=== PATIENT | male | born 1965 | race Caucasian/White ===

== ENCOUNTER 2019-09-22 08:12 | Outpatient (CLI) | payer BC, SELFPAY ==
[2019-09-22 08:30] LABS: Basophils Absolute Auto 0.04 K/mm3 (0.00-0.10); Basophils Percent Auto 0.5 % (0.0-1.0); Eosinophils Absolute Auto 0.39 K/mm3 (0.02-0.50); Eosinophils Percent Auto 5.2 % (1.0-6.0); Hematocrit 41.7 % (40.0-54.0); Hemoglobin 13.1 g/dL (14.0-18.0); Immature Granulocyte Absolute 0.05 K/mm3 (0.00-0.00); Immature Granulocyte Percent A 0.7 % (0.0-0.0); Lymphocytes Absolute Auto 0.78 K/mm3 (1.10-4.50); Lymphocytes Percent Auto 10.5 % (18.0-42.0); Mean Corpuscular HGB Conc 31.4 g/dL (32.0-36.0); Mean Corpuscular Hemoglobin 28.1 pg (27.0-31.0); Mean Corpuscular Volume 89.5 fL (78.0-102.0); Mean Platelet Volume 9.8 fl (8.7-11.0); Monocytes Absolute Auto 0.49 K/mm3 (0.10-0.90); Monocytes Percent Auto 6.6 % (2.0-11.0); Neutrophils Absolute Auto 5.7 K/mm3 (1.7-7.2); Neutrophils Percent Auto 76.5 % (50.0-70.0); Platelet Count Result 173 K/mm3 (150-420); Red Blood Count 4.66 M/mm3 (4.70-6.10); Red Cell Distribution Width 15.9 % (11.6-14.4); White Blood Count 7.4 K/mm3 (4.8-10.8)
[2019-09-22 08:34] LABS: Add Urine Microscopic? YES; Appearance Urine Clear (Clear); Bilirubin Urine Negative (Negative); Blood Urine 1+ (Negative); Color Urine Yellow (Yellow); Glucose Urine UA Negative (Negative); Ketones Urine Negative (Negative); Leukocyte Esterase Ur Negative LEU/UL (Negative); Nitrate Urine Negative (Negative); Protein Urine 2+ (Negative); Specific Grav Ur 1.025 (1.010-1.020); Urobilinogen Urine 0.2 mg/dL (0.2-1.0)
[2019-09-22 08:44] LABS: Hemoglobin A1C 6.1 % (<5.7)
[2019-09-22 08:44] LABS: Bacteria Urine Trace /hpf; Squamous Epithelial Cell Urine Few /hpf (Few); WBC Urine None seen /hpf (0-3)
[2019-09-22 09:53] LABS: Alanine Aminotransferase 24 U/L (16-63); Albumin Level 3.7 g/dL (3.4-5.0); Alkaline Phosphatase 91 U/L (46-116); Anion Gap 9.1 mmol/L (7-16); Aspartate Amino Transferase 15 U/L (15-37); Bilirubin,Total 0.2 mg/dL (0.00-1.00); Blood Urea Nitrogen 13 mg/dL (7-18); Calcium 8.8 mg/dL (8.5-10.1); Carbon Dioxide 35 mmol/L (21-32); Chloride 93 mmol/L (98-108); Cholesterol 190 mg/dL (0-200); Estimated Glomerular Filt Rate > 60; Free T4 Free Thyroxine 0.93 ng/dL (0.76-1.46); Glucose 111 mg/dL (70-99); HDL Direct 70 mg/dL (40-60); LDL Cholesterol Calculated 94 mg/dL (<130); Osmolality Calculated 277 mOsm/kg (285-295); Potassium 4.1 mmol/L (3.5-5.1); Prostate Specific Antigen 0.4 ng/mL (< OR = 4.0); Sodium 133 mmol/L (136-145); Thyroid Stimulating Hormone 2.81 uIU/mL (0.36-3.74); Total Protein 7.8 g/dL (6.4-8.2); Triglycerides 129 mg/dL (0-150)
[2019-09-27 09:44] LABS: Vitamin D 25 Hydroxy 14 ng/mL (30-100)
== END 2019-09-22 08:13 | disposition home or self-care (01) ==
PROVIDERS: PCP Nurse Practitioner Family; Visit Provider Nurse Practitioner Family
DX: R73.03 Prediabetes (principal); E66.9 Obesity, unspecified; E55.9 Vitamin D deficiency, unspecified; I10 Essential (primary) hypertension; Z12.5 Encounter for screening for malignant neoplasm of prostate
CPT/HCPCS: 36415; 80053; 80061; 81001; 82306; 83036; 84153; 84439; 84443; 85025; G0103

== ENCOUNTER 2019-09-30 13:33 | Emergency (ER) | payer BC, SELFPAY ==
--- NOTE | ~2019-09-30 | XR_ITS ---
EXAMINATION: XR chest 1V portable DATE: 09/30/2019 14:03 INDICATION: Hypoxia. Shortness of breath. TECHNIQUE: frontal view of the chest was obtained. COMPARISON: None FINDINGS: The lungs are clear with no focal airspace opacities, pulmonary edema, pleural effusion or pneumothor ax. Heart size is normal. The central pulmonary arteries appear enlarged which can be seen with pulmo nary arterial hypertension. IMPRESSION: 1. Enlargement of the central pulmonary arteries which can be seen with pulmonary arterial hypertensi on. Reviewed, dictated and finalized at location A. IMPRESSION: 1. Enlargement of the central pulmonary arteries which can be seen with pulmona ry arterial hypertension.
--- NOTE | 2019-09-30 13:37 | ECG_ITS ---
Measurements Intervals [place] Rate: 75 P: 49 SD: 172 QRS: 53 QRSD: 89 T: 63 QT: 363 QTc: 406 Interpretive Statements SINUS RHYTHM NONSPECIFIC T-WAVE ABNORMALITY- HIGH LATERAL LEADS BASELINE ARTIFACT- I, II, AVR, AVL, AVF BORDERLINE ECG Electronically Signed On 09-30-2019 14:08:33 CDT by Moose Zelaya D.O.
--- NOTE | 2019-09-30 13:53 | ED.CHESTPAIN ---
HPI - Chest Pain General Chief Complaint: Shortness of Breath/Dyspnea Stated Complaint: sob Source: patient Mode of arrival: ambulatory Limitations: no limitations History of Present Illness HPI narrative: 53-year-old morbidly obese male with hypertension, sleep apnea and GERD comes in with chest pressure rated 4/10, onset approximately 7:00 a.m., about 5-6 hours ago. The discomfort comes and goes. it was particularly severe just before coming to the ED; it's currently rated 4 / 10; it is nonradiating. He denies sweating. He had some nausea this morning, no vomiting. He has had increasing dyspnea with exertion over the past 2 weeks. He complains of increased shortness of breath and occasional cough over the last 2 days. No fever or chills. No known exposure to Covid. He has had increasing swelling over the past 8 days. This corresponds with his blood pressure medicine being changed to 1 without a diuretic. He denies history diabetes coronary artery disease chest pain or COPD. He had childhood asthma. He denies a hx of diabetes. Pt. with recent dx. of hematuria; CT scan planned for next week to evaluate futher. Related Data Home Medications Medication Instructions Recorded Confirmed albuterol sulfate 2 puff INHALATION QID PRN 09/30/19 09/30/19 doxycycline hyclate 100 mg PO BID 09/30/19 09/30/19 lisinopril 40 mg PO DAILY 09/30/19 09/30/19 Allergies Allergy/AdvReac Type Severity Reaction Status Date / Time Penicillins AdvReac unknown Verified 09/19/19 11:54 Review of Systems Constitutional: Constitutional: Reports fatigue (for several weeks) and Denies fever(s) Comments: Eyes: Eyes: Denies change in vision ENT: Denies sore throat Cardiovascular: Cardiovascular: Reports no additional cardiovascular complaints and Denies radiating jaw, neck or arm pain Comments: States about a week ago he stood up, become lightheaded, fell forward hitting his left arm on a table. NO LOC. Respiratory: Respiratory: Reports no additional respiratory complaints Gastrointestinal: Gastrointestinal: Denies abdominal pain, Denies diarrhea and Denies vomiting Genitourinary: Comments: He was recently diagnosed with hematuria. He has a CT scan scheduled for 10/05 for evaluation Musculoskeletal: Musculoskeletal: Denies back pain and Denies muscle cramps Integumentary/Breasts: Skin/Breast: Denies rash Comments: Peripheral neuropathy of lower extremities. With increased swelling his legs feel tighter and uncomfortable. Neurologic: Denies focal weakness and Denies numbness Psychiatric: Psychiatric: Denies no additional psychiatric complaints, Denies anxiety and Denies depression Hematologic/Lymphatic: Hematologic/Lymphatic: Denies easy bleeding PMFSH Past Medical History Medical History Anxiety and depression (~2017) Benign essential hypertension Class 3 severe obesity with body mass index (BMI) of 50.0 to 59.9 in adult Neuropathy, peripheral axonal (~2017) Screening for diabetes mellitus Family History Family History Father Acute myocardial infarction, Onset Age: 48 Mother Family history of malignant neoplasm, Onset Age: 61 Grandparent Family history of malignant neoplasm, Onset Age: 58 Carcinoma of colon, Onset Age: 71 Family history of renal failure, Onset Age: 65 Cerebrovascular accident, Onset Age: 68 Social History Social History Smoking status: Never smoker Second hand tobacco smoke exposure: No Alcohol intake: never Substance use: never 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
[2019-09-30] MEDS: ASPIRIN 81 MG CHEWABLE TABLET 324 MG PO (13:54)
[2019-09-30] MEDS: FUROSEMIDE INJ 100 MG/10 ML VIAL (13:55)
[2019-09-30 13:56] VITALS: BP 126/82; PULSE 69; RESP 22; TEMP 36.7; O2SAT 98
[2019-09-30 14:12] LABS: HCO3 VBG 35.8 mEq/l (24.0-30.0); PO2 VBG 52.3 mmHg (35.0-45.0); pH VBG 7.31 (7.33-7.43)
[2019-09-30 14:14] LABS: PCO2 VBG 72.3 mmHg (42.0-48.0)
[2019-09-30 14:27] LABS: Partial Thromboplastin Time 29.5 SEC (22.3-31.6); Prothrombin Time 10.7 Seconds (9.64-11.0)
[2019-09-30 14:29] LABS: D Dimer 0.49 mg/L (0.19-0.50)
[2019-09-30 14:30] LABS: Alanine Aminotransferase 26 U/L (16-63); Albumin Level 3.3 g/dL (3.4-5.0); Alkaline Phosphatase 86 U/L (46-116); Anion Gap 6.8 mmol/L (7-16); Aspartate Amino Transferase 18 U/L (15-37); BNP 61.1 pg/mL (0-100); Bilirubin,Total 0.7 mg/dL (0.00-1.00); Blood Urea Nitrogen 14 mg/dL (7-18); Calcium 8.8 mg/dL (8.5-10.1); Carbon Dioxide 38 mmol/L (21-32); Chloride 99 mmol/L (98-108); Estimated Glomerular Filt Rate > 60; Glucose 121 mg/dL (70-99); Osmolality Calculated 291 mOsm/kg (285-295); Potassium 3.8 mmol/L (3.5-5.1); Sodium 140 mmol/L (136-145); Total Protein 7.6 g/dL (6.4-8.2)
[2019-09-30 14:32] LABS: Troponin I < 0.02 ng/mL (0.00-0.056)
[2019-09-30 14:56] VITALS: BP 134/42; PULSE 67; O2SAT 95
[2019-09-30 15:50] LABS: Appearance Urine Clear (Clear); Bilirubin Urine Negative (Negative); Color Urine Yellow (Yellow); Glucose Urine UA Negative (Negative); Ketones Urine Negative (Negative); Leukocyte Esterase Ur Negative (Negative); Nitrate Urine Negative (Negative); Protein Urine Negative (Negative); Specific Grav Ur 1.015 (1.010-1.020); Urobilinogen Urine 0.2 mg/dL (0.2-1.0)
--- NOTE | 2019-09-30 15:52 | PC.NURSE ---
CALL PLACED TO [facility] FOR POSSIBLE ADMISSION
[2019-09-30 15:56] LABS: Add Urine Microscopic? YES; Bacteria Urine Trace /hpf; Blood Urine Trace (Negative); RBC Urine 0-2 /hpf (0-2); Squamous Epithelial Cell Urine Rare /hpf (Few); WBC Urine 0-3 /hpf (0-3)
--- NOTE | 2019-09-30 16:02 | PC.NURSE ---
NITRO 0.4 MG TABLET GIVEN SL X 1 BP DROPS - PRESSURE 5/10, NO CHANGES WITH INTRO
[2019-09-30 16:46] VITALS: BP 118/54; PULSE 69; O2SAT 98
[2019-09-30 17:18] VITALS: BP 171/94; PULSE 70
--- NOTE | 2019-09-30 17:49 | PC.NURSE ---
IV intact upon discharge
== END 2019-09-30 17:48 | disposition short-term general hospital (02) ==
PROVIDERS: Emergency Provider Family Medicine; PCP Nurse Practitioner Family
DX: R09.02 Hypoxemia (principal); R07.9 Chest pain, unspecified
CPT/HCPCS: 36415; 71045; 80053; 81001; 82803; 83735; 83880; 84484; 85380; 85610; 85730; 93005; 96372; 99285; A9270; J1940

== ENCOUNTER 2019-09-30 18:22 | Inpatient (IN) | payer BC, SELFPAY ==
[2019-09-30] VITALS (8 sets, daily range): BP systolic 168–170; BP diastolic 77–80; PULSE 67–97; RESP 17–20; TEMP 36.4–36.7; O2SAT 94–100; BMI 52.9
--- NOTE | ~2019-09-30 | XR_ITS ---
EXAMINATION: XR chest 1V portable DATE: 10/07/2019 05:40 INDICATION: Hypercapnic respiratory failure. Pneumonia. TECHNIQUE: A single frontal view of the chest was obtained. COMPARISON: Chest single view 10/06/2019 FINDINGS: Sensitivity is decreased by obesity. There are mild airspace opacities in left lower lung z one. No pleural effusion or pneumothorax. Cardiomegaly is noted. IMPRESSION: 1. Stable mild airspace opacities in left lower lung zone, consistent with atelectasis versus pneumon ia. 2. Cardiomegaly. Reviewed, dictated and finalized at location A. IMPRESSION: 1. Stable mild airspace opacities in left lower lung zone, consistent with atel ectasis versus pneumonia. 2. Cardiomegaly.
--- NOTE | ~2019-09-30 | XR_ITS ---
XR chest PICC line DATE: 10/05/2019 12:13 INDICATION: PICC line placement TECHNIQUE: Portable AP chest on 10/05/2019 at 1209 hours COMPARISON: 10/05/2019 portable AP chest at 0821 hours FINDINGS: ET tube is in satisfactory position 3 cm above kallie. A nasogastric tube is noted passing into the stomach. Right upper extremity PIC catheter tip extends into the lower superior vena cava and apparently into the right atrium. The tip is difficult to definitively localize due to superimposition on the thoraci c spine. No pneumothorax is evident. There are bilateral lower lung infiltrates and/or atelectasis, stable. IMPRESSION: Right upper extremity PIC catheter placement, tip apparently in right atrium, not well-de monstrated Reviewed, dictated and finalized at Location A. Reviewed, dictated and finalized at location A. IMPRESSION: Right upper extremity PIC catheter placement, tip apparently in rig ht atrium, not well-demonstrated
--- NOTE | ~2019-09-30 | XR_ITS ---
XR chest 1V portable DATE: 10/05/2019 08:26 INDICATION: Acute respiratory failure TECHNIQUE: Portable AP chest on 10/05/2019 at 0821 hours COMPARISON: 10/04/2019 portable AP chest at 0508 hours FINDINGS: ET tube in satisfactory position 2 cm above kallie. NG tube in stomach. Cardiomegaly. There is left lower lobe infiltrate and/or atelectasis and mild right basilar infiltrat e or atelectasis. There is moderate elevation of the right leaf of the diaphragm. Diffuse osteopenia. IMPRESSION: ET and NG tubes appear in satisfactory position Left lower lobe and lesser right basilar infiltrate and/atelectasis Reviewed, dictated and finalized at location A.
--- NOTE | ~2019-09-30 | XR_ITS ---
EXAMINATION: XR abdomen NG/feed tube insert DATE: 10/01/2019 02:54 INDICATION: Orogastric tube placement TECHNIQUE: A supine view of the abdomen and lower chest was obtained for evaluation of feeding tube placement. COMPARISON: None. FINDINGS: Orogastric tube tip in proximal side port in the body of the stomach. There are some gas extending ac ross the transverse colon. No dilated loops of bowel to suggest obstruction. Mild bibasilar airspace opacities which could represent atelectasis and/or pneumonia. IMPRESSION: 1. Orogastric tube in the stomach. Reviewed, dictated and finalized at location A.
--- NOTE | ~2019-09-30 | US_ITS ---
EXAMINATION: US venous doppler [facility] DATE: 10/01/2019 10:43 INDICATION: Lower limb edema. TECHNIQUE: Grayscale ultrasound images without and with compression and Doppler ultrasound images of the bilateral lower extremity veins were obtained. COMPARISON: None. FINDINGS: The visualized portions of right common femoral vein, profunda (deep) femoral vein, femoral vein, pop liteal vein, and greater saphenous vein outflow are patent. The calf veins are not well evaluated. The visualized portions of left common femoral vein, profunda femoral vein, femoral vein, popliteal v ein, and greater saphenous vein outflow are patent. The calf veins are not well evaluated. IMPRESSION: 1. No deep venous thrombosis. Reviewed, dictated and finalized at location E.
--- NOTE | ~2019-09-30 | US_ITS ---
US right upper quadrant DATE: 10/04/2019 08:45 INDICATION: Elevated liver function tests TECHNIQUE: Real-time imaging of the liver, pancreas, gallbladder areas COMPARISON: None FINDINGS: There is limited visualization of the pancreas, particularly at the head and tail. No obvio us pancreatic mass lesion. Normal hepatic portal venous flow direction. No hepatic space-occupying mass lesion is evident, but p enetration of the liver was suboptimal. Hepatic steatosis is suggested. No gallstones are evident. Diffuse gallbladder wall thickening is suggested, possibly secondary to ch ronic cholecystitis. No bile duct dilatation is evident. IMPRESSION: Limited examination; consider CT abdomen pelvis for more optimal evaluation of the liver and pancreas Thickening of the gallbladder wall; consider chronic cholecystitis Reviewed, dictated and finalized at Location A. Reviewed, dictated and finalized at location A. IMPRESSION: Limited examination; consider CT abdomen pelvis for more optimal ev aluation of the liver and pancreas Thickening of the gallbladder wall; consider chronic cholecystitis
--- NOTE | ~2019-09-30 | XR_ITS ---
XR chest 1V portable DATE: 10/04/2019 05:22 INDICATION: Respiratory failure TECHNIQUE: Portable AP chest on 10/04/2019 at 0508 hours COMPARISON: 10/03/2019 portable AP chest at 0537 hours FINDINGS: ET tube in satisfactory position 2 cm above kallie. An NG tube is noted in the stomach. Heart size is not optimally evaluated on AP projection because of magnification. There is interval improvement of infiltrates in the mid and lower lung zones, with mild residual infi ltrate or atelectasis primarily at the right lung base. No pleural effusion or pulmonary vascular congestion or pneumothorax is evident. IMPRESSION: ET and NG tubes in satisfactory position Improvement of bilateral infiltrates since 10/03/2019 Reviewed, dictated and finalized at location A.
--- NOTE | ~2019-09-30 | XR_ITS ---
EXAMINATION: XR chest ET placement DATE: 10/01/2019 02:54 INDICATION: Endotracheal tube placement. TECHNIQUE: frontal view of the chest was obtained. COMPARISON: Chest radiograph dated 09/30/2019 FINDINGS: Endotracheal tube tip 2.5 cm above the kallie. New patchy airspace opacities in the right mid and low er lung zone and left perihilar region. No pleural effusion or pneumothorax. Borderline heart size ac counting for AP technique. IMPRESSION: 1. New opacities in the right mid to lower lung and left perihilar regions which could represent pulm onary edema, atelectasis, pneumonia or some combination thereof. Reviewed, dictated and finalized at location A. IMPRESSION: 1. New opacities in the right mid to lower lung and left perihilar regions whic h could represent pulmonary edema, atelectasis, pneumonia or some combination t hereof.
--- NOTE | ~2019-09-30 | XR_ITS ---
EXAMINATION: XR chest 1V portable EXAM DATE: 10/06/2019 06:13 INDICATION: Respiratory failure. TECHNIQUE: Portable AP frontal chest x-ray was obtained. Comparison is made to prior examination from 10/05/2019. FINDINGS: Endotracheal tube tip is 2 centimeters above the kallie (ideal range is between 2 to 5 cm). There is a nasogastric tube seen with tip collimated off the study, but below the left hemidiaphrag m. There is a right-sided PICC line, its tip poorly visualized but at least to the cavoatrial junctio n. There is cardiomegaly, pulmonary vascular congestion, left basilar subsegmental airspace disease at l east partly atelectasis given linear appearance and some less well-defined nonspecific bibasilar airs pace disease. The bones and soft tissues are unremarkable. Compared to prior study, there may be luiz e progression in the pulmonary vascular congestion. IMPRESSION: 1. Lines, tubes as above. 2. Bibasilar airspace disease, partly atelectasis but superimposed pneumonia, edema or underlying le ft infrahilar malignancy not excludable. 3. Cardiomegaly, pulmonary vascular congestion. Reviewed, dictated and finalized at location A. IMPRESSION: 1. Lines, tubes as above. 2. Bibasilar airspace disease, partly atelectasis but superimposed pneumonia, edema or underlying left infrahilar malignancy not excludable. 3. Cardiomegaly, pulmonary vascular congestion.
--- NOTE | ~2019-09-30 | XR_ITS ---
EXAMINATION: XR chest 1V portable DATE: 10/03/2019 05:57 INDICATION: Respiratory failure TECHNIQUE: frontal view of the chest was obtained. COMPARISON: Chest radiograph dated 10/02/2019 FINDINGS: Endotracheal tube tip 2.0 cm above the kallie. Nasogastric tube extends below the left hemidiaphragm with distal tip collimated off the study. Small lung volumes. No significant interval change in airspace opacities in the bilateral mid and low er lung zones. No pneumothorax or definitive pleural effusion. Borderline heart size accounting for A P technique. IMPRESSION: 1. No significant change in mild opacities in the bilateral mid and lower lung zones which could repr esent pulmonary edema, atelectasis, pneumonia or some combination thereof. 2. Borderline heart size. Reviewed, dictated and finalized at location A. IMPRESSION: 1. No significant change in mild opacities in the bilateral mid and lower lung zones which could represent pulmonary edema, atelectasis, pneumonia or some com bination thereof. 2. Borderline heart size.
--- NOTE | ~2019-09-30 | XR_ITS ---
EXAMINATION: XR chest 1V portable DATE: 10/02/2019 05:48 INDICATION: Respiratory failure TECHNIQUE: frontal view of the chest was obtained. COMPARISON: Chest radiograph dated 10/01/2019 FINDINGS: Endotracheal tube tip 2.4 cm above the kallie. Nasogastric tube extends below the left hemidiaphragm with distal tip collimated off the study. 2 New opacities in the left mid and lower lung zones and slight improvement in opacities in the right m id and lower lung zone. No pneumothorax or definitive pleural effusion. Borderline heart size for AP technique. IMPRESSION: 1. Mild opacities in the mid and lower lung zones with slight improvement on the right and slight inc rease on the left. Differential would include pulmonary edema, atelectasis, pneumonia or some combina tion thereof. Reviewed, dictated and finalized at location A. IMPRESSION: 1. Mild opacities in the mid and lower lung zones with slight improvement on th e right and slight increase on the left. Differential would include pulmonary e isac, atelectasis, pneumonia or some combination thereof.
--- NOTE | 2019-09-30 18:36 | ADMGEN ---
This patient, Justo Hancock Jr., was admitted to IMU Room 206-01. Patient/family oriented to hospital policies and general routines including ID bracelet, bed and alarms, visiting hours, pain management, procedures, bathroom and other care routines, personal items, smoking policy, room service/diet, and visiting hours. Valuables list has been completed. Information on how to activate the Rapid Response Team has been discussed. Patient/Family are encouraged to report perceived risks to care and to ask questions if they do not understand what they are told or what they should do.
--- NOTE | 2019-09-30 19:00 | PM.IMHP ---
H&P: HPI History of Present Illness Chief complaint: Acute Res. Failure, Chest Pain <Brooke Wills PA-C - Last Filed: 09/30/19 21:45> Narrative: Justo Hancock Jr. is a very pleasant 53-year-old male with obstructive sleep apnea on CPAP at nighttime, hypertension, GERD, borderline diabetes, and morbid obesity who is being directly admitted from the emergency department at [facility] for further treatment and evaluation of acute respiratory failure and chest pain. Over the past month or so he reports increasing dyspnea on lesser and lesser exertion and it is to the point where he is having a difficult time catching his breath with minimal activity. This morning he woke a bit early and tells me ?I just did not feel right? but he could not really pinpoint anything specific. With prompting, he does note that he was feeling a be a bit confused and goes on to say that his thought process has been slower over the past 10 months or so. Additionally, he has had some falls out of bed when getting up to use the bathroom at nighttime which he blames on mild confusion. He is compliant with his CPAP, but tells me that he has gained 100 pound since his previous sleep study many years ago. In any regard, not long prior to presentation to the outside hospital he developed mid/upper chest pressure with ?feelings like I was drowning.? The chest pressure does not radiate. It seems to be a bit better now that he has been started on a BiPAP. He has chronic 2 pillow orthopnea, which is unchanged. He does note increasing lower extremity edema over the past 1 weeks time, and then goes on to say that his hydrochlorothiazide was stopped about a week ago due to hyponatremia noted on routine labs. In any regard, he was found to be hypoxic and hypercarbic at the outside hospital, is being transferred here for further evaluation. He has no pleuritic pain and denies recent travel and history of venous thromboembolism. He also denies nausea, vomiting, and sweats. No vertigo, auditory visual changes, focal weakness, or paresthesias. <Brooke Wills PA-C - Last Filed: 09/30/19 21:45> Review of Systems Review of Systems: Narrative: Twelve systems were reviewed with pertinent positives and negatives as per HPI. He reports feeling a bit warm at the time my evaluation but denies fever. No chills or sweats. No headache. He has had a mild cough which is nonproductive. No recent travel. He denies sick contacts. He had a stress test done about 6 years ago which was unremarkable. He does have a heart murmur which he is known about since age of 16, and was told that it was nothing to worry about. Occasional mild BPH symptoms. He denies hematuria. Except as documented, all other systems were reviewed and are negative. <Brooke Wills PA-C - Last Filed: 09/30/19 21:45> [facility] Past Medical History Medical History: Medical History Anxiety and depression (~2017) Borderline diabetes Hemoglobin A1c in 2019 was 6.1%. Class 3 severe obesity with body mass index (BMI) of 50.0 to 59.9 in adult Essential hypertension Obstructive sleep apnea on CPAP Peripheral neuropathy <Brooke Wills PA-C - Last Filed: 09/30/19 21:45> Surgical History Surgical History: Surgical History History of appendectomy History of arthroscopy of right knee History of right inguinal hernia repair <Brooke Wills PA-C - Last Filed: 09/30/19 21:45> Family History Family History: Family History Father Acute myocardial infarction, Onset Age: 48 Mother Family history of malignant neoplasm, Onset Age: 61 Grandparent Family history of malignant neoplasm, Onset Age: 58 Carcinoma of colon, Onset Age: 71 Family history of renal failure, Onset Age: 65
[2019-09-30 19:11] LABS: Alveolar/Arterial O2 Gradient 60.2 mmHg; Base Excess ABG 11.3 mEq/l (+/-2.0); Carboxyhemoglobin 0.9 % THb (0-2.0); Fractional Inspired Oxygen 34 %; HCO3 ABG 40.8 mEq/l (22.0-26.0); Methemoglobin ABG 0.3 %THb (0-1.5); Oxygen Content ABG 17.7 %vol (16.0-22.0); Oxygen Saturation ABG 95.5 % (95.0-100.0); Oxyhemoglobin 94.3 % THb (90.0-100.0); PO2 FiO2 Ratio Arterial Blood 2.59 %; Reduced Hemoglobin 4.5 %THb (0-5.0); Total Hemoglobin 13.3 g/dL (12.0-18.0); pH ABG 7.321 (7.350-7.450)
[2019-09-30 19:14] LABS: Device NASAL CANNULA; Liters per Minute 3.5 LPM; Modified Allen's Test Pass; PCO2 ABG 80.9 mmHg (35.0-45.0); Site Drawn RIGHT RADIAL
[2019-09-30 21:32] LABS: Troponin I < 0.012 ng/mL (0.000-0.034)
--- NOTE | 2019-09-30 21:40 | PC.NURSE ---
2100 BEDSIDE ACCUCHECK WAS 100.
[2019-09-30 22:04] LABS: Base Excess ABG 4.6 mEq/l (+/-2.0); Fractional Inspired Oxygen 30 %; HCO3 ABG 34.4 mEq/l (22.0-26.0); Methemoglobin ABG 0.3 %THb (0-1.5); Oxygen Saturation ABG 90.2 % (95.0-100.0); Oxyhemoglobin 89.7 % THb (90.0-100.0); PCO2 ABG 79.8 mmHg (35.0-45.0); PO2 ABG 69.1 mmHg (80.0-100.0); Total Hemoglobin 13.5 g/dL (12.0-18.0); pH ABG 7.253 (7.350-7.450)
[2019-09-30 22:05] LABS: Device NON-INVASIVE VENT; Modified Allen's Test Pass; Non-Invasive Expiratory Pressure 6 CMH2O; Non-Invasive Inspiratory Pressure 16 CMH2O; Non-Invasive Vent Rate 16 /MIN; Site Drawn LEFT RADIAL
[2019-09-30 23:43] LABS: Glucose Point of Care 123 (65-105)
[2019-09-30 23:48] LABS: Alveolar/Arterial O2 Gradient 55.3 mmHg; Base Excess ABG 9.2 mEq/l (+/-2.0); Fractional Inspired Oxygen 32 %; HCO3 ABG 39.8 mEq/l (22.0-26.0); Methemoglobin ABG 0.4 %THb (0-1.5); Oxygen Content ABG 17.1 %vol (16.0-22.0); Oxygen Saturation ABG 89.6 % (95.0-100.0); Oxyhemoglobin 89.4 % THb (90.0-100.0); PO2 ABG 67.7 mmHg (80.0-100.0); PO2 FiO2 Ratio Arterial Blood 2.12 %; Reduced Hemoglobin 9.2 %THb (0-5.0); Total Hemoglobin 13.6 g/dL (12.0-18.0)
[2019-09-30 23:51] LABS: Device NASAL CANNULA; Modified Allen's Test Pass; PCO2 ABG 89.9 mmHg (35.0-45.0); Site Drawn RIGHT RADIAL; pH ABG 7.264 (7.350-7.450)
[2019-10-01] VITALS (25 sets, daily range): BP systolic 96–169; BP diastolic 51–108; PULSE 67–91; RESP 16–28; TEMP 36.8–37.3; O2SAT 79–100; BMI 51.7
[2019-10-01 00:50] LABS: Troponin I < 0.012 ng/mL (0.000-0.034)
--- NOTE | 2019-10-01 01:00 | WPDPROCEDUR ---
Procedures Intubation Intubation Date: 10/01/19 Intubation Time: 01:00 A pre-procedural Time-Out was completed immediately before starting the procedure and confirmed: Patient Identification, Site, Procedure, Patient Position and the Availability of Requisite Equipment: Yes Sedative: etomidate Mg given: 40 Paralytic: succinylcholine Mg given: 40 Laryngoscope: fiber optic video scope ET tube size: cuffed Tube secured depth (cm): 24 Tube secured location: lips Tube placement confirmation: visualized tube passing through cords, equal breath sounds bilaterally, no breath sounds over epigastrium and confirmation by capnometry Patient tolerated procedure: well Additional comments: The patient's airway was significantly anterior. Oropharynx was crowded.
--- NOTE | 2019-10-01 01:30 | PM.CCN ---
Critical Care Event Note Summary Code activated: No Narrative: Nursing staff stopped me as I was passing the desk in the IMU on 09/30/2019 at 23:40. Patient has been admitted for obesity hypoventilation/obstructive sleep apnea overlap syndrome with suspected pulmonary hypertension. The patient had ripped off his BiPAP mask and stated that he would not wear it anymore. I went and talked to the patient and the patient was witnessed to be nodding off to sleep while sitting up in bed. He has had several episodes of falls recently. He reports that he has fallen out of bed while sitting up. He is also on occasion fallen asleep while standing up and fell. The patient states that he is fine and does not need the BiPAP or need to be intubated. But again the patient was nodding off in the middle of sentences while sitting on the edge of the bed. He was also drifting off in the middle of a sentence. Initially the patient was still refusing to wear the BiPAP. He stated that he did not want to but did not want to be intubated. Explained to him that he would need to be compliant with the BiPAP therapy in order to avoid intubation. The patient admitted to having clouded sensorium and feeling as if it is taking him a long time to process information. He has also felt increasingly more fatigued. He denies any significant cough. He had been tested twice (at other facilities) within the last week for COVID-19 and was found to be negative. Shortly after I left the patient's room patient fell asleep and nursing staff was able to place a BiPAP back on the patient. The patient BiPAP settings were changed from 16/6 with a rate of 14 to 20/8 with a rate of 20. A repeat ABG was obtained 1 hour later and this demonstrated even worsening respiratory acidosis. 09/30/19 09/30/19 09/30/19 19:03 21:53 23:43 Puncture Site Right radial Left radial Right radial ABG pH 7.321 L 7.253 L* 7.264 L* ABG pCO2 80.9 H* 79.8 H* 89.9 H* ABG pO2 88.0 69.1 L 67.7 L ABG PO2/FiO2 Ratio 2.59 2.30 2.12 ABG HCO3 40.8 H 34.4 H 39.8 H ABG O2 Saturation 95.5 90.2 L 89.6 L ABG O2 Content 17.7 17.0 17.1 ABG Base Excess 11.3 4.6 9.2 A-a Gradient 60.2 51.0 55.3 Oxyhemoglobin 94.3 89.7 L 89.4 L Carboxyhemoglobin 0.9 1.0 1.0 Reduced Hemoglobin 4.5 9.0 H 9.2 H Total Hemoglobin 13.3 13.5 13.6 O2 Delivery Device Nasal cannula Non-invasive vent Nasal cannula O2 Liters/Min 3.5 Not Reportable 3.0 Vent Rate 16 FiO2 34 30 32 10/01/19 10/01/19 01:34 03:44 Puncture Site Right radial Right radial ABG pH 7.223 L* 7.410 ABG pCO2 103.1 H* 62.8 H* ABG pO2 103.0 H 79.3 L ABG PO2/FiO2 Ratio 2.58 1.59 ABG HCO3 41.5 H 38.9 H ABG O2 Saturation 96.1 95.5 ABG O2 Content 17.9 17.0 ABG Base Excess 9.8 11.8 A-a Gradient 63.6 206.6 Oxyhemoglobin 95.2 94.7 Carboxyhemoglobin 0.7 Reduced Hemoglobin 4.4 Total Hemoglobin 13.3 12.7 O2 Delivery Device Bipap Ventilator O2 Liters/Min Not Reportable Not Reportable Vent Rate 24 FiO2 40 50 With a worsening in his blood gas the patient was transferred to the ICU. He was intubated around 2:00 a.m. the patient was intubated and sedated. Was placed on initially tidal volume of 500 however he was alarming high pressures. His tidal volume was decreased to 450. His rate was initially set at 24. When his repeat blood gas demonstrated a respiratory alkalosis is rate was decreased to 20. Peep of 5 and FiO2 is at 50%. The patient's x-ray was personally reviewed the patient's ET tube approximately 3 cm from the kallie. The x-ray was concerning for edema versus infiltrates. The patient was started on empiric antibiotic therapy with Rocephin and azithromycin. Radiologic interpretation of x-ray is pending. The circus artist was called to notify him of patient's transferred to the ICU and resultant intubation. Ventilator settings were discussed recommendations as to antibiotic therapy were dis
[2019-10-01 01:40] LABS: Alveolar/Arterial O2 Gradient 63.6 mmHg; Base Excess ABG 9.8 mEq/l (+/-2.0); Fractional Inspired Oxygen 40 %; HCO3 ABG 41.5 mEq/l (22.0-26.0); Oxygen Content ABG 17.9 %vol (16.0-22.0); Oxygen Saturation ABG 96.1 % (95.0-100.0); Oxyhemoglobin 95.2 % THb (90.0-100.0); PO2 FiO2 Ratio Arterial Blood 2.58 %; Total Hemoglobin 13.3 g/dL (12.0-18.0)
[2019-10-01 01:42] LABS: Device BIPAP; Modified Allen's Test Pass; PCO2 ABG 103.1 mmHg (35.0-45.0); Site Drawn RIGHT RADIAL; pH ABG 7.223 (7.350-7.450)
[2019-10-01 01:43] LABS: Expiratory Pressure 8 cmH2O; Inspiratory Pressure 22 cmH2O
--- NOTE | 2019-10-01 02:10 | PC.NURSE ---
This patient, Justo Hancock Jr., was transferred to ICU 12 on 10/01/19 at 0200 FOR ELECTIVE INTUBATION DUE TO MULT. ABNORMAL ABG'S. Personal belongings sent with patient. Belongings list checked and signed with receiving LIANE CHRISTIAN ]. Report given to LIANE CHRISTIAN. Appropriate documentation sent with patient. UNABLE TO CONTACT JAIDA GIRLFRIEND AT [phone].
[2019-10-01] MEDS: RAPID SEQUENCE INTUBATION KIT 1 EACH (02:15)
[2019-10-01] MEDS: PROPOFOL IV EMULSION 100 ML 5.2 MG IV CONT (02:45)
--- NOTE | 2019-10-01 03:26 | PC.NURSE ---
This patient, Justo Hancock Jr., was received from [[phone] ] on 10/01/19 at 0200. Personal belongings list checked and signed. Patient/family oriented to unit policies and routines Dr. Beltran and RT aware of patient's arrival. Patient agrees to intubation at this time.
[2019-10-01 03:49] LABS: Alveolar/Arterial O2 Gradient 206.6 mmHg; Base Excess ABG 11.8 mEq/l (+/-2.0); Carboxyhemoglobin 0.7 % THb (0-2.0); Fractional Inspired Oxygen 50 %; HCO3 ABG 38.9 mEq/l (22.0-26.0); Methemoglobin ABG 0.2 %THb (0-1.5); Oxygen Saturation ABG 95.5 % (95.0-100.0); Oxyhemoglobin 94.7 % THb (90.0-100.0); PO2 ABG 79.3 mmHg (80.0-100.0); PO2 FiO2 Ratio Arterial Blood 1.59 %; Reduced Hemoglobin 4.4 %THb (0-5.0); Total Hemoglobin 12.7 g/dL (12.0-18.0)
[2019-10-01 03:51] LABS: PCO2 ABG 62.8 mmHg (35.0-45.0); Site Drawn RIGHT RADIAL
[2019-10-01 03:52] LABS: Arterial Blood Gas PEEP 5 cmH2O; Arterial Blood Gas Vent Mode CMV; Arterial Blood Gas Ventilator rate 24 /MIN; Device VENTILATOR; Modified Allen's Test Unable to perform
[2019-10-01 03:53] LABS: Arterial Blood Gas Tidal Volume 450 ml
[2019-10-01] MEDS: PROPOFOL IV EMULSION 100 ML 51.6 MG IV CONT ×10 (04:15→23:36)
[2019-10-01 05:35] LABS: Basophils Percent Auto 0.4 % (0.2-1.2); Eosinophils Absolute Auto 0.3 K/mm3 (0-0.3); Eosinophils Percent Auto 3.5 % (0-4.4); Hematocrit 39.3 % (42.0-52.0); Hemoglobin 11.6 g/dL (14.0-18.0); Immature Granulocyte Absolute 0.06 K/mm3 (0.00-0.031); Immature Granulocyte Percent A 0.7 % (0-0.5); Lymphocytes Absolute Auto 0.64 K/mm3 (0.9-3.2); Lymphocytes Percent Auto 7.2 % (18.3-44.2); Mean Corpuscular HGB Conc 29.5 g/dl (32-36); Mean Corpuscular Hemoglobin 27.9 pg (26-34); Mean Corpuscular Volume 94.5 fl (80-100); Mean Platelet Volume 10.3 fl (7.4-10.4); Monocytes Absolute Auto 0.6 K/mm3 (0.1-0.6); Monocytes Percent Auto 6.6 % (2.6-8.5); Neutrophils Absolute Auto 7.3 K/mm3 (1.3-6.7); Neutrophils Percent Auto 81.6 % (45.5-73.1); Platelet Count Result 200 k/mm3 (150-375); Red Blood Count 4.16 M/mm3 (4.6-6.20); Red Cell Distribution Width 16.6 % (11.5-14.5); White Blood Count 8.9 K/mm3 (4.5-10.0)
[2019-10-01 05:57] LABS: Add Urine Microscopic? YES; Appearance Urine Clear (Clear); Bilirubin Urine Negative (Negative); Blood Urine Negative (Negative); Color Urine Yellow (Yellow); Glucose Urine UA Negative (Negative); Ketones Urine Negative (Negative); Leukocyte Esterase Ur Negative LEU/UL (Negative); Mucus Urine Few /lpf; Nitrate Urine Negative (Negative); Protein Urine 2+ mg/dL (Negative); Squamous Epithelial Cell Urine Rare /hpf (Few); Transitional Epi Cells Urine Rare /hpf (None Seen)
[2019-10-01 05:59] LABS: Specific Grav Ur 1.031 (1.001-1.035)
[2019-10-01] MEDS: PROPOFOL IV EMULSION 100 ML 31 MG IV CONT (06:29)
[2019-10-01] MEDS: ASPIRIN 81 MG ENTERIC TABLET PO (07:21)
[2019-10-01] MEDS: FUROSEMIDE 40 MG TABLET PO (07:21)
[2019-10-01] MEDS: ENOXAPARIN 40 MG/0.4 ML SYRINGE SUB-Q (07:22)
[2019-10-01 07:53] LABS: Blood Urea Nitrogen 17 mg/dL (9-20); Calcium 8.4 mg/dL (8.4-10.2); Carbon Dioxide > 40 mmol/L (22-30); Chloride 92 mmol/L (98-107); Cholesterol 171 mg/dL (0-200); Estimated CRCL calculation 169 ml/min; Estimated Glomerular Filt Rate > 60; Glucose 106 mg/dL (75-110); HDL Direct 64 mg/dL; Potassium 3.8 mmol/L (3.4-5.0); Sodium 135 mmol/L (137-145); Triglycerides 95 mg/dL (<150)
[2019-10-01 08:03] LABS: LDL Cholesterol Direct 84 mg/dL
--- NOTE | 2019-10-01 09:06 | WPDCNINT ---
Assessment and Plan Assessment and plan (1) Acute and chronic respiratory failure: Code(s): J96.20 - Acute and chronic respiratory failure, unspecified whether with hypoxia or hypercapnia Status: Acute Assessment and Plan: Acute on chronic Respiratory failure secondary to obesity hypoventilation syndrome and suspected pulmonary hypertension, pulmonary edema and atelectasis Continue full mechanical ventilation support to prevent hypoxemia/hypercarbia and end organ damage. ABG and PCXR reviewed and will repeat in am. Low tidal volume ventilation strategy to prevent volutrauma Bronchodilators IV Lasix as per admitting physician's note patient has been tested for COVID-19 twice in recent days and was negative (2) Morbid obesity: Code(s): E66.01 - Morbid (severe) obesity due to excess calories Status: Acute (3) Obstructive sleep apnea on CPAP: Code(s): G47.33 - Obstructive sleep apnea (adult) (pediatric); Z99.89 - Dependence on other enabling machines and devices Status: Acute Assessment and Plan: currently intubated (4) Benign essential hypertension: Code(s): I10 - Essential (primary) hypertension Status: Acute Assessment and Plan: monitor blood pressure as it is in controlled range at this time and treat accordingly (5) Right heart failure: Code(s): I50.810 - Right heart failure, unspecified Status: Acute Assessment and Plan: patient is showing signs of right heart failure and cor pulmonale a likely from chronic pulmonary hypertension from sleep apnea echocardiogram is ordered and pending Lasix IV for volume overload DVT prophylaxis - Lovenox Stress ulcer prophylaxis - ordered Pap Nutrition - start Tube Feeds Code Status - Full Code Total Critical Care Time - 40 minutes Due to a high probability of clinically significant, life threatening deterioration, the patient required my highest level of preparedness to intervene emergently and I personally spent this critical care time directly and personally managing the patient. This critical care time included obtaining a history; examining the patient; pulse oximetry; ordering and review of studies; arranging urgent treatment with development of a management plan; evaluation of patient's response to treatment; frequent reassessment; and discussions with other providers. It was exclusive of separately billable procedures and treating other patients and teaching time. Please see Assessment and Plan section and the rest of the note for further information on patient assessment and treatment Speech Therapist Consult Note Consult date: 05/20/20 Time Seen: 08:00 HPI: Justo Hancock Jr. is a 53 year old morbidly obese male with past medical history of FENG, hypertension, GERD and borderline diabetes was transferred from [facility] where he presented with chief complaint of shortness of breath. ABG showed hypercarbia and respiratory acidosis. patient was started on BiPAP therapy. patient's ABG did not improved on BiPAP and he was confused and hence was intubated and transferred to ICU last night. Patient was sedated. History obtained from chart and Physician sign out. Pt intubated and sedated at this time and unable to provide any other history. Review of Systems Review of Systems: ROS unobtainable: Yes unobtainable due to endotracheal tube PMFSH Past Medical History Medical History Anxiety and depression (~2017) Borderline diabetes Hemoglobin A1c in 2019 was 6.1%. Class 3 severe obesity with body mass index (BMI) of 50.0 to 59.9 in adult Essential hypertension Obstructive sleep apnea on CPAP Peripheral neuropathy Surgical History Surgical History History of appendectomy History of arthroscopy of right knee History of right inguinal hernia repair Family His
[2019-10-01] MEDS: FAMOTIDINE 20 MG TABLET PO ×2 (09:17→19:46)
[2019-10-01] MEDS: FUROSEMIDE INJ 40 MG/4 ML VIAL IV PUSH ×2 (09:17→16:09)
[2019-10-01 12:15] LABS: Glucose Point of Care 93 (65-105)
--- NOTE | 2019-10-01 12:48 | PM.CNPUL ---
Assessment and Plan Assessment and plan (1) Acute and chronic respiratory failure: Qualifiers: Respiratory failure complication: hypercapnia Qualified Code(s): J96.22 - Acute and chronic respiratory failure with hypercapnia Code(s): J96.20 - Acute and chronic respiratory failure, unspecified whether with hypoxia or hypercapnia Status: Acute Assessment and Plan: His pCO2 is improving with mechanical ventilation, and he will be managed by the personal property appraiser for vent weaning; he has underlying chronic respiratory failure due to obesity, and may benefit from a NPPV in the home setting. Prior to admission, he was not using his PAP routinely, and this will be discussed when he is alert, off the vent and able to make decisions regarding his treatment options. ABG, CXR, other labs reviewed. (2) Obstructive sleep apnea on CPAP: Code(s): G47.33 - Obstructive sleep apnea (adult) (pediatric); Z99.89 - Dependence on other enabling machines and devices Status: Acute Assessment and Plan: was not compliant at home; see above (3) Right heart failure: Code(s): I50.810 - Right heart failure, unspecified Status: Acute Assessment and Plan: acute, due to untreated FENG and pulmonary hypertension,; echo on large patinet on a vent is often not accurate; will review when available. Continue diuresis. History of Present Illness History of Present Illness Consult date: 10/01/19 Requesting physician: Russ Lyons MD Reason for consult: hypoxemia Chief complaint: Acute Res. Failure, Chest Pain Narrative: NEW: Dr Lyons consulted me to see this 53 yo man with FENG whi was transferred from [facility] with worsening shortness of breath. He is morbidly obese with BMI over 50. He is not complaint with PAP therapy at home. His ABG showed hypercapnic respiratory failure, and he failed BiPAP therapy, was intubated and is ventilating better with this assistance. he is sedated, so no additional history is available. He is easy to oxygenate Review of Systems Review of Systems: ROS unobtainable: Yes unobtainable due to endotracheal tube PMFSH Past Medical History Medical History Anxiety and depression (~2017) Borderline diabetes Hemoglobin A1c in 2019 was 6.1%. Class 3 severe obesity with body mass index (BMI) of 50.0 to 59.9 in adult Essential hypertension Obstructive sleep apnea on CPAP Peripheral neuropathy Surgical History Surgical History History of appendectomy History of arthroscopy of right knee History of right inguinal hernia repair Family History Family History Father Acute myocardial infarction, Onset Age: 48 Mother Family history of malignant neoplasm, Onset Age: 61 Grandparent Family history of malignant neoplasm, Onset Age: 58 Carcinoma of colon, Onset Age: 71 Family history of renal failure, Onset Age: 65 Cerebrovascular accident, Onset Age: 68 Social History Social History Social History: The patient lives in his own home in [place], [place]. 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 He is a lifelong nonsmoker. He drinks alcohol socially and in moderation. He denies drug use. He designates his significant other, Martita Fernández, is his surrogate decision maker and he wishes to be a full code. 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
--- NOTE | 2019-10-01 15:41 | PM.IMPN ---
Progress Note: A&P Assessment and Plan (1) Acute respiratory failure with hypoxia and hypercarbia: Code(s): J96.01 - Acute respiratory failure with hypoxia; J96.02 - Acute respiratory failure with hypercapnia Status: Acute Assessment and Plan: I suspect he likely has chronic respiratory failure due to FENG/OHS overlap syndrome in addition to suspecetd pulmonary hypertension. Pulmonary embolism is unlikely given negative D-dimer. I will ask Dr. Dubois to see him in consult for recommendations and further workup. He will continue with BiPAP overnight, and we will repeat ABG to ensure hypercarbia is improving. 10/01/19 15:41 Patient is a 53-year-old morbidly obese male with history of hypertension obstructive sleep apnea on CPAP he decides knees [facility] initially he presented outside facility complaint of shortness of breath and symptoms were progressive getting worse based slight exertion he had difficulty catching his breath patient was evaluated the [place] emergency department and was found to have hypercapnic hypoxic respiratory failure he was transferred to and sent Hospital he was placed on BiPAP and monitored however on BiPAP symptoms were not improved repeat ABG showed worsening CO2 and confusion at that time was decided to intubate the patient by the tax expert, patient is on vent, been tested for COVID-19 2 times and has been negative, most likely symptoms are due to hyperventilation due to morbid obesity and possibly underlining pulmonary hypertension pulmonary edema as well as pneumonia (2) Obstructive sleep apnea on CPAP: Code(s): G47.33 - Obstructive sleep apnea (adult) (pediatric); Z99.89 - Dependence on other enabling machines and devices Status: Acute Assessment and Plan: As above, he will be on BiPAP overnight. Depending on workup, he may very well need BiPAP at nighttime. Currently is on vent seen by Dr. Dubois (3) Morbid obesity: Code(s): E66.01 - Morbid (severe) obesity due to excess calories Status: Acute Assessment and Plan: Weight loss is imperative. We did speak briefly regarding healthier lifestyle choices. He seems motivated and would benefit from a dietitian consult. (4) Essential hypertension: Code(s): I10 - Essential (primary) hypertension Status: Acute Assessment and Plan: Blood pressures are not at goal, running between the 130s to 170s systolic. He was taken off hydrochlorothiazide couple of weeks ago due to mild hyponatremia on routine labs. Continue lisinopril and consider addition of other antihypertensives after trending blood pressures. (5) Anxiety and depression: Onset Date: ~2016 Code(s): F41.9 - Anxiety disorder, unspecified; F32.9 - Major depressive disorder, single episode, unspecified Status: Acute Assessment and Plan: No acute issues. Continue sertraline. (6) Chest pain: Qualifiers: Chest pain type: unspecified Qualified Code(s): R07.9 - Chest pain, unspecified Code(s): R07.9 - Chest pain, unspecified Status: Inactive Assessment and Plan: Seems to be related more so to work of breathing, but he certainly has risk factors. Will trend troponins and obtain echocardiogram. Time Spent With Patient Time with patient: 15 - 25 minutes Subjective Date/time seen: 10/01/19 15:41 Patient is a 53-year-old morbidly obese male with history of hypertension obstructive sleep apnea on CPAP he decides knees [facility] initially he presented outside facility complaint of shortness of breath and symptoms were progressive getting w
[2019-10-01 19:49] LABS: Glucose Point of Care 164 (65-105)
--- NOTE | 2019-10-01 21:38 | ECHO_ITS ---
Patient Info Name: Justo aHncock Age: 53 years : 1965 Gender: Male Ht: 71 in Wt: 379 lbs BSA: 3.03 m2 HR: 87 bpm BP: 144 / 84 mmHg Technical Quality: Fair Exam Date: 10/01/2019 8:21 AM Exam Location: [facility] Pulmonary Patient Status: Inpatient Admit Date: 09/30/2019 Staff Ordering Physician: Brooke Wills PA-C Rope Making Machine Operator: Rafita Castro RDCS, RT Attending Provider: Russ Lyons MD Referring Physician: Johann GRAHAM; Exam Type: CA echo doppler color flow Study Info Indications I11.0 - Hypertensive heart disease with heart failure Complete two-dimensional, color flow and Doppler transthoracic echocardiogram is performed. Summary 1. Left ventricular chamber dimension is mildly enlarged. 2. Left ventricular systolic function is normal, estimated at 60-65%. 3. There is moderately increased left ventricular wall thickness. 4. The left ventricular diastolic function is grade I diastolic dysfunction. 5. E/e' 14 is mildy elevated. 6. Left atrial chamber dimension is moderately enlarged. 7. Dilated inferior vena cava with <50% collapse upon inspiration consistent with significantly elevated right atrial pressure, 15 mmHg. Left Ventricle E/e' 14 is mildy elevated. Left ventricular chamber dimension is mildly enlarged. Left ventricular systolic function is normal, estimated at 60-65%. There is moderately increased left ventricular wall thickness. The left ventricular diastolic function is grade I diastolic dysfunction. Right Ventricle Right ventricular systolic function is normal based on TAPSE 1.8 cm. Right ventricular chamber dimension is not well visualized. Left Atria Left atrial chamber dimension is moderately enlarged. Right Atria Right atrial chamber dimension is not well visualized. Aortic Valve The aortic valve is probable trileaflet. There is no aortic valve stenosis. There is no aortic valve regurgitation. Pulmonic Valve There is no pulmonic regurgitation. Mitral Valve There is no mitral valve stenosis. There is no mitral valve regurgitation. Tricuspid Valve There is no tricuspid valve regurgitation. Pericardium/Pleural There is no pericardial effusion. Inferior Vena Cava Dilated inferior vena cava with <50% collapse upon inspiration consistent with significantly elevated right atrial pressure, 15 mmHg. Aorta The aortic root size at the sinus of Valsalva is normal. Left Ventricular Outflow Tract Name Value Normal LVOT 2D LVOT Diameter 2.0 cm LVOT Doppler LVOT Peak Gradient 5 mmHg LVOT Mean Gradient 3 mmHg LVOT VTI 22 cm LVOT VTI/AV VTI Ratio 1.0 LVOT Stroke Volume 68 ml LVOT CO 6.0 l/min LVOT CI 2.0 l/min/m2 Mitral Valve Name Value Normal MV Doppler
[2019-10-02] VITALS (24 sets, daily range): BP systolic 92–133; BP diastolic 53–75; PULSE 52–96; RESP 20; TEMP 36.8–38.1; O2SAT 92–100
[2019-10-02 00:20] LABS: Glucose Point of Care 166 (65-105)
[2019-10-02] MEDS: PROPOFOL IV EMULSION 100 ML 51.6 MG IV CONT ×5 (01:33→09:56)
[2019-10-02 04:13] LABS: Alveolar/Arterial O2 Gradient 159.1 mmHg; Base Excess ABG 11.5 mEq/l (+/-2.0); Carboxyhemoglobin 0.6 % THb (0-2.0); Fractional Inspired Oxygen 40 %; Methemoglobin ABG 0.2 %THb (0-1.5); Oxygen Content ABG 16.7 %vol (16.0-22.0); Oxygen Saturation ABG 93.8 % (95.0-100.0); Oxyhemoglobin 91.9 % THb (90.0-100.0); PCO2 ABG 52.3 mmHg (35.0-45.0); PO2 FiO2 Ratio Arterial Blood 1.65 %; Reduced Hemoglobin 7.3 %THb (0-5.0); Total Hemoglobin 12.9 g/dL (12.0-18.0); pH ABG 7.468 (7.350-7.450)
[2019-10-02 04:15] LABS: Arterial Blood Gas Vent Mode CMV; Arterial Blood Gas Ventilator rate 20 /MIN; Device VENTILATOR; Modified Allen's Test Unable to perform; Site Drawn RIGHT RADIAL
[2019-10-02 04:16] LABS: Arterial Blood Gas PEEP 5 cmH2O; Arterial Blood Gas Tidal Volume 450 ml
[2019-10-02 05:26] LABS: Alanine Aminotransferase 20 U/L (4-50); Albumin Level 3.9 g/dL (3.5-5.1); Alkaline Phosphatase 84 U/L (38-126); Aspartate Amino Transferase 47 U/L (17-59); Bilirubin,Total 1.1 mg/dL (0.2-1.3); Blood Urea Nitrogen 18 mg/dL (9-20); Calcium 8.7 mg/dL (8.4-10.2); Carbon Dioxide > 40 mmol/L (22-30); Chloride 91 mmol/L (98-107); Estimated CRCL calculation 169 ml/min; Estimated Glomerular Filt Rate > 60; Glucose 102 mg/dL (75-110); Potassium 3.4 mmol/L (3.4-5.0); Sodium 134 mmol/L (137-145)
[2019-10-02 05:30] LABS: Hematocrit 39.4 % (42.0-52.0); Hemoglobin 12.2 g/dL (14.0-18.0); Mean Corpuscular Hemoglobin 27.6 pg (26-34); Mean Corpuscular Volume 89.1 fl (80-100); Mean Platelet Volume 9.7 fl (7.4-10.4); Platelet Count Result 169 k/mm3 (150-375); Red Blood Count 4.42 M/mm3 (4.6-6.20); Red Cell Distribution Width 16.6 % (11.5-14.5); White Blood Count 7.1 K/mm3 (4.5-10.0)
[2019-10-02 05:44] LABS: Glucose Point of Care 155 (65-105)
--- NOTE | 2019-10-02 07:00 | WPDINTPN ---
Progress Note: A&P Assessment and Plan (1) Acute and chronic respiratory failure: Code(s): J96.20 - Acute and chronic respiratory failure, unspecified whether with hypoxia or hypercapnia Status: Acute Assessment and Plan: Acute on chronic Respiratory failure secondary to obesity hypoventilation syndrome and suspected pulmonary hypertension, pulmonary edema and atelectasis Continue full mechanical ventilation support to prevent hypoxemia/hypercarbia and end organ damage. ABG and PCXR reviewed and will repeat in am. Decrease tidal volume to 400 Low tidal volume ventilation strategy to prevent volutrauma Bronchodilators continue IV Lasix as per admitting physician's note patient has been tested for COVID-19 twice in recent days and was negative weaning trial today and if successful will try to extubate the patient (2) CHF (congestive heart failure): Code(s): I50.9 - Heart failure, unspecified Status: Acute Assessment and Plan: diastolic congestive heart failure ECHO Summary 1. Left ventricular chamber dimension is mildly enlarged. 2. Left ventricular systolic function is normal, estimated at 60-65%. 3. There is moderately increased left ventricular wall thickness. 4. The left ventricular diastolic function is grade I diastolic dysfunction. 5. E/e' 14 is mildy elevated. 6. Left atrial chamber dimension is moderately enlarged. 7. Dilated inferior vena cava with <50% collapse upon inspiration consistent with significantly elevated right atrial pressure, 15 mmHg. Lasix IV for volume overload (3) Bilateral lower extremity edema: Code(s): R60.0 - Localized edema Status: Acute Assessment and Plan: lower extremity Dopplers were negative for DVT continue Lasix (4) Benign essential hypertension: Code(s): I10 - Essential (primary) hypertension Status: Acute Assessment and Plan: monitor blood pressure as it is in controlled range at this time and treat accordingly (5) Hypokalemia: Code(s): E87.6 - Hypokalemia Status: Acute Assessment and Plan: replaced today with per 2 potassium chloride (6) Obstructive sleep apnea on CPAP: Code(s): G47.33 - Obstructive sleep apnea (adult) (pediatric); Z99.89 - Dependence on other enabling machines and devices Status: Acute Assessment and Plan: currently intubated. will need BiPAP/CPAP once extubated (7) Morbid obesity: Code(s): E66.01 - Morbid (severe) obesity due to excess calories Status: Acute Assessment and Plan: no intervention at this time Additional Plan DVT prophylaxis - Lovenox Stress ulcer prophylaxis - Pepcid Nutrition - continue Tube Feeds Code Status - Full Code Total Critical Care Time - 30 minutes Due to a high probability of clinically significant, life threatening deterioration, the patient required my highest level of preparedness to intervene emergently and I personally spent this critical care time directly and personally managing the patient. This critical care time included obtaining a history; examining the patient; pulse oximetry; ordering and review of studies; arranging urgent treatment with development of a management plan; evaluation of patient's response to treatment; frequent reassessment; and discussions with other providers. It was exclusive of separately billable procedures and treating other patients and teaching time. Please see Assessment and Plan section and the rest of the note for further information on patient assessment and treatment Subjective Date/time seen: 10/02/19 0700 Overnight events reviewed Afebrile Continues to be on mechanical ventilation Vitals acceptable Review of Systems Review of Systems: ROS unobtainable: Yes unobtainable due to endotracheal tube Exam Narrative: Exam Narrative: General: Pt is sedated, intubated and on mechanical ventilation Lungs/Chest: Trachea
[2019-10-02] MEDS: POTASSIUM CHLORIDE 20 MEQ PACKET (FOR LIQUID) 40 MEQ PO (07:45)
[2019-10-02] MEDS: ASPIRIN 81 MG ENTERIC TABLET PO (07:46)
[2019-10-02] MEDS: FAMOTIDINE 20 MG TABLET PO ×2 (07:46→20:16)
[2019-10-02] MEDS: FUROSEMIDE INJ 40 MG/4 ML VIAL IV PUSH ×2 (07:46→17:48)
[2019-10-02] MEDS: ENOXAPARIN 40 MG/0.4 ML SYRINGE SUB-Q (07:46)
[2019-10-02 08:31] LABS: Glucose Point of Care 100 (65-105)
--- NOTE | 2019-10-02 10:33 | PCDIET ---
ICU Rounding Note: Patient has been tolerating Vital 1.2 at 20mL/hr goal rate. Plan for SBT today. Propofol now infusing at 31mL/hr which provides 818kcal over 24 hour period. If unable to extubate, recommend increasing Vital 1.2 to 35mL/hr. Last recorded weight is 168.1kg which is stable. Bowel Motility: No documented BM yet. Labs Reviewed: Glu (155), Na (134) Meds Noted: Albuterol, Pepcid, Fentanyl, Lasix, Precedex, Novolog, Atrovent, Propofol, KCl Additional Notes: Legs with stasis ulcers, per RN. Following daily in ICU rounds. Assessing/reassessing every Sunday/Sunday.
[2019-10-02] MEDS: PROPOFOL IV EMULSION 100 ML 31 MG IV CONT ×4 (12:14→21:37)
[2019-10-02 12:32] LABS: Glucose Point of Care 104 (65-105)
[2019-10-02] MEDS: ACETAMINOPHEN 325 MG TABLET 650 MG PO (12:45)
--- NOTE | 2019-10-02 17:01 | PM.IMPN ---
Progress Note: A&P Assessment and Plan (1) Acute respiratory failure with hypoxia and hypercarbia: Code(s): J96.01 - Acute respiratory failure with hypoxia; J96.02 - Acute respiratory failure with hypercapnia Status: Acute Assessment and Plan: Patient is a 53-year-old morbidly obese male with history of hypertension obstructive sleep apnea on CPAP he decides knees [facility] initially he presented outside facility complaint of shortness of breath and symptoms were progressive getting worse based slight exertion he had difficulty catching his breath patient was evaluated the [place] emergency department and was found to have hypercapnic hypoxic respiratory failure he was transferred to and sent Hospital he was placed on BiPAP and monitored however on BiPAP symptoms were not improved repeat ABG showed worsening CO2 and confusion at that time was decided to intubate the patient by the associate chief nurse, patient is on vent, been tested for COVID-19 2 times and has been negative, most likely symptoms are due to hyperventilation due to morbid obesity and possibly underlining pulmonary hypertension pulmonary edema as well as pneumonia. on ventilator in cu (2) Obstructive sleep apnea on CPAP: Code(s): G47.33 - Obstructive sleep apnea (adult) (pediatric); Z99.89 - Dependence on other enabling machines and devices Status: Acute Assessment and Plan: Currently is on vent seen by Dr. Dubois and icu attending (3) Morbid obesity: Code(s): E66.01 - Morbid (severe) obesity due to excess calories Status: Chronic Assessment and Plan: . (4) Essential hypertension: Code(s): I10 - Essential (primary) hypertension Status: Acute Assessment and Plan: on ventilator on precedex. (5) Anxiety and depression: Onset Date: ~2016 Code(s): F41.9 - Anxiety disorder, unspecified; F32.9 - Major depressive disorder, single episode, unspecified Status: Acute Assessment and Plan: No acute issues. (6) Chest pain: Qualifiers: Chest pain type: unspecified Qualified Code(s): R07.9 - Chest pain, unspecified Code(s): R07.9 - Chest pain, unspecified Status: Inactive Assessment and Plan: Subjective Date/time seen: 10/02/19 17:01 Interval history: 53-year-old morbidly obese male with history of hypertension obstructive sleep apnea on CPAP he decides knees [facility] initially he presented outside facility complaint of shortness of breath and symptoms were progressive getting worse based slight exertion he had difficulty catching his breath patient was evaluated the [place] emergency department and was found to have hypercapnic hypoxic respiratory failure he was transferred to and sent Hospital he was placed on BiPAP and monitored however on BiPAP symptoms were not improved repeat ABG showed worsening CO2 and confusion at that time was decided to intubate the patient by the associate chief nurse, patient is on vent, been tested for COVID-19 2 times and has been negative, most likely symptoms are due to hyperventilation due to morbid obesity and possibly underlining pulmonary hypertension pulmonary edema as well as pneumonia. Much the same as yesterday on ventilator in icu. Discussed case with icu attending Review of Systems Review of Systems: ROS unobtainable: Yes unobtainable due to endotracheal tube Exam Narrative: Exam Narrative: On ventilator in icu Objective Data Vital Signs Vital Signs: Vital Signs - 24 hr 10/01/19 17:32 10/01/19 18:00 10/01/19 19:09 Temperature Pulse Rate 78 79 76 Respiratory R
[2019-10-02 18:06] LABS: Glucose Point of Care 99 (65-105)
[2019-10-02 23:56] LABS: Glucose Point of Care 127 (65-105)
[2019-10-03] VITALS (20 sets, daily range): BP systolic 96–152; BP diastolic 53–70; PULSE 52–77; RESP 14–21; TEMP 36.8–37.4; O2SAT 91–97
[2019-10-03] MEDS: PROPOFOL IV EMULSION 100 ML 31 MG IV CONT ×2 (00:32→03:27)
[2019-10-03 04:20] LABS: Alveolar/Arterial O2 Gradient 248.3 mmHg; Base Excess ABG 9.2 mEq/l (+/-2.0); Carboxyhemoglobin 0.8 % THb (0-2.0); Fractional Inspired Oxygen 50 %; HCO3 ABG 34.8 mEq/l (22.0-26.0); Methemoglobin ABG 0.2 %THb (0-1.5); Oxygen Content ABG 15.6 %vol (16.0-22.0); Oxyhemoglobin 84.8 % THb (90.0-100.0); PCO2 ABG 51.5 mmHg (35.0-45.0); PO2 ABG 50.3 mmHg (80.0-100.0); PO2 FiO2 Ratio Arterial Blood 1.01 %; Reduced Hemoglobin 14.2 %THb (0-5.0); Total Hemoglobin 13.1 g/dL (12.0-18.0); pH ABG 7.448 (7.350-7.450)
[2019-10-03 04:21] LABS: Device VENTILATOR; Modified Allen's Test Pass; Oxygen Saturation ABG 86.6 % (95.0-100.0); Site Drawn LEFT RADIAL
[2019-10-03 04:22] LABS: Arterial Blood Gas PEEP 5 cmH2O; Arterial Blood Gas Tidal Volume 400 ml; Arterial Blood Gas Vent Mode CMV; Arterial Blood Gas Ventilator rate 20 /MIN
[2019-10-03 04:55] LABS: Hematocrit 39.1 % (42.0-52.0); Hemoglobin 12.1 g/dL (14.0-18.0); Mean Corpuscular HGB Conc 30.9 g/dl (32-36); Mean Corpuscular Hemoglobin 27.9 pg (26-34); Mean Corpuscular Volume 90.1 fl (80-100); Mean Platelet Volume 10.4 fl (7.4-10.4); Platelet Count Result 184 k/mm3 (150-375); Red Blood Count 4.34 M/mm3 (4.6-6.20); Red Cell Distribution Width 16.8 % (11.5-14.5); White Blood Count 8.5 K/mm3 (4.5-10.0)
[2019-10-03 05:13] LABS: Alanine Aminotransferase 33 U/L (4-50); Albumin Level 3.9 g/dL (3.5-5.1); Alkaline Phosphatase 76 U/L (38-126); Aspartate Amino Transferase 145 U/L (17-59); Blood Urea Nitrogen 30 mg/dL (9-20); Calcium 8.7 mg/dL (8.4-10.2); Carbon Dioxide 35 mmol/L (22-30); Chloride 90 mmol/L (98-107); Estimated CRCL calculation 95 ml/min; Estimated Glomerular Filt Rate 58; Glucose 114 mg/dL (75-110); Magnesium 2.1 mg/dL (1.6-2.3); Potassium 3.9 mmol/L (3.4-5.0); Sodium 132 mmol/L (137-145)
[2019-10-03 05:49] LABS: Glucose Point of Care 111 (65-105)
[2019-10-03] MEDS: PROPOFOL IV EMULSION 100 ML 20.7 MG IV CONT ×2 (06:11→20:15)
[2019-10-03] MEDS: FAMOTIDINE 20 MG TABLET PO ×2 (08:20→21:45)
[2019-10-03] MEDS: ASPIRIN 81 MG ENTERIC TABLET PO (08:20)
[2019-10-03] MEDS: ENOXAPARIN 40 MG/0.4 ML SYRINGE SUB-Q (08:20)
--- NOTE | 2019-10-03 10:28 | PCDIET ---
Nutrition Follow-Up Complete: Nutrition Diagnosis: Inadequate oral intake related to oral intubation as evidenced by NPO status. Nutrition Goal: Patient to meet estimated nutritional needs. Goal in progress. Tube feedings on hold for SBT. MD ordered to increase tube feeding rate to 65mL/hr if unable to extubate. Last recorded weight is 168.1 kg which is stable. Bowel Motility: No documented BM. Labs Reviewed: Glu (114), Na (132) Meds Noted: Albuterol, Precedex, Pepcid, Fentanyl, Novolog, Atrovent Additional Notes: No skin breakdown documented. Will continue to monitor with same goal. Nutrition Monitoring and Evaluation: Follow up every Sunday/Sunday.
[2019-10-03 11:58] LABS: Glucose Point of Care 112 (65-105)
--- NOTE | 2019-10-03 12:12 | WPDINTPN ---
Progress Note: A&P Assessment and Plan (1) Acute and chronic respiratory failure: Code(s): J96.20 - Acute and chronic respiratory failure, unspecified whether with hypoxia or hypercapnia Status: Acute Assessment and Plan: Acute on chronic Respiratory failure secondary to obesity hypoventilation syndrome and suspected pulmonary hypertension, pulmonary edema and atelectasis - Continue full mechanical ventilation support to prevent hypoxemia/hypercarbia and end organ damage. - ABG and PCXR reviewed , Wean FiO2 down to 40%. - continueBronchodilators - hold diuretics as creatinine has increased. - as per admitting physician's note patient has been tested for COVID-19 twice in recent days and was negative - Placed patient on SBT and will evaluate for extubation (2) CHF (congestive heart failure): Code(s): I50.9 - Heart failure, unspecified Status: Acute Assessment and Plan: diastolic congestive heart failure ECHO Summary 1. Left ventricular chamber dimension is mildly enlarged. 2. Left ventricular systolic function is normal, estimated at 60-65%. 3. There is moderately increased left ventricular wall thickness. 4. The left ventricular diastolic function is grade I diastolic dysfunction. 5. E/e' 14 is mildy elevated. 6. Left atrial chamber dimension is moderately enlarged. 7. Dilated inferior vena cava with <50% collapse upon inspiration consistent with significantly elevated right atrial pressure, 15 mmHg. patient diuresed well with Lasix, creatinine has increased, will hold Lasix for today (3) Bilateral lower extremity edema: Code(s): R60.0 - Localized edema Status: Acute Assessment and Plan: lower extremity Dopplers were negative for DVT (4) Benign essential hypertension: Code(s): I10 - Essential (primary) hypertension Status: Acute Assessment and Plan: monitor blood pressure as it is in controlled range at this time and treat accordingly (5) Hypokalemia: Code(s): E87.6 - Hypokalemia Status: Acute Assessment and Plan: resolved (6) Obstructive sleep apnea on CPAP: Code(s): G47.33 - Obstructive sleep apnea (adult) (pediatric); Z99.89 - Dependence on other enabling machines and devices Status: Acute Assessment and Plan: currently intubated. will need BiPAP/CPAP once extubated (7) Morbid obesity: Code(s): E66.01 - Morbid (severe) obesity due to excess calories Status: Chronic Assessment and Plan: no intervention at this time Additional Plan DVT prophylaxis - Lovenox Stress ulcer prophylaxis - Pepcid Nutrition - tube feeds currently on hold for possible extubation Code Status - Full Code Total Critical Care Time - 34 minutes Due to a high probability of clinically significant, life threatening deterioration, the patient required my highest level of preparedness to intervene emergently and I personally spent this critical care time directly and personally managing the patient. This critical care time included obtaining a history; examining the patient; pulse oximetry; ordering and review of studies; arranging urgent treatment with development of a management plan; evaluation of patient's response to treatment; frequent reassessment; and discussions with other providers. It was exclusive of separately billable procedures and treating other patients and teaching time. Please see Assessment and Plan section and the rest of the note for further information on patient assessment and treatment Subjective Date/time seen: REASON FOR CONSuLT: acute on chronic respiratory failure, CHF - intubated on 10/01/2019 10/03/2019: Patient seen and examined the ICU. Remains intubated, % FiO2, peep of 5. Adequate urine output, T-max 100.6? F. Hemodynamically stable. Patient is on propofol 15 mcg and Precedex 0.2 mcg infusions. Patient is awake, alert, writing notes.
[2019-10-03 12:37] LABS: Alveolar/Arterial O2 Gradient 139.1 mmHg; Carboxyhemoglobin 0.7 % THb (0-2.0); Fractional Inspired Oxygen 40 %; HCO3 ABG 34.7 mEq/l (22.0-26.0); Methemoglobin ABG 0.3 %THb (0-1.5); Oxygen Content ABG 16.9 %vol (16.0-22.0); Oxygen Saturation ABG 93.2 % (95.0-100.0); Oxyhemoglobin 91.3 % THb (90.0-100.0); PO2 ABG 71.9 mmHg (80.0-100.0); Reduced Hemoglobin 7.7 %THb (0-5.0); Total Hemoglobin 13.1 g/dL (12.0-18.0); pH ABG 7.349 (7.350-7.450)
[2019-10-03 12:38] LABS: Device VENTILATOR; Modified Allen's Test Pass; PCO2 ABG 64.5 mmHg (35.0-45.0); Site Drawn RIGHT RADIAL
[2019-10-03 12:39] LABS: Arterial Blood Gas PEEP 5 cmH2O; Arterial Blood Gas Pressure Support 8 cmH2O; Arterial Blood Gas Vent Mode SPONTANEOUS
[2019-10-03] MEDS: PROPOFOL IV EMULSION 100 ML 15.5 MG IV CONT (15:16)
--- NOTE | 2019-10-03 15:36 | PM.IMPN ---
Progress Note: A&P Assessment and Plan (1) Acute respiratory failure with hypoxia and hypercarbia: Code(s): J96.01 - Acute respiratory failure with hypoxia; J96.02 - Acute respiratory failure with hypercapnia Status: Acute Assessment and Plan: Patient is a 53-year-old morbidly obese male with history of hypertension obstructive sleep apnea on CPAP he decides knees [facility] initially he presented outside facility complaint of shortness of breath and symptoms were progressive getting worse based slight exertion he had difficulty catching his breath patient was evaluated the [place] emergency department and was found to have hypercapnic hypoxic respiratory failure he was transferred to and sent Hospital he was placed on BiPAP and monitored however on BiPAP symptoms were not improved repeat ABG showed worsening CO2 and confusion at that time was decided to intubate the patient by the dry cure worker, patient is on vent, been tested for COVID-19 2 times and has been negative, most likely symptoms are due to hyperventilation due to morbid obesity and possibly underlining pulmonary hypertension pulmonary edema as well as pneumonia. On ventilator in icu Currently being treated with iv lasix for CHF excerbation (2) Obstructive sleep apnea on CPAP: Code(s): G47.33 - Obstructive sleep apnea (adult) (pediatric); Z99.89 - Dependence on other enabling machines and devices Status: Acute Assessment and Plan: Currently is on vent seen by Dr. Dubois and icu attending (3) Morbid obesity: Code(s): E66.01 - Morbid (severe) obesity due to excess calories Status: Chronic Assessment and Plan: .Chronic problem (4) Essential hypertension: Code(s): I10 - Essential (primary) hypertension Status: Acute Assessment and Plan: on ventilator on precedex. (5) Anxiety and depression: Onset Date: ~2016 Code(s): F41.9 - Anxiety disorder, unspecified; F32.9 - Major depressive disorder, single episode, unspecified Status: Acute Assessment and Plan: No acute issues. (6) Chest pain: Qualifiers: Chest pain type: unspecified Qualified Code(s): R07.9 - Chest pain, unspecified Code(s): R07.9 - Chest pain, unspecified Status: Inactive Assessment and Plan: Resolved Subjective Date/time seen: 10/03/19 15:36 Interval history: 53-year-old morbidly obese male with history of hypertension obstructive sleep apnea on CPAP he decides knees [facility] initially he presented outside facility complaint of shortness of breath and symptoms were progressive getting worse based slight exertion he had difficulty catching his breath patient was evaluated the [place] emergency department and was found to have hypercapnic hypoxic respiratory failure he was transferred to and sent Hospital he was placed on BiPAP and monitored however on BiPAP symptoms were not improved repeat ABG showed worsening CO2 and confusion at that time was decided to intubate the patient by the dry cure worker, patient is on vent, been tested for COVID-19 2 times and has been negative, most likely symptoms are due to hyperventilation due to morbid obesity and possibly underlining pulmonary hypertension pulmonary edema as well as pneumonia. Pt is on ventilator in icu. Review of Systems Review of Systems: ROS unobtainable: Yes unobtainable due to endotracheal tube Exam Narrative: Exam Narrative: On ventilator in icu Const: General: no acute distress HENMT: Other: ET tube in place Eyes: Sclera: sclerae normal Neck: Neck: supple Resp: Other:
--- NOTE | 2019-10-03 15:43 | PC.NURSE ---
Per patient request I called and left a message with Ishaan at patient's work to notified them patient has been in the ICU and is unable to call. Patient is intubated but is able to write messages.
--- NOTE | 2019-10-03 16:00 | PC.NURSE ---
Patient requested I try another number for his work. I called [phone] to notify them that patient is in ICU and unable to call or speak as he is intubated at this time per patient request.
[2019-10-03 17:39] LABS: Glucose Point of Care 104 (65-105)
[2019-10-03 23:43] LABS: Glucose Point of Care 117 (65-105)
[2019-10-04] VITALS (21 sets, daily range): BP systolic 96–161; BP diastolic 52–92; PULSE 54–78; RESP 13–20; TEMP 36.7–37.5; O2SAT 91–100
[2019-10-04] MEDS: PROPOFOL IV EMULSION 100 ML 36.1 MG IV CONT (00:04)
[2019-10-04] MEDS: PROPOFOL IV EMULSION 100 ML 31 MG IV CONT ×3 (02:54→11:09)
[2019-10-04 03:41] LABS: Alveolar/Arterial O2 Gradient 190.9 mmHg; Base Excess ABG 4.6 mEq/l (+/-2.0); Carboxyhemoglobin 0.8 % THb (0-2.0); Fractional Inspired Oxygen 45 %; HCO3 ABG 29.9 mEq/l (22.0-26.0); Methemoglobin ABG 0.2 %THb (0-1.5); Oxygen Content ABG 18.3 %vol (16.0-22.0); Oxygen Saturation ABG 95.4 % (95.0-100.0); Oxyhemoglobin 93.6 % THb (90.0-100.0); PO2 ABG 76.5 mmHg (80.0-100.0); Reduced Hemoglobin 5.4 %THb (0-5.0); Total Hemoglobin 13.9 g/dL (12.0-18.0); pH ABG 7.422 (7.350-7.450)
[2019-10-04 03:42] LABS: Device VENTILATOR; Modified Allen's Test Pass; Site Drawn RIGHT RADIAL
[2019-10-04 03:43] LABS: Arterial Blood Gas PEEP 5 cmH2O; Arterial Blood Gas Pressure Support 50 cmH2O; Arterial Blood Gas Vent Mode ASV
[2019-10-04 04:21] LABS: Basophils Percent Auto 0.3 % (0.2-1.2); Eosinophils Absolute Auto 0.5 K/mm3 (0-0.3); Eosinophils Percent Auto 5.1 % (0-4.4); Hematocrit 37.4 % (42.0-52.0); Hemoglobin 11.6 g/dL (14.0-18.0); Lymphocytes Absolute Auto 0.56 K/mm3 (0.9-3.2); Lymphocytes Percent Auto 5.7 % (18.3-44.2); Mean Corpuscular Volume 90.3 fl (80-100); Mean Platelet Volume 10.3 fl (7.4-10.4); Monocytes Absolute Auto 0.8 K/mm3 (0.1-0.6); Neutrophils Absolute Auto 7.9 K/mm3 (1.3-6.7); Neutrophils Percent Auto 79.9 % (45.5-73.1); Platelet Count Result 190 k/mm3 (150-375); Red Blood Count 4.14 M/mm3 (4.6-6.20); Red Cell Distribution Width 16.4 % (11.5-14.5); White Blood Count 9.8 K/mm3 (4.5-10.0)
[2019-10-04 06:43] LABS: Glucose Point of Care 126 (65-105)
[2019-10-04 07:59] LABS: Alanine Aminotransferase 63 U/L (4-50); Albumin Level 3.5 g/dL (3.5-5.1); Alkaline Phosphatase 112 U/L (38-126); Aspartate Amino Transferase 293 U/L (17-59); Bilirubin,Total 0.8 mg/dL (0.2-1.3); Blood Urea Nitrogen 38 mg/dL (9-20); Calcium 8.3 mg/dL (8.4-10.2); Carbon Dioxide 34 mmol/L (22-30); Chloride 91 mmol/L (98-107); Estimated CRCL calculation 135 ml/min; Estimated Glomerular Filt Rate > 60; Glucose 139 mg/dL (75-110); Magnesium 2.6 mg/dL (1.6-2.3); Potassium 3.8 mmol/L (3.4-5.0); Sodium 133 mmol/L (137-145)
[2019-10-04] MEDS: FAMOTIDINE 20 MG TABLET PO ×2 (09:13→21:00)
[2019-10-04] MEDS: ASPIRIN 81 MG ENTERIC TABLET PO (09:13)
[2019-10-04] MEDS: ENOXAPARIN 40 MG/0.4 ML SYRINGE SUB-Q (09:14)
[2019-10-04 09:56] LABS: Hepatitis B Surface Antigen Negative (Negative)
[2019-10-04 10:02] LABS: HAV RESULT Negative (Negative); Hepatitis B Core IgM Result Negative (Negative)
[2019-10-04 10:13] LABS: Hepatitis C Virus Antibody Negative (Negative)
[2019-10-04 10:21] LABS: Creatine Kinase 5822 U/L (55-170)
[2019-10-04 10:56] LABS: Alveolar/Arterial O2 Gradient 178.4 mmHg; Base Excess ABG 9.7 mEq/l (+/-2.0); Fractional Inspired Oxygen 50 %; HCO3 ABG 39.3 mEq/l (22.0-26.0); Oxygen Content ABG 17.7 %vol (16.0-22.0); Oxygen Saturation ABG 95.2 % (95.0-100.0); Oxyhemoglobin 94.4 % THb (90.0-100.0); PO2 ABG 86.9 mmHg (80.0-100.0); PO2 FiO2 Ratio Arterial Blood 1.74 %; Total Hemoglobin 13.3 g/dL (12.0-18.0); pH ABG 7.303 (7.350-7.450)
[2019-10-04 10:57] LABS: Device VENTILATOR; Modified Allen's Test Pass; PCO2 ABG 81.1 mmHg (35.0-45.0); Site Drawn RIGHT RADIAL
[2019-10-04 10:58] LABS: Arterial Blood Gas PEEP 5 cmH2O; Arterial Blood Gas Pressure Support 10 cmH2O; Arterial Blood Gas Vent Mode SPONTANEOUS
--- NOTE | 2019-10-04 12:01 | WPDINTPN ---
Progress Note: A&P Assessment and Plan (1) Acute and chronic respiratory failure: Qualifiers: Respiratory failure complication: hypercapnia Qualified Code(s): J96.22 - Acute and chronic respiratory failure with hypercapnia Code(s): J96.20 - Acute and chronic respiratory failure, unspecified whether with hypoxia or hypercapnia Status: Acute Assessment and Plan: Acute on chronic Respiratory failure secondary to obesity hypoventilation syndrome and suspected pulmonary hypertension, pulmonary edema and atelectasis, pneumonia - Continue full mechanical ventilation support to prevent hypoxemia/hypercarbia and end organ damage. - ABG and PCXR reviewed , Wean FiO2 down to 40%. - continue Bronchodilators. - as per admitting physician's note patient has been tested for COVID-19 twice in recent days and was negative - patient feels extubation yesterday on 10/02, this morning patient was placed on SBT with pressure support ventilation of 10/5, ABG showed hypercapnia. Placed patient back on CMV mode of ventilation, discussed with patient was initially very agitated and not point to listen and 1 in the PEG tube to be out. It explained to him the possibly of a re-intubation on tracheostomy patient calmed down (2) Rhabdomyolysis: Code(s): M62.82 - Rhabdomyolysis Status: Acute Assessment and Plan: patient with cola colored urine, elevated CK levels - patient in negative fluid balance, discussed with Nephrology, will give IV fluid bolus and placed on maintenance IV fluids (3) CHF (congestive heart failure): Code(s): I50.9 - Heart failure, unspecified Status: Acute Assessment and Plan: diastolic congestive heart failure ECHO Summary 1. Left ventricular chamber dimension is mildly enlarged. 2. Left ventricular systolic function is normal, estimated at 60-65%. 3. There is moderately increased left ventricular wall thickness. 4. The left ventricular diastolic function is grade I diastolic dysfunction. 5. E/e' 14 is mildy elevated. 6. Left atrial chamber dimension is moderately enlarged. 7. Dilated inferior vena cava with <50% collapse upon inspiration consistent with significantly elevated right atrial pressure, 15 mmHg. diuresis being held as patient may be developing rhabdomyolysis (4) Bilateral lower extremity edema: Code(s): R60.0 - Localized edema Status: Acute Assessment and Plan: lower extremity Dopplers were negative for DVT (5) Benign essential hypertension: Code(s): I10 - Essential (primary) hypertension Status: Acute Assessment and Plan: monitor blood pressure as it is in controlled range at this time and treat accordingly (6) Hypokalemia: Code(s): E87.6 - Hypokalemia Status: Acute Assessment and Plan: resolved (7) Obstructive sleep apnea on CPAP: Code(s): G47.33 - Obstructive sleep apnea (adult) (pediatric); Z99.89 - Dependence on other enabling machines and devices Status: Acute Assessment and Plan: currently intubated. will need BiPAP/CPAP once extubated (8) Morbid obesity: Code(s): E66.01 - Morbid (severe) obesity due to excess calories Status: Chronic Assessment and Plan: no intervention at this time Additional Plan DVT prophylaxis - Lovenox Stress ulcer prophylaxis - Pepcid Nutrition - tube feeds currently on hold for possible extubation Code Status - Full Code Total Critical Care Time - 34 minutes Due to a high probability of clinically significant, life threatening deterioration, the patient required my highest level of preparedness to intervene emergently and I personally spent this critical care time directly and personally managing the patient. This critical care time included obtaining a history; examining the patient; pulse oximetry; ordering and review of studies; arranging urgent treatment with development of
[2019-10-04 12:12] LABS: Glucose Point of Care 94 (65-105)
[2019-10-04 12:30] LABS: Estimated CRCL calculation 122 ml/min; Estimated Glomerular Filt Rate > 60
[2019-10-04] MEDS: LACTATED RINGERS 1,000 ML 999 ML IV CONT (12:45)
[2019-10-04] MEDS: PROPOFOL IV EMULSION 100 ML 51.6 MG IV CONT ×2 (13:19→15:29)
--- NOTE | 2019-10-04 14:24 | PM.CNNEP ---
Assessment and Plan Assessment and plan (1) Rhabdomyolysis: Code(s): M62.82 - Rhabdomyolysis Status: Acute (2) Acute and chronic respiratory failure: Qualifiers: Respiratory failure complication: hypercapnia Qualified Code(s): J96.22 - Acute and chronic respiratory failure with hypercapnia Code(s): J96.20 - Acute and chronic respiratory failure, unspecified whether with hypoxia or hypercapnia Status: Acute (3) Morbid obesity: Code(s): E66.01 - Morbid (severe) obesity due to excess calories Status: Chronic (4) Obstructive sleep apnea on CPAP: Code(s): G47.33 - Obstructive sleep apnea (adult) (pediatric); Z99.89 - Dependence on other enabling machines and devices Status: Acute (5) Essential hypertension: Code(s): I10 - Essential (primary) hypertension Status: Acute Assessment and Plan: . Additional Plan Justo has evidence of rhabdomyolysis by his elevated CPK with resultant dark colored urine. There is no mention of dark colored or coca-cola colored urine prior to or at his admission so it is unclear if his CPK was elevated prior to admission or developed since this hospitalization began. However, currently, his urine appears to be more yellow/gold in so perhaps maybe the a for mentioned dark colored urine was a transient issue separate from the aforementioned rise in his CPK. It should be noted that the patient was admitted on the assumption that he had overt volume overload/congestive heart failure and was aggressively diuresed. I do not know or think this was a particular cause to the dark colored urine or for that matter elevated CPK but I cannot deny the possibility that it was playing a role. He does not appear to be a type of medications or agents that would cause as rhabdomyolysis or dark-colored urine either. At this point, I agree with holding off on diuresis and given a trial of IV fluids to see if this both helps stabilize the a for mentioned urine discoloration as well as improve his CPK. As his renal function appears to be normal, I see no reason to use bicarb fluids at this time. I will continue to follow the patient with you while remains hospitalized and make further recommendations based on his hospital course Thank you for allowing me to participate in the care this patient I did discuss the case with Dr. Hodges by phone earlier today. History of Present Illness Reason for Consult Consult date: 10/04/19 Reason for consult: Other (Rhabdomyolysis) Chief Complaint Chief complaint: Acute Res. Failure, Chest Pain History of Present Illness Narrative: Most of the information I have obtained is from review of the electronic medical record as well as discussion with the physicians and nurses involved in his care as the patient is currently intubated and and unable to provide me with a full and complete history at this time. The patient is a 53-year-old male with a past medical history as outlined below who was directly transferred from [facility] to [facility] for further evaluation of shortness of breath and respiratory failure. Over the past month or so he reports increasing dyspnea on lesser and lesser exertion and it is to the point where he is having a difficult time catching his breath with minimal activity. He reported some confused and stated his thought process have been getting slower over the past 10 months or so. Furthermore, he has had some falling out of bed episodes when getts up to use the bathroom at nighttime which he blames on mild confusion. He is compliant with his CPAP, but states that he has gained 100 pound since his previous sleep study many years ago. He also admitted to chronic 2 pillow orthopnea, which has not changed. He does note increasing lower extremity edema over the past 1 weeks time, and then goes on to say that his hydrochlorothiazide was stopped about a week ago due to hyponatremia
--- NOTE | 2019-10-04 17:03 | PM.IMPN ---
Progress Note: A&P Assessment and Plan (1) Acute respiratory failure with hypoxia and hypercarbia: Code(s): J96.01 - Acute respiratory failure with hypoxia; J96.02 - Acute respiratory failure with hypercapnia Status: Acute Assessment and Plan: Patient is a 53-year-old morbidly obese male with history of hypertension obstructive sleep apnea on CPAP he decides knees [facility] initially he presented outside facility complaint of shortness of breath and symptoms were progressive getting worse based slight exertion he had difficulty catching his breath patient was evaluated the [place] emergency department and was found to have hypercapnic hypoxic respiratory failure he was transferred to and sent Hospital he was placed on BiPAP and monitored however on BiPAP symptoms were not improved repeat ABG showed worsening CO2 and confusion at that time was decided to intubate the patient by the wash rack operator, patient is on vent, been tested for COVID-19 2 times and has been negative, most likely symptoms are due to hyperventilation due to morbid obesity and possibly underlining pulmonary hypertension pulmonary edema as well as pneumonia. On ventilator in icu Diuresis on hold pt has developed rhabdomylosis after diuresis, continue to monitor cpk Hydrate with fluids Seen by nephrology and ICU attending Continue iv vancomycin and iv cefepime (2) Obstructive sleep apnea on CPAP: Code(s): G47.33 - Obstructive sleep apnea (adult) (pediatric); Z99.89 - Dependence on other enabling machines and devices Status: Acute Assessment and Plan: Currently is on vent (3) Morbid obesity: Code(s): E66.01 - Morbid (severe) obesity due to excess calories Status: Chronic Assessment and Plan: .Chronic problem (4) Essential hypertension: Code(s): I10 - Essential (primary) hypertension Status: Acute Assessment and Plan: on ventilator on precedex. (5) Anxiety and depression: Onset Date: ~2016 Code(s): F41.9 - Anxiety disorder, unspecified; F32.9 - Major depressive disorder, single episode, unspecified Status: Acute Assessment and Plan: No acute issues. (6) Chest pain: Qualifiers: Chest pain type: unspecified Qualified Code(s): R07.9 - Chest pain, unspecified Code(s): R07.9 - Chest pain, unspecified Status: Inactive Assessment and Plan: Resolved Subjective Date/time seen: 10/04/19 17:03 Interval history: 53-year-old morbidly obese male with history of hypertension obstructive sleep apnea on CPAP he decides knees [facility] initially he presented outside facility complaint of shortness of breath and symptoms were progressive getting worse based slight exertion he had difficulty catching his breath patient was evaluated the [place] emergency department and was found to have hypercapnic hypoxic respiratory failure he was transferred to and sent Hospital he was placed on BiPAP and monitored however on BiPAP symptoms were not improved repeat ABG showed worsening CO2 and confusion at that time was decided to intubate the patient by the wash rack operator, patient is on vent, been tested for COVID-19 2 times and has been negative, most likely symptoms are due to hyperventilation due to morbid obesity and possibly underlining pulmonary hypertension pulmonary edema as well as pneumonia. Pt is on ventilator in icu. Pt has developed rhabdomyolysis by his elevated CPK with resultant dark colored urine. Diuresis on hold. Review of Systems Review of Systems: ROS unobtainable: Yes unobtainable due to endotracheal tu
[2019-10-04] MEDS: PROPOFOL IV EMULSION 100 ML 41.3 MG IV CONT ×2 (17:04→19:22)
[2019-10-04 17:22] LABS: Glucose Point of Care 148 (65-105)
[2019-10-04] MEDS: LACTATED RINGERS 1,000 ML 75 ML IV CONT (18:17)
[2019-10-04] MEDS: PROPOFOL IV EMULSION 100 ML 46.5 MG IV CONT (22:55)
[2019-10-04 23:07] LABS: Glucose Point of Care 95 (65-105)
[2019-10-05] VITALS (24 sets, daily range): BP systolic 100–158; BP diastolic 57–72; PULSE 55–79; RESP 16–21; TEMP 36.9–37.2; O2SAT 93–100
[2019-10-05] MEDS: PROPOFOL IV EMULSION 100 ML 51.6 MG IV CONT ×12 (02:01→22:21)
[2019-10-05 03:54] LABS: Alveolar/Arterial O2 Gradient 219.7 mmHg; Base Excess ABG 9.9 mEq/l (+/-2.0); Carboxyhemoglobin 0.2 % THb (0-2.0); Device VENTILATOR; Fractional Inspired Oxygen 50 %; HCO3 ABG 36.1 mEq/l (22.0-26.0); Methemoglobin ABG 0.2 %THb (0-1.5); Modified Allen's Test Pass; Oxygen Content ABG 16.4 %vol (16.0-22.0); PCO2 ABG 55.6 mmHg (35.0-45.0); PO2 ABG 74.3 mmHg (80.0-100.0); PO2 FiO2 Ratio Arterial Blood 1.49 %; Reduced Hemoglobin 5.6 %THb (0-5.0); Site Drawn LEFT RADIAL; Total Hemoglobin 12.4 g/dL (12.0-18.0)
[2019-10-05 03:55] LABS: Arterial Blood Gas Ventilator rate 20 /MIN
[2019-10-05 03:56] LABS: Arterial Blood Gas PEEP 5 cmH2O; Arterial Blood Gas Tidal Volume 470 ml; Arterial Blood Gas Vent Mode CMV
[2019-10-05 04:20] LABS: Hematocrit 34.5 % (42.0-52.0); Hemoglobin 10.8 g/dL (14.0-18.0); Mean Corpuscular HGB Conc 31.3 g/dl (32-36); Mean Corpuscular Hemoglobin 28.2 pg (26-34); Mean Corpuscular Volume 90.1 fl (80-100); Mean Platelet Volume 10.4 fl (7.4-10.4); Platelet Count Result 192 k/mm3 (150-375); Red Blood Count 3.83 M/mm3 (4.6-6.20); Red Cell Distribution Width 16.4 % (11.5-14.5); White Blood Count 9.5 K/mm3 (4.5-10.0)
[2019-10-05 04:44] LABS: Alanine Aminotransferase 61 U/L (4-50); Albumin Level 3.5 g/dL (3.5-5.1); Alkaline Phosphatase 122 U/L (38-126); Aspartate Amino Transferase 210 U/L (17-59); Bilirubin,Total 0.7 mg/dL (0.2-1.3); Blood Urea Nitrogen 39 mg/dL (9-20); Calcium 8.3 mg/dL (8.4-10.2); Carbon Dioxide 37 mmol/L (22-30); Chloride 88 mmol/L (98-107); Estimated CRCL calculation 147 ml/min; Estimated Glomerular Filt Rate > 60; Glucose 156 mg/dL (75-110); Magnesium 2.5 mg/dL (1.6-2.3); Potassium 3.3 mmol/L (3.4-5.0); Sodium 130 mmol/L (137-145)
[2019-10-05] MEDS: ASPIRIN 81 MG ENTERIC TABLET PO (08:02)
[2019-10-05] MEDS: ENOXAPARIN 40 MG/0.4 ML SYRINGE SUB-Q (08:02)
[2019-10-05] MEDS: FAMOTIDINE 20 MG TABLET PO ×2 (08:02→20:36)
[2019-10-05 09:09] LABS: Creatine Kinase 2774 U/L (55-170)
[2019-10-05] MEDS: DORNASE ALFA INH SOLN 1 MG/ML 2.5 ML AMP 2.5 MG INHALATION ×2 (09:09→20:26)
[2019-10-05] MEDS: POTASSIUM CHLORIDE 20 MEQ PACKET (FOR LIQUID) 40 MEQ FEED TUBE (09:11)
[2019-10-05] MEDS: MIDAZOLAM HCL 2 MG/2 ML VIAL IV PUSH ×4 (09:11→19:46)
--- NOTE | 2019-10-05 10:19 | PCDIET ---
Redness noted to bilateral extremities, abdomen. Dr. Man notified and he assessed patient skin & believes the redness is related to Vancomycin. Dr. Hodges advised to infuse next dose at 125 ml/hr. Will continue to monitor closely.
--- NOTE | 2019-10-05 11:06 | WPDINTPN ---
Progress Note: A&P Assessment and Plan (1) Acute and chronic respiratory failure: Qualifiers: Respiratory failure complication: hypercapnia Qualified Code(s): J96.22 - Acute and chronic respiratory failure with hypercapnia Code(s): J96.20 - Acute and chronic respiratory failure, unspecified whether with hypoxia or hypercapnia Status: Acute Assessment and Plan: Acute on chronic Respiratory failure secondary to obesity hypoventilation syndrome and suspected pulmonary hypertension, pulmonary edema and atelectasis, pneumonia - Continue full mechanical ventilation support to prevent hypoxemia/hypercarbia and end organ damage. - ABG and PCXR reviewed , patient on 50% FiO2, increased peep to 8 and time volume to 470.. - continue Bronchodilators. - as per admitting physician's note patient has been tested for COVID-19 twice in recent days and was negative - patient Failed extubation yesterday on 10/02 and 10/03, ABG showed hypercapnia, also patient has had thick profuse secretions. was initially on ASV mode but was triggering the alarms patient was switched to CMV mode. - patient is on propofol for sedation, added p.r.n. fentanyl and Versed as patient was agitated (2) Rhabdomyolysis: Qualifiers: Rhabdomyolysis type: non-traumatic Qualified Code(s): M62.82 - Rhabdomyolysis Code(s): M62.82 - Rhabdomyolysis Status: Acute Assessment and Plan: patient with cola colored urine, elevated CK levels - patient in negative fluid balance, discussed with Nephrology, will give IV fluid bolus and placed on maintenance IV fluids - discussed with nephrology, agrees with IV fluids for now - also looked at his medications that may cause rhabdomyolysis but none of his medications that he is on can do that. - CK levels trending down, urine output has been bed and urine color is lightening up. - Will continue to monitor - urine output has been adequate, creatinine trending down and normalized (3) CHF (congestive heart failure): Qualifiers: Heart failure type: diastolic Heart failure chronicity: acute on chronic Qualified Code(s): I50.33 - Acute on chronic diastolic (congestive) heart failure Code(s): I50.9 - Heart failure, unspecified Status: Acute Assessment and Plan: diastolic congestive heart failure ECHO Summary 1. Left ventricular chamber dimension is mildly enlarged. 2. Left ventricular systolic function is normal, estimated at 60-65%. 3. There is moderately increased left ventricular wall thickness. 4. The left ventricular diastolic function is grade I diastolic dysfunction. 5. E/e' 14 is mildy elevated. 6. Left atrial chamber dimension is moderately enlarged. 7. Dilated inferior vena cava with <50% collapse upon inspiration consistent with significantly elevated right atrial pressure, 15 mmHg. diuresis being held as patient may be developing rhabdomyolysis. (4) Bilateral lower extremity edema: Code(s): R60.0 - Localized edema Status: Acute Assessment and Plan: lower extremity Dopplers were negative for DVT (5) Benign essential hypertension: Code(s): I10 - Essential (primary) hypertension Status: Acute Assessment and Plan: patient slightly hypertensive, when he gets agitated. - P.r.n. hydralazine has been ordered (6) Hypokalemia: Code(s): E87.6 - Hypokalemia Status: Acute Assessment and Plan: Will replace K (7) Obstructive sleep apnea on CPAP: Code(s): G47.33 - Obstructive sleep apnea (adult) (pediatric); Z99.89 - Dependence on other enabling machines and devices Status: Acute Assessment and Plan: currently intubated. will need BiPAP/CPAP once extubated (8) Morbid obesity: Code(s): E66.01 - Morbid (severe) obesity due to excess calories Status: Chronic Assessment and Plan: no intervention at this time Additi
[2019-10-05 12:37] LABS: Glucose Point of Care 98 (65-105)
[2019-10-05] MEDS: LACTATED RINGERS 1,000 ML 75 ML IV CONT (13:05)
--- NOTE | 2019-10-05 15:28 | PM.IMPN ---
Progress Note: A&P Assessment and Plan (1) Acute respiratory failure with hypoxia and hypercarbia: Code(s): J96.01 - Acute respiratory failure with hypoxia; J96.02 - Acute respiratory failure with hypercapnia Status: Acute Assessment and Plan: Patient is a 53-year-old morbidly obese male with history of hypertension obstructive sleep apnea on CPAP he decides knees [facility] initially he presented outside facility complaint of shortness of breath and symptoms were progressive getting worse based slight exertion he had difficulty catching his breath patient was evaluated the [place] emergency department and was found to have hypercapnic hypoxic respiratory failure he was transferred to and sent Hospital he was placed on BiPAP and monitored however on BiPAP symptoms were not improved repeat ABG showed worsening CO2 and confusion at that time was decided to intubate the patient by the contact person, patient is on vent, been tested for COVID-19 2 times and has been negative, most likely symptoms are due to hyperventilation due to morbid obesity and possibly underlining pulmonary hypertension pulmonary edema as well as pneumonia. On ventilator in icu Diuresis on hold pt has developed rhabdomylosis after diuresis, continue to monitor cpk Hydrate with fluids Seen by nephrology and ICU attending Continue iv vancomycin and iv cefepime (2) Obstructive sleep apnea on CPAP: Code(s): G47.33 - Obstructive sleep apnea (adult) (pediatric); Z99.89 - Dependence on other enabling machines and devices Status: Acute Assessment and Plan: Currently is on vent (3) Morbid obesity: Code(s): E66.01 - Morbid (severe) obesity due to excess calories Status: Chronic Assessment and Plan: .Chronic problem (4) Essential hypertension: Code(s): I10 - Essential (primary) hypertension Status: Acute Assessment and Plan: on ventilator on precedex. (5) Anxiety and depression: Onset Date: ~2016 Code(s): F41.9 - Anxiety disorder, unspecified; F32.9 - Major depressive disorder, single episode, unspecified Status: Acute Assessment and Plan: No acute issues. (6) Chest pain: Qualifiers: Chest pain type: unspecified Qualified Code(s): R07.9 - Chest pain, unspecified Code(s): R07.9 - Chest pain, unspecified Status: Inactive Assessment and Plan: Resolved Subjective Date/time seen: 10/05/19 15:28 Interval history: 53-year-old morbidly obese male with history of hypertension obstructive sleep apnea on CPAP he decides knees [facility] initially he presented outside facility complaint of shortness of breath and symptoms were progressive getting worse based slight exertion he had difficulty catching his breath patient was evaluated the [place] emergency department and was found to have hypercapnic hypoxic respiratory failure he was transferred to and sent Hospital he was placed on BiPAP and monitored however on BiPAP symptoms were not improved repeat ABG showed worsening CO2 and confusion at that time was decided to intubate the patient by the contact person, patient is on vent, been tested for COVID-19 2 times and has been negative, most likely symptoms are due to hyperventilation due to morbid obesity and possibly underlining pulmonary hypertension pulmonary edema as well as pneumonia. Pt is on ventilator in icu. Pt has developed rhabdomyolysis urine is lightening up Exam Narrative: Exam Narrative: On ventilator in icu Objective Data Vital Signs Vital Signs: Vital Signs - 24 hr 10/04/19 16:00 09/12
--- NOTE | 2019-10-05 16:06 | PM.PNNEP ---
Progress Note: A&P Assessment and Plan (1) Rhabdomyolysis: Qualifiers: Rhabdomyolysis type: non-traumatic Qualified Code(s): M62.82 - Rhabdomyolysis Code(s): M62.82 - Rhabdomyolysis Status: Acute Assessment and Plan: CPK levels trending down etiology not clear reasonable urine output noted urine color itself appears to lightening up as well continue supportive therapy (2) Acute and chronic respiratory failure: Qualifiers: Respiratory failure complication: hypercapnia Qualified Code(s): J96.22 - Acute and chronic respiratory failure with hypercapnia Code(s): J96.20 - Acute and chronic respiratory failure, unspecified whether with hypoxia or hypercapnia Status: Acute Assessment and Plan: on ventilator support wean as tolerated (3) Morbid obesity: Code(s): E66.01 - Morbid (severe) obesity due to excess calories Status: Chronic Assessment and Plan: no change (4) Obstructive sleep apnea on CPAP: Code(s): G47.33 - Obstructive sleep apnea (adult) (pediatric); Z99.89 - Dependence on other enabling machines and devices Status: Acute Assessment and Plan: complicated #2 continue supportive therapy (5) Essential hypertension: Code(s): I10 - Essential (primary) hypertension Status: Acute Assessment and Plan: reasonable control follow trend of hemodyanamics Will continue to follow. Subjective Date/time seen: 10/05/19 16:06 The patient seems to be doing reasonably well if not stable since I last saw him; remains hemodynamically stable but still requiring ventilator support at this time. Exam Narrative: Exam Narrative: General: WD/WN male iin NAD Heart: normal S1 and S2; no rub Lungs: coarse breath sounds Abdomen: soft, nontender, nondistended, positive bowel sounds Extremities: no cyanosis or clubbing; 1+ edema Skin: warm and dry Objective Data Vital Signs Vital Signs: Vital Signs Temp Pulse Resp BP Pulse Ox 10/05/19 14:00 74 20 150/67 H 99 10/05/19 13:35 76 100 10/05/19 12:00 36.9 C 74 20 151/72 H 99 10/05/19 10:50 79 100 10/05/19 10:00 76 19 158/64 H 99 10/05/19 09:21 70 20 10/05/19 09:05 74 21 H 05/24/20 08:00 36.9 C 69 20 109/60 98 10/05/19 07:51 66 97 10/05/19 06:00 56 L 20 100/58 L 94 10/05/19 04:32 66 97 10/05/19 04:00 37.2 C 63 17 108/57 L 94 10/05/19 02:06 55 L 94 10/05/19 01:58 56 L 20 105/63 93 10/05/19 00:00 36.9 C 58 L 20 106/61 96 10/04/19 23:29 59 L 95 10/04/19 21:49 64 20 136/92 H 99 10/04/19 20:00 36.8 C 70 18 131/63 96 10/04/19 19:01 59 L 100 10/04/19 18:00 54 L 13 104/60 91 10/04/19 16:52 55 L 95 Intake/Output Intake/Output: Intake & Output 10/02/19 10/03/19 10/04/19 10/05/19 23:59 23:59 23:59 23:59 Intake Total 2061 1446 3831 3208 Output Total 1800 1150 1450 700 Balance 956 386 5453 2508 Meds/Results Medications: Active Medications Generic Name Dose Route Start Last Admin Trade Name Freq PRN Reason Stop Dose Admin Acetaminophen 650 mg 09/30/19 18:48 10/02/19 12:45 Tylenol Tablet PO 650 mg Q4H PRN Administration Mild Pain (1-3) or Fever Albuterol 2.5 mg 10/01/19 09:20 Albuterol Sulf Neb 2.5mg/0.5ml INHALATION Q4HRT PRN Shortness Of Breath Aspirin 81 mg 10/01/19 09:00 10/05/19 08:02 Aspirin Ec PO 81 mg QAM PAT Administration Dextrose 12.5 gm 10/01/19 10:31 Dextrose 50% Syringe IV PUSH PRN PRN Hypoglycemia Protocol Dornase Bryant 2.5 mg 10/05/19 08:55 10/05/19 09:09 Pulmozyme INHALATION 2.5 mg Q12HRT PAT Administration Enoxaparin Sodium 40 mg 10/01/19 09:00 10/05/19 08:02 Lovenox SUB-Q 40 mg DAILY PAT Administration Famotidine 20 mg 10/01/19 09:00 10/05/19 08:02 Pepcid PO 20 mg Q12HR PAT Administration
[2019-10-05 18:40] LABS: Glucose Point of Care 89 (65-105)
--- NOTE | 2019-10-05 21:16 | PM.PNPUL ---
Progress Note: A&P Additional Plan Subjective Date/time seen: 10/05/19 21:16 note was opened in error. Exam GI: Other: morbid obesity Objective Data Vital Signs Vital Signs: Vital Signs - 24 hr Intake/Output Intake/Output: Intake & Output Meds/Results Medications: Active Medications Generic Name Dose Route Start Last Admin Trade Name Freq PRN Reason Stop Dose Admin Acetaminophen 650 mg 09/30/19 18:48 10/02/19 12:45 Tylenol Tablet PO 650 mg Q4H PRN Administration Mild Pain (1-3) or Fever Albuterol 2.5 mg 10/01/19 09:20 Albuterol Sulf Neb 2.5mg/0.5ml INHALATION Q4HRT PRN Shortness Of Breath Aspirin 81 mg 10/01/19 09:00 10/05/19 08:02 Aspirin Ec PO 81 mg QAM PAT Administration Dextrose 12.5 gm 10/01/19 10:31 Dextrose 50% Syringe IV PUSH PRN PRN Hypoglycemia Protocol Dornase Bryant 2.5 mg 10/05/19 08:55 10/05/19 20:26 Pulmozyme INHALATION 2.5 mg Q12HRT PAT Administration Enoxaparin Sodium 40 mg 10/01/19 09:00 10/05/19 08:02 Lovenox SUB-Q 40 mg DAILY PAT Administration Famotidine 20 mg 10/01/19 09:00 10/05/19 20:36 Pepcid PO 20 mg Q12HR PAT Administration Fentanyl Citrate 50 mcg 10/05/19 09:55 10/05/19 15:23 Sublimaze IV PUSH 50 mcg Q2H PRN Administration Sedation Glucagon 1 mg 10/01/19 10:31 Glucagon For Inj IM PRN PRN Hypoglycemia Protocol Glucose 15 gm 10/01/19 10:31 Glutose 15 PO PRN PRN Hypoglycemia Protocol Hydralazine HCl 10 mg 10/05/19 11:29 Apresoline Hcl Inj IV PUSH Q4H PRN Blood Pressure - High Propofol 100 mls @ 51.6 mls/hr 10/01/19 02:40 10/05/19 20:46 Diprivan IV CONT 50 mcg/kg/min .Q1H57M PAT 51.6 mls/hr Administration Protocol Dextrose 1,000 mls @ 100 mls/hr 10/01/19 10:31 Dextrose 5% 1,000 Ml IVPB PRN PRN Hypoglycemia Protocol Lactated Ringer's 1,000 mls @ 75 mls/hr 10/04/19 12:00 10/05/19 17:59 Lr - Lactated Ringers Iv IV CONT 75 mls/hr .[id number] PAT Infusion Vancomycin HCl 2,000 mg in 500 mls @ 250 mls/hr 10/04/19 13:00 10/05/19 19:10 Vancomycin 2,000 Mg/D5w 500 Ml IVPB Infused Q12H PAT Infusion Cefepime HCl 2 gm in 50 mls @ 100 mls/hr 10/04/19 22:00 10/05/19 13:51 Maxipime 2 Gm/D5w 50 Ml IVPB Infused Q8HR PAT Infusion Midazolam HCl 50 mg in 100 mls @ 8 mls/hr 10/05/19 14:45 10/05/19 20:47 Versed 50 Mg/D5w 100 Ml IV CONT 4 mg/hr .[id number] PAT 8 mls/hr Titration Protocol 4 MG/HR Insulin Aspart 2 - 5 units 10/01/19 12:00 10/05/19 19:30 Novolog SUB-Q Not Given Q6H [facility] Protocol Ipratropium [place] 0.5 mg 10/01/19 09:20 Atrovent Neb INHALATION Q4HRT PRN Shortness Of Breath Midazolam HCl 2 mg 10/05/19 09:05 10/05/19 19:46 Versed IV PUSH 2 mg Q2H PRN Administration Sedation Multi-Ingred Cream/Lotion/Oil/Oint 1 applic 10/01/19 09:00 10/05/19 20:36 Lubrifresh Pm Eye Ointment EACH EYE 1 applic Q12HR PAT Administration Multi-Ingred Cream/Lotion/Oil/Oint 1 applic 10/05/19 21:00 10/05/19 20:36 Lubrifresh Pm Eye Ointment EACH EYE Not Given Q12HR [facility] Labs Labs: Laboratory Results - last 24 hr
[2019-10-06] VITALS (24 sets, daily range): BP systolic 135–157; BP diastolic 58–86; PULSE 67–113; RESP 15–34; TEMP 36–37.8; O2SAT 93–100
[2019-10-06 00:19] LABS: Glucose Point of Care 100 (65-105)
[2019-10-06] MEDS: PROPOFOL IV EMULSION 100 ML 51.6 MG IV CONT ×4 (00:29→06:14)
[2019-10-06 03:47] LABS: Alveolar/Arterial O2 Gradient 130.7 mmHg; Base Excess ABG 10.8 mEq/l (+/-2.0); Carboxyhemoglobin 0.3 % THb (0-2.0); Fractional Inspired Oxygen 40 %; HCO3 ABG 35.7 mEq/l (22.0-26.0); Methemoglobin ABG 0.2 %THb (0-1.5); Modified Allen's Test Pass; Oxygen Content ABG 15.9 %vol (16.0-22.0); Oxygen Saturation ABG 97.7 % (95.0-100.0); Oxyhemoglobin 96.7 % THb (90.0-100.0); PCO2 ABG 49.1 mmHg (35.0-45.0); PO2 FiO2 Ratio Arterial Blood 2.45 %; Reduced Hemoglobin 2.8 %THb (0-5.0); Site Drawn LEFT RADIAL; Total Hemoglobin 11.6 g/dL (12.0-18.0)
[2019-10-06 03:48] LABS: Arterial Blood Gas PEEP 8 cmH2O; Arterial Blood Gas Tidal Volume 470 ml; Arterial Blood Gas Vent Mode CMV; Arterial Blood Gas Ventilator rate 20 /MIN; Device VENTILATOR
[2019-10-06 06:14] LABS: Hematocrit 33.5 % (42.0-52.0); Hemoglobin 10.4 g/dL (14.0-18.0); Mean Corpuscular Hemoglobin 28.2 pg (26-34); Mean Corpuscular Volume 90.8 fl (80-100); Mean Platelet Volume 10.5 fl (7.4-10.4); Platelet Count Result 176 k/mm3 (150-375); Red Blood Count 3.69 M/mm3 (4.6-6.20); Red Cell Distribution Width 16.2 % (11.5-14.5); White Blood Count 7.5 K/mm3 (4.5-10.0)
[2019-10-06 06:37] LABS: Alanine Aminotransferase 62 U/L (4-50); Albumin Level 3.5 g/dL (3.5-5.1); Alkaline Phosphatase 110 U/L (38-126); Aspartate Amino Transferase 169 U/L (17-59); Bilirubin,Total 0.7 mg/dL (0.2-1.3); Blood Urea Nitrogen 19 mg/dL (9-20); Calcium 8.4 mg/dL (8.4-10.2); Carbon Dioxide 37 mmol/L (22-30); Chloride 92 mmol/L (98-107); Estimated CRCL calculation 274 ml/min; Estimated Glomerular Filt Rate > 60; Glucose 151 mg/dL (75-110); Magnesium 2.2 mg/dL (1.6-2.3); Potassium 3.8 mmol/L (3.4-5.0); Sodium 131 mmol/L (137-145)
--- NOTE | 2019-10-06 07:00 | WPDINTPN ---
Progress Note: A&P Assessment and Plan (1) Acute and chronic respiratory failure: Qualifiers: Respiratory failure complication: hypercapnia Qualified Code(s): J96.22 - Acute and chronic respiratory failure with hypercapnia Code(s): J96.20 - Acute and chronic respiratory failure, unspecified whether with hypoxia or hypercapnia Status: Acute Assessment and Plan: Acute on chronic Respiratory failure secondary to obesity hypoventilation syndrome and suspected pulmonary hypertension, pulmonary edema and atelectasis, pneumonia - Continue full mechanical ventilation support to prevent hypoxemia/hypercarbia and end organ damage. - ABG and PCXR reviewed , patient on 40% FiO2, peep is at 8 and tidal volume at 450. change rate to 18 - continue Bronchodilators. - as per admitting physician's note patient has been tested for COVID-19 twice in recent days and was negative - patient has failed extubation trial daily recently, ABG showed hypercapnia, also patient has had thick profuse secretions. he was tried on ASV mode but was triggering the alarms patient was switched to CMV mode. - will perform sedation holiday and perform breathing trial again today. even when extubated patient wean BiPAP therapy due to obesity hypoventilation and respiratory acidosis - continue continue empiric vanc and cefepime check cultures (2) Rhabdomyolysis: Qualifiers: Rhabdomyolysis type: non-traumatic Qualified Code(s): M62.82 - Rhabdomyolysis Code(s): M62.82 - Rhabdomyolysis Status: Acute Assessment and Plan: patient with cola colored urine, elevated CK levels - patient was earlier being diuresed due to volume overload but IV fluids were restarted due to rhabdomyolysis. - CK levels trending down, urine output has been bed and urine color is lightening up. - Will continue to monitor - urine output has been adequate, creatinine trending down and normalized - Recheck CK level today (3) CHF (congestive heart failure): Qualifiers: Heart failure type: diastolic Heart failure chronicity: acute on chronic Qualified Code(s): I50.33 - Acute on chronic diastolic (congestive) heart failure Code(s): I50.9 - Heart failure, unspecified Status: Acute Assessment and Plan: diastolic congestive heart failure ECHO Summary 1. Left ventricular chamber dimension is mildly enlarged. 2. Left ventricular systolic function is normal, estimated at 60-65%. 3. There is moderately increased left ventricular wall thickness. 4. The left ventricular diastolic function is grade I diastolic dysfunction. 5. E/e' 14 is mildy elevated. 6. Left atrial chamber dimension is moderately enlarged. 7. Dilated inferior vena cava with <50% collapse upon inspiration consistent with significantly elevated right atrial pressure, 15 mmHg. diuresis being held as patient may be developing rhabdomyolysis. (4) Bilateral lower extremity edema: Code(s): R60.0 - Localized edema Status: Acute Assessment and Plan: lower extremity Dopplers were negative for DVT (5) Benign essential hypertension: Code(s): I10 - Essential (primary) hypertension Status: Acute Assessment and Plan: patient slightly hypertensive, when he gets agitated. - P.r.n. hydralazine has been ordered (6) Hypokalemia: Code(s): E87.6 - Hypokalemia Status: Acute Assessment and Plan: resolved with replacement. Monitor (7) Obstructive sleep apnea on CPAP: Code(s): G47.33 - Obstructive sleep apnea (adult) (pediatric); Z99.89 - Dependence on other enabling machines and devices Status: Acute Assessment and Plan: currently intubated. will need BiPAP/CPAP once extubated (8) Morbid obesity: Code(s): E66.01 - Morbid (severe) obesity due to excess calories Status: Chronic Assessment and Plan: no intervention at this
[2019-10-06] MEDS: DORNASE ALFA INH SOLN 1 MG/ML 2.5 ML AMP 2.5 MG INHALATION ×2 (08:23→20:39)
[2019-10-06] MEDS: ALBUTEROL SULFATE NEB 2.5 MG/0.5 ML INH INHALATION (08:24)
[2019-10-06] MEDS: IPRATROPIUM BR 0.02% INH SOLN 0.5 MG/2.5 ML VIAL INHALATION (08:24)
[2019-10-06] MEDS: LACTATED RINGERS 1,000 ML 75 ML IV CONT (08:27)
[2019-10-06] MEDS: PROPOFOL IV EMULSION 100 ML 31 MG IV CONT (08:27)
[2019-10-06 08:29] LABS: Creatine Kinase 2285 U/L (55-170)
[2019-10-06] MEDS: ASPIRIN 81 MG ENTERIC TABLET PO (08:30)
[2019-10-06] MEDS: FAMOTIDINE 20 MG TABLET PO ×2 (08:30→21:54)
[2019-10-06] MEDS: ENOXAPARIN 40 MG/0.4 ML SYRINGE SUB-Q (08:30)
[2019-10-06 11:18] LABS: Alveolar/Arterial O2 Gradient 142.3 mmHg; Base Excess ABG 8.6 mEq/l (+/-2.0); Carboxyhemoglobin 0.3 % THb (0-2.0); Fractional Inspired Oxygen 40 %; HCO3 ABG 34.7 mEq/l (22.0-26.0); Methemoglobin ABG 0.1 %THb (0-1.5); Oxygen Content ABG 16.1 %vol (16.0-22.0); Oxygen Saturation ABG 95.7 % (95.0-100.0); Oxyhemoglobin 94.8 % THb (90.0-100.0); PO2 ABG 79.7 mmHg (80.0-100.0); PO2 FiO2 Ratio Arterial Blood 1.99 %; Reduced Hemoglobin 4.8 %THb (0-5.0); pH ABG 7.418 (7.350-7.450)
[2019-10-06 11:19] LABS: Arterial Blood Gas PEEP 8 cmH2O; Arterial Blood Gas Vent Mode SPONTANEOUS; Device VENTILATOR; Modified Allen's Test Pass; Site Drawn RIGHT RADIAL
--- NOTE | 2019-10-06 11:19 | PM.PNNEP ---
Progress Note: A&P Assessment and Plan (1) Rhabdomyolysis: Qualifiers: Rhabdomyolysis type: non-traumatic Qualified Code(s): M62.82 - Rhabdomyolysis Code(s): M62.82 - Rhabdomyolysis Status: Acute Assessment and Plan: CPK levels trending down - albeit slowly etiology not clear reasonable urine output noted urine color itself appears to lightening up as well continue supportive therapy (2) Acute and chronic respiratory failure: Qualifiers: Respiratory failure complication: hypercapnia Qualified Code(s): J96.22 - Acute and chronic respiratory failure with hypercapnia Code(s): J96.20 - Acute and chronic respiratory failure, unspecified whether with hypoxia or hypercapnia Status: Acute Assessment and Plan: on ventilator support wean as tolerated (3) Morbid obesity: Code(s): E66.01 - Morbid (severe) obesity due to excess calories Status: Chronic Assessment and Plan: no change (4) Obstructive sleep apnea on CPAP: Code(s): G47.33 - Obstructive sleep apnea (adult) (pediatric); Z99.89 - Dependence on other enabling machines and devices Status: Acute Assessment and Plan: complicated #2 continue supportive therapy (5) Essential hypertension: Code(s): I10 - Essential (primary) hypertension Status: Acute Assessment and Plan: reasonable control follow trend of hemodyanamics Will continue to follow. Subjective Date/time seen: 10/06/19 11:19 Remains intubated and on mechanical venitlator support; no new issues or problems to report at this time; no apparent distress noted. Exam Narrative: Exam Narrative: General: WD/WN male iin NAD - intubated/sedated Heart: normal S1 and S2; no rub Lungs: coarse breath sounds Abdomen: soft, nontender, nondistended, positive bowel sounds Extremities: no cyanosis or clubbing; 1+ edema Skin: warm and dry Objective Data Vital Signs Vital Signs: Vital Signs Temp Pulse Resp BP Pulse Ox 10/06/19 10:00 78 20 138/76 96 10/06/19 08:56 72 20 10/06/19 08:24 74 20 10/06/19 08:15 79 96 10/06/19 08:00 36.6 C 70 20 140/73 95 10/06/19 06:00 67 20 136/68 98 10/06/19 04:59 69 100 10/06/19 04:00 36.0 C L 67 21 H 144/68 H 100 10/06/19 02:18 73 100 10/06/19 02:00 71 20 139/79 100 10/06/19 00:00 36.8 C 76 20 140/74 100 10/05/19 23:03 74 100 10/05/19 22:00 74 20 134/65 100 10/05/19 20:37 75 20 10/05/19 20:27 77 20 10/05/19 20:25 77 100 10/05/19 20:00 37.0 C 77 21 H 132/65 100 10/05/19 18:00 76 20 150/67 H 99 10/05/19 17:02 78 100 10/05/19 16:00 37.1 C 79 16 141/61 H 100 10/05/19 14:00 74 20 150/67 H 99 10/05/19 13:35 76 100 10/05/19 12:00 36.9 C 74 20 151/72 H 99 Intake/Output Intake/Output: Intake & Output 10/03/19 10/04/19 10/05/19 10/06/19 23:59 23:59 23:59 23:59 Intake Total 1446 3831 5099 2648 Output Total 1150 1450 3200 900 Balance 296 2381 1899 1748 Meds/Results Medications: Active Medications Generic Name Dose Route Start Last Admin Trade Name Freq PRN Reason Stop Dose Admin Acetaminophen 650 mg 09/30/19 18:48 10/02/19 12:45 Tylenol Tablet PO 650 mg Q4H PRN Administration Mild Pain (1-3) or Fever Albuterol 2.5 mg 10/01/19 09:20 10/06/19 08:24 Albuterol Sulf Neb 2.5mg/0.5ml INHALATION 2.5 mg Q4HRT PRN Administration Shortness Of Breath Aspirin 81 mg 10/01/19 09:00 10/06/19 08:30 Aspirin Ec PO 81 mg QAM PAT Administration Dextrose 12.5 gm 10/01/19 10:31 Dextrose 50% Syringe IV PUSH PRN PRN Hypoglycemia Protocol Dornase Bryant 2.5 mg 10/05/19 08:55 10/06/19 08:23 Pulmozyme INHALATION 2.5 mg Q12HRT PAT Administration Enoxaparin Sodium 40 mg 10/01/19 09:00 10/06/19 08:30 Lovenox SUB-Q 40 mg DAILY PAT Administ
[2019-10-06 11:20] LABS: Arterial Blood Gas Pressure Support 8 cmH2O
--- NOTE | 2019-10-06 11:53 | PM.EVENT ---
Event Note Event Note Event Note: 12/19 PSV SBT done for more than 1 hour. RSBI, ABGI and Vitals acceptable. patient does have chronic hypercarbia but is compensated. Pt is awake and following commands. Will extubate patient to BiPAP at this time and monitor. NPO for now. spoke to patient and he is willing to try BiPAP. I feel this is the best he is going to be as far as ventilation is concerned and he will always need BiPAP support at night or p.r.n. due to his morbid obesity and chronic obesity hypoventilation and respiratory failure.
[2019-10-06 12:09] LABS: Glucose Point of Care 112 (65-105)
--- NOTE | 2019-10-06 12:29 | PM.IMPN ---
Progress Note: A&P Assessment and Plan (1) Acute respiratory failure with hypoxia and hypercarbia: Code(s): J96.01 - Acute respiratory failure with hypoxia; J96.02 - Acute respiratory failure with hypercapnia Status: Acute Assessment and Plan: Patient is a 53-year-old morbidly obese male with history of hypertension obstructive sleep apnea on CPAP he decides knees [facility] initially he presented outside facility complaint of shortness of breath and symptoms were progressive getting worse based slight exertion he had difficulty catching his breath patient was evaluated the [place] emergency department and was found to have hypercapnic hypoxic respiratory failure he was transferred to and sent [facility] he was placed on BiPAP and monitored however on BiPAP symptoms were not improved repeat ABG showed worsening CO2 and confusion at that time was decided to intubate the patient by the toll repairer central office, patient is on vent, been tested for COVID-19 2 times and has been negative, most likely symptoms are due to hyperventilation due to morbid obesity and possibly underlining pulmonary hypertension pulmonary edema as well as pneumonia. On ventilator in icu Diuresis on hold pt has developed rhabdomylosis after diuresis, continue to monitor cpk Hydrate with fluids Seen by nephrology and ICU attending Continue iv vancomycin and iv cefepime Extubation planned james (2) Obstructive sleep apnea on CPAP: Code(s): G47.33 - Obstructive sleep apnea (adult) (pediatric); Z99.89 - Dependence on other enabling machines and devices Status: Acute Assessment and Plan: Currently is on vent (3) Morbid obesity: Code(s): E66.01 - Morbid (severe) obesity due to excess calories Status: Chronic Assessment and Plan: .Chronic problem (4) Essential hypertension: Code(s): I10 - Essential (primary) hypertension Status: Acute Assessment and Plan: on ventilator (5) Anxiety and depression: Onset Date: ~2016 Code(s): F41.9 - Anxiety disorder, unspecified; F32.9 - Major depressive disorder, single episode, unspecified Status: Acute Assessment and Plan: No acute issues. (6) Chest pain: Qualifiers: Chest pain type: unspecified Qualified Code(s): R07.9 - Chest pain, unspecified Code(s): R07.9 - Chest pain, unspecified Status: Inactive Assessment and Plan: Resolved Subjective Date/time seen: 10/06/19 12:29 Interval history: 53-year-old morbidly obese male with history of hypertension obstructive sleep apnea on CPAP he decides knees [facility] initially he presented outside facility complaint of shortness of breath and symptoms were progressive getting worse based slight exertion he had difficulty catching his breath patient was evaluated the [place] emergency department and was found to have hypercapnic hypoxic respiratory failure he was transferred to and sent Hospital he was placed on BiPAP and monitored however on BiPAP symptoms were not improved repeat ABG showed worsening CO2 and confusion at that time was decided to intubate the patient by the toll repairer central office, patient is on vent, been tested for COVID-19 2 times and has been negative, most likely symptoms are due to hyperventilation due to morbid obesity and possibly underlining pulmonary hypertension pulmonary edema as well as pneumonia. Pt is on ventilator in icu, plan to extubate today. Pt has developed rhabdomyolysis which is resolving. Exam Narrative: Exam Narrative: On ventilator in icu Neuro: Other: Patient on vent, off sedation Objec
--- NOTE | 2019-10-06 13:29 | PM.PNPUL ---
Progress Note: A&P Assessment and Plan (1) Acute respiratory failure with hypoxia and hypercarbia: Code(s): J96.01 - Acute respiratory failure with hypoxia; J96.02 - Acute respiratory failure with hypercapnia Status: Acute Assessment and Plan: - multifactorial likely due to CHF and others, COPD or obstructive airway disease is less likely. - FENG/OHS are likely present but not the sole cause of acute respiratory failure - pt had angina like symptoms on admission. Should have cardiology workup at some point - recommend diuresis while care not to cause metabolic alkalosis. - monitor closely clinically and with ABGs/VBGs Time Spent With Patient Time with patient: 15 - 25 minutes Subjective Date/time seen: 10/06/19 13:29 Interval history: Exutbated to BIPAP 26/12 with good tidal volumes. Patient seems a bit lethargic and confused but vitals are stable Review of Systems Review of Systems: All systems reviewed & are unremarkable except as noted in HPI and below Exam Const: General: comfortable and no acute distress Neck: Neck: supple and no JVD Resp: Effort & Inspection: normal respiratory effort Auscultation: no crackles, no rales, no rhonchi, no wheezes and diminished lung sounds Cardio: Rate: regular rate Rhythm: regular rhythm GI: Auscultation: normal bowel sounds Skin: General skin exam: normal color Extrem: General: normal to inspection and edema Objective Data Vital Signs Vital Signs: Vital Signs - 24 hr 10/05/19 13:35 10/05/19 14:00 10/05/19 16:00 Temperature 37.1 C Pulse Rate 76 74 79 Respiratory Rate 20 16 Blood Pressure 150/67 H 141/61 H Pulse Oximetry 100 99 100 10/05/19 17:02 10/05/19 18:00 10/05/19 20:00 Temperature 37.0 C Pulse Rate 78 76 77 Respiratory Rate 20 21 H Blood Pressure 150/67 H 132/65 Pulse Oximetry 100 99 100 10/05/19 20:25 10/05/19 20:27 10/05/19 20:37 Temperature Pulse Rate 77 77 75 Respiratory Rate 20 20 Blood Pressure Pulse Oximetry 100 10/05/19 22:00 10/05/19 23:03 10/06/19 00:00 Temperature 36.8 C Pulse Rate 74 74 76 Respiratory Rate 20 20 Blood Pressure 134/65 140/74 Pulse Oximetry 100 100 100 10/06/19 02:00 10/06/19 02:18 10/06/19 04:00 Temperature 36.0 C L Pulse Rate 71 73 67 Respiratory Rate 20 21 H Blood Pressure 139/79 144/68 H Pulse Oximetry 100 100 100 10/06/19 04:59 10/06/19 06:00 10/06/19 08:00 Temperature 36.6 C Pulse Rate 69 67 70 Respiratory Rate 20 20 Blood Pressure 136/68 140/73 Pulse Oximetry 100 98 95 10/06/19 08:15 10/06/19 08:24 10/06/19 08:56 Temperature Pulse Rate 79 74 72 Respiratory Rate 20 20 Blood Pressure Pulse Oximetry 96 10/06/19 10:00 10/06/19 11:15 10/06/19 12:00 Temperature Pulse Rate 78 80 83 Respiratory Rate 20 18 Blood Pressure 138/76 154/85 H Pulse Oximetry 96 98 98 10/06/19 12:10 Temperature Pulse Rate 80 Respiratory Rate 15 Blood Pressure Pulse Oximetry 99 Intake/Output Intake/Output: Intake & Output 10/03/19 10/04/19 10/05/19 10/06/19 23:59 23:59 23:59 23:59 Intake Total 1446 3831 5099 3058 Output Total 1150 1450 3200 2650 Balance 296 2381 8869 408 Meds/Results Medications: Active Medications Generic Name Dose Route Start Last Admin Trade Name Freq PRN Reason Stop Dose Admin Acetaminophen 650 mg 09/30/19 18:48 10/02/19 12:45 Tylenol Tablet PO 650 mg Q4H PRN Administration Mild Pain (1-3) or Fever Albuterol 2.5 mg 10/01/19 09:20 10/06/19 08:24 Albuterol Sulf Neb 2.5mg/0.5ml INHALATION 2.5 mg Q4HRT PRN Administration Shortness Of Breath Aspirin 81 mg 10/01/19 09:00 10/06/19 08:30 Aspirin Ec PO 81 mg QAM PAT Administration Dextrose 12.5 gm 10/01/19 10:31 Dextrose 50% Syringe IV PUSH PRN PRN Hypoglycemia Protocol Dornase Bryant 2.5 mg 10/05/19 08:55 10/06/19 08:23 Pulmozyme INHALATION 2.5 mg Q12HRT PAT Administration
[2019-10-06 18:06] LABS: Glucose Point of Care 81 (65-105)
[2019-10-06 23:35] LABS: Glucose Point of Care 95 (65-105)
[2019-10-07] VITALS (16 sets, daily range): BP systolic 127–145; BP diastolic 47–75; PULSE 78–101; RESP 18–26; TEMP 36.3–38.2; O2SAT 92–98
[2019-10-07 03:45] LABS: Vancomycin Trough 9.5 ug/mL (10.0-20.0)
[2019-10-07 04:56] LABS: Hematocrit 36.2 % (42.0-52.0); Hemoglobin 10.8 g/dL (14.0-18.0); Mean Corpuscular HGB Conc 29.8 g/dl (32-36); Mean Corpuscular Hemoglobin 27.9 pg (26-34); Mean Corpuscular Volume 93.5 fl (80-100); Mean Platelet Volume 10.3 fl (7.4-10.4); Platelet Count Result 201 k/mm3 (150-375); Red Blood Count 3.87 M/mm3 (4.6-6.20); Red Cell Distribution Width 15.9 % (11.5-14.5); White Blood Count 8.5 K/mm3 (4.5-10.0)
[2019-10-07 05:08] LABS: Alanine Aminotransferase 64 U/L (4-50); Albumin Level 3.6 g/dL (3.5-5.1); Alkaline Phosphatase 109 U/L (38-126); Aspartate Amino Transferase 121 U/L (17-59); Blood Urea Nitrogen 15 mg/dL (9-20); Calcium 8.8 mg/dL (8.4-10.2); Carbon Dioxide 39 mmol/L (22-30); Chloride 95 mmol/L (98-107); Creatine Kinase 932 U/L (55-170); Estimated CRCL calculation 191 ml/min; Estimated Glomerular Filt Rate > 60; Glucose 119 mg/dL (75-110); Magnesium 2.1 mg/dL (1.6-2.3); Potassium 3.8 mmol/L (3.4-5.0); Sodium 139 mmol/L (137-145)
--- NOTE | 2019-10-07 08:00 | WPDINTPN ---
Progress Note: A&P Assessment and Plan (1) Acute and chronic respiratory failure: Qualifiers: Respiratory failure complication: hypercapnia Qualified Code(s): J96.22 - Acute and chronic respiratory failure with hypercapnia Code(s): J96.20 - Acute and chronic respiratory failure, unspecified whether with hypoxia or hypercapnia Status: Acute Assessment and Plan: Acute on chronic Respiratory failure secondary to obesity hypoventilation syndrome and suspected pulmonary hypertension, pulmonary edema and atelectasis, pneumonia - patient extubated yesterday 10/05 and was on BiPAP afternoon and last night - continue BiPAP 18/8 p.r.n. and at night - discontinue dornase - continue Bronchodilators. - as per admitting physician's note patient has been tested for COVID-19 twice in recent days and was negative - continue continue empiric vanc and cefepime - pending cultures - physical therapy, out of bed and up in chair today, aggressive incentive spirometry (2) Rhabdomyolysis: Qualifiers: Rhabdomyolysis type: non-traumatic Qualified Code(s): M62.82 - Rhabdomyolysis Code(s): M62.82 - Rhabdomyolysis Status: Acute Assessment and Plan: patient with cola colored urine, elevated CK levels - patient was earlier being diuresed due to volume overload but IV fluids were restarted due to rhabdomyolysis. - CK levels trending down, urine output is adequate - DC IV fluids at this time and start diet - Will continue to monitor (3) CHF (congestive heart failure): Qualifiers: Heart failure type: diastolic Heart failure chronicity: acute on chronic Qualified Code(s): I50.33 - Acute on chronic diastolic (congestive) heart failure Code(s): I50.9 - Heart failure, unspecified Status: Acute Assessment and Plan: diastolic congestive heart failure ECHO Summary 1. Left ventricular chamber dimension is mildly enlarged. 2. Left ventricular systolic function is normal, estimated at 60-65%. 3. There is moderately increased left ventricular wall thickness. 4. The left ventricular diastolic function is grade I diastolic dysfunction. 5. E/e' 14 is mildy elevated. 6. Left atrial chamber dimension is moderately enlarged. 7. Dilated inferior vena cava with <50% collapse upon inspiration consistent with significantly elevated right atrial pressure, 15 mmHg. diuresis being held as patient may be developing rhabdomyolysis. discontinue IV fluid (4) Bilateral lower extremity edema: Code(s): R60.0 - Localized edema Status: Acute Assessment and Plan: lower extremity Dopplers were negative for DVT (5) Benign essential hypertension: Code(s): I10 - Essential (primary) hypertension Status: Acute Assessment and Plan: - P.r.n. hydralazine has been ordered (6) Hypokalemia: Code(s): E87.6 - Hypokalemia Status: Acute Assessment and Plan: resolved with replacement. Monitor (7) Obstructive sleep apnea on CPAP: Code(s): G47.33 - Obstructive sleep apnea (adult) (pediatric); Z99.89 - Dependence on other enabling machines and devices Status: Acute Assessment and Plan: BiPAP at night (8) Morbid obesity: Code(s): E66.01 - Morbid (severe) obesity due to excess calories Status: Chronic Assessment and Plan: no intervention at this time Additional Plan consult physical therapy and occupational therapy, up in chair today DVT prophylaxis - Lovenox Stress ulcer prophylaxis - not indicated Nutrition - start clear liquid diet Code Status - Full Code Subjective Date/time seen: 10/07/19 08:00 Patient was extubated yesterday after a pressure support weaning trial. patient wore BiPAP yesterday afternoon and all night. he feels much better this morning. his only complaint is he feels soreness in his bottom from laying in bed all these day
[2019-10-07] MEDS: ENOXAPARIN 40 MG/0.4 ML SYRINGE SUB-Q (08:07)
[2019-10-07] MEDS: FAMOTIDINE 20 MG TABLET PO (08:07)
[2019-10-07] MEDS: ASPIRIN 81 MG ENTERIC TABLET PO (08:07)
--- NOTE | 2019-10-07 09:23 | PM.PNNEP ---
Progress Note: A&P Assessment and Plan (1) Rhabdomyolysis: Qualifiers: Rhabdomyolysis type: non-traumatic Qualified Code(s): M62.82 - Rhabdomyolysis Code(s): M62.82 - Rhabdomyolysis Status: Acute Assessment and Plan: CPK levels trending down etiology not clear reasonable urine output noted urine color normal continue supportive therapy (2) Acute and chronic respiratory failure: Qualifiers: Respiratory failure complication: hypercapnia Qualified Code(s): J96.22 - Acute and chronic respiratory failure with hypercapnia Code(s): J96.20 - Acute and chronic respiratory failure, unspecified whether with hypoxia or hypercapnia Status: Acute Assessment and Plan: resolving extubated follow respiratory status (3) Morbid obesity: Code(s): E66.01 - Morbid (severe) obesity due to excess calories Status: Chronic Assessment and Plan: no change (4) Essential hypertension: Code(s): I10 - Essential (primary) hypertension Status: Acute Assessment and Plan: reasonable control follow trend of hemodyanamics Not much else to offer from renal perspective -- will follow from a distance. Subjective Date/time seen: 10/07/19 09:23 Successfully extubated yesterday without any issues or problems; no apparent distress voiced other than weakness from being bed bound so long. Exam Narrative: Exam Narrative: General: WD/WN male iin NAD Heart: normal S1 and S2; no rub Lungs: coarse breath sounds Abdomen: soft, nontender, nondistended, positive bowel sounds Extremities: no cyanosis or clubbing; 1+ edema Skin: warm and intact Objective Data Vital Signs Vital Signs: Vital Signs Temp Pulse Resp BP Pulse Ox 10/07/19 08:39 92 10/07/19 08:00 37.1 C 87 18 131/75 92 10/07/19 06:00 80 18 127/69 98 10/07/19 04:00 37.6 C 84 20 130/73 98 10/07/19 02:18 101 H 22 H 96 10/07/19 02:00 92 22 H 141/70 H 96 10/07/19 00:00 38.2 C H 90 24 H 132/72 95 10/06/19 23:30 103 H 25 H 95 10/06/19 22:00 96 34 H 154/79 H 95 10/06/19 21:00 95 10/06/19 20:51 105 H 26 H 96 10/06/19 20:40 113 H 28 H 10/06/19 20:00 37.8 C H 104 H 22 H 147/86 H 93 10/06/19 18:00 110 H 24 H 145/86 H 93 10/06/19 16:00 97 22 H 135/82 94 10/06/19 14:45 94 10/06/19 14:00 91 18 157/58 H 98 10/06/19 12:10 80 15 99 10/06/19 12:00 83 18 154/85 H 98 10/06/19 11:15 80 98 10/06/19 10:00 78 20 138/76 96 Intake/Output Intake/Output: Intake & Output 10/04/19 10/05/19 10/06/19 10/07/19 23:59 23:59 23:59 23:59 Intake Total 3831 5099 4453 1242 Output Total 1450 3200 4450 850 Balance 2381 1899 3 392 Meds/Results Medications: Active Medications Generic Name Dose Route Start Last Admin Trade Name Freq PRN Reason Stop Dose Admin Acetaminophen 650 mg 09/30/19 18:48 10/02/19 12:45 Tylenol Tablet PO 650 mg Q4H PRN Administration Mild Pain (1-3) or Fever Albuterol 2.5 mg 10/01/19 09:20 10/06/19 08:24 Albuterol Sulf Neb 2.5mg/0.5ml INHALATION 2.5 mg Q4HRT PRN Administration Shortness Of Breath Aspirin 81 mg 10/01/19 09:00 10/07/19 08:07 Aspirin Ec PO 81 mg QAM PAT Administration Dextrose 12.5 gm 10/01/19 10:31 Dextrose 50% Syringe IV PUSH PRN PRN Hypoglycemia Protocol Enoxaparin Sodium 40 mg 10/01/19 09:00 10/07/19 08:07 Lovenox SUB-Q 40 mg DAILY APT Administration Fentanyl Citrate 50 mcg 10/05/19 09:55 10/05/19 15:23 Sublimaze IV PUSH 50 mcg Q2H PRN Administration Sedation Glucagon 1 mg 10/01/19 10:31 Glucagon For Inj IM PRN PRN Hypoglycemia Protocol Glucose 15 gm 10/01/19 10:31 Glutose 15 PO PRN PRN Hypoglycemia Protocol Hydralazine HCl 10 mg 10/05/19 11:29 Apresoline Hcl Inj IV PUSH Q4H PRN
--- NOTE | 2019-10-07 10:36 | PCDIET ---
Nutrition Follow-Up Complete: Nutrition Diagnosis: Inadequate oral intake related to oral intubation as evidenced by NPO status. Nutrition Goal: Patient to meet estimated nutritional needs. Goal in progress. Patient extubated yesterday and diet was just advanced to clear liquid. Dietary to provide Ensure Clear (240kcal, 8g protein) TID while on clear liquid diet. Last recorded weight is 161.3 kg which is down from last review. +I/O. Bowel Motility: +BM on 10/06/19. Labs Reviewed: Glu (119) Meds Noted: Albuterol, Fentanyl, Vancomycin, Cefepime, Novolog, Atrovent, Versed Additional Notes: Bilateral buttocks with deep tissue injuries. Sacrum with unstageable area. Right foot with laceration. Will follow closely to ensure adequate protein intake for healing. Nutrition Monitoring and Evaluation: Follow up every 3 days.
[2019-10-07 11:49] LABS: Glucose Point of Care 200 (65-105)
--- NOTE | 2019-10-07 12:11 | PM.PNPUL ---
Progress Note: A&P Assessment and Plan (1) Asthma exacerbation: Code(s): J45.901 - Unspecified asthma with (acute) exacerbation Status: Acute Assessment and Plan: - schedule Albuterol 2.5 mg Nebs Q6h - scheudle Ipratropium 0.5 mg Nebs Q6h - start pulmicort 0.5 mg nebs Q12h - start prednisone 40 mg PO OD for 7 days then d/c - Switch to Symbicort 160/4.5 mcg 2 puffs Q12h via spacer device upon discharge home. Subjective Date/time seen: 10/07/19 12:11 Interval history: After speaking with the patient in detail this morning and examing him, I think he had an Asthma Exaxerbation that lead to respiratory failure in the setting of possible FENG/OHS. He says he's had Asthma since childhood and over the past few weeks he was getting more short of breath with chest tigness and wheezing. He was not on and ICS/LABA or ICS at home and was only on Albuterol as needed. Review of Systems Review of Systems: All systems reviewed & are unremarkable except as noted in HPI and below Exam Const: General: no acute distress and uncomfortable HENMT: Mouth: Yes dry mucous membranes Eyes: General: appearance normal, both eyes and all related structures Neck: Neck: supple and no JVD Resp: Auscultation: wheezes expiratory wheezes and diminished lung sounds Cardio: Rate: regular rate Rhythm: regular rhythm GI: Auscultation: normal bowel sounds Skin: General skin exam: erythema Neuro: Speech: normal speech Extrem: General: edema Psych: Mental Status: mental status grossly normal Objective Data Vital Signs Vital Signs: Vital Signs - 24 hr 10/06/19 14:00 10/06/19 14:45 10/06/19 16:00 Temperature Pulse Rate 91 97 Respiratory Rate 18 22 H Blood Pressure 157/58 H 135/82 Pulse Oximetry 98 94 94 10/06/19 18:00 10/06/19 20:00 10/06/19 20:40 Temperature 37.8 C H Pulse Rate 110 H 104 H 113 H Respiratory Rate 24 H 22 H 28 H Blood Pressure 145/86 H 147/86 H Pulse Oximetry 93 93 10/06/19 20:51 10/06/19 21:00 10/06/19 22:00 Temperature Pulse Rate 105 H 96 Respiratory Rate 26 H 34 H Blood Pressure 154/79 H Pulse Oximetry 96 95 95 10/06/19 23:30 10/07/19 00:00 10/07/19 02:00 Temperature 38.2 C H Pulse Rate 103 H 90 92 Respiratory Rate 25 H 24 H 22 H Blood Pressure 132/72 141/70 H Pulse Oximetry 95 95 96 10/07/19 02:18 10/07/19 04:00 10/07/19 06:00 Temperature 37.6 C Pulse Rate 101 H 84 80 Respiratory Rate 22 H 20 18 Blood Pressure 130/73 127/69 Pulse Oximetry 96 98 98 10/07/19 08:00 10/07/19 08:39 10/07/19 10:00 Temperature 37.1 C Pulse Rate 87 95 Respiratory Rate 18 23 H Blood Pressure 131/75 128/75 Pulse Oximetry 92 92 95 Intake/Output Intake/Output: Intake & Output 10/04/19 10/05/19 10/06/19 10/07/19 23:59 23:59 23:59 23:59 Intake Total 3831 5099 4453 1722 Output Total 1450 3200 4450 850 Balance 2381 1899 3 872 Meds/Results Medications: Active Medications Generic Name Dose Route Start Last Admin Trade Name Freq PRN Reason Stop Dose Admin Acetaminophen 650 mg 09/30/19 18:48 10/02/19 12:45 Tylenol Tablet PO 650 mg Q4H PRN Administration Mild Pain (1-3) or Fever Albuterol 2.5 mg 10/07/19 12:10 Albuterol Sulf Neb 2.5mg/0.5ml INHALATION Q6H [facility] Aspirin 81 mg 10/01/19 09:00 10/07/19 08:07 Aspirin Ec PO 81 mg QAM PAT Administration Budesonide 0.5 mg 10/07/19 20:00 Pulmicort Respule Neb INHALATION Q12HRT PAT Dextrose 12.5 gm 10/01/19 10:31 Dextrose 50% Syringe IV PUSH PRN PRN Hypoglycemia Protocol Enoxaparin Sodium 40 mg 10/01/19 09:00 10/07/19 08:07 Lovenox SUB-Q 40 mg DAILY PAT Administration Fentanyl Citrate 50 mcg 10/05/19 09:55 10/05/19 15:23 Sublimaze IV PUSH 50 mcg Q2H PRN Administration Sedation Glucagon 1 mg 10/01/19 10:31 Glucagon For Inj IM PRN PRN Hypoglycemia Protocol Glucose 15 gm 10/01/19 10:31
[2019-10-07] MEDS: predniSONE 20 MG TABLET 40 MG PO (13:29)
[2019-10-07] MEDS: IPRATROPIUM BR 0.02% INH SOLN 0.5 MG/2.5 ML VIAL INHALATION ×2 (14:28→20:43)
[2019-10-07] MEDS: ALBUTEROL SULFATE NEB 2.5 MG/0.5 ML INH INHALATION ×2 (14:29→20:42)
--- NOTE | 2019-10-07 14:50 | PCRCNOTE ---
Window of time for administration has passed. See next scheduled administration.
[2019-10-07 16:52] LABS: Glucose Point of Care 110 (65-105)
--- NOTE | 2019-10-07 16:55 | PC.NURSE ---
Patient transferred to [facility] via wheelchair on 10/07/2019 at 1601. Report given to GINO Griffiths. Belongings transferred with patient.
--- NOTE | 2019-10-07 17:12 | PM.IMPN ---
Progress Note: A&P Assessment and Plan (1) Acute respiratory failure with hypoxia and hypercarbia: Code(s): J96.01 - Acute respiratory failure with hypoxia; J96.02 - Acute respiratory failure with hypercapnia Status: Acute Assessment and Plan: Patient is a 53-year-old morbidly obese male with history of hypertension obstructive sleep apnea on CPAP he decides knees [facility] initially he presented outside facility complaint of shortness of breath and symptoms were progressive getting worse based slight exertion he had difficulty catching his breath patient was evaluated the [place] emergency department and was found to have hypercapnic hypoxic respiratory failure he was transferred to and sent Hospital he was placed on BiPAP and monitored however on BiPAP symptoms were not improved repeat ABG showed worsening CO2 and confusion at that time was decided to intubate the patient by the hay sorter, patient is on vent, been tested for COVID-19 2 times and has been negative, most likely symptoms are due to hyperventilation due to morbid obesity and possibly underlining pulmonary hypertension pulmonary edema as well as pneumonia. Asthma Exaxerbation that lead to respiratory failure in the setting of possible FENG/OHS. He says he's had Asthma since childhood and over the past few weeks he was getting more short of breath with chest tigness and wheezing. He was not on and ICS/LABA or ICS at home and was only on Albuterol as needed. patient was extubated on 10/05Patient seen by pulmonoligst today added pulmicort switch symbicort to twice a day spacer started on oral prednisone, patient is clinically stable, will transfer patient out of ICU, will continue PT/ot evaluation (2) Obstructive sleep apnea on CPAP: Code(s): G47.33 - Obstructive sleep apnea (adult) (pediatric); Z99.89 - Dependence on other enabling machines and devices Status: Acute Assessment and Plan: Currently is on vent (3) Morbid obesity: Code(s): E66.01 - Morbid (severe) obesity due to excess calories Status: Chronic Assessment and Plan: .Chronic problem (4) Essential hypertension: Code(s): I10 - Essential (primary) hypertension Status: Acute Assessment and Plan: on ventilator (5) Anxiety and depression: Onset Date: ~2016 Code(s): F41.9 - Anxiety disorder, unspecified; F32.9 - Major depressive disorder, single episode, unspecified Status: Acute Assessment and Plan: No acute issues. (6) Chest pain: Qualifiers: Chest pain type: unspecified Qualified Code(s): R07.9 - Chest pain, unspecified Code(s): R07.9 - Chest pain, unspecified Status: Inactive Assessment and Plan: Resolved Additional Plan Supervising physician for this history and physical is Dr. Russ Lyons. Subjective Date/time seen: 10/07/19 17:12 Interval history: Asthma Exaxerbation that lead to respiratory failure in the setting of possible FENG/OHS. He says he's had Asthma since childhood and over the past few weeks he was getting more short of breath with chest tigness and wheezing. He was not on and ICS/LABA or ICS at home and was only on Albuterol as needed. Patient was extubated on 10/05 Patient seen by pulmonoligst today added pulmicort switch symbicort to twice a day spacer started on oral prednisone, patient is clinically stable, will transfer patient out of ICU, will continue PT/ot evaluation Review of Systems Review of Systems: All systems reviewed & are unremarkable except as noted in HPI and below Exam Narrative: Exam Narrative: Morbidly obese with BMI 50 Const: Genera
--- NOTE | 2019-10-07 18:00 | PC.NURSE ---
Patient received fro ICU 12 at 1605. Report received from Rina CHRISTIAN. Patient in bed resting comfortably at this time. Will continue to monitor patient.
[2019-10-07] MEDS: BUDESONIDE RESPULE NEB 0.5 MG/2 ML AMP INHALATION (20:43)
[2019-10-07 23:42] LABS: Glucose Point of Care 127 (65-105)
[2019-10-08] VITALS (17 sets, daily range): BP systolic 130–140; BP diastolic 65–72; PULSE 68–89; RESP 16–26; TEMP 36–37; O2SAT 93–100
[2019-10-08] MEDS: IPRATROPIUM BR 0.02% INH SOLN 0.5 MG/2.5 ML VIAL INHALATION ×4 (01:35→19:25)
[2019-10-08] MEDS: ALBUTEROL SULFATE NEB 2.5 MG/0.5 ML INH INHALATION ×4 (01:35→19:24)
[2019-10-08 05:07] LABS: Hematocrit 35.4 % (42.0-52.0); Hemoglobin 10.8 g/dL (14.0-18.0); Mean Corpuscular HGB Conc 30.5 g/dl (32-36); Mean Corpuscular Volume 91.7 fl (80-100); Mean Platelet Volume 10.1 fl (7.4-10.4); Platelet Count Result 226 k/mm3 (150-375); Red Blood Count 3.86 M/mm3 (4.6-6.20); Red Cell Distribution Width 15.3 % (11.5-14.5); White Blood Count 9.3 K/mm3 (4.5-10.0)
[2019-10-08 05:16] LABS: Glucose Point of Care 92 (65-105)
[2019-10-08 05:42] LABS: Alanine Aminotransferase 60 U/L (4-50); Albumin Level 3.8 g/dL (3.5-5.1); Alkaline Phosphatase 100 U/L (38-126); Aspartate Amino Transferase 77 U/L (17-59); Bilirubin,Total 0.8 mg/dL (0.2-1.3); Blood Urea Nitrogen 16 mg/dL (9-20); Calcium 8.9 mg/dL (8.4-10.2); Carbon Dioxide > 40 mmol/L (22-30); Chloride 92 mmol/L (98-107); Creatine Kinase 412 U/L (55-170); Estimated CRCL calculation 224 ml/min; Estimated Glomerular Filt Rate > 60; Glucose 117 mg/dL (75-110); Magnesium 2.1 mg/dL (1.6-2.3); Potassium 3.7 mmol/L (3.4-5.0); Sodium 134 mmol/L (137-145)
[2019-10-08] MEDS: BUDESONIDE RESPULE NEB 0.5 MG/2 ML AMP INHALATION ×2 (08:53→19:24)
[2019-10-08] MEDS: predniSONE 20 MG TABLET 40 MG PO (09:58)
[2019-10-08] MEDS: ASPIRIN 81 MG ENTERIC TABLET PO (09:58)
[2019-10-08] MEDS: ENOXAPARIN 40 MG/0.4 ML SYRINGE SUB-Q (10:00)
[2019-10-08 11:24] LABS: Glucose Point of Care 136 (65-105)
--- NOTE | 2019-10-08 14:15 | PM.IMPN ---
Progress Note: A&P Assessment and Plan (1) Acute respiratory failure with hypoxia and hypercarbia: Code(s): J96.01 - Acute respiratory failure with hypoxia; J96.02 - Acute respiratory failure with hypercapnia Status: Acute Assessment and Plan: Patient is a 53-year-old morbidly obese male with history of hypertension obstructive sleep apnea on CPAP he [facility] he presented outside facility complaint of shortness of breath and symptoms were progressive getting worse based slight exertion he had difficulty catching his breath patient was evaluated the [place] emergency department and was found to have hypercapnic hypoxic respiratory failure he was transferred to and sent Hospital he was placed on BiPAP and monitored however on BiPAP symptoms were not improved repeat ABG showed worsening CO2 and confusion at that time was decided to intubate the patient by the inpatient services director, patient is on vent, been tested for COVID-19 2 times and has been negative, most likely symptoms are due to hyperventilation due to morbid obesity and possibly underlining pulmonary hypertension pulmonary edema as well as pneumonia. Asthma Exaxerbation that lead to respiratory failure in the setting of possible FENG/OHS. He says he's had Asthma since childhood and over the past few weeks he was getting more short of breath with chest tigness and wheezing. He was not on and ICS/LABA or ICS at home and was only on Albuterol as needed. Patient was extubated on 10/05 Patient seen by pulmonoligst, on 10/06 added pulmicort switch symbicort to twice a day spacer started on oral prednisone, and was transferred out of ICU, will continue PT/ot evaluation, today patient feeling much better not a short of breath however is very hungry has he been having clear liquid for last couple of days and would like to advance his diet, will advanced diet to full liquid and to heart healthy diet once tolerated, will continue to monitor, will have a PT OT evaluate the patient patient will benefit from going to acute rehab before going home (2) Obstructive sleep apnea on CPAP: Code(s): G47.33 - Obstructive sleep apnea (adult) (pediatric); Z99.89 - Dependence on other enabling machines and devices Status: Acute Assessment and Plan: extubated on 10/05 uses CPAP at night . (3) Morbid obesity: Code(s): E66.01 - Morbid (severe) obesity due to excess calories Status: Chronic Assessment and Plan: .Chronic problem (4) Essential hypertension: Code(s): I10 - Essential (primary) hypertension Status: Acute Assessment and Plan: still soft, will monitor and resume home medication (5) Anxiety and depression: Onset Date: ~2016 Code(s): F41.9 - Anxiety disorder, unspecified; F32.9 - Major depressive disorder, single episode, unspecified Status: Acute Assessment and Plan: will resume SSRI (6) Chest pain: Qualifiers: Chest pain type: unspecified Qualified Code(s): R07.9 - Chest pain, unspecified Code(s): R07.9 - Chest pain, unspecified Status: Inactive Assessment and Plan: Resolved Subjective Date/time seen: 10/08/19 14:15 Interval history: Asthma Exaxerbation that lead to respiratory failure in the setting of possible FENG/OHS. He says he's had Asthma since childhood and over the past few weeks he was getting more short of breath with chest tigness and wheezing. He was not on and ICS/LABA or ICS at home and was only on Albuterol as needed. Patient was extubated on 10/05 Patient seen by pulmonoligst, on 10/06 added pulmicort switch symbicort to twice a day spacer started on oral prednisone, and
[2019-10-08 17:14] LABS: Glucose Point of Care 184 (65-105)
--- NOTE | 2019-10-08 21:22 | PM.PNPUL ---
Progress Note: A&P Assessment and Plan (1) Acute respiratory failure with hypoxia and hypercarbia: Code(s): J96.01 - Acute respiratory failure with hypoxia; J96.02 - Acute respiratory failure with hypercapnia Status: Acute Assessment and Plan: Resolved; now on room air. He has multiple issues contributing to his admission including FENG/OHS, CHF, less likely COPD. Will need walk study before being discharged. Will need additional evaluation in cluding PFTs, sleep study after discharge. He is now using BiPAP 15/8 at night tolerating this well. He should go to the swing bed in [place] using these settings. (2) Obstructive sleep apnea on CPAP: Code(s): G47.33 - Obstructive sleep apnea (adult) (pediatric); Z99.89 - Dependence on other enabling machines and devices Status: Acute Assessment and Plan: He is not on treatment at home, has an old broken machine, and needs treatment to manage his multiple medical issues. He is now using BIPAP 15/8 at night, tolerating, and can be discharged on this on his transfer to [place]. (3) CHF (congestive heart failure): Qualifiers: Heart failure chronicity: acute on chronic Heart failure type: diastolic Qualified Code(s): I50.33 - Acute on chronic diastolic (congestive) heart failure Code(s): I50.9 - Heart failure, unspecified Status: Acute Assessment and Plan: improved. (4) Bilateral lower extremity edema: Code(s): R60.0 - Localized edema Status: Acute Assessment and Plan: due to CHF. Improved (5) Class 3 severe obesity with body mass index (BMI) of 50.0 to 59.9 in adult: Code(s): E66.01 - Morbid (severe) obesity due to excess calories; Z68.43 - Body mass index (BMI) 50.0-59.9, adult Status: Acute Assessment and Plan: Weight loss is strongly encouraged. (6) Asthma exacerbation: Code(s): J45.901 - Unspecified asthma with (acute) exacerbation Status: Acute Assessment and Plan: - He is now on scheduled Albuterol 2.5 mg Nebs Q6h & scheduled Ipratropium 0.5 mg Nebs Q6h - started pulmicort 0.5 mg nebs Q12h - started prednisone 40 mg PO OD for 7 days then d/c - Switch to Symbicort 160/4.5 mcg 2 puffs Q12h via spacer device upon discharge home. Subjective Date/time seen: 10/08/19 21:22 This 53 yo man is seen in follow up for acute resp failure. He is on room air. He has a history of FENG, his device is old and does not work. We talked about getting his sleep issues addressed, and he wants to do this. We can follow him in the office setting, and arrange for his sleep needs. He says that he has wounds on his back side which were present before he was admitted to the hospital. Review of Systems Review of Systems: All systems reviewed & are unremarkable except as noted in HPI and below (HPI) Exam Const: General: no acute distress (sitting in a recliner watching TV, talking on the phone. ) Eyes: General: appearance normal, both eyes and all related structures Neck: Neck: no JVD Resp: Auscultation: diminished lung sounds Cardio: Rate: regular rate Rhythm: regular rhythm Skin: Other: lower limbs with chronic hypertrophic changes Neuro: Speech: normal speech Psych: Mental Status: mental status grossly normal Objective Data Vital Signs Vital Signs: Vital Signs - 24 hr 10/07/19 22:58 10/08/19 00:00 10/08/19 01:36 Temperature Pulse Rate 82 80 87 Respiratory Rate 26 H 17 Blood Pressure Pulse Oximetry 96 10/08/19 01:39 10/08/19 04:00 10/08/19 06:00 Temperature 37.0 C Pulse Rate 81 73 68 Respiratory Rate 17 20 Blood Pressure 137/70 Pulse Oximetry 97 100 10/08/19 08:57 10/08/19 08:58 10/08/19 09:11 Temperature Pulse Rate 82 79 Respiratory Rate 20 18 Blood Pressure Pulse Oximetry 93 10/08/19 12:00 10/08/19 14:18 10/08/19 14:49 Temperature 36.2 C L Pulse Rate 89 85 77 Respiratory Rate 18 26 H 18 Blood Press
[2019-10-08 23:16] LABS: Glucose Point of Care 88 (65-105)
[2019-10-09] VITALS (13 sets, daily range): BP systolic 146–164; BP diastolic 74–83; PULSE 78–86; RESP 16–20; TEMP 36.3–36.6; O2SAT 91–97
[2019-10-09] MEDS: IPRATROPIUM BR 0.02% INH SOLN 0.5 MG/2.5 ML VIAL INHALATION ×4 (01:05→19:45)
[2019-10-09] MEDS: ALBUTEROL SULFATE NEB 2.5 MG/0.5 ML INH INHALATION ×4 (01:05→19:44)
[2019-10-09 05:12] LABS: Hematocrit 33.8 % (42.0-52.0); Hemoglobin 10.4 g/dL (14.0-18.0); Mean Corpuscular HGB Conc 30.8 g/dl (32-36); Mean Corpuscular Hemoglobin 28.2 pg (26-34); Mean Corpuscular Volume 91.6 fl (80-100); Mean Platelet Volume 10.1 fl (7.4-10.4); Platelet Count Result 216 k/mm3 (150-375); Red Blood Count 3.69 M/mm3 (4.6-6.20); Red Cell Distribution Width 15.1 % (11.5-14.5); White Blood Count 8.3 K/mm3 (4.5-10.0)
[2019-10-09 05:14] LABS: Glucose Point of Care 112 (65-105)
[2019-10-09 05:26] LABS: Creatine Kinase 208 U/L (55-170)
[2019-10-09 06:59] LABS: Alanine Aminotransferase 82 U/L (4-50); Albumin Level 3.7 g/dL (3.5-5.1); Alkaline Phosphatase 88 U/L (38-126); Aspartate Amino Transferase 85 U/L (17-59); Bilirubin,Total 0.6 mg/dL (0.2-1.3); Blood Urea Nitrogen 19 mg/dL (9-20); Calcium 8.9 mg/dL (8.4-10.2); Carbon Dioxide 36 mmol/L (22-30); Chloride 94 mmol/L (98-107); Estimated CRCL calculation 234 ml/min; Estimated Glomerular Filt Rate > 60; Glucose 112 mg/dL (75-110); Magnesium 2.1 mg/dL (1.6-2.3); Potassium 3.5 mmol/L (3.4-5.0); Sodium 133 mmol/L (137-145)
[2019-10-09] MEDS: BUDESONIDE RESPULE NEB 0.5 MG/2 ML AMP INHALATION ×2 (08:42→19:45)
[2019-10-09] MEDS: predniSONE 20 MG TABLET 40 MG PO (08:55)
[2019-10-09] MEDS: ASPIRIN 81 MG ENTERIC TABLET PO (08:56)
[2019-10-09] MEDS: PANTOPRAZOLE 40 MG TABLET PO (08:56)
[2019-10-09] MEDS: SERTRALINE HCL 50 MG TABLET 100 MG PO (08:56)
[2019-10-09] MEDS: ENOXAPARIN 40 MG/0.4 ML SYRINGE SUB-Q (08:57)
[2019-10-09 11:44] LABS: Glucose Point of Care 148 (65-105)
--- NOTE | 2019-10-09 11:55 | PCPTNOTE ---
attempted PT treatment ~ 11:30; pt was sitting in his chair, reports have been up walking and busy all morning; did not want to walk at this time; his lunch just arrived and is hungry- wants to eat. And may be going home later today.
--- NOTE | 2019-10-09 12:53 | PM.PNPUL ---
Progress Note: A&P Assessment and Plan (1) Acute respiratory failure with hypoxia and hypercarbia: Code(s): J96.01 - Acute respiratory failure with hypoxia; J96.02 - Acute respiratory failure with hypercapnia Status: Acute (2) Obstructive sleep apnea on CPAP: Code(s): G47.33 - Obstructive sleep apnea (adult) (pediatric); Z99.89 - Dependence on other enabling machines and devices Status: Acute (3) CHF (congestive heart failure): Qualifiers: Heart failure chronicity: acute on chronic Heart failure type: diastolic Qualified Code(s): I50.33 - Acute on chronic diastolic (congestive) heart failure Code(s): I50.9 - Heart failure, unspecified Status: Acute (4) Bilateral lower extremity edema: Code(s): R60.0 - Localized edema Status: Acute (5) Class 3 severe obesity with body mass index (BMI) of 50.0 to 59.9 in adult: Code(s): E66.01 - Morbid (severe) obesity due to excess calories; Z68.43 - Body mass index (BMI) 50.0-59.9, adult Status: Acute (6) Asthma exacerbation: Qualifiers: Asthma persistence: persistent Asthma severity: severe Qualified Code(s): J45.51 - Severe persistent asthma with (acute) exacerbation Code(s): J45.901 - Unspecified asthma with (acute) exacerbation Status: Acute Assessment and Plan: - Outpatient Symbicort 160/4.5 mcg 2 puffs bid ordered - outpatient PFT ordered - f/u with us in pulmonary clinic in 6-8 weeks. Subjective Date/time seen: 10/09/19 12:53 Interval history: Feeling much better since starting scheduled nebs, prednisone. Eager to go home and recover there rather than rehab facility. Review of Systems Review of Systems: All systems reviewed & are unremarkable except as noted in HPI and below Exam Const: General: no acute distress (sitting in a recliner watching TV, talking on the phone. ) Eyes: General: appearance normal, both eyes and all related structures Neck: Neck: no JVD Resp: Auscultation: diminished lung sounds Cardio: Rate: regular rate Rhythm: regular rhythm Skin: Other: lower limbs with chronic hypertrophic changes Neuro: Speech: normal speech Psych: Mental Status: mental status grossly normal Objective Data Vital Signs Vital Signs: Vital Signs - 24 hr 10/08/19 14:18 10/08/19 14:49 10/08/19 16:00 Temperature Pulse Rate 85 77 87 Respiratory Rate 26 H 18 Blood Pressure Pulse Oximetry 96 10/08/19 19:25 10/08/19 19:28 10/08/19 19:40 Temperature Pulse Rate 78 78 Respiratory Rate 18 18 Blood Pressure Pulse Oximetry 93 10/08/19 21:24 10/08/19 23:45 10/09/19 01:05 Temperature 36.0 C L Pulse Rate 87 87 78 Respiratory Rate 20 16 18 Blood Pressure 140/65 Pulse Oximetry 94 96 10/09/19 01:15 10/09/19 02:02 10/09/19 05:31 Temperature 36.6 C Pulse Rate 79 84 80 Respiratory Rate 18 16 18 Blood Pressure 153/83 H Pulse Oximetry 97 93 10/09/19 08:42 10/09/19 08:58 Temperature Pulse Rate 86 86 Respiratory Rate 20 20 Blood Pressure Pulse Oximetry 91 Intake/Output Intake/Output: Intake & Output 10/06/19 10/07/19 10/08/19 10/09/19 23:59 23:59 23:59 23:59 Intake Total 4453 3862 3620 2080 Output Total 4450 1700 3875 1400 Balance 3 9473 -854 680 Meds/Results Medications: Active Medications Generic Name Dose Route Start Last Admin Trade Name Freq PRN Reason Stop Dose Admin Acetaminophen 650 mg 09/30/19 18:48 10/02/19 12:45 Tylenol Tablet PO 650 mg Q4H PRN Administration Mild Pain (1-3) or Fever Albuterol 2.5 mg 10/07/19 14:00 10/09/19 08:41 Albuterol Sulf Neb 2.5mg/0.5ml INHALATION 2.5 mg Q6HRT PAT Administration Aspirin 81 mg 10/01/19 09:00 10/09/19 08:56 Aspirin Ec PO 81 mg QAM PAT Administration Budesonide 0.5 mg 10/07/19 13:00 10/09/19 08:42 Pulmicort Respule Neb INHALATION 0.5 mg Q12HRT PAT Administration Dextrose 12.5 gm
--- NOTE | 2019-10-09 16:18 | PM.IMPN ---
Progress Note: A&P Assessment and Plan (1) Acute respiratory failure with hypoxia and hypercarbia: Code(s): J96.01 - Acute respiratory failure with hypoxia; J96.02 - Acute respiratory failure with hypercapnia Status: Acute Assessment and Plan: Patient is a 53-year-old morbidly obese male with history of hypertension obstructive sleep apnea on CPAP he decides [facility] initially he presented outside facility complaint of shortness of breath and symptoms were progressive getting worse based slight exertion he had difficulty catching his breath patient was evaluated the [place] emergency department and was found to have hypercapnic hypoxic respiratory failure he was transferred to and sent Hospital he was placed on BiPAP and monitored however on BiPAP symptoms were not improved repeat ABG showed worsening CO2 and confusion at that time was decided to intubate the patient by the sheet rock taper, patient is on vent, been tested for COVID-19 2 times and has been negative, most likely symptoms are due to hyperventilation due to morbid obesity and possibly underlining pulmonary hypertension pulmonary edema as well as pneumonia. 10/09/19 16:18 Asthma Exaxerbation that lead to respiratory failure in the setting of possible FENG/OHS. He says he's had Asthma since childhood and over the past few weeks he was getting more short of breath with chest tigness and wheezing. He was not on and ICS/LABA or ICS at home and was only on Albuterol as needed. Patient was extubated on 10/05 Patient seen by pulmonoligst, on 10/06 added pulmicort switch symbicort to twice a day spacer started on oral prednisone, and was transferred out of ICU, will continue PT/ot evaluation, today patient feeling much better not a short of breath however is very hungry has he been having clear liquid for last couple of days and would like to advance his diet, will advanced diet to full liquid and to heart healthy diet once tolerated, will continue to monitor, will have a PT OT evaluate the patient today patient able to ambulate 150 ft and his independent, he does desaturate with exertion and will need home oxygen, patient is clinically stable will discharge the patient home tomorrow (2) Obstructive sleep apnea on CPAP: Code(s): G47.33 - Obstructive sleep apnea (adult) (pediatric); Z99.89 - Dependence on other enabling machines and devices Status: Acute Assessment and Plan: extubated on 10/05 uses CPAP at night . (3) Morbid obesity: Code(s): E66.01 - Morbid (severe) obesity due to excess calories Status: Chronic Assessment and Plan: .Chronic problem (4) Essential hypertension: Code(s): I10 - Essential (primary) hypertension Status: Acute Assessment and Plan: still soft, will monitor and resume home medication (5) Anxiety and depression: Onset Date: ~2016 Code(s): F41.9 - Anxiety disorder, unspecified; F32.9 - Major depressive disorder, single episode, unspecified Status: Acute Assessment and Plan: will resume SSRI (6) Chest pain: Qualifiers: Chest pain type: unspecified Qualified Code(s): R07.9 - Chest pain, unspecified Code(s): R07.9 - Chest pain, unspecified Status: Inactive Assessment and Plan: Resolved Subjective Date/time seen: 10/09/19 16:18 Asthma Exaxerbation that lead to respiratory failure in the setting of possible FENG/OHS. He says he's had Asthma since childhood and over the past few weeks he was getting more short of breath with chest tigness and wheezing. He was not on and ICS/LABA or ICS at home and was only on Albuterol as needed. Patient was extubated on 10/05 Patikavitha
[2019-10-09 16:42] LABS: Glucose Point of Care 132 (65-105)
[2019-10-09] MEDS: hydrALAZINE HCL 20 MG/ML VIAL 10 MG IV PUSH (21:59)
[2019-10-09 22:05] LABS: Glucose Point of Care 108 (65-105)
[2019-10-10] VITALS (8 sets, daily range): BP systolic 134; BP diastolic 73; PULSE 79–118; RESP 16–18; TEMP 36.6; O2SAT 90–95
[2019-10-10] MEDS: ALBUTEROL SULFATE NEB 2.5 MG/0.5 ML INH INHALATION ×2 (00:59→08:17)
[2019-10-10] MEDS: IPRATROPIUM BR 0.02% INH SOLN 0.5 MG/2.5 ML VIAL INHALATION ×2 (00:59→08:17)
[2019-10-10 05:41] LABS: Hematocrit 35.5 % (42.0-52.0); Mean Corpuscular Hemoglobin 27.8 pg (26-34); Mean Corpuscular Volume 89.9 fl (80-100); Mean Platelet Volume 9.9 fl (7.4-10.4); Platelet Count Result 259 k/mm3 (150-375); Red Blood Count 3.95 M/mm3 (4.6-6.20); White Blood Count 8.3 K/mm3 (4.5-10.0)
[2019-10-10 05:55] LABS: Alanine Aminotransferase 87 U/L (4-50); Albumin Level 3.9 g/dL (3.5-5.1); Alkaline Phosphatase 92 U/L (38-126); Aspartate Amino Transferase 61 U/L (17-59); Bilirubin,Total 0.6 mg/dL (0.2-1.3); Blood Urea Nitrogen 17 mg/dL (9-20); Calcium 9.2 mg/dL (8.4-10.2); Carbon Dioxide 37 mmol/L (22-30); Chloride 95 mmol/L (98-107); Creatine Kinase 158 U/L (55-170); Estimated CRCL calculation 199 ml/min; Estimated Glomerular Filt Rate > 60; Glucose 115 mg/dL (75-110); Magnesium 2.1 mg/dL (1.6-2.3); Potassium 3.6 mmol/L (3.4-5.0); Sodium 139 mmol/L (137-145)
[2019-10-10 07:48] LABS: Glucose Point of Care 104 (65-105)
[2019-10-10] MEDS: BUDESONIDE RESPULE NEB 0.5 MG/2 ML AMP INHALATION (08:17)
--- NOTE | 2019-10-10 08:55 | PCRCNOTE ---
HOME O2 EVAL DONE, NO HOME O2 NEEDED AT THIS TIME. RN AWARE
--- NOTE | 2019-10-10 08:55 | HOMEO2EVAL ---
Home Oxygen Evaluation RC: Home Oxygen (O2) Evaluation Start: 10/09/19 15:12 Freq: ONCE Status: Active Protocol: RPE Activity Type Activity Date Activity User E-Sign Co-Sign Detail Recorded Client Recorded Date Recorded By Document 10/10/19 08:30 MAIA [email or web address] 10/10/19 08:54 MAIA Document 10/10/19 08:35 MAIA [email or web address] 10/10/19 08:54 MAIA Document 10/10/19 08:50 MAIA [email or web address] 10/10/19 08:54 MAIA 10/10/19 10/10/19 10/10/19 08:30 08:35 08:50 Home O2 Evaluation Test Phase Resting Exercise Resting Oxygen Delivery Room Air Room Air Room Air Pulse Oximetry (90-100 %) 94 90 95 Pulse Rate (60-100 beats/min) 92 118 H 95 Treatment Charges O2 Evaluation
[2019-10-10] MEDS: predniSONE 20 MG TABLET 40 MG PO (08:58)
[2019-10-10] MEDS: PANTOPRAZOLE 40 MG TABLET PO (08:58)
[2019-10-10] MEDS: ASPIRIN 81 MG ENTERIC TABLET PO (08:58)
[2019-10-10] MEDS: SERTRALINE HCL 50 MG TABLET 100 MG PO (08:59)
[2019-10-10] MEDS: ENOXAPARIN 40 MG/0.4 ML SYRINGE SUB-Q (08:59)
[2019-10-10 11:20] LABS: Glucose Point of Care 121 (65-105)
--- NOTE | 2019-10-10 11:21 | PCNFU ---
Nutrition Follow-Up Complete: Inadequate oral intake related to oral intubation as evidenced by NPO status. Goal: Patient to meet estimated nutritional needs. Patient has met goal. No new goal. Pt current nutrition is Heart Healthy. Nutrition recommendation:Agree Last recorded weight is 175 kg. Bowel Motility:+BM reported 10/08 Labs Reviewed:Glu 115,Hct 35.5,Hgb 11.0 Meds Noted:Lovenox Additional Notes: Patient seen today for nutrition follow up. He states to no diet questions or concerns-patient instruction attached. He is eating 100% of heart healthy diet. He states he is going to try and start meal prepping when he returns home as he states to eating large portions of foods and loves to cook. Plans for discharge today. Monitoring: Follow up every 7 days.
--- NOTE | 2019-10-10 12:16 | PM.DS ---
DS: Admitting Diagnosis Admitting Diagnosis Admitting Diagnosis: Acute respiratory failure with hypoxia DS: Discharge Diagnosis Discharge Diagnosis (1) Acute respiratory failure with hypoxia and hypercarbia: Code(s): J96.01 - Acute respiratory failure with hypoxia; J96.02 - Acute respiratory failure with hypercapnia Status: Acute Assessment and Plan: Patient is a 53-year-old morbidly obese male with history of hypertension obstructive sleep apnea on CPAP he decides knees [facility] initially he presented outside facility complaint of shortness of breath and symptoms were progressive getting worse based slight exertion he had difficulty catching his breath patient was evaluated the [place] emergency department and was found to have hypercapnic hypoxic respiratory failure he was transferred to and sent Hospital he was placed on BiPAP and monitored however on BiPAP symptoms were not improved repeat ABG showed worsening CO2 and confusion at that time was decided to intubate the patient by the rug layer, patient is on vent, been tested for COVID-19 2 times and has been negative, most likely symptoms are due to hyperventilation due to morbid obesity and possibly underlining pulmonary hypertension pulmonary edema as well as pneumonia. 10/09/19 16:18 Asthma Exaxerbation that lead to respiratory failure in the setting of possible FENG/OHS. He says he's had Asthma since childhood and over the past few weeks he was getting more short of breath with chest tigness and wheezing. He was not on and ICS/LABA or ICS at home and was only on Albuterol as needed. Patient was extubated on 10/05 Patient seen by pulmonoligst, on 10/06 added pulmicort switch symbicort to twice a day spacer started on oral prednisone, and was transferred out of ICU, will continue PT/ot evaluation, today patient feeling much better not a short of breath however is very hungry has he been having clear liquid for last couple of days and would like to advance his diet, will advanced diet to full liquid and to heart healthy diet once tolerated, will continue to monitor, will have a PT OT evaluate the patient today patient able to ambulate 150 ft and his independent, he does desaturate with exertion and will need home oxygen, patient is clinically stable will discharge the patient home tomorrow (2) Obstructive sleep apnea on CPAP: Code(s): G47.33 - Obstructive sleep apnea (adult) (pediatric); Z99.89 - Dependence on other enabling machines and devices Status: Acute Assessment and Plan: extubated on 10/05 uses CPAP at night . (3) Morbid obesity: Code(s): E66.01 - Morbid (severe) obesity due to excess calories Status: Chronic Assessment and Plan: .Chronic problem (4) Essential hypertension: Code(s): I10 - Essential (primary) hypertension Status: Acute Assessment and Plan: still soft, will monitor and resume home medication (5) Anxiety and depression: Onset Date: ~2016 Code(s): F41.9 - Anxiety disorder, unspecified; F32.9 - Major depressive disorder, single episode, unspecified Status: Acute Assessment and Plan: will resume SSRI (6) Chest pain: Qualifiers: Chest pain type: unspecified Qualified Code(s): R07.9 - Chest pain, unspecified Code(s): R07.9 - Chest pain, unspecified Status: Inactive Assessment and Plan: Resolved DS: Summary Hospital Course Reason for hospitalization: Justo Hancock JrLulu is a very pleasant 53-year-old male with obstructive sleep apnea on CPAP at nighttime, hypertension, GERD, borderline diabetes, and morbid obesity who is being directly admitted from the
[2019-10-10] MEDS: NEOMYCIN/POLYMYXIN/BACITRACIN OINTMENT PACKET 1 PACKET (13:13)
--- NOTE | 2019-10-10 13:14 | PM.PNPUL ---
Progress Note: A&P Assessment and Plan (1) Acute respiratory failure with hypoxia and hypercarbia: Code(s): J96.01 - Acute respiratory failure with hypoxia; J96.02 - Acute respiratory failure with hypercapnia Status: Acute (2) Obstructive sleep apnea on CPAP: Code(s): G47.33 - Obstructive sleep apnea (adult) (pediatric); Z99.89 - Dependence on other enabling machines and devices Status: Acute (3) CHF (congestive heart failure): Qualifiers: Heart failure type: diastolic Heart failure chronicity: acute on chronic Qualified Code(s): I50.33 - Acute on chronic diastolic (congestive) heart failure Code(s): I50.9 - Heart failure, unspecified Status: Acute (4) Bilateral lower extremity edema: Code(s): R60.0 - Localized edema Status: Acute (5) Class 3 severe obesity with body mass index (BMI) of 50.0 to 59.9 in adult: Qualifiers: Obesity type: with alveolar hypoventilation Serious obesity comorbidity presence: with serious comorbidity Qualified Code(s): E66.2 - Morbid (severe) obesity with alveolar hypoventilation; Z68.43 - Body mass index (BMI) 50.0-59.9, adult Code(s): E66.01 - Morbid (severe) obesity due to excess calories; Z68.43 - Body mass index (BMI) 50.0-59.9, adult Status: Acute (6) Asthma exacerbation: Qualifiers: Asthma severity: severe Asthma persistence: persistent Qualified Code(s): J45.51 - Severe persistent asthma with (acute) exacerbation Code(s): J45.901 - Unspecified asthma with (acute) exacerbation Status: Acute Assessment and Plan: - Outpatient Symbicort 160/4.5 mcg 2 puffs bid ordered - outpatient PFT ordered - f/u with us in pulmonary clinic in 6-8 weeks. Time Spent With Patient Time with patient: 15 - 25 minutes Subjective Date/time seen: 10/10/19 13:14 Interval history: Feeling well. Being discharged home. Understands that he needs to remain on Symbicort with spacer device as prescribed as well as PRN albuterol. Understands that he will get outpatient sleep study so that he can have a properly fitted mask and properly titrated pressures. This will give the greatest chance for compliance Review of Systems Review of Systems: All systems reviewed & are unremarkable except as noted in HPI and below Exam Const: General: no acute distress (sitting in a recliner watching TV, talking on the phone. ) Eyes: General: appearance normal, both eyes and all related structures Neck: Neck: no JVD Resp: Auscultation: diminished lung sounds Cardio: Rate: regular rate Rhythm: regular rhythm Skin: Other: lower limbs with chronic hypertrophic changes Neuro: Speech: normal speech Psych: Mental Status: mental status grossly normal Objective Data Vital Signs Vital Signs: Vital Signs - 24 hr 10/09/19 13:48 10/09/19 13:57 10/09/19 14:32 Temperature 36.3 C L Pulse Rate 78 85 83 Respiratory Rate 20 20 18 Blood Pressure 146/74 H Pulse Oximetry 92 10/09/19 19:45 10/09/19 19:48 10/09/19 21:03 Temperature 36.4 C Pulse Rate 82 83 Respiratory Rate 20 16 Blood Pressure 164/78 H Pulse Oximetry 92 95 10/09/19 23:00 10/10/19 01:00 10/10/19 01:10 Temperature Pulse Rate 79 79 81 Respiratory Rate 17 18 18 Blood Pressure Pulse Oximetry 94 10/10/19 06:04 10/10/19 08:20 10/10/19 08:30 Temperature 36.6 C Pulse Rate 79 79 92 Respiratory Rate 16 18 Blood Pressure 134/73 Pulse Oximetry 92 92 94 10/10/19 08:32 10/10/19 08:35 10/10/19 08:50 Temperature Pulse Rate 87 118 H 95 Respiratory Rate 18 Blood Pressure Pulse Oximetry 90 95 Intake/Output Intake/Output: Intake & Output 10/07/19 10/08/19 10/09/19 10/10/19 23:59 23:59 23:59 23:59 Intake Total 3862 3620 3920 1460 Output Total 1700 3875 2800 800 Balance 2162 -255 1120 660 Meds/Results Medications: Active Medications Generic Name Dose Route Start Last Admin Trade Name F
--- NOTE | 2019-10-10 14:11 | PC.NURSE ---
Pt did not have a belongings list to verify belongings, pt did confirm that he had his wallet and liu that he came into the hospital with. Clothes, cell phone and health services coordinator noted to be here and with the pt upon discharge.
== END 2019-10-10 14:13 | disposition home or self-care (01) | DRG 208 ==
LOC: ANHIMU 21:45 → ANHICU 10-01 01:56 → ANH3MEDSUR 10-07 16:54 → ANH3MED 10-07 17:12
PROVIDERS: Family Medicine; Internal Medicine; Physician Assistant; Admitting Provider Family Medicine; PCP Nurse Practitioner Family; Visit Provider Family Medicine
DX: J45.51 Severe persistent asthma with (acute) exacerbation (principal); J96.21 Acute and chronic respiratory failure with hypoxia; I50.33 Acute on chronic diastolic (congestive) heart failure; J18.9 Pneumonia, unspecified organism; J96.22 Acute and chronic respiratory failure with hypercapnia; E66.2 Morbid (severe) obesity with alveolar hypoventilation; Z68.43 Body mass index [BMI] 50.0-59.9, adult; M62.82 Rhabdomyolysis; J98.11 Atelectasis; T50.2X5A Adverse effect of carbonic-anhydrase inhibitors, benzothiadiazides and other diuretics, initial encounter; E87.6 Hypokalemia; I11.0 Hypertensive heart disease with heart failure; I27.20 Pulmonary hypertension, unspecified; F41.9 Anxiety disorder, unspecified; F32.9 Major depressive disorder, single episode, unspecified; K21.9 Gastro-esophageal reflux disease without esophagitis; R73.03 Prediabetes; G62.9 Polyneuropathy, unspecified
CPT/HCPCS: 36415; 36569; 36600; 71045; 76705; 80048; 80053; 80061; 80074; 80202; 81001; 82375; 82550; 82565; 82805; 83050; 83735; 84443; 84484; 85025; 85027; 87070; 87205; 93306; 93970; 94002; 94003; 94618; 94640; 94660; 97110; 97116; 97162; 97165; 97530; 97535; A9270; C1751; J0360; J0692; J1650; J1940; J2250; J2704; J3010; J3370; J7120; J7512

== ENCOUNTER 2019-10-22 11:16 | Outpatient (CLI) | payer BC, SELFPAY ==
[2019-10-22 11:54] LABS: BNP 54.3 pg/mL (0-100)
[2019-10-22 13:05] LABS: Alanine Aminotransferase 25 U/L (16-63); Albumin Level 3.9 g/dL (3.4-5.0); Alkaline Phosphatase 73 U/L (46-116); Anion Gap 11.3 mmol/L (7-16); Aspartate Amino Transferase 17 U/L (15-37); Bilirubin,Total 0.7 mg/dL (0.00-1.00); Blood Urea Nitrogen 11 mg/dL (7-18); Calcium 9.4 mg/dL (8.5-10.1); Carbon Dioxide 35 mmol/L (21-32); Chloride 98 mmol/L (98-108); Estimated Glomerular Filt Rate > 60; Glucose 92 mg/dL (70-99); Osmolality Calculated 289 mOsm/kg (285-295); Potassium 4.3 mmol/L (3.5-5.1); Sodium 140 mmol/L (136-145); Total Protein 7.8 g/dL (6.4-8.2)
== END 2019-10-22 11:17 | disposition home or self-care (01) ==
PROVIDERS: PCP Nurse Practitioner Family
DX: I50.32 Chronic diastolic (congestive) heart failure (principal); G47.33 Obstructive sleep apnea (adult) (pediatric); J45.909 Unspecified asthma, uncomplicated; E66.01 Morbid (severe) obesity due to excess calories; I10 Essential (primary) hypertension
CPT/HCPCS: 36415; 80053; 83880

== ENCOUNTER 2019-11-24 08:01 | Outpatient (CLI) | payer BC, SELFPAY ==
--- NOTE | ~2019-11-24 | US_ITS ---
EXAMINATION:US venous doppler LE BI INDICATION:Leg edema TECHNIQUE: Multiple grayscale, color flow and Doppler images of the bilateral lower extremity deep ve nous systems were obtained and reviewed. Patient could not tolerate standing examination for evaluati on of venous reflux. COMPARISON:10/01/2019 FINDINGS: The common femoral, superficial femoral and popliteal veins demonstrate normal respiratory variation, augmentation and compressibility. Color flow is also seen within the greater saphenous an d profunda veins. The right peroneal, left posterior tibial and peroneal veins are not visualized due to patient body habitus. IMPRESSION: 1: No lower extremity deep venous thrombosis. Reviewed, dictated and finalized at location B.
--- NOTE | 2019-11-24 10:30 | EST_ITS ---
Patient Info Name: Justo Hancock Age: 54 years : 1965 Gender: Male Ht: 72 in Wt: 360 lbs BSA: 2.96 m2 HR: 72 bpm BP: 159 / 62 mmHg Heart Rhythm: Sinus Rhythm Technical Quality: Excellent Exam Date: 11/24/2019 10:29 AM Exam Location: [facility] Patient Status: Outpatient Admit Date: 11/24/2019 Staff Ordering Physician: Sadi, Woo RICKS Attending Provider: River FRAIRE CEP Exercise Technologist: Katerina Molina CRT Exercise Physician: Etelvina Fraire CEP Exam Type: CA stress sergio w NM Study Info Indications HTN, AFIB, Edema, SOB - A nuclear stress test was performed. History/Risk Factors Hypertension: Yes History/Risk Factors HTN, A FIb, Edema, Dyspnea. Summary 1. 1. Negative Lexiscan stress test for ischemic ST changes by ECG criteria. 2. 2. Baseline hypertension. 3. 3. Nuclear scan to follow and will be reported separately. Please correlate with it. Protocol: LEXISCAN Stress ECG Details Stage: REST Duration (min): 4 min : 51 sec HR (bpm): 73 SBP (mmHg): 159 DBP (mmHg): 62 Stage: REST Duration (min): 5 min : 44 sec HR (bpm): 74 SBP (mmHg): 159 DBP (mmHg): 62 Stage: STAGE 1 Duration (min): 0 min : 13 sec HR (bpm): 75 SBP (mmHg): 159 DBP (mmHg): 62 Stage: RECOVERY Duration (min): 0 min : 46 sec HR (bpm): 80 SBP (mmHg): 159 DBP (mmHg): 62 Stage: RECOVERY Duration (min): 1 min : 46 sec HR (bpm): 87 SBP (mmHg): 159 DBP (mmHg): 62 Stage: RECOVERY Duration (min): 2 min : 46 sec HR (bpm): 85 SBP (mmHg): 140 DBP (mmHg): 52 Stage: RECOVERY Duration (min): 3 min : 46 sec HR (bpm): 81 SBP (mmHg): 136 DBP (mmHg): 53 Stage: RECOVERY Duration (min): 4 min : 46 sec HR (bpm): 80 SBP (mmHg): 136 DBP (mmHg): 53 Stage: RECOVERY Duration (min): 5 min : 46 sec HR (bpm): 82 SBP (mmHg): 135 DBP (mmHg): 50 Stage: RECOVERY Duration (min): 6 min : 4 sec HR (bpm): 80 SBP (mmHg): 135 DBP (mmHg): 50 Rest HR: 74 bpm Peak HR: 88 bpm Rest Sys BP: 159 mmHg Peak Sys BP: 140 mmHg Max Pred HR: 167 bpm % Max Pred HR: 53 % Target HR: 142 bpm Max RPP: 12,320 bpm*mmHg Target HR Summary: Test terminated after reaching 61% THR BP Response: Resting hypertension, Appropriate response Termination Reason: Completed protocol Cardiac Symptoms: None Total Time: 0 min : 13 sec Rest Castrejon BP: 62 mmHg Peak Castrejon BP: 52 mmHg Total Dose: 0.4 mg Resting ECG Normal sinus rhythm - normal ECG. Stress ECG No abnormal ST/T wave changes with exercise. Arrhythmias No arrhythmias were observed during the examination. Report Signatures
== END 2019-11-24 08:02 | disposition home or self-care (01) ==
PROVIDERS: PCP Nurse Practitioner Family; Visit Provider Internal Medicine Cardiovascular Disease
DX: R60.9 Edema, unspecified (principal); I48.91 Unspecified atrial fibrillation; I50.30 Unspecified diastolic (congestive) heart failure; I11.0 Hypertensive heart disease with heart failure
CPT/HCPCS: 78452; 93017; 93970; A9502; J2785

== ENCOUNTER 2019-12-07 22:25 | Emergency (ER) | payer BC, SELFPAY ==
--- NOTE | 2019-12-07 22:55 | ED.WOUNDLAC ---
HPI - Wound/Laceration General Chief Complaint: Wound/Laceration Stated Complaint: finger laceration Time Seen by Provider: 12/07/19 22:55 Source: patient Mode of arrival: ambulatory Limitations: no limitations History of Present Illness HPI narrative: 54-year-old man on Xarelto for atrial fibrillation comes in today complaining of laceration to his left index finger. This happened about 6 pm and a cut with a knife while slicing tomatoes. He states he has been unable to get the bleeding to stop since then. He cannot remember his last tetanus shot. Onset (ago): hour(s) (4) Extremity Location: Left: hand ( Index finger tip) Place: home Patient tetanus UTD: No Context: accidental Associated symptoms: pain Treatments prior to arrival: bandage Related Data Home Medications Medication Instructions Recorded Confirmed albuterol sulfate 2 puff INHALATION QID PRN 09/30/19 09/30/19 Allergies Allergy/AdvReac Type Severity Reaction Status Date / Time Penicillins AdvReac unknown Verified 09/19/19 11:54 Review of Systems Constitutional: Constitutional: Denies chills and Denies fever(s) ENT: Denies dysphagia, Denies nasal congestion and Denies sore throat Cardiovascular: Cardiovascular: Denies chest pain and Denies radiating jaw, neck or arm pain Respiratory: Respiratory: Denies cough, Denies dyspnea and Denies wheezing Integumentary/Breasts: Skin/Breast: Reports as per HPI, Denies pruritus, Denies erythema and Denies rash Neurologic: Denies vertigo, Denies dizziness and Denies syncope Psychiatric: Psychiatric: Denies anxiety and Denies depression Hematologic/Lymphatic: Hematologic/Lymphatic: Reports easy bleeding and Denies easy bruising Allergic/Immunologic: Allergic/Immunologic: Denies lip swelling and Denies wheezing PMFSH Past Medical History Medical History Anxiety and depression (~2017) Borderline diabetes Hemoglobin A1c in 2020 was 6.1%. Class 3 severe obesity with body mass index (BMI) of 50.0 to 59.9 in adult Essential hypertension Obstructive sleep apnea on CPAP Peripheral neuropathy Surgical History Surgical History History of appendectomy History of arthroscopy of right knee History of right inguinal hernia repair Social History Social History Social History: The patient lives in his own home in [place], [place]. 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 He is a lifelong nonsmoker. He drinks alcohol socially and in moderation. He denies drug use. He designates his significant other, Martita Fernández, is his surrogate decision maker and he wishes to be a full code. 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 Resp: Effort & Inspection: normal respiratory effort and not labored Auscultation: clear to auscultation bilaterally, no crackles, no rales and no rhonchi Cardio: Rate: regular rate Rhythm: regular rhythm Heart sounds: no murmurs Skin: General skin exam: normal color, no jaundice and no pallor Rashes: no rashes Other: 1 x 1.5 cm avulsion of the skin on the left index finger tip. There is oozing blood. Nailplate and Nail bed are uninvolved. Neuro: General: patient oriented x3, moves all extremities, no focal motor deficits and CN's II-XI intact bilaterally Speech: normal speech Gait exam (Neuro): Normal gait present Extrem: General: normal to inspection and no clubbing, cyanosis or edema Psych: Appearance: grossly normal and well kempt Mental Status: mental status grossly no
[2019-12-07 23:12] VITALS: BP 150/80; PULSE 80; RESP 18; TEMP 37.1; O2SAT 98
[2019-12-07] MEDS: TETANUS,DIPHTHERIA,AC PERTUSSIS ADULT 0.5 ML (ADACEL) IM (23:22)
[2019-12-07] MEDS: NEOMYCIN/POLYMYXIN/BACITRACIN OINTMENT PACKET 1 PACKET (23:22)
[2019-12-07 23:40] VITALS: BP 140/70; PULSE 80; RESP 18; TEMP 36.6
== END 2019-12-07 23:41 | disposition home or self-care (01) ==
PROVIDERS: Emergency Provider Emergency Medicine; PCP Nurse Practitioner Family
DX: S61.211A Laceration without foreign body of left index finger without damage to nail, initial encounter (principal); W26.0XXA Contact with knife, initial encounter
CPT/HCPCS: 73140; 90471; 90715; 99283

== ENCOUNTER → 2020-05-03 12:30 | Outpatient (CLI) | payer BC, SELFPAY ==
--- NOTE | ~2020-05-03 | CT_ITS ---
EXAMINATION: CT chest wo con DATE: 05/03/2020 12:54 INDICATION: Restrictive lung disease TECHNIQUE: Computed tomography (CT) of the chest was performed without intravenous contrast. The dose -length product was 782.19 mGy-cm. Automated exposure control and iterative reconstruction technique were employed. COMPARISON: Chest dated 10/07/2019 FINDINGS: Heart size normal. No significant pleural or pericardial effusion. There is gynecomastia. T here is mediastinal lipomatosis. No thoracic lymphadenopathy. No significant abnormality of the aorta . Mild atherosclerosis. There are calcified granulomas of the spleen. Calcified granuloma of the righ t lower lobe. Calcified right hilar lymph nodes. No focal airspace consolidation. No endobronchial le sions. No suspicious pulmonary nodules or masses. No acute osseous abnormality. No osteolytic or aislinn tic lesions. IMPRESSION: 1. No acute cardiopulmonary disease. 2: Gynecomastia. Reviewed, dictated and finalized at location A. ISTICAL ASSISTANT
== END ==
PROVIDERS: PCP Nurse Practitioner Family; Visit Provider Nurse Practitioner
DX: J98.4 Other disorders of lung (principal); N62 Hypertrophy of breast
CPT/HCPCS: 71250

== ENCOUNTER 2020-08-04 12:25 | Outpatient (CLI) | payer OTHER, MEDICAID, SELFPAY ==
--- NOTE | ~2020-08-04 | XR_ITS ---
XR knee LT min 4V DATE: 08/04/2020 13:29 INDICATION: Fall one week ago. Anterior knee pain. TECHNIQUE: 4 views COMPARISON: None FINDINGS: Diffuse osteopenia. Tricompartment osteoarthritis, most severe at the medial and patellofemoral compartments. There is suprapatellar knee joint effusion. No fracture or dislocation, periosteal reaction or bone destruction, radiopaque intra-articular loose body or chondrocalcinosis is detected. There is patellar enthesopathy at the insertions of the quadriceps and patellar tendons. 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 IMPRESSION: Tricompartment osteoarthritis, severe at the medial and patellofemo ral compartments Diffuse osteopenia Knee joint effusion
[2020-08-04 13:00] LABS: Basophils Absolute Auto 0.03 K/mm3 (0.00-0.10); Basophils Percent Auto 0.4 % (0.0-1.0); Eosinophils Absolute Auto 0.36 K/mm3 (0.02-0.50); Eosinophils Percent Auto 4.9 % (1.0-6.0); Hematocrit 37.8 % (40.0-54.0); Hemoglobin 11.8 g/dL (14.0-18.0); Immature Granulocyte Absolute 0.08 K/mm3 (0.00-0.00); Immature Granulocyte Percent A 1.1 % (0.0-0.0); Lymphocytes Absolute Auto 0.65 K/mm3 (1.10-4.50); Lymphocytes Percent Auto 8.9 % (18.0-42.0); Mean Corpuscular HGB Conc 31.2 g/dL (32.0-36.0); Mean Corpuscular Hemoglobin 28.3 pg (27.0-31.0); Mean Corpuscular Volume 90.6 fL (78.0-102.0); Mean Platelet Volume 9.7 fl (8.7-11.0); Monocytes Absolute Auto 0.44 K/mm3 (0.10-0.90); Neutrophils Absolute Auto 5.8 K/mm3 (1.7-7.2); Neutrophils Percent Auto 78.7 % (50.0-70.0); Platelet Count Result 174 K/mm3 (150-420); Red Blood Count 4.17 M/mm3 (4.70-6.10); Red Cell Distribution Width 15.4 % (11.6-14.4); White Blood Count 7.3 K/mm3 (4.8-10.8)
[2020-08-04 13:04] LABS: Add Urine Microscopic? YES; Appearance Urine Clear (Clear); Bilirubin Urine Negative (Negative); Blood Urine 1+ (Negative); Color Urine Yellow (Yellow); Glucose Urine UA Negative (Negative); Ketones Urine Negative (Negative); Leukocyte Esterase Ur Negative LEU/UL (Negative); Nitrate Urine Negative (Negative); Protein Urine Negative (Negative); Urobilinogen Urine 0.2 mg/dL (0.2-1.0)
[2020-08-04 13:11] LABS: RBC Urine 0-2 /hpf (0-2); WBC Urine 0-3 /hpf (0-3)
[2020-08-04 13:12] LABS: Bacteria Urine Trace /hpf; Squamous Epithelial Cell Urine Few /hpf (Few)
[2020-08-04 13:13] LABS: Creatinine Urine 169.55 mg/dL (40-278); MALB Creatinine Ratio 31.2 mg/g (0-30); Microalbumin Urine Random 52.9 mg/L
[2020-08-04 13:24] LABS: Hemoglobin A1C 5.7 % (<5.7)
[2020-08-04 14:17] LABS: Alanine Aminotransferase 24 U/L (16-63); Albumin Level 3.6 g/dL (3.4-5.0); Alkaline Phosphatase 83 U/L (46-116); Anion Gap 7 mmol/L (8-16); Aspartate Amino Transferase 12 U/L (15-37); Bilirubin,Total 0.4 mg/dL (0.00-1.00); Blood Urea Nitrogen 18 mg/dL (7-18); Calcium 8.6 mg/dL (8.5-10.1); Carbon Dioxide 33 mmol/L (21-32); Chloride 94 mmol/L (98-108); Cholesterol 226 mg/dL (0-200); Estimated Glomerular Filt Rate > 60; Free T4 Free Thyroxine 0.82 ng/dL (0.76-1.46); Glucose 102 mg/dL (70-99); HDL Direct 65 mg/dL (40-60); LDL Cholesterol Calculated 142 mg/dL (<130); Osmolality Calculated 279 mOsm/kg (285-295); Potassium 4.2 mmol/L (3.5-5.1); Sodium 134 mmol/L (136-145); Thyroid Stimulating Hormone 1.79 uIU/mL (0.36-3.74); Total Protein 7.7 g/dL (6.4-8.2); Triglycerides 96 mg/dL (0-150); Vitamin B12 662 pg/mL (193-986)
[2020-08-04 14:22] LABS: Folic Acid > 20.0 ng/mL (8.6->20)
[2020-08-06 12:26] LABS: Vitamin D 25 Hydroxy 30 ng/mL (30-100)
== END 2020-08-04 12:26 | disposition home or self-care (01) ==
LOC: CHSLAB 12:30
PROVIDERS: PCP Nurse Practitioner Family; Visit Provider Nurse Practitioner Family
DX: S89.92XA Unspecified injury of left lower leg, initial encounter (principal); E53.8 Deficiency of other specified B group vitamins; E55.9 Vitamin D deficiency, unspecified; E66.01 Morbid (severe) obesity due to excess calories; E11.9 Type 2 diabetes mellitus without complications; I10 Essential (primary) hypertension
CPT/HCPCS: 36415; 73564; 80053; 80061; 81001; 82043; 82306; 82607; 82746; 83036; 84439; 84443; 85025

== ENCOUNTER 2020-09-17 11:51 | Outpatient (CLI) | payer OTHER, MEDICAID, SELFPAY ==
[2020-09-17 12:41] LABS: Iron 64 ug/dL (65-175); Percent Iron Saturation 18 % (12-57)
== END 2020-09-17 11:52 | disposition home or self-care (01) ==
LOC: CHSLAB 11:54
PROVIDERS: PCP Nurse Practitioner Family; Visit Provider Nurse Practitioner Family
DX: D64.9 Anemia, unspecified (principal)
CPT/HCPCS: 36415; 83540; 83550

== ENCOUNTER 2020-10-15 12:26 | Outpatient (CLI) | payer OTHER, SELFPAY ==
--- NOTE | ~2020-10-15 | CT_ITS ---
EXAMINATION: CT abdomen pelvis wo con EXAM DATE: 10/15/2020 13:08 INDICATION: Ventral hernia lump @umbilical region x3wks w/ N/V (worse x3days). TECHNIQUE: Spiral CT of the abdomen and pelvis was performed without contrast. Axial, coronal and s agittal images of the abdomen and pelvis were reviewed. The dose-length product (DLP) for this exami [facility] was 1591.16 mGy-cm. The exposure was tailored according to patient size (auto mA exposure con trol), and iterative reconstruction (ASIR) was used as additional dose reduction technique. There is no prior study for comparison. FINDINGS: Patient's abdominal subcutaneous fat was collimated off the study, however the abdominal wa ll was completely imaged and there is no evidence of abdominal wall hernia. Umbilicus is unremarkable . The liver, spleen, adrenal glands and pancreas are unremarkable. Gallbladder is unremarkable. No biliary obstruction. There is no nephrolithiasis or hydronephrosis. The prostate is unremarkable. The bladder is unremarkable. There is no retroperitoneal or pelvic lymphadenopathy. The appendix is not positively visualized. There is no pericecal inflammatory change to suggest appe ndicitis. The stomach and small bowel are unremarkable. There is expected amount of colonic stool. No free intraperitoneal gas. The heart is normal in size. There are no pericardial or pleural e ffusions. The lung bases are unremarkable. There are no osteoblastic or osteolytic lesions identifi ed. IMPRESSION: 1. Unremarkable CT abdomen pelvis exam. Reviewed, dictated and finalized at location B.
[2020-10-17 22:52] LABS: Albumin 4.4 g/dL (3.8-4.8); Alpha 1 Globulin 0.4 g/dL (0.2-0.3); Alpha 2 Globulin 0.8 g/dL (0.5-0.9); Beta 1 Globulin 0.6 g/dL (0.4-0.6); Gamma Globulin 1.5 g/dL (0.8-1.7); Protein, Total 8.1 g/dL (6.1-8.1)
[2020-10-21 05:10] LABS: Creatinine, Random Urine 32 mg/dL (20-320); Total Protein/Creatinine Ratio 281 mg/g creat (22-128)
== END 2020-10-15 12:27 | disposition home or self-care (01) ==
LOC: CHSIMG 12:27
PROVIDERS: PCP Nurse Practitioner Family; Visit Provider Nurse Practitioner Family
DX: R77.9 Abnormality of plasma protein, unspecified (principal); K43.9 Ventral hernia without obstruction or gangrene
CPT/HCPCS: 36415; 74176; 82570; 84155; 84156; 84165; 84166

== ENCOUNTER 2020-10-19 12:02 | Outpatient (CLI) | payer OTHER, SELFPAY ==
--- NOTE | ~2020-10-19 | US_ITS ---
EXAMINATION: US retroperitoneal comp EXAM DATE: 10/19/2020 12:51 INDICATION: Blood in urine . TECHNIQUE: Multiple grayscale and Doppler images of the kidneys were obtained (by a technologist who performed the scan) and subsequently reviewed. Correlation was made with CT abdomen pelvis 10/15/2020. . FINDINGS: Right kidney: There is normal contour and echogenicity. It measures 11.6 x 6.1 x 6.7 centimeters. T here are no focal renal lesions identified. There is no hydronephrosis. Left kidney: There is normal contour and echogenicity. It measures 12.4 x 6.6 x 7.5 centimeters. Th ere are no focal renal lesions identified. There is no hydronephrosis. Bladder unremarkable. IMPRESSION: 1. Sonographically unremarkable kidneys. Reviewed, dictated and finalized at location A.
== END 2020-10-19 12:03 | disposition home or self-care (01) ==
LOC: CHSIMG 12:04
PROVIDERS: PCP Nurse Practitioner Family; Visit Provider Nurse Practitioner Family
DX: R31.9 Hematuria, unspecified (principal)
CPT/HCPCS: 76770

== ENCOUNTER 2020-11-30 10:59 | Outpatient (CLI) | payer OTHER, SELFPAY ==
[2020-11-30 11:16] LABS: Add Urine Microscopic? YES; Appearance Urine Clear (Clear); Basophils Absolute Auto 0.02 K/mm3 (0.00-0.10); Basophils Percent Auto 0.2 % (0.0-1.0); Bilirubin Urine Negative (Negative); Blood Urine 2+ (Negative); Color Urine Yellow (Yellow); Eosinophils Absolute Auto 0.35 K/mm3 (0.02-0.50); Eosinophils Percent Auto 4.1 % (1.0-6.0); Glucose Urine UA Negative (Negative); Hematocrit 39.2 % (40.0-54.0); Hemoglobin 12.9 g/dL (14.0-18.0); Immature Granulocyte Absolute 0.05 K/mm3 (0.00-0.00); Immature Granulocyte Percent A 0.6 % (0.0-0.0); Ketones Urine Negative (Negative); Leukocyte Esterase Ur Negative LEU/UL (Negative); Lymphocytes Absolute Auto 0.95 K/mm3 (1.10-4.50); Mean Corpuscular HGB Conc 32.9 g/dL (32.0-36.0); Mean Corpuscular Hemoglobin 29.9 pg (27.0-31.0); Mean Platelet Volume 9.9 fl (8.7-11.0); Monocytes Absolute Auto 0.43 K/mm3 (0.10-0.90); Neutrophils Absolute Auto 6.8 K/mm3 (1.7-7.2); Neutrophils Percent Auto 79.1 % (50.0-70.0); Nitrate Urine Negative (Negative); Platelet Count Result 202 K/mm3 (150-420); Protein Urine 2+ (Negative); Red Blood Count 4.31 M/mm3 (4.70-6.10); Red Cell Distribution Width 13.2 % (11.6-14.4); Specific Grav Ur 1.025 (1.010-1.020); Urobilinogen Urine 0.2 mg/dL (0.2-1.0); White Blood Count 8.6 K/mm3 (4.8-10.8)
[2020-11-30 11:23] LABS: Bacteria Urine 1+ /hpf; Mucus Urine Moderate /lpf; Squamous Epithelial Cell Urine Few /hpf (Few); WBC Urine 0-3 /hpf (0-3)
== END 2020-11-30 11:00 | disposition home or self-care (01) ==
LOC: CHSLAB 11:02
PROVIDERS: PCP Nurse Practitioner Family; Visit Provider Nurse Practitioner Family
DX: R79.89 Other specified abnormal findings of blood chemistry (principal); R31.9 Hematuria, unspecified
CPT/HCPCS: 36415; 81001; 85025

== ENCOUNTER 2021-08-22 13:36 | Outpatient (RCR) | payer OTHER, SELFPAY | END 2021-08-22 17:00 | disposition home or self-care (01) | LOC: CHSPT 13:36 | PROVIDERS: Visit Provider Nurse Practitioner Family | DX: R26.2 Difficulty in walking, not elsewhere classified (principal); I50.9 Heart failure, unspecified | CPT/HCPCS: 97162 ==

== ENCOUNTER 2021-10-03 09:27 | Outpatient (CLI) | payer OTHER, SELFPAY ==
--- NOTE | ~2021-10-03 | CT_ITS ---
EXAMINATION: CT abdomen pelvis w con DATE: 10/03/2021 11:13 INDICATION: Stage III chronic kidney disease. TECHNIQUE: Computed tomography (CT) of the abdomen and pelvis was performed with 100 mL Omnipaque-300 intravenous contrast. Automated exposure control and iterative reconstruction technique were employe d. The dose-length product was 1582.83 mGy-cm. COMPARISON: 10/15/2020 FINDINGS: Mild discoid atelectasis at the left lower lobe. Heart size is normal. No pericardial or pleural effu varinder. Diffuse hepatic steatosis. A few hepatic and splenic calcific lesions consistent with old granu lomatous disease. Mild splenomegaly measuring 14.2 cm craniocaudal length. Gallbladder, pancreas, mame ateral adrenal glands and kidneys are normal. No urolithiasis or hydronephrosis. Bladder is normal. P rostatic calcifications. Bowels are normal. No inflammatory stranding to suggest acute appendicitis s urrounding either a short appendix versus appendiceal stump post appendectomy. No free intraperitonea l gas or fluid. No pathologically enlarged abdominal or pelvic lymphadenopathy. Bones are unremarkabl e. IMPRESSION: 1. Normal kidneys with no urolithiasis. 2. Diffuse hepatic steatosis. 3. Nonspecific mild splenomegaly which may be related to body habitus. Reviewed, dictated and finalized at location B.
[2021-10-03 09:51] LABS: Basophils Absolute Auto 0.04 K/mm3 (0.00-0.10); Basophils Percent Auto 0.5 % (0.0-1.0); Eosinophils Absolute Auto 0.41 K/mm3 (0.02-0.50); Eosinophils Percent Auto 4.9 % (1.0-6.0); Hematocrit 38.3 % (40.0-54.0); Hemoglobin 12.2 g/dL (14.0-18.0); Immature Granulocyte Absolute 0.13 K/mm3 (0.00-0.00); Immature Granulocyte Percent A 1.6 % (0.0-0.0); Lymphocytes Absolute Auto 0.79 K/mm3 (1.10-4.50); Lymphocytes Percent Auto 9.4 % (18.0-42.0); Mean Corpuscular HGB Conc 31.9 g/dL (32.0-36.0); Mean Corpuscular Volume 94.3 fL (78.0-102.0); Mean Platelet Volume 9.9 fl (8.7-11.0); Monocytes Absolute Auto 0.48 K/mm3 (0.10-0.90); Monocytes Percent Auto 5.7 % (2.0-11.0); Neutrophils Absolute Auto 6.5 K/mm3 (1.7-7.2); Neutrophils Percent Auto 77.9 % (50.0-70.0); Platelet Count Result 174 K/mm3 (150-420); Red Blood Count 4.06 M/mm3 (4.70-6.10); Red Cell Distribution Width 14.2 % (11.6-14.4); White Blood Count 8.4 K/mm3 (4.8-10.8)
[2021-10-03 10:00] LABS: Add Urine Microscopic? YES; Appearance Urine Clear (Clear); Bilirubin Urine Negative (Negative); Blood Urine Negative (Negative); Color Urine Yellow (Yellow); Glucose Urine UA Negative (Negative); Ketones Urine Negative (Negative); Leukocyte Esterase Ur Trace (Negative); Nitrate Urine Negative (Negative); Protein Urine Negative (Negative); Urobilinogen Urine 0.2 mg/dL (0.2-1.0)
[2021-10-03 10:08] LABS: Hemoglobin A1C 5.8 % (<5.7)
[2021-10-03 10:11] LABS: Bacteria Urine Trace /hpf; Creatinine Urine 137.03 mg/dL (40-278); RBC Urine None seen /hpf (0-2); Squamous Epithelial Cell Urine Few /hpf (Few); Total Protein Urine Random 26.8 mg/dL (0.0-11.9); WBC Urine 0-3 /hpf (0-3)
[2021-10-03 10:33] LABS: Estimated Glomerular Filt Rate > 60
[2021-10-03 10:35] LABS: Alanine Aminotransferase 26 U/L (16-63); Albumin Level 3.6 g/dL (3.4-5.0); Alkaline Phosphatase 86 U/L (46-116); Anion Gap 7 mmol/L (8-16); Aspartate Amino Transferase 18 U/L (15-37); Bilirubin,Total 0.3 mg/dL (0.00-1.00); Blood Urea Nitrogen 17 mg/dL (7-18); Calcium 8.6 mg/dL (8.5-10.1); Carbon Dioxide 29 mmol/L (21-32); Chloride 97 mmol/L (98-108); Cholesterol 170 mg/dL (0-200); Glucose 112 mg/dL (70-99); HDL Direct 70 mg/dL (40-60); LDL Cholesterol Calculated 83 mg/dL (<130); Osmolality Calculated 278 mOsm/kg (285-295); Phosphorus 2.7 mg/dL (2.6-4.7); Potassium 4.3 mmol/L (3.5-5.1); Sodium 133 mmol/L (136-145); Total Protein 8.2 g/dL (6.4-8.2); Triglycerides 87 mg/dL (0-150)
[2021-10-05 10:05] LABS: Parathyroid Intact 49 pg/mL (14-64)
[2021-10-06 19:48] LABS: Vitamin D 25 Hydroxy 37 ng/mL (30-100)
== END 2021-10-03 09:28 | disposition home or self-care (01) ==
PROVIDERS: PCP Nurse Practitioner Family; Visit Provider Internal Medicine Nephrology
DX: D50.9 Iron deficiency anemia, unspecified (principal); G47.33 Obstructive sleep apnea (adult) (pediatric); E78.5 Hyperlipidemia, unspecified; K21.9 Gastro-esophageal reflux disease without esophagitis; R31.9 Hematuria, unspecified; E11.22 Type 2 diabetes mellitus with diabetic chronic kidney disease; I12.9 Hypertensive chronic kidney disease with stage 1 through stage 4 chronic kidney disease, or unspecified chronic kidney disease; N18.1 Chronic kidney disease, stage 1
CPT/HCPCS: 36415; 74177; 80053; 80061; 81001; 82306; 82570; 83036; 83970; 84100; 84156; 85025; Q9967

== ENCOUNTER 2022-06-05 10:02 | Outpatient (CLI) | payer OTHER, SELFPAY ==
[2022-06-05 10:27] LABS: Basophils Absolute Auto 0.03 K/mm3 (0.00-0.10); Basophils Percent Auto 0.4 % (0.0-1.0); Eosinophils Absolute Auto 0.31 K/mm3 (0.02-0.50); Eosinophils Percent Auto 3.9 % (1.0-6.0); Hematocrit 38.8 % (40.0-54.0); Hemoglobin 12.3 g/dL (14.0-18.0); Immature Granulocyte Absolute 0.04 K/mm3 (0.00-0.00); Immature Granulocyte Percent A 0.5 % (0.0-0.0); Lymphocytes Absolute Auto 1.02 K/mm3 (1.10-4.50); Lymphocytes Percent Auto 12.9 % (18.0-42.0); Mean Corpuscular HGB Conc 31.7 g/dL (32.0-36.0); Mean Corpuscular Hemoglobin 30.5 pg (27.0-31.0); Mean Corpuscular Volume 96.3 fL (78.0-102.0); Mean Platelet Volume 9.5 fl (8.7-11.0); Monocytes Absolute Auto 0.41 K/mm3 (0.10-0.90); Monocytes Percent Auto 5.2 % (2.0-11.0); Neutrophils Absolute Auto 6.1 K/mm3 (1.7-7.2); Neutrophils Percent Auto 77.1 % (50.0-70.0); Platelet Count Result 182 K/mm3 (150-420); Red Blood Count 4.03 M/mm3 (4.70-6.10); Red Cell Distribution Width 13.8 % (11.6-14.4); White Blood Count 7.9 K/mm3 (4.8-10.8)
[2022-06-05 10:29] LABS: Add Urine Microscopic? YES; Appearance Urine Clear (Clear); Bilirubin Urine Negative (Negative); Blood Urine 1+ (Negative); Color Urine Light Yellow (Yellow); Glucose Urine UA Negative (Negative); Ketones Urine Negative (Negative); Leukocyte Esterase Ur Negative (Negative); Nitrate Urine Negative (Negative); Protein Urine 1+ (Negative); Specific Grav Ur 1.025 (1.010-1.020); Urobilinogen Urine 0.2 mg/dL (0.2-1.0); pH Urine 6.5 (5.0-8.0)
[2022-06-05 10:34] LABS: Bacteria Urine Trace /hpf; RBC Urine 0-2 /hpf (0-2); Squamous Epithelial Cell Urine Few /hpf (Few); WBC Urine None seen /hpf (0-3)
[2022-06-05 10:41] LABS: Hemoglobin A1C 5.8 % (<5.7)
[2022-06-05 10:43] LABS: Creatinine Urine 108.03 mg/dL (40-278); Total Protein Urine Random 68.9 mg/dL (0.0-11.9); Ur Ttl Prot Creatinine Ratio 0.64 mg/mg (0-0.20)
[2022-06-05 11:01] LABS: Alanine Aminotransferase 20 U/L (16-63); Albumin Level 3.7 g/dL (3.4-5.0); Alkaline Phosphatase 78 U/L (46-116); Anion Gap 7 mmol/L (8-16); Aspartate Amino Transferase 12 U/L (15-37); Bilirubin,Total 0.4 mg/dL (0.00-1.00); Blood Urea Nitrogen 17 mg/dL (7-18); Calcium 8.9 mg/dL (8.5-10.1); Carbon Dioxide 33 mmol/L (21-32); Chloride 98 mmol/L (98-108); Cholesterol 182 mg/dL (0-200); Estimated Glomerular Filt Rate > 60; Glucose 109 mg/dL (70-99); HDL Direct 66 mg/dL (40-60); LDL Cholesterol Calculated 100 mg/dL (<130); Osmolality Calculated 288 mOsm/kg (285-295); Phosphorus 3.8 mg/dL (2.6-4.7); Potassium 4.8 mmol/L (3.5-5.1); Sodium 138 mmol/L (136-145); Total Protein 8.2 g/dL (6.4-8.2); Triglycerides 79 mg/dL (0-150)
[2022-06-07 12:45] LABS: Vitamin D 25 Hydroxy 42 ng/mL (30-100)
[2022-06-07 21:22] LABS: Parathyroid Intact 38 pg/mL (14-64)
== END 2022-06-05 10:03 | disposition home or self-care (01) ==
LOC: CHSLAB 10:06
PROVIDERS: PCP Nurse Practitioner Family; Visit Provider Internal Medicine Nephrology
DX: G47.33 Obstructive sleep apnea (adult) (pediatric) (principal); D50.9 Iron deficiency anemia, unspecified; E78.5 Hyperlipidemia, unspecified; K21.9 Gastro-esophageal reflux disease without esophagitis; I10 Essential (primary) hypertension; E11.8 Type 2 diabetes mellitus with unspecified complications; J44.9 Chronic obstructive pulmonary disease, unspecified; I48.91 Unspecified atrial fibrillation
CPT/HCPCS: 36415; 80053; 80061; 81001; 82306; 82570; 83036; 83970; 84100; 84156; 85025

== ENCOUNTER 2022-11-10 10:55 | Outpatient (CLI) | payer OTHER, MEDICAID, SELFPAY ==
[2022-11-10] VITALS (7 sets, daily range): PULSE 63–93; O2SAT 85–93
[2022-11-10 11:32] LABS: Basophils Absolute Auto 0.05 K/mm3 (0.00-0.10); Basophils Percent Auto 0.6 % (0.0-1.0); Eosinophils Absolute Auto 0.38 K/mm3 (0.02-0.50); Eosinophils Percent Auto 4.2 % (1.0-6.0); Hematocrit 38.6 % (40.0-54.0); Hemoglobin 11.7 g/dL (14.0-18.0); Immature Granulocyte Absolute 0.06 K/mm3 (0.00-0.00); Immature Granulocyte Percent A 0.7 % (0.0-0.0); Lymphocytes Absolute Auto 0.92 K/mm3 (1.10-4.50); Lymphocytes Percent Auto 10.1 % (18.0-42.0); Mean Corpuscular HGB Conc 30.3 g/dL (32.0-36.0); Mean Corpuscular Hemoglobin 29.6 pg (27.0-31.0); Mean Corpuscular Volume 97.7 fL (78.0-102.0); Mean Platelet Volume 9.9 fl (8.7-11.0); Monocytes Absolute Auto 0.42 K/mm3 (0.10-0.90); Monocytes Percent Auto 4.6 % (2.0-11.0); Neutrophils Absolute Auto 7.3 K/mm3 (1.7-7.2); Neutrophils Percent Auto 79.8 % (50.0-70.0); Platelet Count Result 172 K/mm3 (150-420); Red Blood Count 3.95 M/mm3 (4.70-6.10); Red Cell Distribution Width 14.8 % (11.6-14.4); White Blood Count 9.1 K/mm3 (4.8-10.8)
[2022-11-10 11:49] LABS: Rheumatoid Factor Screen Negative (Negative)
[2022-11-10 12:04] LABS: HIV 1 P24 AG Negative (Negative); HIV 1/2 AB Negative (Negative)
[2022-11-10 12:19] LABS: Ferritin 69 ng/mL (26-388); Iron 44 ug/dL (65-175); Percent Iron Saturation 15 % (12-57); Vitamin B12 451 pg/mL (193-986)
[2022-11-10 12:21] LABS: Erythrocyte Sedimentation Rate 30 mm/hr (0-20)
[2022-11-10 12:31] LABS: Thyroid Stimulating Hormone Reflex 2.87 u/IU/mL (0.36-3.74)
--- NOTE | 2022-11-10 13:19 | HOMEO2EVAL ---
Evaluation was performed at [facility] Home Oxygen Evaluation RC: Home Oxygen (O2) Evaluation Start: 11/10/22 13:15 Freq: Status: Active Protocol: RPE Activity Type Activity Date Activity User E-sign Co-sign Detail Recorded Client Recorded Date Recorded By Document 11/10/22 12:15 [facility] [id number] 11/10/22 13:19 [facility] Document 11/10/22 12:16 [facility] [id number] 11/10/22 13:19 [facility] Document 11/10/22 12:17 [facility] [id number] 11/10/22 13:19 [facility] Document 11/10/22 12:18 [facility] [id number] 11/10/22 13:19 [facility] Document 11/10/22 12:19 [facility] [id number] 11/10/22 13:19 [facility] Document 11/10/22 12:25 [facility] [id number] 11/10/22 13:19 [facility] Document 11/10/22 12:30 [facility] [id number] 11/10/22 13:19 [facility] 11/10/22 11/10/22 11/10/22 12:15 12:16 12:17 Home O2 Evaluation [Oxygen] -Test Phase Resting Resting Resting -Oxygen Delivery Room Air Nasal Cannula Nasal Cannula -Oxygen Flow Rate (L/min) 2 3 [Pulse Oximetry] -Pulse Oximetry (90-100 %) 85 L 87 L 86 L [Pulse Rate] -Pulse Rate (60-100 beats/min) 63 [Charges] -Treatment Charges O2 Evaluation - Outpatient 11/10/22 11/10/22 11/10/22 12:18 12:19 12:25 Home O2 Evaluation [Oxygen] -Test Phase Resting Resting Exercise -Oxygen Delivery Nasal Cannula Nasal Cannula Nasal Cannula -Oxygen Flow Rate (L/min) 4 5 5 [Pulse Oximetry] -Pulse Oximetry (90-100 %) 87 L 93 89 L [Pulse Rate] -Pulse Rate (60-100 beats/min) 93 [Charges] -Treatment Charges 11/10/22 12:30 Home O2 Evaluation [Oxygen] -Test Phase Resting -Oxygen Delivery Nasal Cannula -Oxygen Flow Rate (L/min) 5 [Pulse Oximetry] -Pulse Oximetry (90-100 %) 93 [Pulse Rate] -Pulse Rate (60-100 beats/min) 63 [Charges] -Treatment Charges
--- NOTE | 2022-11-10 13:19 | PCRCNOTE ---
Home O2 eval completed in place of 6 minute walk study. Pt unable to walk at this time. Having pain in both feet/legs. Transferred from chair to wheelchair. Pt requires 5 L O2 rest and exertion.
[2022-11-14 01:54] LABS: Zinc 65 mcg/dL (60-130)
[2022-11-14 07:42] LABS: SS-A <1.0; SS-B <1.0
[2022-11-14 12:26] LABS: Vitamin B1 7 nmol/L (8-30)
[2022-11-14 12:31] LABS: Hepatitis C Virus Antibody Nonreactive
[2022-11-14 15:29] LABS: Intrinsic Factor Blocking Ab Negative (Negative)
[2022-11-15 14:02] LABS: Vitamin B6 5.9 ng/mL (2.1-21.7)
[2022-11-15 14:33] LABS: Albumin 3.8 g/dL (3.8-4.8); Alpha 1 Globulin 0.4 g/dL (0.2-0.3); Alpha 2 Globulin 0.8 g/dL (0.5-0.9); Beta 1 Globulin 0.5 g/dL (0.4-0.6); Gamma Globulin 1.6 g/dL (0.8-1.7); Protein, Total 7.6 g/dL (6.1-8.1)
[2022-11-16 20:12] LABS: Testosterone Total 32 ng/dL (250-1100)
--- NOTE | 2022-11-24 15:29 | P.PCNPFT_ITS ---
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 Spirometry: Pre bronchodilator FEV1 is 1.18 L, 31%, severely reduced. Pre bronchodilator FVC is 1.77 L, 37%, severely reduced. FEV1/FVC is 67%, mildly reduced consistent with airflow obstruction. After bronchodilator, FEV1 increases to 1.49 L, 39% predicted, 26% increase. This is statistically significant. After bronchodilator, the FVC increases to 2.03 L, 42%, a 15% increase, statistically significant. The FEV1/FVC ratio is 73%, normal. Lung volumes: Total lung capacity is 4.11 L, 57%, decreased consistent with restrictive impairment. Residual volume is 2.05 L, 84%, normal. RV/TLC is 50%, elevated consistent with air trapping. Diffusion: DLCO is 21, 56% predicted, decreased. DLCO/VA is 7.01, 179%, over corrects for alveolar volume. Flow volume loop: Flow volume loop shows scooping of the expiratory limb consistent with obstruction. The inspiratory limb closes prematurely. IMPRESSION: This study shows an extremely severe obstructive ventilatory impairment with good response to bronchodilator, moderate restriction, moderate air trapping and a mild diffusion impairment that over corrects for alveolar volume. This is a mixed pattern which may represent more than one process. Clinical correlation is recommended. No prior study for comparison. Olya Dubois MD
== END 2022-11-10 10:56 | disposition home or self-care (01) ==
PROVIDERS: Internal Medicine Hematology & Oncology; PCP Nurse Practitioner Family
DX: G62.9 Polyneuropathy, unspecified (principal); J44.9 Chronic obstructive pulmonary disease, unspecified; D50.9 Iron deficiency anemia, unspecified; E53.8 Deficiency of other specified B group vitamins; R79.89 Other specified abnormal findings of blood chemistry; I50.9 Heart failure, unspecified; E66.01 Morbid (severe) obesity due to excess calories; K90.9 Intestinal malabsorption, unspecified
CPT/HCPCS: 36415; 82607; 82728; 83540; 83550; 84155; 84165; 84207; 84402; 84403; 84425; 84443; 84630; 85025; 85652; 86235; 86334; 86340; 86430; 86803; 87806; 94060; 94618; 94726; 94729

== ENCOUNTER 2022-11-23 08:45 | Outpatient (CLI) | payer OTHER, SELFPAY | END 2022-11-23 08:46 | disposition home or self-care (01) | LOC: CHSIMG 08:48 | PROVIDERS: PCP Nurse Practitioner Family | DX: R90.89 Other abnormal findings on diagnostic imaging of central nervous system (principal); G62.9 Polyneuropathy, unspecified | CPT/HCPCS: 99199 ==

== ENCOUNTER 2022-12-12 20:43 | Inpatient (IN) | payer OTHER, SELFPAY ==
--- NOTE | ~2022-12-12 | US_ITS ---
EXAMINATION: US venous doppler [facility] DATE: 12/13/2022 22:46 INDICATION: leg swelling . TECHNIQUE: Grayscale images without and with compression and Doppler images of the bilateral lower ex tremity veins were obtained. COMPARISON: 11/24/2019 FINDINGS: The right common femoral vein, profunda (deep) femoral vein, femoral vein, popliteal vein, peroneal v ein, posterior tibial veins, gastrocnemius vein, and greater saphenous vein are patent. Skin edema, d iscoloration and thickening. The left common femoral vein, profunda (deep) femoral vein, femoral vein, popliteal vein, peroneal v ein, posterior tibial veins, gastrocnemius vein, and greater saphenous vein are patent. Skin edema, d iscoloration and thickening. IMPRESSION: Patent bilateral lower extremity veins. No evidence of deep venous thrombosis. Reviewed, dictated and finalized at location K.
--- NOTE | ~2022-12-12 | XR_ITS ---
EXAMINATION: XR chest 1V portable Exam Date/Time: 12/12/2022 20:55 CDT HISTORY: chest pain, short of breath Comparison: 10/07/2019. RESULT: Lines, tubes, and devices: None. Lungs and pleura: Low volumes with crowding. Diffuse interstitial opacities with indistinct vascular margins. Fissural fluid. Bilateral costophrenic angle blunting. Cardiomediastinal silhouette: Stable. Other: No acute osseous or upper abdominal finding. IMPRESSION: Mild interstitial edema. Small bilateral effusions. Reviewed, dictated and finalized at location K.
[2022-12-12 20:47] VITALS: PULSE 92; RESP 20; TEMP 37.6; O2SAT 96
[2022-12-12 20:53] VITALS: O2SAT 95
--- NOTE | 2022-12-12 20:54 | ECG_ITS ---
Measurements Intervals [place] Rate: 86 P: 52 IN: 215 QRS: 47 QRSD: 90 T: 38 QT: 329 QTc: 394 Interpretive Statements SINUS RHYTHM WITH FIRST DEGREE AV BLOCK OTHERWISE NORMAL ECG COMPARED TO ECG 09/30/2019 13:43:26 FIRST DEGREE AV BLOCK NOW PRESENT SLIGHTLY LONGER IN INTERVAL Electronically Signed On 12-13-2022 7:45:46 CDT by Bobby Vincent M.D.
[2022-12-12 20:57] VITALS: BP 126/62; PULSE 95; RESP 24
[2022-12-12 21:02] VITALS: BP 109/62; PULSE 84; RESP 27; O2SAT 94
[2022-12-12 21:09] LABS: Basophils Percent Auto 0.4 % (0.2-1.2); Eosinophils Absolute Auto 0.3 K/mm3 (0-0.3); Eosinophils Percent Auto 3.1 % (0-4.4); Hematocrit 35.5 % (42.0-52.0); Hemoglobin 10.7 g/dL (14.0-18.0); Immature Granulocyte Absolute 0.05 K/mm3 (0.00-0.031); Immature Granulocyte Percent A 0.5 % (0-0.5); Lymphocytes Absolute Auto 0.68 K/mm3 (0.9-3.2); Lymphocytes Percent Auto 7.4 % (18.3-44.2); Mean Corpuscular HGB Conc 30.1 g/dl (32-36); Mean Corpuscular Hemoglobin 29.5 pg (26-34); Mean Corpuscular Volume 97.8 fl (80-100); Mean Platelet Volume 9.7 fl (7.4-10.4); Monocytes Absolute Auto 0.5 K/mm3 (0.1-0.6); Monocytes Percent Auto 5.6 % (2.6-8.5); Neutrophils Absolute Auto 7.6 K/mm3 (1.3-6.7); Platelet Count Result 163 k/mm3 (150-375); Red Blood Count 3.63 M/mm3 (4.6-6.20); Red Cell Distribution Width 15.5 % (11.5-14.5); White Blood Count 9.1 K/mm3 (4.5-10.0)
[2022-12-12] MEDS: BELLADONNA ALK/PHENOB ELIX 10 ML, MAG HYDROX/ALUMINUM HYD/SIMETH 30 ML, LIDOCAINE HCL 2... PO (21:09)
[2022-12-12 21:18] LABS: INR 1.6
[2022-12-12 21:19] LABS: Partial Thromboplastin Time 45.7 SECONDS (22.3-36.8)
[2022-12-12 21:31] LABS: NT Pro B Type Natriuretic Pept 39 pg/mL (19.9-100); Troponin I < 0.012 ng/mL (0.000-0.034)
[2022-12-12 21:34] LABS: Alanine Aminotransferase 18 U/L (6-50); Alkaline Phosphatase 62 U/L (38-126); Aspartate Amino Transferase 23 U/L (17-59); Bilirubin,Total 0.7 mg/dL (0.2-1.3); Blood Urea Nitrogen 17 mg/dL (9-20); Calcium 8.6 mg/dL (8.4-10.2); Carbon Dioxide > 40 mmol/L (22-30); Chloride 86 mmol/L (98-107); Estimated CRCL calculation 175 ml/min; Estimated Glomerular Filt Rate > 60; Glucose 135 mg/dL (65-110); Lipase 28 U/L (23-300); Potassium 4.6 mmol/L (3.4-5.0); Sodium 126 mmol/L (137-145)
[2022-12-12 22:02] VITALS: BP 128/61; O2SAT 96
[2022-12-12 22:13] LABS: Appearance Urine Cloudy (Clear); Bacteria Urine None Seen /hpf; Bilirubin Urine Negative (Negative); Blood Urine 1+ (Negative); Color Urine Dark Yellow (Yellow); Glucose Urine UA Negative (Negative); Ketones Urine Trace mg/dL (Negative); Leukocyte Esterase Ur 1+ LEU/UL (Negative); Mucus Urine Present /lpf; Nitrate Urine Negative (Negative); Protein Urine Trace mg/dL (Negative); Specific Grav Ur 1.025 (1.001-1.035); Squamous Epithelial Cell Urine Moderate /hpf (Few); Urobilinogen Urine 0.2 mg/dL (<2.0); pH Urine 5.5 (5.0-9.0)
[2022-12-12 22:14] LABS: Add Urine Microscopic? YES
--- NOTE | 2022-12-12 23:43 | ED.GENADULT ---
HPI - General Adult General Chief complaint: Chest Pain Stated complaint: cp Time Seen by Provider: 12/12/22 20:46 History of Present Illness HPI narrative: Is a 57-year-old gentleman who presents emerged department with chief complaint of chest pain. Patient has prior history of COPD and also history of lung disease and is on chronic oxygen. Patient reports he slid down out of his chair and reports that he started having discomfort in his chest. Patient reports the pain is improved significantly patient denies fever denies cough. Patient received nitro and aspirin prior to arrival by EMS Related Data Home Medications Medication Instructions Recorded Confirmed amitriptyline 100 mg tablet 100 mg PO QHS 10/19/22 10/19/22 cholecalciferol (vitamin D3) 10 10 mcg PO DAILY 10/19/22 10/19/22 mcg (400 unit) capsule diltiazem HCl 240 mg capsule,24 240 mg PO DAILY 10/19/22 10/19/22 hr,extended release dofetilide 250 mcg capsule 250 mcg PO Q12H 10/19/22 10/19/22 furosemide 40 mg tablet 40 mg PO QAM 10/19/22 10/19/22 lisinopril 40 mg tablet 40 mg PO DAILY 10/19/22 10/19/22 magnesium 250 mg tablet 250 mg PO DAILY 10/19/22 10/19/22 rivaroxaban 20 mg tablet (Xarelto) 20 mg PO DAILY 10/19/22 10/19/22 rosuvastatin 40 mg tablet 40 mg PO DAILY 10/19/22 10/19/22 sertraline 100 mg tablet 100 mg PO DAILY 10/19/22 10/19/22 Allergies Allergy/AdvReac Type Severity Reaction Status Date / Time Penicillins AdvReac unknown Verified 10/19/22 13:49 Review of Systems Review of Systems: A 10 system review of systems was completed on the patient and is negative except for what is stated in the HPI. Nursing and ancillary documentation was reviewed. [facility] Past Medical History Medical History (Updated 12/13/22 @ 04:01 by Dwayne Frazier MD) Anxiety and depression (~2016) Borderline diabetes Hemoglobin A1c in 2019 was 6.1%. Class 3 severe obesity with body mass index (BMI) of 50.0 to 59.9 in adult Essential hypertension Obstructive sleep apnea on CPAP Peripheral neuropathy Surgical History Surgical History History of appendectomy History of arthroscopy of right knee History of right inguinal hernia repair Family History Family History Father Acute myocardial infarction, Onset Age: 48 Mother Family history of malignant neoplasm, Onset Age: 61 Grandparent Family history of malignant neoplasm, Onset Age: 58 Carcinoma of colon, Onset Age: 71 Family history of renal failure, Onset Age: 65 Cerebrovascular accident, Onset Age: 68 Social History Social History Social History: The patient lives in his own home in [place], [place]. 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 He is a lifelong nonsmoker. He drinks alcohol socially and in moderation. He denies drug use. He designates his significant other, Martita Fernández, is his surrogate decision maker and he wishes to be a full code. 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 HEAD: Normocephalic, atraumatic. EYES: PERRLA and EOMI. ENT: Nares clear, no rhinorrhea or epistaxis. Mucous membranes moist. NECK: Supple. CHEST: Clear to auscultation. No respiratory distress. HEART: Regular rate and rhythm. No murmur heard. Normal peripheral pulses. ABDOMEN: Soft, nontender, nondistended, normal active bowel sounds. EXTREMITIES: Normal ran
[2022-12-13] VITALS (33 sets, daily range): BP systolic 114–158; BP diastolic 59–107; PULSE 66–97; RESP 15–213; TEMP 36.3–36.8; O2SAT 91–100; BMI 56.5
--- NOTE | 2022-12-13 | ECHO_ITS ---
Patient Info Name: Justo Hancock Age: 57 years : 1965 Gender: Male Ht: 72 in Wt: 419 lbs BSA: 3.22 m2 HR: 77 bpm BP: 145 / 77 mmHg Heart Rhythm: Indeterminant Technical Quality: Poor Exam Date: 12/13/2022 2:12 PM Exam Location: [facility] Pulmonary Patient Status: Inpatient Admit Date: 12/13/2022 Staff Ordering Physician: Eleanor Goldberg MD Head Of Transport Logistics: Woo Mcginnis RDCS Attending Provider: Desi Beltran DO Exam Type: CA echo dop color flow w con Study Info Indications - acute on ch respiratory failure Complete two-dimensional, color flow and Doppler transthoracic echocardiogram is performed with contrast to opacify the left ventricle and to improve the deliniation of the left ventricle endocardial borders. Reason for Poor Study: poor echocardiographic windows History/Risk Factors Hypertension: Yes Summary 1. Left ventricle very poorly imaged. Grossly normal function. A suggestion of normal size with LVH. Diastolic function was normal. 2. No obvious valvular abnormalities. 3. IV definity echo contrast used but did not improve imaging. Very technically difficult study. 4. Normal sinus rhythm. Left Ventricle Left ventricular chamber dimension is normal. Left ventricular systolic function is normal, estimated at 60-65%. There is no increased left ventricular wall thickness. Left ventricular septal wall motion is normal. The left ventricular diastolic function is normal. Right Ventricle Right ventricular chamber dimension is normal. Right ventricular systolic function is normal. Left Atria Left atrial chamber dimension is normal. Right Atria Right atrial chamber dimension is normal. Aortic Valve The aortic valve is trileaflet. There is no aortic valve sclerosis. There is no aortic valve stenosis. There is no aortic valve regurgitation. Pulmonic Valve The pulmonic valve is normal. There is no pulmonic valve stenosis. There is no pulmonic regurgitation. Mitral Valve The mitral valve has normal leaflets. There is no mitral valve stenosis. There is no mitral valve regurgitation. Tricuspid Valve The tricuspid valve leaflets are normal. There is no significant tricuspid valve stenosis. There is no tricuspid valve regurgitation. No pulmonary hypertension, estimated pulmonary arterial systolic pressure is 12 mmHg. Pericardium/Pleural The pericardium appears normal. There is no pericardial effusion. Inferior Vena Cava Normal inferior vena cava with >50% collapse upon inspiration consistent with Empty right atrial pressure, 10 mmHg. Aorta The aortic root size at the sinus of Valsalva is normal. The prox ascending aorta size is normal. Pulmonic Valve Name Value Normal RVOT Doppler RVOT Peak Gradient 3 mmHg PV Doppler PV Peak Gradient 2 mmHg Mitral Valve Name Value Normal MV Doppler MV [place] 294.74 cm/s2 MV PHT 0 s
[2022-12-13 00:09] LABS: Troponin I < 0.012 ng/mL (0.000-0.034)
[2022-12-13 01:08] LABS: Base Excess ABG 8.8 mEq/l (+/-2.0); Fractional Inspired Oxygen 40 %; HCO3 ABG 38.6 mEq/l (22.0-26.0); Oxygen Content ABG 15.6 %vol (16.0-22.0); Oxyhemoglobin 92.6 % THb (90.0-100.0); PO2 ABG 82.4 mmHg (80.0-100.0); PO2 FiO2 Ratio Arterial Blood 2.06 %; Total Hemoglobin 11.9 g/dL (12.0-18.0)
[2022-12-13 01:14] LABS: Device NASAL CANNULA; Modified Allen's Test Pass; PCO2 ABG 85.9 mmHg (35.0-45.0); Site Drawn RIGHT RADIAL
[2022-12-13] MEDS: methylPREDNISolone SOD SUCC 125 MG VIAL IV PUSH (01:28)
--- NOTE | 2022-12-13 02:12 | PM.IMHP ---
H&P: HPI History of Present Illness Date/Time: 12/13/22 02:12 Chief Complaint: Chest pain and weakness Narrative: 57-year-old male with past medical history of obesity hypoventilation syndrome, paroxysmal atrial fibrillation on chronic anticoagulation, CHF and COPD who presented to the ER via EMS from home after sliding down to the floor and being unable to get up. The patient reported the he has been feeling ill since this past Sunday. He has been feeling generally fatigued, having sinus pressure, nasal congestion and postnasal drip. Is been having a mild cough. He reports having subjective fever. When EMS arrived to his home his temperature was 99.9? per patient report. He has been on his chronic home O2 of 5 L. he states that when his symptoms have persisted until Sunday he called his primary care provider who wrote him a script for doxycycline. Despite being on doxycycline for 3 days has total of 5 doses he was still feeling bad and decided to call EMS. He reports that he was unable to stand up after he slid down onto the floor. When new straining to try to get up he did have some chest discomfort. He did receive some nitroglycerin and aspirin per EMS. He reports that his as discomfort is worse with deep breathing. He denies any nausea or vomiting. He denies any changes in his bowel habits. He reports that he was so weak that he was unable to feed himself and his neighbor came over to help him eat today. He only ate a small amount of spaghetti prior to coming to the ER. He reports feeling chilled currently. He denies any increased lower extremity swelling. He reports his abdomen has been more distended and tight. He has been taking his medications as directed. He reports that he has been compliant with his home BiPAP. He does not know his home BiPAP setting. Review of Systems Review of Systems: 12 systems were reviewed with pertinent positives and negatives per HPI. Except as documented in the HPI, all other systems were reviewed and are negative. [facility] Past Medical History Medical History (Updated 12/13/22 @ 08:42 by Desi Beltran DO) Anxiety and depression (~2017) Borderline diabetes Hemoglobin A1c in 2019 was 6.1%. Class 3 severe obesity with body mass index (BMI) of 50.0 to 59.9 in adult Essential hypertension Obstructive sleep apnea on CPAP PAF (paroxysmal atrial fibrillation) Peripheral neuropathy Right heart failure Surgical History Surgical History History of appendectomy History of arthroscopy of right knee History of right inguinal hernia repair Family History Family History Father Acute myocardial infarction, Onset Age: 48 Mother Family history of malignant neoplasm, Onset Age: 61 Grandparent Family history of malignant neoplasm, Onset Age: 58 Carcinoma of colon, Onset Age: 71 Family history of renal failure, Onset Age: 65 Cerebrovascular accident, Onset Age: 68 Social History Social History (Updated 12/13/22 @ 08:09 by Desi Beltran DO) Social History: The patient lives in his own home in [place], [place]. 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 He is a lifelong nonsmoker. He drinks alcohol socially and in moderation. He denies drug use. He designates his significant other, Martita Fernández, is his surrogate decision maker and he wishes to be a full code. Smoking status: Never smoker Alcohol intake: former Alcohol use details: occasional drinker Substance use: never Lack of Transportation: No Lack of Food: Never True Current Housing: I Have Housing Concerned About Future Housing: No Difficulty Paying Gas/Electric Bills: No Difficulty Paying for Meds: No Currently Unemployed: No Education: High School Diploma/GED Difficulty w/ Childcare or Family Care: No Living arrangements: alone Occupation/Education: occ
[2022-12-13] MEDS: SODIUM CHLORIDE 0.9% IV 1,000 ML 100 ML IV CONT (02:18)
[2022-12-13] MEDS: IPRATROPIUM BR 0.02% INH SOLN 0.5 MG/2.5 ML VIAL INHALATION ×4 (02:22→20:29)
[2022-12-13] MEDS: ALBUTEROL SULFATE NEB 2.5 MG/3 ML INH INHALATION ×4 (02:22→20:29)
[2022-12-13 02:55] LABS: Troponin I < 0.012 ng/mL (0.000-0.034)
[2022-12-13 03:43] LABS: Influenza A QL RT-PCR Negative (Negative); Influenza B QL RT-PCR Negative (Negative); SARS-CoV-2 RNA PCR Negative (Negative)
[2022-12-13 03:47] LABS: Base Excess ABG 5.6 mEq/l (+/-2.0); Fractional Inspired Oxygen 50 %; HCO3 ABG 35.1 mEq/l (22.0-26.0); Oxygen Content ABG 16.3 %vol (16.0-22.0); Oxygen Saturation ABG 95.2 % (95.0-100.0); Oxyhemoglobin 93.9 % THb (90.0-100.0); Total Hemoglobin 12.3 g/dL (12.0-18.0)
[2022-12-13 03:49] LABS: pH ABG 7.262 (7.350-7.450)
[2022-12-13 03:50] LABS: Modified Allen's Test Pass; PCO2 ABG 79.6 mmHg (35.0-45.0); Site Drawn LEFT RADIAL
[2022-12-13 03:51] LABS: Device NON-INVASIVE VENT
[2022-12-13 03:53] LABS: Non-Invasive Expiratory Pressure 6 CMH2O; Non-Invasive Inspiratory Pressure 16 CMH2O; Non-Invasive Vent Rate 12 /MIN
--- NOTE | 2022-12-13 03:58 | PC.NURSE ---
1 L normal saline was ordered to be administered at 100 mls/hr by EDP, Dr. Frazier. 1 L normal saline was administered over 1.5 hours by this RN. EDP and hospitalist, Dr. Beltran, made aware of this rate change. Pt status is unchanged and stable.
[2022-12-13] MEDS: AZITHROMYCIN 500 MG/NS 250 ML 500 MG/250 ML BAG 250 MG IVPB (04:21)
--- NOTE | 2022-12-13 05:39 | ADMIMU ---
This patient, Justo Hancock Jr., was admitted to IMU status, and placed in Intensive Care Unit-4. Patient/family oriented to hospital policies and general routines including ID bracelet, bed and alarms, visiting hours, pain management, procedures, bathroom and other care routines, personal items, smoking policy, room service/diet, and visiting hours. Valuables list has been completed. Information on how to activate the Rapid Response Team has been discussed. Patient/Family are encouraged to report perceived risks to care and to ask questions if they do not understand what they are told or what they should do. arrived onm bipap able to answer questions
[2022-12-13 06:43] LABS: Basophils Percent Auto 0.2 % (0.2-1.2); Eosinophils Percent Auto 0.1 % (0-4.4); Hematocrit 38.4 % (42.0-52.0); Hemoglobin 11.3 g/dL (14.0-18.0); Immature Granulocyte Absolute 0.09 K/mm3 (0.00-0.031); Immature Granulocyte Percent A 0.9 % (0-0.5); Lymphocytes Absolute Auto 0.35 K/mm3 (0.9-3.2); Lymphocytes Percent Auto 3.6 % (18.3-44.2); Mean Corpuscular HGB Conc 29.4 g/dl (32-36); Mean Corpuscular Hemoglobin 29.4 pg (26-34); Mean Corpuscular Volume 99.7 fl (80-100); Mean Platelet Volume 9.5 fl (7.4-10.4); Monocytes Absolute Auto 0.2 K/mm3 (0.1-0.6); Monocytes Percent Auto 1.7 % (2.6-8.5); Neutrophils Percent Auto 93.5 % (45.5-73.1); Platelet Count Result 153 k/mm3 (150-375); Red Blood Count 3.85 M/mm3 (4.6-6.20); Red Cell Distribution Width 15.3 % (11.5-14.5); White Blood Count 9.6 K/mm3 (4.5-10.0)
[2022-12-13 06:55] LABS: Blood Urea Nitrogen 16 mg/dL (9-20); Calcium 8.2 mg/dL (8.4-10.2); Carbon Dioxide > 40 mmol/L (22-30); Chloride 87 mmol/L (98-107); Estimated CRCL calculation 175 ml/min; Estimated Glomerular Filt Rate > 60; Glucose 155 mg/dL (65-110); Potassium 5.5 mmol/L (3.4-5.0); Sodium 131 mmol/L (137-145)
[2022-12-13 07:05] LABS: Platelet Estimate Adequate (Adequate)
[2022-12-13 07:06] LABS: Schistocytes None Seen (NORMAL); Stomatocytes 1+ (NORMAL)
[2022-12-13] MEDS: methylPREDNISolone SOD SUCC 125 MG VIAL 60 MG IV PUSH (09:03)
[2022-12-13 09:06] LABS: Alveolar/Arterial O2 Gradient 185.4 mmHg; Base Excess ABG 7.8 mEq/l (+/-2.0); Carboxyhemoglobin 0.5 % THb (0-2.0); Fractional Inspired Oxygen 50 %; HCO3 ABG 37.7 mEq/l (22.0-26.0); Methemoglobin ABG 0.2 %THb (0-1.5); Oxygen Content ABG 16.7 %vol (16.0-22.0); Oxygen Saturation ABG 92.7 % (95.0-100.0); Oxyhemoglobin 93.3 % THb (90.0-100.0); PO2 ABG 76.6 mmHg (80.0-100.0); PO2 FiO2 Ratio Arterial Blood 1.53 %; Total Hemoglobin 12.7 g/dL (12.0-18.0)
[2022-12-13 09:09] LABS: Device NON-INVASIVE VENT; Modified Allen's Test Pass; Non-Invasive Expiratory Pressure 10 CMH2O; Non-Invasive Inspiratory Pressure 20 CMH2O; Non-Invasive Vent Rate 20 /MIN; Site Drawn RIGHT RADIAL
[2022-12-13] MEDS: FUROSEMIDE INJ 40 MG/4 ML VIAL IV PUSH (09:40)
--- NOTE | 2022-12-13 11:04 | WPDCNINT ---
Assessment and Plan Assessment and plan (1) Acute on chronic respiratory failure with hypercapnia: Code(s): J96.22 - Acute and chronic respiratory failure with hypercapnia Status: Acute Assessment and Plan: Patient has chronic obstructive and restrictive lung disease, he has chronic hypercapnic respiratory failure, congestive heart failure and COPD Patient also reported mild cough on presentation and chest x-ray was read as mild interstitial edema with small bilateral effusions ? Community-acquired pneumonia WBC 9.6 ABG shows hypercarbic respiratory failure BiPAP settings reviewed and I have decreased the EPAP to 7, continue IPAP at 20, FiO2 reduced to 40% and will further wean down to keep sat 88-92% Lasix IV given will be repeated later in the day Empiric Rocephin azithromycin blood cultures ordered and pending Influenza and coronavirus PCR negative Bronchodilators, Solu-Medrol Check echocardiogram Repeat ABG ordered PFT 11/24/2022 IMPRESSION:? This study shows an extremely severe obstructive ventilatory impairment with good response to bronchodilator, moderate restriction, moderate air trapping and a mild diffusion impairment that over corrects for alveolar volume. This is a mixed pattern which may represent more than one process.? Clinical correlation is recommended. No prior study for comparison. (2) CHF (congestive heart failure): Qualifiers: Heart failure chronicity: acute on chronic Heart failure type: diastolic Qualified Code(s): I50.33 - Acute on chronic diastolic (congestive) heart failure Code(s): I50.9 - Heart failure, unspecified Status: Acute Assessment and Plan: Echo ordered and pending (3) Obstructive sleep apnea on CPAP: Code(s): G47.33 - Obstructive sleep apnea (adult) (pediatric); Z99.89 - Dependence on other enabling machines and devices Status: Acute Assessment and Plan: Currently on BiPAP (4) COPD (chronic obstructive pulmonary disease): Code(s): J44.9 - Chronic obstructive pulmonary disease, unspecified Status: Acute Assessment and Plan: See above (5) Community acquired pneumonia: Code(s): J18.9 - Pneumonia, unspecified organism Status: Acute Assessment and Plan: See above (6) Hyperkalemia: Code(s): E87.5 - Hyperkalemia Status: Acute Assessment and Plan: Patient presented with potassium of 5.5 which is likely multifactorial secondary to home Aldactone and acidosis Creatinine normal Patient received Lasix Recheck BMP later (7) PAF (paroxysmal atrial fibrillation): Code(s): I48.0 - Paroxysmal atrial fibrillation Status: Acute Assessment and Plan: Continue Cardizem and dofetilide Patient is on Xarelto at home which has been switched to subcutaneous Lovenox at this time Currently in sinus rhythm Plan DVT prophylaxis -therapeutic anticoagulation Nutrition -NPO Code Status - Full Code Total Critical Care Time - 40 minutes Due to a high probability of clinically significant, life threatening deterioration, the patient required my highest level of preparedness to intervene emergently and I personally spent this critical care time directly and personally managing the patient. This critical care time included obtaining a history; examining the patient; pulse oximetry; ordering and review of studies; arranging urgent treatment with development of a management plan; evaluation of patient's response to treatment; frequent reassessment; and discussions with other providers. It was exclusive of separately billable procedures and treating other patients and teaching time. 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 is a 57 year old male with past medical histor
[2022-12-13] MEDS: BUDESONIDE RESPULE NEB 0.5 MG/2 ML AMP INHALATION ×2 (11:30→20:29)
[2022-12-13 11:46] LABS: Alveolar/Arterial O2 Gradient 97.5 mmHg; Fractional Inspired Oxygen 35 %; HCO3 ABG 40.7 mEq/l (22.0-26.0); Modified Allen's Test Pass; Oxygen Saturation ABG 90.2 % (95.0-100.0); Oxyhemoglobin 91.2 % THb (90.0-100.0); PO2 ABG 63.7 mmHg (80.0-100.0); PO2 FiO2 Ratio Arterial Blood 1.82 %; Site Drawn RIGHT RADIAL; Total Hemoglobin 12.5 g/dL (12.0-18.0); pH ABG 7.347 (7.350-7.450)
[2022-12-13 11:47] LABS: Device NON-INVASIVE VENT; Non-Invasive Expiratory Pressure 7 CMH2O; Non-Invasive Inspiratory Pressure 20 CMH2O; Non-Invasive Vent Rate 20 /MIN
[2022-12-13] MEDS: dilTIAZem HCL CD 240 MG CAP.24HR PO (13:08)
[2022-12-13] MEDS: AZELASTINE HCL NASAL 0.1% 137 MCG/SPR 30 ML BTL 2 SPRAY NASAL ×2 (13:11→21:01)
[2022-12-13] MEDS: FOLIC ACID 1 MG TABLET PO (13:22)
[2022-12-13] MEDS: SERTRALINE HCL 50 MG TABLET 100 MG PO (13:23)
[2022-12-13] MEDS: MAGNESIUM OXIDE 400 MG TABLET PO (13:23)
[2022-12-13] MEDS: ROSUVASTATIN 10 MG TABLET 40 MG PO (13:23)
--- NOTE | 2022-12-13 13:27 | PM.IMPN ---
Progress Note: A&P Assessment and Plan (1) PAF (paroxysmal atrial fibrillation): Code(s): I48.0 - Paroxysmal atrial fibrillation Status: Acute (2) Hyperkalemia: Code(s): E87.5 - Hyperkalemia Status: Acute (3) Community acquired pneumonia: Code(s): J18.9 - Pneumonia, unspecified organism Status: Acute (4) COPD (chronic obstructive pulmonary disease): Code(s): J44.9 - Chronic obstructive pulmonary disease, unspecified Status: Acute (5) Acute on chronic respiratory failure with hypercapnia: Code(s): J96.22 - Acute and chronic respiratory failure with hypercapnia Status: Acute (6) Acute hyponatremia: Code(s): E87.1 - Hypo-osmolality and hyponatremia Status: Acute Plan ?57 year old male with past medical history of obesity hypoventilation syndrome, paroxysmal atrial fibrillation on chronic anticoagulation, CHF and COPD who presented to the ER via EMS from home after sliding down to the floor and being unable to get up.? The patient reported to admitting provider that he has been feeling ill since this past Sunday.? He has been feeling generally fatigued, having sinus pressure, nasal congestion and postnasal drip.? Patient also reported having mild cough and subjective fever.? When EMS arrived to his home his temperature was 99.9? per patient report.? He has been on his chronic home O2 of 5 L. he states that when his symptoms have persisted until Sunday he called his primary care provider who wrote him a script for doxycycline.? Despite being on doxycycline for 3 days has total of 5 doses he was still feeling bad and decided to call EMS.??? 1)Acute on Chronic Resp Failure+Acute Metabolic Encephalopathy Appreciate Sole Ruffer help ABG shows hypercarbia ?CAP C/w BIPAP, settings as per sterile processing technologist c/w Ceftriaxone+Azithromycin Bronchodilators IV lasix c/w solumedrol Await DVT study Hold off CT head for now 2)Hyperkalemia: Received Lasix, hopefully potassium will come down 3)Parosxymal Afibb: Xarelto switched to lovenox c/w Cardizem, Dofetilide Await echo 4)DVT ppx: ON Lovenox 5)Code:Full 6)Dispo:pending improvement Time Spent With Patient Time with patient: 25 - 35 minutes Subjective Date/time seen: 12/13/22 13:27 Interval history: on BIPAP, no response to deep stimuli, although woke up confused little later in the day Review of Systems Review of Systems: ROS unobtainable: Yes unobtainable due to mental status Exam Narrative: General: Pt is drowsy on BIPAP Lungs/Chest: Trachea central decreased BS B/L, No crackles or wheezing. Cardiac: RRR. Normal S1 S2. No murmurs Abdomen: Normal bowel sounds. Morbidly obese. Soft. NT. ND. Extremities: Chronic venous stasis changes, edema+ : Abebe in place Neurologic:unable to assess Skin: No Rash Objective Data Vital Signs Vital Signs: Vital Signs - 24 hr 12/12/22 20:47 12/12/22 20:53 12/13/22 01:34 Temperature 99.6 F Pulse Rate 92 71 Respiratory Rate 20 19 Blood Pressure 114/73 Pulse Oximetry 96 95 97 Oxygen Delivery Nasal Cannula Nasal Cannula Oxygen Flow Rate 5 5 Fraction of Inspired Oxygen 12/13/22 02:20 12/13/22 02:29 12/13/22 01:30 Temperature Pulse Rate 70 75 70 Respiratory Rate 15 15 16 Blood Pressure Pulse Oximetry 100 Oxygen Delivery BiPAP Oxygen Flow Rate Fraction of Inspired Oxygen 12/12/22 20:57 12/12/22 21:02 12/12/22 22:02 Temperature Pulse Rate 95 84 Respiratory Rate 24 H 27 H Blood Pressure 126/62 109/62 128/61 Pulse Oximetry 94 96 Oxygen Delivery Oxygen Flow Rate Fraction of Inspired Oxygen 12/13/22 01:34 12/13/22 02:02 12/13/22 03:36 Temperature Pulse Rate 71 71 73 Respiratory Rate 19 17 18 Blood Pressure 114/73 158/59 H Pulse Oximetry 97 100 100 Oxygen Delivery BiPAP Oxygen Flow Rate Fraction of Inspired Oxygen 12/13/22 03:36 12/13/22 04:08 12/13/22 05:11 Tem
[2022-12-13] MEDS: PERFLUTREN LIPID MICROSPHERES 1.5 ML VIAL DILUTED TO 10 ML TOTAL VOLUME IV PUSH (14:00)
[2022-12-13 15:27] LABS: Blood Urea Nitrogen 17 mg/dL (9-20); Calcium 8.5 mg/dL (8.4-10.2); Carbon Dioxide > 40 mmol/L (22-30); Chloride 85 mmol/L (98-107); Estimated CRCL calculation 175 ml/min; Estimated Glomerular Filt Rate > 60; Glucose 150 mg/dL (65-110); Potassium 4.6 mmol/L (3.4-5.0); Sodium 129 mmol/L (137-145)
[2022-12-13] MEDS: RIVAROXABAN 20 MG TABLET PO (16:51)
[2022-12-13] MEDS: FLUTICASONE PROP 110 MCG INHALER 12 GM (*SP) 1 PUFF INHALATION (20:30)
[2022-12-14] VITALS (30 sets, daily range): BP systolic 124–153; BP diastolic 52–91; PULSE 60–82; RESP 13–24; TEMP 36.5–36.6; O2SAT 90–97
[2022-12-14] MEDS: ALBUTEROL SULFATE NEB 2.5 MG/3 ML INH INHALATION ×4 (02:36→20:13)
[2022-12-14 03:27] LABS: Hematocrit 38.6 % (42.0-52.0); Hemoglobin 11.7 g/dL (14.0-18.0); Mean Corpuscular HGB Conc 30.3 g/dl (32-36); Mean Corpuscular Hemoglobin 29.1 pg (26-34); Mean Platelet Volume 9.4 fl (7.4-10.4); Platelet Count Result 178 k/mm3 (150-375); Red Blood Count 4.02 M/mm3 (4.6-6.20); Red Cell Distribution Width 14.9 % (11.5-14.5); White Blood Count 9.4 K/mm3 (4.5-10.0)
[2022-12-14] MEDS: AZITHROMYCIN 500 MG/NS 250 ML 500 MG/250 ML BAG 250 MG IVPB (03:44)
[2022-12-14 03:57] LABS: Alanine Aminotransferase 22 U/L (6-50); Albumin Level 4.2 g/dL (3.5-5.1); Alkaline Phosphatase 67 U/L (38-126); Aspartate Amino Transferase 21 U/L (17-59); Bilirubin,Total 0.4 mg/dL (0.2-1.3); Blood Urea Nitrogen 20 mg/dL (9-20); Calcium 8.7 mg/dL (8.4-10.2); Carbon Dioxide > 40 mmol/L (22-30); Chloride 85 mmol/L (98-107); Estimated CRCL calculation 175 ml/min; Estimated Glomerular Filt Rate > 60; Glucose 160 mg/dL (65-110); Magnesium 2.6 mg/dL (1.6-2.3); Potassium 4.7 mmol/L (3.4-5.0); Sodium 129 mmol/L (137-145)
[2022-12-14 05:53] LABS: Alveolar/Arterial O2 Gradient 102.1 mmHg; Base Excess ABG 12.8 mEq/l (+/-2.0); Carboxyhemoglobin 0.5 % THb (0-2.0); Fractional Inspired Oxygen 35 %; HCO3 ABG 39.7 mEq/l (22.0-26.0); Methemoglobin ABG 0.2 %THb (0-1.5); Oxygen Content ABG 16.9 %vol (16.0-22.0); Oxygen Saturation ABG 95.2 % (95.0-100.0); Oxyhemoglobin 93.8 % THb (90.0-100.0); PO2 ABG 76.2 mmHg (80.0-100.0); PO2 FiO2 Ratio Arterial Blood 2.18 %; Reduced Hemoglobin 5.5 %THb (0-5.0); Total Hemoglobin 12.8 g/dL (12.0-18.0); pH ABG 7.429 (7.350-7.450)
[2022-12-14 05:54] LABS: Modified Allen's Test Pass; Site Drawn LEFT RADIAL
[2022-12-14 05:57] LABS: PCO2 ABG 61.3 mmHg (35.0-45.0)
[2022-12-14 05:58] LABS: Device BIPAP
[2022-12-14 05:59] LABS: Expiratory Pressure 7 cmH2O; Inspiratory Pressure 20 cmH2O
[2022-12-14] MEDS: IPRATROPIUM BR 0.02% INH SOLN 0.5 MG/2.5 ML VIAL INHALATION ×3 (08:10→20:13)
[2022-12-14] MEDS: BUDESONIDE RESPULE NEB 0.5 MG/2 ML AMP INHALATION ×2 (08:10→20:13)
[2022-12-14] MEDS: FLUTICASONE PROP 110 MCG INHALER 12 GM (*SP) 1 PUFF INHALATION (08:19)
--- NOTE | 2022-12-14 08:25 | WPDINTPN ---
Progress Note: A&P Assessment and Plan (1) Acute on chronic respiratory failure with hypercapnia: Code(s): J96.22 - Acute and chronic respiratory failure with hypercapnia Status: Acute Assessment and Plan: Patient has chronic obstructive and restrictive lung disease, he has chronic hypercapnic respiratory failure, congestive heart failure and COPD Patient also reported mild cough on presentation and chest x-ray was read as mild interstitial edema with small bilateral effusions Community-acquired pneumonia unlikely as patient has normal WBC 9.6 and negligible procalcitonin level. He has been afebrile. Will discontinue antibiotics if cultures remain negative at 48 hours ABG shows hypercarbic respiratory failure BiPAP 20/7 35% continue to wean down to keep sat 88-92% ABG reviewed and shows improvement. I will transition patient to nasal cannula this morning Continue Lasix IV Empiric Rocephin azithromycin blood cultures ordered and pending Influenza and coronavirus PCR negative Bronchodilators, Solu-Medrol Echocardiogram reviewed PFT 11/24/2022 IMPRESSION:? This study shows an extremely severe obstructive ventilatory impairment with good response to bronchodilator, moderate restriction, moderate air trapping and a mild diffusion impairment that over corrects for alveolar volume. This is a mixed pattern which may represent more than one process.? Clinical correlation is recommended. No prior study for comparison. (2) CHF (congestive heart failure): Qualifiers: Heart failure type: diastolic Heart failure chronicity: acute on chronic Qualified Code(s): I50.33 - Acute on chronic diastolic (congestive) heart failure Code(s): I50.9 - Heart failure, unspecified Status: Acute Assessment and Plan: Echo Summary ? 1. Left ventricle very poorly imaged.? Grossly normal function.? A suggestion of normal size with LVH. Diastolic function was normal. ? 2. No obvious valvular abnormalities. ? 3. IV definity echo contrast used but did not improve imaging.? Very technically difficult study. ? 4. Normal sinus rhythm. (3) Obstructive sleep apnea on CPAP: Code(s): G47.33 - Obstructive sleep apnea (adult) (pediatric); Z99.89 - Dependence on other enabling machines and devices Status: Acute Assessment and Plan: Continue BiPAP at night (4) COPD (chronic obstructive pulmonary disease): Code(s): J44.9 - Chronic obstructive pulmonary disease, unspecified Status: Acute Assessment and Plan: See above (5) Community acquired pneumonia: Code(s): J18.9 - Pneumonia, unspecified organism Status: Acute Assessment and Plan: See above (6) Hyperkalemia: Code(s): E87.5 - Hyperkalemia Status: Acute Assessment and Plan: Patient presented with potassium of 5.5 which is likely multifactorial secondary to home Aldactone and acidosis Creatinine normal Patient received Lasix and potassium level has normalized (7) PAF (paroxysmal atrial fibrillation): Code(s): I48.0 - Paroxysmal atrial fibrillation Status: Acute Assessment and Plan: Continue Cardizem and dofetilide Continue xarelto Currently in sinus rhythm Plan DVT prophylaxis -therapeutic anticoagulation Nutrition -start diet Code Status - Full Code Consult dietitian and bilingual case manager Incentive spirometry PT OT Total Critical Care Time - 30 minutes Due to a high probability of clinically significant, life threatening deterioration, the patient required my highest level of preparedness to intervene emergently and I personally spent this critical care time directly and personally managing the patient. This critical care time included obtaining a history; examining the patient; pulse oximetry; ordering and review of studies; arranging urgent treatment with development of a management plan; evaluation of patient's response to treatment; frequent reassessment; and discussions
[2022-12-14] MEDS: dilTIAZem HCL CD 240 MG CAP.24HR PO (08:46)
[2022-12-14] MEDS: methylPREDNISolone SOD SUCC 125 MG VIAL 60 MG IV PUSH (08:46)
[2022-12-14] MEDS: FUROSEMIDE INJ 40 MG/4 ML VIAL IV PUSH (08:47)
[2022-12-14] MEDS: ROSUVASTATIN 10 MG TABLET 40 MG PO (08:47)
[2022-12-14] MEDS: FOLIC ACID 1 MG TABLET PO (08:47)
[2022-12-14] MEDS: MAGNESIUM OXIDE 400 MG TABLET PO (08:48)
[2022-12-14] MEDS: SERTRALINE HCL 50 MG TABLET 100 MG PO (08:48)
[2022-12-14] MEDS: AZELASTINE HCL NASAL 0.1% 137 MCG/SPR 30 ML BTL 2 SPRAY NASAL ×2 (08:49→20:04)
--- NOTE | 2022-12-14 11:37 | PCDIET ---
Nutrition consult for obesity. See Nutritional Teaching Intervention. Thank you for the consult.
--- NOTE | 2022-12-14 15:35 | WPDPN ---
Progress Note: A&P Assessment and Plan (1) PAF (paroxysmal atrial fibrillation): Code(s): I48.0 - Paroxysmal atrial fibrillation Status: Acute (2) Hyperkalemia: Code(s): E87.5 - Hyperkalemia Status: Acute (3) Community acquired pneumonia: Code(s): J18.9 - Pneumonia, unspecified organism Status: Acute (4) COPD (chronic obstructive pulmonary disease): Code(s): J44.9 - Chronic obstructive pulmonary disease, unspecified Status: Acute (5) Acute on chronic respiratory failure with hypercapnia: Code(s): J96.22 - Acute and chronic respiratory failure with hypercapnia Status: Acute (6) Acute hyponatremia: Code(s): E87.1 - Hypo-osmolality and hyponatremia Status: Acute Plan ?57 year old male with past medical history of obesity hypoventilation syndrome, paroxysmal atrial fibrillation on chronic anticoagulation, CHF and COPD who presented to the ER via EMS from home after sliding down to the floor and being unable to get up.? The patient reported to admitting provider that he has been feeling ill since this past Sunday.? He has been feeling generally fatigued, having sinus pressure, nasal congestion and postnasal drip.? Patient also reported having mild cough and subjective fever.? When EMS arrived to his home his temperature was 99.9? per patient report.? He has been on his chronic home O2 of 5 L. he states that when his symptoms have persisted until Sunday he called his primary care provider who wrote him a script for doxycycline.? Despite being on doxycycline for 3 days has total of 5 doses he was still feeling bad and decided to call EMS.??? 1)Acute on Chronic Resp Failure+Acute Metabolic Encephalopathy Appreciate Spot Checker help ABG shows hypercarbia ?CAP C/w BIPAP, settings as per computer programmer c/w Ceftriaxone+Azithromycin Bronchodilators IV lasix c/w solumedrol Await DVT study Hold off CT head for now 2)Hyperkalemia: Received Lasix, hopefully potassium will come down 3)Parosxymal Afibb: Xarelto switched to lovenox c/w Cardizem, Dofetilide Await echo 4)DVT ppx: ON Lovenox 5)Code:Full 6)Dispo:pending improvement 12/14/2022 interval history: 57-year-old morbidly obese presented with a shortness of breath found to have a hypercapnic respiratory failure secondary hypoventilation patient was placed on BiPAP and his his respiratory acidosis and hypercapnia has improved, there is also concern patient has community-acquired pneumonia and being treated with azithromycin and ceftriaxone, will continue to monitor will have a PT OT evaluate the patient and further recommendation to follow. Subjective Date/time seen: 12/14/22 15:35 Interval history: 57 year old male with past medical history of obesity hypoventilation syndrome, paroxysmal atrial fibrillation on chronic anticoagulation, CHF and COPD who presented to the ER via EMS from home after sliding down to the floor and being unable to get up.? The patient reported to admitting provider that he has been feeling ill since this past Sunday.? He has been feeling generally fatigued, having sinus pressure, nasal congestion and postnasal drip.? Patient also reported having mild cough and subjective fever.? When EMS arrived to his home his temperature was 99.9? per patient report.? He has been on his chronic home O2 of 5 L. he states that when his symptoms have persisted until Sunday he called his primary care provider who wrote him a script for doxycycline.? Despite being on doxycycline for 3 days has total of 5 doses he was still feeling bad and decided to call EMS.??? 12/14/2022 interval history: 57-year-old morbidly obese presented with a shortness of breath found to have a hypercapnic respiratory failure secondary hypoventilation patient was placed on BiPAP and his his respiratory acidosis and hypercapnia has improved, there is also concern patient has community-acquired pneumonia and being treated with azithro
[2022-12-14] MEDS: RIVAROXABAN 20 MG TABLET PO (17:16)
[2022-12-15] VITALS (11 sets, daily range): BP systolic 129–158; BP diastolic 65–84; PULSE 64–84; RESP 16–24; TEMP 36.5–37; O2SAT 91–97
[2022-12-15] MEDS: IPRATROPIUM BR 0.02% INH SOLN 0.5 MG/2.5 ML VIAL INHALATION ×2 (02:21→08:06)
[2022-12-15] MEDS: ALBUTEROL SULFATE NEB 2.5 MG/3 ML INH INHALATION ×2 (02:21→08:06)
[2022-12-15] MEDS: AZITHROMYCIN 500 MG/NS 250 ML 500 MG/250 ML BAG 250 MG IVPB (04:01)
[2022-12-15 05:00] LABS: Hematocrit 35.5 % (42.0-52.0); Hemoglobin 10.9 g/dL (14.0-18.0); Mean Corpuscular HGB Conc 30.7 g/dl (32-36); Mean Corpuscular Hemoglobin 29.2 pg (26-34); Mean Corpuscular Volume 95.2 fl (80-100); Platelet Count Result 182 k/mm3 (150-375); Red Blood Count 3.73 M/mm3 (4.6-6.20); Red Cell Distribution Width 15.3 % (11.5-14.5); White Blood Count 10.1 K/mm3 (4.5-10.0)
[2022-12-15 05:09] LABS: Alveolar/Arterial O2 Gradient 103.9 mmHg; Base Excess ABG 11.4 mEq/l (+/-2.0); Carboxyhemoglobin 0.3 % THb (0-2.0); Device BIPAP; Expiratory Pressure 7 cmH2O; Fractional Inspired Oxygen 35 %; HCO3 ABG 37.4 mEq/l (22.0-26.0); Inspiratory Pressure 20 cmH2O; Methemoglobin ABG 0.2 %THb (0-1.5); Modified Allen's Test Pass; Oxygen Content ABG 16.3 %vol (16.0-22.0); Oxygen Saturation ABG 96.1 % (95.0-100.0); Oxyhemoglobin 94.6 % THb (90.0-100.0); PCO2 ABG 55.8 mmHg (35.0-45.0); PO2 ABG 80.8 mmHg (80.0-100.0); PO2 FiO2 Ratio Arterial Blood 2.31 %; Reduced Hemoglobin 4.9 %THb (0-5.0); Site Drawn RIGHT RADIAL; Total Hemoglobin 12.2 g/dL (12.0-18.0); pH ABG 7.444 (7.350-7.450)
[2022-12-15 05:15] LABS: Alanine Aminotransferase 20 U/L (6-50); Albumin Level 3.9 g/dL (3.5-5.1); Alkaline Phosphatase 60 U/L (38-126); Aspartate Amino Transferase 18 U/L (17-59); Bilirubin,Total 0.3 mg/dL (0.2-1.3); Blood Urea Nitrogen 27 mg/dL (9-20); Calcium 8.5 mg/dL (8.4-10.2); Carbon Dioxide > 40 mmol/L (22-30); Chloride 88 mmol/L (98-107); Estimated CRCL calculation 154 ml/min; Estimated Glomerular Filt Rate > 60; Glucose 154 mg/dL (65-110); Magnesium 2.6 mg/dL (1.6-2.3); Potassium 4.7 mmol/L (3.4-5.0); Sodium 132 mmol/L (137-145)
[2022-12-15] MEDS: dilTIAZem HCL CD 240 MG CAP.24HR PO (08:01)
[2022-12-15] MEDS: ROSUVASTATIN 10 MG TABLET 40 MG PO (08:01)
[2022-12-15] MEDS: MAGNESIUM OXIDE 400 MG TABLET PO (08:01)
[2022-12-15] MEDS: SERTRALINE HCL 50 MG TABLET 100 MG PO (08:01)
[2022-12-15] MEDS: methylPREDNISolone SOD SUCC 125 MG VIAL 60 MG IV PUSH (08:01)
[2022-12-15] MEDS: FOLIC ACID 1 MG TABLET PO (08:02)
[2022-12-15] MEDS: AZELASTINE HCL NASAL 0.1% 137 MCG/SPR 30 ML BTL 2 SPRAY NASAL (08:02)
[2022-12-15] MEDS: FUROSEMIDE INJ 40 MG/4 ML VIAL IV PUSH (08:02)
[2022-12-15] MEDS: BUDESONIDE RESPULE NEB 0.5 MG/2 ML AMP INHALATION (08:06)
[2022-12-15] MEDS: FLUTICASONE PROP 110 MCG INHALER 12 GM (*SP) 1 PUFF INHALATION (08:07)
--- NOTE | 2022-12-15 08:17 | WPDINTPN ---
Progress Note: A&P Assessment and Plan (1) Acute on chronic respiratory failure with hypercapnia: Code(s): J96.22 - Acute and chronic respiratory failure with hypercapnia Status: Acute Assessment and Plan: Patient has chronic obstructive and restrictive lung disease, he has chronic hypercapnic respiratory failure, congestive heart failure and COPD Patient also reported mild cough on presentation and chest x-ray was read as mild interstitial edema with small bilateral effusions Community-acquired pneumonia unlikely as patient has normal WBC 9.6 and negligible procalcitonin level. He has been afebrile. He took doxycycline for 1 and half days prior to admission and was started on Rocephin and azithromycin. I will switch him to p.o. Levaquin to complete a course for COPD exacerbation as I do not feel patient appears to have any evidence of pneumonia. Levaquin should cover for possible UTI as patient had abnormal UA also ABG reviewed and shows improvement Currently on nasal cannula. Continue biPAP 20/7 35% p.r.n. and at night Switch Lasix to p.o. Switch IV Solu-Medrol to PO prednisone taper Influenza and coronavirus PCR negative Bronchodilators, Echocardiogram reviewed PFT 11/24/2022 IMPRESSION:? This study shows an extremely severe obstructive ventilatory impairment with good response to bronchodilator, moderate restriction, moderate air trapping and a mild diffusion impairment that over corrects for alveolar volume. This is a mixed pattern which may represent more than one process.? Clinical correlation is recommended. No prior study for comparison. (2) CHF (congestive heart failure): Qualifiers: Heart failure type: diastolic Heart failure chronicity: acute on chronic Qualified Code(s): I50.33 - Acute on chronic diastolic (congestive) heart failure Code(s): I50.9 - Heart failure, unspecified Status: Acute Assessment and Plan: Echo Summary ? 1. Left ventricle very poorly imaged.? Grossly normal function.? A suggestion of normal size with LVH. Diastolic function was normal. ? 2. No obvious valvular abnormalities. ? 3. IV definity echo contrast used but did not improve imaging.? Very technically difficult study. ? 4. Normal sinus rhythm. (3) Obstructive sleep apnea on CPAP: Code(s): G47.33 - Obstructive sleep apnea (adult) (pediatric); Z99.89 - Dependence on other enabling machines and devices Status: Acute Assessment and Plan: Continue BiPAP at night (4) COPD (chronic obstructive pulmonary disease): Code(s): J44.9 - Chronic obstructive pulmonary disease, unspecified Status: Acute Assessment and Plan: See above (5) Community acquired pneumonia: Code(s): J18.9 - Pneumonia, unspecified organism Status: Acute Assessment and Plan: See above (6) Hyperkalemia: Code(s): E87.5 - Hyperkalemia Status: Acute Assessment and Plan: Patient presented with potassium of 5.5 which is likely multifactorial secondary to home Aldactone and acidosis Creatinine normal Patient received Lasix and potassium level has normalized (7) PAF (paroxysmal atrial fibrillation): Code(s): I48.0 - Paroxysmal atrial fibrillation Status: Acute Assessment and Plan: Continue Cardizem and dofetilide Continue xarelto Currently in sinus rhythm (8) UTI (urinary tract infection): Code(s): N39.0 - Urinary tract infection, site not specified Status: Acute Assessment and Plan: UA abnormal and suggestive of UTI although urine culture was negative Patient is on Rocephin which will be switched to p.o. Levaquin Plan DVT prophylaxis -therapeutic anticoagulation Nutrition -start diet Code Status - Full Code Consult dietitian and case loader operator Incentive spirometry PT OT Transfer out of ICU today Subjective Date/time seen: 12/15/22 Overnight events reviewed. Afebrile Patient wore BiPAP overnight and now
[2022-12-15] MEDS: FUROSEMIDE 40 MG TABLET PO (09:49)
[2022-12-15] MEDS: levoFLOXacin 750 MG TABLET PO (09:49)
[2022-12-15] MEDS: predniSONE 10 MG TABLET 40 MG PO (09:50)
--- NOTE | 2022-12-15 11:42 | PCFNICU ---
ICU Rounding Note: Pt current nutrition is Heart Healthy. Last recorded weight is 186 kg. Bowel Motility:+BM reported 12/12 Labs Reviewed:Mg 2.6,Glu 154, BUN 27,Na 132, Hct 35.5,Hgb 10.9 Meds Noted:Zoloft, Crestor, Mag ox, Folic Acid Skin: WNL Additional Notes: Patient is consuming 100% of heart healthy diet. Agree with diet orders. Following daily in ICU rounds and monitoring for length of stay every 7 days.
--- NOTE | 2022-12-15 11:59 | PM.DS ---
DS: Admitting Diagnosis Discharge Date 12/15/2022 Admitting Diagnosis Chest pain and weakness DS: Discharge Diagnosis Discharge Diagnosis (1) PAF (paroxysmal atrial fibrillation): Code(s): I48.0 - Paroxysmal atrial fibrillation Status: Acute (2) Hyperkalemia: Code(s): E87.5 - Hyperkalemia Status: Acute (3) Community acquired pneumonia: Code(s): J18.9 - Pneumonia, unspecified organism Status: Acute (4) COPD (chronic obstructive pulmonary disease): Code(s): J44.9 - Chronic obstructive pulmonary disease, unspecified Status: Acute (5) Acute on chronic respiratory failure with hypercapnia: Code(s): J96.22 - Acute and chronic respiratory failure with hypercapnia Status: Acute (6) Acute hyponatremia: Code(s): E87.1 - Hypo-osmolality and hyponatremia Status: Acute Plan ?57 year old male with past medical history of obesity hypoventilation syndrome, paroxysmal atrial fibrillation on chronic anticoagulation, CHF and COPD who presented to the ER via EMS from home after sliding down to the floor and being unable to get up.? The patient reported to admitting provider that he has been feeling ill since this past Sunday.? He has been feeling generally fatigued, having sinus pressure, nasal congestion and postnasal drip.? Patient also reported having mild cough and subjective fever.? When EMS arrived to his home his temperature was 99.9? per patient report.? He has been on his chronic home O2 of 5 L. he states that when his symptoms have persisted until Sunday he called his primary care provider who wrote him a script for doxycycline.? Despite being on doxycycline for 3 days has total of 5 doses he was still feeling bad and decided to call EMS.??? 1)Acute on Chronic Resp Failure+Acute Metabolic Encephalopathy Appreciate Shuffle Board Operator help ABG shows hypercarbia ?CAP C/w BIPAP, settings as per security architect c/w Ceftriaxone+Azithromycin Bronchodilators IV lasix c/w solumedrol Await DVT study Hold off CT head for now 2)Hyperkalemia: Received Lasix, hopefully potassium will come down 3)Parosxymal Afibb: Xarelto switched to lovenox c/w Cardizem, Dofetilide Await echo 4)DVT ppx: ON Lovenox 5)Code:Full 6)Dispo:pending improvement 12/14/2022 interval history: 57-year-old morbidly obese presented with a shortness of breath found to have a hypercapnic respiratory failure secondary hypoventilation patient was placed on BiPAP and his his respiratory acidosis and hypercapnia has improved, there is also concern patient has community-acquired pneumonia and being treated with azithromycin and ceftriaxone, will continue to monitor will have a PT OT evaluate the patient and further recommendation to follow. DS: Summary Hospital Course Reason for hospitalization: Chief Complaint: Chest pain and weakness Narrative: 57-year-old male with past medical history of obesity hypoventilation syndrome, paroxysmal atrial fibrillation on chronic anticoagulation, CHF and COPD who presented to the ER via EMS from home after sliding down to the floor and being unable to get up.? The patient reported the he has been feeling ill since this past Sunday.? He has been feeling generally fatigued, having sinus pressure, nasal congestion and postnasal drip.? Is been having a mild cough.? He reports having subjective fever.? When EMS arrived to his home his temperature was 99.9? per patient report.? He has been on his chronic home O2 of 5 L. he states that when his symptoms have persisted until Sunday he called his primary care provider who wrote him a script for doxycycline.? Despite being on doxycycline for 3 days has total of 5 doses he was still feeling bad and decided to call EMS.? He reports that he was unable to stand up after he slid down onto the floor.? When new straining to try to get up he did have some chest discomfort.? He did receive some nitroglycerin and aspirin per EMS.? He reports that
== END 2022-12-15 15:20 | disposition home health service (06) | DRG 189 ==
LOC: ANHED 12-13 04:01 → ANHIMU 12-13 04:37 → ANHICU 12-13 04:59
PROVIDERS: Internal Medicine; Admitting Provider Internal Medicine; Emergency Provider Emergency Medicine; PCP Nurse Practitioner Family; Visit Provider Family Medicine
DX: J96.21 Acute and chronic respiratory failure with hypoxia (principal); G93.41 Metabolic encephalopathy; I50.33 Acute on chronic diastolic (congestive) heart failure; E66.2 Morbid (severe) obesity with alveolar hypoventilation; Z68.43 Body mass index [BMI] 50.0-59.9, adult; J44.1 Chronic obstructive pulmonary disease with (acute) exacerbation; E87.1 Hypo-osmolality and hyponatremia; J96.22 Acute and chronic respiratory failure with hypercapnia; I11.0 Hypertensive heart disease with heart failure; I10 Essential (primary) hypertension; E87.5 Hyperkalemia; G62.9 Polyneuropathy, unspecified; R73.03 Prediabetes; I48.0 Paroxysmal atrial fibrillation; Z79.01 Long term (current) use of anticoagulants; Z90.49 Acquired absence of other specified parts of digestive tract; Z99.81 Dependence on supplemental oxygen; Z20.822 Contact with and (suspected) exposure to COVID-19
CPT/HCPCS: 36415; 36600; 71045; 80048; 80053; 81001; 82375; 82805; 83050; 83690; 83735; 83880; 84145; 84484; 85025; 85027; 85610; 85730; 87040; 87086; 87636; 93005; 93970; 94002; 94003; 94640; 96361; 96365; 96375; 97161; 97165; 99285; A9270; C8929; G0378; J0456; J0696; J1940; J2930; J7030; J7512; Q9957

== ENCOUNTER 2022-12-25 09:58 | Outpatient (CLI) | payer OTHER, SELFPAY ==
--- NOTE | 2022-12-25 10:05 | ECHO_ITS ---
Patient Info Name: Justo Hancock Age: 57 years : 1965 Gender: Male Ht: 72 in Wt: 390 lbs BSA: 3.09 m2 HR: 78 bpm BP: 129 / 62 mmHg Heart Rhythm: Sinus Rhythm Technical Quality: Poor Exam Date: 12/25/2022 10:23 AM Exam Location: [facility] Patient Status: Outpatient Admit Date: 12/25/2022 Staff Ordering Physician: Moose Zelaya DO Hull Grinder: Woo Mcginnis RDCS Attending Provider: Moose Zelaya DO Referring Physician: Garcia SWIFT; Exam Type: CA echo dop color flow w con Study Info Indications - Localized edema Complete two-dimensional, color flow and Doppler transthoracic echocardiogram is performed with contrast to opacify the left ventricle and to improve the deliniation of the left ventricle endocardial borders. Reason for Poor Study: poor echocardiographic windows History/Risk Factors Hypertension: Yes Summary 1. Technically suboptimal study due to poor sonographic images. 2. Definity contrast administered improved wall motion interpretation. 3. Left ventricular chamber dimension is normal. 4. Left ventricular systolic function is normal, estimated at 65-70%. 5. There is mild concentric increased left ventricular wall thickness. 6. The left ventricular diastolic function is normal. 7. E/e' 6 is not elevated. 8. No pulmonary hypertension, estimated pulmonary arterial systolic pressure is 12 mmHg. Left Ventricle Definity contrast administered improved wall motion interpretation. E/e' 6 is not elevated. Technically suboptimal study due to poor sonographic images. Left ventricular chamber dimension is normal. Left ventricular systolic function is normal, estimated at 65-70%. There is mild concentric increased left ventricular wall thickness. The left ventricular diastolic function is normal. Right Ventricle Right ventricular systolic function is normal and with normal TAPSE 3.3 cm. Right ventricular chamber dimension is normal. Left Atria Left atrial chamber dimension is normal. Right Atria Right atrial chamber dimension is normal. Aortic Valve The aortic valve is trileaflet. There is no aortic valve stenosis. There is no aortic valve regurgitation. Pulmonic Valve There is no pulmonic regurgitation. Mitral Valve There is no mitral valve stenosis. There is no mitral valve regurgitation. Tricuspid Valve There is no tricuspid valve regurgitation. No pulmonary hypertension, estimated pulmonary arterial systolic pressure is 12 mmHg. Pericardium/Pleural There is no pericardial effusion. Inferior Vena Cava Normal inferior vena cava with >50% collapse upon inspiration consistent with normal right atrial pressure, 5 mmHg. Aorta The aortic root size at the sinus of Valsalva is normal. Left Ventricular Outflow Tract Name Value Normal LVOT 2D LVOT Diameter 1.99 cm LVOT Doppler LVOT Peak Velocity 76.94 cm/s LVOT Peak Gradient 2 mmHg LVOT Mean Gradient 2 mmHg LVOT VTI 20.65 cm LVOT VTI/AV VTI Ratio 1.22 LVOT Stroke Volume 64.31 ml Pulmonic Valve
== END 2022-12-25 09:59 | disposition home or self-care (01) ==
LOC: CHSIMG 10:01
PROVIDERS: PCP Nurse Practitioner Family; Visit Provider Internal Medicine Cardiovascular Disease
DX: R60.0 Localized edema (principal)
CPT/HCPCS: C8929

== ENCOUNTER 2023-08-22 11:06 | Outpatient (CLI) | payer MEDICARE, SELFPAY ==
[2023-08-22 15:55] LABS: Basophils Absolute Auto 0.02 K/mm3 (0.00-0.10); Basophils Percent Auto 0.4 % (0.0-1.0); Eosinophils Absolute Auto 0.26 K/mm3 (0.02-0.50); Eosinophils Percent Auto 4.7 % (1.0-6.0); Hematocrit 35.4 % (40.0-54.0); Hemoglobin 10.7 g/dL (14.0-18.0); Immature Granulocyte Absolute 0.03 K/mm3 (0.00-0.00); Immature Granulocyte Percent A 0.5 % (0.0-0.0); Lymphocytes Absolute Auto 0.61 K/mm3 (1.10-4.50); Mean Corpuscular HGB Conc 30.2 g/dL (32-36); Mean Corpuscular Hemoglobin 28.7 pg (27.0-31.0); Mean Corpuscular Volume 94.9 fL (78.0-102.0); Mean Platelet Volume 11.1 fl (8.7-11.0); Monocytes Absolute Auto 0.37 K/mm3 (0.10-0.90); Monocytes Percent Auto 6.7 % (2.0-11.0); Neutrophils Absolute Auto 4.27 K/mm3 (1.70-7.20); Neutrophils Percent Auto 76.7 % (50.0-70.0); Platelet Count Result 158 K/mm3 (150-420); Red Blood Count 3.73 M/mm3 (4.70-6.10); Red Cell Distribution Width 13.6 % (11.6-14.4); White Blood Count 5.6 K/mm3 (4.8-10.8)
[2023-08-22 16:02] LABS: Anion Gap 7 mmol/L (4-12); Blood Urea Nitrogen 12 mg/dL (7-18); Calcium 8.8 mg/dL (8.5-10.1); Carbon Dioxide 33 mmol/L (21-32); Chloride 98 mmol/L (98-108); Estimated Glomerular Filt Rate > 60; Glucose 102 mg/dL (70-99); Hemoglobin A1C 5.6 % (<5.7); Osmolality Calculated 285 mOsm/kg (285-295); Sodium 138 mmol/L (136-145)
[2023-08-22 16:03] LABS: Alanine Aminotransferase 20 U/L (16-63); Albumin Level 3.5 g/dL (3.4-5.0); Aspartate Amino Transferase 14 U/L (15-37); Bilirubin,Total 0.4 mg/dL (0.00-1.00); Ferritin 99 ng/mL (26-388); Iron 38 ug/dL (65-175); Magnesium 1.6 mg/dL (1.8-2.4); Percent Iron Saturation 13 % (12-57); Total Protein 7.2 g/dL (6.4-8.2); Triglycerides 110 mg/dL (0-150)
[2023-08-22 16:04] LABS: Alkaline Phosphatase 91 U/L (46-116); Cholesterol 153 mg/dL (0-200); HDL Direct 59 mg/dL (40-60); LDL Cholesterol Calculated 72 mg/dL (<130)
[2023-08-24 02:00] LABS: Vitamin D 25 Hydroxy 34 ng/mL (30-100)
== END 2023-08-22 11:07 | disposition home or self-care (01) ==
LOC: CHSLAB 11:07
PROVIDERS: PCP Nurse Practitioner Family; Visit Provider Nurse Practitioner Family
DX: Z99.89 Dependence on other enabling machines and devices (principal); G47.33 Obstructive sleep apnea (adult) (pediatric); Z71.89 Other specified counseling; E66.01 Morbid (severe) obesity due to excess calories; I50.33 Acute on chronic diastolic (congestive) heart failure; R73.03 Prediabetes
CPT/HCPCS: 36415; 80053; 80061; 82306; 82728; 83036; 83540; 83550; 83735; 85025

== ENCOUNTER 2023-10-24 09:26 | Outpatient (CLI) | payer MEDICARE, SELFPAY ==
--- NOTE | ~2023-10-24 | XR_ITS ---
Cervical Spine: AP, lateral, open-mouth views Clinical History: Pain Findings: The normal lordotic curve is maintained. No definite fracture or subluxation seen. There is somewhat suboptimal visualization of the lower cervical spine. There is probable mild to moderate de generative disc changes at the cervical spine and probable mild to moderate facet arthropathy through out. Pre-vertebral soft tissues are unremarkable. Impression: [id number] degenerative spondylosis. Suboptimal visualization of the lower cervical spine. Reviewed, dictated and finalized at location . Impression: [id number] degenerative spondylosis. Suboptimal visualization of the lowe r cervical spine.
--- NOTE | ~2023-10-24 | XR_ITS ---
Lumbosacral Spine: AP and lateral views Clinical History: Pain Findings: The normal lordotic curve is maintained. The vertebral bodies and posterior elements are i ntact. There is mild degenerative disc change at L4-L5 and L5-S1. There is moderate to advanced facet arthropathy, especially from L3 through S1. The sacroiliac joints are normally outlined. Impression: Moderate degenerative spondylosis, especially the lower lumbar spine, as above. Reviewed, dictated and finalized at location M. Impression: Moderate degenerative spondylosis, especially the lower lumbar spine, as above.
[2023-10-26 06:14] LABS: CA-125 11 U/mL (<35)
== END 2023-10-24 09:27 | disposition home or self-care (01) ==
PROVIDERS: PCP Nurse Practitioner Family; Visit Provider Nurse Practitioner Family
DX: M54.9 Dorsalgia, unspecified (principal); M54.2 Cervicalgia; R19.09 Other intra-abdominal and pelvic swelling, mass and lump; Z80.0 Family history of malignant neoplasm of digestive organs; M43.06 Spondylolysis, lumbar region; M43.02 Spondylolysis, cervical region
CPT/HCPCS: 36415; 72040; 72100; 86304

== ENCOUNTER 2024-02-05 16:25 | Outpatient (NON) | payer MEDICARE, SELFPAY ==
[2024-02-05 16:34] LABS: Appearance Urine Clear (Clear); Bilirubin Urine Negative (Negative); Blood Urine Trace-intact (Negative); Color Urine Light Yellow (Yellow); Glucose Urine UA Negative (Negative); Ketones Urine Negative (Negative); Leukocyte Esterase Ur Negative LEU/UL (Negative); Nitrate Urine Negative (Negative); Protein Urine Negative (Negative); Specific Grav Ur 1.025 (1.010-1.020); Urobilinogen Urine 0.2 mg/dL (0.2-1.0)
[2024-02-05 16:58] LABS: Add Urine Microscopic? YES; Bacteria Urine 1+ /hpf; RBC Urine 0-2 /hpf (0-2); Squamous Epithelial Cell Urine Few /hpf (Few); WBC Urine 0-3 /hpf (0-3)
== END 2024-02-05 16:26 | disposition home or self-care (01) ==
LOC: CHSLAB 16:27
PROVIDERS: Visit Provider Nurse Practitioner Family
DX: R39.9 Unspecified symptoms and signs involving the genitourinary system (principal)
CPT/HCPCS: 81001

== ENCOUNTER 2024-05-16 14:03 | Outpatient (CLI) | payer MEDICARE, SELFPAY ==
[2024-05-16 14:18] LABS: Basophils Absolute Auto 0.03 K/mm3 (0.00-0.10); Basophils Percent Auto 0.4 % (0.0-1.0); Eosinophils Absolute Auto 0.36 K/mm3 (0.02-0.50); Eosinophils Percent Auto 4.3 % (1.0-6.0); Hematocrit 36.3 % (40.0-54.0); Hemoglobin 11.7 g/dL (14.0-18.0); Immature Granulocyte Absolute 0.06 K/mm3 (0.00-0.00); Immature Granulocyte Percent A 0.7 % (0.0-0.0); Lymphocytes Absolute Auto 0.86 K/mm3 (1.10-4.50); Lymphocytes Percent Auto 10.3 % (18.0-42.0); Mean Corpuscular HGB Conc 32.2 g/dL (32-36); Mean Corpuscular Hemoglobin 29.6 pg (27.0-31.0); Mean Corpuscular Volume 91.9 fL (78.0-102.0); Monocytes Absolute Auto 0.47 K/mm3 (0.10-0.90); Monocytes Percent Auto 5.6 % (2.0-11.0); Neutrophils Absolute Auto 6.56 K/mm3 (1.70-7.20); Neutrophils Percent Auto 78.7 % (50.0-70.0); Platelet Count Result 188 K/mm3 (150-420); Red Blood Count 3.95 M/mm3 (4.70-6.10); Red Cell Distribution Width 14.6 % (11.6-14.4); White Blood Count 8.3 K/mm3 (4.8-10.8)
[2024-05-16 14:29] LABS: Hemoglobin A1C 5.4 % (<5.7)
[2024-05-16 15:02] LABS: Alanine Aminotransferase 34 U/L (16-63); Albumin Level 3.8 g/dL (3.4-5.0); Alkaline Phosphatase 84 U/L (46-116); Anion Gap 7 mmol/L (4-12); Aspartate Amino Transferase 21 U/L (15-37); Bilirubin,Total 0.7 mg/dL (0.00-1.00); Blood Urea Nitrogen 11 mg/dL (7-18); Calcium 9.2 mg/dL (8.5-10.1); Carbon Dioxide 30 mmol/L (21-32); Chloride 99 mmol/L (98-108); Cholesterol 155 mg/dL (0-200); Estimated Glomerular Filt Rate > 60; Ferritin 91 ng/mL (26-388); Glucose 113 mg/dL (70-99); HDL Direct 58 mg/dL (40-60); Iron 34 ug/dL (65-175); LDL Cholesterol Calculated 78 mg/dL (<130); Magnesium 1.8 mg/dL (1.8-2.4); Osmolality Calculated 282 mOsm/kg (285-295); Percent Iron Saturation 11 % (12-57); Sodium 136 mmol/L (136-145); Total Protein 7.3 g/dL (6.4-8.2); Triglycerides 97 mg/dL (0-150)
[2024-05-16 15:12] LABS: Prostate Specific Antigen < 0.1 ng/mL (< OR = 4.0)
== END 2024-05-16 14:04 | disposition home or self-care (01) ==
LOC: CHSLAB 14:04
PROVIDERS: PCP Nurse Practitioner Family; Visit Provider Nurse Practitioner Family
DX: R79.89 Other specified abnormal findings of blood chemistry (principal); J96.22 Acute and chronic respiratory failure with hypercapnia; J44.9 Chronic obstructive pulmonary disease, unspecified; E83.42 Hypomagnesemia; Z13.83 Encounter for screening for respiratory disorder NEC; Z13.89 Encounter for screening for other disorder; Z13.6 Encounter for screening for cardiovascular disorders; Z12.5 Encounter for screening for malignant neoplasm of prostate; R73.03 Prediabetes
CPT/HCPCS: 36415; 80053; 80061; 82728; 83036; 83540; 83550; 83735; 84153; 85025; G0103

== ENCOUNTER 2024-06-09 12:30 | Outpatient (CLI) | payer MEDICARE, SELFPAY ==
[2024-06-09 12:42] LABS: Base Excess ABG 2.4 mmol/L (0-2); HCO3 ABG 26.6 mmol/L (23-29); Oxygen Saturation ABG 92.9 % (95-97); Oxyhemoglobin 92.2 % (94-100); PCO2 ABG 39.7 mmHg (35-45); PO2 ABG 66.6 mmHg (80-90); pH ABG 7.44 (7.35-7.45)
[2024-06-09 12:55] LABS: Device ROOM AIR; Modified Allen's Test Pass; Site Drawn LEFT RADIAL
--- OUTSIDE RECORDS SUMMARY | 2024-06-09 13:04 | XMS_ITS | CONTINUITY OF CARE DOCUMENT ---
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 Name Role Phone Sadi RICKS, Woo Unavailable ALFONSO MACIAS Unavailable [phone] HOPALFONSO RUSS Unavailable [phone] PROBLEMS Condition Status Date Provider Notes Hyperlipidemia;with high crp active Shravan Mahmood MD Microalbuminuria active Shravan Mahmood MD Neuropathy active Marija Mccormack Abnormal stress nuclear scan - small apical defect active Woo Avitia MD HTN essential active Woo Avitia MD Morbid obesity active Woo Avitia MD Asthma active Woo Avitia MD FENG - On CPAP active Woo Avitia MD Diastolic CHF active Woo Avitia MD Afib active Woo Avitia MD Leg edema active Jeremías Faye Exposure to SARS-associated coronavirus;neg igg active Shravan Mahmood MD Elevated glucose completed - Shravan Mahmood MD Anemia, iron deficiency and folate def active Shravan Mahmood MD fokena bains PREDIABETES; active Shravan Mahmood MD Chest pain completed - Woo Avitia MD Shortness of breath active Ganga urrutia MD [place] active Woo Avitia MD COPD - on O2 active Woo Avitia MD ENCOUNTERS Date Type Provider Location Encounter Diag nosis - In-person encounter Office Visit Woo Avitia MD [place] [facility] - In-person encounter Office Visit Woo Avitia MD [facility] Chest painCOPD - on O2 - In-person encounter Office Visit Woo Avitia MD [facility] [place] - In-person encounter Office Visit Ganga Zavala MD [facility] Shortness of breath - In-person encounter Office Visit Shravan Mahmood MD [facility] Elevated glucoseAnemia, iron deficiency and folate defPREDIABETES; - In-person encounter Office Visit Woo Avitia MD [facility] FENG - On CPAP - In-person encounter Office Visit Alexei Kurtz MD [facility] AfibLeg edemaExposure to SARS-associated coronavirus;neg igg - In-person encounter Office Visit Woo Avitia MD [facility] HTN essentialMorbid obesityAsthmaOSA - On CPAPDiastolic CHF VITAL SIGNS Date Observation Value Provider Body Mass Index (Ratio) 53.83 kg/m2 Olegario b Nacht blood pressure, diastolic 73 mm[Hg] Li [facility]kLogic blood pressure, systolic 151 mm[Hg] Allyson [facility]Logic Inhaled O2 5 L/min Lucretia [place] blood pressure, diastolic 73 mm[Hg] Ca therine Andrea blood pressure, systolic 151 mm[Hg] Cat herine Andrea oxygen saturation, oximetry 98 % Lucretia [place] respiratory rate E&M 16 /min Catheri ne Andrea pulse rate 78 /min Lucretia [place] weight E&M 386 [lb_av] Lucretia Andrea blood pressure, cuff size large Ca therine [place] height E&M 71 [in_i] Lucretia Andrea Body Mass Index (Ratio) 47.14 kg/m2 Teresa Avitia MD weight E&M 338 [lb_av] Woo Avitia MD height E&M 71 [in_i] Woo Avitia MD height E&M 71 [in_i] Woo Avitia MD Inhaled O2 4 L/min Woo Avitia MD height E&M 71 [in_i] Woo Avitia MD Body Mass Index (Ratio) 54.95 kg/m2 Niraj Ordoñez blood pressure, cuff size large Ke rri Gruenenfelder blood pressure, diastolic 90 mm[Hg] Ke rri Gruenenfelder blood pressure, systolic 150 mm[Hg] Ker ri Gruenenfelder oxygen saturation, oximetry 96 % Meghana Gruenenfelder respiratory rate E&M 18 /min Meghana G ruenenfelder pulse rate 94 /min Meghana Gruenenfe lder weight E&M 394 [lb_av] Meghana Gruenenfe lder height E&M 71 [in_i] Meghana Gruenenfe lder Body Mass Index (Ratio) 53.97 kg/m2 Stas Zavala MD blood pressure, cuff size large Ke rri Gruenenfelder blood pressure, diastolic 80 mm[Hg] Ke rri Gruenenfelder blood pressure, systolic 142 mm[Hg] Ker ri Gruenenfelder oxygen saturation, oximetry 96 % Meghana Gruenenfelder respiratory rate E&M 18 /min Meghana G ruenenfelder pulse rate 135 /min Meghana Gruenenfe lder weight E&M 387 [lb_av] Meghana Gruenenfe [facility] height E&M 71 [in_i] Meghana Gruenenfe [facility] Body Mass Index (Ratio) 53.27 kg/m2 Linda Mahmood MD pulse rate 97 /min [facility] blood pressure, diastolic 82 mm[Hg] Br ittany Block blood pressure, systolic 138 mm[Hg] Eugenia ttany [facility] oxygen saturation, oximetry 94 % [facility] weight E&M 382 [lb_av] [facility] Block respiratory rate E&M 16 /min [facility] Block height E&M 71 [in_i] [facility] Body Mass Index (Ratio) 52.85 kg/m2 Niraj n Kyte blood pressure, cuff size large Ke rri Gruenenfelder blood pressure, diastolic 84 mm[Hg] Ke rri Gruenenfelder blood pressure, systolic 114 mm[Hg] Kendrick ri Shebanenfelder oxygen saturation, oximetry 97 % Meghana Shebanenfelder respiratory rate E&M 20 /min Meghana G ruenenfelder pulse rate 103 /min Meghana Gruenenfe er weight E&M 379 [lb_av] Meghana Gruenenfe lder height E&M 71 [in_i] Meghana Gruenenfe [facility] height E&M 71 [in_i] Woo Avitia MD Body Mass Index (Ratio) 54.25 kg/m2 Jonathon Faye oxygen saturation, oximetry 94 % [facility] pulse rate 81 /min [facility] respiratory rate E&M 18 /min [facility] blood pressure, diastolic, left arm 86 mm [Hg] [facility] blood pressure, systolic, left arm 140 mm [Hg] [facility] blood pressure, diastolic, right arm 81 m m[Hg] [facility] blood pressure, systolic, right arm 138 m m[Hg] [facility] blood pressure, diastolic 86 mm[Hg] [facility] blood pressure, systolic 140 mm[Hg] [facility] temperature E&M 98.4 [degF] [facility] temperature site temporal [facility] weight E&M 389 [lb_av] [facility] height E&M 71 [in_i] [facility] blood pressure, diastolic 104 mm[Hg] [facility] blood pressure, systolic 177 mm[Hg] [facility] blood pressure, resting Yes [facility] oxygen saturation, oximetry 95 % [facility] respiratory rate E&M 18 /min [facility] pulse rate 61 /min [facility] Body Mass Index (Ratio) 53.69 kg/m2 [facility] weight in kilograms E&M 174.63 kg [facility] weight E&M 385 [lb_av] [facility] temperature in centigrade E&M 37.17 Kathy [facility] temperature E&M 98.9 [degF] [facility] height in centimeters E&M 180.34 cm [facility] height E&M 71 [in_i] [facility] ALLERGIES Allergy Name Onset Date Reaction Criticality Status PENICILLIN Low Criticality active RESULTS Date Observation Value Provider Reference Range Interpretation Location c-reactive protein, quantitative, serum 18.78 mg/L [facility] 0.00-3.00 High microalbumin/creati nine ratio, urine 34 MG/G CREAT [facility] 0-29 High microalbumin, random, urine 3.24 mg/dL [facility] Units converted. See lab report for original value. creatinine, random, urine 95.2 mg/dL [facility] Not Estab. ferritin, serum 41 ng/mL [facility] 30-400 iron saturation percent, serum 15 % [facility] 15-55 iron, serum 63 ug/dL [facility] 38-169 iron binding capacity, unsaturated 346 ug/dL [facility] 111-343 High iron binding capacity, total 409 ug/dL [facility] 071-080 4872/11 /21 free thyroxine index 1.4 [facility] 1.2-4.9 triiodothyronine resin uptake 27 % [facility] 24-39 thyroxine, serum, total 5.0 ug/dL [facility] 4.5-12.0 thyroid stimulating hormone, serum 2.570 u[IU]/mL [facility] 0.450-4.500 B-12, serum 509 pg/mL [facility] 232-1245 rapid plasma reagin antibody screen Non Reactive [facility] Non Reactive pro brain natriuretic peptide 797 pg/mL [facility] 0-121 High digoxin level, serum 0.4 ng/mL [facility] 0.5-0.9 Low folate, serum 2.7 ng/mL [facility] >3.0 Low hemoglobin A1C, blood, as % of total hemoglobin 5.8 % [facility] 4.8-5.6 High lipoprotein, beta, serum, point, quantitative, calculated 83 mg/dL [facility] 0-99 HDL cholesterol, serum 75 mg/dL [facility] >39 triglyceride, serum, random 83 mg/dL [facility] 0-149 cholesterol, serum 173 mg/dL [facility] 348-924 0513/11 /21 basophil count, absolute 0.0 x10E3/uL [facility] 0.0-0.2 Eosinophil Absolute Count 0.3 X10E3/UL [facility] 0.0-0.4 monocyte count, blood, automated 0.7 X10E3/UL [facility] 0.1-0.9 lymphocyte count, blood, automated 0.9 X10E3/UL [facility] 0.7-3.1 Absolute Neutrophils 8.5 X10E3/UL [facility] 1.4-7.0 High basophils as percent of blood leukocytes 0 % [facility] Not Estab. eosinophils as percent of blood leukocytes 3 % [facility] Not Estab. monocytes as percent of blood leukocytes 7 % [facility] Not Estab. lymphocytes as percent of blood leukocytes 9 % [facility] Not Estab. neutrophils as percent of blood leukocytes 80 % [facility] Not Estab. platelet count 232 X10E3/UL [facility] 666-509 2271/11 /21 red blood cell distribution width 14.8 % [facility] 11.6-15.4 mean corpuscular hemoglobin concentration, RBC 32.6 G/DL [facility] 31.5-35.7 mean corpuscular hemoglobin, RBC 27.4 pg [facility] 26.6-33.0 mean corpuscular volume, RBC 84 fL [facility] 79-97 hematocrit, blood 40.2 % [facility] 37.5-51.0 hemoglobin, blood 13.1 g/dL [facility] 13.0-17.7 erythrocyte (RBC) count 4.78 X10E6/UL [facility] 4.14-5.80 leukocyte count, blood 10.5 X10E3/UL [facility] 3.4-10.8 alanine aminotransferase (SGPT), serum 14 1/L [facility] 0-44 aspartate aminotransferase (SGOT), serum 13 1/L [facility] 0-40 alkaline phosphatase, serum 98 1/L [facility] 39-117 bilirubin, serum, total 0.5 mg/dL [facility] 0.0-1.2 albumin/globulin ratio, serum 1.[address] [facility] 1.2-2.2 globulin, serum 2.[address] [facility] 1.5-4.5 albumin, serum 4.4 g/dL [facility] 3.8-4.9 protein, total, serum 7.3 g/dL [facility] 6.0-8.5 calcium, serum 9.5 mg/dL [facility] 8.7-10.2 carbon dioxide, venous blood 28 mmol/L [facility] 20-29 chloride, serum 97 mmol/L [facility] 96-106 potassium, serum 4.7 mmol/L [facility] 3.5-5.2 sodium, serum 139 mmol/L [facility] 620-980 2913/11 /21 urea nitrogen/creatinine ratio, serum [address] [facility] 9-20 eGFR if 107 mL/min/{1.7 3_m2} [facility] e[facility] if not 92 mL/min/{1.7 3_m2} [facility] creatinine, serum 0.94 mg/dL [facility] 0.76-1.27 urea nitrogen, blood 14 mg/dL [facility] 6-24 blood glucose, random 104 mg/dL [facility] 65-99 High digoxin level, serum 0.49 ng/mL [facility] troponin I <0.012 [facility] B-type natriuretic peptide 303 pg/mL [facility] thyroid stimulating hormone, serum 2.660 u[IU]/mL [facility] platelet count 180 10*3/uL [facility] red blood cell distribution width 15.1 % [facility] mean corpuscular hemoglobin concentration, RBC 30.6 g/dL [facility] mean corpuscular hemoglobin, RBC 27.5 pg [facility] mean corpuscular volume, RBC 89.9 fL [facility] hematocrit, blood 36.6 % [facility] hemoglobin, blood 11.2 g/dL [facility] erythrocyte (RBC) count 4.07 10*6/mm3 [facility] leukocyte count, blood 7.4 10*3/mm3 [facility] triglyceride, serum, fasting 99 mg/dL [facility] HDL cholesterol, serum 53 mg/dL [facility] LDL cholesterol, serum 107 mg/dL [facility] cholesterol, serum 180 mg/dL [facility] protein, total, serum 6.5 g/dL [facility] albumin, serum 3.5 g/dL [facility] bilirubin, serum, total 0.50 mg/dL [facility] alkaline phosphatase, serum 80 1/L [facility] alanine aminotransferase (SGPT), serum 18 1/L [facility] aspartate aminotransferase (SGOT), serum 22 1/L [facility] magnesium, serum 1.9 mg/dL [facility] calcium, serum 8.9 mg/dL [facility] blood glucose, random 119 mg/dL [facility] creatinine, serum 0.58 mg/dL [facility] urea nitrogen, blood 14 mg/dL [facility] carbon dioxide, serum, total 30 mmol/L [facility] chloride, serum 98 mmol/L [facility] potassium, serum 3.6 mmol/L [facility] sodium, serum 134 mmol/L [facility] HISTORY OF MEDICATION USE Medication Status Instructions Dates Provider Indications Com ments diltiazem HCl (Cardizem CD) 240 mg capsule,extended release 24hr completed TAKE 1 CAPSULE BY MOUTH EVERY DAY 05/23 - Aaliyah Arceo dofetilide 250 mcg capsule completed TAKE 1 CAPSULE BY MOUTH TWICE A DAY 12/12 - Aaliyah Adis Xarelto 20 mg tablet completed TAKE 1 TABLET BY MOUTH WITH EVENING MEAL DAILY 09/27 - Aaliyah Adis dofetilide 250 mcg capsule completed TAKE 1 CAPSULE BY MOUTH 2 TIMES A DAY. 09/06 - 12/12 Nicanor day dofetilide 250 mcg capsule completed TAKE 1 CAPSULE BY MOUTH TWICE A DAY 08/12 - 09/06 Leesa Che RN furosemide 40 mg tablet completed TAKE 1 TABLET BY MOUTH EVERY DAY 08/10 - Aaliyah Adis Xarelto 20 mg tablet completed Take 1 tablet by mouth once a day TAKE 1 TABLET BY MOUTH WITH EVENING MEAL DAILY 08/18 - 09/27 Amanda Jacobson dofetilide 250 mcg capsule completed Take 1 capsule by mouth twice a day 08/17 - 08/12 Meghana Casillas Xarelto 20 mg tablet completed TAKE 1 TABLET BY MOUTH WITH EVENING MEAL DAILY 08/11 - 08/18 Woo Avitia MD diltiazem HCl 240 mg capsule,extended release 24hr completed Take 1 capsule by mouth once a day 07/23 - 05/23 Nicanor furosemide 40 mg tablet completed Take 1 tablet by mouth once a day 07/23 - 08/10 Gaye Robertson rosuvastatin 40 mg tablet completed Take 1 tablet by mouth once a day - Aaliyah Adis ammonium lactate 12% lotion completed APPLY 1 APPLICATION TOPICALLY TWICE A DAY NEEDED - Aaliyah Adis dofetilide 250 mcg capsule completed TAKE 1 CAPSULE BY MOUTH TWICE A DAY 06/16 - 08/17 Woo Avitia MD magnesium oxide 400 mg (241.3 mg magnesium) tablet completed TAKE 1 TABLET BY MOUTH TWICE A DAY 06/16 - Aaliyah Adis folic acid 1 mg tablet completed TAKE 1 TABLET BY MOUTH EVERY DAY 06/16 - Aaliyah Arceo furosemide 40 mg tablet completed TAKE 1 TABLET BY MOUTH EVERY DAY 06/16 - 07/23 Jenniffer Meyer metformin 500 mg tablet completed TAKE 1 TABLET BY MOUTH EVERY DAY 05/22 - 07/21 Norma Bustamante diltiazem HCl 240 mg capsule,extended release 24hr completed TAKE 1 CAPSULE BY MOUTH EVERY DAY 01/28 - 07/23 Sancho Castro [employer] 9-4.8 mcg HFA aerosol inhaler completed 11/04 - Aaliyah Arceo dofetilide 250 mcg capsule completed Take 1 capsule by mouth twice a day 07/08 - 06/16 [employer] CRESTOR 20 MG ORAL TABLET completed ONE TAB. DAILY 06/05 - 12/24 Meghana Casillas folic acid 1 mg tablet completed 1 tablet by mouth once a day 06/05 - 06/16 Shravan Mahmood MD FERROUS SULFATE 325 (65 FE) MG ORAL TABLET completed ONE PER DAY 06/05 - 12/24 Meghana Casillas metformin 500 mg tablet completed tablet by mouth once a day 05/15 - 05/22 Shravan Mahmood MD magnesium oxide 400 mg (241.3 mg magnesium) tablet completed 1 tablet by mouth twice a day 06/02 - 06/16 Rigo Gastonxela Inhub 500-50 mcg/dose blister with device completed Take 1 puff by mouth twice a day - 07/21 Meghana Casillas #60, 30 days supply, Prescribed by ALFONSO MACIAS, Filled 03/08/2020 amitriptyline 100 mg tablet completed Take 1 tablet by mouth once a day 08/03 - Aaliyah Arceo #30, 30 days supply, Prescribed by BOBBY SÁNCHEZ, Filled 03/26/2020 OZEMPIC (1 MG/DOSE) 2 MG/1.5ML SUBCUTANEOUS SOLUTION PEN-INJECTOR completed inject 1mg subcutaneously once weekly reduces risk of major CV events - 05/15 Shravan Mahmood MD Lipitor 40 mg tablet completed 1 tablet by mouth once a day - 07/21 Shravan Mahmood MD MULTAQ 400 MG ORAL TABLET completed ONE TAB WITH MORNING MEAL. ONE TAB WITH EVENING MEAL. - 06/20 Woo Avitia MD cyanocobalamin (vitamin B-12) 1,000 mcg tablet completed Dissolve 1 tablet under tongue once a day 02/01 - 07/21 Shravan Mahmood MD #30, 30 days supply, Prescribed by ALFONSO MACIAS, Filled 02/06/2020 SHINGRIX 50 MCG/0.5ML INTRAMUSCULAR SUSPENSION RECONSTITUTED completed 02/07 - 12/24 Meghana Casillas #1, 1 days supply, Prescribed by DIVYA NUR, Filled 02/08/2020 FLUCELVAX QUADRIVALENT 0.5 ML INTRAMUSCULAR SUSPENSION PREFILLED SYRINGE completed PHARMACY ADMINISTERED 02/07 - 12/24 Meghana Casillas #0.5, 1 days supply, Prescribed by DIVYA NUR, Filled 02/08/2020 gabapentin 300 mg capsule completed capsule by mouth 02/05 - 07/21 Shravan Mahmood MD #90, 30 days supply, Prescribed by ALFONSO MACIAS, Filled 03/04/2020 DIGOXIN 125 MCG ORAL TABLET completed ONE TAB. DAILY - 12/24 Meghana Casillas sertraline 100 mg tablet completed 1 tablet by mouth once a day 05/29 - 07/21 Woo Avitia MD #30, 30 days supply, Prescribed by BOBBY SÁNCHEZ, Filled 02/17/2020 TESTOSTERONE CYPIONATE 200 MG/ML INTRAMUSCULAR SOLUTION completed 12/24 - 12/24 Meghana Casillas #3, 28 days supply, Prescribed by ARELY HOPSON, Filled 02/18/2020 Cardizem CD 240 mg capsule,extended release 24hr completed 1 capsule daily 12/08 - 01/28 Woo Avitia MD Xarelto 20 mg tablet completed Take 1 tablet by mouth every night 01/01 - 08/11 Woo Avitia MD KLOR-CON M20 20 MEQ ORAL TABLET EXTENDED RELEASE completed one tab daily 10/14 - 12/24 Meghana Casillas furosemide 40 mg tablet completed Take 1 tablet by mouth once a day 09/02 - 06/16 Jonathon Turner DOXYCYCLINE HYCLATE 100 MG ORAL CAPSULE completed TAKE 1 CAPSULE BY MOUTH TWICE A DAY FOR 7 DAYS 09/23 - 11/09 Jeremías Faye #14, 7 days supply, Prescribed by ALFONSO MACIAS, Filled 09/24/2019 ALBUTEROL SULFATE HFA 108 (90 BASE) MCG/ACT INHALATION AEROSOL SOLUTION completed TAKE 2 PUFFS BY MOUTH EVERY 4 HOURS NEEDED 09/23 - Shravan Mahmood MD #8.5, 17 days supply, Prescribed by ALFONSO MACIAS, Filled 09/24/2019 lisinopril 40 mg tablet completed Take 1 tablet by mouth once a day 09/25 - Aaliyah Arceo #30, 30 days supply, Prescribed by ALFONSO MACIAS, Filled 09/26/2019 omeprazole 40 mg capsule,delayed release(DR/EC) completed Take 1 capsule by mouth once a day 05/29 - Aaliyah Arceo #30, 30 days supply, Prescribed by BOBBY SÁNCHEZ, Filled 10/03/2019 SYMBICORT 160-4.5 MCG/ACT INHALATION AEROSOL completed INHALE 2 PUFFS BY MOUTH EVERY 12 HOURS WITH THE SPACER 10/09 - Shravan Mahmood MD #10.2, 30 days supply, Prescribed by VESNA KIM, Filled 10/10/2019 PREDNISONE 20 MG ORAL TABLET completed TAKE 2 TABLETS BY MOUTH EVERY MORNING 10/09 - 12/24 Meghana Casillas #4, 2 days supply, Prescribed by NIKKI BASS, Filled 10/10/2019 ipratropium bromide 0.02% solution completed Inhale 1 vial every six hours 10/09 - Aaliyah Arceo #62.5, 6 days supply, Prescribed by NIKKI BASS, Filled 10/10/2019 [facility] ASPIRIN EC 81 MG ORAL TABLET DELAYED RELEASE completed TAKE 1 TABLET BY MOUTH EVERY MORNING 10/09 - Woo Avitia MD #30, 30 days supply, Prescribed by NIKKI BASS, Filled 10/10/2019 albuterol sulfate 2.5 mg/3 mL (0.083 %) solution for nebulization completed Inhale 1 vial every six hours 10/09 - Aaliyah Adis #75, 6 days supply, Prescribed by NIKKI BASS, Filled 10/10/2019 ergocalciferol (vitamin D2) 1,250 mcg (50,000 unit) capsule completed 1 tablet by mouth once a week 10/12 - Aaliyah Adis #4, 28 days supply, Prescribed by ALFONSO MACIAS, Filled 10/13/2019 SOCIAL HISTORY Date Observation Value Provider social history E&M S moking History: Nickolas odonnell has never smoked. Woo Avitia MD smoking status Never smoker Woo jackson MD social history reviewed E&M revi ewed - no changes required Woo Avitia MD smoking status Never smoker Woo jackson MD social history reviewed E&M revi ewed - no changes required Woo Avitia MD social history E&M Smoking Histo ry: Nickolas odonnell has never smoked. Woo Avitia MD social history E&M S moking History: Nickolas odonnell has never smoked. Kota Ordoñez social history reviewed E&M revi ewed - no changes required Kota Ordoñez smoking status Never smoker Kota Kyabdirizak social history E&M S moking History: P blas has never smoked. Rkjerardo Kenton social history reviewed E&M revi ewed - no changes required Rigo Fung smoking status Never smoker Meghana velasco social history E&M S moking History: P blas has never smoked. Shravan Mahmood MD social history reviewed E&M revi ewed - no changes required Shravan Mahmood MD smoking status Never smoker Stephanie Mayda andrade social history E&M S moking History: P blas has never smoked. Woo Avitia MD social history reviewed E&M revi ewed - no changes required Woo Avitia MD smoking status Never smoker Meghana Champagne krista social history reviewed E&M revi ewed - no changes required Jeremías Faye social history E&M Smoking Histo ry: P blas has never smoked. Jeremías Faye smoking status Never smoker Toño Kirk number of grandchildren Woo Avitia MD smoking status Never smoker Toño Kirk FAMILY HISTORY Family Member Condition Mother Family History of Hy pertension: Mother Family History of Di abetes: Father Family History of Hy pertension: Maternal Grandfather Family History of H ypertension: Maternal Grandfather Family History of D iabetes: Maternal Grandfather Family History of C VA or Stroke: Mother Family History of Hy pertension: Mother Family History of CV A or Stroke: INSURANCE PROVIDERS Payer name Policy type / Coverage type [facility] FAMILY [employer] Medicaid 3 [id number] ADVANCE DIRECTIVES Name Date LIVING WILL ON FILE TREATMENT PLAN Date Name Performer [id number],S, N o recurrence. He continues on Magnesium and uses oxygen. Woo Avitia MD [id number],S, C ontinues on Lipitor. We aim for an LDL <70. Woo Avitia MD [id number],S, D enies of any chest pain. If there is recurrence of chest pain, will need a cardiac cath. Woo Avitia MD [id number],S, C ontinues on O2. Followed by pulmonary. Continues on bronchodilators. Woo Avitia MD [id number],S, M inimal palpitation burden. He continues on Dofetiliide and Diltiazem. On Xarelto for alf OAC. Woo Avitia MD [id number],S, C ontinues on Lasix 40mg daily. Woo Avitia MD [id number],S, T he patient is using CPAP on a regular basis. The patient has been benefiting from therapy and should continue use. He is planning to ask his respiratory therapist about the Inspire device for sleep apnea. Woo Avitia MD [id number],S, W eight loss advised. Woo Avitia MD [id number],S, C ompensated. Continues on Lasix 40mg daily. Woo Avitia MD [id number],S, R easonably well controlled. Advised reduced sodium intake and routine monitoring of the blood pressure. We aim for blood pressure less than 130/80. Continues on his current regimen. Woo Avitia MD [id number],S, T he patient is using CPAP on a regular basis. The patient has been benefiting from therapy and should continue use. Woo Avitia MD [id number],S, L E swelling with pigementation changes. Uses ammonium lactate ointment. Woo Avitia MD [id number],S, C ontinues on Lipitor. We aim for an LDL <70. Woo Avitia MD [id number],S, N o recurrence. He continues on Magnesium and uses oxygen. Woo Avitia MD [id number],S, C ontinues on O2. Followed by pulmonary. Continues on bronchodilators. Woo Avitia MD [id number],S, M inimal palpitation burden. He continues on Dofetiliide and Diltiazem. On Xarelto for alf OAC. In SR today. Woo Avitia MD [id number],S, S table on continuous O2. Currently on 5L at home. He was advised to increase to 6L as needed for activity. Woo Avitia MD [id number],S, O ff Metformin. Reduced intake of carbohydrates and sugars advised. Woo Avitia MD [id number],S, C ontinues on Lipitor. We aim for an LDL <70. Woo Avitia MD [id number],S, T he patient is using CPAP on a regular basis. The patient has been benefiting from therapy and should continue use. Woo Avitia MD [id number],S, W eight loss advised. He has lost 52 lbs in the last year or so. Woo Avitia MD [id number],S, A dvised reduced sodium intake and routine monitoring of the blood pressure. We aim for blood pressure less than 130/80. Continues on his current regimen. Woo Avitia MD [id number],S, C ompensated. Continues on Lasix 40mg daily. Woo Avitia MD [id number],S, C ontinues on O2. Followed by pulmonary. Continues on bronchodilators. Woo Avitia MD [id number],S, N o recurrence. He continues on Magnesium and uses oxygen. Woo Avitia MD [id number],S, L ast week he had an episode of palpitations with associated lighrheadedness while cleaning out and organizing his garage. It resolved after 10 minutes and he hasn't had a recurrence since. He states that he checked his rhythm on his phone and he was not in afib at that time. I recommended he increase his oxygen whenever he plans to do more activity. Otherwise he has minimal palpitation burden.. He continues on Dofetiliide and Diltiazem. On Xarelto for alf OAC. Woo Avitia MD [id number],C,W eight loss advised. He has lost 31 lbs by implementing dietary changes. Woo Avitia MD [id number],C,T he patient is using CPAP on a regular basis. The patient has been benefiting from therapy and should continue use. Woo Avitia MD [id number],C,O n Metformin. Reduced intake of carbohydrates and sugars advised. Woo Avitia MD [id number],C,A dvised reduced sodium intake and routine monitoring of the blood pressure. We aim for blood pressure less than 130/80. Continues on his current regimen. Woo Avitia MD [id number],C,C ontinues on O2. Followed by pulmonary. Continues on bronchodilators. Recently started on Bevespi. Woo Avitia MD [id number],C,D enies of any chest pain. If there is recurrence of chest pain, will need a cardiac cath. Woo Avitia MD [id number],C,N o recurrence. He continues on Magnesium and uses oxygen. Woo Avitia MD [id number],C,R eports 6-7 very short episodes of palpitations in the past 4 months. He continues on Dofetiliide and Diltiazem. On Xarelto for piggyback clerk OAC. Woo Avitia MD Telehealth, 6 month fu: N o recurrence. He continues on Magnesium and uses oxygen. Woo Avitia MD Telehealth, 6 month fu: C ontinues on Lipitor. We aim for an LDL <70. Woo Avitia MD Telehealth, 6 month fu: D enies of any chest pain. If there is recurrence of chest pain, will need a cardiac cath. Woo Avitia MD Telehealth, 6 month fu: C ontinues on O2. Followed by pulmonary. Continues on bronchodilators. Woo Avitia MD Telehealth, 6 month fu: M inimal palpitation burden. He continues on Dofetiliide and Diltiazem. On Xarelto for piggyback clerk OAC. Woo Avitia MD Telehealth, 6 month fu: C ontinues on Lasix 40mg daily. Woo Avitia MD Telehealth, 6 month fu: T he patient is using CPAP on a regular basis. The patient has been benefiting from therapy and should continue use. He is planning to ask his respiratory therapist about the Inspire device for sleep apnea. Woo Avitia MD Cardiology: W eight loss advised. Woo Avitia MD Cardiology: C ompensated. Continues on Lasix 40mg daily. Woo Avitia MD Cardiology: R easonably well controlled. Advised reduced sodium intake and routine monitoring of the blood pressure. We aim for blood pressure less than 130/80. Continues on his current regimen. Woo Avitia MD Cardiology: T he patient is using CPAP on a regular basis. The patient has been benefiting from therapy and should continue use. Woo Avitia MD Cardiology: L E swelling with pigementation changes. Uses ammonium lactate ointment. Woo Avitia MD Cardiology: C ontinues on Lipitor. We aim for an LDL <70. Woo Avitia MD Cardiology: N o recurrence. He continues on Magnesium and uses oxygen. Woo Avitia MD Cardiology: C ontinues on O2. Followed by pulmonary. Continues on bronchodilators. Woo Avitia MD Cardiology: M inimal palpitation burden. He continues on Dofetiliide and Diltiazem. On Xarelto for piggyback clerk OAC. In SR today. Woo Avitia MD Cardiology: S table on continuous O2. Currently on 5L at home. He was advised to increase to 6L as needed for activity. Woo Avitia MD Cardiology: O ff Metformin. Reduced intake of carbohydrates and sugars advised. Woo Avitia MD Telehealth, 6 month fu: Zhanna oneilinolga on Lipitor. We aim for an LDL <70. Woo Avitia MD Telehealth, 6 month fu: T he patient is using CPAP on a regular basis. The patient has been benefiting from therapy and should continue use. Woo Avitia MD Telehealth, 6 month fu: W eight loss advised. He has lost 52 lbs in the last year or so. Woo Avitia MD Telehealth, 6 month fu: A dvised reduced sodium intake and routine monitoring of the blood pressure. We aim for blood pressure less than 130/80. Continues on his current regimen. Woo Avitia MD Telehealth, 6 month fu: Zhanna ompensated. Continues on Lasix 40mg daily. Woo Avitia MD Telehealth, 6 month fu: Zhanna pandey on O2. Followed by pulmonary. Continues on bronchodilators. Woo Avitia MD Telehealth, 6 month fu: N o recurrence. He continues on Magnesium and uses oxygen. Woo Avitia MD Telehealth, 6 month fu: L ast week he had an episode of palpitations with associated lighrheadedness while cleaning out and organizing his garage. It resolved after 10 minutes and he hasn't had a recurrence since. He states that he checked his rhythm on his phone and he was not in afib at that time. I recommended he increase his oxygen whenever he plans to do more activity. Otherwise he has minimal palpitation burden.. He continues on Dofetiliide and Diltiazem. On Xarelto for alf OAC. Woo Avitia MD Telehealth:Weight lo ss advised. He has lost 31 lbs by implementing dietary changes. Woo Avitia MD Telehealth:The patie nt is using CPAP on a regular basis. The patient has been benefiting from therapy and should continue use. Woo Avitia MD Telehealth:On Metfor min. Reduced intake of carbohydrates and sugars advised. Woo Avitia MD Telehealth:Advised r educed sodium intake and routine monitoring of the blood pressure. We aim for blood pressure less than 130/80. Continues on his current regimen. Woo Avitia MD Telehealth:Continues on O2. Followed by pulmonary. Continues on bronchodilators. Recently started on Bevespi. Woo Avitia MD Telehealth:Denies of any chest pain. If there is recurrence of chest pain, will need a cardiac cath. Woo Avitia MD Telehealth:No recurr ence. He continues on Magnesium and uses oxygen. Woo Avitia MD Telehealth:Reports 6 -7 very short episodes of palpitations in the past 4 months. He continues on Dofetiliide and Diltiazem. On Xarelto for piggyback clerk OAC. Woo Avitia MD Telehealth:Weight loss advised Heike Ordoñez Telehealth:Oxygen recently added to CPAP. Compliant. Kota Ordoñez Telehealth:On Metfor min. Reduced intake of carbohydrates and sugars advised. Kota Ordoñez Telehealth:Advised r educed sodium intake and routine monitoring of the blood pressure. We aim for blood pressure less than 130/80. Continues on his current regimen. Kota Ordoñez Telehealth:Continues on O2. Followed by pulmonary. Continues on bronchodilators. Kota Ordoñez Telehealth:Denies of any chest pain. If there is recurrence of chest pain, will need a cardiac cath. Kota Blankenshipabdirizak Telehealth:No recurr ence. He continues on Magnesium and uses oxygen. Kota Telehealth:No recurr ence s/p DEVON/CV per patient. He continues on Dofetiliide and Diltiazem. On Xarelto for piggyback clerk OAC. Kota abdirizak TeleHealth:On Metformin. Danny Avitia MD TeleHealth:The patie nt is using CPAP on a regular basis. The patient has been benefiting from therapy and should continue use. Woo Avitia MD TeleHealth:Weight lo ss advised. Starting the process of evaluation for bariatric surgery. Woo Avitia MD TeleHealth:Compensat ed. Continues on Lasix 40mg daily. Woo Avitia MD TeleHealth:No recurr ence s/p DEVON/CV. He continues on his current regimen including Cardizem CD 240mg daily. On Xarelto for alf OAC. Woo Avitia MD TeleHealth:Recently started on 4L O2 by pulmonary. Continues on bronchodilators. Woo Avitia MD TeleHealth:Improved on continuous O2. Currently on 4L at home. I advised him that he may benefit from increasing the O2 to 5L with activity. Woo Avitia MD Telehealth:No recurr ence s/p DEVON/CV. He continues on his current regimen. On Xarelto for alf OAC. [facility] Telehealth:Remains s hort of breath. Follows pulmonary and planned for further testing to determine need for oxygen. Kota abdirizak Telehealth:Advised r educed sodium intake and routine monitoring of the blood pressure. We aim for blood pressure less than 130/80. Continues on his current regimen. Kota abdirizak Telehealth:Symptomat ic with pain that limits his effort tolerance. Further management as per yourself. Kota Ordoñez Telehealth:Continues on Lipitor. We aim for an LDL <70. [place] Telehealth:If there is recurrence of VT, would repeat stress test. Denies of any chest pain. Kota Telehealth:SOB stable. Denies of any weight gain. [facility] Telehealth:No recurr ence. He continues on Magnesium and uses CPAP during the day. Has been evaluated by pulmonary and planned for 6 minute walk to determine need for oxygen. [facility] Cardiology Follow up :The patient is using CPAP on a regular basis. The patient has been benefiting from therapy and should continue use. [facility] Cardiology Follow up :Weight los s advised [facility] Cardiology Follow up :Clinically compensated. [facility] Cardiology Follow up :If there is recurrence of VT, would repeat stress test. [facility] Cardiology Follow up :Continues on Lipitor. We aim for an LDL <70. Recent A1c 85. [facility] Cardiology Follow up :Blood pressure elevated. Advised reduced sodium intake and routine monitoring of the blood pressure. We aim for blood pressure less than 130/80. He continues on Lisinopril, Cardizem, and Lasix. [facility] Cardiology Follow up :s/p DEVON/CV remains in sinus rhythm. Continues on Digoxin and Cardizem. On Xarelto for alf OAC. [facility] Cardiology Follow up :One 4 second episode of VT on tele which terminated with no treatement. WIll continue to monitor with telesentry. Continue Magnesium supplement. Advised to wear the CPAP during the day while he is watching TV to prevent oxygen desaturation when he falls asleep. If there is recurrence, he would benefit from treatment with medication. Kota Ordoñez :34 Shravan Mahmood MD :797 Shravan Mahmood MD :neg b12 and rpr Shravan Gunter :5.8 Shravan Mahmood MD Electrophysiology Follow up ionc omplete Ganga Zavala MD Electrophysiology Fo llow up ioncomplete :would avoid flecainide. 1 . Abnormal myocardial perfission imaging demonstrating a small size, mild severity apical p erfusion defect during stress imaging which is consistent with a zoversible ischemia. 2 . In addition, there is evidence of fixed moderate size, mild severity inferior perfission defect s uggestive of disphragmatic attenuation artifact. 3 . Left ventriculogram demonstrated normal ejection fraction at 74% with no wall motion a boormalities. 4 . The left ventricle is moderately dilated with end-dinitalic volume at 166 mL. 5 . The TID score is normal at 0.88. Ganga Zavala MD Electrophysiology Fo llow up ioncomplete :PFTs today His updated medication list for this problem includes: Lasix 40 Mg Oral Tablet (Furosemide) ..... One tab by mouth daily Cardizem Cd 240 Mg Oral Capsule Extended Release 24 Hour (Diltiazem hcl coated beads) ..... 1 capsule daily Lisinopril 40 Mg Oral Tablet (Lisinopril) ..... Take 1 tablet by mouth every day Digoxin 125 Mcg Oral Tablet (Digoxin) ..... One tab. daily Troponin I: <0.012 (11/04/2019) Hgb: 11.2 (11/04/2019) HCT: 36.6 (11/04/2019) RBC: 4.07 (11/04/2019) WBC: 7.4 (11/04/2019) B UN: 14 (11/04/2019) Creat: 0.58 (11/04/2019) Na+: 134 (11/04/2019) K+: 3.6 (11/04/2019) Cl: 98 (11/04/2019) SGOT (AST): 22 (11/04/2019) SGPT (ALT): 18 (11/04/2019) TSH: 2.660 (11/03/2019) Ganga Zavala MD Electrophysiology Fo llow up ioncomplete :Recommend synchronized cardioversion, Dr. Avitia to do. Does not need W ould recommend tikosyn loading. Discussed the indications, alternatives and risk of complications from the procedure with the patient who expressed understanding. S hould not take flecainide due to recent abnormal stress test . His updated medication list for this problem includes: Digoxin 125 Mcg Oral Tablet (Digoxin) ..... One tab. daily Multaq 400 Mg Oral Tablet (Dronedarone hcl) ..... One tab with morning meal. one tab with evening meal. Orders: E KG (CPT-37835) C ardioversion - [facility] (CPT-25125) Ganga Zavala MD Cardiology Shravan Mahmood MD Cardiology Shravan Mahmood MD Cardiology Shravan Mahmood MD Cardiology Shravan Mahmood MD Cardiology Shravan Mahmood MD Cardiology:neg hep apnel Shravan Mahmood MD Cardiology:had cardioverson but back in afib Shravan Mahmood MD Cardiology:too large to cath Vadim Mahmood MD Cardiology Follow up :Weight los s advised [facility]ota abdirizak Cardiology Follow up :Compliance stressed. [facility]ota abdirizak Cardiology Follow up :Advised to follow up with pulmonary. [facility] abdirizak Cardiology Follow up :Small, mild, apical wall defect consistent with ischemia seen on recent stress test. His shortness of breath is likely multifactoral. If his symptoms persist or he has chest pain, he would benefit from cardiac cath. Advised to discontinue Aspirin as he is on anticoagulation with Xarelto. [facility] Follow up :Blood pressure control is satisfactory. Kota abdirizak Cardiology Follow up :Shortness of breath on minimal exertion likely multifactoral related to lung disease, afib with RVR, obesity, and deconditioning. He appears euvolemic. Continues on Lasix. Kota abdirizak Cardiology Follow up :In afib with RVR. Will increase Diltiazem to 240mg daily. Will resume Digoxin 125mcg daily. He continues on anticoagulation with Xarelto. r ate vs rhythm control with DEVON/CV was discussed with the patient. Will try rate control and he will consider possible repeat cardioversion if his symptoms do not improve and he does not revert back to sinus rhythm. He is short of breath on minimal exertion and unable to work at this point. Kota Ordoñez Telehealth:Reduced i ntake of carbohydrates and sugars advised. Kota [facility] Telehealth:Awaiting new CPAP. Hemanth michelle [facility] Telehealth:Weight loss advised Heike back [facility] Telehealth:Continues on Lisinopril 40mg daily. Advised reduced sodium intake and routine monitoring of the blood pressure. We aim for blood pressure less than 130/80. [facility] Telehealth:Denies of any shortness of breath. He continues on Lasix. [facility] Telehealth:Denies of any palpitations. Advised to continue on anticoagulation with Xarelto. Will have the office try to assist with cost. [facility] Telehealth:Small, mi ld, apical wall defect consistent with ischemia seen on recent stress test. He is asymptomatic at this time therefore will hold off on further investigations. The patient is agreeable to continue with medical management. [facility] Cardiology:Had recen t split night study. Will f/u with Dr. Avitia. [facility] Cardiology:BP today: 140/86 P rior BP: 177/104 (10/15/2019) His updated medication list for this problem includes: Lasix 40 Mg Oral Tablet (Furosemide) ..... One tab by mouth daily Lisinopril 40 Mg Oral Tablet (Lisinopril) ..... Take 1 tablet by mouth every day [facility] Cardiology:Per recor ds from [facility], pt had elevated HgA1c of 6.1% recently. Will check HgA1c again. [facility] Cardiology:He has le g swelling and skin discoloration consistent with venous insufficiency. Will schedule venous duplex w/reflux. CEAP C4a. CEAP Clinical Classification C 0 : No visible or palpable signs of venous disease C 1 : Telangiectasies or reticular veins C 2 : Varicose veins C 3 : Edema C 4a: Pigmentation or eczema C 4b: Lipodermatosclerosis or atrophie ned C 5 : Healed venous ulcer C 6 : Active venous ulcer [facility] Cardiology:Pt had an admission in September with respiratory failure requiring intubation. Pt had an admission last week to [facility] with complaints of SOB and was found to be in AFib (new-onset). He was cardioverted successfully. We will stop Digoxin and continue Xarelto. Will obtain regadenosine myoview . His updated medication list for this problem includes: Lasix 40 Mg Oral Tablet (Furosemide) ..... One tab by mouth daily Lisinopril 40 Mg Oral Tablet (Lisinopril) ..... Take 1 tablet by mouth every day [facility] Cardiology:Pt had an admission last week to [facility] with complaints of SOB and was found to be in AFib (new-onset). He was cardioverted successfully. We will stop Digoxin and continue Xarelto. [facility] Cardiology:CPAP is b roken per patient. Will arrange titration study. Woo Avitia MD Cardiology:Continues on bronchod ilators and steroids. Woo Avitia MD Cardiology:Weight loss advised. Woo Avitia MD Cardiology:BLood pre ssure markedly elevated. will add Lasix. He continues on Lisinopril as before. Advised low salt diet. Woo Avitia MD Cardiology:Clinciall y in CHF with shortness of breath, leg swelling and weight gain. Will start Lasix 40mg daily and Klor-con 20meq daily. He will get a CMP and proBNP in 1 week. Will request hospital records. Woo Avitia MD Date Name Cardioversion - GC Renal Artery Duplex FOLATE, SERUM Microalb/Creatinine Urine, Random HEMOGLOBIN A1c RPR (MONITOR) W/REFL TITER VITAMIN B12 Vitamin D, 25-Hydrox y DIGOXIN C-REACTIVE PROTEIN PROBNP, N TERMINAL IRON AND TOTAL IRON BINDING CAPACITY FERRITIN CBC (INCLUDES DIFF/P LT) LIPID PANEL COMPREHENSIVE METABO LIC PANEL, W/EGFR Mobile Cardiac Tele TSH, free T4, total T3 DLCO - 26879 FRC - 04103 FVC - 09113 Arterial Duplex Bi-L ower EX PROBNP, N TERMINAL HEMOGLOBIN A1c Stress Regadenoson Venous Doppler Bilat eral LE - Reflux Covid Antibody IgA ( LC) Covid Antibody IgM ( LC) EKG PROBNP, N TERMINAL COMPREHENSIVE METABO LIC PANEL, W/EGFR HISTORY OF PROCEDURES Procedure Date Procedure Name Provider Procedure Notes S tatus EKG Woo Avitia MD complet ed Event Monitor Woo Avitia MD comp leted EKG Woo Avitia MD complet ed FVC / MVV with bronchodilator - 10495 Ganga Zavala MD completed BLOOD COUNT HEMOGLOBIN Ganga fuentes MD completed FRC - 80858 Ganga urrutia MD completed SpO2 w/o 6min walk/titration Ganga Zavala MD completed DLCO - 04601 Ganga urrutia MD completed EKG Ganga urrutia MD completed EKG Woo Avitia MD complet ed
--- OUTSIDE RECORDS SUMMARY | 2024-06-09 13:05 | XMS_ITS | Patient Health Summary ---
Author Organization [facility] Address [address] [place] [address] Care Team Providers Care Java Spring Developer Name Role Phone Jose Naidu MD Primary Care Prov ider Note from [facility],non-owned Affiliates and Associated Physician Practices is amultiple site organization consisting of ambulatory clinics and hospital sitesin [place] and [place]. This disclosure is being madepursuant to the Care Everywhere program and may not contain all information available regarding this patient. Last updated 18.[facility] Allergies * Penicillins Medications * Be aware that medications may not be up to date on this document. Alwaysverify current medications with the patient. * mometasone (NASONEX) 50 MCG/ACT nasal spray(Started 02/02/2011) [facility] 2 Sprays into each nostril once daily. 5 refills left * triamcinolone acetonide (KENALOG) 0.1 % cream(Started 03/03/2011) Apply to affected area 2 times daily. Use for 2 weeks max at a time. 1 refill left * multivitamin daily (THERAGRAN) tablet Take 1 Tab by mouth daily with food. * diazepam (VALIUM) 5 MG tablet(Started 06/03/2011) Take 1 Tab by mouth 3 times daily. * meclizine (ANTIVERT) 25 MG tablet(Started 06/03/2011) Take 1 Tab by mouth 3 times daily. * oxycodone-acetaminophen (PERCOCET) 5-325 MG tablet(Started 06/03/2011) Take 1-2 Tabs by mouth every 4 hours as needed. * lisinopril (PRINIVIL; ZESTRIL) 10 MG tablet(Started 10/20/2011) Take 1 Tab by mouth once daily. * chlorthalidone (HYGROTON) 25 MG tablet(Started 10/20/2011) Take 1 Tab by mouth once daily. Active Problems Problem Noted Date Diagnosed Date Chest pain 06/01/2011 HTN (hypertension) 02/08/2011 AR (allergic rhinitis) 02/08/2011 Nummular eczema 02/08/2011 Social History Tobacco Use Types Packs/Day Years Used Date Smoking Tobacco: Never Smokeless Tobacco: Never Alcohol Use Standard Drinks/Week Comments Yes 0 (1 standard drink = 0.6 oz pur e alcohol) Sex and Gender Information Value Date Recorded Sex Assigned at Not on file Gender Identity Not on file Sexual Orientation Not on file Last Filed Vital Signs Vital Sign Reading Time Taken Comments Blood Pressure 121/81 06/03/2011 7:14 AM HARBOR PILOT Pulse 55 06/03/2011 7:14 AM HARBOR PILOT Temperature 36.4 ??C (97.6 ??F) 06/03/2011 7:14 AM CS T Respiratory Rate 20 06/03/2011 7:14 AM HARBOR PILOT Oxygen Saturation 96% 06/03/2011 7:14 AM HARBOR PILOT Inhaled Oxygen Concentration - - Weight 117.9 kg (260 lb) 06/01/2011 11:54 AM HARBOR PILOT Height 185.4 cm (6' 1 ) 06/01/2011 11:54 AM HARBOR PILOT Body Mass Index 34.3 06/01/2011 11:54 AM HARBOR PILOT Procedures * CARDIAC EKG ORDER(Performed 06/04/2011) * CARDIAC RHYTHM STRIP ORDER(Performed 06/04/2011) * NM MYOCARD PERF REST STRESS(Performed 06/02/2011) Performed for Chest pain * ECHOCARDIOGRAM 2D WITH DOPPLER(Performed 06/02/2011) Performed for Chest pain * CARDIAC EKG ORDER(Performed 06/02/2011) * TROPONIN I(Performed 06/02/2011) * STRESS TEST LEXISCAN (NUCLEAR)(Performed 06/02/2011) Performed for Chest pain * TROPONIN I(Performed 06/01/2011) * CT ANGIO BRAIN AND NECK(Performed 06/01/2011) Performed for Dizziness, Headache * CT HEAD WO CONTRAST(Performed 06/01/2011) Performed for Dizziness, Headache * XR CHEST 1VW PORTABLE(Performed 06/01/2011) Performed for Chest pain * PTT(Performed 06/01/2011) * PT-INR(Performed 06/01/2011) * MAGNESIUM BLOOD(Performed 06/01/2011) * MYOGLOBIN BLOOD(Performed 06/01/2011) * TROPONIN I(Performed 06/01/2011) * COMPREHENSIVE METABOLIC PANEL(Performed 06/01/2011) * CBC W AUTO DIFFERENTIAL(Performed 06/01/2011) * OCCULT BLOOD FECES FIT IMMUNOASSAY(Performed 02/07/2011) Performed for Blood stool * PROSTATE SPECIFIC ANTIGEN SCREEN(Performed 02/02/2011) Performed for Routine general medical examination at a health care facility * TSH(Performed 02/02/2011) Performed for Routine general medical examination at a health care facility * HEMOGLOBIN A1C(Performed 02/02/2011) Performed for Routine general medical examination at a health care facility * LIPID PROFILE(Performed 02/02/2011) Performed for Routine general medical examination at a health care facility * COMPREHENSIVE METABOLIC PANEL(Performed 02/02/2011) Performed for Routine general medical examination at a health care facility Results * CARDIAC EKG ORDER (06/04/2011 12:34 PM HARBOR PILOT) Only the most recent of2 resultswithin the time period is included. Narrative Transcriptions Document, Scanned - 06/04/2011 12:34 PM CST Scanned Document CARDIAC SERVICES ORD ERABLES * CARDIAC RHYTHM STRIP ORDER (06/04/2011 12:34 PM HARBOR PILOT) Narrative Transcriptions Document, Scanned - 06/04/2011 12:34 PM CST Scanned Document CARDIAC SERVICES ORD ERABLES * NM MYOCARD PERFUSION SPECT STRESS AND REST (06/02/2011 10:38 AM HARBOR PILOT) Anatomical Region Laterality Modality Chest Nuclear Medicine 06/02/2011 11:2 3 AM HARBOR PILOT Impressions 06/02/2011 11:23 AM HARBOR PILOT 1. ??No evidence of pharmacologically induced reversible defect to suggest ischemia. 2. ??Normal left ventricle wall motion, with a composite left ventricular ejection fraction of 44 %. Narrative 06/02/2011 11:23 AM HARBOR PILOT MYOCARDIAL SPECT MULTI MYOCARDIAL PERFUSION WITH EJECTION FRACTION MYOCARDIAL PERFUSION WITH WALL MOTION INDICATION: Chest pain RADIOPHARMACEUTICAL: 11.0 mCi of ??Tc99m Tetrofosmin at rest and 40.0 mCi Tc99m Tetrofosmin at stress. 0.4 mg of Lexiscan given intravenously. TECHNIQUE: After the resting SPECT images were made, the patient was given the Lexiscan dose and the stress dose of tracer was given, and the patient was reimaged, using SPECT technique. FINDINGS: Stress and rest images show homogeneous uptake of radiotracer throughout the left ventricle. No fixed or reversible perfusion defects are seen. WALL MOTION ANALYSIS: 3-D reconstruction of the gated data shows the left ventricular ejection fraction to measure 44 %. ??No wall motion abnormality is present. Procedure Note Madi Goodman MD - 06/02/2011 MYOCARDIAL SPECT MULTI MYOCARDIAL PERFUSION WITH EJECTION FRACTION MYOCARDIAL PERFUSION WITH WALL MOTION INDICATION: Chest pain RADIOPHARMACEUTICAL: 11.0 mCi of Tc99m Tetrofosmin at rest and 40.0 mCi Tc99m Tetrofosmin at stress. 0.4 mg of Lexiscan given intravenously. TECHNIQUE: After the resting SPECT images were made, the patient was given the Lexiscan dose and the stress dose of tracer was given, and the patient was reimaged, using SPECT technique. FINDINGS: Stress and rest images show homogeneous uptake of radiotracer throughout the left ventricle. No fixed or reversible perfusion defects are seen. WALL MOTION ANALYSIS: 3-D reconstruction of the gated data shows the left ventricular ejection fraction to measure 44 %. No wall motion abnormality is present. IMPRESSION 1. No evidence of pharmacologically induced reversible defect to suggest ischemia. 2. Normal left ventricle wall motion, with a composite left ventricular ejection fraction of 44 %. Alvaro Mendosa MD NM ORDERABLES * ECHOCARDIOGRAM 2D WITH DOPPLER (06/02/2011 10:37 AM HARBOR PILOT) 06/02/2011 10:3 7 AM HARBOR PILOT Narrative [facility] - 06/02/2011 11:54 AM HARBOR PILOT ECHOCARDIOGRAPHY REPORT [address] [address] Transthoracic Echocardiogram 2D, M-mode, Doppler, and Color Doppler Date of Service: ??06/02/2011 Patient: MELI GUZMAN : 1965 Age: 45 years Gender: Male Race: Height: 73 in Weight: 260 lb BSA: 2.41 m?? Reading Physician: ??Nicholas Blanca MD Referring Physician: ??Deondre John MD PARK AIDE: ??NOEL MATHIS [facility] Cardiology Group: ??[place] [facility] Summary: - ??Procedure information: - ??This was a technically difficult study. - ??Left ventricle: - ??Systolic function was normal. Ejection fraction was estimated in the range of 55 % to 65 %. - ??There were no regional wall motion abnormalities. Indications: Evaluate chest pain. History: Symptoms: chest pain. Prior history: Risk factors: hypertension. Procedure: The study was performed in the [facility] room 416 @ 10:37AM. This was a routine study. The transthoracic approach was used. The study included complete 2D imaging, M-mode, complete spectral Doppler, and color Doppler. This was a technically difficult study. Left ventricle: Size was normal. Systolic function was normal. Ejection fraction was estimated in the range of 55 % to 65 %. There were no regional wall motion abnormalities. Wall thickness was normal. Aortic valve: The valve was trileaflet. Leaflets exhibited normal thickness and normal cuspal separation. Doppler: Transaortic velocity was within the normal range. There was no stenosis. There was no regurgitation. Aorta: The root exhibited normal size. Mitral valve: Valve structure was normal. There was normal leaflet separation. Doppler: The transmitral velocity was within the normal range. There was no evidence for stenosis. There was no regurgitation. Left atrium: Size was normal. Right atrium: Size was normal. Right ventricle: The size was normal. Systolic function was normal. Wall thickness was normal. Tricuspid valve: The valve structure was normal. There was normal leaflet separation. Doppler: The transtricuspid velocity was within the normal range. There was no evidence for tricuspid stenosis. There was no regurgitation. Pulmonic valve: Leaflets exhibited normal thickness, no calcification, and normal cuspal separation. Doppler: The transpulmonic velocity was within the normal range. There was no regurgitation. Pulmonary artery: The size was normal. Doppler: Systolic pressure was within the normal range. Systemic veins: IVC: Not reported. SVC: Not reported. Innominate vein: Not reported. Hepatic veins: Not reported. Pericardium: There was no pericardial effusion. System measurement tables 2D mode LVOT Area (2D): 346 mm2 M mode AoR Diam (MM): 30 mm LA Dimension (MM): 38 mm LA Dimension; Mean (MM): 38 mm IVSd (MM): 9.6 mm IVSs (MM): 15.2 mm LVIDd (MM): 73.8 mm LVIDs (MM): 52.5 mm LVPWd (MM): 12.6 mm Unspecified Scan Mode CV Orifice Area; Cont Eq by VTI: 286 mm2 Mean Gradient; User chosen value; Antegrade Flow;: 12 mm[Hg] Mean Velocity; User chosen value; Antegrade Flow;: 1620 mm/s Peak Gradient; User chosen value; Antegrade Flow;: 21 mm[Hg] VTI; Antegrade Flow: 476 mm Vmax; Antegrade Flow: 2290 mm/s LVOT Diam: 21 mm LVOT Mean Grad: 9 mm[Hg] LVOT VTI: 441 mm LVOT Vmax: 1990 mm/s LVOT Vmax; Mean: 1990 mm/s MV Peak A Mata: 805 mm/s MV Peak E Mata; Mean; Antegrade Flow: 933 mm/s Peak Grad; Mean; Antegrade Flow: 9 mm[Hg] Vmax; Antegrade Flow: 1520 mm/s Peak Gradient; User chosen value; Regurgitant Flow;: 25 mm[Hg] Peak Velocity; User chosen value; Regurgitant Flow;: 2520 mm/s Prepared and signed by Nicholas Blanca MD Signed 06/02/2011 11:56:28 Procedure Note Nicholas Blanca MD - 06/02/2011 ECHOCARDIOGRAPHY REPORT [address] [address] Transthoracic Echocardiogram 2D, M-mode, Doppler, and Color Doppler Date of Service: 06/02/2011 Patient: MELI GUZMAN : 1965 Age: 45 years Gender: Male Race: Height: 73 in Weight: 260 lb BSA: 2.41 m?? Reading Physician: Nicholas Blanca MD Referring Physician: Deondre John MD PARK AIDE: NOEL MATHIS [facility] Cardiology Group: [place] [facility] Summary: - Procedure information: - This was a technically difficult study. - Left ventricle: - Systolic function was normal. Ejection fraction was estimated in the range of 55 % to 65 %. - There were no regional wall motion abnormalities. Indications: Evaluate chest pain. History: Symptoms: chest pain. Prior history: Risk factors: hypertension. Procedure: The study was performed in the [facility] room 416 @ 10:37AM. This was a routine study. The transthoracic approach was used. The study included complete 2D imaging, M-mode, complete spectral Doppler, and color Doppler. This was a technically difficult study. Left ventricle: Size was normal. Systolic function was normal. Ejection fraction was estimated in the range of 55 % to 65 %. There were no regional wall motion abnormalities. Wall thickness was normal. Aortic valve: The valve was trileaflet. Leaflets exhibited normal thickness and normal cuspal separation. Doppler: Transaortic velocity was within the normal range. There was no stenosis. There was no regurgitation. Aorta: The root exhibited normal size. Mitral valve: Valve structure was normal. There was normal leaflet separation. Doppler: The transmitral velocity was within the normal range. There was no evidence for stenosis. There was no regurgitation. Left atrium: Size was normal. Right atrium: Size was normal. Right ventricle: The size was normal. Systolic function was normal. Wall thickness was normal. Tricuspid valve: The valve structure was normal. There was normal leaflet separation. Doppler: The transtricuspid velocity was within the normal range. There was no evidence for tricuspid stenosis. There was no regurgitation. Pulmonic valve: Leaflets exhibited normal thickness, no calcification, and normal cuspal separation. Doppler: The transpulmonic velocity was within the normal range. There was no regurgitation. Pulmonary artery: The size was normal. Doppler: Systolic pressure was within the normal range. Systemic veins: IVC: Not reported. SVC: Not reported. Innominate vein: Not reported. Hepatic veins: Not reported. Pericardium: There was no pericardial effusion. System measurement tables 2D mode LVOT Area (2D): 346 mm2 M mode AoR Diam (MM): 30 mm LA Dimension (MM): 38 mm LA Dimension; Mean (MM): 38 mm IVSd (MM): 9.6 mm IVSs (MM): 15.2 mm LVIDd (MM): 73.8 mm LVIDs (MM): 52.5 mm LVPWd (MM): 12.6 mm Unspecified Scan Mode CV Orifice Area; Cont Eq by VTI: 286 mm2 Mean Gradient; User chosen value; Antegrade Flow;: 12 mm[Hg] Mean Velocity; User chosen value; Antegrade Flow;: 1620 mm/s Peak Gradient; User chosen value; Antegrade Flow;: 21 mm[Hg] VTI; Antegrade Flow: 476 mm Vmax; Antegrade Flow: 2290 mm/s LVOT Diam: 21 mm LVOT Mean Grad: 9 mm[Hg] LVOT VTI: 441 mm LVOT Vmax: 1990 mm/s LVOT Vmax; Mean: 1990 mm/s MV Peak A Mata: 805 mm/s MV Peak E Mata; Mean; Antegrade Flow: 933 mm/s Peak Grad; Mean; Antegrade Flow: 9 mm[Hg] Vmax; Antegrade Flow: 1520 mm/s Peak Gradient; User chosen value; Regurgitant Flow;: 25 mm[Hg] Peak Velocity; User chosen value; Regurgitant Flow;: 2520 mm/s Prepared and signed by Nicholas Blanca MD Signed 06/02/2011 11:56:28 Alvaro Mendosa MD ECHO ORDERABLES Performing Organization Address City/[facility] Co de Phone Number [facility] * TROPONIN I (06/02/2011 5:00 AM HARBOR PILOT) Only the most recent of3 resultswithin the time period is included. Troponin I < 0.015 SEE BELOW ng/mL [facility] Comment: Normal ? <0.10 [place] ??0.10-0.99 Positive ?? >=1.00 Blood specimen (specimen) BLOOD SPECIMEN / Unknown 06/02/2011 5:00 AM HARBOR PILOT 06/02/2011 5:11 AM HARBOR PILOT Bradford Iniguez MD LAB - CHEMISTRY GERALDO CHIN [facility] [address] [place] [address] * STRESS TEST LEXISCAN (NUCLEAR) (06/02/2011) 06/02/2011 Narrative Transcriptions Zbigniew Herman MD - 06/02/2011 1:29 PM CST [facility] Chemical Stress Test [facility] CHEMICAL STRESS TEST PATIENT: MELI GUZMAN EMR#: [id number] DATE OF SERVICE: 06/02/2011CCT#: [id number] : 1965ROOM: [id number] REFERRING PHYSICIAN: JAVIER WHITEADMIT DATE: 06/01/2011 INDICATION: This is a 45-year-old gentleman referred for LexiscanCardiolite study for evaluation of chest discomfort, hypertension,obesity, and to screen him for obstructive coronary artery disease. INTERPRETATION: The patient received 0.4 mg of Lexiscan injection as anintravenous bolus, followed by radiotracer injection. The patienttolerated the injection well other than having some nausea and dry heaves.He had no arrhythmias. His blood pressure response was appropriate.Resting electrocardiogram revealed sinus rhythm at 61 beats per minutewith early repolarization changes. With Lexiscan, no electrocardiographicchanges were noted that were diagnostic. IMPRESSION: 1.No electrocardiographic changes with Lexiscan injection. 2.SPECT to follow and should be correlated with this study. ZBIGNIEW HERMAN MD RKG/JT #: [id number] CC:ASHISH VALADEZ MD CHEMICAL STRESS TEST - DP Alvaro Mendosa MD CARDIAC SERVICES ORD ERABLES [facility] MED[facility]IST * CT ANGIO NECK HEAD W WO CONTRAST (06/01/2011 2:59 PM HARBOR PILOT) Anatomical Region Laterality Modality Head Computed Tomogra phy 06/01/2011 3:07 PM HARBOR PILOT Narrative 06/01/2011 3:07 PM HARBOR PILOT Examination: CT angiography, cervical and intracranial. Indication for examination: Cerebral infarction, TIA. Dizziness. CT angiography of the cervical and cranial arterial circulation is performed with thin section helical technique with additional multiplanar and three-dimensional reconstructions performed at a work station. Examination was performed with 80 cc Omnipaque 350 contrast. Examination of the cervical arterial circulation reveals that the right and left common, internal and external carotid artery are patent. No carotid stenosis or focal deep ulcer is identified. Right and left vertebral artery appear patent and symmetric. Examination of the intracranial arterial circulation reveals that the distal right and left internal carotid artery are patent as are the right and left middle and anterior cerebral. The basilar is patent as are its branches. No central intracranial arterial occlusion or embolic filling defect is observed. CONCLUSION: Unremarkable examination as described in detail above. Procedure Note Bradford Lentz MD - 06/01/2011 Examination: CT angiography, cervical and intracranial. Indication for examination: Cerebral infarction, TIA. Dizziness. CT angiography of the cervical and cranial arterial circulation is performed with thin section helical technique with additional multiplanar and three-dimensional reconstructions performed at a work station. Examination was performed with 80 cc Omnipaque 350 contrast. Examination of the cervical arterial circulation reveals that the right and left common, internal and external carotid artery are patent. No carotid stenosis or focal deep ulcer is identified. Right and left vertebral artery appear patent and symmetric. Examination of the intracranial arterial circulation reveals that the distal right and left internal carotid artery are patent as are the right and left middle and anterior cerebral. The basilar is patent as are its branches. No central intracranial arterial occlusion or embolic filling defect is observed. CONCLUSION: Unremarkable examination as described in detail above. Javier White DO CT ORDERABLES * CT HEAD NON CONTRAST (06/01/2011 2:43 PM HARBOR PILOT) Anatomical Region Laterality Modality Head Computed Tomogra phy 06/01/2011 3:04 PM HARBOR PILOT Narrative 06/01/2011 3:04 PM HARBOR PILOT Examination: Noncontrast CT brain. Indication for examination: Dizziness and giddiness. TIA. Cerebral infarction. An emergency noncontrast CT examination of the brain is performed with 5 mm helical technique. No acute intracranial hemorrhage is identified. There is no mass lesion or fluid collection. No discrete acute infarct is observed. There is mild generalized atrophy. Visualized paranasal sinuses are well aerated. CONCLUSION: Mild generalized atrophy. No acute intracranial abnormality identified. Procedure Note Bradford Lentz MD - 06/01/2011 Examination: Noncontrast CT brain. Indication for examination: Dizziness and giddiness. TIA. Cerebral infarction. An emergency noncontrast CT examination of the brain is performed with 5 mm helical technique. No acute intracranial hemorrhage is identified. There is no mass lesion or fluid collection. No discrete acute infarct is observed. There is mild generalized atrophy. Visualized paranasal sinuses are well aerated. CONCLUSION: Mild generalized atrophy. No acute intracranial abnormality identified. Javier White DO CT ORDERABLES * XR CHEST 1VW PORTABLE (06/01/2011 12:39 PM HARBOR PILOT) Anatomical Region Laterality Modality Chest Radiographic Eloise ging 06/01/2011 1:04 PM HARBOR PILOT Impressions 06/01/2011 2:29 PM HARBOR PILOT No acute pulmonary disease. Narrative 06/01/2011 2:29 PM HARBOR PILOT Chest AP portable INDICATION: Chest pain FINDINGS: Frontal view of the chest without prior show low lung values bilaterally with hypoventilatory changes. The heart size is stable. Procedure Note Madi Goodman MD - 06/01/2011 Chest AP portable INDICATION: Chest pain FINDINGS: Frontal view of the chest without prior show low lung values bilaterally with hypoventilatory changes. The heart size is stable. IMPRESSION No acute pulmonary disease. Bradford Iniguez MD DIAGNOSTIC IMAGING O RDERABLES * MYOGLOBIN BLOOD (06/01/2011 12:13 PM HARBOR PILOT) Myoglobin 32 <50.0 ng/mL [facility] Blood specimen (specimen) BLOOD SPECIMEN / Unknown 06/01/2011 12:13 PM HARBOR PILOT 06/01/2011 12:18 PM HARBOR PILOT Bradford Iniguez MD LAB - CHEMISTRY GERALDO CHIN [facility] Organization Address City/State/ZIP Co de Phone Number [facility] [address] [place] [address] * PTT (06/01/2011 12:13 PM HARBOR PILOT) Pathologist [facility] PTT 26.6 24.0 - 32.0 seconds [facility] Blood specimen (specimen) BLOOD SPECIMEN / Unknown 06/01/2011 12:13 PM HARBOR PILOT 06/01/2011 12:18 PM HARBOR PILOT Bradford Iniguez MD LAB - COAGULATION OR DERABLES Performing Organization Address City/[facility] Co de Phone Number [facility] [address] [place] [address] * (ABNORMAL) PT-INR (06/01/2011 12:13 PM HARBOR PILOT) Pathologist [facility] PT 11.3(H) 9.4 - 11.2 seconds [facility] INR 1.1 SEE BELOW [facility] Comment: 0.9-1.1 Normal 2.0-3.0 Conventional 2.5-3.5 Intensive Blood specimen (specimen) BLOOD SPECIMEN / Unknown 06/01/2011 12:13 PM HARBOR PILOT 06/01/2011 12:18 PM HARBOR PILOT Bradford Iniguez MD LAB - COAGULATION OR DERABLES Performing Organization Address [facility] de Phone Number [facility] [address] [place] [address] * (ABNORMAL) CBC W AUTO DIFFERENTIAL (06/01/2011 12:13 PM HARBOR PILOT) Pathologist [facility] WBC 5.4 4.5 - 11.0 1000/mm3 [facility] RBC 4.98 4.7 - 6.1 10X6 [facility] Hemoglobin 15.0 13.0 - 18.0 gm/dl [facility] Hematocrit 44.7 39.0 - 54.0 % [facility] MCV 89.8 80.0 - 99.0 fl [facility] MCH 30.1 25.0 - 31.0 pg [facility] MCHC 33.6 32.0 - 36.0 gm/dl [facility] RDW 13.1 11.5 - 14.5 % [facility] Platelet Count 226 130.0 - 400.0 1000/mm3 [facility] Granulocytes % 71.4(H) 40.0 - 70.0 % [facility] Lymphocytes % 15.6(L) 22.0 - 40.0 % [facility] Monocytes % 8.0 2.0 - 10.0 % [facility] Eosinophils % 4.6 0.0 - 6.0 % [facility] Basophils % 0.4 0.0 - 3.0 % [facility] Granulocytes Absolute 3.84 1.8 - 7.7 [facility] Lymphocytes Absolute 0.84(L) 1.0 - 5.4 [facility] Monocytes Absolute 0.43 0.1 - 1.1 [facility] Eosinophils Absolute 0.25 0.0 - 0.7 [facility] Basophils Absolute 0.02 0.0 - 0.2 [facility] Comment Manual Diff Not Indicated [facility] Blood specimen (specimen) BLOOD SPECIMEN / Unknown 06/01/2011 12:13 PM HARBOR PILOT 06/01/2011 12:19 PM HARBOR PILOT Bradford Iniguez MD LAB - HEMATOLOGY ORD ERABLES [facility] [address] [place] [address] * (ABNORMAL) COMPREHENSIVE METABOLIC PANEL (06/01/2011 12:13 PM HARBOR PILOT) Only the most recent of2 resultswithin the time period is included. BUN 13 7.0 - 21.0 mg/dl [facility] Sodium 143 136 - 145 mmol/L [facility] Potassium 4.5 3.5 - 5.1 mmol/L [facility] Chloride 106 98.0 - 107.0 mmol/L [facility] Glucose 90 74 - 106 mg/dl [facility] Creatinine 0.66 0.5 - 1.3 mg/dl [facility] AST 8 5 - 40 U/L [facility] Alkaline Phosphatase 64 38 - 126 U/L [facility] Calcium 9.0 8.5 - 10.1 mg/dl [facility] Bilirubin Total 0.5 0.2 - 1.0 mg/dl [facility] Albumin 4.6 3.4 - 5.0 gm/dl [facility] Protein Total 8.5(H) 6.4 - 8.2 gm/dl [facility] CO2 28 22.0 - 30.0 mEq/L [facility] ALT 21 12 - 78 U/L [facility] eGFR by MDRD 131 mL/min/1.7 3m2 [facility] Anion Gap 9.0 [facility] Blood specimen (specimen) BLOOD SPECIMEN / Unknown 06/01/2011 12:13 PM HARBOR PILOT 06/01/2011 12:18 PM HARBOR PILOT Bradford Iniguez MD LAB - CHEMISTRY GERALDO CHIN Performing Organization Address [facility] de Phone Number [facility] [address] [place] [address] * MAGNESIUM BLOOD (06/01/2011 12:13 PM HARBOR PILOT) Magnesium 2.0 1.6 - 2.6 mg/dl [facility] Blood specimen (specimen) BLOOD SPECIMEN / Unknown 06/01/2011 12:13 PM HARBOR PILOT 06/01/2011 12:18 PM HARBOR PILOT Bradford Iniguez MD LAB - CHEMISTRY GERALDO CHIN Performing Organization Address [facility] de Phone Number [facility] [address] [place] [address] * OCCULT BLOOD FECES 1-3 IMMUNOASSAY (02/07/2011 5:00 PM CDT) Pathologist [facility] Occult Blood Immunoassay Negative Negative [facility] ACCOUNT BILL STOOL SPECIMEN / Unknown 02/07/2011 5:00 PM CDT 02/09/2011 1:40 PM CDT Narrative Resulting Agency Comment [facility] [address] ??[facility] [id number] Ashish Valadez MD LAB - BODY FLUID ORD ERABLES Performing Organization Address [facility] de Phone Number [facility] ACCOUNT BILL * HEMOGLOBIN A1C (02/02/2011 1:27 PM CDT) Hemoglobin A1c 5.2 4.8 - 5.6 % [facility] ACCOUNT BILL Comment: ? Increased risk for diabetes: ?5.7 - 6.4 ? Diabetes: ?>6.4 ? Glycemic control for adults with diabetes: ? <7.0 BLOOD SPECIMEN / Unknown 02/02/2011 1:27 PM CDT 02/02/2011 4:10 PM CDT Narrative Resulting Agency Comment [facility] [address] ??[facility] [phone] Ashish Valadez MD LAB - CHEMISTRY GERALDO CHIN Performing Organization Address [facility] de Phone Number [facility] ACCOUNT BILL * PROSTATE SPECIFIC ANTIGEN SCREEN (02/02/2011 1:27 PM CDT) PSA 0.9 0.0 - 4.0 ng/mL [facility] ACCOUNT BILL Comment: Silva ECLIA methodology. ? . According to the [place] [employer], Serum PSA should decrease and remain at undetectable levels after radical prostatectomy. The AUA defines biochemical recurrence as an initial PSA value 0.2 ng/mL or greater followed by a subsequent confirmatory PSA value 0.2 ng/mL or greater. Values obtained with different assay methods or kits cannot be used interchangeably. Results cannot be interpreted as absolute evidence of the presence or absence of malignant disease. BLOOD SPECIMEN / Unknown 02/02/2011 1:27 PM CDT 02/02/2011 4:10 PM CDT Narrative Resulting Agency Comment [facility] [address] ??[facility] [phone] Ashish Valadez MD LAB - CHEMISTRY GERALDO CHIN Performing Organization Address [facility] de Phone Number [facility] ACCOUNT BILL * TSH (02/02/2011 1:27 PM CDT) TSH 1.930 0.450 - 4.500 uIU/mL [facility] ACCOUNT BILL BLOOD SPECIMEN / Unknown 02/02/2011 1:27 PM CDT 02/02/2011 4:10 PM CDT Narrative Resulting Agency Comment [facility] [address] ??[facility] [id number] Ashish Valadez MD LAB - CHEMISTRY GERALDO CHIN [facility] ACCOUNT BILL * (ABNORMAL) LIPID PROFILE (02/02/2011 1:27 PM CDT) Cholesterol 191 100 - 199 mg/dL [facility] ACCOUNT BILL Triglycerides 143 0 - 149 mg/dL [facility] ACCOUNT BILL HDL Cholesterol 53 >39 mg/dL [facility] ACCOUNT BILL Comment: According to ATP-III Guidelines, HDL-C >59 mg/dL is considered a negative risk factor for CHD. VLDL Calculated 29 5 - 40 mg/dL [facility] ACCOUNT BILL LDL Calculated 109(H) 0 - 99 mg/dL [facility] ACCOUNT BILL BLOOD SPECIMEN / Unknown 02/02/2011 1:27 PM CDT 02/02/2011 4:10 PM CDT Narrative Resulting Agency Comment [facility] [address] ??[facility] [phone] Ashish Valadez MD LAB - CHEMISTRY GERALDO CHIN [facility] ACCOUNT BILL Care Teams Java Spring Developer Relationship Specialty [place] [address] [address] PCP - General 10/18/20
--- OUTSIDE RECORDS SUMMARY | 2024-06-09 13:05 | XMS_ITS | Referral Summary ---
Author Organization [facility] Address [address] [place] [address] Care Team Providers Care Property Insurance Inspector Name Role Phone Jose Naidu MD Primary Care Prov ider Source Comments [facility] [employer],non-owned Affiliates and Associated Physician Practices is amultiple site organization consisting of ambulatory clinics and hospital sitesin [place], [place], [place] and [place]. This disclosure is being madepursuant to the Care Everywhere program and may not contain all information available regarding this patient. Last updated 18.[facility] [employer] Allergies Active Allergy Reactions Criticality Noted Date Comments Penicillins 02/02/2011 Medications * Be aware that medications may not be up to date on this document. Alwaysverify current medications with the patient. Medication Sig Dispensed Refills Start Date End Date Status mometasone (NASONEX) 50 MCG/ACT nasal sprayIndications:Con gestion,AR (allergic rhinitis) [place] 2 Sprays into each nostril once daily. 1 Inhaler 5 02/02/2011 Active triamcinolone acetonide (KENALOG) 0.1 % creamIndications:Num mular eczema Apply to affected area 2 times daily. Use for 2 weeks max at a time. 60 g 1 03/03/2011 Active multivitamin daily (THERAGRAN) tablet Take 1 Tab by mouth daily with food. Active diazepam (VALIUM) 5 MG tablet Take 1 Tab by mouth 3 times daily. 21 Tab 0 06/03/2011 Active meclizine (ANTIVERT) 25 MG tablet Take 1 Tab by mouth 3 times daily. 30 Tab 0 06/03/2011 Active oxycodone-acetaminop hen (PERCOCET) 5-325 MG tablet Take 1-2 Tabs by mouth every 4 hours as needed. 28 Tab 0 06/03/2011 Active lisinopril (PRINIVIL; ZESTRIL) 10 MG tabletIndications:HT N (hypertension) Take 1 Tab by mouth once daily. 90 Tab 0 10/20/2011 Active chlorthalidone (HYGROTON) 25 MG tabletIndications:HT N (hypertension) Take 1 Tab by mouth once daily. 90 Tab 0 10/20/2011 Active Active Problems Problem Noted Date Diagnosed Date [...] Comments Blood Pressure 121/81 06/03/2011 7:14 AM FISHER CRAB Pulse 55 06/03/2011 7:14 AM FISHER CRAB Temperature 36.4 ??C (97.6 ??F) 06/03/2011 7:14 AM CS T Respiratory Rate 20 06/03/2011 7:14 AM FISHER CRAB Oxygen Saturation 96% 06/03/2011 7:14 AM FISHER CRAB Inhaled Oxygen Concentration - - Weight 117.9 kg (260 lb) 06/01/2011 11:54 AM FISHER CRAB Height 185.4 cm (6' 1 ) 06/01/2011 11:54 AM FISHER CRAB Body Mass Index 34.3 06/01/2011 11:54 AM FISHER CRAB Plan of Treatment Not on file Procedures Procedure Name Priority Date/Time Associated Diagnosis Comments OCCULT BLOOD FECES FIT IMMUNOASSAY Routine 02/07/2011 5:00 PM CDT Blood stool LIPID PROFILE Routine 02/02/2011 1:27 PM CDT Routine general medical examination at a health care facility from Last 3 Months or Most Recently Relevant to Health Maintenance Results * OCCULT BLOOD FECES 1-3 IMMUNOASSAY (02/07/2011 5:00 PM CDT) Occult Blood Immunoassay Negative Negative [facility] ACCOUNT BILL STOOL SPECIMEN / Unknown 02/07/2011 5:00 PM CDT 02/09/2011 1:40 PM CDT Narrative Resulting Agency Comment [facility] [place] [id number] [facility] ??[facility] [phone] Murphy Valadez MD LAB - BODY FLUID ORD ERABLES Performing Organization Address City/[facility]/ZIP Co de Phone Number [facility] ACCOUNT BILL * (ABNORMAL) LIPID PROFILE [...] PM CDT Narrative Resulting Agency Comment [facility] [place] [id number] [facility] ??[facility] [phone] Murphy Valadez MD LAB - CHEMISTRY ORDE RABOMAR Performing Organization Address [facility]/ZIP Co de Phone Number [facility] ACCOUNT BILL from Last 3 Months or Most Recently Relevant to Health Maintenance Advance Directives * FULL RESUSCITATION (Latest Code Status on File) Date Activated Date Inactivated Comments 06/01/2011 5:59 PM 06/04/2011 12:05 AM Care Teams Property Insurance Inspector Relationship Specialty [place] [id number] [address] PCP - General 10/18/20
--- OUTSIDE RECORDS SUMMARY | 2024-06-09 13:05 | XMS_ITS | Clinical Summary ---
Author Organization [facility] , [facility] Address [address] [place] [address] Phone Care Team Providers Care Retail Support Associate Name Role Phone Unavailable Primary Care Provider Unavailabl e Allergies Active Allergy Reactions Criticality Noted Date Comments Penicillins Anaphylaxis,Rash High 02/02/2011 Medications albuterol HFA (PROVENTIL HFA;VENTOLIN HFA) 108 (90 Base) MCG/ACT inhaler TAKE 2 PUFFS BY MOUTH EVERY 4 HOURS NEEDED Active amitriptyline (ELAVIL) 100 MG tablet Take 1 tablet by mouth 1 (one) time each day in the evening 08/04/2019 Active cyanocobalamin (VITAMIN B-12) 1000 MCG tablet Take 100 mcg by mouth 1 (one) time each day 02/02/2020 Active dilTIAZem (TIAZAC) 240 MG 24 hr capsule Take 1 tablet by mouth 1 (one) time each day 12/09/2019 Active dofetilide (TIKOSYN) 250 MCG capsule Take 250 mcg by mouth in the morning and 250 mcg in the evening. 07/08/2020 Active ergocalciferol 1.25 MG (97135 UT) capsule Take 1 capsule by mouth 1 (one) time per week 10/13/2019 Active ferrous sulfate 325 (65 Fe) MG tablet Take 1 tablet by mouth 1 (one) time each day Active folic acid (FOLVITE) 1 MG tablet Take 1 tablet by mouth 1 (one) time each day 04/05/2020 Active furosemide (LASIX) 40 MG tablet Take 1 tablet by mouth 1 (one) time each day 09/02/2020 Active lisinopril 40 MG tablet Take 1 tablet by mouth 1 (one) time each day 09/26/2019 Active magnesium oxide (MAG-OX) 400 MG tablet Take 1 tablet by mouth in the morning and 1 tablet in the evening. 04/02/2020 Active omeprazole (PriLOSEC) [address] capsule Take 1 tablet by mouth 1 (one) time each day 02/01/2017 Active rivaroxaban (XARELTO) 20 MG tablet TAKE 1 TABLET BY MOUTH EVERY EVENING WITH A MEAL 01/02/2020 Active rosuvastatin (CRESTOR) 40 MG tablet Take 1 tablet by mouth 1 (one) time each day Active sertraline (ZOLOFT) 100 MG tablet Take 1 tablet by mouth 1 (one) time each day 05/29/2019 Active Glycopyrrolate- Formoterol (BEVESPI IN) Inhale 2.4 mg 2 (two) times a day Active Active Problems Problem Noted Date Diagnosed Date Hematuria 09/13/2021 Stage 1 chronic kidney disease 09/13/2021 Diabetes mellitus 10/13/2020 Chronic obstructive pulmonary disease 06/09/2020 Hyperlipidemia 04/05/2020 Iron deficiency anemia 03/08/2020 Overview (07/20/2021): sandra bains Atrial fibrillation 11/03/2019 Obstructive sleep apnea 10/15/2019 Gastro-esophageal reflux disease without esophag itis 06/25/2015 Cardiac murmur 06/25/2015 Essential hypertension 02/08/2011 Overview (07/20/2021): Last Assessment & Plan: Avoid beta-blockers. Okay to continue on lisinopril hydrochlorothiazide. Immunizations Name Administration Dates Next Due Influenza, Quadrivalent, With Preservative 02/13,02/13/2020 Pfizer SARS-COV-2 07/20/2020 Pneumococcal Polysaccharide 12/17/2019 Zoster 05/11/2020,02/13/2020 Family History Medical History Relation Comments Hypertension Brother Hypertension Father Heart disease Maternal Grandfather Hypertension Maternal Grandfather Kidney disease Maternal Grandfather Diabetes Maternal Grandmother Hypertension Maternal Grandmother Stroke Maternal Grandmother Cancer Mother Diabetes Mother Hypertension Mother Diabetes Sister Relation Status Comments Brother Father Maternal Grandfather Maternal Grandmother Mother Sister Social History Tobacco Use Types Packs/Day Years Used Date Smoking Tobacco: Never Smokeless Tobacco: Never Tobacco Cessation:Counseling Given: Not Answered Alcohol Use Standard Drinks/Week Comments Yes 6 (1 standard drink = 0.6 oz pur e alcohol) Sex and Gender Information Value Date Recorded Sex Assigned at Not on file Legal Sex Male 10:07 AM EDT Gender Identity Not on file Sexual Orientation Not on file Last Filed Vital Signs Vital Sign Reading Time Taken Comments Blood Pressure 112/68 06/06/2022 11:19 AM MEDICAL LOGISTICS SPECIALIST Pulse 81 06/06/2022 11:19 AM MEDICAL LOGISTICS SPECIALIST Temperature 36.1 ??C (97 ??F) 06/06/2022 11: 19 AM MEDICAL LOGISTICS SPECIALIST Respiratory Rate 22 06/06/2022 11:1 9 AM MEDICAL LOGISTICS SPECIALIST Oxygen Saturation 95% 06/06/2022 11: 19 AM MEDICAL LOGISTICS SPECIALIST Inhaled Oxygen Concentration - - Weight 182 kg (402 lb) 06/06/2022 11:19 AM MEDICAL LOGISTICS SPECIALIST Patient in a wheelchair. Height 181.6 cm (5' 11.5 ) 06/06/2022 1 1:19 AM MEDICAL LOGISTICS SPECIALIST Body Mass Index 55.29 06/06/2022 11:19 AM MEDICAL LOGISTICS SPECIALIST Plan of Treatment Health Maintenance Due Date Last Done Comments Hepatitis B Vaccine (1 of 3 - 19+ 3-dose series) 1985 Colorectal Cancer Screening: Annual FOBT 11/08/2015 Colorectal Cancer Screening: Colonoscopy 11/08/2015 Colorectal Cancer Screening: Sigmoidoscopy 11/08/2015 Pneumococcal Vaccine: Pediat rics (0 to 5 Years) and At-Risk Patients (6 to 64 Years) (2 of 2 - PCV) 12/16/2020 12/17/2019 Diabetes: Ophthalmology Exam 12/21/2020 Diabetes: Pedal Pulse Checked 12/21/2020 Diabetes: Sensory Foot Exam 12/21/2020 Diabetes: Visual Foot Exam 12/21/2020 Diabetes: Hemoglobin A1C 09/03/2022 023, 01/11/2022, 10/13/2020 Influenza Vaccine (#1) 2024 2, 04/25/2021, 02/14/2020, Additional history exists Procedures Procedure Name Priority Date/Time Associated Diagnosis Comments EXT RESULT ENTRY Routine 06/05/2022 from Last 3 Months or Most Recently Relevant to Health Maintenance Results * (ABNORMAL) EXT RESULT ENTRY (06/05/2022) WBC 7.9 3.3 - 10.0 10*3/ML Red Blood Cell Count 4.03 Hemoglobin 12.3(A) 13.5 - 17.5 Hematocrit 38.8(A) 41.0 - 53.0 Platelets 182 150 - 399 10*3/UL Sodium 138 137 - 147 Potassium 4.8 3.4 - 5.5 Chloride 98.0(A) 99.0 - 108.0 Carbon Dioxide 33 mmol/L Anion Gap 7 <=30 MMOL/L Glucose 109 60 - 200 BUN 17 4 - 21 mg/dL Creatinine 0.78 0.60 - 1.30 mg/dL Total Protein 8.2 6.4 - 8.2 G/DL Albumin 3.7 3.5 - 5.0 g/dL Calcium 8.9 8.7 - 10.7 mg/dL Phosphorus, Serum 3.8 eGFR Non-Afr Mauritian >60 Osmolality Calc 288.0 mosm/kg Hemoglobin A1C 5.8 4.0 - 6.0 Protein Urine Random 68.9 Creatinine, Urine Random 108.03 mg/dL Urine Protein/Creatini ne Ratio 0.64 mg/g creat Glucose, UA Negative mg/dL Bilirubin, UA Negative Ketones, UA Negative Spec Grav, UA 1.025 Blood, UA 1+ Felipe/ul pH, UA 6.5 Protein, UA 1+ mg/dL Urobilinogen, UA 0.2 Nitrite, UA Negative Leukocytes, UA Negative WBC, Urine None Seen None Seen, Occasional, 0-2 /HPF RBC, Urine 0-2 None Seen, Occasional /HPF Epithelial Cells in Urine Few /HPF Bacteria, Urine Few(A) None Seen, Occasional /HPF Triglycerides 79 Cholesterol, Total 182 HDL 66 mg/dL LDL-Calculated 100 06/05/2022 Historical Provider LAB BLOOD ORDERABLES Silvina l Result from Last 3 Months or Most Recently Relevant to Health Maintenance Insurance [employer]
--- OUTSIDE RECORDS SUMMARY | 2024-06-09 13:05 | XMS_ITS | Clinical Summary ---
Author Organization [facility] [employer] Address [address] [place] [address] Care Team Providers Care Shoddy Mill Worker Name Role Phone Jose Naidu MD Primary Care Prov ider Source Comments [facility] [employer],non-owned Affiliates and Associated Physician Practices is amultiple site organization consisting of ambulatory clinics and hospital sitesin [place], [place], [place] and [place]. This disclosure is being madepursuant to the Care Everywhere program and may not contain all information available regarding this patient. Last updated 18.[facility] [employer] Allergies Active Allergy Reactions Criticality Noted Date Comments Penicillins 02/02/2011 Medications * Be aware that medications may not be up to date on this document. Alwaysverify current medications with the patient. Medication Sig Dispensed Refills Start Date End Date Status mometasone (NASONEX) 50 MCG/ACT nasal sprayIndications:Con gestion,AR (allergic rhinitis) [place] 2 Sprays into each nostril once daily. [...] AR (allergic rhinitis) 02/08/2011 Nummular eczema 02/08/2011 Family History Medical History Relation Name Comments Cancer Mother Heart Failure Paternal Grandfather Relation Name Status Comments Brother Father Mother Paternal Grandfather Sister 1 Alive Sister 2 Social History Tobacco Use Types Packs/Day Years [...] Comments Blood Pressure 121/81 06/03/2011 7:14 AM GLASS WORKER Pulse 55 06/03/2011 7:14 AM GLASS WORKER Temperature 36.4 ??C (97.6 ??F) 06/03/2011 7:14 AM CS T Respiratory Rate 20 06/03/2011 7:14 AM GLASS WORKER Oxygen Saturation 96% 06/03/2011 7:14 AM GLASS WORKER Inhaled Oxygen Concentration - - Weight 117.9 kg (260 lb) 06/01/2011 11:54 AM GLASS WORKER Height 185.4 cm (6' 1 ) 06/01/2011 11:54 AM GLASS WORKER Body Mass Index 34.3 06/01/2011 11:54 AM GLASS WORKER Plan of Treatment Health Maintenance Due Date Last Done Comments COLOGUARD (AGES 45-75) - COL ON CA SCREENING 1966 COLON MONITORING 1966 COLONOSCOPY - COLON CA SCREENING 1966 CT COLONOGRAPHY - COLON CA SCREENING 1966 FLEX SIG - COLON CA SCREENING 1966 HIV SCREENING 1981 HEPATITIS C SCREENING 11/02/1984 DTAP/TDAP/TD VACCINES (1 - Tdap) 1985 HEPATITIS B VACCINE (1 of 3 - 19+ 3-dose series) 1985 Colorectal Cancer Screening 02/08/2012 FIT - COLON CA SCREENING 02/08/2012 02/07/2011 LIPID TESTING 02/03/2016 02/02/2011 PNEUMOCOCCAL VACCINE 50+ (1 of 1 - PCV) 2016 ZOSTER VACCINE (1 of 2) 2016 COVID-19 VACCINE (1 - 2023-2 5 season) 2024 INFLUENZA VACCINE (#1) 2024 DEPRESSION SCREENING 05/14/2024 MEDICARE AWV ? CALENDAR YEAR 2024 HIB VACCINE Aged Out No longer eligi ble based on patient's age to complete this topic HPV VACCINE Aged Out No longer eligi ble based on patient's age to complete this topic MENINGOCOCCAL (Group B) VACCINE Aged Out No longer eligible based on patient's age to complete this topic MENINGOCOCCAL VACCINE Aged Out No nakul robinson eligible based on patient's age to complete this topic PNEUMOCOCCAL VACCINE Aged Out No long er eligible based on patient's age to complete this topic Procedures Procedure Name Priority Date/Time Associated Diagnosis [...] PM CDT Narrative Resulting Agency Comment [facility] [address] ??[facility] [phone] Murphy Valadez MD LAB - BODY FLUID ORD ERABLES [facility] ACCOUNT BILL * (ABNORMAL) LIPID PROFILE [...] PM CDT Narrative Resulting Agency Comment [facility] [address] ??[facility] [phone] Murphy Valadez MD LAB - CHEMISTRY GERALDO CHIN [facility] ACCOUNT BILL from Last 3 Months or Most Recently Relevant to Health Maintenance Advance Directives * FULL RESUSCITATION (Latest Code Status on File) Date Activated Date Inactivated Comments 06/01/2011 5:59 PM 06/04/2011 12:05 AM Care Teams Shoddy Mill Worker Relationship Specialty [place] [address] [address] PCP - General 10/18/20
--- OUTSIDE RECORDS SUMMARY | 2024-06-09 13:05 | XMS_ITS | Clinical Summary ---
Author Organization [facility] Address [address] [place] [address]. [place] [address] [place] [address] Care Team Providers Care Blue Line Trimmer Name Role Phone Jeniffer Veras NP Primary Care Provider [phone] Allergies Active Allergy Reactions Criticality Noted Date Comments Penicillins Unknown 09/14/2021 Medications furosemide 40 MG tabletIndicatio ns:Diuretic Therapy Take 40 mg by mouth daily. Indications: Treatment with Diuretic Therapy 07/30/19 22 Active lisinopril 40 MG tabletIndicatio ns:Hypertension Take 40 mg by mouth daily. Indications: High Blood Pressure Disorder 09/26/19 20 Active amitriptyline 100 MG tabletIndicatio ns:Insomnia Take 100 mg by mouth nightly at bedtime. Indications: Trouble Sleeping 08/04/19 20 Active omeprazole 40 MG capsuleIndicati ons:Acid Indigestion Take 40 mg by mouth daily. Indications: Acid Indigestion 05/29/19 20 Active folic acid 1 MG tabletIndicatio ns:Anemia Take 1 mg by mouth daily. Indications: Anemia 07/24/19 21 Active rosuvastatin 5 MG tabletIndicatio ns:Hyperlipidem ia Take 40 mg by mouth daily. Indications: High Amount of Fats in the Blood 09/05/19 22 Active dilTIAZem CD 240 MG 24 hr capsuleIndicati ons:Antihyperte nsive Therapy Take 240 mg by mouth daily. Indications: Therapy to Treat High Blood Pressure 07/24/19 22 Active albuterol (2.5 MG/3ML) 0.083% nebulizer solutionIndicat ions:Shortness of breath Take 2.5 mg by nebulization every 6 (six) hours as needed for Shortness of breath. Indications: Shortness of breath 10/10/19 Active ipratropium 0.02 % nebulizer solutionIndicat ions:Shortness of breath Take 500 mcg by nebulization 3 (three) times daily. Indications: Shortness of breath 10/10/19 Active OXYGENIndicatio ns:oxygen therapy 5 L/min by Nasal route continuous. Indications: oxygen therapy 09/05/19 Active ammonium lactate 12 % lotionIndicatio ns:dry skin Apply 1 each topically 2 (two) times daily. Indications: dry skin 09/13/19 Active rivaroxaban 20 MG Tab tabletIndicatio ns:anticoagulan t Take 20 mg by mouth daily with supper. Indications: anticoagulant 09/13/19 Active Magnesium 400 MG CapIndications: supplement Take 1 tablet by mouth 2 (two) times daily. Indications: supplement 09/13/19 Active sertraline 100 MG tabletIndicatio ns:antidepressa nt Take 100 mg by mouth daily. Indications: antidepressant 09/13/19 Active Social History Tobacco Use Types Packs/Day Years Used Date Smoking Tobacco: Never Assessed Sex and Gender Information Value Date Recorded Sex Assigned at Not on file Legal Sex Male 10:54 AM CDT Gender Identity Not on file Sexual Orientation Not on file Last Filed Vital Signs Vital Sign Reading Time Taken Comments Blood Pressure 142/78 09/26/2021 12:37 PM CDT Pulse 74 09/26/2021 12:37 PM CDT Temperature 36.2 ??C (97.2 ??F) 09/26/2021 12:37 PM C DT Respiratory Rate 18 09/26/2021 12:37 PM CDT Oxygen Saturation 96% 09/26/2021 12:37 PM CDT Inhaled Oxygen Concentration - - Weight - - Height - - Body Mass Index - - Plan of Treatment Health Maintenance Due Date Last Done Comments Colorectal Cancer Screening Colonoscopy (10 Years) 1966 Annual Physical 1969 Hepatitis C 1984 Hepatitis B Vaccines (1 of 3 - 19+ 3-dose series) 1985 COVID-19 Vaccine ( season) 2024 03/16/2022, 09/09/2020, 08/20/2020, Additional history exists Influenza Adult (#1) 2024 03/16/2022, 04/25/2021, 02/14/2020, Additional history exists DTaP, Tdap and Td Vaccines (4 - Td or Tdap) 10/12/2030 10/12/2020, 12/07/2019, 07/05/2016, Additional history exists Pneumococcal Vaccine: Pediatrics (0 to 5 Years) and At-Risk Patients (6 to 64 Years) Aged Out 12/17/2019 No longer eligible based on patient's age to complete this topic Zoster Vaccines Completed 05/11/2020, 02/13/2020 Meningococcal Vaccine Aged Out No [email or web address] eligible based on patient's age to complete this topic RSV Immunizations Under 20 Months Aged Out No longer eligible based on patient's age to complete this topic Insurance [employer] Advance Directives * Full Code (Latest Code Status on File) Date Activated Date Inactivated Comments 11/24/2021 2:21 PM Care Teams Blue Line Trimmer Relationship Specialty Start Date End Date Jeniffer Veras NP [facility] [place] [address] PCP - General NURSE PRACTITIONER 09/01/21
--- OUTSIDE RECORDS SUMMARY | 2024-06-09 13:05 | XMS_ITS | Data Portability ---
Author Organization [place] - [facility], Main Office Address [address] [place] [address] Assessment Encounter Date Assessment Date Assessment LastModified by Organization Details LastModified Time 09/27/2022 09/27/2022 WEA- 11/17/21 Cscope- Colonoscopy 09/2020- Nyazee- WNL- repeat 2030 PSA-08/02/21 Call office if worse, ER if life threatening illness RTC 3 months He voices understanding of plan and agrees [email or web address] Not available 09/27/2022 15:24:07 12/19/2022 12/19/2022 Spent up to 50 minutes preparing to see the patient (eg, review of tests), obtaining and/or reviewing separately obtained history, performing a medically appropriate examination and evaluation, counseling and educating the patient, ordering medications, tests, along with documenting clinical information in the electronic health record, independently interpreting results and communicating results to the patient. Not available 12/19/2022 15:51:36 01/31/2023 01/31/2023 The patient gave verbal consent using TelePhonic services and the consent is documented in the medical record prior to using the service. The patient has been informed of what a TeleMedicine visit is. Patient is located at home. Provider is located at office. Names and roles of persons in addition to the patient and provider participating in telemedicine services include none. The patient had a 23 minute TeleMedicine consultation via phone call to discuss the following: WEA- 11/17/21 Cscope- Colonoscopy 09/2020- Nyazee- WNL- repeat 2030 PSA-08/02/21 Call office if worse, ER if life threatening illness RTC 3 months He voices understanding of plan and agrees He wants to wait on labs until next visit- it's difficult for him to get out of the house [email or web address] Not available 01/31/2023 14:03:14 Plan of Treatment Reminders Order Date Submit Date Provider Last Modified By Organization Details Last Modified Time Details Appointments None recorded. Lab HbA1c (hemoglobin A1c), blood [address] (Lab), [address] [place], [address], 14:42:58 microalbumi n/creatinin e, mass ratio, urine [address] (Lab), [address] [place], [address], 3 14:42:58 lipid panel, serum 2022 023 [facility] (Lab), [address] [place], [address], 3 19:15:11 TSH, serum or plasma 2022 023 [facility] (Lab), [address] [place], [address], 3 19:34:59 T4, free, serum 2022 023 [facility] (Lab), [address] [place], [address], 3 19:17:26 vitamin B12 + folate, serum or blood [address] (Lab), [address] [place], [address], 3 14:42:58 vitamin D, 25-hydroxy, total, serum [address] (Lab), [address] [place], [address], 3 14:42:58 CMP, serum or plasma 2022 023 [facility] (Lab), [address] [place], [address], 3 19:15:08 CBC w/ auto diff 2022 023 [facility] (Lab), [address] [place], [address], 3 18:21:37 gas panel, arterial blood 2022 023 [email or web address] 25 [facility], [facility], [address], 3 12:02:11 Referral neurologist referral - Lizzie Winter- [email or web address] 15 [facility], [phone] 2022 023 [email or web address] Not available 4 10:44:46 cardiologis t referral 2022 023 [email or web address] Moose Zelaya , [address] [facility] [address], [place], [address], 4 10:44:25 Procedures None recorded. Surgeries None recorded. Imaging None recorded. Medication Orders None recorded. Patient TargetsNo targets recorded. Patient Instructions Encounter Date Encounter Id Patient Instructions Last Modified By Organization Details Last Modified Time 01/31/2023 [id number] Due to the COVID-19 (Novel Coronavirus) pandemic, it is within this context (and with the understanding that this method of patient encounter is in the patient? s best interest as well as the health and safety of other patients and the public) that ? telehealth? is being provided for this patient encounter rather than a [id number] visit. This patient encounter is appropriate at this time. This patient has been advised of the potential risks and limitations of this mode of treatment (including, but not limited to, the absence of in-person examination) and has agreed to be treated in a remote fashion despite these risks. Any and all of the patient? s/patient? s family? s questions on this issue have been answered, and I have made no promises or guarantees to the patient. The patient has also been advised to contact this office for worsening conditions or problems, and seek emergency medical treatment and/or call 911 if the patient deems either necessary. HPI and/or vitals, if listed, were provided by the patient. 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 Referral for Pa roxysmal atrial fibrillation Referring Physician: Jeniffer Veras, Internal Medicine, Encounter Date: 09/27/2022 Neurologist Referral for Carmelo yneuropathy Lizzie Winter- [id number] [facility], [phone] Referring Physician: Jenfifer Veras, Internal Medicine, Encounter Date: 09/27/2022 Results Created Date Observation Date Name Description Value Unit Range Abnormal Flag Note LastModifiedBy Organization Detail LastModifiedTime 09/28/1909/27/2022 CBC/C OMPLE TE BLD COUNT W/DIF F white blood cells 8.5 x10'3 /uL 4.2-10 .8 Not Available [facility] (Lab) [address] [place], [address], 09/27/2022 18:21:37 09/28/19 23 09/27/2022 CBC/C OMPLE TE BLD COUNT W/DIF F red blood cells 3.88 x10'6 /uL 4.10-5 .80 low Not Available [facility] (Lab) [address] [place], [address], 09/27/2022 18:21:37 09/28/1909/27/2022 CBC/C OMPLE TE BLD COUNT W/DIF F hemoglobin 11.4 g/dL 13.2-1 7.0 low Not Available [facility] (Lab) [address] [place], [address], 09/27/2022 18:21:37 09/28/19 23 09/27/2022 CBC/C OMPLE TE BLD COUNT W/DIF F hematocrit 37.9 % 39.3-5 0.0 low Not Available [facility] (Lab) [address] [place], [address], 09/27/2022 18:21:37 09/28/19 23 09/27/2022 CBC/C OMPLE TE BLD COUNT W/DIF F mean red cell volume 97.7 fL 80.0-9 7.0 high Not Available [facility] (Lab) [address] [place], [address], 09/27/2022 18:21:37 09/28/19 23 09/27/2022 CBC/C OMPLE TE BLD COUNT W/DIF F mean red cell hemoglobin 29.4 pg 27.0-3 3.0 Not Available [facility] (Lab) [address] [place], [address], 09/27/2022 18:21:37 09/28/19 23 09/27/2022 CBC/C OMPLE TE BLD COUNT W/DIF F mean RBC HGB concentratio n 30.1 g/dL 31.0-3 6.0 low Not Available [facility] (Lab) [address] [place], [address], 09/27/2022 18:21:37 09/28/19 23 09/27/2022 CBC/C OMPLE TE BLD COUNT W/DIF F red cell distribution width 14.7 % 11.8-1 5.5 Not Available [facility] (Lab) [address] [place], [address], 09/27/2022 18:21:37 09/28/19 23 09/27/2022 CBC/C OMPLE TE BLD COUNT W/DIF F platelets 197 x10'3 /uL 150-40 0 Not Available [facility] (Lab) [address] [place], [address], 09/27/2022 18:21:37 09/28/19 23 09/27/2022 CBC/C OMPLE TE BLD COUNT W/DIF F mean platelet volume 10.6 fL 9.0-12 .4 Not Available [facility] (Lab) [address] [place], [address], 09/27/2022 18:21:37 09/28/19 23 09/27/2022 CBC/C OMPLE TE BLD COUNT W/DIF F neutrophils 80.0 % 39.0-7 2.0 high Not Available [facility] (Lab) [address] [place], [address], 09/27/2022 18:21:37 09/28/19 23 09/27/2022 CBC/C OMPLE TE BLD COUNT W/DIF F lymphocytes 9.3 % 16.0-4 7.0 low Not Available [facility] (Lab) [address] [place], [address], 09/27/2022 18:21:37 09/28/19 23 09/27/2022 CBC/C OMPLE TE BLD COUNT W/DIF F monocytes 5.3 % 5.0-12 .0 Not Available [facility] (Lab) [address] [place], [address], 09/27/2022 18:21:37 09/28/19 23 09/27/2022 CBC/C OMPLE TE BLD COUNT W/DIF F eosinophils 4.4 % 1.0-7. 0 Not Available [facility] (Lab) [address] [place], [address], 09/27/2022 18:21:37 09/28/19 23 09/27/2022 CBC/C OMPLE TE BLD COUNT W/DIF F basophils 0.4 % 0.0-2. 0 Not Available [facility] (Lab) [address] [place], [address], 09/27/2022 18:21:37 09/28/19 23 09/27/2022 CBC/C OMPLE TE BLD COUNT W/DIF F immature granulocytes 0.6 % 0.00-0 .50 high Not Available [facility] (Lab) [address] [place], [address], 09/27/2022 18:21:37 09/28/19 23 09/27/2022 CBC/C OMPLE TE BLD COUNT W/DIF F neutrophils, absolute count 6.77 x10'3 /uL 1.5-8. 0 Not Available [facility] (Lab) [address] [place], [address], 09/27/2022 18:21:37 09/28/19 23 09/27/2022 CBC/C OMPLE TE BLD COUNT W/DIF F lymphocytes, absolute count 0.79 x10'3 /uL 1.07-3 .43 low Not Available [facility] (Lab) [address] [place], [address], 09/27/2022 18:21:37 09/28/19 23 09/27/2022 CBC/C OMPLE TE BLD COUNT W/DIF F monocytes, absolute count 0.45 x10'3 /uL 0.29-0 .99 Not Available [facility] (Lab) [address] [place], [address], 09/27/2022 18:21:37 09/28/19 23 09/27/2022 CBC/C OMPLE TE BLD COUNT W/DIF F eosinophils, absolute count 0.37 x10'3 /uL 0.02-0 .53 Not Available [facility] (Lab) [address] [place], [address], 09/27/2022 18:21:37 09/28/19 23 09/27/2022 CBC/C OMPLE TE BLD COUNT W/DIF F basophils, absolute count 0.03 x10'3 /uL 0.01-0 .08 Not Available [facility] (Lab) [address] [place], [address], 09/27/2022 18:21:37 09/28/19 23 09/27/2022 CBC/C OMPLE TE BLD COUNT W/DIF F immature granulocytes ,absolute 0.05 x10'3 /uL 0.00-0 .05 Not Available [facility] (Lab) [address] [place], [address], 09/27/2022 18:21:37 09/28/19 23 09/27/2022 CBC/C OMPLE TE BLD COUNT W/DIF F nucleated red blood cells 0.0 % -0 Not Available [facility] (Lab) [address] [place], [address], 09/27/2022 18:21:37 09/28/19 23 09/27/2022 CBC/C OMPLE TE BLD COUNT W/DIF F NRBC# 0.00 x10'3 /uL Not Available [facility] (Lab) [address] [place], [address], 09/27/2022 18:21:37 09/28/19 23 09/27/2022 COMPR EHENS ESTEFANIA METAB OLIC PANEL sodium 134 mmol/ L 137-14 5 low Not Available [facility] (Lab) [address] [place], [address], 09/27/2022 19:15:08 09/28/19 23 09/27/2022 COMPR EHENS ESTEFANIA METAB OLIC PANEL potassium 4.3 mmol/ L 3.5-5. 1 Not Available [facility] (Lab) [address] [place], [address], 09/27/2022 19:15:08 09/28/19 23 09/27/2022 COMPR EHENS ESTEFANIA METAB OLIC PANEL chloride 93 mmol/ L 98-107 low Not Available [facility] (Lab) [address] [place], [address], 09/27/2022 19:15:08 09/28/19 23 09/27/2022 COMPR EHENS ESTEFANIA METAB OLIC PANEL carbon dioxide 36 mmol/ L 22-30 high Not Available [facility] (Lab) [address] [place], [address], 09/27/2022 19:15:08 09/28/19 23 09/27/2022 COMPR EHENS ESTEFANIA METAB OLIC PANEL anion gap 9.3 mmol/ L 14-22 low Not Available [facility] (Lab) [address] [place], [address], 09/27/2022 19:15:08 09/28/19 23 09/27/2022 COMPR EHENS ESTEFANIA METAB OLIC PANEL glucose 118 mg/dL 70-99 high Not Available [facility] (Lab) [address] [place], [address], 09/27/2022 19:15:08 09/28/19 23 09/27/2022 COMPR EHENS ESTEFANIA METAB OLIC PANEL BUN 13 mg/dL 8-19 Not Available [facility] (Lab) [address] [place], [address], 09/27/2022 19:15:08 09/28/19 23 09/27/2022 COMPR EHENS ESTEFANIA METAB OLIC PANEL creatinine 0.69 mg/dL 0.66-1 .25 Not Available [facility] (Lab) [address] [place], [address], 09/27/2022 19:15:08 09/28/19 23 09/27/2022 COMPR EHENS ESTEFANIA METAB OLIC PANEL GFR >60 Refer ence Range : [place] ge GFR Healt hy Adult : >60 mL/mi n/1.7 3 m2 Chron ic Kidne y Disea se: 15-60 mL/mi n/1.7 3 m2 Kidne y Failu re: <15/m L/min /1.73 m2 www.n iddk. nih.g ov The MDRD study equat ion has not been valid ated in child bridgett <18 years of age; pregn ant women ; the elder ly >85 years of age; or in some racia l or ethni c subgr oups, such as Hispa nics. Outsi de the valid ated maribel eters , estim ated GFR is less accur ate, requi ring clini yasmany judgm ent on a case- by-ca se basis . Clini yasmany inter preta tion for other races and ages must be made by the clini erica. The MDRD study equat ion has not been valid ated for the evalu ation of serum creat inine relat ed to nutri alfredo l statu s or medic ation usage . For perso ns <18 years of age, a pedia tric GFR calcu lator is avail able on the [facility] websi te: https ://claus silverio.tash calvillo.dahiana davis/pr ofess ional s/kdo qi/gf r_cal culat or Not Available [facility] (Lab) [address] [place], [address], 09/27/2022 19:15:08 09/28/19 23 09/27/2022 COMPR EHENS ESTEFANIA METAB OLIC PANEL alkaline phosphatase 77 U/L 38-126 Not Available [facility] (Lab) [address] [place], [address], 09/27/2022 19:15:08 09/28/19 23 09/27/2022 COMPR EHENS ESTEFANIA METAB OLIC PANEL alanine aminotransfe rase 20 U/L 0-50 Not Available [facility] (Lab) [address] [place], [address], 09/27/2022 19:15:08 09/28/19 23 09/27/2022 COMPR EHENS ESTEFANIA METAB OLIC PANEL aspartate aminotransfe rase 42 U/L 15-46 Not Available [facility] (Lab) [address] [place], [address], 09/27/2022 19:15:08 09/28/19 23 09/27/2022 COMPR EHENS ESTEFANIA METAB OLIC PANEL bilirubin, total 0.40 mg/dL 0.20-1 .30 Not Available [facility] (Lab) [address] [place], [address], 09/27/2022 19:15:08 09/28/19 23 09/27/2022 COMPR EHENS ESTEFANIA METAB OLIC PANEL calcium 8.5 mg/dL 8.4-10 .2 Not Available [facility] (Lab) [address] [place], [address], 09/27/2022 19:15:08 09/28/19 23 09/27/2022 COMPR EHENS ESTEFANIA METAB OLIC PANEL total protein 7.5 g/dL 6.3-8. 2 Not Available [facility] (Lab) [address] [place], [address], 09/27/2022 19:15:08 09/28/19 23 09/27/2022 COMPR EHENS ESTEFANIA METAB OLIC PANEL albumin 3.7 g/dL 3.4-5. 0 Not Available [facility] (Lab) [address] [place], [address], 09/27/2022 19:15:08 09/28/19 23 09/27/2022 COMPR EHENS ESTEFANIA METAB OLIC PANEL globulin 3.8 g/dL 2.6-4. 2 Not Available [facility] (Lab) [address] [place], [address], 09/27/2022 19:15:08 09/28/19 23 09/27/2022 COMPR EHENS ESTEFANIA METAB OLIC PANEL A/G ratio 1.0 ratio 1.0-2. 0 Not Available [facility] (Lab) [address] [place], [address], 09/27/2022 19:15:08 09/28/19 23 09/27/2022 LIPID PANEL cholesterol 145 mg/dL 140-19 9 NIH SANDI NSUS RECOM MENDA TION FOR DAYANARA STERO L: ADULT CHILD LOW RISK: <200 <170 BORDE RLINE : <200- 239 ----- HIGH RISK: >240 >200 Not Available [facility] (Lab) [address] [place], [address], 09/27/2022 19:15:11 09/28/1909/27/2022 LIPID PANEL triglyceride s 113 mg/dL 0-150 NIH SANDI NSUS REPOR T RECOM MENDA TION FOR TRIGL YCERI JIMI: ADULT CHILD LOW RISK: <150 ----- BODER LINE: 150-1 99 ----- HIGH RISK: >200 ----- Not Available [facility] (Lab) [address] [place], [address], 09/27/2022 19:15:11 09/28/1909/27/2022 LIPID PANEL HDL cholesterol 65 mg/dL 40- Not Available [facility] (Lab) [address] [place], [address], 09/27/2022 19:15:11 09/28/1909/27/2022 LIPID PANEL LDL cholesterol, calculated 57 mg/dL 0-130 NIH SANDI NSUS REPOR T RECOM MENDA TIONS FOR LDL: ADULT CHILD LOW RISK <130 <110 (OPTI MAL LDL) <100 ----- BORDE RLINE : 130-1 59 ----- HIGH RISK: >160 >130 A TRIGL YCERI DE RESUL T >400 INVAL IDATE S THE CALCU LATIO N FOR LDL FRACT IONAT ION - THE LDL RESUL T WILL NOT BE REPOR PADDY. Not Available [facility] (Lab) [address] [place], [address], 09/27/2022 19:15:11 09/28/19 23 09/27/2022 T4 FREE free T4 1.06 NG/dL 0.78-2 .19 Not Available [facility] (Lab) [address] [place], [address], 09/27/2022 19:17:26 09/28/19 23 09/27/2022 TSH thyroid-stim ulating hormone 3.250 uIU/m L 0.465- 4.680 Not Available [facility] (Lab) [address] [place], [address], 09/27/2022 19:34:59 09/28/19 23 09/27/2022 MICRO ALBUM N RNDM W/CRE AT RATIO ur creat 200.90 mg/dL REFER ENCE RANGE NOT ESTAB LISHE D FOR RANDO M URINE CREAT ININE Not Available [facility] (Lab) [address] [place], [address], 09/27/2022 20:10:17 09/28/19 23 09/27/2022 MICRO ALBUM N RNDM W/CRE AT RATIO microalbumin , urine 144.0 mg/L 0.0-16 .6 high Not Available [facility] (Lab) [address] [place], [address], 09/27/2022 20:10:17 09/28/19 23 09/27/2022 MICRO ALBUM N RNDM W/CRE AT RATIO microalbumin /creatinine ratio 72 mcg/m g 0-29 high THE AMERI CAN DIABE BRENDA ASSOC IATIO N DEFIN ES ABNOR MALIT IES IN ALBUM IN EXCRE TION FOLLO WS: CATEG ORY RESUL T (MCG/ MG CREAT ININE ) SKY L <30 MICRO ALBUM INURI A 30-29 9 CLINI YASMANY ALBUM INURI A > OR = 300 THE ADA RECOM MENDS THAT 2 OF 2 SPECI MENS COLLE CTED WITHI N A 3- TO 6-MON TH PERIO D BE ABNOR MAL BEFOR E CONSI RADHA G A PATIE NT TO HAVE CROSS ED ONE OF THESE DIAGN OSTIC THRES HOLDS . REFER ENCE: DIABE BRENDA CARE, VOL. 26: S94-S 96, JANUA RY 2002 Not Available [facility] (Lab) [address] [place], [address], 09/27/2022 20:10:17 09/28/19 23 09/27/2022 VITAM IN D 25-HY DROXY [id number] 27.8 NG/mL 30-100 low Vitam in D Statu s: Defic ient: <20 ng/mL Insuf ficie nt: 20-29 ng/mL Suffi cient : 30-10 0 ng/mL Not Available [facility] (Lab) [address] [place], [address], 09/27/2022 20:11:01 09/28/19 23 09/27/2022 HEMOG LOBIN A1C HA1C 5.9 % 4.0-6. 0 Diabe brenda Scree ester Crite clyde: <5.7% Consi stent with absen ce of diabe brenda 5.7-6 .4% Consi stent with incre ased risk for diabe brenda (pred iabet es) >OR=6 .5% Consi stent with diabe brenda REFER ENCE: Diabe brenda Care 2016, 39(Samson ppl.1 ):s13 -s22 Not Available [facility] (Lab) [address] [place], [address], 09/27/2022 20:17:56 09/28/19 23 09/27/2022 VITAM IN B12 (SARAH STEFANIE ) vb12 424 pg/mL 239-93 1 Not Available [facility] (Lab) [address] [place], [address], 09/27/2022 21:05:12 09/28/19 23 09/27/2022 FOLAT E, SERUM /PLAS MA folate 14.5 NG/mL 2.76-2 0.0 Not Available [facility] (Lab) [address] [place], [address], 09/27/2022 21:05:13 11/18/19 23 11/10/2022 compl ete PFT w/ post [facility] hodil ator samantha metry * No observ ation record ed. [email or web address] Not Available 11/23 11:31:45 11/18/19 23 11/10/2022 six min walk test w/ O2 titra tion* No observ ation record ed. [email or web address] Not Available 05/2022 18:36:39 11/25/1911/10/2022 PFT, compl ete No observ ation record ed. [email or web address] [address], [place], [address], 12/04/2022 10:28:30 12/13/19 23 12/12/2022 XR, chest , 2 view No observ ation record ed. [address], [place], [address], 12/13/2022 10:21:14 12/14/19 23 12/13/2022 US, echoc ardio gram No observ ation record ed. [address], [place], [address], 12/14/2022 11:49:41 12/15/19 23 12/13/2022 US, debbie brandon smargy, compl ete No observ ation record ed. [address], [place], [address], 12/14/2022 11:50:06 12/26/19 23 12/25/2022 US, echoc ardio gram No observ ation record ed. [address], [place], [address], 01/01/2023 16:55:53 Result Notes None recorded. Problems Name Problem SNOMED Code Status Onset Date Resolution Date Notes Provider Name and Address Organization Details Recorded Time Open wound of right lower leg 0456234140066 9101 Active 2021 Not Available [facility] 3 09:39:48 Chronic obstructiv e pulmonary disease 71653009 Active 2020 Not Available [facility] 3 09:39:48 Serum vitamin B12 below reference range 140533712 Active 2021 Not Available [facility] 3 09:39:48 Cobalamin deficiency 514532614 Active 2021 Not Available [facility] 3 09:39:48 Anemia 534681103 Active 2021 Not Available [facility] 3 09:39:48 Vitamin D deficiency 25855822 Active 2021 Not Available [facility] 3 09:39:48 Onychomyco sis 069278339 Active 2021 Not Available [facility] 3 09:39:48 Dyspnea on exertion 85915869 Active 2020 Not Available [facility] 3 09:39:48 Diabetes mellitus 40675634 Active 2020 Not Available [facility] 3 09:39:48 Posterior rhinorrhea 52744783 Active 2022 Not Available [facility] 3 09:39:48 Obstructiv e sleep apnea syndrome 24754634 Active 2021 Not Available [facility] 3 09:39:48 Paroxysmal atrial fibrillati on 727207002 Active 2022 Not Available [facility] 3 09:39:48 Congestive heart failure 10752784 Active 2022 Not Available [facility] 3 09:39:48 Morbid obesity 524175898 Active 2022 Not Available [facility] 3 09:39:48 Essential hypertensi on 97286903 Active 2022 Not Available [facility] 3 09:39:48 Testostero ne level below reference range 578118831 Active 2022 Not Available [facility] 3 09:39:48 Peripheral vascular disease 073952298 Active 2022 Not Available [facility] 3 09:39:48 Deficiency of vitamin D3 220198537 Active 2022 Not Available [facility] 3 09:39:48 Vitamin B12 deficiency (non anemic) 74051111 Active 2022 Not Available [facility] 3 09:39:48 Major depressive disorder 391781266 Active 2022 Not Available [facility] 3 09:39:48 Asthma 470131706 Active 2022 Not Available [facility] 3 09:39:48 Hyperlipid emia 82892826 Active 2022 Not Available [facility] 3 09:39:48 Iron deficiency anemia 66732232 Active 2022 Not Available [facility] 3 09:39:48 Dry skin dermatitis 125067660 Active 2022 Not Available [facility] 3 09:39:48 Proteinuri a 08465631 Active 2022 Not Available [facility] 3 09:39:48 Foot callus 428802950 Active 2022 Not Available [facility] 3 09:39:48 Polyneurop athy 85799208 Active 2022 Not Available [facility] 3 09:39:48 Type 2 diabetes mellitus 70903658 Active 2022 Not Available [facility] 3 09:39:48 Gastroesop hageal reflux disease 266290876 Active 2022 Not Available [facility] 3 09:39:48 Upper respirator y infection 18362443 Active 2022 Sadia adams [employer] [facility] [employer] [facility] 3 14:39:45 Chronic hypercapni c respirator y failure 239598761 Active 2022 Belinda Alonzo, TRAVEL CLERK- [address], [address] , [facility] [employer] [facility] 3 14:43:19 Open wound of toe of right foot 4611305726787 9100 Active 2022 Sadia adams [place] [facility] 3 13:45:40 Pain of left shoulder joint 7452253232289 9109 Active 2022 JEANIE Grissom-Zhanna [address] [place] [address], [facility] [address], [place], [address] , [place] [employer] 3 11:24:22 Neck pain 55363614 Active 2022 Sadia adams, [email or web address] 3 14:05:56 Problem Notes None recorded. Procedures Surgical History Date Name Laterality Status Provider Name and Address Organization Details Recorded Time Appendectomy completed Not Available [facility] 07/12/2022 00:43:19 Orthopedic Surgery completed Not Available [facility] 07/12/2022 00:43:19 Imaging Results Imaging Date Name Status LastModified by Organization Details LastModified Time 11/10/2022 complete PFT w/ post bronchodilator spirometry* completed Information not available 11/23/2022 11:31:45 11/10/2022 six min walk test w/ O2 titration* completed [email or web address] Information not available 12/12/2022 18:36:39 11/10/2022 PFT, complete completed [email or web address] [address], [address], 12/04/2022 10:28:30 12/12/2022 XR, chest, 2 view completed [address], [address], 12/13/2022 10:21:14 12/13/2022 US, echocardiogram completed [email or web address], [address], 12/14/2022 11:49:41 12/13/2022 US, duplex, venous, extremity, complete completed [email or web address], [address], 12/14/2022 11:50:06 12/25/2022 US, echocardiogram completed [email or web address], [place], [address], 01/01/2023 16:55:53 Procedure Notes None recorded. Medical Equipment None Reported. Allergies Allergen ID Allergen Name Allergen Category Reaction Reaction Severity Criticality Documentation Date Start Date Code Code System Note Provider Name and Address Organization Details Recorded Time 304 Product containin g penicilli n and antibioti c (product) medicatio n anaphylax is Not available Not available 07/12/2022 58627 05 SNOMED Not Available [facility] 3 00:50:58 [id number] penicilli n V Not available Not available Not available Not available 09/17/2023 7984 RxNorm Other react ions and sever ities : 'Adve rse react ion to subst ance - Sever e'. Hilda Morel, DIABETES SOLUTIONS SPECIALIST [address] [facility], [facility] [address], [place], [address] [place] [address] [facility] 4 08:06:02 Medications Name Sig Start Date Stop Date Status Note LastModified by Organization Details LastModified Time furosemid e 40 mg tablet TAKE 1 TABLET BY MOUTH EVERY DAY active Not Available Not Available No t Available atorvasta tin 40 mg tablet TAKE 1 TABLET BY MOUTH EVERY DAY active Not Available Not Available No t Available metformin 500 mg tablet TAKE 1 TABLET BY MOUTH EVERY DAY 01/11 completed Not Available Not Available Not Available prednison e 10 mg tablet 01/31 completed Not Available Not Available Not Available doxycycli ne hyclate 100 mg capsule TAKE 1 CAPSULE BY MOUTH TWICE A DAY FOR 7 DAYS active Not Available Not Available No t Available Acetamino phen Extra Strength 500 mg tablet TAKE 2 TABLETS (1,000 MG) BY ORAL ROUTE EVERY 6 HOURS NEEDED FOR MILD PAIN/FEV ER * NOT TO EXCEED 4000MGS IN 24 HOURS 12/16 completed Not Available Not Available Not Available albuterol sulfate 2.5 mg/3 mL (0.083 %) solution for nebulizat ion INHALE 1 VIAL PER NEBULIZE R EVERY 6 HOURS PRN active Not Available Not Available No t Available ammonium lactate 12 % lotion APPLY TOPICALL Y TWICE DAILY NEEDED active Not Available Not Available No t Available lisinopri l 20 mg-hydroc hlorothia zide 12.5 mg tablet 09/07 completed Not Available Not Available Not Available Lidocaine Viscous 2 % mucosal solution TAKE 15 MILLILIT ER BY ORAL ROUTE EVERY 6 HOURS AND SWISH AND SPIT OUT 09/07 completed Not Available Not Available Not Available diltiazem CD 240 mg capsule,e xtended release 24 hr TAKE 1 CAPSULE BY MOUTH EVERY DAY active Not Available Not Available No t Available ibuprofen 200 mg capsule TAKE 2 CAPSULES (400 MG) BY ORAL ROUTE EVERY 6 HOURS NEEDED FOR MILD PAIN 11/06 completed stopped in hosp Not Available Not Available Not Available lisinopri l 20 mg tablet Take 2 tablets every day by oral route. 07/29 completed Not Available Not Available Not Available prednison e 20 mg tablet TAKE 2 TABLETS BY MOUTH EVERY MORNING active Not Available Not Available No t Available sertralin e 100 mg tablet TAKE 1 TABLET BY MOUTH EVERY DAY active Not Available Not Available No t Available dofetilid e 250 mcg capsule TAKE 1 CAPSULE BY MOUTH TWICE A DAY active Not Available Not Available No t Available cyanocoba stefanie (vit B-12) 1,[address] 1 TABLET UNDER TONGUE AND DISSOLVE EVERY DAY 10/13 completed Verbally approved to change to sublingu al tablets per Jeniffer. Not Available Not Available Not Available hydrocodo ne 10 mg-acetam inophen 325 mg tablet 12/16 completed Not Available Not Available Not Available omeprazol e 40 mg capsule,d elayed release 40 MG BY MOUTH DAILY active Not Available Not Available No t Available aspirin 81 mg tablet,de layed release Take 1 tablet every day by oral route. 08/03 completed Not Available Not Available Not Available spironola ctone 25 mg tablet TAKE 1 TABLET BY MOUTH EVERY DAY active Not Available Not Available No t Available diltiazem 120 mg tablet Take 1 tablet 3 times a day by oral route. 10/13 completed Not Available Not Available Not Available magnesium oxide 400 mg (241.3 mg magnesium ) tablet TAKE 1 TABLET BY MOUTH TWICE A DAY active Not Available Not Available No t Available cyanocoba stefanie (vit B-12) 500 mcg tablet TAKE 1 TABLET BY MOUTH EVERY DAY active Not Available Not Available No t Available ferrous sulfate 325 mg (65 mg iron) tablet Take 1 tablet every day by oral route. active Not Available Not Available No t Available nitroglyc ruth 0.4 mg sublingua l tablet active Not Available Not Available Not Available gabapenti n 300 mg capsule TAKE 1 CAPSULE FOR 1 DAY THEN TAKE 1 CAPSULE TWICE A DAY FOR 1 DAY THEN 1 CAPSULE 3 TIMES A DAY 10/05 completed Pt states he is no longer taking this med as he didn't notice any differen ce with it. Not Available Not Available Not Available budesonid e 0.5 mg/2 mL suspensio n for nebulizat ion TAKE 0.5MG (2ML) INHALED EVERY 12 HOURS active Not Available Not Available No t Available lisinopri l 20 mg-hydroc hlorothia zide 25 mg tablet TAKE 1 TABLET BY MOUTH EVERY DAY active Not Available Not Available No t Available folic acid 1 mg tablet TAKE 1 TABLET BY MOUTH EVERY DAY active Not Available Not Available No t Available hydrocort isone 2.5 % topical cream APPLY A THIN LAYER TO THE RECTUM BY TOPICAL ROUTE 2 TIMES PER DAY PRN active Not Available Not Available No t Available cyanocoba stefanie (vit B-12) 1,000 mcg sublingua l tablet Place 1 tablet every day by sublingu al route. 08/03 completed Not Available Not Available Not Available mupirocin 2 % topical ointment APPLY TOPICALL Y TO THE WOUND DAILY OR EVERY OTHER DAY 06/06 completed Not Available Not Available Not Available digoxin 125 mcg (0.125 mg) tablet TAKE 1 TABLET BY MOUTH EVERY DAY active Not Available Not Available No t Available ergocalci ferol (vitamin D2) 1,250 mcg (50,000 unit) capsule TAKE 1 CAPSULE EVERY WEEK BY ORAL ROUTE. 2022 active Not Available Not Available Not Avai lable azelastin e 137 mcg (0.1 %) nasal spray SPRAY 2 SPRAYS BY INTRANAS AL ROUTE TWICE A DAY DIRECTED FOR 30 DAYS active Not Available Not Available No t Available testoster one cypionate 200 mg/mL intramusc ular oil INJECT 3ML INTRAMUS CULARLY ONCE MONTHLY active Not Available Not Available No t Available albuterol sulfate HFA 90 mcg/actua tion aerosol inhaler TAKE 2 PUFFS BY MOUTH EVERY 4 HOURS NEEDED active Not Available Not Available No t Available BD Luer-Marko Syringe 3 mL 18 x 1 1/2 USE TO DRAW UP TESTOSTE AYAN ONCE MONTLY active Not Available Not Available No t Available lisinopri l 40 mg tablet TAKE 1 TABLET BY MOUTH EVERY DAY active Not Available Not Available No t Available amitripty line 100 mg tablet TAKE 1 TABLET BY MOUTH EVERYDAY AT BEDTIME 2022 active Not Available Not Available Not Avai lable doxycycli ne hyclate 100 mg tablet 01/31 completed Not Available Not Available Not Available ipratropi um bromide 0.02 % solution for inhalatio n INHALE 1 VIAL PER NEBULIZE R EVERY 6 HOURS active Not Available Not Available No t Available rosuvasta tin 20 mg tablet TAKE 1 TABLET BY MOUTH EVERY DAY active Not Available Not Available No t Available rosuvasta tin 40 mg tablet TAKE 1 TABLET BY MOUTH EVERY DAY active Not Available Not Available No t Available Klor-Con M20 mEq tablet,ex tended release TAKE 1 TABLET BY MOUTH EVERY DAY active Not Available Not Available No t Available Flovent HFA 110 mcg/actua tion aerosol inhaler TAKE 1 PUFF BY MOUTH TWICE A DAY active Not Available Not Available No t Available Boostrix Tdap 2.5 Lf unit-8 mcg-5 Lf/0.5 mL intramusc ular syringe 01/29 completed Not Available Not Available Not Available magnesium 07/29 completed Not Available Not Available Not Available Vitamin D3 08/03 completed Not Available Not Available Not Available multivita min 1 Tablet Daily 05/03 completed Not Available Not Available Not Available Alavert 10/28 completed Not Available Not Available Not Available rosuvasta tin 07/29 completed Not Available Not Available Not Available Symbicort 160 mcg-4.5 mcg/actua tion HFA aerosol inhaler TAKE 2 PUFFS BY MOUTH TWICE A DAY 03/08 completed Not Available Not Available Not Available BD Regular Bevel Lynn 21 gauge x 1 1/2 USE TO INJECT ONCE MONTHLY active Not Available Not Available No t Available Aloe Ethel Antifunga l (miconazo le) 2 % topical ointment APPLY TO AFFECTED AREA EVERY 12 HOURS active Not Available Not Available No t Available Xarelto 07/29 completed Not Available Not Available Not Available Xarelto 20 mg tablet TAKE 1 TABLET BY MOUTH WITH EVENING MEAL DAILY active Not Available Not Available No t Available Silver Gel topical Apply to wound as directed 01/29 completed Managed by Home Health Not Available Not Available Not Available Anoro Ellipta 62.5 mcg-25 mcg/actua tion powder for inhalatio n One puff daily 01/11 completed Not Available Not Available Not Available mecobalam in (vitamin B12) 1,000 mcg disintegr ating tablet,samson blingual DISSOLVE 1 TABLET BY MOUTH UNDER TONGUE DAILY 10/13 completed Not Available Not Available Not Available Fiber Gummies 2 gram chewable tablet Take 2 tablets every day by oral route. 11/06 completed Not Available Not Available Not Available Bevespi Aerospher e 9 mcg-4.8 mcg HFA aerosol inhaler Inhale 2 puffs twice a day by inhalati on route as directed for 90 days. active Not Available Not Available No t Available Trelegy Ellipta 100 mcg-62.5 mcg-25 mcg powder for inhalatio n 11/02 completed Not Available Not Available Not Available Trelegy Ellipta 06/01 completed Not Available Not Available Not Available Shingrix (PF) 50 mcg/0.5 mL intramusc ular suspensio n, kit PHARMACY ADMINIST ERED 10/20 completed Not Available Not Available Not Available omeprazol e 20 mg delayed release,d isintegra ting tablet Take 2 tablets by oral route. 07/29 completed Not Available Not Available Not Available Wixela Inhub 500 mcg-50 mcg/dose powder for inhalatio n TAKE 1 PUFF BY MOUTH TWICE A DAY active Not Available Not Available No t Available Wixela Inhub 07/29 completed Not Available Not Available Not Available Tiadylt ER 180 mg capsule,e xtended release TAKE 1 CAPSULE BY MOUTH EVERY DAY 05/03 completed Not Available Not Available Not Available Flucelvax Quad (PF) 60 mcg (15 mcg x 4)/0.5 mL IM syringe 03/08 completed Not Available Not Available Not Available Vitals Date Recorded Body height Oxygen saturation Oxygen saturation in Arterial blood by Pulse oximetry Heart rate Body temperature Systolic blood pressure Diastolic blood pressure Provider Name and Address Organization Details Last Updated DateTime 3 180.34 cm 97 % 97 % 80 /min 97.8 [degF] 136 mm[Hg] 80 mm[Hg] Not Available [facility] 3 00:45:03 Date Recorded Body height Oxygen saturation Oxygen saturation in Arterial blood by Pulse oximetry Heart rate Body temperature Systolic blood pressure Diastolic blood pressure Provider Name and Address Organization Details Last Updated DateTime 3 180.34 cm 95 % 95 % 83 /min 96.3 [degF] 122 mm[Hg] 74 mm[Hg] Not Available [facility] 3 00:45:03 Date Recorded Body height Body temperature Heart rate Oxygen saturation Oxygen saturation in Arterial blood by Pulse oximetry Inhaled oxygen flow rate Systolic blood pressure Diastolic blood pressure Provider Name and Address Organization Details Last Updated DateTime 3 180.34 cm 98.4 [degF] 76 /min 98 % 98 % 5 L/min 134 mm[Hg] 74 mm[Hg] Nilda Corbett MA [facility] 3 14:26:19 Date Recorded Body height Body temperature Heart rate Oxygen saturation Oxygen saturation in Arterial blood by Pulse oximetry Inhaled oxygen flow rate Provider Name and Address Organization Details Last Updated DateTime 3 180.34 cm 98.9 [degF] 80 /min 94 % 94 % 4 L/min Anaid Flynn RN [facility] 3 14:13:14 Date Recorded Body height Provider Name an d Address Organization Details Last Updated DateTime 01/31/2023 180.34 cm Nilda Corbett MA [facility] 01/31/2023 10:43:04 Social History Question Answer Notes LastModified by Organizat ion Details LastModified Time Tobacco Smoking Status Never Smoker Not Available [facility] 07/12/2022 00:42:46 Do You Have An Advance Directive? Yes Living Will [id number] Information not available 07/12/2022 What Is Your Level Of Alcohol Consumption? None MIGRATION.[id number] Information not available 07/12/2022 What Is Your Level Of Caffeine Consumption? Moderate MIGRATION.[id number] Information not available 07/12/2022 How Much Tobacco Do You Chew? None MIGRATION.69303 [id number] Information not available 07/12/2022 In The 14 Days Before Symptom Onset, Have You Had Close Contact With A Laboratory-confi rmed COVID-19 While That Case Was Ill? No [id number].79107 [id number] Information not available 07/12/2022 In The 14 Days Before Symptom Onset, Have You Had Close Contact With A Person Who Is Under Investigation For COVID-19 While That Person Was Ill? No [id number].[id number] Information not available 07/12/2022 What Type Of Diet Are You Following? CARBOHYDRATE Low Carb MIGRATION.85310 [id number] Information not available 07/12/2022 Which Illicit Or Recreational Drugs Have You Used? None [id number].95611 [id number] Information not available 07/12/2022 Do You Or Have You Ever Used E-cigarettes Or Vape? Never Used Electronic Cigarettes MIGRATION.28426 [id number] Information not available 07/12/2022 What Is The Highest Grade Or Level Of School You Have Completed Or The Highest Degree You Have Received? [id number] MIGRATION.42845 [id number] Information not available 07/12/2022 What Is Your Occupation? Disabled MIGRATION.89221 [id number] Information not available 07/12/2022 Have There Been Any Changes To Your Family Or Social Situation? Yes Break Up MIGRATION.59086 [id number] Information not available 07/12/2022 What Is The Fluoride Status Of Your Home? Unknown MIGRATION.19423 [id number] Information not available 07/12/2022 Are There Any Guns Present In Your Home? No MIGRATION.09346 [id number] Information not available 07/12/2022 Do You Use Insect Repellent Routinely? No MIGRATION.44987 [id number] Information not available 07/12/2022 Where Do You Live? [place] MIGRATION.87095 63100 Information not available 07/12/2022 What Was The Date Of Your Most Recent Tobacco Screening? 01/31/2023 Information not available 01/31/2023 Do You Have Any Pets? Yes MIGRATION.60115 [id number] Information not available 07/12/2022 What Is Your Relationship Status? Single MIGRATION.97959 97601 Information not available 07/12/2022 Do You Use Your Seat Belt Or Car Seat Routinely? Yes MIGRATION.15474 53714 Information not available 07/12/2022 Do You Have Smoke And Carbon Monoxide Detectors In Your Home? Yes MIGRATION.67852 71981 Information not available 07/12/2022 Are You Passively Exposed To Smoke? Yes MIGRATION.62991 54221 Information not available 07/12/2022 Do You Or Have You Ever Used Smokeless Tobacco? Never Used Smokeless Tobacco MIGRATION.63157 12044 Information not available 07/12/2022 Are There Any Smokers In Your House? No MIGRATION.23160 69912 Information not available 07/12/2022 How Much Tobacco Do You Smoke? No MIGRATION.00357 00435 Information not available 07/12/2022 Do You Feel Stressed (tense, Restless, Nervous, Or Anxious, Or Unable To Sleep At Night)? [id number] MIGRATION.43816 09153 Information not available 07/12/2022 Do You Use Any Illicit Or Recreational Drugs? No MIGRATION.29819 79106 Information not available 07/12/2022 Do You Use Sunscreen Routinely? No MIGRATION.36039 68413 Information not available 07/12/2022 How Many Years Have You Smoked Tobacco? 0 MIGRATION.95479 81055 Information not available 07/12/2022 Have You Recently Traveled Abroad? No MIGRATION.91478 75619 Information not available 07/12/2022 Sex: Male Functional Status Question Answer Note LastModified by Organizat ion Details LastModified Time What is your exercise level? Occasional [id number] Information not available 07/12/2022 Mental Status None recorded. Family History Relationship Description Onset Age of this Age Resolved Age Notes LastModified by Organization Details LastModified Time Mother Malignant tumor of colon deceas ed [id number] Not available 07/12/2022 00:43:23 Mother Diabetes mellitus [id number] Not available 07/12/2022 00:43:23 Unspecified Relation Family history of Hypertension both sides [id number] Not available 07/12/2022 00:43:23 Medical History Condition Response CHEST XRAY N NERVE DISEASE Y BLINDNESS N BLADDER PROBLEMS N OTHER # 1 Y POLIO N LUNG DISEASE/DISORDER N RADIATION / CHEMOTHERAPY N COPD N Other # 2 N BLOOD DISEASES N SURGERY N EAR OR HEARING PROBLEMS N BOWEL PROBLEMS N DEPRESSION (INCLUDING POST ) Y FEMALE PROBLEMS / INFECTIONS N STROKE/TIA N CHEST CT N ULCERS N RENAL INSUFFICIENCY N BENIGN PROSTATIC HYPERPLASIA N TB SKIN TEST N MYOCARDIAL INFARCTION N OBESITY N GERD/NAUSEA Y EXCESSIVE PERSPIRATION N ANEURYSM N URINARY/BLADDER/KIDNEY PROBLEMS N INPATIENT PSYCH CARE N CORONARY ARTERY DISEASE (CAD) N USE OF BLOOD THINNERS N SKIN PROBLEMS N EMPHYSEMA N SHORTNESS OF BREATH N GASTROINTESTINAL DISORDER N PARATHYROID DISEASE N PERIPHERAL VASCULAR DISEASE N GASTROINTESTINAL BLEEDING N BLOOD CLOTS N ASTHMA Y CONCUSSION OR SPINAL TRAUMA N VARICOSITIES N GI PROBLEMS N CHF N Low Testosterone N AIDS/HIV N LIVER DISEASE N HYPERTENSION Y ANXIETY DISORDER N BLOOD TRANSFUSION N BRONCHITIS N TUBERCULOSIS N GLAUCOMA N FOOT PROBLEM N SLEEP APNEA Y ALLERGIES/HAYFEVER N INFECTIOUS DISEASE N HEART ARRHYTHMIA N PROSTATE N INSOMNIA N HIGH CHOLESTEROL / HYPERLIPIDEMIA N HYPERTHYROIDISM N NEUROLOGICAL PROBLEMS N EDEMA N HYPOTHYROIDISM N CAROTID BLOCKAGE N BACK / NECK PROBLEMS N ATHEROSCLEROSIS N BREAST PROBLEMS N HERNIATED DISC N DIALYSIS N FIBROMYALGIA N OSTEOPOROSIS N ARTHRITIS N DIABETES, TYPE N SEASONAL ALLERGIES N HEARTBURN / REFLUX Y PLEURISY N ADD/ADHD N Bronchoscopy N HEPATITIS / LIVER DISEASE N PULMONARY DISEASE N GOUT N SLEEP DISORDER N ALZHEIMER'S DISEASE N FATIGUE N DEMENTIA N HERPES N RETINOPATHY N SEIZURES/EPILEPSY N HEADACHES/MIGRAINES N SLEEP STUDY N VASCULAR DISEASE N DIZZINESS N HEAD TRAUMA OR INJURY N HEART DISEASE/HEART PROBLEMS N KIDNEY DISEASE N MULTIPLE SCLEROSIS N PULMONARY FUNCTION TEST N CANCER: SPECIFY N CARDIAC ARRHYTHMIA Y ANESTHESIA COMPLICATIONS N PNEUMONIA N ATRIAL FIBRILLATION N PULMONARY EMBOLISM N AUTOIMMUNE DISEASE N Immunizations Vaccine Type Date Status Note Provider Nam e and Address Organization Details Recorded Time Influenza, MDCK, quadrivalent, PF 0 completed Hilda Morel APRN [address], [place] [address], [place], [address], [employer] [facility] 09/17/2023 08:05:42 COVID-19, mRNA, LNP-S, PF, 100 mcg/0.5mL dose or 50 mcg/0.25mL dose 1 completed Hilda Morel APRN [address], [address], [place], [address], [employer] [facility] 09/17/2023 08:05:42 COVID-19, mRNA, LNP-S, PF, 100 mcg/0.5mL dose or 50 mcg/0.25mL dose 1 completed Hilda Morel APRN [address], [address], [place], [address], [facility] 09/17/2023 08:05:42 COVID-19, mRNA, LNP-S, bivalent, PF, 30 mcg/0.3 mL dose [address], [place], [address], [facility] 09/17/2023 08:05:42 influenza, unspecified formulation [address], [place], [address], [facility] 09/17/2023 08:05:43 Tdap 7 [address], [place], [address], [facility] 09/17/2023 08:05:43 Tdap 0 [address], [place], [address], [facility] 09/17/2023 08:05:43 tetanus toxoid, adsorbed [address], [place], [address], [facility] 09/17/2023 08:05:43 Influenza, split virus, quadrivalent, PF [address], [place], [address], [facility] 09/17/2023 08:05:43 Influenza, split virus, quadrivalent, PF [address], [place], [address], [facility] 09/17/2023 08:05:43 Influenza, split virus, quadrivalent, PF [address], [place], [address], [place] [facility] 09/17/2023 08:05:43 Influenza, split virus, quadrivalent, PF 2 completed Hilda Morel APRN [address], [address], [place], [address], [facility] [facility] 09/17/2023 08:05:43 influenza, unspecified formulation [address], [place], [address], [facility] [facility] 09/17/2023 08:05:43 COVID-19, mRNA, LNP-S, PF, 30 mcg/0.3 mL dose 1 [address], [place], [address], [facility] 09/17/2023 08:05:42 Influenza, split virus, quadrivalent, preservative 0 [address], [place], [address], [facility] [employer] [facility] 09/17/2023 08:05:42 tetanus toxoid, unspecified formulation 1 completed Not Available [facility] 10/19/2022 09:39:50 COVID-19, mRNA, LNP-S, PF, 100 mcg/0.5mL dose or 50 mcg/0.25mL dose 1 [address], [place], [address], [facility] [facility] 09/17/2023 08:05:42 zoster recombinant 0 completed [address], [place], [address], [facility] [facility] 09/17/2023 08:05:42 Influenza, split virus, quadrivalent, preservative [address], [place], [address], [facility] [employer] [facility] 09/17/2023 08:05:42 zoster recombinant 0 completed Hilda Morel, DIABETES SOLUTIONS SPECIALIST [address], [place], [address], [facility] [employer] [facility] 09/17/2023 08:05:42 Influenza, split virus, quadrivalent, PF 1 completed Not Available [facility] 10/19/2022 09:39:50 pneumococcal polysaccharide PPV23 0 completed Not Available [facility] 10/19/2022 09:39:50 Past Encounters Encounter ID Performer Location Encounter Start Date Encounter Closed Date Diagnosis/Indication Diagnosis SNOMED-CT Code Diagnosis ICD10 Code Diagnosis Note [id number] [facility] Internal Med [facility] [address], [facility] [address] [place] [address] 07/29/2020 00:00:00 07/29/2020 12:49:19 [id number] [facility] [place] [address] [facility] [place] [address] 10/13/2020 00:00:00 11/11/2020 17:16:57 [id number] [facility] Pulmon[place] gy Ione [address] [place] [address] 10/20/2020 00:00:00 10/20/2020 14:00:37 [id number] [facility] Pulmon[place] gy Ione [address] [place] [address] 11/19/2020 00:00:00 11/19/2020 14:47:24 [id number] [facility] Internal Med [facility] [address] , [facility] [address] [place] [address] 01/31/2021 00:00:00 01/31/2021 14:10:02 [id number] [facility] Pulmon[place] gy Ione [address] [place] [address] 02/23/2021 00:00:00 02/23/2021 15:04:13 [id number] [facility] Internal Med [place] [address] [facility] , [place] [address] 04/25/2021 00:00:00 04/25/2021 13:11:03 [id number] [facility] Pulmonolo gy Ione [address] [place] [address] 06/01/2021 00:00:00 06/01/2021 16:22:35 [id number] [facility] Internal [facility] [place] [address] [place] [address] 08/03/2021 00:00:00 08/03/2021 13:19:02 [id number] [facility] Pulmonolo gy Ione [address] [place] [address] 08/03/2021 00:00:00 08/03/2021 11:45:55 [id number] [facility] Podiatry [place] [address] [place] [address] 08/22/2021 00:00:00 08/23/2021 11:01:51 [id number] [facility] Pulmonolo gy [place] [address] [place] [address] 2021 00:00:00 2021 13:52:34 [id number] [facility] Internal Med [facility] 15 2043 Lulu Garrett, [address] [address] 11/17/2021 00:00:00 11/17/2021 11:06:30 [id number] [facility] Internal Med [place] [address] [facility] [address] , [place] [address] 01/11/2022 00:00:00 01/11/2022 13:46:47 [id number] [facility] Internal Med [facility] 15 2043 [place] , [address] [address] 06/06/2022 00:00:00 06/06/2022 16:36:20 [id number] [facility] Pulmonolo gy [place] [address] [place] [address] 06/20/2022 00:00:00 06/20/2022 11:54:13 [id number] JEANIE Grissom-Zhanna [facility] Internal Med [place] [address] [facility] [address] [place] [address] 09/27/2022 14:06:36 09/27/2022 14:50:02 Paroxysmal atrial fibrillation 723134522 I48.0 on cardizem, xarelto, digoxin, follows cardiology - Dr. Fang referral to Dr. Zelaya as requested Congestive heart failure 17036616 I50.9 as above Morbid obesity 780356888 E66.01 he has decided against bariatric surgeryHe is considerin g surgery again, he wants to do some research as to where he would like to be referred and he will call us when he is ready for a referralco ntinue diet/exerc ise efforts Polyneuropathy 96124449 G62.9 follows neurology- ESTEBAN Rizvi at [facility] t a new neurology referral per his request-Dinh Winter with [facility] Essential hypertension 75035373 I10 on lisinopril , lasix, follows cardiology as above Testostero ne level below reference range 912765975 R89.1 on testostero ne, follows urology- Dr. Dunham Obstructiv e sleep apnea syndrome 78086609 G47.33 on CPAP- follows pulm for compliance - Belinda Alonzo Peripheral vascular disease 527928428 I73.9 follows cardiology as aboveappt with podiatry as above Type 2 roro betes mellitus 81731463 E11.9 now off metformin, working on lifestyle measuresfo sandrine podiatry for foot care Vitamin D deficiency 347 14379 E55.9 on supplement Vitamin B1 2 deficiency (non anemic) 94286600 E53.8 on supplement Gastroesop hageal reflux disease 575517604 K21.9 on omeprazole Major depr essive disorder 149990823 F32.9 on sertraline call office if any change in mood or behaviorde clines psychiatry referral at this time Asthma 989538473 J45.90 9 on Trelegy, follows pulm as above, on home O2 of 5L with activity and at night Hyperlipidemia 78158482 E78.5 on rosuvastat in Iron defic iency anemia 17996294 D50.9 on supplement now following hematology - Dr. Carrillo- has his 1st appointmen t later this month Dry skin dermatitis 2600 73504 L85.3 on ammonium lactate lotion to BLE Proteinuria 55833136 R80 .9 follows nephrology - Dr. Santana/George ack Foot callus 124325273 L8 4 get appt with podiatry as above [id number] Belinda Alonzo, TRAVEL CLERK-[facility] Pulmonolo gy Ione [address] [place] [address] 12/19/2022 14:07:55 12/19/2022 15:08:45 Chronic hypercapnic respiratory failure 106604483 J96.12 PFT 10/2022 with FEV1 31%CO2 inpatient 12/15 per ABG was 55.8 on BIPAP 20/7 WITH fio2 35%Mr Hancock needs a ventilator due to chronic respirator y failure due to COPD and will need it nocturnall y and during the daytime PRNBIPAP has been considered and ruled out due to the severity of the patient's diseaseChe ck ABG in one month on 3 liters at rest Chronic ob structive pulmonary disease 08583379 J44.9 PFT 03/2020 through [facility] with FEV1 40%Repeat 10/2022 with FEV1 31% - in chartConti nue Bevespi and FloventHe is aware to rinse and spitDiscus sed reportable signs and symptomsRT C in 3-4 weeks, PRN for concernsOr jade for POC with strap today Dependence on supplemental oxygen 1110693400 07 Z99.81 He has good use and benefit Obstructiv e sleep apnea syndrome 93830129 G47.33 NIV order as above [id number] Jeniffer Veras, JEANIE-C [facility] Internal Med [place] [address] [place] [address] 01/31/2023 10:36:22 01/31/2023 11:36:45 Paroxysmal atrial fibrillation 580247166 I48.0 on cardizem, xarelto, digoxin, follows cardiology - Dr. Zelaya Congestive heart failure 22482138 I50.9 as aboveon lasix and spironolac tone from cardiology Morbid obesity 954243043 E66.01 he has decided against bariatric surgeryHe is considerin g surgery again, he wants to do some research as to where he would like to be referred and he will call us when he is ready for a referralco ntinue diet/exerc ise efforts Polyneuropathy 97825932 G62.9 follows neurology- -Lizzie Winter with [facility] Essential hypertension 15083719 I10 on lisinopril , lasix, follows cardiology as above Testostero ne level below reference range 522543559 R89.1 on testostero ne, follows urology- Dr. Dunham Obstructiv e sleep apnea syndrome 75790277 G47.33 on CPAP- follows pul for compliance - Belinda Alonzo Peripheral vascular disease 716030539 I73.9 follows cardiology as aboveappt with podiatry as above Type 2 roro betes mellitus 04370066 E11.9 now off metformin, working on lifestyle measuresfo sandrine podiatry for foot care Vitamin D deficiency 347 13391 E55.9 on supplement Vitamin B1 2 deficiency (non anemic) 46077255 E53.8 on supplement Gastroesop hageal reflux disease 634352540 K21.9 on omeprazole Major depr essive disorder 047576443 F32.9 on sertraline call office if any change in mood or behaviorde clines psychiatry referral at this time Asthma 295738580 J45.90 9 on Trelegy, follows pulm as above, on home O2 of 5L with activity and at night Hyperlipidemia 91824192 E78.5 on rosuvastat in Iron defic iency anemia 40930614 D50.9 on supplement now following hematology - Dr. Carrillo Dry skin dermatitis 2600 02130 L85.3 on ammonium lactate lotion to BLE Proteinuria 89999637 R80 .9 follows nephrology - Dr. Santana/George aclupe Foot callus 863956417 L8 4 get appt with podiatry as above Pain of le ft shoulder joint 2492932982 1947473 M25.512 He will call us with the name of the Ortho he wants to see, he does not want a referral at this time, wants to find someone in [place] or [facility] Concerns Section Related Observation LastModified by Organization Detai ls LastModified Time None Recorded Concern Status LastModified by Organization Details LastModified Time None Recorded Advance Directives Directive Y: living will Payers Encounter Date Sequence Insurance Name Policy Number Policy Marroquin Covered Member ID Marroquin Member ID Guarantor Name 09/27/2022 1 [facility] [place] - D[employer] OPT[employer] (MEDICARE - MEDICAID REPLACEMENT HMO) [id number] Justo Hancock Jr [id number] Justo Hancock 12/19/2022 1 [facility] [place] [employer] (MEDICARE - MEDICAID REPLACEMENT HMO) [id number] Justo Hancock Jr [id number] Justo Hancock 01/31/2023 1 [facility] [place] [facility] [employer] (MEDICARE - MEDICAID REPLACEMENT HMO) [id number] Justo Hancock Jr [id number] Justo Hancock Notes Date Note Type Note Provider Name and Address Organization Details Recorded Time 09/27/2022 text/html Justo presents today for follow-up. He reports he is now getting 16 hours of help in the home which was set up for him by Medicare Medicaid. He also got a Life Alert system. He also reports that he is getting a meal delivery service from them as well. He is hoping that this will help him with portion control. He is still thinking about getting bariatric surgery. He wants to do some more research about where he might like to go for this. He tells me he will call me if he decides he wants referral. He is requesting to transfer his cardiology care and his neurology care to closer to his home. He is wanting a referral to Dr. Zelaya for cardiology and Lizzie Best in [place] for neurology. He follows up again with pulmonology in about 3 weeks. He reports he has been maintained on 5 L of oxygen at rest. He has not had any worsening shortness of breath. His mood is stable on his current dose of mood meds. He denies any SI or HI today. He continues to follow Urology for the decreased testosterone. He has his 1st appointment with Hematology later this month. He is due for lab work today. Jeniffer Veras, TRAVEL CLERK-C [address] [facility], [facility] [address], [place], [address], [place] - [facility] [employer] 09/27/2022 15:25:53 12/19/2022 text/html Mr Hancock present s today to follow up on recent hospitalization for acute on chronic respiratory failure with hypercapnia, COPD, FENG, testing, oxygen dependence, cough and dyspnea.He was discharged last Fridaystill on antibiotics and steroids.Using oxygen compliantly at 3 liters at rest and 5 liters with activity5 liters at nightRequesting a POC with strap.Also requesting DME come clean his stationary concerntratorHas broken his PAP mask several times and is having difficulty using this. Requesting the :mchine they used in the hospital'Continues to report unsteady gait R/T neuropathy.Compliant with Bevespi and FloventRescue use usually several times per week, good benefit.He can not dress or bathe without dyspnea, this is unchangedDenies chest pain, unintentional weight loss.Cough is intermittently persistent, no hemoptysis.Tells me that he had a lot of fluid taken off when he was in the hospital but he still is unable to lie flat Belinda Alonzo, [facility]- [address] [facility], [facility] [address], [place], [address], [facility] [employer] 12/19/2022 15:55:31 01/31/2023 text/html This is a telehe alth visit conducted via telephone audio only. Patient agrees to telehealth visit. Justo presents today via telephone audio for follow-up. He was unable to make it into the office as he was unable to get a ride. He was hospitalized at [facility] beginning of December for acute on chronic respiratory failure and CHF. He was placed on BiPAP. He had never had to be intubated. He is now on home BiPAP. He did get set up with his new podiatrist orthopedic, Dr. Zelaya. He reports they started him on spironolactone which has been helping with his leg swelling. He did see the neurologist. They did another MRI and per patient it was stable since his last MRI. He also is now following Hematology. His mood is stable on his current dose of sertraline. He denies any SI or HI today. We had to discontinue his amitriptyline as it was interacting with his dofetilide. He is tolerating this without issue and has had no problems with discontinuing it. He reports today he has had some left shoulder pain. Denies known injury. He would like an ortho referral but he wants to look around to see if he can find someone closer. He will call us back with the name of the person he wants to see. Jeniffer Veras, JEANIE-Zhanna [address] [address], [place], [address], [place] - [facility] [employer] [facility] 01/31/2023 14:04:00
== END 2024-06-09 12:31 | disposition home or self-care (01) ==
LOC: CHSLAB 12:32
PROVIDERS: PCP Nurse Practitioner Family; Visit Provider Nurse Practitioner Family
DX: G47.33 Obstructive sleep apnea (adult) (pediatric) (principal); Z99.89 Dependence on other enabling machines and devices
CPT/HCPCS: 36600; 82805

== ENCOUNTER 2024-09-16 09:39 | Outpatient (CLI) | payer MEDICARE, MEDICAID, SELFPAY ==
--- NOTE | 2024-09-16 10:07 | ECG_ITS ---
Test Date: 2024-09-16 10:19:01 Measurements Intervals [place] Rate: 56 P: 60 PA: 245 QRS: 56 QRSD: 104 T: 27 QT: 440 QTc: 425 Interpretive Statements SINUS BRADYCARDIA WITH FIRST DEGREE AV BLOCK LOW QRS VOLTAGE IN PRECORDIAL LEADS [QRS DEFLECTION < 1.0 mV IN CHEST LEADS] NONSPECIFIC ST AND T-WAVE ABNORMALITY No previous ECG available for comparison Electronically Signed On 09-16-2024 14:14:54 CDT by Kendra Sue M.D.
[2024-09-16 10:10] LABS: Hematocrit 34.8 % (40.0-54.0); Hemoglobin 11.1 g/dL (14.0-18.0); Mean Corpuscular HGB Conc 31.9 g/dL (32-36); Mean Corpuscular Hemoglobin 28.2 pg (27.0-31.0); Mean Corpuscular Volume 88.5 fL (78.0-102.0); Mean Platelet Volume 10.4 fl (8.7-11.0); Platelet Count Result 232 K/mm3 (150-420); Red Blood Count 3.93 M/mm3 (4.70-6.10); Red Cell Distribution Width 14.5 % (11.6-14.4); White Blood Count 9.9 K/mm3 (4.8-10.8)
--- OUTSIDE RECORDS SUMMARY | 2024-09-16 10:21 | XMS_ITS | CONTINUITY OF CARE DOCUMENT ---
Author Name grantkurtis, grantkurtis Address Unknown Organization [facility] Address [address] [place] [address] Phone [phone] Care Team Providers Care Senior Ui Designer Name Role Phone Sadi RICKS, Woo Unavailable HOPALFONSO RUSS Unavailable [phone] HOPALFONSO RSUS Unavailable [phone] PROBLEMS Condition Status Date Provider Notes Hyperlipidemia;with high crp active Shravan Mahmood MD Microalbuminuria active Shravan Mahmood MD Neuropathy active Marija Mccormack Abnormal stress nuclear scan - small apical defect active Woo Avitia MD HTN essential active Woo Avitia MD Afib active Woo Avitia MD Shortness of breath active Ganga urrutia MD COPD - on O2 active Woo Avitia MD [place] active Woo Avitia MD Chest pain completed - Woo Avitia MD PREDIABETES; active Shravan Mahmood MD Anemia, iron deficiency and folate def active Shravan Mahmood MD foalte ok Elevated glucose completed - Shravan Mahmood MD Exposure to SARS-associated coronavirus;neg igg active Shravan Mahmood MD Leg edema active Jeremías Faye Diastolic CHF active Woo Avitia MD FENG - On CPAP active Woo Avitia MD Asthma active Woo Avitia MD Morbid obesity active Woo Avitia MD ENCOUNTERS Date Type Provider Location Encounter Diag nosis - In-person encounter Office Visit Woo Avitia MD [facility] - In-person encounter Office Visit Woo Avitia MD [facility] Chest painCOPD - on O2 - In-person encounter Office Visit Woo Avitia MD [facility] VT - In-person encounter Office Visit Ganga Zavala MD [facility] Shortness of breath - In-person encounter Office Visit Shravan Mahmood MD [facility] Elevated glucoseAnemia, iron deficiency and folate defPREDIABETES; - In-person encounter Office Visit Woo Avitia MD [facility] FENG - On CPAP - In-person encounter Office Visit Alexei Kurtz MD [facility] AfibLeg edemaExposure to SARS-associated coronavirus;neg igg - In-person encounter Office Visit Woo Avitia MD [facility] HTN essentialMorbid obesityAsthmaOSA - On CPAPDiastolic CHF VITAL SIGNS Date Observation Value Provider Body Mass Index (Ratio) 53.83 kg/m2 Olegario b Nacht blood pressure, diastolic 73 mm[Hg] Li nkLogic blood pressure, systolic 151 mm[Hg] Allyson kLogic Inhaled O2 5 L/min Lucretia Andrea blood pressure, diastolic 73 mm[Hg] Ca therine Dunlap blood pressure, systolic 151 mm[Hg] Cat herine Dunlap oxygen saturation, oximetry 98 % Lucretia Dunlap respiratory rate E&M 16 /min Catheri ne Dunlap pulse rate 78 /min Lucretia Andrea weight E&M 386 [lb_av] Lucretia Andrea blood pressure, cuff size large Ca therine Dunlap height E&M 71 [in_i] Lucretia Dunlap Body Mass Index (Ratio) 47.14 kg/m2 Teresa [...] lder weight E&M 387 [lb_av] Meghana Gruenenfe [facility] height E&M 71 [in_i] Meghana Gruenenfe [facility] Body Mass Index (Ratio) 53.27 kg/m2 Linda Mahmood MD pulse rate 97 /min [facility] blood pressure, diastolic 82 mm[Hg] Br ittany Block blood pressure, systolic 138 mm[Hg] Eugenia ttany [facility] oxygen saturation, oximetry 94 % [facility] weight E&M 382 [lb_av] [facility] Block respiratory rate E&M 16 /min [facility] height E&M 71 [in_i] [facility] Body Mass Index (Ratio) 52.85 kg/m2 Niraj [...] lder height E&M 71 [in_i] Meghana Gruenenfe [facility] height E&M 71 [in_i] Woo Avitia MD Body Mass Index (Ratio) 54.25 kg/m2 Jonathon Faye oxygen saturation, oximetry 94 % [facility] pulse rate 81 /min [facility] respiratory rate E&M 18 /min [facility] blood pressure, diastolic, left arm 86 mm [Hg] [facility] blood pressure, systolic, left arm 140 mm [Hg] [facility] blood pressure, diastolic, right arm 81 m m[Hg] [facility] blood pressure, systolic, right arm 138 m m[Hg] [facility] blood pressure, diastolic 86 mm[Hg] To [facility] blood pressure, systolic 140 mm[Hg] [facility] temperature E&M 98.4 [degF] [facility] temperature site temporal [facility] weight E&M 389 [lb_av] [facility] height E&M 71 [in_i] [facility] blood pressure, diastolic 104 mm[Hg] To [facility] blood pressure, systolic 177 mm[Hg] [facility] blood pressure, resting Yes [facility] oxygen saturation, oximetry 95 % [facility] respiratory rate E&M 18 /min [facility] pulse rate 61 /min [facility] Body Mass Index (Ratio) 53.69 kg/m2 [facility] weight in kilograms E&M 174.63 kg [facility] weight E&M 385 [lb_av] [facility] temperature in centigrade E&M 37.17 Kathy [facility] temperature E&M 98.9 [degF] [facility] height in centimeters E&M 180.34 cm To [facility] height E&M 71 [in_i] [facility] ALLERGIES Allergy Name Onset Date Reaction Criticality [...] iron binding capacity, total 409 ug/dL [facility] [phone]/11 /21 free thyroxine index 1.4 [facility] 1.2-4.9 [...] [facility] 0-149 cholesterol, serum 173 mg/dL [facility] [phone]/11 /21 basophil count, absolute 0.0 x10E3/uL [facility] [...] Not Estab. platelet count 232 X10E3/UL [facility] [phone]/11 /21 red blood cell distribution width 14.8 [...] [facility] 39-117 bilirubin, serum, total 0.5 mg/dL [facility] 0.0-1.2 albumin/globulin ratio, serum 1.5 [facility] 1.2-2.2 globulin, serum 2.9 [facility] 1.5-4.5 albumin, serum 4.4 g/dL [facility] 3.8-4.9 protein, total, serum 7.3 g/dL [facility] 6.0-8.5 calcium, serum 9.5 mg/dL [facility] 8.7-10.2 carbon dioxide, venous blood 28 mmol/L [facility] 20-29 chloride, serum 97 mmol/L [facility] 96-106 potassium, serum 4.7 mmol/L [facility] 3.5-5.2 sodium, serum 139 mmol/L [facility] [phone]/11 /21 urea nitrogen/creatinine ratio, serum 15 [facility] 9-20 eGFR if 107 mL/min/{1.7 3_m2} [facility]59 eGFR if not 92 mL/min/{1.7 3_m2} [facility]59 creatinine, serum 0.94 mg/dL [facility] 0.76-1.27 urea nitrogen, blood 14 mg/dL [facility] 6-24 blood glucose, random 104 mg/dL [facility] 65-99 High digoxin level, serum 0.49 ng/mL [facility] troponin I <0.012 [facility] B-type natriuretic peptide 303 pg/mL [facility] thyroid stimulating hormone, serum 2.660 u[IU]/mL [facility] platelet count 180 10*3/uL [facility] red blood cell distribution width 15.1 % [facility] mean corpuscular hemoglobin concentration, RBC 30.6 g/dL [facility] mean corpuscular hemoglobin, RBC 27.5 pg [facility] mean corpuscular volume, RBC 89.9 fL [facility] hematocrit, blood 36.6 % [facility] hemoglobin, blood 11.2 g/dL [facility] erythrocyte (RBC) count 4.07 10*6/mm3 [facility] leukocyte count, blood 7.4 10*3/mm3 [facility] triglyceride, serum, fasting 99 mg/dL [facility] HDL cholesterol, serum 53 mg/dL [facility] LDL cholesterol, serum 107 mg/dL [facility] cholesterol, serum 180 mg/dL [facility] protein, total, serum 6.5 g/dL [facility] albumin, serum 3.5 g/dL [facility] bilirubin, serum, total 0.50 mg/dL [facility] alkaline phosphatase, serum 80 1/L [facility] alanine aminotransferase (SGPT), serum 18 1/L [facility] aspartate aminotransferase (SGOT), serum 22 1/L [facility] magnesium, serum 1.9 mg/dL [facility] calcium, serum 8.9 mg/dL [facility] blood glucose, random 119 mg/dL [facility] creatinine, serum 0.58 mg/dL [facility] urea nitrogen, blood 14 mg/dL [facility] carbon dioxide, serum, total 30 mmol/L [facility] chloride, serum 98 mmol/L [facility] potassium, serum 3.6 mmol/L [facility] sodium, serum 134 mmol/L [facility] HISTORY OF MEDICATION USE Medication Status [...] Payer name Policy type / Coverage type Formerly [facility] Medicaid 3 [id number] ADVANCE DIRECTIVES Name Date LIVING WILL ON FILE TREATMENT PLAN Date Name Performer [id number],S, N o recurrence. He continues on Magnesium and uses oxygen. Woo Avitia MD [id number],S, C ontinues on Lipitor. We aim for an LDL <70. Woo Avitia MD [id number],S, D enies of any chest pain. If there is recurrence of chest pain, will need a cardiac cath. Woo Avitia MD [id number],S, C ontinues on O2. Followed by pulmonary. Continues on bronchodilators. Woo Avitia MD [id number],S, M inimal palpitation burden. He continues on Dofetiliide and Diltiazem. On Xarelto for meterman OAC. Woo Avitia MD [id number],S, C ontinues on Lasix 40mg daily. Woo Avitia MD [id number],S, T he patient is using CPAP on a regular basis. The patient has been benefiting from therapy and should continue use. He is planning to ask his respiratory therapist about the Inspire device for sleep apnea. Woo Avitia MD [id number],S, W eight loss advised. Woo Avitia MD [id number],S, C ompensated. Continues on Lasix 40mg daily. Woo Avitia MD [id number],S, R easonably well controlled. Advised reduced sodium intake and routine monitoring of the blood pressure. We aim for blood pressure less than 130/80. Continues on his current regimen. Woo Avitia MD [id number],S, T he patient is using CPAP on a regular basis. The patient has been benefiting from therapy and should continue use. Woo Avitia MD [id number],S, L E swelling with pigementation changes. Uses ammonium lactate ointment. Woo Avitia MD [id number],S, C ontinues on Lipitor. We aim for an LDL <70. Woo Avitia MD [id number],S, N o recurrence. He continues on Magnesium and uses oxygen. Woo Avitia MD [id number],S, C ontinues on O2. Followed by pulmonary. Continues on bronchodilators. Woo Avitia MD [id number],S, M inimal palpitation burden. He continues on Dofetiliide and Diltiazem. On Xarelto for detention OAC. In SR today. Woo Avitia MD [id number],S, S table on continuous O2. Currently on 5L at home. He was advised to increase to 6L as needed for activity. Woo Avitia MD [id number],S, O ff Metformin. Reduced intake of carbohydrates and sugars advised. Woo Avitia MD [id number],S, C ontinues on Lipitor. We aim for an LDL <70. Woo Avitia MD [id number],S, T he patient is using CPAP on a regular basis. The patient has been benefiting from therapy and should continue use. Woo Avitia MD [id number],S, W eight loss advised. He has lost 52 lbs in the last year or so. Woo Avitia MD [id number],S, A dvised reduced sodium intake and routine monitoring of the blood pressure. We aim for blood pressure less than 130/80. Continues on his current regimen. Woo Avitia MD [id number],S, C ompensated. Continues on Lasix 40mg daily. Woo Avitia MD [id number],S, C ontinues on O2. Followed by pulmonary. Continues on bronchodilators. Woo Avitia MD [id number],S, N o recurrence. He continues on Magnesium and uses oxygen. Woo Avitia MD [id number],S, L ast week he had an episode [...] on Dofetiliide and Diltiazem. On Xarelto for detention OAC. Woo Avitia MD [id number],C,W eight loss advised. He has lost 31 lbs by implementing dietary changes. Woo Avitia MD [id number],C,T he patient is using CPAP on a regular basis. The patient has been benefiting from therapy and should continue use. Woo Avitia MD [id number],C,O n Metformin. Reduced intake of carbohydrates and sugars advised. Woo Avitia MD [id number],C,A dvised reduced sodium intake and routine monitoring of the blood pressure. We aim for blood pressure less than 130/80. Continues on his current regimen. Woo Avitia MD [id number],C,C ontinues on O2. Followed by pulmonary. Continues on bronchodilators. Recently started on Bevespi. Woo Avitia MD [id number],C,D enies of any chest pain. If there is recurrence of chest pain, will need a cardiac cath. Woo Avitia MD [id number],C,N o recurrence. He continues on Magnesium and uses oxygen. Woo Avitia MD [id number],C,R eports 6-7 very short episodes of palpitations in the past 4 months. He continues on Dofetiliide and Diltiazem. On Xarelto for detention OAC. Woo Avitia MD Telehealth, 6 month [...] on Dofetiliide and Diltiazem. On Xarelto for meterman OAC. Woo Avitia MD Telehealth, 6 month [...] on Dofetiliide and Diltiazem. On Xarelto for meterman OAC. In SR today. Woo Avitia MD [...] on Dofetiliide and Diltiazem. On Xarelto for detention OAC. Woo Avitia MD Telehealth:Weight lo ss [...] on Dofetiliide and Diltiazem. On Xarelto for meterman OAC. Woo Avitia MD Telehealth:Weight loss advised [...] on Dofetiliide and Diltiazem. On Xarelto for meterman OAC. [facility] TeleHealth:On Metformin. Danny Avitia [...] Cardizem CD 240mg daily. On Xarelto for detention OAC. Woo Avitia MD TeleHealth:Recently started on 4L O2 by pulmonary. Continues on bronchodilators. Woo Avitia MD TeleHealth:Improved on continuous O2. Currently on 4L at home. I advised him that he may benefit from increasing the O2 to 5L with activity. Woo Avitia MD Telehealth:No recurr ence s/p DEVON/CV. He continues on his current regimen. On Xarelto for detention OAC. [facility] Tele[facility]:Remains s hort of breath. [...] minute walk to determine need for oxygen. [facility] Cardiology Follow up :The patient is using CPAP on a regular basis. The patient has been benefiting from therapy and should continue use. [facility]iology Follow up :Weight los s advised [facility] Cardiology Follow up :Clinically compensated. [facility]iology Follow up :If there is recurrence of VT, would repeat stress test. [facility]iology Follow up :Continues on Lipitor. We aim for an LDL <70. Recent A1c 85. [facility]iology Follow up :Blood pressure elevated. Advised reduced sodium intake and routine monitoring of the blood pressure. We aim for blood pressure less than 130/80. He continues on Lisinopril, Cardizem, and Lasix. [facility] Cardiology Follow up :s/p DEVON/CV remains in sinus rhythm. Continues on Digoxin and Cardizem. On Xarelto for detention OAC. [facility] Cardiology Follow up :One 4 second [...] tab with evening meal. Orders: E KG (CPT-29959) C ardioversion - [facility] (CPT-30629) Ganga Zavala MD Cardiology Shravan Mahmood MD [...] ntake of carbohydrates and sugars advised. [facility] Telehealth:Awaiting new CPAP. Hemanth michelle [facility] Telehealth:Weight loss advised Heike back [facility] Telehealth:Continues on Lisinopril 40mg daily. Advised reduced sodium intake and routine monitoring of the blood pressure. We aim for blood pressure less than 130/80. [facility] Telehealth:Denies of any shortness of breath. He continues on Lasix. [facility] Telehealth:Denies of any palpitations. Advised to continue on anticoagulation with Xarelto. Will have the office try to assist with cost. [facility] Telehealth:Small, mi ld, apical wall defect consistent with ischemia seen on recent stress test. He is asymptomatic at this time therefore will hold off on further investigations. The patient is agreeable to continue with medical management. [facility] Cardiology:Had recen t split night study. Will f/u with Dr. Avitia. [facility] Cardiology:BP today: 140/86 P rior BP: 177/104 (10/15/2019) His updated medication list for this problem includes: Lasix 40 Mg Oral Tablet (Furosemide) ..... One tab by mouth daily Lisinopril 40 Mg Oral Tablet (Lisinopril) ..... Take 1 tablet by mouth every day [facility] Cardiology:Per recor ds from [facility], pt had elevated HgA1c of 6.1% recently. Will check HgA1c again. [facility] Cardiology:He has le g swelling and [...] ulcer C 6 : Active venous ulcer [facility] Cardiology:Pt had an admission in September with respiratory failure requiring intubation. Pt had an admission last week to [facility] with complaints of SOB [...] 1 tablet by mouth every day Jeremías [facility] Cardiology:Pt had an admission last week to [facility] with complaints of SOB and was found to be in AFib (new-onset). He was cardioverted successfully. We will stop Digoxin and continue Xarelto. Jeremías [facility] Cardiology:CPAP is b roken per patient. Will [...] TSH, free T4, total T3 DLCO - 57769 FRC - 38373 FVC - 04254 Arterial Duplex Bi-L ower EX PROBNP, N [...] ed FVC / MVV with bronchodilator - 59207 Ganga Zavala MD completed BLOOD COUNT HEMOGLOBIN Ganga fuentes MD completed FRC - 39770 Ganga urrutia MD completed SpO2 w/o 6min walk/titration Ganga Zavala MD completed DLCO - 92467 Ganga urrutia MD completed EKG Ganga urrutia MD completed EKG Woo Avitia MD complet ed
--- OUTSIDE RECORDS SUMMARY | 2024-09-16 10:21 | XMS_ITS | Clinical Summary ---
Author Organization [facility] Address [address] [place] [address] Care Team Providers Care Electrical And Instrumentation Manager Name Role Phone Jeniffer Veras NP Primary Care Provider [phone] Allergies Active Allergy Reactions Criticality Noted Date [...] 74 09/26/2021 12:37 PM CDT Temperature 36.2 C (97.2 F) 09/26/2021 12:37 PM CDT Respiratory Rate 18 09/26/2021 12:37 PM CDT [...] of 3 - 19+ 3-dose series) 1985 Pneumococcal Vaccine: 50+ Years (2 of 2 - PCV) 12/16/2020 12/17/2019 COVID-19 Vaccine (2023- season) 2024 03/16/2022, 09/09/2020, 08/20/2020, Additional history exists DTaP, Tdap and Td Vaccines (4 - Td or Tdap) 10/12/2030 10/12/2020, 12/07/2019, 07/05/2016, Additional history exists Zoster Vaccines Completed 05/11/2020, 02/13/2020 Meningococcal B Vaccine Aged Out No l onger eligible based on patient's age to complete this topic Meningococcal Vaccine Aged Out No nakul robinson eligible based on patient's age to complete this topic RSV Immunizations Under 20 Months Aged Out No longer eligible based on patient's age to complete this topic Insurance [employer] Advance Directives * Full Code (Latest Code Status on File) Date Activated Date Inactivated Comments 11/24/2021 2:21 PM Care Teams Electrical And Instrumentation Manager Relationship Specialty Start Date End Date Jeniffer eVras NP [employer] [place] [id number] PCP - General NURSE PRACTITIONER 09/01/21
--- OUTSIDE RECORDS SUMMARY | 2024-09-16 10:21 | XMS_ITS | Clinical Summary ---
Author Organization [email or web address] Address [address] [place] [address] Care Team Providers Care Bioprocess Development Engineer Name Role Phone Jose Naidu MD Primary Care Prov ider Source Comments [email or web address],non-owned Affiliates and Associated Physician Practices is amultiple site organization consisting of ambulatory clinics and hospital sitesin [place], [place], [place] and [place]. This disclosure is being madepursuant to the Care Everywhere program and may not contain all information available regarding this patient. Last updated 18.[email or web address] Allergies Active Allergy Reactions Criticality Noted Date Comments Penicillins 02/02/2011 Medications * Be aware that medications may not be up to date on this document. Alwaysverify current medications with the patient. mometasone (NASONEX) 50 MCG/ACT nasal sprayIndication s:Congestion,AR (allergic rhinitis) [place] 2 Sprays into each nostril once daily. 1 Inhaler 5 02/02/2011 Active triamcinolone acetonide (KENALOG) 0.1 % creamIndication s:Nummular eczema Apply to affected area 2 times [...] times daily. 30 Tab 0 06/03/2011 Active oxycodone-aceta minophen (PERCOCET) 5-325 MG tablet Take 1-2 Tabs by mouth every 4 hours as needed. 28 Tab 0 06/03/2011 Active lisinopril (PRINIVIL; ZESTRIL) 10 MG tabletIndicatio ns:HTN (hypertension) Take 1 Tab by mouth once daily. 90 Tab 0 10/20/2011 Active chlorthalidone (HYGROTON) 25 MG tabletIndicatio ns:HTN (hypertension) Take 1 Tab by mouth once [...] at Not on file Legal Sex Male 11:47 AM CONSERVATION ENGINEER Gender Identity Not on file Sexual Orientation Not on file Last Filed Vital Signs Vital Sign Reading Time Taken Comments Blood Pressure 121/81 06/03/2011 7:14 AM CONSERVATION ENGINEER Pulse 55 06/03/2011 7:14 AM CONSERVATION ENGINEER Temperature 36.4 C (97.6 F) 06/03/2011 7:14 AM CONSERVATION ENGINEER Respiratory Rate 20 06/03/2011 7:14 AM CONSERVATION ENGINEER Oxygen Saturation 96% 06/03/2011 7:14 AM CONSERVATION ENGINEER Inhaled Oxygen Concentration - - Weight 117.9 kg (260 lb) 06/01/2011 11:54 AM CONSERVATION ENGINEER Height 185.4 cm (6' 1 ) 06/01/2011 11:54 AM CONSERVATION ENGINEER Body Mass Index 34.3 06/01/2011 11:54 AM CONSERVATION ENGINEER Plan of Treatment Health Maintenance Due Date [...] VACCINE (1 - 2023-2 5 season) 2024 DEPRESSION SCREENING 05/14/2024 INFLUENZA VACCINE (Season Ended) 2025 HIB VACCINE Aged Out No longer eligi ble based on patient's age to complete this topic HPV VACCINE Aged Out No longer eligi ble based on patient's age to complete this topic MENINGOCOCCAL (Group B) VACC INE SHARED DECISION-MAKING Aged Out No longer eligibl e based on patient's age to complete this topic MENINGOCOCCAL GROUPS A/C/Y/W VACCINE Aged Out No longer eligible b ased on patient's age to complete this topic [...] PM CDT Narrative Resulting Agency Comment [facility] [address] [id number] us Murphy Valadez MD LAB - BODY FLUID ORDERABLES Fi nal Result [facility] ACCOUNT BILL [address] [place] [address] * (ABNORMAL) LIPID PROFILE (02/02/2011 1:27 PM [...] PM CDT Narrative Resulting Agency Comment [facility] [address] [id number] Murphy Valadez MD LAB - CHEMISTRY ORDERABLES Fin al Result [facility] ACCOUNT BILL [address] [place] [address] from Last 3 Months or Most Recently Relevant to Health Maintenance Insurance [facility] MEDICARE DUAL ADV [place] Advance Directives * FULL RESUSCITATION (Latest Code Status on File) Date Activated Date Inactivated Comments 06/01/2011 5:59 PM 06/04/2011 12:05 AM Care Teams Bioprocess Development Engineer Relationship Specialty [place] [id number] [address] PCP - General 10/18/20
--- OUTSIDE RECORDS SUMMARY | 2024-09-16 10:21 | XMS_ITS | Clinical Summary ---
Author Organization [facility] Address [address] [place] [address] Phone Care Team Providers Care Buying Agent Name Role Phone Unavailable Primary Care Provider [...] the evening. 07/08/2020 Active ergocalciferol 1.25 MG (37259 UT) capsule Take 1 capsule by mouth [...] Okay to continue on lisinopril hydrochlorothiazide. Immunizations Immunization Administration Dates Next Due Influenza, Quadrivalent, With [...] Comments Blood Pressure 112/68 06/06/2022 11:19 AM [employer] Pulse 81 06/06/2022 11:19 AM [employer] Temperature 36.1 C (97 F) 06/06/2022 11:19 AM [employer] Respiratory Rate 22 06/06/2022 11:1 9 AM [employer] Oxygen Saturation 95% 06/06/2022 11: 19 AM [employer] Inhaled Oxygen Concentration - - Weight 182 kg (402 lb) 06/06/2022 11:19 AM [employer] Patient in a wheelchair. Height 181.6 cm (5' 11.5 ) 06/06/2022 1 1:19 AM [employer] Body Mass Index 55.29 06/06/2022 11:19 AM [employer] Plan of Treatment Health Maintenance Due Date Last Done Comments Hepatitis B Vaccine (1 of 3 - 19+ 3-dose series) 1985 Colorectal Cancer Screening: Annual FOBT 11/08/2015 Colorectal Cancer Screening: Colonoscopy 11/08/2015 Colorectal Cancer Screening: Sigmoidoscopy 11/08/2015 Pneumococcal Vaccine: 50+ Ye ars (2 of 2 - PCV) 12/16/2020 12/17/2019 Diabetes: Ophthalmology Exam 12/21/2020 Diabetes: Pedal Pulse Checked 12/21/2020 Diabetes: Sensory Foot Exam 12/21/2020 Diabetes: Visual Foot Exam 12/21/2020 Diabetes: Hemoglobin A1C 09/03/2022 023, 01/11/2022, 10/13/2020 Influenza Vaccine (Season Ended) 2025 03/16/2022, 04/25/2021, 02/14/2020, Additional history exists Pneumococcal Vaccine: Peds ( 0 to 5 Years) and At-Risk Patients (6 to 49 Years) Discontinued 12/17/2019 Procedures Procedure Name Priority Date/Time Associated Diagnosis [...] 10.7 mg/dL Phosphorus, Serum 3.8 eGFR Non-Afr Irish >60 Osmolality Calc 288.0 mosm/kg Hemoglobin A1C [...] Most Recently Relevant to Health Maintenance Insurance [place] [employer]
--- OUTSIDE RECORDS SUMMARY | 2024-09-16 10:21 | XMS_ITS | Clinical Summary ---
Author Organization [facility] Brad urrutia [facility] Address [address] [place] [address] Care Team Providers Care Upper Caser Name Role Phone Unavailable Primary Care Provider Unavailabl e Encounters Date Type Department Care Team Description 07/17/2024 Abstract [facility] Bariatrics and General Surgery at the [facility] [address] [place] [address] [address] [place] [address] Marjorie Brown MD 07/17/2024 Chart Note [facility] Bariatrics and General Surgery at the [address] [place] [address] Marjorie Brown MD from Last 3 Months Social History Tobacco Use Types Packs/Day Years Used Date Smoking Tobacco: Never Assessed Sex and Gender Information Value Date Recorded Sex Assigned at Not on file Legal Sex Male 8:34 AM CDT Gender Identity Not on file Sexual Orientation Not on file Plan of Treatment Upcoming Encounters Date Type Department Care Team (Late st Contact Info) Description 12/31/2024 11:30 AM CDT Office Visit [facility] Bariatrics and General Surgery at the [address] [place] [address] Marjorie Brown MD [address] [place] [address] Rd [address] [place] [address] Health Maintenance Due Date Last Done Comments DTAP/TDAP/TD VACCINES (1 - Tdap) 1984 HEPATITIS B VACCINES (1 of 3 - 19+ 3-dose series) 10/13 COLORECTAL SCREENING 11/08/2011 Colorectal Cancer Screening 11/08/2011 FIT-DNA Q 3 years 11/08/2011 FIT/FOBT Q 1 year 11/08/2011 Flex Sig/CT Colonography Q 5 years 11/08/2011 ZOSTER VACCINE (1 of 2) 2016 INFLUENZA VACCINE (#1) 2023 Insurance [place]
[2024-09-16 10:40] LABS: Iron 52 ug/dL (65-175); Percent Iron Saturation 20 % (12-57)
== END 2024-09-16 09:40 | disposition home or self-care (01) ==
PROVIDERS: PCP Nurse Practitioner Family; Visit Provider Internal Medicine Cardiovascular Disease
DX: D50.9 Iron deficiency anemia, unspecified (principal); I48.0 Paroxysmal atrial fibrillation; L08.9 Local infection of the skin and subcutaneous tissue, unspecified
CPT/HCPCS: 36415; 83540; 83550; 85027; 87070; 87075; 87205; 93005

== ENCOUNTER 2024-09-19 10:01 | Outpatient (CLI) | payer MEDICARE, MEDICAID, SELFPAY ==
--- NOTE | ~2024-09-19 | US_ITS ---
EXAMINATION:US venous doppler LE LT INDICATION:Left anterior grigsby wound. Bilateral venous stasis. TECHNIQUE: Multiple grayscale, color flow and Doppler images of the left lower extremity deep venous systems were obtained and reviewed. COMPARISON:No prior studies for comparison. FINDINGS: The common femoral, superficial femoral and popliteal veins demonstrate normal respiratory variation, augmentation and compressibility. Color flow is also seen within the posterior tibial, pe roneal, greater saphenous and profunda veins. IMPRESSION: 1: No lower extremity deep venous thrombosis. Reviewed, dictated and finalized at location A.
--- OUTSIDE RECORDS SUMMARY | 2024-09-19 10:05 | XMS_ITS | CONTINUITY OF CARE DOCUMENT ---
Author Name alexandru, alexandru Address Unknown Organization [facility] Address [address] [place] [address] Phone [phone] Care Team Providers Care Blast Furnace Keeper Name Role Phone Sadi RICKS, Woo Unavailable ALFONSO MACIAS Unavailable [phone] HOPALFONSO RUSS Unavailable [phone] PROBLEMS Condition Status Date Provider Notes Hyperlipidemia;with [...] active Woo Avitia MD Afib active Woo Avtiia MD Leg edema active Jeremías Schmittberg Exposure to SARS-associated coronavirus;neg igg active Shravan Mahmood MD Elevated glucose completed - Shravan Mahmood MD Anemia, iron deficiency and folate def active Shravan Mahmood MD [place] PREDIABETES; active Shravan Mahmood MD Shortness of breath active Ganga urrutia MD COPD - on O2 active Woo Avitia MD [place] active Woo Avitia MD Chest pain completed - Woo Avitia MD ENCOUNTERS Date Type Provider Location Encounter Diag nosis - In-person encounter Office Visit Woo Avitia MD [facility] - In-person encounter Office Visit Woo Avitia MD [facility] Chest painCOPD - on O2 - In-person encounter Office Visit Woo Avitia MD [facility] [place] - In-person encounter Office Visit Ganga Zavala MD [facility] Shortness of breath - In-person encounter Office Visit Shravan Mahmood MD [facility] Elevated glucoseAnemia, iron deficiency and folate defPREDIABETES; - In-person encounter Office Visit Woo Avitia MD [facility] FENG - On CPAP - In-person encounter Office Visit Alexei Kurtz MD [facility] AfibLeg edemaExposure to SARS-associated coronavirus;neg igg - In-person encounter Office Visit Woo Avitia MD [facility] HTN essentialMorbid obesityAsthmaOSA - On CPAPDiastolic CHF VITAL SIGNS Date Observation Value Provider Body Mass Index (Ratio) 53.83 kg/m2 Olegario b Nacht blood pressure, diastolic 73 mm[Hg] Li nkLogic blood pressure, systolic 151 mm[Hg] Allyson kLogic Inhaled O2 5 L/min Lucretia Andrea blood pressure, diastolic 73 mm[Hg] Ca therine [place] blood pressure, systolic 151 mm[Hg] Cat herine [place] oxygen saturation, oximetry 98 % Lucretai [place] respiratory rate E&M 16 /min Catheri ne [place] pulse rate 78 /min Lucretia Andrea weight E&M 386 [lb_av] Lucretia Andrea blood pressure, cuff size large Ca therine [place] height E&M 71 [in_i] Lucretia [place] Body Mass Index (Ratio) 47.14 kg/m2 Teresa Avitia MD weight E&M 338 [lb_av] Woo Avitia MD height E&M 71 [in_i] Woo Avitia MD height E&M 71 [in_i] Woo Aivtia MD Inhaled O2 4 L/min Woo Avitia [...] lder weight E&M 387 [lb_av] Meghana Gruenenfe [facility] height E&M 71 [in_i] Meghana Gruenenfe [facility] Body Mass Index (Ratio) 53.27 kg/m2 Linda Mahmood MD pulse rate 97 /min [facility] blood pressure, diastolic 82 mm[Hg] Br ittany Block blood pressure, systolic 138 mm[Hg] Eugenia ttany [facility] oxygen saturation, oximetry 94 % [facility] weight E&M 382 [lb_av] [facility] Block respiratory rate E&M 16 /min [facility] Block height E&M 71 [in_i] [facility] Body Mass Index (Ratio) 52.85 kg/m2 Niraj [...] lder height E&M 71 [in_i] Meghana Gruenenfe [facility] height E&M 71 [in_i] Woo Avitia MD Body Mass Index (Ratio) 54.25 kg/m2 Jonathon Faye oxygen saturation, oximetry 94 % [facility] pulse rate 81 /min [facility] respiratory rate E&M 18 /min [facility] blood pressure, diastolic, left arm 86 mm [Hg] [facility] blood pressure, systolic, left arm 140 mm [Hg] [facility] blood pressure, diastolic, right arm 81 m m[Hg] [facility] blood pressure, systolic, right arm 138 m m[Hg] [facility] blood pressure, diastolic 86 mm[Hg] [facility] blood pressure, systolic 140 mm[Hg] [facility] temperature E&M 98.4 [degF] [facility] temperature site temporal [facility] weight E&M 389 [lb_av] [facility] height E&M 71 [in_i] [facility] blood pressure, diastolic 104 mm[Hg] [facility] blood pressure, systolic 177 mm[Hg] [facility] blood pressure, resting Yes [facility] oxygen saturation, oximetry 95 % [facility] respiratory rate E&M 18 /min [facility] pulse rate 61 /min [facility] Body Mass Index (Ratio) 53.69 kg/m2 [facility] weight in kilograms E&M 174.63 kg [facility] weight E&M 385 [lb_av] [facility] temperature in centigrade E&M 37.17 Kathy [facility] temperature E&M 98.9 [degF] [facility] height in centimeters E&M 180.34 cm [facility] height E&M 71 [in_i] [facility] ALLERGIES Allergy Name Onset Date Reaction [...] iron binding capacity, total 409 ug/dL [facility] [phone]/11 /21 free thyroxine index 1.4 [facility] 1.2-4.9 [...] [facility] 0-149 cholesterol, serum 173 mg/dL [facility] [phone]/11 /21 basophil count, absolute 0.0 x10E3/uL [facility] [...] Not Estab. platelet count 232 X10E3/UL [facility] [phone]/11 /21 red blood cell distribution width 14.8 [...] [facility] 39-117 bilirubin, serum, total 0.5 mg/dL [facility] 0.0-1.2 albumin/globulin ratio, serum 1.5 [facility] 1.2-2.2 globulin, serum 2.9 [facility] 1.5-4.5 albumin, serum 4.4 g/dL [facility] 3.8-4.9 protein, total, serum 7.3 g/dL [facility] 6.0-8.5 calcium, serum 9.5 mg/dL [facility] 8.7-10.2 carbon dioxide, venous blood 28 mmol/L [facility] 20-29 chloride, serum 97 mmol/L [facility] 96-106 potassium, serum 4.7 mmol/L [facility] 3.5-5.2 sodium, serum 139 mmol/L [facility] [phone]/11 /21 urea nitrogen/creatinine ratio, serum 15 [facility] 9-20 eGFR if 107 mL/min/{1.7 3_m2} [facility] >59 eGFR if not 92 mL/min/{1.7 3_m2} [facility] >59 creatinine, serum 0.94 mg/dL [facility] 0.76-1.27 urea nitrogen, blood 14 mg/dL [facility] 6-24 blood glucose, random 104 mg/dL [facility] 65-99 High digoxin level, serum 0.49 ng/mL [facility] troponin I <0.012 [facility] B-type natriuretic peptide 303 pg/mL [facility] thyroid stimulating hormone, serum 2.660 u[IU]/mL [facility] platelet count 180 10*3/uL [facility] red blood cell distribution width 15.1 % [facility] mean corpuscular hemoglobin concentration, RBC 30.6 g/dL [facility] mean corpuscular hemoglobin, RBC 27.5 pg [facility] mean corpuscular volume, RBC 89.9 fL [facility] hematocrit, blood 36.6 % [facility] hemoglobin, blood 11.2 g/dL [facility] erythrocyte (RBC) count 4.07 10*6/mm3 [facility] leukocyte count, blood 7.4 10*3/mm3 [facility] triglyceride, serum, fasting 99 mg/dL [facility] HDL cholesterol, serum 53 mg/dL [facility] LDL cholesterol, serum 107 mg/dL [facility] cholesterol, serum 180 mg/dL [facility] protein, total, serum 6.5 g/dL [facility] albumin, serum 3.5 g/dL [facility] bilirubin, serum, total 0.50 mg/dL [facility] alkaline phosphatase, serum 80 1/L [facility] alanine aminotransferase (SGPT), serum 18 1/L [facility] aspartate aminotransferase (SGOT), serum 22 1/L [facility] magnesium, serum 1.9 mg/dL [facility] calcium, serum 8.9 mg/dL [facility] blood glucose, random 119 mg/dL [facility] creatinine, serum 0.58 mg/dL [facility] urea nitrogen, blood 14 mg/dL [facility] carbon dioxide, serum, total 30 mmol/L [facility] chloride, serum 98 mmol/L [facility] potassium, serum 3.6 mmol/L [facility] sodium, serum 134 mmol/L [facility] HISTORY OF MEDICATION USE Medication Status Instructions Dates Provider Indications Com ments diltiazem HCl (Cardizem CD) 240 mg capsule,extended release 24hr completed TAKE 1 CAPSULE BY MOUTH EVERY DAY 05/23 - Aaliyah Arcoe dofetilide 250 mcg capsule completed TAKE 1 [...] Payer name Policy type / Coverage type [facility] Medicaid 3 [id number] ADVANCE DIRECTIVES Name Date LIVING WILL ON FILE TREATMENT PLAN Date Name Performer [id number],S, N o recurrence. He continues on Magnesium and uses oxygen. Woo Avitia MD [id number],S, C ontinues on Lipitor. We aim for an LDL <70. Woo Avitia MD [id number],S, D enies of any chest pain. If there is recurrence of chest pain, will need a cardiac cath. Woo Avitia MD [id number],S, C ontinues on O2. Followed by pulmonary. Continues on bronchodilators. Woo Avitia MD [id number],S, M inimal palpitation burden. He continues on Dofetiliide and Diltiazem. 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 Woo Avitia MD [id number],S, C ontinues on Lasix 40mg daily. Woo Avitia MD [id number],S, T he patient is using CPAP on a regular basis. The patient has been benefiting from therapy and should continue use. He is planning to ask his respiratory therapist about the Inspire device for sleep apnea. Woo Avitia MD [id number],S, W eight loss advised. Woo Avitia MD [id number],S, C ompensated. Continues on Lasix 40mg daily. Woo Avitia MD [id number],S, R easonably well controlled. Advised reduced sodium intake and routine monitoring of the blood pressure. We aim for blood pressure less than 130/80. Continues on his current regimen. Woo Avitia MD [id number],S, T he patient is using CPAP on a regular basis. The patient has been benefiting from therapy and should continue use. Woo Avitia MD [id number],S, L E swelling with pigementation changes. Uses ammonium lactate ointment. Woo Avitia MD [id number],S, C ontinues on Lipitor. We aim for an LDL <70. Woo Avitia MD [id number],S, N o recurrence. He continues on Magnesium and uses oxygen. Woo Avitia MD [id number],S, C ontinues on O2. Followed by pulmonary. Continues on bronchodilators. Woo Avitia MD [id number],S, M inimal palpitation burden. He continues on Dofetiliide and Diltiazem. On Xarelto for shelter OAC. In SR today. Woo Avitia MD [id number],S, S table on continuous O2. Currently on 5L at home. He was advised to increase to 6L as needed for activity. Woo Avitia MD [id number],S, O ff Metformin. Reduced intake of carbohydrates and sugars advised. Woo Avitia MD [id number],S, C ontinues on Lipitor. We aim for an LDL <70. Woo Avitia MD [id number],S, T he patient is using CPAP on a regular basis. The patient has been benefiting from therapy and should continue use. Woo Avitia MD [id number],S, W eight loss advised. He has lost 52 lbs in the last year or so. Woo Avitia MD [id number],S, A dvised reduced sodium intake and routine monitoring of the blood pressure. We aim for blood pressure less than 130/80. Continues on his current regimen. Woo Avitia MD [id number],S, C ompensated. Continues on Lasix 40mg daily. Woo Avitia MD [id number],S, C ontinues on O2. Followed by pulmonary. Continues on bronchodilators. Woo Avitia MD [id number],S, N o recurrence. He continues on Magnesium and uses oxygen. Woo Avitia MD [id number],S, L ast week he had an episode [...] on Dofetiliide and Diltiazem. On Xarelto for shelter OAC. Woo Avitia MD [id number],C,W eight loss advised. He has lost 31 lbs by implementing dietary changes. Woo Avitia MD [id number],C,T he patient is using CPAP on a regular basis. The patient has been benefiting from therapy and should continue use. Woo Avitia MD [id number],C,O n Metformin. Reduced intake of carbohydrates and sugars advised. Woo Avitia MD [id number],C,A dvised reduced sodium intake and routine monitoring of the blood pressure. We aim for blood pressure less than 130/80. Continues on his current regimen. Woo Avitia MD [id number],C,C ontinues on O2. Followed by pulmonary. Continues on bronchodilators. Recently started on Bevespi. Woo Avitia MD [id number],C,D enies of any chest pain. If there is recurrence of chest pain, will need a cardiac cath. Woo Avitia MD [id number],C,N o recurrence. He continues on Magnesium and uses oxygen. Woo Avitia MD [id number],C,R eports 6-7 very short episodes of palpitations in the past 4 months. He continues on Dofetiliide and Diltiazem. On Xarelto for shelter OAC. Woo Avitia MD Telehealth, 6 month [...] on Dofetiliide and Diltiazem. 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 Woo Avitia MD Telehealth, 6 month [...] on Dofetiliide and Diltiazem. 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 In SR today. Woo Avitia MD [...] on Dofetiliide and Diltiazem. On Xarelto for shelter OAC. Woo Avitia MD Telehealth:Weight lo ss [...] on Dofetiliide and Diltiazem. 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 Woo Avitia MD Telehealth:Weight loss advised [...] on Dofetiliide and Diltiazem. 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 Kota abdirizak TeleHealth:On Metformin. Danny Avitia [...] Cardizem CD 240mg daily. On Xarelto for shelter OAC. Woo Avitia MD TeleHealth:Recently started on 4L O2 by pulmonary. Continues on bronchodilators. Woo Avitia MD TeleHealth:Improved on continuous O2. Currently on 4L at home. I advised him that he may benefit from increasing the O2 to 5L with activity. Woo Avitia MD Telehealth:No recurr ence s/p DEVON/CV. He continues on his current regimen. On Xarelto for shelter OAC. [facility] Telehealth:Remains s hort of breath. [...] to determine need for oxygen. [facility] Cardiology Follow up :The patient is using CPAP on a regular basis. The patient has been benefiting from therapy and should continue use. [facility] Cardiology Follow up :Weight los s advised [facility] Cardiology Follow up :Clinically compensated. [facility] Cardiology Follow up :If there is recurrence of VT, would repeat stress test. [facility] Cardiology Follow up :Continues on Lipitor. We aim for an LDL <70. Recent A1c 85. [facility] Cardiology Follow up :Blood pressure elevated. Advised reduced sodium intake and routine monitoring of the blood pressure. We aim for blood pressure less than 130/80. He continues on Lisinopril, Cardizem, and Lasix. [facility] Cardiology Follow up :s/p DEVON/CV remains in sinus rhythm. Continues on Digoxin and Cardizem. On Xarelto for shelter OAC. [facility] Cardiology Follow up :One 4 second episode [...] tab with evening meal. Orders: E KG (CPT-73254) C ardioversion - [facility] (CPT-12658) Ganga Zvaala MD Cardiology Shravan Mahmood MD Cardiology Shravan [...] ntake of carbohydrates and sugars advised. [place] [facility] Telehealth:Awaiting new CPAP. Hemanth michelle [facility] Telehealth:Weight loss advised Heike back [facility] Telehealth:Continues on Lisinopril 40mg daily. Advised reduced sodium intake and routine monitoring of the blood pressure. We aim for blood pressure less than 130/80. [facility] Telehealth:Denies of any shortness of breath. He continues on Lasix. [facility] Telehealth:Denies of any palpitations. Advised to continue on anticoagulation with Xarelto. Will have the office try to assist with cost. [facility] Telehealth:Small, mi ld, apical wall defect consistent with ischemia seen on recent stress test. He is asymptomatic at this time therefore will hold off on further investigations. The patient is agreeable to continue with medical management. [facility] Cardiology:Had recen t split night study. Will f/u with Dr. Avitia. [facility] Cardiology:BP today: 140/86 P rior BP: 177/104 (10/15/2019) His updated medication list for this problem includes: Lasix 40 Mg Oral Tablet (Furosemide) ..... One tab by mouth daily Lisinopril 40 Mg Oral Tablet (Lisinopril) ..... Take 1 tablet by mouth every day [facility] Cardiology:Per recor ds from [facility], pt had elevated HgA1c of 6.1% recently. Will check HgA1c again. [facility] Cardiology:He has le g swelling and skin [...] ulcer C 6 : Active venous ulcer [facility] Cardiology:Pt had an admission in September with respiratory failure requiring intubation. Pt had an admission last week to [facility] with complaints of SOB and was found to be in AFib (new-onset). He was cardioverted successfully. We will stop Digoxin and continue Xarelto. Will obtain regadenosine myoview . His updated medication list for this problem includes: Lasix 40 Mg Oral Tablet (Furosemide) ..... One tab by mouth daily Lisinopril 40 Mg Oral Tablet (Lisinopril) ..... Take 1 tablet by mouth every day Jeremías [facility] Cardiology:Pt had an admission last week to [facility] with complaints of SOB and was found to be in AFib (new-onset). He was cardioverted successfully. We will stop Digoxin and continue Xarelto. Jeremías [facility] Cardiology:CPAP is b roken per patient. Will [...] TSH, free T4, total T3 DLCO - 57541 FRC - 47480 FVC - 42611 Arterial Duplex Bi-L ower EX PROBNP, N [...] ed FVC / MVV with bronchodilator - 15849 Ganga Zvaala MD completed BLOOD COUNT HEMOGLOBIN Ganga fuentes MD completed FRC - 17822 Ganga urrutia MD completed SpO2 w/o 6min walk/titration Ganga Zavala MD completed DLCO - 66757 Ganga urrutia MD completed EKG Ganga urrutia MD completed EKG Woo Avitia MD complet ed
--- OUTSIDE RECORDS SUMMARY | 2024-09-19 10:06 | XMS_ITS | Clinical Summary ---
Author Organization [facility] Address [address] [place] [address] Care Team Providers Care Credit Intern Name Role Phone Jose Naidu MD Primary Care Prov ider Source Comments [facility],non-owned Affiliates and Associated Physician Practices is amultiple site organization consisting of ambulatory clinics and hospital sitesin [place], [place], [place]. This disclosure is being madepursuant to the Care Everywhere program and may not contain all information available regarding this patient. Last updated 18.[facility] Allergies Active Allergy Reactions Criticality Noted Date Comments Penicillins 02/02/2011 Medications * Be aware that medications may not be up to date on this document. Alwaysverify current medications with the patient. mometasone (NASONEX) 50 MCG/ACT nasal sprayIndication s:Congestion,AR (allergic rhinitis) Jackson 2 Sprays into each nostril once daily. [...] on file Legal Sex Male 11:47 AM INKING MACHINE TENDER Gender Identity Not on file Sexual Orientation Not on file Last Filed Vital Signs Vital Sign Reading Time Taken Comments Blood Pressure 121/81 06/03/2011 7:14 AM INKING MACHINE TENDER Pulse 55 06/03/2011 7:14 AM INKING MACHINE TENDER Temperature 36.4 C (97.6 F) 06/03/2011 7:14 AM INKING MACHINE TENDER Respiratory Rate 20 06/03/2011 7:14 AM INKING MACHINE TENDER Oxygen Saturation 96% 06/03/2011 7:14 AM INKING MACHINE TENDER Inhaled Oxygen Concentration - - Weight 117.9 kg (260 lb) 06/01/2011 11:54 AM INKING MACHINE TENDER Height 185.4 cm (6' 1 ) 06/01/2011 11:54 AM INKING MACHINE TENDER Body Mass Index 34.3 06/01/2011 11:54 AM INKING MACHINE TENDER Plan of Treatment Health Maintenance Due Date [...] PM CDT Narrative Resulting Agency Comment [facility] [address] [id number] us Murphy Valadez MD LAB - BODY FLUID ORDERABLES Fi nal Result [facility] ACCOUNT BILL [id number] [place] [address] * (ABNORMAL) LIPID PROFILE (02/02/2011 1:27 PM [...] PM CDT Narrative Resulting Agency Comment [facility] [address] [id number] Murphy Valadez MD LAB - CHEMISTRY ORDERABLES Fin al Result [facility] ACCOUNT BILL [id number] [place] [address] from Last 3 Months or Most Recently Relevant to Health Maintenance Insurance [facility] MEDICARE DUAL ADV [place] Advance Directives * FULL RESUSCITATION (Latest Code Status on File) Date Activated Date Inactivated Comments 06/01/2011 5:59 PM 06/04/2011 12:05 AM Care Teams Credit Intern Relationship Specialty [place] [id number] [address] PCP - General 10/18/20
--- OUTSIDE RECORDS SUMMARY | 2024-09-19 10:06 | XMS_ITS | Clinical Summary ---
Author Organization [facility] Address [address] [place] [address] Care Team Providers Care Analysis Or Research Safety Inspector Name Role Phone Jeniffer Veras NP Primary Care Provider [phone] Allergies Active Allergy Reactions Criticality Noted Date [...] Inactivated Comments 11/24/2021 2:21 PM Care Teams Analysis Or Research Safety Inspector Relationship Specialty Start Date End Date Jeniffer Veras NP [facility] [place] [id number] PCP - General NURSE PRACTITIONER 09/01/21
--- OUTSIDE RECORDS SUMMARY | 2024-09-19 10:06 | XMS_ITS | Clinical Summary ---
Author Organization [facility] Address [address] [place] [address] Phone Care Team Providers Care Pharmacy Manager Name Role Phone Unavailable Primary Care Provider [...] the evening. 07/08/2020 Active ergocalciferol 1.25 MG (11603 UT) capsule Take 1 capsule by mouth [...] Comments Blood Pressure 112/68 06/06/2022 11:19 AM DIETITIAN HELPER Pulse 81 06/06/2022 11:19 AM DIETITIAN HELPER Temperature 36.1 C (97 F) 06/06/2022 11:19 AM DIETITIAN HELPER Respiratory Rate 22 06/06/2022 11:1 9 AM DIETITIAN HELPER Oxygen Saturation 95% 06/06/2022 11: 19 AM DIETITIAN HELPER Inhaled Oxygen Concentration - - Weight 182 kg (402 lb) 06/06/2022 11:19 AM DIETITIAN HELPER Patient in a wheelchair. Height 181.6 cm (5' 11.5 ) 06/06/2022 1 1:19 AM DIETITIAN HELPER Body Mass Index 55.29 06/06/2022 11:19 AM DIETITIAN HELPER Plan of Treatment Health Maintenance Due Date [...] 10.7 mg/dL Phosphorus, Serum 3.8 eGFR Non-Afr Citizen Of [place] >60 Osmolality Calc 288.0 mosm/kg Hemoglobin A1C [...]
--- OUTSIDE RECORDS SUMMARY | 2024-09-19 10:06 | XMS_ITS | Data Portability ---
Author Organization [place] [facility] [employer], Main Office Address [address] [place] [address] Assessment Encounter Date Assessment Date Assessment LastModified by Organization Details LastModified Time 09/27/2022 09/27/2022 WEA- 11/17/21 Cscope- Colonoscopy 09/2020- Nyazee- WNL- repeat 2030 PSA-08/02/21 Call office if worse, ER if life threatening illness RTC 3 months He voices understanding of plan and agrees [email or web address] Not available 09/27/2022 15:24:07 12/19/2022 12/19/2022 Spent [...] him to get out of the house [email or web address] Not available 01/31/2023 14:03:14 Plan of Treatment Reminders Order Date Submit Date Provider Last Modified By Organization Details Last Modified Time Details Appointments None recorded. Lab gas panel, arterial blood 2022 023 [email or web address] 25 [facility], [address] [place], [address], 3 12:02:11 HbA1c (hemoglobin A1c), blood [address] (Lab), [address] [place], [address], 3 14:42:58 microalbumi n/creatinin e, mass ratio, urine [address] (Lab), [address] [place], [address], 14:42:58 lipid panel, serum 2022 023 [facility] (Lab), [address] [place], [address], 3 19:15:11 TSH, serum or plasma 2022 023 [facility] (Lab), [address] [place], [address], 3 19:34:59 T4, free, serum 2022 023 [facility] (Lab), [address] [place], [address], 3 19:17:26 vitamin B12 + folate, serum or blood [address] (Lab), [address] [place], [address], 3 14:42:58 vitamin D, 25-hydroxy, total, serum 2022 023 [email or web address] [facility] (Lab), [address] [place], [address], 3 14:42:58 CMP, serum or plasma 2022 023 [facility] (Lab), [address] [place], [address], 3 19:15:08 CBC w/ auto diff 2022 023 [facility] (Lab), [address] [place], [address], 3 18:21:37 Referral neurologist referral - Lizzie Morse [email or web address] 15 [facility], [phone] 2022 023 [email or web address] Not available 4 10:44:46 cardiologis t referral 2022 023 [email or web address] Moose Zelaya DO, [address] [facility] [address], [place], [address], 4 10:44:25 Procedures None recorded. Surgeries None recorded. Imaging None recorded. Medication Orders None recorded. Patient TargetsNo targets recorded. Patient Instructions Encounter Date Encounter Id Patient Instructions Last Modified By Organization Details Last Modified Time 01/31/2023 [id number] Due to the COVID-19 (Novel Coronavirus) pandemic, it is within this context (and with the understanding that this method of patient encounter is in the patient s best interest as well as the health and safety of other patients and the public) that [facility] is [facility] provided [facility] this patient encounter rather than a jjca-ah-wrhp visit. This patient encounter is appropriate at this time. This patient has been advised of the potential risks and limitations of this mode of treatment (including, but not limited to, the absence of in-person examination) and has agreed to be treated in a remote fashion despite these risks. 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 Pa roxysmal atrial fibrillation Referring Physician: Jeniffer Veras, Internal Medicine, Encounter Date: 09/27/2022 Neurologist Referral for Carmelo yneuropathy Lizzie Winter- [id number] [facility], [phone] Referring Physician: Jeniffer Veras, Internal Medicine, Encounter Date: 09/27/2022 Results Created Date Observation Date Name Description Value Unit Range Abnormal Flag Note LastModifiedBy Organization Detail LastModifiedTime 09/28/1909/27/2022 CBC/C OMPLE TE BLD COUNT W/DIF F white blood cells 8.5 x10'3 /uL 4.2-10 .8 Not Available [facility] (Lab) [address] [place], [address], 09/27/2022 18:21:37 09/28/19 23 09/27/2022 CBC/C OMPLE TE BLD COUNT W/DIF F red blood cells 3.88 x10'6 /uL 4.10-5 .80 low Not Available [facility] (Lab) [address] [place], [address], 09/27/2022 18:21:37 09/28/19 23 09/27/2022 CBC/C OMPLE TE BLD COUNT W/DIF F hemoglobin 11.4 g/dL 13.2-1 7.0 low Not Available [facility] (Lab) [address] [place], [address], 09/27/2022 18:21:37 09/28/19 23 09/27/2022 CBC/C OMPLE TE BLD COUNT W/DIF F hematocrit 37.9 % 39.3-5 0.0 low Not Available [facility] (Lab) [address] [place], [address], 09/27/2022 18:21:37 09/28/19 23 09/27/2022 CBC/C OMPLE TE BLD COUNT W/DIF F mean red cell volume 97.7 fL 80.0-9 7.0 high Not Available [facility] (Lab) [address] [place], [address], 09/27/2022 18:21:37 09/28/19 23 09/27/2022 CBC/C OMPLE TE BLD COUNT W/DIF F mean red cell hemoglobin 29.4 pg 27.0-3 3.0 Not Available [facility] (Lab) [address] [place], [address], 09/27/2022 18:21:37 09/28/19 23 09/27/2022 CBC/C OMPLE TE BLD COUNT W/DIF F mean RBC HGB concentratio n 30.1 g/dL 31.0-3 6.0 low Not Available [facility] (Lab) [address] [place], [address], 09/27/2022 18:21:37 09/28/19 23 09/27/2022 CBC/C OMPLE TE BLD COUNT W/DIF F red cell distribution width 14.7 % 11.8-1 5.5 Not Available [facility] (Lab) [address] [place], [address], 09/27/2022 18:21:37 09/28/19 23 09/27/2022 CBC/C OMPLE TE BLD COUNT W/DIF F platelets 197 x10'3 /uL 150-40 0 Not Available [facility] (Lab) [address] [place], [address], 09/27/2022 18:21:37 09/28/19 23 09/27/2022 CBC/C OMPLE TE BLD COUNT W/DIF F mean platelet volume 10.6 fL 9.0-12 .4 Not Available [facility] (Lab) [address] [place], [address], 09/27/2022 18:21:37 09/28/19 23 09/27/2022 CBC/C OMPLE TE BLD COUNT W/DIF F neutrophils 80.0 % 39.0-7 2.0 high Not Available [facility] (Lab) [address] [place], [address], 09/27/2022 18:21:37 09/28/19 23 09/27/2022 CBC/C OMPLE TE BLD COUNT W/DIF F lymphocytes 9.3 % 16.0-4 7.0 low Not Available [facility] (Lab) [address] [place], [address], 09/27/2022 18:21:37 09/28/19 23 09/27/2022 CBC/C OMPLE TE BLD COUNT W/DIF F monocytes 5.3 % 5.0-12 .0 Not Available [facility] (Lab) [address] [place], [address], 09/27/2022 18:21:37 09/28/19 23 09/27/2022 CBC/C OMPLE TE BLD COUNT W/DIF F eosinophils 4.4 % 1.0-7. 0 Not Available [facility] (Lab) [address] [place], [address], 09/27/2022 18:21:37 09/28/19 23 09/27/2022 CBC/C OMPLE TE BLD COUNT W/DIF F basophils 0.4 % 0.0-2. 0 Not Available [facility] (Lab) [address] [place], [address], 09/27/2022 18:21:37 09/28/19 23 09/27/2022 CBC/C OMPLE TE BLD COUNT W/DIF F immature granulocytes 0.6 % 0.00-0 .50 high Not Available [facility] (Lab) [address] [place], [address], 09/27/2022 18:21:37 09/28/19 23 09/27/2022 CBC/C OMPLE TE BLD COUNT W/DIF F neutrophils, absolute count 6.77 x10'3 /uL 1.5-8. 0 Not Available [facility] (Lab) [address] [place], [address], 09/27/2022 18:21:37 09/28/19 23 09/27/2022 CBC/C OMPLE TE BLD COUNT W/DIF F lymphocytes, absolute count 0.79 x10'3 /uL 1.07-3 .43 low Not Available [facility] (Lab) [address] [place], [address], 09/27/2022 18:21:37 09/28/19 23 09/27/2022 CBC/C OMPLE TE BLD COUNT W/DIF F monocytes, absolute count 0.45 x10'3 /uL 0.29-0 .99 Not Available [facility] (Lab) [address] [place], [address], 09/27/2022 18:21:37 09/28/19 23 09/27/2022 CBC/C OMPLE TE BLD COUNT W/DIF F eosinophils, absolute count 0.37 x10'3 /uL 0.02-0 .53 Not Available [facility] (Lab) [address] [place], [address], 09/27/2022 18:21:37 09/28/19 23 09/27/2022 CBC/C OMPLE TE BLD COUNT W/DIF F basophils, absolute count 0.03 x10'3 /uL 0.01-0 .08 Not Available [facility] (Lab) [address] [place], [address], 09/27/2022 18:21:37 09/28/19 23 09/27/2022 CBC/C OMPLE TE BLD COUNT W/DIF F immature granulocytes ,absolute 0.05 x10'3 /uL 0.00-0 .05 Not Available [facility] (Lab) [address] [place], [address], 09/27/2022 18:21:37 09/28/19 23 09/27/2022 CBC/C OMPLE TE BLD COUNT W/DIF F nucleated red blood cells 0.0 % -0 Not Available [facility] (Lab) [address] [place], [address], 09/27/2022 18:21:37 09/28/19 23 09/27/2022 CBC/C OMPLE TE BLD COUNT W/DIF F NRBC# 0.00 x10'3 /uL Not Available [facility] (Lab) [address] [place], [address], 09/27/2022 18:21:37 09/28/19 23 09/27/2022 COMPR EHENS ESTEFANIA METAB OLIC PANEL sodium 134 mmol/ L 137-14 5 low Not Available [facility] (Lab) [address] [place], [address], 09/27/2022 19:15:08 09/28/19 23 09/27/2022 COMPR EHENS ESTEFANIA METAB OLIC PANEL potassium 4.3 mmol/ L 3.5-5. 1 Not Available [facility] (Lab) [address] [place], [address], 09/27/2022 19:15:08 09/28/19 23 09/27/2022 COMPR EHENS ESTEFANIA METAB OLIC PANEL chloride 93 mmol/ L 98-107 low Not Available [facility] (Lab) [address] [place], [address], 09/27/2022 19:15:08 09/28/19 23 09/27/2022 COMPR EHENS ESTEFANIA METAB OLIC PANEL carbon dioxide 36 mmol/ L 22-30 high Not Available [facility] (Lab) [address] [place], [address], 09/27/2022 19:15:08 09/28/19 23 09/27/2022 COMPR EHENS ESTEFANIA METAB OLIC PANEL anion gap 9.3 mmol/ L 14-22 low Not Available [facility] (Lab) [address] [place], [address], 09/27/2022 19:15:08 09/28/19 23 09/27/2022 COMPR EHENS ESTEFANIA METAB OLIC PANEL glucose 118 mg/dL 70-99 high Not Available [facility] (Lab) [address] [place], [address], 09/27/2022 19:15:08 09/28/19 23 09/27/2022 COMPR EHENS ESTEFANIA METAB OLIC PANEL BUN 13 mg/dL 8-19 Not Available [facility] (Lab) [address] [place], [address], 09/27/2022 19:15:08 09/28/19 23 09/27/2022 COMPR EHENS ESTEFANIA METAB OLIC PANEL creatinine 0.69 mg/dL 0.66-1 .25 Not Available [facility] (Lab) [address] [place], [address], 09/27/2022 19:15:08 09/28/19 23 09/27/2022 COMPR EHENS ESTEFANIA METAB OLIC PANEL GFR >60 Refer ence Range : [employer] ge GFR Healt hy Adult : >60 [...] calcu lator is avail able on the [facility] websi te: https :[email or web address] silverio.tash calvillo.o rg/pr ofess ional s/kdo qi/gf r_cal culat or Not Available [facility] (Lab) [address] [place], [address], 09/27/2022 19:15:08 09/28/19 23 09/27/2022 COMPR EHENS ESTEFANIA METAB OLIC PANEL alkaline phosphatase 77 U/L 38-126 Not Available [facility] (Lab) [address] [place], [address], 09/27/2022 19:15:08 09/28/19 23 09/27/2022 COMPR EHENS ESTEFANIA METAB OLIC PANEL alanine aminotransfe rase 20 U/L 0-50 Not Available [facility] (Lab) [address] [place], [address], 09/27/2022 19:15:08 09/28/19 23 09/27/2022 COMPR EHENS ESTEFANIA METAB OLIC PANEL aspartate aminotransfe rase 42 U/L 15-46 Not Available [facility] (Lab) [address] [place], [address], 09/27/2022 19:15:08 09/28/19 23 09/27/2022 COMPR EHENS ESTEFANIA METAB OLIC PANEL bilirubin, total 0.40 mg/dL 0.20-1 .30 Not Available [facility] (Lab) [address] [place], [address], 09/27/2022 19:15:08 09/28/19 23 09/27/2022 COMPR EHENS ESTEFANIA METAB OLIC PANEL calcium 8.5 mg/dL 8.4-10 .2 Not Available [facility] (Lab) [address] [place], [address], 09/27/2022 19:15:08 09/28/19 23 09/27/2022 COMPR EHENS ESTEFANIA METAB OLIC PANEL total protein 7.5 g/dL 6.3-8. 2 Not Available [facility] (Lab) [address] [place], [address], 09/27/2022 19:15:08 09/28/19 23 09/27/2022 COMPR EHENS ESTEFANIA METAB OLIC PANEL albumin 3.7 g/dL 3.4-5. 0 Not Available [facility] (Lab) [address] [place], [address], 09/27/2022 19:15:08 09/28/19 23 09/27/2022 COMPR EHENS ESTEFANIA METAB OLIC PANEL globulin 3.8 g/dL 2.6-4. 2 Not Available [facility] (Lab) [address] [place], [address], 09/27/2022 19:15:08 09/28/19 23 09/27/2022 COMPR EHENS ESTEFANIA METAB OLIC PANEL A/G ratio 1.0 ratio 1.0-2. 0 Not Available [facility] (Lab) [address] [place], [address], 09/27/2022 19:15:08 09/28/19 23 09/27/2022 LIPID PANEL cholesterol 145 mg/dL 140-19 9 NIH SANDI NSUS RECOM MENDA TION FOR DAYANARA STERO L: ADULT CHILD LOW RISK: <200 <170 BORDE RLINE : <200- 239 ----- HIGH RISK: >240 >200 Not Available [facility] (Lab) [address] [place], [address], 09/27/2022 19:15:11 09/28/19 23 09/27/2022 LIPID PANEL triglyceride s 113 mg/dL 0-150 NIH SANDI NSUS REPOR T RECOM MENDA TION FOR TRIGL YCERI JIMI: ADULT CHILD LOW RISK: <150 ----- BODER LINE: 150-1 99 ----- HIGH RISK: >200 ----- Not Available [facility] (Lab) [address] [place], [address], 09/27/2022 19:15:11 09/28/19 23 09/27/2022 LIPID PANEL HDL cholesterol 65 mg/dL 40- Not Available [facility] (Lab) [address] [place], [address], 09/27/2022 19:15:11 09/28/19 23 09/27/2022 LIPID PANEL LDL cholesterol, calculated 57 mg/dL [...] WILL NOT BE REPOR PADDY. Not Available [facility] (Lab) [address] [place], [address], 09/27/2022 19:15:11 09/28/19 23 09/27/2022 T4 FREE free T4 1.06 NG/dL 0.78-2 .19 Not Available [facility] (Lab) [address] [place], [address], 09/27/2022 19:17:26 09/28/19 23 09/27/2022 TSH thyroid-stim ulating hormone 3.250 uIU/m L 0.465- 4.680 Not Available [facility] (Lab) [address] [place], [address], 09/27/2022 19:34:59 09/28/19 23 09/27/2022 MICRO ALBUM N RNDM W/CRE AT RATIO ur creat 200.90 mg/dL REFER ENCE RANGE NOT ESTAB LISHE D FOR RANDO M URINE CREAT ININE Not Available [facility] (Lab) [address] [place], [address], 09/27/2022 20:10:17 09/28/19 23 09/27/2022 MICRO ALBUM N RNDM W/CRE AT RATIO microalbumin , urine 144.0 mg/L 0.0-16 .6 high Not Available [facility] (Lab) [address] [place], [address], 09/27/2022 20:10:17 09/28/19 23 09/27/2022 MICRO ALBUM [...] DIABE BRENDA CARE, VOL. 26: S94-S 96, 2002 Not Available [facility] (Lab) [address] [place], [address], 09/27/2022 20:10:17 09/28/19 23 09/27/2022 VITAM IN D 25-HY DROXY [id number] 27.8 NG/mL 30-100 low Vitam in D Statu s: Defic ient: <20 ng/mL Insuf ficie nt: 20-29 ng/mL Suffi cient : 30-10 0 ng/mL Not Available [facility] (Lab) [address] [place], [address], 09/27/2022 20:11:01 09/28/19 23 09/27/2022 HEMOG LOBIN A1C HA1C 5.9 % 4.0-6. 0 Diabe brenda Scree ester Crite clyde: <5.7% Consi stent with absen ce of diabe brenda 5.7-6 .4% Consi stent with incre ased risk for diabe brenda (pred iabet es) >OR=6 .5% Consi stent with diabe brenda REFER ENCE: Diabe brenda Care 2016, 39(Samson ppl.1 ):s13 -s22 Not Available [facility] (Lab) [address] [place], [address], 09/27/2022 20:17:56 09/28/19 23 09/27/2022 VITAM IN B12 (SARAH STEFANIE ) vb12 424 pg/mL 239-93 1 Not Available [facility] (Lab) [address] [place], [address], 09/27/2022 21:05:12 09/28/19 23 09/27/2022 FOLAT E, SERUM /PLAS MA folate 14.5 NG/mL 2.76-2 0.0 Not Available [facility] (Lab) [address] [place], [address], 09/27/2022 21:05:13 11/18/19 23 11/10/2022 compl ete PFT w/ post [facility] hodil ator samantha metry * No observ ation record ed. [email or web address] Not Available 11/23 11:31:45 11/18/1911/10/2022 six min walk test w/ O2 titra tion* No observ ation record ed. Not Available 05/2022 18:36:39 11/25/1911/10/2022 PFT, compl ete No observ ation record ed. [email or web address] [address] [facility], [place], [address], 12/04/2022 10:28:30 12/13/1912/12/2022 XR, chest , 2 view No observ ation record ed. [address] [facility], [place], [address], 12/13/2022 10:21:14 12/14/19 23 12/13/2022 [place], [facility] ardio gram No observ ation record ed. [address] [facility], [place], [address], 12/14/2022 11:49:41 12/15/1912/13/2022 US, debbie brandon extre mity, compl ete No observ ation record ed. [address] [facility], [place], [address], 12/14/2022 11:50:06 12/26/19 23 12/25/2022 US, echo ardio gram No observ ation record ed. [address] [facility], [place], [address], 01/01/2023 16:55:53 Result Notes None recorded. Problems Name Problem SNOMED Code Status Onset Date Resolution Date Notes Provider Name and Address Organization Details Recorded Time Open wound of right lower leg 1282441418157 9101 Active 2021 Not Available [employer] 3 09:39:48 Chronic obstructiv e pulmonary disease 10677757 Active 2020 Not Available [facility] 3 09:39:48 Serum vitamin B12 below reference range 452181055 Active 2021 Not Available [facility] 3 09:39:48 Cobalamin deficiency 842572064 Active 2021 Not Available [facility] 3 09:39:48 Anemia 205620073 Active 2021 Not Available [facility] 3 09:39:48 Vitamin D deficiency 28649410 Active 2021 Not Available [facility] 3 09:39:48 Onychomyco sis 204743069 Active 2021 Not Available [facility] 3 09:39:48 Dyspnea on exertion 87779722 Active 2020 Not Available [facility] 3 09:39:48 Diabetes mellitus 49678476 Active 2020 Not Available [facility] 3 09:39:48 Posterior rhinorrhea 99163086 Active 2022 Not Available [facility] 3 09:39:48 Obstructiv e sleep apnea syndrome 64927993 Active 2021 Not Available [facility] 3 09:39:48 Paroxysmal atrial fibrillati on 828865212 Active 2022 Not Available [facility] 3 09:39:48 Congestive heart failure 50112197 Active 2022 Not Available [facility] 3 09:39:48 Morbid obesity 329762138 Active 2022 Not Available [facility] 3 09:39:48 Essential hypertensi on 30532660 Active 2022 Not Available [facility] 3 09:39:48 Testostero ne level below reference range 079121572 Active 2022 Not Available [facility] 3 09:39:48 Peripheral vascular disease 661206046 Active 2022 Not Available [facility] 3 09:39:48 Deficiency of vitamin D3 683628163 Active 2022 [facility] Available [facility] 3 09:39:48 Vitamin B12 deficiency (non anemic) 07007356 Active 2022 Not Available [facility] 3 09:39:48 Major depressive disorder 159054452 Active 2022 Not Available [facility] 3 09:39:48 Asthma 169965239 Active 2022 Not Available [facility] 3 09:39:48 Hyperlipid emia 33925877 Active 2022 Not Available [facility] 3 09:39:48 Iron deficiency anemia 20836613 Active 2022 Not Available [facility] 3 09:39:48 Dry skin dermatitis 817564093 Active 2022 Not Available [facility] 3 09:39:48 Proteinuri a 46511036 Active 2022 Not Available [facility] 3 09:39:48 Foot callus 526682547 Active 2022 Not Available [facility] 3 09:39:48 Polyneurop athy 05359858 Active 2022 Not Available [facility] 3 09:39:48 Type 2 diabetes mellitus 42233353 Active 2022 Not Available [facility] 3 09:39:48 Gastroesop hageal reflux disease 248588896 Active 2022 Not Available [facility] 3 09:39:48 Upper respirator y infection 69258438 Active 2022 Sadia adams [employer] 3 14:39:45 Chronic hypercapni c respirator y failure 412006758 Active 2022 Belinda Alonzo, SSRS REPORT DEVELOPER-BC [address], [address] , [employer] 3 14:43:19 Open wound of toe of right foot 7139049888908 9100 Active 2022 Sadia adams [place] [facility] [place] [facility] [employer] 3 13:45:40 Pain of left shoulder joint 7790336218577 9109 Active 2022 JEANIE Grissom-Zhanna [address] [facility], [facility] [address], [place], [address] , [place] [facility] ([employer]) 3 11:24:22 Neck pain 73495538 Active 2022 Sadia adams, [facility] ([employer] 3 14:05:56 Problem Notes None recorded. Procedures Surgical History Date Name Laterality Status Provider Name and Address Organization Details Recorded Time Appendectomy completed Not Available [facility] 07/12/2022 00:43:19 Orthopedic Surgery completed Not Available [facility] 07/12/2022 00:43:19 Imaging Results Imaging Date Name Status LastModified by Organization Details LastModified Time 11/10/2022 complete PFT w/ post bronchodilator spirometry* completed Information not available 11/23/2022 11:31:45 11/10/2022 six min walk test w/ O2 titration* completed [email or web address] Information not available 12/12/2022 18:36:39 11/10/2022 PFT, complete completed [email or web address] [address], [address], 12/04/2022 10:28:30 12/12/2022 XR, chest, 2 view completed [address], [address], 12/13/2022 10:21:14 12/13/2022 US, echocardiogram completed Niles [address], [address], 12/14/2022 11:49:41 12/13/2022 US, duplex, venous, extremity, complete completed [email or web address], [address], 12/14/2022 11:50:06 12/25/2022 US, echocardiogram completed Niles [address] [place], [address], 01/01/2023 16:55:53 Procedure Notes None recorded. Medical Equipment None Reported. Allergies Allergen ID Allergen Name Allergen Category Reaction Reaction Severity Criticality Documentation Date Start Date Code Code System Note Provider Name and Address Organization Details Recorded Time 304 Product containin g penicilli n (product) medicatio n anaphylax is Not available Not available 07/12/2022 44515 8001 SNOMED Not Available [facility] 3 00:50:58 93930 penicilli n V Not available Not available Not available Not available 09/17/2023 7984 RxNorm Other react ions and sever ities : 'Adve rse react ion to subst ance - Sever e'. Hilda Morel, HALL TENDER [address] [facility], [facility] [address], [place], [address] , [facility] ([employer]) 4 08:06:02 Medications Name Sig Start Date [...] Not Available Not Available BD Regular Bevel [place] 21 gauge x 1 1/2 USE TO INJECT ONCE MONTHLY active Not Available Not Available No t Available Aloe Harvard Antifunga l (miconazo le) 2 % topical [...] [degF] 136 mm[Hg] 80 mm[Hg] Not Available [facility] 3 00:45:03 Date Recorded Body height Oxygen saturation Oxygen saturation in Arterial blood by Pulse oximetry Heart rate Body temperature Systolic blood pressure Diastolic blood pressure Provider Name and Address Organization Details Last Updated DateTime 3 180.34 cm 95 % 95 % 83 /min 96.3 [degF] 122 mm[Hg] 74 mm[Hg] Not Available [facility] 3 00:45:03 Date Recorded Body height Body temperature Heart rate Oxygen saturation Oxygen saturation in Arterial blood by Pulse oximetry Inhaled oxygen flow rate Systolic blood pressure Diastolic blood pressure Provider Name and Address Organization Details Last Updated DateTime 3 180.34 cm 98.4 [degF] 76 /min 98 % 98 % 5 L/min 134 mm[Hg] 74 mm[Hg] Nilda Corbett MA [facility] [employer] [facility] 3 14:26:19 Date Recorded Body height Body temperature Heart rate Oxygen saturation Oxygen saturation in Arterial blood by Pulse oximetry Inhaled oxygen flow rate Provider Name and Address Organization Details Last Updated DateTime 3 180.34 cm 98.9 [degF] 80 /min 94 % 94 % 4 L/min Anaid Flynn RN [facility] [employer] [facility] 3 14:13:14 Date Recorded Body height Provider Name an d Address Organization Details Last Updated DateTime 01/31/2023 180.34 cm Nilda Corbett MA [facility] [employer] [facility] 01/31/2023 10:43:04 Social History Question Answer Notes LastModified by Organizat ion Details LastModified Time Tobacco Smoking Status Never Smoker Not Available [facility] 07/12/2022 00:42:46 Do You Have An Advance Directive? Yes Living Will MIGRATION.85576 12522 Information not available 07/12/2022 What Is Your Level Of Alcohol Consumption? None MIGRATION.60866 33366 Information not available 07/12/2022 What Is Your Level Of Caffeine Consumption? Moderate MIGRATION.21313 75741 Information not available 07/12/2022 How Much Tobacco Do You Chew? None MIGRATION.18417 87364 Information not available 07/12/2022 In The 14 Days Before Symptom Onset, Have You Had Close Contact With A Laboratory-confi rmed COVID-19 While That Case Was Ill? No MIGRATION.42211 53455 Information not available 07/12/2022 In The 14 Days Before Symptom Onset, Have You Had Close Contact With A Person Who Is Under Investigation For COVID-19 While That Person Was Ill? No MIGRATION.44333 16446 Information not available 07/12/2022 What Type Of Diet Are You Following? CARBOHYDRATE Low Carb MIGRATION.29080 58475 Information not available 07/12/2022 Which Illicit Or Recreational Drugs Have You Used? None MIGRATION.38322 93144 Information not available 07/12/2022 Do You Or Have You Ever Used E-cigarettes Or Vape? Never Used Electronic Cigarettes MIGRATION.60084 67208 Information not available 07/12/2022 What Is The Highest Grade Or Level Of School You Have Completed Or The Highest Degree You Have Received? [id number] MIGRATION.77709 23066 Information not available 07/12/2022 What Is Your Occupation? Disabled MIGRATION.23008 59548 Information not available 07/12/2022 Have There Been Any Changes To Your Family Or Social Situation? Yes Break Up MIGRATION.66977 20252 Information not available 07/12/2022 What Is The Fluoride Status Of Your Home? Unknown MIGRATION.88866 44472 Information not available 07/12/2022 Are There Any Guns Present In Your Home? No MIGRATION.65212 53906 Information not available 07/12/2022 Do You Use Insect Repellent Routinely? No MIGRATION.66194 95639 Information not available 07/12/2022 Where Do You Live? [place] MIGRATION.76746 38211 Information not available 07/12/2022 What Was The Date Of Your Most Recent Tobacco Screening? 01/31/2023 Information not available 01/31/2023 Do You Have Any Pets? Yes MIGRATION.03810 18673 Information not available 07/12/2022 What Is Your Relationship Status? Single MIGRATION.75641 00515 Information not available 07/12/2022 Do You Use Your Seat Belt Or Car Seat Routinely? Yes MIGRATION.56287 40268 Information not available 07/12/2022 Do You Have Smoke And Carbon Monoxide Detectors In Your Home? Yes MIGRATION.77249 98056 Information not available 07/12/2022 Are You Passively Exposed To Smoke? Yes MIGRATION.72147 99541 Information not available 07/12/2022 Do You Or Have You Ever Used Smokeless Tobacco? Never Used Smokeless Tobacco MIGRATION.76431 26303 Information not available 07/12/2022 Are There Any Smokers In Your House? No MIGRATION.35647 98963 Information not available 07/12/2022 How Much Tobacco Do You Smoke? No MIGRATION.16663 88356 Information not available 07/12/2022 Do You Feel Stressed (tense, Restless, Nervous, Or Anxious, Or Unable To Sleep At Night)? TR1050-2 MIGRATION.14804 34960 Information not available 07/12/2022 Do You Use Any Illicit Or Recreational Drugs? No MIGRATION.11961 36132 Information not available 07/12/2022 Do You Use Sunscreen Routinely? No MIGRATION.38073 95373 Information not available 07/12/2022 How Many Years Have You Smoked Tobacco? 0 MIGRATION.68714 92753 Information not available 07/12/2022 Have You Recently Traveled Abroad? No MIGRATION.14618 50028 Information not available 07/12/2022 Sex: Male Functional Status Question Answer Note LastModified by Organizat ion Details LastModified Time What is your exercise level? Occasional MIGRATION.[id number] 26 Information not available 07/12/2022 Mental Status None recorded. Family History Relationship Description Onset Age of this Age Resolved Age Notes LastModified by Organization Details LastModified Time Mother Malignant tumor of colon deceas ed MIGRATION.626 [id number] Not available 07/12/2022 00:43:23 Mother Diabetes mellitus MIGRATION.559 [id number] Not available 07/12/2022 00:43:23 Unspecified Relation Family history of Hypertension both sides MIGRATION.558 [id number] Not available 07/12/2022 00:43:23 Medical History Condition Response CHEST XRAY N BLINDNESS N NERVE DISEASE Y BLADDER PROBLEMS N OTHER # 1 Y POLIO N LUNG DISEASE/DISORDER N RADIATION / CHEMOTHERAPY N COPD N Other # 2 N BLOOD DISEASES N SURGERY N EAR OR HEARING PROBLEMS N DEPRESSION (INCLUDING POST ) Y FEMALE PROBLEMS / INFECTIONS N BOWEL PROBLEMS N STROKE/TIA N CHEST CT N ULCERS N RENAL INSUFFICIENCY N BENIGN PROSTATIC HYPERPLASIA N TB SKIN TEST N MYOCARDIAL INFARCTION N OBESITY N EXCESSIVE PERSPIRATION N GERD/NAUSEA Y ANEURYSM N URINARY/BLADDER/KIDNEY PROBLEMS N INPATIENT PSYCH [...] DISEASE N PULMONARY DISEASE N GOUT N ALZHEIMER'S DISEASE N SLEEP DISORDER N FATIGUE N DEMENTIA N HERPES N RETINOPATHY N HEADACHES/MIGRAINES N SEIZURES/EPILEPSY N SLEEP STUDY N VASCULAR DISEASE N DIZZINESS N HEAD TRAUMA OR INJURY N HEART DISEASE/HEART PROBLEMS N KIDNEY DISEASE N MULTIPLE SCLEROSIS N PULMONARY FUNCTION TEST N CARDIAC ARRHYTHMIA Y CANCER: SPECIFY N ANESTHESIA COMPLICATIONS N PNEUMONIA N ATRIAL FIBRILLATION N PULMONARY EMBOLISM N AUTOIMMUNE DISEASE N Immunizations Vaccine Type Date Status Note Provider Nam e and Address Organization Details Recorded Time Influenza, MDCK, quadrivalent, PF 0 completed Hilda Morel APRN [address], [address], [place], [address], [employer] [facility] [employer] 09/17/2023 08:05:42 COVID-19, mRNA, LNP-S, PF, 100 mcg/0.5mL dose or 50 mcg/0.25mL dose 1 completed Hilda Morel APRN [address], [address], [place], [address], [employer] [facility] [employer] 09/17/2023 08:05:42 COVID-19, mRNA, LNP-S, PF, 100 mcg/0.5mL dose or 50 mcg/0.25mL dose 1 constance Morel APRN [address], [address], [place], [address], [employer] [facility] [employer] 09/17/2023 08:05:42 COVID-19, mRNA, LNP-S, bivalent, PF, 30 mcg/0.3 mL dose [address], [place], [address], [facility] [employer] [facility] 09/17/2023 08:05:42 influenza, unspecified formulation [address], [place], [address], [facility] [employer] [facility] 09/17/2023 08:05:43 Tdap [address], [place], [address], [facility] [employer] [facility] 09/17/2023 08:05:43 Tdap [address], [place], [address], [facility] [employer] [facility] 09/17/2023 08:05:43 tetanus toxoid, adsorbed [address], [place], [address], [facility] [employer] [facility] 09/17/2023 08:05:43 Influenza, split virus, quadrivalent, PF [address], [place], [address], [facility] [employer] [facility] 09/17/2023 08:05:43 Influenza, split virus, quadrivalent, PF [address], [place], [address], [facility] [employer] [facility] 09/17/2023 08:05:43 Influenza, split virus, quadrivalent, PF [address], [place], [address], [facility] [employer] [facility] 09/17/2023 08:05:43 Influenza, split virus, quadrivalent, PF 2 completed Hilda Morel APRN [address], [place], [address], [facility] [employer] [facility] 09/17/2023 08:05:43 influenza, unspecified formulation 2 completed Hilda Morel APRN [address], [place], [address], [facility] [employer] [facility] 09/17/2023 08:05:43 COVID-19, mRNA, LNP-S, PF, 30 mcg/0.3 mL dose [address], [place], [address], [facility] [employer] [facility] 09/17/2023 08:05:42 Influenza, split virus, quadrivalent, preservative [address], [place], [address], [employer] [facility] [employer] [facility] 09/17/2023 08:05:42 tetanus toxoid, unspecified formulation 1 completed Not Available [facility] 10/19/2022 09:39:50 COVID-19, mRNA, LNP-S, PF, 100 mcg/0.5mL dose or 50 mcg/0.25mL dose [address], [place], [address], [facility] [employer] [facility] 09/17/2023 08:05:42 zoster recombinant 0 completed [address], [place], [address], [facility] [employer] [facility] 09/17/2023 08:05:42 Influenza, split virus, quadrivalent, preservative 0 completed Hilda Morel APRN [address], [place], [address], [facility] [employer] [facility] 09/17/2023 08:05:42 zoster recombinant 0 completed Hilda Morel, HALL TENDER [address], [place], [address], [facility] 09/17/2023 08:05:42 Influenza, split virus, quadrivalent, PF 1 completed Not Available [facility] 10/19/2022 09:39:50 pneumococcal polysaccharide PPV23 0 completed Not Available [facility] 10/19/2022 09:39:50 Past Encounters Encounter ID Performer Location Encounter Start Date Encounter Closed Date Diagnosis/Indication Diagnosis SNOMED-CT Code Diagnosis ICD10 Code Diagnosis Note [id number] VINNIE Grissom S[facility] Internal Med [facility] [address] [place] [address] 07/29/2020 00:00:00 07/29/2020 12:49:19 [id number] Nicholas rodriguez MD [facility] Internal Med [facility] [address] [place] [address] , [place] [address] 10/13/2020 00:00:00 11/11/2020 17:16:57 [id number] [facility] [place] [address] [address], [address] [place] [address] 10/20/2020 00:00:00 10/20/2020 14:00:37 [id number] [facility] [place] [address] [address], [address] [place] [address] 11/19/2020 00:00:00 11/19/2020 14:47:24 [id number] Nicholas rodriguez MD [facility] Internal Med [facility] [address] [place] [address] 01/31/2021 00:00:00 01/31/2021 14:10:02 [id number] [facility] [place] [address] [facility] [address] [place] [address] 02/23/2021 00:00:00 02/23/2021 15:04:13 [id number] Nicholas rodriguez MD [facility] [address] [place] [address] [place] [address] 04/25/2021 00:00:00 04/25/2021 13:11:03 [id number] [facility] Pulmon[facility] [place] [address] [place] [address] 06/01/2021 00:00:00 06/01/2021 16:22:35 [id number] Nicholas rodriguez MD [facility] [address] [place] [address] y , [place] [address] 08/03/2021 00:00:00 08/03/2021 13:19:02 [id number] [facility] Pulmon[facility] [place] [address] [place] [address] 08/03/2021 00:00:00 08/03/2021 11:45:55 [id number] [facility] Podiatry [place] [address] [facility] [address] [place] [address] 08/22/2021 00:00:00 08/23/2021 11:01:51 [id number] Belinda Alonzo SSRS REPORT DEVELOPER- [facility] Pul[facility] [place] [address] [place] [address] 2021 00:00:00 2021 13:52:34 [id number] Nicholas rodriguez MD S[facility] Internal Med [facility] [address] [place] [address] , [facility] [address] [place] [address] 11/17/2021 00:00:00 11/17/2021 11:06:30 [id number] Nicholas rodriguez MD [facility] Internal Med [place] [address] [facility] [place] [address] 01/11/2022 00:00:00 01/11/2022 13:46:47 [id number] Nicholas rodriguez MD [facility] Internal Med [facility] [address] [place] [address] 06/06/2022 00:00:00 06/06/2022 16:36:20 [id number] Belinda Alonzo, [facility] Pulmonolo gy [place] [address] [place] [address] 06/20/2022 00:00:00 06/20/2022 11:54:13 [id number] Nicholas rodriguez MD [facility] Internal Med [place] [address] [facility] [place] [address] 09/27/2022 14:06:36 09/27/2022 14:50:02 Paroxysmal atrial fibrillation 739789273 I48.0 on cardizem, xarelto, digoxin, follows cardiology - Dr. Fang referral to Dr. Zleaya as requested Congestive heart failure 80152107 I50.9 as above Morbid obesity 117379645 E66.01 he has decided against bariatric surgeryHe is considerin g surgery again, he wants to do some research as to where he would like to be referred and he will call us when he is ready for a referralco ntinue diet/exerc ise efforts Polyneuropathy 78135167 G62.9 follows neurology- ESTEBAN Rizvi at [facility] t a new neurology referral per his request-Dihn Winter with [facility] Essential hypertension 18162268 I10 on lisinopril , lasix, follows cardiology as above Testostero ne level below reference range 853541413 R89.1 on testostero ne, follows urology- Dr. Dunham Obstructiv e sleep apnea syndrome 68020690 G47.33 on CPAP- follows pulm for compliance - Belinda Alonzo Peripheral vascular disease 042069000 I73.9 follows cardiology as aboveappt with podiatry as above Type 2 roro betes mellitus 54864116 E11.9 now off metformin, working on lifestyle measuresvivian deluca podiatry for foot care Vitamin D deficiency 347 41798 E55.9 on supplement Vitamin B1 2 deficiency (non anemic) 11799204 E53.8 on supplement Gastroesop hageal reflux disease 610892214 K21.9 on omeprazole Major depr essive disorder 750394156 F32.9 on sertraline call office if any change in mood or behaviorde clines psychiatry referral at this time Asthma 911512849 J45.90 9 on Trelegy, follows pulm as above, on home O2 of 5L with activity and at night Hyperlipidemia 68592354 E78.5 on rosuvastat in Iron defic iency anemia 01325477 D50.9 on supplement now following hematology - Dr. Carrillo- has his 1st appointmen t later this month Dry skin dermatitis 2600 54921 L85.3 on ammonium lactate lotion to BLE Proteinuria 92075718 R80 .9 follows nephrology - Dr. Santana/George ack Foot callus 383837279 L8 4 get appt with podiatry as above [id number] Belinda Alonzo, SSRS REPORT DEVELOPER- [facility] Pulmonolo gy [place] [address] [place] [address] 12/19/2022 14:07:55 12/19/2022 15:08:45 Chronic hypercapnic respiratory failure 089963806 J96.12 PFT 10/2022 with FEV1 31%CO2 inpatient [...] at rest Chronic ob structive pulmonary disease 14501658 J44.9 PFT 03/2020 through [facility] with FEV1 40%Repeat 10/2022 with FEV1 31% - in chartConti nue Bevespi and FloventHe is aware to rinse and spitDiscus sed reportable signs and symptomsRT C in 3-4 weeks, PRN for concernsOr jade for POC with strap today Dependence on supplemental oxygen 3107633001 07 Z99.81 He has good use and benefit Obstructiv e sleep apnea syndrome 34131577 G47.33 NIV order as above [id number] Nicholas rodriguez MD S_G Internal Med [place] [address] [place] [address] 01/31/2023 10:36:22 01/31/2023 11:36:45 Paroxysmal atrial fibrillation 472123977 I48.0 on cardizem, xarelto, digoxin, follows cardiology - Dr. Zelaya Congestive heart failure 71436452 I50.9 as aboveon lasix and spironolac tone from cardiology Morbid obesity 005117279 E66.01 he has decided against bariatric surgeryHe is considerin g surgery again, he wants to do some research as to where he would like to be referred and he will call us when he is ready for a referralco ntinue diet/exerc ise efforts Polyneuropathy 22555352 G62.9 follows neurology- -Lizzie Winter with [facility] Essential hypertension 47981567 I10 on lisinopril , lasix, follows cardiology as above Testostero ne level below reference range 484605813 R89.1 on testostero ne, follows urology- Dr. Dunham Obstructiv e sleep apnea syndrome 30340645 G47.33 on CPAP- follows pulm for compliance - Belinda Alonzo Peripheral vascular disease 379669748 I73.9 follows cardiology as aboveappt with podiatry as above Type 2 roro betes mellitus 78408732 E11.9 now off metformin, working on lifestyle measuresfo sandrine podiatry for foot care Vitamin D deficiency 347 22528 E55.9 on supplement Vitamin B1 2 deficiency (non anemic) 58040636 E53.8 on supplement Gastroesop hageal reflux disease 879068059 K21.9 on omeprazole Major depr essive disorder 885339459 F32.9 on sertraline call office if any change in mood or behaviorde clines psychiatry referral at this time Asthma 397368886 J45.90 9 on Trelegy, follows pulm as above, on home O2 of 5L with activity and at night Hyperlipidemia 87007329 E78.5 on rosuvastat in Iron defic iency anemia 46866569 D50.9 on supplement now following hematology - Dr. Carrillo Dry skin dermatitis 2600 11503 L85.3 on ammonium lactate lotion to BLE Proteinuria 93068008 R80 .9 follows nephrology - Dr. Santana/George aclupe Foot callus 781415687 L8 4 get appt with podiatry as above Pain of le ft shoulder joint 4444127833 3941585 M25.512 He will call us with the name of the Ortho he wants to see, he does not want a referral at this time, wants to find someone in [place] or [facility] Concerns Section Related Observation LastModified by Organization Detai ls LastModified Time None Recorded Concern Status LastModified by Organization Details LastModified Time None Recorded Advance Directives Directive Y: living will Payers Encounter Date Sequence Insurance Name Policy Number Policy Marroquin Covered Member ID Marroquin Member ID Guarantor Name 09/27/2022 1 [facility] [place] [place]MEDICARE - MEDICAID REPLACEMENT HMO) [id number] Justo Hancock Jr [id number] Justo Hancock 12/19/2022 1 [employer] [employer] [facility] [facility] [facility] [place] [place] - MEDICAID REPLACEMENT HMO) [id number] Justo Shaina Hookbraxton Harry [id number] Justo Hancock 01/31/2023 1 [employer] [facility] [facility] [facility] [place] [place] - MEDICAID REPLACEMENT HMO) [id number] Justo Hancock Jr [id number] Justo Hancock Notes Date Note Type Note [...] Zelaya for cardiology and Lizzie Best in [place] for neurology. He follows up again with [...] due for lab work today. Jeniffer Veras, SSRS REPORT DEVELOPER-C [address] [facility], [facility] [address], [place], [address], [employer] 09/27/2022 15:25:53 12/19/2022 text/html Mr Hancock present [...] is unable to lie flat Belinda Alonzo, SSRS REPORT DEVELOPER-BC [address] [facility], [address], [place], [address], [employer] 12/19/2022 15:55:31 01/31/2023 text/html This is a telehe alth visit conducted via telephone audio only. Patient agrees to telehealth visit. Justo presents today via telephone audio for follow-up. He was unable to make it into the office as he was unable to get a ride. He was hospitalized at [facility] beginning of December for acute on chronic respiratory failure and CHF. He was placed on BiPAP. He had never had to be intubated. He is now on home BiPAP. He did get set up with his new toilet attendant, Dr. Zelaya. He reports they started him [...] person he wants to see. Jeniffer Veras, SSRS REPORT DEVELOPER-C [address] [facility] [address], [place], [address], [place] [facility] 01/31/2023 14:04:00
--- OUTSIDE RECORDS SUMMARY | 2024-09-19 10:06 | XMS_ITS | Clinical Summary ---
Author Organization [facility] Brad urrutia [facility] Address [address] [place] [address] Care Team Providers Care Intel Analyst Name Role Phone Unavailable Primary Care Provider Unavailabl e Encounters Date Type Department Care Team Description 07/17/2024 Abstract [facility] Bariatrics and General Surgery at the [facility] [address] [place] [address] [address] [place] [address] Marjorie Brown MD 07/17/2024 Chart Note [facility] Bariatrics and General Surgery at the [address] [place] [address] Marjorie Brown MD from Last 3 Months [...] Description 12/31/2024 11:30 AM CDT Office Visit [facility] Bariatrics and General Surgery at the [address] [place] [address] Marjorie Brown MD [address] [place] [address] Rd [address] [place] [address] Health Maintenance Due Date Last Done Comments [...]
[2024-09-19 10:20] LABS: Basophils Absolute Auto 0.07 K/mm3 (0.00-0.10); Basophils Percent Auto 0.6 % (0.0-1.0); Eosinophils Absolute Auto 0.65 K/mm3 (0.02-0.50); Eosinophils Percent Auto 5.6 % (1.0-6.0); Hemoglobin 11.8 g/dL (14.0-18.0); Immature Granulocyte Absolute 0.08 K/mm3 (0.00-0.00); Immature Granulocyte Percent A 0.7 % (0.0-0.0); Lymphocytes Absolute Auto 1.27 K/mm3 (1.10-4.50); Mean Corpuscular HGB Conc 31.1 g/dL (32-36); Mean Corpuscular Hemoglobin 28.2 pg (27.0-31.0); Mean Corpuscular Volume 90.9 fL (78.0-102.0); Mean Platelet Volume 10.4 fl (8.7-11.0); Monocytes Absolute Auto 0.53 K/mm3 (0.10-0.90); Monocytes Percent Auto 4.6 % (2.0-11.0); Neutrophils Absolute Auto 8.91 K/mm3 (1.70-7.20); Neutrophils Percent Auto 77.5 % (50.0-70.0); Nucleated Red Blood Cells Absolute Auto 0.03 K/mm3 (0.00-0.00); Nucleated Red Blood Cells Perc 0.3 % (0-0.0); Platelet Count Result 255 K/mm3 (150-420); Red Blood Count 4.18 M/mm3 (4.70-6.10); Red Cell Distribution Width 14.6 % (11.6-14.4); White Blood Count 11.5 K/mm3 (4.8-10.8)
[2024-09-19 12:00] LABS: Alanine Aminotransferase 44 U/L (16-63); Albumin Level 4.4 g/dL (3.4-5.0); Alkaline Phosphatase 118 U/L (46-116); Anion Gap 14 mmol/L (4-12); Aspartate Amino Transferase 25 U/L (15-37); Bilirubin,Total 0.8 mg/dL (0.00-1.00); Blood Urea Nitrogen 25 mg/dL (7-18); CRP 4.9 mg/dL (0.0-0.9); Calcium 9.4 mg/dL (8.5-10.1); Carbon Dioxide 20 mmol/L (21-32); Chloride 97 mmol/L (98-108); Estimated Glomerular Filt Rate > 60; Glucose 100 mg/dL (70-99); Osmolality Calculated 276 mOsm/kg (285-295); Potassium 4.6 mmol/L (3.5-5.1); Sodium 131 mmol/L (136-145); Total Protein 8.1 g/dL (6.4-8.2)
== END 2024-09-19 10:02 | disposition home or self-care (01) ==
LOC: CHSLAB 10:02
PROVIDERS: PCP Nurse Practitioner Family; Visit Provider Nurse Practitioner Family
DX: L08.9 Local infection of the skin and subcutaneous tissue, unspecified (principal); R60.0 Localized edema
CPT/HCPCS: 36415; 80053; 85025; 86140; 93971

== ENCOUNTER 2024-10-10 01:09 | Day surgery (SDC) | payer MEDICARE, MEDICAID, SELFPAY ==
[2024-09-18 09:51] VITALS: BMI 42.3
--- NOTE | 2024-09-25 09:42 | PC.NURSE ---
Spoke with patient regarding medication Xarelto. Patient verbalizes understanding that the last dose is to be taken on 09/26/2024 and the Endoscopist will instruct them when to restart after the procedure.
--- OUTSIDE RECORDS SUMMARY | 2024-09-29 01:39 | XMS_ITS | CONTINUITY OF CARE DOCUMENT ---
Author Name grantkurtis, grantkurtis Address Unknown Organization [facility] Address [address] [address] [place] [address] Phone [phone] Care Team Providers Care Operational Communication Chief Name Role Phone Sadi RICKS, Woo Unavailable ALFONSO MACIAS Unavailable [phone] HOPALFONSO RUSS Unavailable [phone] PROBLEMS Condition Status Date Provider Notes Hyperlipidemia;with [...] In-person encounter Office Visit Woo Avitia MD [facility] - In-person encounter Office Visit Woo Avitia MD [facility] Chest painCOPD - on O2 - In-person encounter Office Visit Woo Avitia MD [facility] [place] - In-person encounter Office Visit Ganga Zavala MD [facility] Shortness of breath - In-person encounter Office Visit Shravan Mahmood MD [facility] Elevated glucoseAnemia, iron deficiency and folate defPREDIABETES; - In-person encounter Office Visit Woo Avitia MD [facility] FENG - On CPAP - In-person encounter Office Visit Alexei Kurtz MD [facility] AfibLeg edemaExposure to SARS-associated coronavirus;neg igg - In-person encounter Office Visit Woo Avitia MD [facility] HTN essentialMorbid obesityAsthmaOSA - On CPAPDiastolic CHF VITAL SIGNS Date Observation Value Provider Body Mass Index (Ratio) 53.83 kg/m2 Olegario b Nacht blood pressure, diastolic 73 mm[Hg] Li nkLogic blood pressure, systolic 151 mm[Hg] Allyson kLogic Inhaled O2 5 L/min Lucretia Wanblee blood pressure, diastolic 73 mm[Hg] Ca therine Andrea blood pressure, systolic 151 mm[Hg] Cat herine Andrea oxygen saturation, oximetry 98 % Lucretia Wanblee respiratory rate E&M 16 /min Catheri ne Andrea pulse rate 78 /min Lucretia Wanblee weight E&M 386 [lb_av] Lucretia Wanblee blood pressure, cuff size large Ca therine Wanblee height E&M 71 [in_i] Lucretia Wanblee Body Mass Index (Ratio) 47.14 kg/m2 Teresa [...] [lb_av] Meghana Gruenenfe [facility] height E&M 71 [in_i] Meghana Gruenenfe [facility] Body Mass Index (Ratio) 53.27 kg/m2 Linda Mahmood MD pulse rate 97 /min [facility] blood pressure, diastolic 82 mm[Hg] Br ittany Block blood pressure, systolic 138 mm[Hg] Eugenia ttany [facility] oxygen saturation, oximetry 94 % [facility] weight E&M 382 [lb_av] [facility] respiratory rate E&M 16 /min [facility] height E&M 71 [in_i] [facility] Body Mass Index (Ratio) 52.85 kg/m2 [...] [in_i] Meghana Gruenenfe [facility] height E&M 71 [in_i] Woo Avitia MD Body Mass Index (Ratio) 54.25 kg/m2 Jonathon Faye oxygen saturation, oximetry 94 % [facility] pulse rate 81 /min [facility] respiratory rate E&M 18 /min [facility] blood pressure, diastolic, left arm 86 mm [Hg] [facility] blood pressure, systolic, left arm 140 mm [Hg] [facility] blood pressure, diastolic, right arm 81 m m[Hg] [facility] blood pressure, systolic, right arm 138 m m[Hg] [facility] blood pressure, diastolic 86 mm[Hg] [facility] blood pressure, systolic 140 mm[Hg] [facility] temperature E&M 98.4 [degF] [facility] temperature site temporal [facility] weight E&M 389 [lb_av] [facility] height E&M 71 [in_i] [facility] blood pressure, diastolic 104 mm[Hg] [facility] blood pressure, systolic 177 mm[Hg] [facility] blood pressure, resting Yes [facility] oxygen saturation, oximetry 95 % [facility] respiratory rate E&M 18 /min [facility] pulse rate 61 /min [facility] Body Mass Index (Ratio) 53.69 kg/m2 [facility] weight in kilograms E&M 174.63 kg [facility] weight E&M 385 [lb_av] [facility] temperature in centigrade E&M 37.17 Kathy [facility] temperature E&M 98.9 [degF] [facility] height in centimeters E&M 180.34 cm [facility] height E&M 71 [in_i] [facility] ALLERGIES Allergy Name Onset Date Reaction [...] iron binding capacity, total 409 ug/dL [facility] 007-271 0819/11 /21 free thyroxine index 1.4 [facility] 1.2-4.9 [...] [facility] 0-149 cholesterol, serum 173 mg/dL [facility] 178-652 4472/11 /21 basophil count, absolute 0.0 x10E3/uL [facility] [...] Not Estab. platelet count 232 X10E3/UL [facility] 890-780 9997/11 /21 red blood cell distribution width 14.8 [...] [facility] 39-117 bilirubin, serum, total 0.5 mg/dL [facility] 0.0-1.2 albumin/globulin ratio, serum 1.5 [facility] 1.2-2.2 globulin, serum 2.9 [facility] 1.5-4.5 albumin, serum 4.4 g/dL [facility] 3.8-4.9 protein, total, serum 7.3 g/dL [facility] 6.0-8.5 calcium, serum 9.5 mg/dL [facility] 8.7-10.2 carbon dioxide, venous blood 28 mmol/L [facility] 20-29 chloride, serum 97 mmol/L [facility] 96-106 potassium, serum 4.7 mmol/L [facility] 3.5-5.2 sodium, serum 139 mmol/L [facility] 030-081 3723/11 /21 urea nitrogen/creatinine ratio, serum 15 [facility] 9-20 eGFR if 107 mL/min/{1.7 3_m2} [facility] >59 eGFR if not 92 mL/min/{1.7 3_m2} [facility] >59 creatinine, serum 0.94 mg/dL [facility] 0.76-1.27 urea nitrogen, blood 14 mg/dL [facility] 6-24 blood glucose, random 104 mg/dL [facility] 65-99 High digoxin level, serum 0.49 ng/mL [facility] troponin I <0.012 [facility] B-type natriuretic peptide 303 pg/mL [facility] thyroid stimulating hormone, serum 2.660 u[IU]/mL [facility] platelet count 180 10*3/uL [facility] red blood cell distribution width 15.1 % [facility] mean corpuscular hemoglobin concentration, RBC 30.6 g/dL [facility] mean corpuscular hemoglobin, RBC 27.5 pg [facility] mean corpuscular volume, RBC 89.9 fL [facility] hematocrit, blood 36.6 % [facility] hemoglobin, blood 11.2 g/dL [facility] erythrocyte (RBC) count 4.07 10*6/mm3 [facility] leukocyte count, blood 7.4 10*3/mm3 [facility] triglyceride, serum, fasting 99 mg/dL [facility] HDL cholesterol, serum 53 mg/dL [facility] LDL cholesterol, serum 107 mg/dL [facility] cholesterol, serum 180 mg/dL [facility] protein, total, serum 6.5 g/dL [facility] albumin, serum 3.5 g/dL [facility] bilirubin, serum, total 0.50 mg/dL [facility] alkaline phosphatase, serum 80 1/L [facility] alanine aminotransferase (SGPT), serum 18 1/L [facility] aspartate aminotransferase (SGOT), serum 22 1/L [facility] magnesium, serum 1.9 mg/dL [facility] calcium, serum 8.9 mg/dL [facility] blood glucose, random 119 mg/dL [facility] creatinine, serum 0.58 mg/dL [facility] urea nitrogen, blood 14 mg/dL [facility] carbon dioxide, serum, total 30 mmol/L [facility] chloride, serum 98 mmol/L [facility] potassium, serum 3.6 mmol/L [facility] sodium, serum 134 mmol/L [facility] HISTORY OF MEDICATION USE Medication Status [...] mcg HFA aerosol inhaler completed 11/04 - Aaliayh Arceo dofetilide 250 mcg capsule completed Take [...] once a day 05/29 - 07/21 Woo Avtiia MD #30, 30 days supply, Prescribed by BOBBY SÁNCHEZ, Filled 02/17/2020 TESTOSTERONE CYPIONATE 200 MG/ML INTRAMUSCULAR SOLUTION completed 12/24 - 12/24 Meghana Casillsa #3, 28 days supply, Prescribed by ARELY [...] Payer name Policy type / Coverage type [facility] [employer] Medicaid 3 [id number] ADVANCE DIRECTIVES Name Date LIVING WILL ON FILE TREATMENT PLAN Date Name Performer [id number],S, N o recurrence. He continues on Magnesium and uses oxygen. Woo Avitia MD [id number],S, C ontinues on Lipitor. We aim for an LDL <70. Woo Avitia MD [id number],S, D enies of any chest pain. If there is recurrence of chest pain, will need a cardiac cath. Woo Avitia MD [id number],S, C ontinues on O2. Followed by pulmonary. Continues on bronchodilators. Woo Avitia MD [id number],S, M inimal palpitation burden. He continues on Dofetiliide and Diltiazem. On Xarelto for usp OAC. Woo Avitia MD [id number],S, C ontinues on Lasix 40mg daily. Woo Avitia MD [id number],S, T he patient is using CPAP on a regular basis. The patient has been benefiting from therapy and should continue use. He is planning to ask his respiratory therapist about the Inspire device for sleep apnea. Woo Avitia MD [id number],S, W eight loss advised. Woo Avitia MD [id number],S, C ompensated. Continues on Lasix 40mg daily. Woo Avitia MD [id number],S, R easonably well controlled. Advised reduced sodium intake and routine monitoring of the blood pressure. We aim for blood pressure less than 130/80. Continues on his current regimen. Woo Avitia MD [id number],S, T he patient is using CPAP on a regular basis. The patient has been benefiting from therapy and should continue use. Woo Avitia MD [id number],S, L E swelling with pigementation changes. Uses ammonium lactate ointment. Woo Aviita MD [id number],S, C ontinues on Lipitor. We aim for an LDL <70. Woo Avitia MD [id number],S, N o recurrence. He continues on Magnesium and uses oxygen. Woo Avitia MD [id number],S, C ontinues on O2. Followed by pulmonary. Continues on bronchodilators. Woo Avitia MD [id number],S, M inimal palpitation burden. He continues on Dofetiliide and Diltiazem. 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 In SR today. Woo Avitia MD [id number],S, S table on continuous O2. Currently on 5L at home. He was advised to increase to 6L as needed for activity. Woo Avitia MD [id number],S, O ff Metformin. Reduced intake of carbohydrates and sugars advised. Woo Avitia MD [id number],S, C ontinues on Lipitor. We aim for an LDL <70. Woo Avitia MD [id number],S, T he patient is using CPAP on a regular basis. The patient has been benefiting from therapy and should continue use. Woo Avitia MD [id number],S, W eight loss advised. He has lost 52 lbs in the last year or so. Woo Avitia MD [id number],S, A dvised reduced sodium intake and routine monitoring of the blood pressure. We aim for blood pressure less than 130/80. Continues on his current regimen. Woo Avitia MD [id number],S, C ompensated. Continues on Lasix 40mg daily. Woo Avitia MD [id number],S, C ontinues on O2. Followed by pulmonary. Continues on bronchodilators. Woo Avitia MD [id number],S, N o recurrence. He continues on Magnesium and uses oxygen. Woo Avitia MD [id number],S, L ast week he had an episode [...] on Dofetiliide and Diltiazem. 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 Woo Avitia MD [id number],C,W eight loss advised. He has lost 31 lbs by implementing dietary changes. Woo Avitia MD [id number],C,T he patient is using CPAP on a regular basis. The patient has been benefiting from therapy and should continue use. Woo Avitia MD [id number],C,O n Metformin. Reduced intake of carbohydrates and sugars advised. Woo Avitia MD [id number],C,A dvised reduced sodium intake and routine monitoring of the blood pressure. We aim for blood pressure less than 130/80. Continues on his current regimen. Woo Avitia MD [id number],C,C ontinues on O2. Followed by pulmonary. Continues on bronchodilators. Recently started on Bevespi. Woo Avitia MD [id number],C,D enies of any chest pain. If there is recurrence of chest pain, will need a cardiac cath. Woo Avitia MD [id number],C,N o recurrence. He continues on Magnesium and uses oxygen. Woo Avitia MD [id number],C,R eports 6-7 very short episodes of palpitations in the past 4 months. He continues on Dofetiliide and Diltiazem. 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 Woo Avitia MD Telehealth, 6 month [...] on Dofetiliide and Diltiazem. 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 Woo Avitia MD Telehealth, 6 month [...] on Dofetiliide and Diltiazem. 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 In SR today. Woo Avitia MD [...] on Dofetiliide and Diltiazem. 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 Woo Avitia MD Telehealth:Weight lo ss [...] on Dofetiliide and Diltiazem. On Xarelto for usp OAC. Woo Avitia MD Telehealth:Weight loss advised [...] on Dofetiliide and Diltiazem. On Xarelto for usp OAC. [facility] abdirizak TeleHealth:On Metformin. Danny Avitia [...] Cardizem CD 240mg daily. 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 Woo Avitia MD TeleHealth:Recently started on 4L O2 by pulmonary. Continues on bronchodilators. Woo Avitia MD TeleHealth:Improved on continuous O2. Currently on 4L at home. I advised him that he may benefit from increasing the O2 to 5L with activity. Woo Avitia MD Telehealth:No recurr ence s/p DEVON/CV. He continues on his current regimen. On Xarelto for usp OAC. [facility] Telehealth:Remains s hort of breath. [...] minute walk to determine need for oxygen. [facility] Follow up :The patient is using CPAP on a regular basis. The patient has been benefiting from therapy and should continue use. [facility] Follow up :Weight los s advised [facility] Follow up :Clinically compensated. [facility] Follow up :If there is recurrence of VT, would repeat stress test. [facility] Follow up :Continues on Lipitor. We aim for an LDL <70. Recent A1c 85. [facility] Follow up :Blood pressure elevated. Advised reduced sodium intake and routine monitoring of the blood pressure. We aim for blood pressure less than 130/80. He continues on Lisinopril, Cardizem, and Lasix. [facility] Follow up :s/p DEVON/CV remains in sinus rhythm. Continues on Digoxin and Cardizem. 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 [facility] Follow up :One 4 second [...] tab with evening meal. Orders: E KG (CPT-69331) C ardioversion - [facility] (CPT-25670) Ganga Zavala MD Cardiology Shravan Mahmood MD [...] ntake of carbohydrates and sugars advised. [facility] Telehealth:Awaiting new CPAP. Hemanth michelle [facility] Telehealth:Weight loss advised Heike back [facility] Telehealth:Continues on Lisinopril 40mg daily. Advised reduced sodium intake and routine monitoring of the blood pressure. We aim for blood pressure less than 130/80. [facility] Telehealth:Denies of any shortness of breath. He continues on Lasix. [facility] Telehealth:Denies of any palpitations. Advised to continue on anticoagulation with Xarelto. Will have the office try to assist with cost. [facility] Telehealth:Small, mi ld, apical wall defect consistent with ischemia seen on recent stress test. He is asymptomatic at this time therefore will hold off on further investigations. The patient is agreeable to continue with medical management. [facility] Cardiology:Had recen t split night study. Will f/u with Dr. Avitia. [facility] Cardiology:BP today: 140/86 P rior BP: 177/104 (10/15/2019) His updated medication list for this problem includes: Lasix 40 Mg Oral Tablet (Furosemide) ..... One tab by mouth daily Lisinopril 40 Mg Oral Tablet (Lisinopril) ..... Take 1 tablet by mouth every day [facility] Cardiology:Per recor ds from [facility], pt had elevated HgA1c of 6.1% recently. Will check HgA1c again. [facility] Cardiology:He has le g swelling and [...] ulcer C 6 : Active venous ulcer [facility] Cardiology:Pt had an admission in September with respiratory failure requiring intubation. Pt had an admission last week to [facility] with complaints of SOB and was found to be in AFib (new-onset). He was cardioverted successfully. We will stop Digoxin and continue Xarelto. Will obtain regadenosine myoview . His updated medication list for this problem includes: Lasix 40 Mg Oral Tablet (Furosemide) ..... One tab by mouth daily Lisinopril 40 Mg Oral Tablet (Lisinopril) ..... Take 1 tablet by mouth every day [facility] Cardiology:Pt had an admission last week to [facility] with complaints of SOB and was found to be in AFib (new-onset). He was cardioverted successfully. We will stop Digoxin and continue Xarelto. [facility] Cardiology:CPAP is b roken per patient. [...] TSH, free T4, total T3 DLCO - 85960 FRC - 27445 FVC - 21854 Arterial Duplex Bi-L ower EX PROBNP, N [...] ed FVC / MVV with bronchodilator - 05812 Ganga Zavala MD completed BLOOD COUNT HEMOGLOBIN Ganga fuentes MD completed FRC - 03544 Ganga urrutia MD completed SpO2 w/o 6min walk/titration Ganga Zavala MD completed DLCO - 36439 Ganga urrutia MD completed EKG Ganga urrutia MD completed EKG Woo Avitia MD complet ed
--- OUTSIDE RECORDS SUMMARY | 2024-09-29 01:40 | XMS_ITS | Clinical Summary ---
Author Organization [facility] Brad urrutia [facility] Address [address] [place] [address] Care Team Providers Care Batch Unloader Name Role Phone Unavailable Primary Care Provider Unavailabl e Encounters Date Type Department Care Team Description 07/17/2024 Abstract [facility] Bariatrics and General Surgery at the [facility] [address] [place] [address] [address] [place] [address] Marjorie Brown MD 07/17/2024 Chart Note [facility] Bariatrics and General Surgery at the [address] [place] [address] Marjorie Brown MD from Last 3 Months [...] Description 12/31/2024 11:30 AM CDT Office Visit [facility] Bariatrics and General Surgery at the [address] [place] [address] Marjorie Brown MD [address] [place] [address] Rd [address] [place] [address] Health Maintenance Due Date Last Done Comments [...]
--- OUTSIDE RECORDS SUMMARY | 2024-09-29 01:40 | XMS_ITS | Clinical Summary ---
Author Organization [facility] Address [address] [place] [address] Phone Care Team Providers Care Rice Field Worker Name Role Phone Unavailable Primary Care Provider [...] the evening. 07/08/2020 Active ergocalciferol 1.25 MG (59559 UT) capsule Take 1 capsule by mouth [...] Comments Blood Pressure 112/68 06/06/2022 11:19 AM CONVENTIONAL MACHINIST Pulse 81 06/06/2022 11:19 AM CONVENTIONAL MACHINIST Temperature 36.1 C (97 F) 06/06/2022 11:19 AM CONVENTIONAL MACHINIST Respiratory Rate 22 06/06/2022 11:1 9 AM CONVENTIONAL MACHINIST Oxygen Saturation 95% 06/06/2022 11: 19 AM CONVENTIONAL MACHINIST Inhaled Oxygen Concentration - - Weight 182 kg (402 lb) 06/06/2022 11:19 AM CONVENTIONAL MACHINIST Patient in a wheelchair. Height 181.6 cm (5' 11.5) 06/06/2022 1 1:19 AM CONVENTIONAL MACHINIST Body Mass Index 55.29 06/06/2022 11:19 AM CONVENTIONAL MACHINIST Plan of Treatment Health Maintenance Due Date [...] 10.7 mg/dL Phosphorus, Serum 3.8 eGFR Non-Afr Egyptian >60 Osmolality Calc 288.0 mosm/kg Hemoglobin A1C [...]
--- OUTSIDE RECORDS SUMMARY | 2024-09-29 01:40 | XMS_ITS | Data Portability ---
Author Organization [place] [facility] Cava Grill, Main Office Address [address] [place] [address] Assessment Encounter Date Assessment Date Assessment LastModified by Organization Details LastModified Time 09/27/2022 09/27/2022 WEA- 11/17/21 Cscope- Colonoscopy 09/2020- Nyazee- WNL- repeat 2030 PSA-08/02/21 Call office if worse, ER if life threatening illness RTC 3 months He voices understanding of plan and agrees [email or web address] Not available 09/27/2022 15:24:07 12/19/2022 12/19/2022 Spent [...] him to get out of the house [email or web address] Not available 01/31/2023 14:03:14 Plan of Treatment Reminders Order Date Submit Date Provider Last Modified By Organization Details Last Modified Time Details Appointments None recorded. Lab gas panel, arterial blood 2022 023 [email or web address] 25 [facility], [address] [place], [address], 3 12:02:11 HbA1c (hemoglobin A1c), blood [address] (Lab), [address] [place], [address], 3 14:42:58 microalbumi n/creatinin e, mass ratio, urine [address] (Lab), [address] [place], [address], 14:42:58 lipid panel, serum 2022 023 [facility] (Lab), [address] [place], [address], 3 19:15:11 TSH, serum or plasma 2022 023 [facility] (Lab), [address] [place], [address], 3 19:34:59 T4, free, serum 2022 023 [facility] (Lab), [address] [place], [address], 3 19:17:26 vitamin B12 + folate, serum or blood [address] (Lab), [address] [place], [address], 3 14:42:58 vitamin D, 25-hydroxy, total, serum 2022 023 [email or web address] [facility] (Lab), [address] [place], [address], 3 14:42:58 CMP, serum or plasma 2022 023 [facility] (Lab), [address] [place], [address], 3 19:15:08 CBC w/ auto diff 2022 023 [facility] (Lab), [address] [place], [address], 3 18:21:37 Referral neurologist referral - Lizzie Morse [id number] [address] [facility], [phone] 2022 023 [email or web address] Not available 4 10:44:46 cardiologis t referral 2022 023 [email or web address] Moose Zelaya DO, [address] [facility] [address], [place], [address], 4 10:44:25 Procedures None recorded. Surgeries None recorded. Imaging None recorded. Medication Orders None recorded. Patient TargetsNo targets recorded. Patient Instructions Encounter Date Encounter Id Patient Instructions Last Modified By Organization Details Last Modified Time 01/31/2023 [id number] Due to the COVID-19 (Novel Coronavirus) pandemic, it is within this context (and with the understanding that this method of patient encounter is in the patient s best interest as well as the health and safety of other patients and the public) that [facility] provided for this patient encounter rather than a mmje-vh-ouuz visit. This patient encounter is appropriate at [...] Not available 01/31/2023 10:42:32 Reason for Referral Rate Clerk Passenger Referral for Pa roxysmal atrial fibrillation Referring Physician: Jeniffer Veras, Internal Medicine, Encounter Date: 09/27/2022 Neurologist Referral for Carmelo yneuropathy Lizzie Winter- [id number] [facility], [phone] Referring Physician: Jeniffer Veras, Internal Medicine, Encounter Date: 09/27/2022 Results Created Date Observation Date Name Description Value Unit Range Abnormal Flag Note LastModifiedBy Organization Detail LastModifiedTime 09/28/1909/27/2022 CBC/C OMPLE TE BLD COUNT W/DIF F white blood cells 8.5 x10'3 /uL 4.2-10 .8 Not Available [facility] (Lab) [address] [place], [address], 09/27/2022 18:21:37 09/28/19 23 09/27/2022 CBC/C OMPLE TE BLD COUNT W/DIF F red blood cells 3.88 x10'6 /uL 4.10-5 .80 low Not Available [facility] (Lab) [address] [place], [address], 09/27/2022 18:21:37 09/28/19 23 09/27/2022 CBC/C OMPLE TE BLD COUNT W/DIF F hemoglobin 11.4 g/dL 13.2-1 7.0 low Not Available [facility] (Lab) [address] [place], [address], 09/27/2022 18:21:37 09/28/19 23 09/27/2022 CBC/C OMPLE TE BLD COUNT W/DIF F hematocrit 37.9 % 39.3-5 0.0 low Not Available [facility] (Lab) [address] [place], [address], 09/27/2022 18:21:37 09/28/19 23 09/27/2022 CBC/C OMPLE TE BLD COUNT W/DIF F mean red cell volume 97.7 fL 80.0-9 7.0 high Not Available [facility] (Lab) [address] [place], [address], 09/27/2022 18:21:37 09/28/19 23 09/27/2022 CBC/C OMPLE TE BLD COUNT W/DIF F mean red cell hemoglobin 29.4 pg 27.0-3 3.0 Not Available [facility] (Lab) [address] [place], [address], 09/27/2022 18:21:37 09/28/19 23 09/27/2022 CBC/C OMPLE TE BLD COUNT W/DIF F mean RBC HGB concentratio n 30.1 g/dL 31.0-3 6.0 low Not Available [facility] (Lab) [address] [place], [address], 09/27/2022 18:21:37 09/28/19 23 09/27/2022 CBC/C OMPLE TE BLD COUNT W/DIF F red cell distribution width 14.7 % 11.8-1 5.5 Not Available [facility] (Lab) [address] [place], [address], 09/27/2022 18:21:37 09/28/19 23 09/27/2022 CBC/C OMPLE TE BLD COUNT W/DIF F platelets 197 x10'3 /uL 150-40 0 Not Available [facility] (Lab) [address] [place], [address], 09/27/2022 18:21:37 09/28/19 23 09/27/2022 CBC/C OMPLE TE BLD COUNT W/DIF F mean platelet volume 10.6 fL 9.0-12 .4 Not Available [facility] (Lab) [address] [place], [address], 09/27/2022 18:21:37 09/28/19 23 09/27/2022 CBC/C OMPLE TE BLD COUNT W/DIF F neutrophils 80.0 % 39.0-7 2.0 high Not Available [facility] (Lab) [address] [place], [address], 09/27/2022 18:21:37 09/28/19 23 09/27/2022 CBC/C OMPLE TE BLD COUNT W/DIF F lymphocytes 9.3 % 16.0-4 7.0 low Not Available [facility] (Lab) [address] [place], [address], 09/27/2022 18:21:37 09/28/19 23 09/27/2022 CBC/C OMPLE TE BLD COUNT W/DIF F monocytes 5.3 % 5.0-12 .0 Not Available [facility] (Lab) [address] [place], [address], 09/27/2022 18:21:37 09/28/19 23 09/27/2022 CBC/C OMPLE TE BLD COUNT W/DIF F eosinophils 4.4 % 1.0-7. 0 Not Available [facility] (Lab) [address] [place], [address], 09/27/2022 18:21:37 09/28/19 23 09/27/2022 CBC/C OMPLE TE BLD COUNT W/DIF F basophils 0.4 % 0.0-2. 0 Not Available [facility] (Lab) [address] [place], [address], 09/27/2022 18:21:37 09/28/19 23 09/27/2022 CBC/C OMPLE TE BLD COUNT W/DIF F immature granulocytes 0.6 % 0.00-0 .50 high Not Available [facility] (Lab) [address] [place], [address], 09/27/2022 18:21:37 09/28/19 23 09/27/2022 CBC/C OMPLE TE BLD COUNT W/DIF F neutrophils, absolute count 6.77 x10'3 /uL 1.5-8. 0 Not Available [facility] (Lab) [address] [place], [address], 09/27/2022 18:21:37 09/28/19 23 09/27/2022 CBC/C OMPLE TE BLD COUNT W/DIF F lymphocytes, absolute count 0.79 x10'3 /uL 1.07-3 .43 low Not Available [facility] (Lab) [address] [place], [address], 09/27/2022 18:21:37 09/28/19 23 09/27/2022 CBC/C OMPLE TE BLD COUNT W/DIF F monocytes, absolute count 0.45 x10'3 /uL 0.29-0 .99 Not Available [facility] (Lab) [address] [place], [address], 09/27/2022 18:21:37 09/28/19 23 09/27/2022 CBC/C OMPLE TE BLD COUNT W/DIF F eosinophils, absolute count 0.37 x10'3 /uL 0.02-0 .53 Not Available [facility] (Lab) [address] [place], [address], 09/27/2022 18:21:37 09/28/19 23 09/27/2022 CBC/C OMPLE TE BLD COUNT W/DIF F basophils, absolute count 0.03 x10'3 /uL 0.01-0 .08 Not Available [facility] (Lab) [address] [place], [address], 09/27/2022 18:21:37 09/28/19 23 09/27/2022 CBC/C OMPLE TE BLD COUNT W/DIF F immature granulocytes ,absolute 0.05 x10'3 /uL 0.00-0 .05 Not Available [facility] (Lab) [address] [place], [address], 09/27/2022 18:21:37 09/28/19 23 09/27/2022 CBC/C OMPLE TE BLD COUNT W/DIF F nucleated red blood cells 0.0 % -0 Not Available [facility] (Lab) [address] [place], [address], 09/27/2022 18:21:37 09/28/19 23 09/27/2022 CBC/C OMPLE TE BLD COUNT W/DIF F NRBC# 0.00 x10'3 /uL Not Available [facility] (Lab) [address] [place], [address], 09/27/2022 18:21:37 09/28/19 23 09/27/2022 COMPR EHENS ESTEFANIA METAB OLIC PANEL sodium 134 mmol/ L 137-14 5 low Not Available [facility] (Lab) [address] [place], [address], 09/27/2022 19:15:08 09/28/19 23 09/27/2022 COMPR EHENS ESTEFANIA METAB OLIC PANEL potassium 4.3 mmol/ L 3.5-5. 1 Not Available [facility] (Lab) [address] [place], [address], 09/27/2022 19:15:08 09/28/19 23 09/27/2022 COMPR EHENS ESTEFANIA METAB OLIC PANEL chloride 93 mmol/ L 98-107 low Not Available [facility] (Lab) [address] [place], [address], 09/27/2022 19:15:08 09/28/19 23 09/27/2022 COMPR EHENS ESTEFANIA METAB OLIC PANEL carbon dioxide 36 mmol/ L 22-30 high Not Available [facility] (Lab) [address] [place], [address], 09/27/2022 19:15:08 09/28/19 23 09/27/2022 COMPR EHENS ESTEFANIA METAB OLIC PANEL anion gap 9.3 mmol/ L 14-22 low Not Available [facility] (Lab) [address] [place], [address], 09/27/2022 19:15:08 09/28/19 23 09/27/2022 COMPR EHENS ESTEFANIA METAB OLIC PANEL glucose 118 mg/dL 70-99 high Not Available [facility] (Lab) [address] [place], [address], 09/27/2022 19:15:08 09/28/19 23 09/27/2022 COMPR EHENS ESTEFANIA METAB OLIC PANEL BUN 13 mg/dL 8-19 Not Available [facility] (Lab) [address] [place], [address], 09/27/2022 19:15:08 09/28/19 23 09/27/2022 COMPR EHENS ESTEFANIA METAB OLIC PANEL creatinine 0.69 mg/dL 0.66-1 .25 Not Available [facility] (Lab) [address] [place], [address], 09/27/2022 19:15:08 09/28/19 23 09/27/2022 COMPR EHENS ESTEFANIA METAB OLIC PANEL GFR >60 Refer ence Range : [place] ge GFR Healt hy Adult : >60 [...] calcu lator is avail able on the [facility] websi te: https :[email or web address] silverio.tash calvillo.[email or web address] rg/pr ofess ional s/kdo qi/gf r_cal culat or Not Available [facility] (Lab) [address] [place], [address], 09/27/2022 19:15:08 09/28/19 23 09/27/2022 COMPR EHENS ESTEFANIA METAB OLIC PANEL alkaline phosphatase 77 U/L 38-126 Not Available [facility] (Lab) [address] [place], [address], 09/27/2022 19:15:08 09/28/19 23 09/27/2022 COMPR EHENS ESTEFANIA METAB OLIC PANEL alanine aminotransfe rase 20 U/L 0-50 Not Available [facility] (Lab) [address] [place], [address], 09/27/2022 19:15:08 09/28/19 23 09/27/2022 COMPR EHENS ESTEFANIA METAB OLIC PANEL aspartate aminotransfe rase 42 U/L 15-46 Not Available [facility] (Lab) [address] [place], [address], 09/27/2022 19:15:08 09/28/19 23 09/27/2022 COMPR EHENS ESTEFANIA METAB OLIC PANEL bilirubin, total 0.40 mg/dL 0.20-1 .30 Not Available [facility] (Lab) [address] [place], [address], 09/27/2022 19:15:08 09/28/19 23 09/27/2022 COMPR EHENS ESTEFANIA METAB OLIC PANEL calcium 8.5 mg/dL 8.4-10 .2 Not Available [facility] (Lab) [address] [place], [address], 09/27/2022 19:15:08 09/28/19 23 09/27/2022 COMPR EHENS ESTEFANIA METAB OLIC PANEL total protein 7.5 g/dL 6.3-8. 2 Not Available [facility] (Lab) [address] [place], [address], 09/27/2022 19:15:08 09/28/19 23 09/27/2022 COMPR EHENS ESTEFANIA METAB OLIC PANEL albumin 3.7 g/dL 3.4-5. 0 Not Available [facility] (Lab) [address] [place], [address], 09/27/2022 19:15:08 09/28/19 23 09/27/2022 COMPR EHENS ESTEFANIA METAB OLIC PANEL globulin 3.8 g/dL 2.6-4. 2 Not Available [facility] (Lab) [address] [place], [address], 09/27/2022 19:15:08 09/28/19 23 09/27/2022 COMPR EHENS ESTEFANIA METAB OLIC PANEL A/G ratio 1.0 ratio 1.0-2. 0 Not Available [facility] (Lab) [address] [place], [address], 09/27/2022 19:15:08 09/28/19 23 09/27/2022 LIPID PANEL cholesterol 145 mg/dL 140-19 9 NIH SANDI NSUS RECOM MENDA TION FOR DAYANARA STERO L: ADULT CHILD LOW RISK: <200 <170 BORDE RLINE : <200- 239 ----- HIGH RISK: >240 >200 Not Available [facility] (Lab) [address] [place], [address], 09/27/2022 19:15:11 09/28/19 23 09/27/2022 LIPID PANEL triglyceride s 113 mg/dL 0-150 NIH SANDI NSUS REPOR T RECOM MENDA TION FOR TRIGL YCERI JIMI: ADULT CHILD LOW RISK: <150 ----- BODER LINE: 150-1 99 ----- HIGH RISK: >200 ----- Not Available [facility] (Lab) [address] [place], [address], 09/27/2022 19:15:11 09/28/19 23 09/27/2022 LIPID PANEL HDL cholesterol 65 mg/dL 40- Not Available [facility] (Lab) [address] [place], [address], 09/27/2022 19:15:11 09/28/19 23 09/27/2022 LIPID PANEL [...] WILL NOT BE REPOR PADDY. Not Available [facility] (Lab) [address] [place], [address], 09/27/2022 19:15:11 09/28/19 23 09/27/2022 T4 FREE free T4 1.06 NG/dL 0.78-2 .19 Not Available [facility] (Lab) [address] [place], [address], 09/27/2022 19:17:26 09/28/19 23 09/27/2022 TSH thyroid-stim ulating hormone 3.250 uIU/m L 0.465- 4.680 Not Available [facility] (Lab) [address] [place], [address], 09/27/2022 19:34:59 09/28/19 23 09/27/2022 MICRO ALBUM N RNDM W/CRE AT RATIO ur creat 200.90 mg/dL REFER ENCE RANGE NOT ESTAB LISHE D FOR RANDO M URINE CREAT ININE Not Available [facility] (Lab) [address] [place], [address], 09/27/2022 20:10:17 09/28/19 23 09/27/2022 MICRO ALBUM N RNDM W/CRE AT RATIO microalbumin , urine 144.0 mg/L 0.0-16 .6 high Not Available [facility] (Lab) [address] [place], [address], 09/27/2022 20:10:17 09/28/19 23 09/27/2022 MICRO ALBUM [...] VOL. 26: S94-S 96, 2002 Not Available [facility] (Lab) [address] [place], [address], 09/27/2022 20:10:17 09/28/19 23 09/27/2022 VITAM IN D 25-HY DROXY vd25oh 27.8 NG/mL 30-100 low Vitam in D Statu s: Defic ient: <20 ng/mL Insuf ficie nt: 20-29 ng/mL Suffi cient : 30-10 0 ng/mL Not Available [facility] (Lab) [address] [place], [address], 09/27/2022 20:11:01 09/28/19 23 09/27/2022 HEMOG LOBIN A1C HA1C 5.9 % 4.0-6. 0 Diabe brenda Scree ester Crite clyde: <5.7% Consi stent with absen ce of diabe brenda 5.7-6 .4% Consi stent with incre ased risk for diabe brenda (pred iabet es) >OR=6 .5% Consi stent with diabe brenda REFER ENCE: Diabe brenda Care 2016, 39(Samson ppl.1 ):s13 -s22 Not Available [facility] (Lab) [address] [place], [address], 09/27/2022 20:17:56 09/28/19 23 09/27/2022 VITAM IN B12 (SARAH STEFANIE ) vb12 424 pg/mL 239-93 1 Not Available [facility] (Lab) [address] [place], [address], 09/27/2022 21:05:12 09/28/19 23 09/27/2022 FOLAT E, SERUM /PLAS MA folate 14.5 NG/mL 2.76-2 0.0 Not Available [facility] (Lab) [address] [place], [address], 09/27/2022 21:05:13 11/18/19 23 11/10/2022 compl ete PFT w/ post [facility] samantha metry * No observ ation record ed. [email or web address] Not Available 11/23 11:31:45 11/18/1911/10/2022 six min walk test w/ O2 titra tion* No observ ation record ed. [email or web address] Not Available 05/2022 18:36:39 11/25/1911/10/2022 PFT, compl ete No observ ation record ed. [email or web address] [address] [facility], [place], [address], 12/04/2022 10:28:30 12/13/1912/12/2022 XR, chest , 2 view No observ ation record ed. [address] [facility], [place], [address], 12/13/2022 10:21:14 12/14/19 23 12/13/2022 [facility] No observ ation record ed. [address] [facility], [place], [address], 12/14/2022 11:49:41 12/15/1912/13/2022 US, debbie brandon extre mity, compl ete No observ ation record ed. [address] [facility], [place], [address], 12/14/2022 11:50:06 12/26/19 23 12/25/2022 US, echo ardio gram No observ ation record ed. [address] [facility], [place], [address], 01/01/2023 16:55:53 Result Notes None recorded. Problems Name Problem SNOMED Code Status Onset Date Resolution Date Notes Provider Name and Address Organization Details Recorded Time Open wound of right lower leg 3092608736376 9101 Active 2021 Not Available [employer] 3 09:39:48 Chronic obstructiv e pulmonary disease 82602436 Active 2020 Not Available [facility] 3 09:39:48 Serum vitamin B12 below reference range 547126281 Active 2021 Not Available [facility] 3 09:39:48 Cobalamin deficiency 892067580 Active 2021 Not Available [facility] 3 09:39:48 Anemia 032021201 Active 2021 Not Available [facility] 3 09:39:48 Vitamin D deficiency 88872751 Active 2021 Not Available [facility] 3 09:39:48 Onychomyco sis 216423581 Active 2021 Not Available [facility] 3 09:39:48 Dyspnea on exertion 56956709 Active 2020 Not Available [facility] 3 09:39:48 Diabetes mellitus 06238522 Active 2020 Not Available [facility] 3 09:39:48 Posterior rhinorrhea 35205948 Active 2022 Not Available [facility] 3 09:39:48 Obstructiv e sleep apnea syndrome 10213641 Active 2021 Not Available [facility] 3 09:39:48 Paroxysmal atrial fibrillati on 230012935 Active 2022 Not Available [facility] 3 09:39:48 Congestive heart failure 46014221 Active 2022 Not Available [facility] 3 09:39:48 Morbid obesity 893926054 Active 2022 Not Available [facility] 3 09:39:48 Essential hypertensi on 20773297 Active 2022 Not Available [facility] 3 09:39:48 Testostero ne level below reference range 027658420 Active 2022 Not Available [facility] 3 09:39:48 Peripheral vascular disease 334691118 Active 2022 Not Available [facility] 3 09:39:48 Deficiency of vitamin D3 956659388 Active 2022 [facility] Available [facility] 3 09:39:48 Vitamin B12 deficiency (non anemic) 05262625 Active 2022 Not Available [facility] 3 09:39:48 Major depressive disorder 561726229 Active 2022 Not Available [facility] 3 09:39:48 Asthma 587939562 Active 2022 Not Available [facility] 3 09:39:48 Hyperlipid emia 52935709 Active 2022 Not Available [facility] 3 09:39:48 Iron deficiency anemia 31597197 Active 2022 Not Available [facility] 3 09:39:48 Dry skin dermatitis 803233139 Active 2022 Not Available [facility] 3 09:39:48 Proteinuri a 46902903 Active 2022 Not Available [facility] 3 09:39:48 Foot callus 089335766 Active 2022 Not Available [facility] 3 09:39:48 Polyneurop athy 29319824 Active 2022 Not Available [facility] 3 09:39:48 Type 2 diabetes mellitus 52547608 Active 2022 Not Available [facility] 3 09:39:48 Gastroesop hageal reflux disease 614276968 Active 2022 Not Available [facility] 3 09:39:48 Upper respirator y infection 21703045 Active 2022 Sadia adams [employer] 3 14:39:45 Chronic hypercapni c respirator y failure 875158195 Active 2022 Belinda Alonzo, CHOPPED STRAND OPERATOR-BC [address], [address] , [employer] 3 14:43:19 Open wound of toe of right foot 3564276005318 9100 Active 2022 Sadia adams [facility] [place] 3 13:45:40 Pain of left shoulder joint 5783187565446 9109 Active 2022 JEANIE Grissom-Zhanna [address] [facility] [address], [place], [address] , [place] [facility] 3 11:24:22 Neck pain 36374066 Active 2022 Sadia adams, [facility] 3 14:05:56 Problem Notes None recorded. Procedures Surgical History Date Name Laterality Status Provider Name and Address Organization Details Recorded Time Appendectomy completed Not Available [facility] 07/12/2022 00:43:19 Orthopedic Surgery completed Not Available [facility] 07/12/2022 00:43:19 Imaging Results Imaging Date Name Status LastModified by Organization Details LastModified Time 11/10/2022 complete PFT w/ post bronchodilator spirometry* completed Information not available 11/23/2022 11:31:45 11/10/2022 six min walk test w/ O2 titration* completed [email or web address] Information not available 12/12/2022 18:36:39 11/10/2022 PFT, complete completed [email or web address] [address], [address], 12/04/2022 10:28:30 12/12/2022 XR, chest, 2 view completed [address], [address], 12/13/2022 10:21:14 12/13/2022 US, echocardiogram completed [email or web address] Niles [address], [address], 12/14/2022 11:49:41 12/13/2022 US, duplex, venous, extremity, complete completed [email or web address], [address], 12/14/2022 11:50:06 12/25/2022 US, echocardiogram completed [email or web address] [address] [address] [place], [address], 01/01/2023 16:55:53 Procedure Notes None recorded. Medical Equipment None Reported. Allergies Allergen ID Allergen Name Allergen Category Reaction Reaction Severity Criticality Documentation Date Start Date Code Code System Note Provider Name and Address Organization Details Recorded Time 304 Product containin g penicilli n (product) medicatio n anaphylax is Not available Not available 07/12/2022 55203 8001 SNOMED Not Available [facility] 3 00:50:58 62456 penicilli n V Not available Not available Not available Not available 09/17/2023 7984 RxNorm Other react ions and sever ities : 'Adve rse react ion to subst ance - Sever e'. Hilda Morel, MACHINE SHOP REPAIR TECHNICIAN [address] [facility] [address], [place], [address] , [facility] 4 08:06:02 Medications Name Sig Start Date [...] Not Available Not Available BD Regular Bevel White Bird 21 gauge x 1 1/2 USE TO INJECT ONCE MONTHLY active Not Available Not Available No t Available Aloe Birchwood Antifunga l (miconazo le) 2 % topical [...] 134 mm[Hg] 74 mm[Hg] Nilda Corbett MA [facility] [employer] [facility] 3 14:26:19 Date Recorded Body height Body temperature Heart rate Oxygen saturation Oxygen saturation in Arterial blood by Pulse oximetry Inhaled oxygen flow rate Provider Name and Address Organization Details Last Updated DateTime 3 180.34 cm 98.9 [degF] 80 /min 94 % 94 % 4 L/min Anaid Flynn RN [facility] [employer] [facility] 3 14:13:14 Date Recorded Body height Provider Name an d Address Organization Details Last Updated DateTime 01/31/2023 180.34 cm Nilda Corbett MA [facility] [employer] [facility] 01/31/2023 10:43:04 Social History Question Answer Notes LastModified by Organizat ion Details LastModified Time Tobacco Smoking Status Never Smoker Not Available [facility] 07/12/2022 00:42:46 Do You Have An Advance Directive? Yes Living Will [id number] Information not available 07/12/2022 What Is Your Level Of Caffeine Consumption? Moderate MIGRATION.21534 [id number] Information not available 07/12/2022 How Much Tobacco Do You Chew? None MIGRATION.13521 [id number] Information not available 07/12/2022 In The 14 Days Before Symptom Onset, Have You Had Close Contact With A Laboratory-confir med COVID-19 While That Case Was Ill? No MIGRATION.[id number] Information not available 07/12/2022 In The 14 Days Before Symptom Onset, Have You Had Close Contact With A Person Who Is Under Investigation For COVID-19 While That Person Was Ill? No MIGRATION.13655 [id number] Information not available 07/12/2022 What Type Of Diet Are You Following? CARBOHYDRATE Low Carb MIGRATION.12295 71629 Information not available 07/12/2022 Which Illicit Or Recreational Drugs Have You Used? None MIGRATION.26489 [id number] Information not available 07/12/2022 What Is The Highest Grade Or Level Of School You Have Completed Or The Highest Degree You Have Received? [id number] MIGRATION.31925 [id number] Information not available 07/12/2022 Have There Been Any Changes To Your Family Or Social Situation? Yes Break Up MIGRATION.22224 06151 Information not available 07/12/2022 What Is The Fluoride Status Of Your Home? Unknown MIGRATION.19737 66591 Information not available 07/12/2022 Are There Any Guns Present In Your Home? No MIGRATION.51571 68209 Information not available 07/12/2022 Do You Use Insect Repellent Routinely? No MIGRATION.25002 81347 Information not available 07/12/2022 Where Do You Live? [place] MIGRATION.51483 51770 Information not available 07/12/2022 What Was The Date Of Your Most Recent Tobacco Screening? 01/31/2023 Information not available 01/31/2023 Do You Have Any Pets? Yes [id number].[id number] Information not available 07/12/2022 What Is Your Relationship Status? Single MIGRATION.03271 43701 Information not available 07/12/2022 Do You Use Your Seat Belt Or Car Seat Routinely? Yes MIGRATION.34635 48705 Information not available 07/12/2022 Do You Have Smoke And Carbon Monoxide Detectors In Your Home? Yes MIGRATION.68065 33608 Information not available 07/12/2022 Are You Passively Exposed To Smoke? Yes MIGRATION.15168 80487 Information not available 07/12/2022 Are There Any Smokers In Your House? No MIGRATION.14072 01788 Information not available 07/12/2022 How Much Tobacco Do You Smoke? No MIGRATION.10422 79815 Information not available 07/12/2022 Do You Use Sunscreen Routinely? No MIGRATION.21845 91580 Information not available 07/12/2022 How Many Years Have You Smoked Tobacco? 0 MIGRATION.38146 93983 Information not available 07/12/2022 Have You Recently Traveled Abroad? No MIGRATION.15888 28457 Information not available 07/12/2022 Sex: Male Functional Status Question Answer Note LastModified by Organizat ion Details LastModified Time Do you use any illicit or recreational drugs? No MIGRATION.669666 9602 Information not available 07/12/2022 What is your level of alcohol consumption? None MIGRATION.233009 7924 Information not available 07/12/2022 Do you or have you ever used smokeless tobacco? Never used smokeless tobacco MIGRATION.906048 5331 Information not available 07/12/2022 What is your occupation? Disabled MIGRATION.452269 0068 Information not available 07/12/2022 Do you or have you ever used e-cigarettes or vape? Never used electronic cigarettes MIGRATION.200242 9677 Information not available 07/12/2022 What is your exercise level? Occasional MIGRATION.454382 2540 Information not available 07/12/2022 Mental Status Question Answer Note LastModified by Organizat ion Details LastModified Time Do you feel stressed (tense, restless, nervous, or anxious, or unable to sleep at night)? [id number] MIGRATION.[id number] Information not available 07/12/2022 Family History Relationship Description Onset Age of this Age Resolved Age Notes LastModified by Organization Details LastModified Time Mother Malignant tumor of colon deceas ed MIGRATION.035 [id number] Not available 07/12/2022 00:43:23 Mother Diabetes mellitus MIGRATION.276 [id number] Not available 07/12/2022 00:43:23 Unspecified Relation Family history of Hypertension both sides MIGRATION.710 [id number] Not available 07/12/2022 00:43:23 Medical History Condition [...] PF 0 completed Hilda Morel APRN [address] [place] [address] [address], [place], [address], [facility] [employer] 09/17/2023 08:05:42 COVID-19, mRNA, LNP-S, PF, 100 mcg/0.5mL dose or 50 mcg/0.25mL dose 1 completed Hilda Morel APRN [address], [address], [place], [address], [facility] [employer] 09/17/2023 08:05:42 COVID-19, mRNA, LNP-S, PF, 100 mcg/0.5mL dose or 50 mcg/0.25mL dose 1 completed Hilda Morel APRN [address], [address], [place], [address], [facility] [employer] [facility] 09/17/2023 08:05:42 COVID-19, mRNA, LNP-S, bivalent, PF, 30 mcg/0.3 mL dose 2 completed Hilda Morel APRN [address], [address], [place], [address], [facility] [employer] [facility] 09/17/2023 08:05:42 influenza, unspecified formulation [address], [place], [address], [facility] [employer] [facility] 09/17/2023 08:05:43 Tdap [address], [place], [address], [facility] [employer] [facility] 09/17/2023 08:05:43 Tdap 0 [address], [place], [address], [facility] [employer] [facility] 09/17/2023 08:05:43 tetanus toxoid, adsorbed [address], [place], [address], [facility] [employer] [facility] 09/17/2023 08:05:43 Influenza, split virus, quadrivalent, PF 7 [address], [place], [address], [facility] [employer] [facility] 09/17/2023 08:05:43 Influenza, split virus, quadrivalent, PF 5 completed [address], [place], [address], [facility] [employer] [facility] 09/17/2023 08:05:43 Influenza, split virus, quadrivalent, PF 6 completed [address], [place], [address], [facility] [place] [employer] [facility] 09/17/2023 08:05:43 Influenza, split virus, quadrivalent, PF 2 completed Hilda Morel APRN [address], [place], [address], [employer] [facility] [employer] [facility] 09/17/2023 08:05:43 influenza, unspecified formulation [address], [place], [address], [employer] [facility] [employer] [facility] [employer] [facility] 09/17/2023 08:05:43 COVID-19, mRNA, LNP-S, PF, 30 mcg/0.3 mL dose 1 completed Hilda Morel APRN [address], [address], [place], [address], [employer] [facility] [employer] [facility] [employer] [facility] 09/17/2023 08:05:42 Influenza, split virus, quadrivalent, preservative 0 completed [address], [place], [address], [employer] [facility] [employer] [facility] 09/17/2023 08:05:42 tetanus toxoid, unspecified formulation 1 completed Not Available Critical [facility] hospital 10/19/2022 09:39:50 COVID-19, mRNA, LNP-S, PF, 100 mcg/0.5mL dose or 50 mcg/0.25mL dose 1 [address], [place], [address], [employer] [facility] [employer] [facility] [employer] [facility] 09/17/2023 08:05:42 zoster recombinant 0 completed [address], [place], [address], [facility] [employer] [facility] [employer] [facility] 09/17/2023 08:05:42 Influenza, split virus, quadrivalent, preservative 0 completed [address], [place], [address], [facility] [employer] [facility] 09/17/2023 08:05:42 zoster recombinant 0 completed Hilda Morel, MACHINE SHOP REPAIR TECHNICIAN [address] [facility], [address], [place], [address], [facility] [employer] [facility] 09/17/2023 08:05:42 Influenza, split virus, quadrivalent, PF 1 completed Not Available [facility] 10/19/2022 09:39:50 pneumococcal polysaccharide PPV23 0 completed Not Available [facility] 10/19/2022 09:39:50 Past Encounters Encounter ID Performer Location Encounter Start Date Encounter Closed Date Diagnosis/Indication Diagnosis SNOMED-CT Code Diagnosis ICD10 Code Diagnosis Note [id number] VINNIE Grissom S_G Internal Med [facility] [address] [facility], [facility] [address] [place] [address] 07/29/2020 00:00:00 07/29/2020 12:49:19 [id number] Nicholas [facility]iguez MD [facility] [address] , [place] [address] 10/13/2020 00:00:00 11/11/2020 17:16:57 [id number] S_Histor ic_Gateway [facility]G Pulmonolo gy [place] [address] [address], [address] [place] [address] 10/20/2020 00:00:00 10/20/2020 14:00:37 [id number] AHS_Histor ic[facility]Gateway [facility] Pulmonolo gy [place] [address] [facility] [address] [place] [address] 11/19/2020 00:00:00 11/19/2020 14:47:24 [id number] Nicholas rodriguez MD S_GMG Internal Med [facility] [address] [facility], [facility] [address] [place] [address] 01/31/2021 00:00:00 01/31/2021 14:10:02 [id number] S_Histor ic_Gateway [facility]G Pulmonolo gy [place] [address] [place] [address] 02/23/2021 00:00:00 02/23/2021 15:04:13 [id number] Nicholas rodriguez MD S_GMG Internal Med [place] [address] [facility] , [place] [address] 04/25/2021 00:00:00 04/25/2021 13:11:03 [id number] AHS_Histor ic_Gateway [facility]G Pulmonolo gy [place] [address] [place] [address] 06/01/2021 00:00:00 06/01/2021 16:22:35 [id number] Nicholas rodriguez MD S_GMG Internal Med [place] [address] [facility] , [place] [address] 08/03/2021 00:00:00 08/03/2021 13:19:02 [id number] AHS_Histor ic_Gateway [facility]G Pulmonolo gy [place] [address] [place] [address] 08/03/2021 00:00:00 08/03/2021 11:45:55 [id number] AHS_Histor ic_Gateway [facility] Podiatry [place] [address] [place] [address] 08/22/2021 00:00:00 08/23/2021 11:01:51 [id number] Belinda Alonzo CHOPPED STRAND OPERATOR- AHS_GMG Pulmonolo gy [place] [address] [place] [address] 2021 00:00:00 2021 13:52:34 [id number] Nicholas rodriguez MD S_GMG Internal Med [place] [address] [place], [place] [address], [address] [place] [address] 11/17/2021 00:00:00 11/17/2021 11:06:30 [id number] Nicholas rodriguez MD [facility] Internal Med [place] [address] [facility] [place] [address] 01/11/2022 00:00:00 01/11/2022 13:46:47 [id number] Nicholas rodriguez MD [facility] Internal Med [facility] [address] [facility], [address] [place] [address] 06/06/2022 00:00:00 06/06/2022 16:36:20 [id number] Belinda Alonzo, [facility] Pulmonolo gy [place] Mckeon [address] [place] [address] 06/20/2022 00:00:00 06/20/2022 11:54:13 [id number] Nicholas rodriguez MD [facility] Internal Med [place] [address] [facility] , [place] [address] 09/27/2022 14:06:36 09/27/2022 14:50:02 Paroxysmal atrial fibrillation 932998785 I48.0 on cardizem, xarelto, digoxin, follows cardiology - Dr. Fang referral to Dr. Zelaya as requested Congestive heart failure 43319868 I50.9 as above Morbid obesity 039008788 E66.01 he has decided against bariatric surgeryHe is considerin g surgery again, he wants to do some research as to where he would like to be referred and he will call us when he is ready for a referralco ntinue diet/exerc ise efforts Polyneuropathy 58904145 G62.9 follows neurology- TRANSMITTER CHIEF Belkys at [facility] t a new neurology referral per his request-Dinh Winter with [facility] Essential hypertension 55262086 I10 on lisinopril , lasix, follows cardiology as above Testostero ne level below reference range 358557821 R89.1 on testostero ne, follows urology- Dr. Dunham Obstructiv e sleep apnea syndrome 17234593 G47.33 on CPAP- follows pulm for compliance - Belinda Alonzo Peripheral vascular disease 251856778 I73.9 follows cardiology as aboveappt with podiatry as above Type 2 roro betes mellitus 52420282 E11.9 now off metformin, working on lifestyle measuresfo sandrine podiatry for foot care Vitamin D deficiency 347 76355 E55.9 on supplement Vitamin B1 2 deficiency (non anemic) 70389228 E53.8 on supplement Gastroesop hageal reflux disease 986721460 K21.9 on omeprazole Major depr essive disorder 241067662 F32.9 on sertraline call office if any change in mood or behaviorde clines psychiatry referral at this time Asthma 652899994 J45.90 9 on Trelegy, follows pulm as above, on home O2 of 5L with activity and at night Hyperlipidemia 16958195 E78.5 on rosuvastat in Iron defic iency anemia 83203555 D50.9 on supplement now following hematology - Dr. Carrillo- has his 1st appointmen t later this month Dry skin dermatitis 2600 48314 L85.3 on ammonium lactate lotion to BLE Proteinuria 72028377 R80 .9 follows nephrology - Dr. Santana/George ack Foot callus 441273161 L8 4 get appt with podiatry as above [id number] Belinda Alonzo, [facility]GMG Pulmonolo gy [place] [address] [place] [address] 12/19/2022 14:07:55 12/19/2022 15:08:45 Chronic hypercapnic respiratory failure 544682144 J96.12 PFT 10/2022 with FEV1 31%CO2 inpatient [...] at rest Chronic ob structive pulmonary disease 37716502 J44.9 PFT 03/2020 through [facility] with FEV1 40%Repeat 10/2022 with FEV1 31% - in chartConti nue Bevespi and FloventHe is aware to rinse and spitDiscus sed reportable signs and symptomsRT C in 3-4 weeks, PRN for concernsOr jade for POC with strap today Dependence on supplemental oxygen 4780634692 07 Z99.81 He has good use and benefit Obstructiv e sleep apnea syndrome 78903561 G47.33 NIV order as above [id number] Nicholas rodriguez MD S_GMG Internal Med [place] [address] [facility] [place] [place] [address] 01/31/2023 10:36:22 01/31/2023 11:36:45 Paroxysmal atrial fibrillation 532043396 I48.0 on cardizem, xarelto, digoxin, follows cardiology - Dr. Zelaya Congestive heart failure 87580727 I50.9 as aboveon lasix and spironolac tone from cardiology Morbid obesity 625780883 E66.01 he has decided against bariatric surgeryHe is considerin g surgery again, he wants to do some research as to where he would like to be referred and he will call us when he is ready for a referralco ntinue diet/exerc ise efforts Polyneuropathy 42033633 G62.9 follows neurology- -Lizzie Winter with [facility] Essential hypertension 27050713 I10 on lisinopril , lasix, follows cardiology as above Testostero ne level below reference range 121764980 R89.1 on testostero ne, follows urology- Dr. Dunham Obstructiv e sleep apnea syndrome 71013370 G47.33 on CPAP- follows pulm for compliance - Belinda Alonzo Peripheral vascular disease 718968231 I73.9 follows cardiology as aboveappt with podiatry as above Type 2 roro betes mellitus 34937272 E11.9 now off metformin, working on lifestyle measuresfo [facility] podiatry for foot care Vitamin D deficiency 347 76636 E55.9 on supplement Vitamin B1 2 deficiency (non anemic) 00292424 E53.8 on supplement Gastroesop hageal reflux disease 495735821 K21.9 on omeprazole Major depr essive disorder 986165315 F32.9 on sertraline call office if any change in mood or behaviorde clines psychiatry referral at this time Asthma 010177545 J45.90 9 on Trelegy, follows pulm as above, on home O2 of 5L with activity and at night Hyperlipidemia 00218788 E78.5 on rosuvastat in Iron defic iency anemia 37325650 D50.9 on supplement now following hematology - Dr. Carrillo Dry skin dermatitis 2600 65966 L85.3 on ammonium lactate lotion to BLE Proteinuria 67566262 R80 .9 follows nephrology - Dr. Santana/George aclupe Foot callus 589209534 L8 4 get appt with podiatry as above Pain of le ft shoulder joint 1123542607 6700129 M25.512 He will call us with the name of the Ortho he wants to see, he does not want a referral at this time, wants to find someone in [place] or [facility] Concerns Section Related Observation LastModified by Organization Detai ls LastModified Time None Recorded Concern Status LastModified by Organization Details LastModified Time None Recorded Advance Directives Directive Y: living will Payers Encounter Date Sequence Insurance Name Policy Number Policy Marroquin Covered Member ID Marroquin Member ID Guarantor Name 09/27/2022 1 [facility] [facility] [place]MEDICARE - MEDICAID REPLACEMENT HMO) [id number] Justo Hancock Jr [id number] Justo Hancock 12/19/2022 1 [employer] [place] [facility] [facility] [place] - MEDICAID REPLACEMENT HMO) [id number] Justo Hancock Jr [id number] Justo Hancock 01/31/2023 1 [employer] [place] [facility] [place] - MEDICAID REPLACEMENT HMO) [id number] Justo Hancock Jr [id number] Justo Hancock Notes Date Note Type Note [...] Zelaya for cardiology and Lizzie Best in [place] for neurology. He follows up again with [...] due for lab work today. Jeniffer Veras, JEANIE-C [address] [facility], [facility] [address], [place], [address], [email or web address] 09/27/2022 15:25:53 12/19/2022 text/html Mr Hancock present [...] is unable to lie flat Belinda Alonzo, CHOPPED STRAND OPERATOR-BC [address] [facility] [facility] [address], [place], [address], [email or web address] 12/19/2022 15:55:31 01/31/2023 text/html This is a telehe alth visit conducted via telephone audio only. Patient agrees to telehealth visit. Justo presents today via telephone audio for follow-up. He was unable to make it into the office as he was unable to get a ride. He was hospitalized at [facility] beginning of December for acute on chronic respiratory failure and CHF. He was placed on BiPAP. He had never had to be intubated. He is now on home BiPAP. He did get set up with his new information technology coordinator, Dr. Zelaya. He reports they started him [...] person he wants to see. Jeniffer Veras, CHOPPED STRAND OPERATOR-C [address] [facility], [facility] [address], [place], [address], [facility] [employer] [facility] 01/31/2023 14:04:00
--- OUTSIDE RECORDS SUMMARY | 2024-09-29 01:40 | XMS_ITS | Clinical Summary ---
Author Organization [facility] Address [address] [place] [address] Care Team Providers Care Validation Leader Name Role Phone Jose Naidu MD Primary Care Prov ider Source Comments [facility],non-owned Affiliates and Associated Physician Practices is amultiple site organization consisting of ambulatory clinics and hospital sitesin [place], [place], [place] and [place]. This disclosure is being madepursuant to the Care Everywhere program and may not contain all information available regarding this patient. Last updated 18.[facility] Allergies Active Allergy Reactions Criticality Noted Date Comments Penicillins 02/02/2011 Medications * Be aware that medications may not be up to date on this document. Alwaysverify current medications with the patient. mometasone (NASONEX) 50 MCG/ACT nasal sprayIndication s:Congestion,AR (allergic rhinitis) [place] 2 Sprays into each nostril once daily. [...] on file Legal Sex Male 11:47 AM PLATE GRINDER Gender Identity Not on file Sexual Orientation Not on file Last Filed Vital Signs Vital Sign Reading Time Taken Comments Blood Pressure 121/81 06/03/2011 7:14 AM PLATE GRINDER Pulse 55 06/03/2011 7:14 AM PLATE GRINDER Temperature 36.4 C (97.6 F) 06/03/2011 7:14 AM PLATE GRINDER Respiratory Rate 20 06/03/2011 7:14 AM PLATE GRINDER Oxygen Saturation 96% 06/03/2011 7:14 AM PLATE GRINDER Inhaled Oxygen Concentration - - Weight 117.9 kg (260 lb) 06/01/2011 11:54 AM PLATE GRINDER Height 185.4 cm (6' 1) 06/01/2011 11:54 AM PLATE GRINDER Body Mass Index 34.3 06/01/2011 11:54 AM PLATE GRINDER Plan of Treatment Health Maintenance Due Date [...] PM CDT Narrative Resulting Agency Comment [facility] [address] [facility] [phone] us Murphy Valadez MD LAB - BODY FLUID ORDERABLES Fi nal Result [facility] ACCOUNT BILL [address] [place] [address] * (ABNORMAL) LIPID PROFILE (02/02/2011 1:27 PM [...] PM CDT Narrative Resulting Agency Comment [facility] [address] [facility] [phone] Murphy Valadez MD LAB - CHEMISTRY ORDERABLES Fin al Result [facility] ACCOUNT BILL [address] [place] [address] from Last 3 Months or Most Recently Relevant to Health Maintenance Insurance [facility] [place] Advance Directives * FULL RESUSCITATION (Latest Code Status on File) Date Activated Date Inactivated Comments 06/01/2011 5:59 PM 06/04/2011 12:05 AM Care Teams Validation Leader Relationship Specialty [place] [id number] [address] PCP - General 10/18/20
--- OUTSIDE RECORDS SUMMARY | 2024-09-29 01:40 | XMS_ITS | Clinical Summary ---
Author Organization [facility] Address [address] [place] [address] Care Team Providers Care Gate Guard Name Role Phone Jeniffer Veras NP Primary Care Provider [phone] Allergies Active Allergy Reactions Criticality Noted Date [...] Inactivated Comments 11/24/2021 2:21 PM Care Teams Gate Guard Relationship Specialty Start Date End Date Jeniffer Veras NP [facility] [place] [address] PCP - General NURSE PRACTITIONER 09/01/21
--- NOTE | 2024-09-29 07:26 | SUR.PREOP ---
Patient called and left message on front desk monitor phone stating he had a fever Sunday and would not be coming in for his procedure on Sunday.
--- NOTE | 2024-10-03 11:53 | PC.NURSE ---
Pt procedure sched. for 09/29/24 canceled per pt due to fever- states he had an infection in leg which has since cleared up. He is now scheduled for 10/10/24. No changes in meds or other health since last interview. Instructions and times reviewed with patient.
--- NOTE | 2024-10-03 11:58 | PC.NURSE ---
Spoke with patient_ regarding medication _xarelto_. _Patient_verbalizes understanding that the last dose is to be taken on _10/07/2024_ and the Endoscopist will instruct them when to restart after the procedure.
--- OUTSIDE RECORDS SUMMARY | 2024-10-10 01:13 | XMS_ITS | Clinical Summary ---
Author Organization [facility] Brad urrutia [facility] Address [address] [place] [address] Care Team Providers Care Luncheonette Manager Name Role Phone Unavailable Primary Care Provider Unavailabl e Encounters Date Type Department Care Team Description 07/17/2024 Abstract [facility] Bariatrics and General Surgery at the [facility] [address] [place] [address] [address] [place] [address] Marjorie Brown MD 07/17/2024 Chart Note [facility] Bariatrics and General Surgery at the [address] [place] [address] Marjorie Brown MD from Last 3 Months [...] Description 12/31/2024 11:30 AM CDT Office Visit [facility] Bariatrics and General Surgery at the [address] [place] [address] Marjorie Brown MD [address] [place] [address] [address] [place] [address] Health Maintenance Due Date Last Done Comments [...]
--- OUTSIDE RECORDS SUMMARY | 2024-10-10 01:14 | XMS_ITS | Clinical Summary ---
Author Organization [facility] Address [address] [place] [address] Care Team Providers Care Food Equipment Service Technician Name Role Phone Jose Naidu MD Primary Care Prov ider Source Comments [facility],non-owned Affiliates and Associated Physician Practices is amultiple site organization consisting of ambulatory clinics and hospital sitesin [place] and [place]. This disclosure is being madepursuant to the Care Everywhere program and may not contain all information available regarding this patient. Last updated 18.[facility] Allergies Active Allergy Reactions Criticality Noted Date Comments Penicillins 02/02/2011 Medications * Be aware that medications may not be up to date on this document. Alwaysverify current medications with the patient. mometasone (NASONEX) 50 MCG/ACT nasal sprayIndication s:Congestion,AR (allergic rhinitis) [address] Sprays into each nostril once daily. [...] on file Legal Sex Male 11:47 AM DIRECTOR INSTRUCTIONAL MATERIAL Gender Identity Not on file Sexual Orientation Not on file Last Filed Vital Signs Vital Sign Reading Time Taken Comments Blood Pressure 121/81 06/03/2011 7:14 AM DIRECTOR INSTRUCTIONAL MATERIAL Pulse 55 06/03/2011 7:14 AM DIRECTOR INSTRUCTIONAL MATERIAL Temperature 36.4 C (97.6 F) 06/03/2011 7:14 AM DIRECTOR INSTRUCTIONAL MATERIAL Respiratory Rate 20 06/03/2011 7:14 AM DIRECTOR INSTRUCTIONAL MATERIAL Oxygen Saturation 96% 06/03/2011 7:14 AM DIRECTOR INSTRUCTIONAL MATERIAL Inhaled Oxygen Concentration - - Weight 117.9 kg (260 lb) 06/01/2011 11:54 AM DIRECTOR INSTRUCTIONAL MATERIAL Height 185.4 cm (6' 1) 06/01/2011 11:54 AM DIRECTOR INSTRUCTIONAL MATERIAL Body Mass Index 34.3 06/01/2011 11:54 AM DIRECTOR INSTRUCTIONAL MATERIAL Plan of Treatment Health Maintenance Due Date [...] PM CDT Narrative Resulting Agency Comment [facility] [address] [phone] [place] Murphy Valadez MD LAB - BODY FLUID ORDERABLES Fi nal Result [facility] ACCOUNT BILL [id number] [place] [address] * (ABNORMAL) LIPID PROFILE (02/02/2011 1:27 PM [...] PM CDT Narrative Resulting Agency Comment [facility] [address] [phone] Murphy Valadez MD LAB - CHEMISTRY ORDERABLES Fin al Result [facility] ACCOUNT BILL [id number] [place] [address] from Last 3 Months or Most Recently Relevant to Health Maintenance Insurance [facility] MEDICARE DUAL ADV [place] Advance Directives * FULL RESUSCITATION (Latest Code Status on File) Date Activated Date Inactivated Comments 06/01/2011 5:59 PM 06/04/2011 12:05 AM Care Teams Food Equipment Service Technician Relationship Specialty [place] [id number] [address] PCP - General 10/18/20
--- OUTSIDE RECORDS SUMMARY | 2024-10-10 01:14 | XMS_ITS | Clinical Summary ---
Author Organization [facility] Address [address] [place] [address] Phone Care Team Providers Care Bar Tacker Sewing Machine Name Role Phone Unavailable Primary Care Provider [...] the evening. 07/08/2020 Active ergocalciferol 1.25 MG (40036 UT) capsule Take 1 capsule by mouth [...] Comments Blood Pressure 112/68 06/06/2022 11:19 AM CARPET INSPECTOR Pulse 81 06/06/2022 11:19 AM CARPET INSPECTOR Temperature 36.1 C (97 F) 06/06/2022 11:19 AM CARPET INSPECTOR Respiratory Rate 22 06/06/2022 11:1 9 AM CARPET INSPECTOR Oxygen Saturation 95% 06/06/2022 11: 19 AM CARPET INSPECTOR Inhaled Oxygen Concentration - - Weight 182 kg (402 lb) 06/06/2022 11:19 AM CARPET INSPECTOR Patient in a wheelchair. Height 181.6 cm (5' 11.5) 06/06/2022 1 1:19 AM CARPET INSPECTOR Body Mass Index 55.29 06/06/2022 11:19 AM CARPET INSPECTOR Plan of Treatment Health Maintenance Due Date [...] 10.7 mg/dL Phosphorus, Serum 3.8 eGFR Non-Afr [place] >60 Osmolality Calc 288.0 mosm/kg Hemoglobin A1C [...]
--- OUTSIDE RECORDS SUMMARY | 2024-10-10 01:14 | XMS_ITS | Data Portability ---
Author Organization [place] - [facility] [employer] Main Office Address [address] [place] [address] Assessment Encounter Date Assessment Date Assessment LastModified by Organization Details LastModified Time 09/27/2022 09/27/2022 WEA- 11/17/21 Cscope- Colonoscopy 09/2020- Nyazee- WNL- repeat 2030 PSA-08/02/21 Call office if worse, ER if life threatening illness RTC 3 months He voices understanding of plan and agrees [email or web address] Not available 09/27/2022 15:24:07 12/19/2022 12/19/2022 Spent up to 50 minutes preparing to see the patient (eg, review of tests), obtaining and/or reviewing separately obtained history, performing a medically appropriate examination and evaluation, counseling and educating the patient, ordering medications, tests, along with documenting clinical information in the electronic health record, independently interpreting results and communicating results to the patient. [email or web address] Not available 12/19/2022 15:51:36 01/31/2023 01/31/2023 The [...] him to get out of the house Not available 01/31/2023 14:03:14 Plan of Treatment Reminders Order Date Submit Date Provider Last Modified By Organization Details Last Modified Time Details Appointments None recorded. Lab gas panel, arterial blood 2022 023 [email or web address] [facility], [address] [place], [address], 3 12:02:11 HbA1c (hemoglobin A1c), blood [address] (Lab), [address] [place], [address], 3 14:42:58 microalbumi n/creatinin e, mass ratio, urine [address] (Lab), [address] [place], [address], 14:42:58 lipid panel, serum 2022 023 [facility] (Lab), [address] [place], [address], 3 19:15:11 TSH, serum or plasma 2022 023 [facility] (Lab), [address] [place], [address], 3 19:34:59 T4, free, serum 2022 023 [facility] (Lab), [address] [place], [address], 3 19:17:26 vitamin B12 + folate, serum or blood [address] (Lab), [address] [place], [address], 3 14:42:58 vitamin D, 25-hydroxy, total, serum 2022 023 [email or web address] [facility] (Lab), [address] [place], [address], 3 14:42:58 CMP, serum or plasma 2022 023 [facility] (Lab), [address] [place], [address], 3 19:15:08 CBC w/ auto diff 2022 023 [facility] (Lab), [address] [place], [address], 3 18:21:37 Referral neurologist referral - Lizzie Morse [id number] 15 [facility], [phone] 2022 023 [email or web address] Not available 4 10:44:46 cardiologis t referral 2022 023 [email or web address] Moose Zelaya DO, [address] [facility] [address], [place], [address], 4 10:44:25 Procedures None recorded. Surgeries None recorded. Imaging None recorded. Medication Orders None recorded. Patient TargetsNo targets recorded. Patient Instructions Encounter Date Encounter Id Patient Instructions Last Modified By Organization Details Last Modified Time 01/31/2023 [id number] Due to the COVID-19 (Novel Coronavirus) pandemic, it is within this context (and with the understanding that this method of patient encounter is in the patient s best interest as well as the health and safety of other patients and the public) that [facility] for this patient encounter rather than a [id number] visit. 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 Referral for Pa roxysmal atrial fibrillation Referring Physician: Jeniffer Veras, Internal Medicine, Encounter Date: 09/27/2022 Neurologist Referral for Carmelo yneuropathy Lizzie Winter- [id number] [facility], [phone] Referring Physician: Jeniffer Veras, Internal Medicine, Encounter Date: 09/27/2022 Results Created Date Observation Date Name Description Value Unit Range Abnormal Flag Note LastModifiedBy Organization Detail LastModifiedTime 09/28/1909/27/2022 CBC/C OMPLE TE BLD COUNT W/DIF F white blood cells 8.5 x10'3 /uL 4.2-10 .8 Not Available [facility] (Lab) [address] [place], [address], 09/27/2022 18:21:37 09/28/19 23 09/27/2022 CBC/C OMPLE TE BLD COUNT W/DIF F red blood cells 3.88 x10'6 /uL 4.10-5 .80 low Not Available [facility] (Lab) [address] [place], [address], 09/27/2022 18:21:37 09/28/19 23 09/27/2022 CBC/C OMPLE TE BLD COUNT W/DIF F hemoglobin 11.4 g/dL 13.2-1 7.0 low Not Available [facility] (Lab) [address] [place], [address], 09/27/2022 18:21:37 09/28/19 23 09/27/2022 CBC/C OMPLE TE BLD COUNT W/DIF F hematocrit 37.9 % 39.3-5 0.0 low Not Available [facility] (Lab) [address] [place], [address], 09/27/2022 18:21:37 09/28/19 23 09/27/2022 CBC/C OMPLE TE BLD COUNT W/DIF F mean red cell volume 97.7 fL 80.0-9 7.0 high Not Available [facility] (Lab) [address] [place], [address], 09/27/2022 18:21:37 09/28/19 23 09/27/2022 CBC/C OMPLE TE BLD COUNT W/DIF F mean red cell hemoglobin 29.4 pg 27.0-3 3.0 Not Available [facility] (Lab) [address] [place], [address], 09/27/2022 18:21:37 09/28/19 23 09/27/2022 CBC/C OMPLE TE BLD COUNT W/DIF F mean RBC HGB concentratio n 30.1 g/dL 31.0-3 6.0 low Not Available [facility] (Lab) [address] [place], [address], 09/27/2022 18:21:37 09/28/19 23 09/27/2022 CBC/C OMPLE TE BLD COUNT W/DIF F red cell distribution width 14.7 % 11.8-1 5.5 Not Available [facility] (Lab) [address] [place], [address], 09/27/2022 18:21:37 09/28/19 23 09/27/2022 CBC/C OMPLE TE BLD COUNT W/DIF F platelets 197 x10'3 /uL 150-40 0 Not Available [facility] (Lab) [address] [place], [address], 09/27/2022 18:21:37 09/28/19 23 09/27/2022 CBC/C OMPLE TE BLD COUNT W/DIF F mean platelet volume 10.6 fL 9.0-12 .4 Not Available [facility] (Lab) [address] [place], [address], 09/27/2022 18:21:37 09/28/19 23 09/27/2022 CBC/C OMPLE TE BLD COUNT W/DIF F neutrophils 80.0 % 39.0-7 2.0 high Not Available [facility] (Lab) [address] [place], [address], 09/27/2022 18:21:37 09/28/19 23 09/27/2022 CBC/C OMPLE TE BLD COUNT W/DIF F lymphocytes 9.3 % 16.0-4 7.0 low Not Available [facility] (Lab) [address] [place], [address], 09/27/2022 18:21:37 09/28/19 23 09/27/2022 CBC/C OMPLE TE BLD COUNT W/DIF F monocytes 5.3 % 5.0-12 .0 Not Available [facility] (Lab) [address] [place], [address], 09/27/2022 18:21:37 09/28/19 23 09/27/2022 CBC/C OMPLE TE BLD COUNT W/DIF F eosinophils 4.4 % 1.0-7. 0 Not Available [facility] (Lab) [address] [place], [address], 09/27/2022 18:21:37 09/28/19 23 09/27/2022 CBC/C OMPLE TE BLD COUNT W/DIF F basophils 0.4 % 0.0-2. 0 Not Available [facility] (Lab) [address] [place], [address], 09/27/2022 18:21:37 09/28/19 23 09/27/2022 CBC/C OMPLE TE BLD COUNT W/DIF F immature granulocytes 0.6 % 0.00-0 .50 high Not Available [facility] (Lab) [address] [place], [address], 09/27/2022 18:21:37 09/28/19 23 09/27/2022 CBC/C OMPLE TE BLD COUNT W/DIF F neutrophils, absolute count 6.77 x10'3 /uL 1.5-8. 0 Not Available [facility] (Lab) [address] [place], [address], 09/27/2022 18:21:37 09/28/19 23 09/27/2022 CBC/C OMPLE TE BLD COUNT W/DIF F lymphocytes, absolute count 0.79 x10'3 /uL 1.07-3 .43 low Not Available [facility] (Lab) [address] [place], [address], 09/27/2022 18:21:37 09/28/19 23 09/27/2022 CBC/C OMPLE TE BLD COUNT W/DIF F monocytes, absolute count 0.45 x10'3 /uL 0.29-0 .99 Not Available [facility] (Lab) [address] [place], [address], 09/27/2022 18:21:37 09/28/19 23 09/27/2022 CBC/C OMPLE TE BLD COUNT W/DIF F eosinophils, absolute count 0.37 x10'3 /uL 0.02-0 .53 Not Available [facility] (Lab) [address] [place], [address], 09/27/2022 18:21:37 09/28/19 23 09/27/2022 CBC/C OMPLE TE BLD COUNT W/DIF F basophils, absolute count 0.03 x10'3 /uL 0.01-0 .08 Not Available [facility] (Lab) [address] [place], [address], 09/27/2022 18:21:37 09/28/19 23 09/27/2022 CBC/C OMPLE TE BLD COUNT W/DIF F immature granulocytes ,absolute 0.05 x10'3 /uL 0.00-0 .05 Not Available [facility] (Lab) [address] [place], [address], 09/27/2022 18:21:37 09/28/19 23 09/27/2022 CBC/C OMPLE TE BLD COUNT W/DIF F nucleated red blood cells 0.0 % -0 Not Available [facility] (Lab) [address] [place], [address], 09/27/2022 18:21:37 09/28/19 23 09/27/2022 CBC/C OMPLE TE BLD COUNT W/DIF F NRBC# 0.00 x10'3 /uL Not Available [facility] (Lab) [address] [place], [address], 09/27/2022 18:21:37 09/28/19 23 09/27/2022 COMPR EHENS ESTEFANIA METAB OLIC PANEL sodium 134 mmol/ L 137-14 5 low Not Available [facility] (Lab) [address] [place], [address], 09/27/2022 19:15:08 09/28/19 23 09/27/2022 COMPR EHENS ESTEFANIA METAB OLIC PANEL potassium 4.3 mmol/ L 3.5-5. 1 Not Available [facility] (Lab) [address] [place], [address], 09/27/2022 19:15:08 09/28/19 23 09/27/2022 COMPR EHENS ESTEFANIA METAB OLIC PANEL chloride 93 mmol/ L 98-107 low Not Available [facility] (Lab) [address] [place], [address], 09/27/2022 19:15:08 09/28/19 23 09/27/2022 COMPR EHENS ESTEFANIA METAB OLIC PANEL carbon dioxide 36 mmol/ L 22-30 high Not Available [facility] (Lab) [address] [place], [address], 09/27/2022 19:15:08 09/28/19 23 09/27/2022 COMPR EHENS ESTEFANIA METAB OLIC PANEL anion gap 9.3 mmol/ L 14-22 low Not Available [facility] (Lab) [address] [place], [address], 09/27/2022 19:15:08 09/28/19 23 09/27/2022 COMPR EHENS ESTEFANIA METAB OLIC PANEL glucose 118 mg/dL 70-99 high Not Available [facility] (Lab) [address] [place], [address], 09/27/2022 19:15:08 09/28/19 23 09/27/2022 COMPR EHENS ESTEFANIA METAB OLIC PANEL BUN 13 mg/dL 8-19 Not Available [facility] (Lab) [address] [place], [address], 09/27/2022 19:15:08 09/28/19 23 09/27/2022 COMPR EHENS ESTEFANIA METAB OLIC PANEL creatinine 0.69 mg/dL 0.66-1 .25 Not Available [facility] (Lab) [address] [place], [address], 09/27/2022 19:15:08 09/28/19 23 09/27/2022 COMPR EHENS ESTEFANIA METAB OLIC PANEL GFR >60 Refer ence Range : Coleman ge GFR Healt hy Adult : >60 [...] calcu lator is avail able on the [facility] websi te: https ://claus silverio.tash calvillo.o rg/pr ofess ional s/kdo qi/gf r_cal culat or Not Available [facility] (Lab) [address] [place], [address], 09/27/2022 19:15:08 09/28/19 23 09/27/2022 COMPR EHENS ESTEFANIA METAB OLIC PANEL alkaline phosphatase 77 U/L 38-126 Not Available [facility] (Lab) [address] [place], [address], 09/27/2022 19:15:08 09/28/19 23 09/27/2022 COMPR EHENS ESTEFANIA METAB OLIC PANEL alanine aminotransfe rase 20 U/L 0-50 Not Available [facility] (Lab) [address] [place], [address], 09/27/2022 19:15:08 09/28/19 23 09/27/2022 COMPR EHENS ESTEFANIA METAB OLIC PANEL aspartate aminotransfe rase 42 U/L 15-46 Not Available [facility] (Lab) [address] [place], [address], 09/27/2022 19:15:08 09/28/19 23 09/27/2022 COMPR EHENS ESTEFANIA METAB OLIC PANEL bilirubin, total 0.40 mg/dL 0.20-1 .30 Not Available [facility] (Lab) [address] [place], [address], 09/27/2022 19:15:08 09/28/19 23 09/27/2022 COMPR EHENS ESTEFANIA METAB OLIC PANEL calcium 8.5 mg/dL 8.4-10 .2 Not Available [facility] (Lab) [address] [place], [address], 09/27/2022 19:15:08 09/28/19 23 09/27/2022 COMPR EHENS ESTEFANIA METAB OLIC PANEL total protein 7.5 g/dL 6.3-8. 2 Not Available [facility] (Lab) [address] [place], [address], 09/27/2022 19:15:08 09/28/19 23 09/27/2022 COMPR EHENS ESTEFANIA METAB OLIC PANEL albumin 3.7 g/dL 3.4-5. 0 Not Available [facility] (Lab) [address] [place], [address], 09/27/2022 19:15:08 09/28/19 23 09/27/2022 COMPR EHENS ESTEFANIA METAB OLIC PANEL globulin 3.8 g/dL 2.6-4. 2 Not Available [facility] (Lab) [address] [place], [address], 09/27/2022 19:15:08 09/28/19 23 09/27/2022 COMPR EHENS ESTEFANIA METAB OLIC PANEL A/G ratio 1.0 ratio 1.0-2. 0 Not Available [facility] (Lab) [address] [place], [address], 09/27/2022 19:15:08 09/28/19 23 09/27/2022 LIPID PANEL cholesterol 145 mg/dL 140-19 9 NIH SANDI NSUS RECOM MENDA TION FOR DAYANARA STERO L: ADULT CHILD LOW RISK: <200 <170 BORDE RLINE : <200- 239 ----- HIGH RISK: >240 >200 Not Available [facility] (Lab) [address] [place], [address], 09/27/2022 19:15:11 09/28/19 23 09/27/2022 LIPID PANEL triglyceride s 113 mg/dL 0-150 NIH SANDI NSUS REPOR T RECOM MENDA TION FOR TRIGL YCERI JIMI: ADULT CHILD LOW RISK: <150 ----- BODER LINE: 150-1 99 ----- HIGH RISK: >200 ----- Not Available [facility] (Lab) [address] [place], [address], 09/27/2022 19:15:11 09/28/19 23 09/27/2022 LIPID PANEL HDL cholesterol 65 mg/dL 40- Not Available [facility] (Lab) [address] [place], [address], 09/27/2022 19:15:11 09/28/19 23 09/27/2022 LIPID PANEL [...] WILL NOT BE REPOR PADDY. Not Available [facility] (Lab) [address] [place], [address], 09/27/2022 19:15:11 09/28/19 23 09/27/2022 T4 FREE free T4 1.06 NG/dL 0.78-2 .19 Not Available [facility] (Lab) [address] [place], [address], 09/27/2022 19:17:26 09/28/19 23 09/27/2022 TSH thyroid-stim ulating hormone 3.250 uIU/m L 0.465- 4.680 Not Available [facility] (Lab) [address] [place], [address], 09/27/2022 19:34:59 09/28/19 23 09/27/2022 MICRO ALBUM N RNDM W/CRE AT RATIO ur creat 200.90 mg/dL REFER ENCE RANGE NOT ESTAB LISHE D FOR RANDO M URINE CREAT ININE Not Available [facility] (Lab) [address] [place], [address], 09/27/2022 20:10:17 09/28/19 23 09/27/2022 MICRO ALBUM N RNDM W/CRE AT RATIO microalbumin , urine 144.0 mg/L 0.0-16 .6 high Not Available [facility] (Lab) [address] [place], [address], 09/27/2022 20:10:17 09/28/19 23 09/27/2022 MICRO ALBUM [...] VOL. 26: S94-S 96, 2002 Not Available [facility] (Lab) [address] [place], [address], 09/27/2022 20:10:17 09/28/19 23 09/27/2022 VITAM IN D 25-HY DROXY vd25oh 27.8 NG/mL 30-100 low Vitam in D Statu s: Defic ient: <20 ng/mL Insuf ficie nt: 20-29 ng/mL Suffi cient : 30-10 0 ng/mL Not Available [facility] (Lab) [address] [place], [address], 09/27/2022 20:11:01 09/28/19 23 09/27/2022 HEMOG LOBIN A1C HA1C 5.9 % 4.0-6. 0 Diabe brenda Scree ester Crite clyde: <5.7% Consi stent with absen ce of diabe brenda 5.7-6 .4% Consi stent with incre ased risk for diabe brenda (pred iabet es) >OR=6 .5% Consi stent with diabe brenda REFER ENCE: Diabe brenda Care 2016, 39(Samson ppl.1 ):s13 -s22 Not Available [facility] (Lab) [address] [place], [address], 09/27/2022 20:17:56 09/28/19 23 09/27/2022 VITAM IN B12 (SARAH STEFANIE ) vb12 424 pg/mL 239-93 1 Not Available [facility] (Lab) [address] [place], [address], 09/27/2022 21:05:12 09/28/19 23 09/27/2022 FOLAT E, SERUM /PLAS MA folate 14.5 NG/mL 2.76-2 0.0 Not Available [facility] (Lab) [address] [place], [address], 09/27/2022 21:05:13 11/18/19 23 11/10/2022 compl ete PFT w/ [facility] hodil ator samantha metry * No observ ation record ed. [email or web address] Not Available 11/23 11:31:45 11/18/1911/10/2022 six min walk test w/ O2 titra tion* No observ ation record ed. Not Available 05/2022 18:36:39 11/25/1911/10/2022 PFT, compl ete No observ ation record ed. [email or web address] [address] [facility], [place], [address], 12/04/2022 10:28:30 12/13/1912/12/2022 XR, chest , 2 view No observ ation record ed. [address] [facility], [place], [address], 12/13/2022 10:21:14 12/14/19 23 12/13/2022 [place], [facility] ardio gram No observ ation record ed. [address] [facility], [place], [address], 12/14/2022 11:49:41 12/15/1912/13/2022 US, debbie brandon extre mity, compl ete No observ ation record ed. [address] [facility], [place], [address], 12/14/2022 11:50:06 12/26/19 23 12/25/2022 US, echo ardio gram No observ ation record ed. [address] [facility], [place], [address], 01/01/2023 16:55:53 Result Notes None recorded. Problems Name Problem SNOMED Code Status Onset Date Resolution Date Notes Provider Name and Address Organization Details Recorded Time Open wound of right lower leg 0282412123166 9101 Active 2021 Not Available [employer] 3 09:39:48 Chronic obstructiv e pulmonary disease 83199551 Active 2020 Not Available [facility] 3 09:39:48 Serum vitamin B12 below reference range 224946191 Active 2021 Not [address] [facility] 3 09:39:48 Cobalamin deficiency 577252310 Active 2021 Not [address] [facility] 3 09:39:48 Anemia 912271035 Active 2021 Not [address] [facility] 3 09:39:48 Vitamin D deficiency 19528752 Active 2021 Not Available [facility] 3 09:39:48 Onychomyco sis 230624429 Active 2021 Not Available [facility] 3 09:39:48 Dyspnea on exertion 60418182 Active 2020 Not [address] [facility] 3 09:39:48 Diabetes mellitus 62668894 Active 2020 Not [address] [facility] 3 09:39:48 Posterior rhinorrhea 70553706 Active 2022 Not Available [facility] 3 09:39:48 Obstructiv e sleep apnea syndrome 66506199 Active 2021 Not Available [facility] 3 09:39:48 Paroxysmal atrial fibrillati on 804064062 Active 2022 Not Available [facility] 3 09:39:48 Congestive heart failure 41607912 Active 2022 Not Available [facility] 3 09:39:48 Morbid obesity 066219587 Active 2022 Not Available [facility] 3 09:39:48 Essential hypertensi on 76530001 Active 2022 Not Available [facility] 3 09:39:48 Testostero ne level below reference range 371184860 Active 2022 Not Available [facility] 3 09:39:48 Peripheral vascular disease 348672751 Active 2022 Not Available [facility] 3 09:39:48 Deficiency of vitamin D3 016656282 Active 2022 Not Available [facility] 3 09:39:48 Vitamin B12 deficiency (non anemic) 51136930 Active 2022 Not Available [facility] 3 09:39:48 Major depressive disorder 727530372 Active 2022 Not Available [facility] 3 09:39:48 Asthma 666296010 Active 20[address] Not [address] [facility] 3 09:39:48 Hyperlipid emia 94916422 Active 2022 Not Available [facility] 3 09:39:48 Iron deficiency anemia 77690342 Active 2022 Not Available [facility] 3 09:39:48 Dry skin dermatitis 171722133 Active 2022 Not Available [facility] 3 09:39:48 Proteinuri a 35527209 Active 2022 Not Available [facility] 3 09:39:48 Foot callus 638466302 Active 2022 Not Available [facility] 3 09:39:48 Polyneurop athy 47232826 Active 2022 Not Available [facility] 3 09:39:48 Type 2 diabetes mellitus 98803091 Active 2022 Not Available [facility] 3 09:39:48 Gastroesop hageal reflux disease 749164534 Active 2022 Not [address] 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[employer] [address], [address] , [employer] 3 14:43:19 Open wound of toe of right foot 1556668212742 9100 Active 2022 Sadia adams [employer] [facility] [place] [employer] [facility] 3 13:45:40 Pain of left shoulder joint 5655558610937 9109 Active 2022 VINNIE Grissom [address] [address], [place], [address] , [facility] [employer] [facility] 3 11:24:22 Neck pain 46941632 Active 2022 [facility] [employer] [facility] 3 14:05:56 Problem Notes None recorded. Procedures Surgical History Date Name Laterality Status Provider Name and Address Organization Details Recorded Time Appendectomy completed Not Available [facility] 07/12/2022 00:43:19 Orthopedic Surgery completed Not Available [facility] 07/12/2022 00:43:19 Imaging Results None recorded. Procedure Notes None recorded. Medical Equipment None Reported. Allergies Allergen ID Allergen Name Allergen Category Reaction Reaction Severity Criticality Documentation Date Start Date Code Code System Note Provider Name and Address Organization Details Recorded Time 304 Product containin g penicilli n (product) medicatio n anaphylax is Not available Not available 07/12/2022 49577 8001 SNOMED Not Available [facility] 3 00:50:58 60668 penicilli n V Not available Not available Not available Not available 09/17/2023 7984 RxNorm Other react ions and sever ities : 'Adve rse react ion to subst ance - Sever e'. Hilda Morel APRN [address] [address], [place], [address], [facility] [employer] [facility] 4 08:06:02 Medications Name Sig Start Date [...] Not Available Not Available BD Regular Bevel [place] 21 gauge x 1 1/2 USE TO INJECT ONCE MONTHLY active Not Available Not Available No t Available [employer] [place] Antifunga l (miconazo le) 2 % topical [...] [degF] 136 mm[Hg] 80 mm[Hg] Not Available [facility] 3 00:45:03 Date Recorded Body height Oxygen saturation Oxygen saturation in Arterial blood by Pulse oximetry Heart rate Body temperature Systolic blood pressure Diastolic blood pressure Provider Name and Address Organization Details Last Updated DateTime 3 180.34 cm 95 % 95 % 83 /min 96.3 [degF] 122 mm[Hg] 74 mm[Hg] Not Available [facility] 3 00:45:03 Date Recorded Body height Body temperature Heart rate Oxygen saturation Oxygen saturation in Arterial blood by Pulse oximetry Inhaled oxygen flow rate Systolic blood pressure Diastolic blood pressure Provider Name and Address Organization Details Last Updated DateTime 3 180.34 cm 98.4 [degF] 76 /min 98 % 98 % 5 L/min 134 mm[Hg] 74 mm[Hg] Nilda Corbett MA [facility] [employer] 3 14:26:19 Date Recorded Body height Body temperature Heart rate Oxygen saturation Oxygen saturation in Arterial blood by Pulse oximetry Inhaled oxygen flow rate Provider Name and Address Organization Details Last Updated DateTime 3 180.34 cm 98.9 [degF] 80 /min 94 % 94 % 4 L/min Anaid Flynn RN [facility] [employer] 3 14:13:14 Date Recorded Body height Provider Name an d Address Organization Details Last Updated DateTime 01/31/2023 180.34 cm Nilda Corbett, TAMIE [place] [facility] [employer] 01/31/2023 10:43:04 Social History Question Answer Notes LastModified by Organizat ion Details LastModified Time Tobacco Smoking Status Never Smoker Not Available [employer] 07/12/2022 00:42:46 Do You Have An Advance Directive? Yes Living Will [id number] Information not available 07/12/2022 What Is Your Level Of Caffeine Consumption? Moderate [id number] Information not available 07/12/2022 How Much Tobacco Do You Chew? None [id number] Information not available 07/12/2022 In The 14 Days Before Symptom Onset, Have You Had Close Contact With A Laboratory-confir med COVID-19 While That Case Was Ill? No [id number] Information not available 07/12/2022 In The 14 Days Before Symptom Onset, Have You Had Close Contact With A Person Who Is Under Investigation For COVID-19 While That Person Was Ill? No [id number] Information not available 07/12/2022 What Type Of Diet Are You Following? CARBOHYDRATE Low Carb [id number] Information not available 07/12/2022 Which Illicit Or Recreational Drugs Have You Used? None [id number] Information not available 07/12/2022 What Is The Highest Grade Or Level Of School You Have Completed Or The Highest Degree You Have Received? [id number] [id number] Information not available 07/12/2022 Have There Been Any Changes To Your Family Or Social Situation? Yes Break Up MIGRATION.84343 [id number] Information not available 07/12/2022 What Is The Fluoride Status Of Your Home? Unknown MIGRATION.26732 94788 Information not available 07/12/2022 Are There Any Guns Present In Your Home? No MIGRATION.68105 06162 Information not available 07/12/2022 Do You Use Insect Repellent Routinely? No MIGRATION.19338 56226 Information not available 07/12/2022 Where Do You Live? [place] MIGRATION.43702 15581 Information not available 07/12/2022 What Was The Date Of Your Most Recent Tobacco Screening? 01/31/2023 Information not available 01/31/2023 Do You Have Any Pets? Yes MIGRATION.97264 06834 Information not available 07/12/2022 What Is Your Relationship Status? Single MIGRATION.29808 55883 Information not available 07/12/2022 Do You Use Your Seat Belt Or Car Seat Routinely? Yes MIGRATION.08665 26511 Information not available 07/12/2022 Do You Have Smoke And Carbon Monoxide Detectors In Your Home? Yes MIGRATION.13932 64008 Information not available 07/12/2022 Are You Passively Exposed To Smoke? Yes MIGRATION.58746 08004 Information not available 07/12/2022 Are There Any Smokers In Your House? No MIGRATION.60778 54702 Information not available 07/12/2022 How Much Tobacco Do You Smoke? No MIGRATION.63672 57139 Information not available 07/12/2022 Do You Use Sunscreen Routinely? No MIGRATION.48299 89484 Information not available 07/12/2022 How Many Years Have You Smoked Tobacco? 0 MIGRATION.35761 95572 Information not available 07/12/2022 Have You Recently Traveled Abroad? No MIGRATION.13681 34111 Information not available 07/12/2022 Sex: Male Functional Status Question Answer Note LastModified by SNAPCARD ion Details LastModified Time Do you use any illicit or recreational drugs? No MIGRATION.963266 6167 Information not available 07/12/2022 What is your level of alcohol consumption? None MIGRATION.413263 6121 Information not available 07/12/2022 Do you or have you ever used smokeless tobacco? Never used smokeless tobacco MIGRATION.465522 5724 Information not available 07/12/2022 What is your occupation? Disabled MIGRATION.472076 1365 Information not available 07/12/2022 Do you or have you ever used e-cigarettes or vape? Never used electronic cigarettes MIGRATION.636885 3803 Information not available 07/12/2022 What is your exercise level? Occasional MIGRATION.183751 3028 Information not available 07/12/2022 Mental Status Question Answer Note LastModified by [employer] ion Details LastModified Time Do you feel stressed (tense, restless, nervous, or anxious, or unable to sleep at night)? [id number] MIGRATION.[id number] 6 Information not available 07/12/2022 Family History Relationship Description Onset Age of this Age Resolved Age Notes LastModified by Organization Details LastModified Time Mother Malignant tumor of colon deceas ed MIGRATION.915 [id number] Not available 07/12/2022 00:43:23 Mother Diabetes mellitus MIGRATION.496 [id number] Not available 07/12/2022 00:43:23 Unspecified Relation Family history of Hypertension both sides MIGRATION.154 [id number] Not available 07/12/2022 00:43:23 Medical History Condition Response CHEST XRAY N NERVE DISEASE Y BLINDNESS N BLADDER PROBLEMS N OTHER # 1 Y POLIO N LUNG DISEASE/DISORDER N RADIATION / CHEMOTHERAPY N COPD N Other # 2 N BLOOD DISEASES N SURGERY N EAR OR HEARING PROBLEMS N FEMALE PROBLEMS / INFECTIONS N DEPRESSION (INCLUDING POST ) Y BOWEL PROBLEMS N STROKE/TIA N CHEST CT [...] APNEA Y ALLERGIES/HAYFEVER N INFECTIOUS DISEASE N PROSTATE N HEART ARRHYTHMIA N INSOMNIA N HIGH CHOLESTEROL / HYPERLIPIDEMIA [...] DISORDER N ALZHEIMER'S DISEASE N FATIGUE N HERPES N DEMENTIA N RETINOPATHY N SEIZURES/EPILEPSY N HEADACHES/MIGRAINES N SLEEP STUDY N VASCULAR DISEASE N DIZZINESS N HEAD TRAUMA OR INJURY N KIDNEY DISEASE N HEART DISEASE/HEART PROBLEMS N MULTIPLE SCLEROSIS N PULMONARY FUNCTION TEST N CARDIAC ARRHYTHMIA Y CANCER: SPECIFY N PNEUMONIA N ANESTHESIA COMPLICATIONS N ATRIAL FIBRILLATION N PULMONARY EMBOLISM N AUTOIMMUNE DISEASE N Immunizations Vaccine Type Date Status Note Provider Nam e and Address Organization Details Recorded Time Influenza, MDCK, quadrivalent, PF 0 completed Hilda Morel, [employer] [address] [facility] [facility] [facility] [address], [place], [address], [facility] [employer] 09/17/2023 08:05:42 COVID-19, mRNA, LNP-S, PF, 100 mcg/0.5mL dose or 50 mcg/0.25mL dose 1 completed Hilda Morel APRN [address], [address], [place], [address], [facility] [employer] [facility] [employer] [facility] 09/17/2023 08:05:42 COVID-19, mRNA, LNP-S, PF, 100 mcg/0.5mL dose or 50 mcg/0.25mL dose [address], [place], [address], [employer] [facility] [employer] [facility] 09/17/2023 08:05:42 COVID-19, mRNA, LNP-S, bivalent, PF, 30 mcg/0.3 mL dose 2 completed Hilda Morel APRN [address], [address], [place], [address], [employer] [facility] [employer] [facility] 09/17/2023 08:05:42 influenza, unspecified formulation [address], [place], [address], [employer] [facility] [employer] [facility] 09/17/2023 08:05:43 Tdap 7 completed Hilda Morel APRN [address], [address], [place], [address], [employer] [facility] [employer] [facility] 09/17/2023 08:05:43 Tdap 0 completed [address], [place], [address], [employer] [facility] [employer] [facility] 09/17/2023 08:05:43 tetanus toxoid, adsorbed 1 completed Hilda Morel APRN [address], [address], [place], [address], [facility] [employer] [facility] [employer] [facility] 09/17/2023 08:05:43 Influenza, split virus, quadrivalent, PF 7 completed Hilda Morel APRN [address], [address], [place], [address], [employer] [facility] 09/17/2023 08:05:43 Influenza, split virus, quadrivalent, PF 5 completed Hilda Morel APRN [address], [address], [place], [address], [employer] [facility] 09/17/2023 08:05:43 Influenza, split virus, quadrivalent, PF 6 completed Hilda Morel APRN [address], [address], [place], [address], [employer] [facility] 09/17/2023 08:05:43 Influenza, split virus, quadrivalent, PF 2 completed Hilda Morel APRN [address], [address], [place], [address], [employer] 09/17/2023 08:05:43 influenza, unspecified formulation 2 completed Hilda Morel APRN [address], [address], [place], [address], [employer] 09/17/2023 08:05:43 COVID-19, mRNA, LNP-S, PF, 30 mcg/0.3 mL dose 1 completed Hilda Morel APRN [address], [address], [place], [address], [employer] [facility] 09/17/2023 08:05:42 Influenza, split virus, quadrivalent, preservative 0 completed Hilda Morel APRN [address], [address], [place], [address], [employer] [facility] 09/17/2023 08:05:42 tetanus toxoid, unspecified formulation 1 completed Not Available [facility] 10/19/2022 09:39:50 COVID-19, mRNA, LNP-S, PF, 100 mcg/0.5mL dose or 50 mcg/0.25mL dose 1 completed Hilda Morel APRN [address], [address], [place], [address], [employer] [facility] 09/17/2023 08:05:42 zoster recombinant 0 completed Hilda Morel APRN [address], [address], [place], [address], [employer] [facility] 09/17/2023 08:05:42 Influenza, split virus, quadrivalent, preservative 0 completed Hilda Morel APRN [address], [address], [place], [address], [employer] 09/17/2023 08:05:42 zoster recombinant 0 completed Hilda Morel APRN [address], [address], [place], [address], [employer] 09/17/2023 08:05:42 Influenza, split virus, quadrivalent, PF 1 completed Not Available [facility] 10/19/2022 09:39:50 pneumococcal polysaccharide PPV23 0 completed Not Available [facility] 10/19/2022 09:39:50 Past Encounters Encounter ID Performer Location Encounter Start Date Encounter Closed Date Diagnosis/Indication Diagnosis SNOMED-CT Code Diagnosis ICD10 Code Diagnosis Note [id number] VINNIE Grissom [facility] [address] [facility], [address] [place] [address] 07/29/2020 00:00:00 07/29/2020 12:49:19 [id number] Nicholas rodriguez MD S_[facility] Internal Med [place] c[place]uentes [address] [facility] [place] [address] 10/13/2020 00:00:00 11/11/2020 17:16:57 [id number] [facility] [place] [address] [place] [address] 10/20/2020 00:00:00 10/20/2020 14:00:37 [id number] [facility] [place] [address] [place] [address] 11/19/2020 00:00:00 11/19/2020 14:47:24 [id number] Nicholas rodriguez MD [facility] Internal Med [facility] [address] [facility], [facility] [address] [place] [address] 01/31/2021 00:00:00 01/31/2021 14:10:02 [id number] [facility] [place] [address] [place] [address] 02/23/2021 00:00:00 02/23/2021 15:04:13 [id number] MD MIN KeaneS_[facility] Internal Med [place] [address] [place] [address] [place] [address] 04/25/2021 00:00:00 04/25/2021 13:11:03 [id number] [facility] [place] [address] [place] [address] 06/01/2021 00:00:00 06/01/2021 16:22:35 [id number] Nicholas rodriguez MD [facility] Internal Med Mitch kortney [address] [place] [address] y , [place] [address] 08/03/2021 00:00:00 08/03/2021 13:19:02 [id number] [facility] Pulmon[facility] [place] [address] [place] [address] 08/03/2021 00:00:00 08/03/2021 11:45:55 [id number] [facility] Podiatry [place] [address] [place] [address] 08/22/2021 00:00:00 08/23/2021 11:01:51 [id number] DARRELL Lacey A[facility] [place] [address] [place] [address] 2021 00:00:00 2021 13:52:34 [id number] Nicholas rodriguez MD [facility] [address] [facility] [address] [address] 11/17/2021 00:00:00 11/17/2021 11:06:30 [id number] Nicholas rodriguez MD [facility] Med Halle hancocke [address] [place] [address] [place] [address] 01/11/2022 00:00:00 01/11/2022 13:46:47 [id number] Nicholas rodriguez MD [facility] [address] [facility] [address] [address] 06/06/2022 00:00:00 06/06/2022 16:36:20 [id number] Belinda Alonzo [facility] [place] [address] [place] [address] 06/20/2022 00:00:00 06/20/2022 11:54:13 [id number] Nicholas rodriguez MD [facility] Med [place] [address] [facility] [place] [address] 09/27/2022 14:06:36 09/27/2022 14:50:02 Paroxysmal atrial fibrillation 492642178 I48.0 on cardizem, xarelto, digoxin, follows cardiology - Dr. Fang referral to Dr. Zelaya as requested Congestive heart failure 95388978 I50.9 as above Morbid obesity 930212100 E66.01 he has decided against bariatric surgeryHe is considerin g surgery again, he wants to do some research as to where he would like to be referred and he will call us when he is ready for a referralco ntinue diet/exerc ise efforts Polyneuropathy 79088425 G62.9 follows neurology- ESTEBAN Rizvi at [facility] t a new neurology referral per his request-Tamie Winter with [facility] Essential hypertension 32677983 I10 on lisinopril , lasix, follows cardiology as above Testostero ne level below reference range 538412900 R89.1 on testostero ne, follows urology- Dr. Dunham Obstructiv e sleep apnea syndrome 74000901 G47.33 on CPAP- follows pulm for compliance - Belinda Alonzo Peripheral vascular disease 438910905 I73.9 follows cardiology as aboveappt with podiatry as above Type 2 roro betes mellitus 87895521 E11.9 now off metformin, working on lifestyle measuresfo madyson podiatry for foot care Vitamin D deficiency 347 18686 E55.9 on supplement Vitamin B1 2 deficiency (non anemic) 42593388 E53.8 on supplement Gastroesop hageal reflux disease 165586571 K21.9 on omeprazole Major depr essive disorder 910918963 F32.9 on sertraline call office if any change in mood or behaviorde clines psychiatry referral at this time Asthma 238260801 J45.90 9 on Trelegy, follows pulm as above, on home O2 of 5L with activity and at night Hyperlipidemia 08983006 E78.5 on rosuvastat in Iron defic iency anemia 70881069 D50.9 on supplement now following hematology - Dr. Carrillo- has his 1st appointmen t later this month Dry skin dermatitis 2600 49569 L85.3 on ammonium lactate lotion to BLE Proteinuria 18871263 R80 .9 follows nephrology - Dr. Santana/George ack Foot callus 019208584 L8 4 get appt with podiatry as above [id number] Belinda Alonzo, [facility] Pulmonolo gy Romaine Mckeon [address] [place] [address] 12/19/2022 14:07:55 12/19/2022 15:08:45 Chronic hypercapnic respiratory failure 529998467 J96.12 PFT 10/2022 with FEV1 31%CO2 inpatient [...] at rest Chronic ob structive pulmonary disease 60118889 J44.9 PFT 03/2020 through [facility] with FEV1 40%Repeat 10/2022 with FEV1 31% - in chartConti nue Bevespi and FloventHe is aware to rinse and spitDiscus sed reportable signs and symptomsRT C in 3-4 weeks, PRN for concernsOr jade for POC with strap today Dependence on supplemental oxygen 5562967029 07 Z99.81 He has good use and benefit Obstructiv e sleep apnea syndrome 39574419 G47.33 NIV order as above [id number] Nicholas rodriguez MD S_G Internal Med [place] [address] , [address] [place] [address] 01/31/2023 10:36:22 01/31/2023 11:36:45 Paroxysmal atrial fibrillation 007040882 I48.0 on cardizem, xarelto, digoxin, follows cardiology - Dr. Zelaya Congestive heart failure 48589931 I50.9 as aboveon lasix and spironolac tone from cardiology Morbid obesity 054467337 E66.01 he has decided against bariatric surgeryHe is considerin g surgery again, he wants to do some research as to where he would like to be referred and he will call us when he is ready for a referralco ntinue diet/exerc ise efforts Polyneuropathy 15315508 G62.9 follows neurology- -Lizzie Winter with [facility] Essential hypertension 47774246 I10 on lisinopril , lasix, follows cardiology as above Testostero ne level below reference range 124217859 R89.1 on testostero ne, follows urology- Dr. Dunham Obstructiv e sleep apnea syndrome 44170805 G47.33 on CPAP- follows pulm for compliance - Belinda Alonzo Peripheral vascular disease 881564208 I73.9 follows cardiology as aboveappt with podiatry as above Type 2 roro betes mellitus 20231421 E11.9 now off metformin, working on lifestyle measuresfo sandrine podiatry for foot care Vitamin D deficiency 347 09178 E55.9 on supplement Vitamin B1 2 deficiency (non anemic) 50830286 E53.8 on supplement Gastroesop hageal reflux disease 666343131 K21.9 on omeprazole Major depr essive disorder 726855851 F32.9 on sertraline call office if any change in mood or behaviorde clines psychiatry referral at this time Asthma 161281292 J45.90 9 on Trelegy, follows pulm as above, on home O2 of 5L with activity and at night Hyperlipidemia 13448592 E78.5 on rosuvastat in Iron defic iency anemia 78320999 D50.9 on supplement now following hematology - Dr. Carrillo Dry skin dermatitis 2600 [address]56[address] L85.3 on ammonium lactate lotion to BLE Proteinuria 24883123 R80 .9 follows nephrology - Dr. Santana/George boswell Foot callus 174162035 L8 4 get appt with podiatry as above Pain of le ft shoulder joint [id number] 5910139 M25.512 He will call us with the name of the Ortho he wants to see, he does not want a referral at this time, wants to find someone in [place] or [facility] Concerns Section Related Observation LastModified by Organization Detai ls LastModified Time None Recorded Concern Status LastModified by Organization Details LastModified Time None Recorded Advance Directives Directive Y: living will Payers Encounter Date Sequence Insurance Name Policy Number Policy Marroquin Covered Member ID Marroquin Member ID Guarantor Name 09/27/2022 1 [facility] [place] [facility] (MEDICARE - MEDICAID REPLACEMENT HMO) [id number] Justo Hancock Jr [id number] Justo Hancock 12/19/2022 1 [facility] [place] [facility] (MEDICARE - MEDICAID REPLACEMENT O) [id number] Justo Hancock Jr [id number] Justo Hancock 01/31/2023 1 [facility] [place] [facility] (MEDICARE - MEDICAID REPLACEMENT O) [id number] Justo Hancock Jr [id number] Justo Hancock Notes Date Note Type Note [...] Zelaya for cardiology and Lizzie Best in [place] for neurology. He follows up again with [...] He is due for lab work today. VINNIE Grissom [address], [place], [address], [facility] [employer] 09/27/2022 15:25:53 12/19/2022 text/html Mr Hancock present [...] he still is unable to lie flat CHASE Lacey [address], [place], [address], [facility] [employer] [facility] 12/19/2022 15:55:31 01/31/2023 text/html This is a telehe alth visit conducted via telephone audio only. Patient agrees to telehealth visit. Justo presents today via telephone audio for follow-up. He was unable to make it into the office as he was unable to get a ride. He was hospitalized at [facility] beginning of December for acute on chronic respiratory failure and CHF. He was placed on BiPAP. He had never had to be intubated. He is now on home BiPAP. He did get set up with his new ssis etl developer, Dr. Zelaya. He reports they started him [...] person he wants to see. Jeniffer Veras, JEANIE-C [address], [place], [address], [facility] [employer] [facility] [employer] 01/31/2023 14:04:00
--- NOTE | 2024-10-10 07:17 | P.PNAN_ITS ---
Anes - Initial Pre Proc Eval Procedure: Operation Date: 10/10/24 10:30 Proposed Procedures p Screening Colonoscopy - Mars Griffin MD Date/Time: 10/10/24 07:17 Surgeon: Mars Griffin MD Pre Op Diagnosis: family hx malignant neoplasm digestive organs Patient Data Age: 58 Gender: M Height: 1.83 m Weight: 141.7 kg Allergies Allergy/AdvReac Type Severity Reaction Status Date / Time Penicillins AdvReac unknown Verified 10/10/24 09:03 Home Medications ?Medication ?Instructions ?Recorded ?Confirmed ?Type budesonide 0.5 mg/2 mL suspension 0.5 mg (2 mL) inhalation Q12HRT #1 12/15/22 10/10/24 Rx for nebulization (Pulmicort) inh nitroglycerin 0.4 mg sublingual 0.4 mg sublingual Q5MIN PRN Chest 12/15/22 09/19/24 Rx tablet (Nitrostat) Pain #25 tabs lisinopril 40 mg tablet See Rx Instructions .Route 01/07/24 10/10/24 Rx .COMPLEX #90 tabs spironolactone 25 mg tablet See Rx Instructions .Route 01/07/24 10/10/24 Rx .COMPLEX #90 tabs fluticasone propionate 50 1 spray intranasal DAILY #16 grams 05/16/24 10/10/24 Rx mcg/actuation nasal spray,suspension guaifenesin 400 mg tablet 400 mg PO QID PRN congestion #60 05/16/24 09/19/24 Rx tabs dofetilide 250 mcg capsule See Rx Instructions .Route 05/20/24 10/10/24 Rx .COMPLEX #180 caps ferrous sulfate 325 mg (65 mg 325 mg PO DAILY #90 tabs 05/21/24 10/10/24 Rx iron) tablet furosemide 40 mg tablet See Rx Instructions .Route 07/31/24 10/10/24 Rx .COMPLEX #90 tabs sertraline 100 mg tablet See Rx Instructions .Route 08/21/24 10/10/24 Rx .COMPLEX #90 tabs ammonium lactate 12 % topical cream See Rx Instructions .Route 08/26/24 10/10/24 Rx .COMPLEX #280 grams diltiazem HCl 240 mg capsule,24 See Rx Instructions .Route 09/10/24 10/10/24 Rx hr,extended release .COMPLEX #90 caps rivaroxaban 20 mg tablet (Xarelto) See Rx Instructions .Route 09/22/24 10/10/24 Rx .COMPLEX #30 tabs rosuvastatin 40 mg tablet See Rx Instructions .Route 10/07/24 10/10/24 Rx .COMPLEX #90 tabs azelastine 137 mcg (0.1 %) nasal See Rx Instructions .Route 10/10/24 10/10/24 Rx spray .COMPLEX #90 mL Patient hx anesthesia problems: none Family hx anesthesia problems: none Results Review: All pre-operative results and documents have been reviewed as part of the pre- operative evaluation. [facility] Past Medical History Medical History (Updated 10/10/24 @ 07:17 by Ok Oliveira DO) Neck pain Back pain PAF (paroxysmal atrial fibrillation) Right heart failure EF 65-70% Obstructive sleep apnea on CPAP Peripheral neuropathy Borderline diabetes Hemoglobin A1c in 2019 was 6.1%. Essential hypertension Anxiety and depression (~2016) Class 3 severe obesity with body mass index (BMI) of 50.0 to 59.9 in adult Surgical History Surgical History History of right inguinal hernia repair History of arthroscopy of right knee History of appendectomy Family History Family History Father Acute myocardial infarction, Onset Age: 48 Mother Family history of malignant neoplasm, Onset Age: 61 Grandparent Family history of malignant neoplasm, Onset Age: 58 Carcinoma of colon, Onset Age: 71 Family history of renal failure, Onset Age: 65 Cerebrovascular accident, Onset Age: 69 Social History Social History Social History: The patient lives in his own home in [place], [place]. 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 He is a lifelong nonsmoker. He drinks alcohol socially and in moderation. He denies drug use. He designates his significant other, Martita Fernández, is his surrogate decision maker and he wishes to be a full code. 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 Gender identity (if verbalized by the patient): Male Sexual Orientation (if Verbalized by the Patient): Straight or Heterosexual Spiritual care concerns: No Agree to blood products: Yes Anes - Eval Final PreProcedure Day of Procedure 10/10/24 07:17 Patient weight: morbidly obese Heart: regular rate and rhythm Lungs: clear to auscultation Airway: Mallampati scale class III Neurological: alert and oriented Last oral intake: >/= 8 hours ASA classification: III Emergent: no Anesthetic plan: proceed Anesthesia type and monitoring: general GIVS and standard monitoring Results Review: All pre-operative results and documents have been reviewed as part of the pre- operative evaluation. Informed Consent: The patient's anesthetic plan and its attendant risks and benefits were discussed with the patient/family/POA. Questions were solicited and answers provided to the satisfaction of the patient/family/POA.
[2024-10-10 09:06] VITALS: BP 119/84; PULSE 64; RESP 20; TEMP 36.7; O2SAT 98
[2024-10-10] MEDS: LACTATED RINGERS 1,000 ML 150 ML IV CONT (09:16)
--- NOTE | 2024-10-10 09:32 | PM.HPGS ---
History of Present Illness History of Present Illness Consent: Risks, benefits, and alternatives have been discussed and questions answered. Patient agrees to proceed with procedure. Chief complaint: family hx malignant neoplasm digestive organs Narrative: Justo Hancock Jr. is a 58 year old male with colon polyp 6-7 years ago Review of Systems Review of Systems: All systems reviewed & are unremarkable except as noted in HPI and below PMFSH Past Medical History Medical History (Updated 10/10/24 @ 09:33 by Mars Griffin MD) Colon polyp Neck pain Back pain PAF (paroxysmal atrial fibrillation) Right heart failure EF 65-70% Obstructive sleep apnea on CPAP Peripheral neuropathy Borderline diabetes Hemoglobin A1c in 2019 was 6.1%. Essential hypertension Anxiety and depression (~2017) Class 3 severe obesity with body mass index (BMI) of 50.0 to 59.9 in adult Surgical History Surgical History History of right inguinal hernia repair History of arthroscopy of right knee History of appendectomy Family History Family History Father Acute myocardial infarction, Onset Age: 48 Mother Family history of malignant neoplasm, Onset Age: 61 Grandparent Family history of malignant neoplasm, Onset Age: 58 Carcinoma of colon, Onset Age: 71 Family history of renal failure, Onset Age: 65 Cerebrovascular accident, Onset Age: 68 Social History Social History Social History: The patient lives in his own home in [place], [place]. 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 He is a lifelong nonsmoker. He drinks alcohol socially and in moderation. He denies drug use. He designates his significant other, Martita Fernández, is his surrogate decision maker and he wishes to be a full code. 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 Gender identity (if verbalized by the patient): Male Sexual Orientation (if Verbalized by the Patient): Straight or Heterosexual Spiritual care concerns: No Agree to blood products: Yes Meds Home Medications and Allergies Home Medications ?Medication ?Instructions ?Recorded ?Confirmed ?Type budesonide 0.5 mg/2 mL suspension 0.5 mg (2 mL) inhalation Q12HRT #1 12/15/22 10/10/24 Rx for nebulization (Pulmicort) inh nitroglycerin 0.4 mg sublingual 0.4 mg sublingual Q5MIN PRN Chest 12/15/22 09/19/24 Rx tablet (Nitrostat) Pain #25 tabs lisinopril 40 mg tablet See Rx Instructions .Route 01/07/24 10/10/24 Rx .COMPLEX #90 tabs spironolactone 25 mg tablet See Rx Instructions .Route 01/07/24 10/10/24 Rx .COMPLEX #90 tabs fluticasone propionate 50 1 spray intranasal DAILY #16 grams 05/16/24 10/10/24 Rx mcg/actuation nasal spray,suspension guaifenesin 400 mg tablet 400 mg PO QID PRN congestion #60 05/16/24 09/19/24 Rx tabs dofetilide 250 mcg capsule See Rx Instructions .Route 05/20/24 10/10/24 Rx .COMPLEX #180 caps ferrous sulfate 325 mg (65 mg 325 mg PO DAILY #90 tabs 05/21/24 10/10/24 Rx iron) tablet furosemide 40 mg tablet See Rx Instructions .Route 07/31/24 10/10/24 Rx .COMPLEX #90 tabs sertraline 100 mg tablet See Rx Instructions .Route 08/21/24 10/10/24 Rx .COMPLEX #90 tabs ammonium lactate 12 % topical cream See Rx Instructions .Route 08/26/24 10/10/24 Rx .COMPLEX #280 grams diltiazem HCl 240 mg capsule,24 See Rx Instructions .Route 09/10/24 10/10/24 Rx hr,extended release .COMPLEX #90 caps rivaroxaban 20 mg tablet (Xarelto) See Rx Instructions .Route 09/22/24 10/10/24 Rx .COMPLEX #30 tabs rosuvastatin 40 mg tablet See Rx Instructions .Route 10/07/24 10/10/24 Rx .COMPLEX #90 tabs azelastine 137 mcg (0.1 %) nasal See Rx Instructions .Route 10/10/24 10/10/24 Rx spray .COMPLEX #90 mL Allergies Allergy/AdvReac Type Severity Reaction Status Date / Time Penicillins AdvReac unknown Verified 10/10/24 09:03 Vital Signs Vital Signs - 24 hr 10/10/24 09:06 Temperature 98.0 F Pulse Rate 64 Respiratory Rate 20 Blood Pressure 119/84 Pulse Oximetry 98 Oxygen Delivery Room Air Exam Const: General: comfortable and no acute distress HENMT: Face/Nose/Sinus: Normal nares present Eyes: General: appearance normal, both eyes and all related structures Neck: Neck: no JVD Resp: Auscultation: clear to auscultation bilaterally Cardio: Rate: regular rate Rhythm: regular rhythm GI: Inspection: non-distended GI Palp: Yes Soft to palpation Skin: General skin exam: normal color Neuro: Speech: normal speech Extrem: General: normal to inspection Psych: Mental Status: mental status grossly normal Assessment and Plan Assessment and plan (1) Colon polyp: Code(s): K63.5 - Polyp of colon Status: Acute Assessment and Plan: colonoscopy
[2024-10-10 09:44] VITALS: BP 96/45; PULSE 57; RESP 15; O2SAT 95
[2024-10-10 09:54] VITALS: BP 104/46; PULSE 58; RESP 15; O2SAT 99
[2024-10-10 10:04] VITALS: BP 112/55; PULSE 62; RESP 20; O2SAT 99
--- NOTE | 2024-10-10 10:32 | SUR.PHASEII ---
patient stated i feel fine after asking how they feel. Patient ambulated to chair to dress and had no symptoms.
== END 2024-10-10 11:04 | disposition home or self-care (01) ==
PROVIDERS: PCP Nurse Practitioner Family; Referring Provider Nurse Practitioner Family; Visit Provider Internal Medicine Gastroenterology
PROC: 0DJD8ZZ Inspection of Lower Intestinal Tract, Via Natural or Artificial Opening Endoscopic (ICD-10-PCS; CPT 45378; principal; 2024-10-10 10:30)
DX: Z12.11 Encounter for screening for malignant neoplasm of colon (principal); K57.30 Diverticulosis of large intestine without perforation or abscess without bleeding; Z86.0100 Personal history of colon polyps, unspecified
CPT/HCPCS: G0105; J2704; J7120

== ENCOUNTER 2024-11-28 10:51 | Outpatient (CLI) | payer MEDICARE, MEDICAID, SELFPAY ==
--- NOTE | ~2024-11-28 | CT_ITS ---
EXAMINATION: CT sinus wo con DATE: 11/28/2024 11:38 INDICATION: Chronic sinusitis TECHNIQUE: Computed tomography (CT) of the paranasal sinuses was performed without intravenous contra st. The dose-length product was 261.01 mGy-cm. Automated exposure control and iterative reconstructio n technique were employed. COMPARISON: None FINDINGS: There is no significant mucosal thickening of the paranasal sinuses. No air-fluid levels. O stiomeatal units are patent. No air-fluid levels. No mucoperiosteal reaction. Mastoids are pneumatize d. IMPRESSION: 1. No significant sinus disease. Reviewed, dictated and finalized at location B.
--- OUTSIDE RECORDS SUMMARY | 2024-11-28 10:54 | XMS_ITS | Clinical Summary ---
Author Organization [facility] Brad urrutia [facility] Address [address] [place] [address] Care Team Providers Care Popped Corn Oven Attendant Name Role Phone Unavailable Primary Care Provider Unavailabl e Social History Tobacco Use Types Packs/Day Years Used Date Smoking Tobacco: Never Assessed Sex and Gender Information Value Date Recorded Sex Assigned at Not on file Legal Sex Male 8:34 AM CDT Gender Identity Not on file Sexual Orientation Not on file Plan of Treatment Upcoming Encounters Date Type Department Care Team (Late st Contact Info) Description 12/31/2024 11:30 AM CDT Office Visit [facility] Bariatrics and General Surgery at the [facility] [address] [place] [address] Marjorie Brown MD [address] [place] [address] Health Maintenance Due Date Last Done Comments DTAP/TDAP/TD VACCINES (1 - Tdap) 1985 HEPATITIS B VACCINES (1 of 3 - 19+ 3-dose series) 10/13 COLORECTAL SCREENING 11/08/2011 Colorectal Cancer Screening 11/08/2011 FIT-DNA Q 3 years 11/08/2011 FIT/FOBT Q 1 year 11/08/2011 Flex Sig/CT Colonography Q 5 years 11/08/2011 ZOSTER VACCINE (1 of 2) 2016 INFLUENZA VACCINE (#1) 2024 Insurance [place]
--- OUTSIDE RECORDS SUMMARY | 2024-11-28 10:54 | XMS_ITS | Clinical Summary ---
Author Organization [facility] Address [address] [place] [address] Care Team Providers Care Desktop Engineer Name Role Phone Jeniffer Veras NP Primary Care Provider [phone] Allergies Active Allergy Reactions Criticality Noted Date [...] patient's age to complete this topic Insurance [employer] Advance Directives * Full Code (Latest Code Status on File) Date Activated Date Inactivated Comments 11/24/2021 2:21 PM Care Teams Desktop Engineer Relationship Specialty Start Date End Date Jenfifer Veras NP [facility] [place] [address] PCP - General NURSE PRACTITIONER 09/01/21
--- OUTSIDE RECORDS SUMMARY | 2024-11-28 10:54 | XMS_ITS | Clinical Summary ---
Author Organization [facility] Address [address] [place] [address] Phone Care Team Providers Care Marketing Admin Name Role Phone Unavailable Primary Care Provider [...] the evening. 07/08/2020 Active ergocalciferol 1.25 MG (33698 UT) capsule Take 1 capsule by mouth [...] Comments Blood Pressure 112/68 06/06/2022 11:19 AM RESTAURANT WORKER Pulse 81 06/06/2022 11:19 AM RESTAURANT WORKER Temperature 36.1 C (97 F) 06/06/2022 11:19 AM RESTAURANT WORKER Respiratory Rate 22 06/06/2022 11:1 9 AM RESTAURANT WORKER Oxygen Saturation 95% 06/06/2022 11: 19 AM RESTAURANT WORKER Inhaled Oxygen Concentration - - Weight 182 kg (402 lb) 06/06/2022 11:19 AM RESTAURANT WORKER Patient in a wheelchair. Height 181.6 cm (5' 11.5) 06/06/2022 1 1:19 AM RESTAURANT WORKER Body Mass Index 55.29 06/06/2022 11:19 AM RESTAURANT WORKER Plan of Treatment Health Maintenance Due [...] 09/03/2022 023, 01/11/2022, 10/13/2020 Influenza Vaccine (#1) 2025 2, 04/25/2021, 02/14/2020, Additional history exists Pneumococcal Vaccine: [...] 10.7 mg/dL Phosphorus, Serum 3.8 eGFR Non-Afr British >60 Osmolality Calc 288.0 mosm/kg Hemoglobin A1C [...]
--- OUTSIDE RECORDS SUMMARY | 2024-11-28 10:54 | XMS_ITS | Clinical Summary ---
Author Organization [facility] Address [address] [place] [address] Care Team Providers Care Veneer Taper Name Role Phone Jose Naidu MD Primary Care Prov ider Source Comments [facility],non-owned Affiliates and Associated Physician Practices is amultiple site organization consisting of ambulatory clinics and hospital sitesin [place], [place], [place] and [place]. This disclosure is being madepursuant to the Care Everywhere program and may not contain all information available regarding this patient. Last updated 18.[facility] Allergies Active Allergy Reactions Criticality Noted Date Comments Penicillins 02/02/2011 Medications * Be aware that medications may not be up to date on this document. Alwaysverify current medications with the patient. mometasone (NASONEX) 50 MCG/ACT nasal sprayIndication s:Congestion,AR (allergic rhinitis) [place] 2 Sprays into each nostril once daily. [...] on file Legal Sex Male 11:47 AM DISPATCHER BUS AND TROLLEY Gender Identity Not on file Sexual Orientation Not on file Last Filed Vital Signs Vital Sign Reading Time Taken Comments Blood Pressure 121/81 06/03/2011 7:14 AM DISPATCHER BUS AND TROLLEY Pulse 55 06/03/2011 7:14 AM DISPATCHER BUS AND TROLLEY Temperature 36.4 C (97.6 F) 06/03/2011 7:14 AM DISPATCHER BUS AND TROLLEY Respiratory Rate 20 06/03/2011 7:14 AM DISPATCHER BUS AND TROLLEY Oxygen Saturation 96% 06/03/2011 7:14 AM DISPATCHER BUS AND TROLLEY Inhaled Oxygen Concentration - - Weight 117.9 kg (260 lb) 06/01/2011 11:54 AM DISPATCHER BUS AND TROLLEY Height 185.4 cm (6' 1) 06/01/2011 11:54 AM DISPATCHER BUS AND TROLLEY Body Mass Index 34.3 06/01/2011 11:54 AM DISPATCHER BUS AND TROLLEY Plan of Treatment Health Maintenance Due Date [...] 2023-2 5 season) 2024 DEPRESSION SCREENING 05/14/2024 MEDICARE AWV CALENDAR YEAR 2024 INFLUENZA VACCINE (#1) 2025 HIB VACCINE Aged Out No longer [...] PM CDT Narrative Resulting Agency Comment [facility] [address] [id number] [place] Murphy Valadez MD LAB - BODY FLUID ORDERABLES Fi nal Result [facility] ACCOUNT BILL [address] [place] [address] * (ABNORMAL) LIPID PROFILE (02/02/2011 1:27 PM [...] PM CDT Narrative Resulting Agency Comment [facility] [address] [id number] Murphy Valadez MD LAB - CHEMISTRY ORDERABLES Nehemiah al Result [facility] ACCOUNT BILL [address] [place] [address] from Last 3 Months or Most Recently Relevant to Health Maintenance Insurance [facility] [employer] MED[place]ARE D[place] Advance Directives * FULL RESUSCITATION (Latest Code Status on File) Date Activated Date Inactivated Comments 06/01/2011 5:59 PM 06/04/2011 12:05 AM Care Teams Veneer Taper Relationship Specialty [place] [address] [address] PCP - General 10/18/20
[2024-11-28 12:51] LABS: Hematocrit 34.1 % (40.0-54.0); Hemoglobin 11.2 g/dL (14.0-18.0); Immature Granulocyte Percent A 0.6 % (0.0-0.0); Lymphocytes Absolute Auto 1.19 K/mm3 (1.10-4.50); Mean Corpuscular HGB Conc 32.8 g/dL (32-36); Mean Corpuscular Hemoglobin 28.6 pg (27.0-31.0); Mean Corpuscular Volume 87.2 fL (78.0-102.0); Nucleated Red Blood Cells Absolute Auto 0.00 K/mm3 (0.00-0.00); Nucleated Red Blood Cells Perc 0.0 % (0-0.0); Platelet Count Result 249 K/mm3 (150-420); Red Blood Count 3.91 M/mm3 (4.70-6.10); White Blood Count 9.0 K/mm3 (4.8-10.8)
[2024-11-28 12:59] LABS: Iron 66 ug/dL (49-181)
[2024-11-28 13:00] LABS: Alanine Aminotransferase 37 U/L (6-50); Albumin Level 4.3 g/dL (3.5-5.1); Alkaline Phosphatase 110 U/L (38-126); Anion Gap 9 mmol/L (4-12); Aspartate Amino Transferase 28 U/L (17-59); Bilirubin,Total 0.6 mg/dL (0.2-1.3); Blood Urea Nitrogen 20 mg/dL (9-20); Calcium 9.2 mg/dL (8.4-10.2); Carbon Dioxide 20 mmol/L (22-30); Chloride 106 mmol/L (98-107); Estimated Glomerular Filt Rate > 60; Glucose 94 mg/dL (65-110); Osmolality Calculated 282 mOsm/kg (285-295); Potassium 4.5 mmol/L (3.4-5.0); Sodium 135 mmol/L (137-145); Total Protein 7.1 g/dL (6.3-8.2)
[2024-11-28 13:09] LABS: Percent Iron Saturation 25 % (20-50)
[2024-12-02 14:09] LABS: Anti-MPO Antibodies <0.2 units (0.0-0.9); Anti-PR3 Antibodies <0.2 units (0.0-0.9); Saccharomyces cerevisiae, IgA <20.0 Units (0.0-24.9); Saccharomyces cerevisiae, IgG <20.0 Units (0.0-24.9)
== END 2024-11-28 10:52 | disposition home or self-care (01) ==
PROVIDERS: PCP Nurse Practitioner Family; Visit Provider Otolaryngology
DX: J32.9 Chronic sinusitis, unspecified (principal); J34.89 Other specified disorders of nose and nasal sinuses; J34.3 Hypertrophy of nasal turbinates; J34.2 Deviated nasal septum; R09.81 Nasal congestion; D72.829 Elevated white blood cell count, unspecified; E87.8 Other disorders of electrolyte and fluid balance, not elsewhere classified; D50.9 Iron deficiency anemia, unspecified; M30.1 Polyarteritis with lung involvement [Churg-Strauss]
CPT/HCPCS: 36415; 70486; 80053; 83540; 83550; 85025; 86036; 86037; 86364; 86671

== ENCOUNTER 2024-12-16 08:41 | Outpatient (CLI) | payer MEDICARE, MEDICAID, SELFPAY ==
--- NOTE | ~2024-12-16 | XR_ITS ---
Lumbosacral Spine: AP and lateral views Clinical History: Pain Findings: The normal lordotic curve is maintained. The vertebral bodies and posterior elements are i ntact. The intervertebral disc spaces are preserved. The sacroiliac joints are normally outlined. Impression: No significant abnormality. Reviewed, dictated and finalized at [facility]. Impression: No significant abnormality.
--- NOTE | ~2024-12-16 | XR_ITS ---
Cervical Spine: AP, lateral, open-mouth views Clinical History: Pain Findings: The normal lordotic curve is maintained. The vertebral bodies and posterior elements appea r intact. The intervertebral disc spaces are well maintained. Pre-vertebral soft tissues are unremar kable. Impression: No significant abnormality is seen. Reviewed, dictated and finalized at [facility]. Impression: No significant abnormality is seen.
--- OUTSIDE RECORDS SUMMARY | 2024-12-16 08:46 | XMS_ITS | Clinical Summary ---
Author Organization [facility] Brad urrutia [facility] Address [address] [place] [address] Care Team Providers Care Clinical Coordinator Name Role Phone Unavailable Primary Care Provider Unavailabl e Encounters Date Type Department Care Team Description 12/09/2024 Chart Note [facility] Bariatrics and General Surgery at the [facility] [address] [place] [address] RD [address] [place] [phone] Marjorie Brown MD from Last 3 Months [...] Team (Late st Contact Info) Description 12/31/2024 11:45 AM CDT Office Visit [facility] Bariatrics and General Surgery at the [facility] [address] [place] [address] Marjorie Brown MD [address] [place] [address] Rd [address] [place] [address] Health Maintenance Due Date Last [...]
--- OUTSIDE RECORDS SUMMARY | 2024-12-16 08:46 | XMS_ITS | Clinical Summary ---
Author Organization [facility] Address [address] [place] [address] Care Team Providers Care Packer Name Role Phone Jeniffer Veras NP Primary Care Provider [phone] Allergies Active Allergy Reactions Criticality Noted Date [...] Inactivated Comments 11/24/2021 2:21 PM Care Teams Packer Relationship Specialty Start Date End Date Jeniffer Veras NP [facility] [place] [address] PCP - General NURSE PRACTITIONER 09/01/21
--- OUTSIDE RECORDS SUMMARY | 2024-12-16 08:46 | XMS_ITS | Clinical Summary ---
Author Organization [facility] Address [address] [place] [address] Phone Care Team Providers Care High School Admissions Representative Name Role Phone Unavailable Primary Care Provider [...] the evening. 07/08/2020 Active ergocalciferol 1.25 MG (24706 UT) capsule Take 1 capsule by mouth [...] Comments Blood Pressure 112/68 06/06/2022 11:19 AM NATIONAL SALES Pulse 81 06/06/2022 11:19 AM NATIONAL SALES Temperature 36.1 C (97 F) 06/06/2022 11:19 AM NATIONAL SALES Respiratory Rate 22 06/06/2022 11:1 9 AM NATIONAL SALES Oxygen Saturation 95% 06/06/2022 11: 19 AM NATIONAL SALES Inhaled Oxygen Concentration - - Weight 182 kg (402 lb) 06/06/2022 11:19 AM NATIONAL SALES Patient in a wheelchair. Height 181.6 cm (5' 11.5) 06/06/2022 1 1:19 AM NATIONAL SALES Body Mass Index 55.29 06/06/2022 11:19 AM NATIONAL SALES Plan of Treatment Health Maintenance Due Date [...] 10.7 mg/dL Phosphorus, Serum 3.8 eGFR Non-Afr [place]i >60 Osmolality Calc 288.0 mosm/kg Hemoglobin A1C [...]
--- OUTSIDE RECORDS SUMMARY | 2024-12-16 08:46 | XMS_ITS | Clinical Summary ---
Author Organization [facility] Address [address] [place] [address] Care Team Providers Care Shoe Repairer Name Role Phone Jose Naidu MD Primary Care Prov ider Source Comments [facility],non-owned Affiliates and Associated Physician Practices is amultiple site organization consisting of ambulatory clinics and hospital sitesin [place], [place], [place] and [place]. This disclosure is being madepursuant to the Care Everywhere program and may not contain all information available regarding this patient. Last updated 18.[facility] Allergies Active Allergy Reactions Criticality Noted Date Comments Penicillins 02/02/2011 Medications * Be aware that medications may not be up to date on this document. Alwaysverify current medications with the patient. mometasone (NASONEX) 50 MCG/ACT nasal sprayIndication s:Congestion,AR (allergic rhinitis) [place] 2 Sprays into each nostril once daily. [...] on file Legal Sex Male 11:47 AM RESIDENTIAL LEASING MANAGER Gender Identity Not on file Sexual Orientation Not on file Last Filed Vital Signs Vital Sign Reading Time Taken Comments Blood Pressure 121/81 06/03/2011 7:14 AM RESIDENTIAL LEASING MANAGER Pulse 55 06/03/2011 7:14 AM RESIDENTIAL LEASING MANAGER Temperature 36.4 C (97.6 F) 06/03/2011 7:14 AM RESIDENTIAL LEASING MANAGER Respiratory Rate 20 06/03/2011 7:14 AM RESIDENTIAL LEASING MANAGER Oxygen Saturation 96% 06/03/2011 7:14 AM RESIDENTIAL LEASING MANAGER Inhaled Oxygen Concentration - - Weight 117.9 kg (260 lb) 06/01/2011 11:54 AM RESIDENTIAL LEASING MANAGER Height 185.4 cm (6' 1) 06/01/2011 11:54 AM RESIDENTIAL LEASING MANAGER Body Mass Index 34.3 06/01/2011 11:54 AM RESIDENTIAL LEASING MANAGER Plan of Treatment Health Maintenance Due Date [...] PM CDT Narrative Resulting Agency Comment [facility] [address] [phone] us Murphy Valadez MD LAB - BODY FLUID ORDERABLES Fi nal Result [facility] ACCOUNT BILL [address] [place] [address] * (ABNORMAL) LIPID PROFILE (02/02/2011 1:27 PM [...] PM CDT Narrative Resulting Agency Comment [facility] [address] [phone] Murphy Valadez MD LAB - CHEMISTRY ORDERABLES Nehemiah al Result [facility] ACCOUNT BILL [address] [place] [address] from Last 3 Months or Most Recently Relevant to Health Maintenance Insurance [employer] MED[place] DUAL AD[place] Advance Directives * FULL RESUSCITATION (Latest Code Status on File) Date Activated Date Inactivated Comments 06/01/2011 5:59 PM 06/04/2011 12:05 AM Care Teams Shoe Repairer Relationship Specialty [place] [address] [address] PCP - General 10/18/20
[2024-12-16 10:46] LABS: Glucose 1 Hour 153 mg/dL
[2024-12-16 10:56] LABS: Vitamin B12 908.0 pg/mL (239-931)
[2024-12-16 12:31] LABS: Glucose 2 Hour 122 mg/dL
[2024-12-17 18:08] LABS: ANA by IFA Rfx Titer/Pattern Negative (.)
[2024-12-18 15:09] LABS: Immunoglobulin A, Qn 299 mg/dL (90-386); Immunoglobulin G, Qn 1321 mg/dL (603-1613); Immunoglobulin M, Qn 79 mg/dL (20-172)
[2024-12-21 11:08] LABS: Vit. B1, Whole Blood 108.3 nmol/L (66.5-200.0)
== END 2024-12-16 08:42 | disposition home or self-care (01) ==
PROVIDERS: PCP Nurse Practitioner Family; Visit Provider Psychiatry & Neurology Neurology
DX: G62.9 Polyneuropathy, unspecified (principal); M54.9 Dorsalgia, unspecified; M54.2 Cervicalgia; M47.816 Spondylosis without myelopathy or radiculopathy, lumbar region; I48.0 Paroxysmal atrial fibrillation; Z13.1 Encounter for screening for diabetes mellitus
CPT/HCPCS: 36415; 72040; 72100; 82607; 82746; 82784; 82951; 83090; 84207; 84425; 86038; 86200; 86334; 86431

== ENCOUNTER 2024-12-16 11:21 | Outpatient (RCR) | payer MEDICARE, MEDICAID, SELFPAY ==
--- NOTE | 2024-12-16 15:13 | OPREHPOC ---
Outpatient Therapy Plan of Care This is a Multidisciplinary Plan of Care that may contain components documented by all disciplines (PT, OT, and ST.) PT Problem 1 PT Problem #1 Knowledge Deficit PT Goal 1 Goal / Goal Update The patient will be independent in a home exercise program. Target Visit 4 PT Problem 2 PT Problem #2 Pain PT Goal 1 Goal / Goal Update The patient will report no greater than 3/10 cervical and lumbar pain with sitting over an hour and when sleeping. Target Visit 12 PT Problem 3 PT Problem #3 Impaired Functional Mobility PT Goal 1 Goal / Goal Update The patient will demonstrate 30% or less self perceived disability per the Neck and Back Index questionnaires. The patient will report ability to sleep with 2/10 or less cervical pain. The patient will be able to sit for 1+ hour with 2 /10 or less lumbar pain. Target Visit 12 PT Problem 4 PT Problem #4 Impaired Strength PT Goal 1 Goal / Goal Update Pt to improve upper and lower abdominal strength to 4-/5 or greater to support the lumbar spine.
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
--- NOTE | 2025-01-29 07:44 | PCPTNOTE ---
Mr. Hancock attended 2 skilled PT visits addressing chronic neck and lower back pain. He contacted the clinic on 12/22/2024 and stated that he reviewed his x-rays with his MD and that nothing can be done for his neck or back, and he felt that he was satisfied with his care in PT but there wasn't anything he couldn't do at home and he requested to be discharged. Nidhi Abrams, DPT 01/29/2025
== END 2024-12-19 10:54 | disposition home or self-care (01) ==
LOC: CHSPT 11:21
PROVIDERS: Visit Provider Nurse Practitioner Adult Health
DX: M54.9 Dorsalgia, unspecified (principal); M54.2 Cervicalgia
CPT/HCPCS: 97110; 97161; 97530

== ENCOUNTER 2024-12-31 11:13 | Outpatient (CLI) | payer MEDICARE, MEDICAID, SELFPAY ==
--- NOTE | 2024-12-31 11:18 | ECG_ITS ---
Test Date: 2024-12-31 11:26:52 Measurements Intervals [place] Rate: 62 P: 60 PA: 201 QRS: 57 QRSD: 100 T: 27 QT: 518 QTc: 528 Interpretive Statements SINUS RHYTHM MINIMAL ST DEPRESSION IN ANTEROLAT/INF LEADS PROLONGED QT INTERVAL ABNORMAL ECG Compared to ECG 09/16/2024 10:19:01 Prolonged QT interval now present Electronically Signed On 12-31-2024 11:46:02 CDT by Moose Zelaya D.O.
--- OUTSIDE RECORDS SUMMARY | 2024-12-31 11:48 | XMS_ITS | Clinical Summary ---
Author Organization [facility] Address [address] [place] [address] Care Team Providers Care Digital Art Director Name Role Phone Jeniffer Veras NP Primary Care Provider [phone] Allergies Active Allergy Reactions Criticality Noted Date [...] Inactivated Comments 11/24/2021 2:21 PM Care Teams Digital Art Director Relationship Specialty Start Date End Date Jeniffer Veras NP [facility] [place] [address] PCP - General NURSE PRACTITIONER 09/01/21
--- OUTSIDE RECORDS SUMMARY | 2024-12-31 11:48 | XMS_ITS | Clinical Summary ---
Author Organization [facility] Address [address] [place] [address] Care Team Providers Care Rail Track Maintainer Name Role Phone Jose Naidu MD Primary Care Prov ider Source Comments [facility],non-owned Affiliates and Associated Physician Practices is amultiple site organization consisting of ambulatory clinics and hospital sitesin [place], [place], [place] and [place]. This disclosure is being madepursuant to the Care Everywhere program and may not contain all information available regarding this patient. Last updated 18.[facility] Allergies Active Allergy Reactions Criticality Noted Date Comments Penicillins 02/02/2011 Medications * Be aware that medications may not be up to date on this document. Alwaysverify current medications with the patient. mometasone (NASONEX) 50 MCG/ACT nasal sprayIndication s:Congestion,AR (allergic rhinitis) [place] 2 Sprays into each nostril once daily. [...] on file Legal Sex Male 11:47 AM DORMITORY MAID Gender Identity Not on file Sexual Orientation Not on file Last Filed Vital Signs Vital Sign Reading Time Taken Comments Blood Pressure 121/81 06/03/2011 7:14 AM DORMITORY MAID Pulse 55 06/03/2011 7:14 AM DORMITORY MAID Temperature 36.4 C (97.6 F) 06/03/2011 7:14 AM DORMITORY MAID Respiratory Rate 20 06/03/2011 7:14 AM DORMITORY MAID Oxygen Saturation 96% 06/03/2011 7:14 AM DORMITORY MAID Inhaled Oxygen Concentration - - Weight 117.9 kg (260 lb) 06/01/2011 11:54 AM DORMITORY MAID Height 185.4 cm (6' 1) 06/01/2011 11:54 AM DORMITORY MAID Body Mass Index 34.3 06/01/2011 11:54 AM DORMITORY MAID Plan of Treatment Health Maintenance Due Date [...] PM CDT Narrative Resulting Agency Comment [facility] [address] [facility] [id number] us Murphy Valadez MD LAB - BODY FLUID ORDERABLES Fi nal Result [facility] ACCOUNT BILL [address] [place] [address] * (ABNORMAL) LIPID PROFILE (02/02/2011 1:27 PM [...] PM CDT Narrative Resulting Agency Comment [facility] [address] [facility] [id number] Murphy Valadez MD LAB - CHEMISTRY ORDERABLES Nehemiah al Result [facility] ACCOUNT BILL [address] [place] [address] from Last 3 Months or Most Recently Relevant to Health Maintenance Insurance [facility] [place] MEDICARE DUAL ADV [place] Advance Directives * FULL RESUSCITATION (Latest Code Status on File) Date Activated Date Inactivated Comments 06/01/2011 5:59 PM 06/04/2011 12:05 AM Care Teams Rail Track Maintainer Relationship Specialty [place] [address] [address] PCP - General 10/18/20
--- OUTSIDE RECORDS SUMMARY | 2024-12-31 11:48 | XMS_ITS | Clinical Summary ---
Author Organization [facility] , [facility] Address [address] [facility] [address] [place] [address] Phone Care Team Providers Care Chief Operator Reformer Name Role Phone Unavailable Primary Care Provider [...] the evening. 07/08/2020 Active ergocalciferol 1.25 MG (55446 UT) capsule Take 1 capsule by mouth [...] Comments Blood Pressure 112/68 06/06/2022 11:19 AM FOIL SPINNER Pulse 81 06/06/2022 11:19 AM FOIL SPINNER Temperature 36.1 C (97 F) 06/06/2022 11:19 AM FOIL SPINNER Respiratory Rate 22 06/06/2022 11:1 9 AM FOIL SPINNER Oxygen Saturation 95% 06/06/2022 11: 19 AM FOIL SPINNER Inhaled Oxygen Concentration - - Weight 182 kg (402 lb) 06/06/2022 11:19 AM FOIL SPINNER Patient in a wheelchair. Height 181.6 cm (5' 11.5) 06/06/2022 1 1:19 AM FOIL SPINNER Body Mass Index 55.29 06/06/2022 11:19 AM FOIL SPINNER Plan of Treatment Health Maintenance Due Date [...] 10.7 mg/dL Phosphorus, Serum 3.8 eGFR Non-Afr [place]yan >60 Osmolality Calc 288.0 mosm/kg Hemoglobin A1C [...]
--- OUTSIDE RECORDS SUMMARY | 2024-12-31 11:48 | XMS_ITS | Clinical Summary ---
Author Organization [facility] Address [address] [place] [address] Care Team Providers Care Shop Director Name Role Phone Unavailable Primary Care Provider Unavailabl e Encounters Date Type Department Care Team Description 12/09/2024 Chart Note [facility] Bariatrics and General Surgery at the [facility] [address] [place] [address] Marjorie Brown MD from Last 3 Months Social History Tobacco Use Types Packs/Day Years Used Date Smoking Tobacco: Never Assessed Sex and Gender Information Value Date Recorded Sex Assigned at Not on file Legal Sex Male 8:34 AM CDT Gender Identity Not on file Sexual Orientation Not on file Plan of Treatment Health Maintenance Due Date [...]
== END 2024-12-31 11:14 | disposition home or self-care (01) ==
PROVIDERS: PCP Nurse Practitioner Family; Visit Provider Internal Medicine Cardiovascular Disease
DX: I48.0 Paroxysmal atrial fibrillation (principal); R92.8 Other abnormal and inconclusive findings on diagnostic imaging of breast
CPT/HCPCS: 93005

== ENCOUNTER 2025-01-28 09:35 | Outpatient (CLI) | payer MEDICARE, MEDICAID, SELFPAY ==
--- NOTE | ~2025-01-28 | XR_ITS ---
Examination: XR chest 2V Clinical History: J44.9 - Chronic obstructive pulmonary disease, unspecified Comparison: 12/13/2019 Technique: PA and Lateral Findings: Cardiomediastinal silhouette normal size and configuration. Lungs clear. No acute bony abnormality. IMPRESSION: 1. No acute cardiopulmonary findings. Reviewed, dictated and finalized at location R.
--- NOTE | 2025-01-28 09:42 | ECG_ITS ---
Test Date: 2025-01-28 09:50:19 Measurements Intervals [place] Rate: 56 P: 36 [place]: 216 QRS: 38 QRSD: 111 T: -1 QT: 423 QTc: 409 Interpretive Statements SINUS BRADYCARDIA WITH FIRST DEGREE AV BLOCK MODERATE INTRAVENTRICULAR CONDUCTION DELAY [110+ ms QRS DURATION] NONSPECIFIC T-WAVE ABNORMALITY ABNORMAL ECG Electronically Signed On 01-28-2025 13:10:36 CDT by Madi Naranjo M.D.
[2025-01-28 10:00] VITALS: PULSE 82; O2SAT 97
[2025-01-28 10:02] VITALS: PULSE 113; O2SAT 93
[2025-01-28 10:04] VITALS: PULSE 115; O2SAT 92
[2025-01-28 10:06] VITALS: PULSE 130; O2SAT 93
--- OUTSIDE RECORDS SUMMARY | 2025-01-28 10:30 | XMS_ITS | Clinical Summary ---
Author Organization [facility] Address [address] [place] [address] Care Team Providers Care Retirement Actuary Name Role Phone Jose Naidu MD Primary Care Prov ider Source Comments [facility],non-owned Affiliates and Associated Physician Practices is amultiple site organization consisting of ambulatory clinics and hospital sitesin [place], [place], [place] and [place]. This disclosure is being madepursuant to the Care Everywhere program and may not contain all information available regarding this patient. Last updated 18.[facility] Allergies Active Allergy Reactions Criticality Noted Date Comments Penicillins 02/02/2011 Medications * Be aware that medications may not be up to date on this document. Alwaysverify current medications with the patient. mometasone (NASONEX) 50 MCG/ACT nasal sprayIndication s:Congestion,AR (allergic rhinitis) [place] 2 Sprays into each nostril once daily. [...] on file Legal Sex Male 11:47 AM CONFIGURATION MANAGEMENT ANALYST Gender Identity Not on file Sexual Orientation Not on file Last Filed Vital Signs Vital Sign Reading Time Taken Comments Blood Pressure 121/81 06/03/2011 7:14 AM CONFIGURATION MANAGEMENT ANALYST Pulse 55 06/03/2011 7:14 AM CONFIGURATION MANAGEMENT ANALYST Temperature 36.4 C (97.6 F) 06/03/2011 7:14 AM CONFIGURATION MANAGEMENT ANALYST Respiratory Rate 20 06/03/2011 7:14 AM CONFIGURATION MANAGEMENT ANALYST Oxygen Saturation 96% 06/03/2011 7:14 AM CONFIGURATION MANAGEMENT ANALYST Inhaled Oxygen Concentration - - Weight 117.9 kg (260 lb) 06/01/2011 11:54 AM CONFIGURATION MANAGEMENT ANALYST Height 185.4 cm (6' 1) 06/01/2011 11:54 AM CONFIGURATION MANAGEMENT ANALYST Body Mass Index 34.3 06/01/2011 11:54 AM CONFIGURATION MANAGEMENT ANALYST Plan of Treatment Health Maintenance Due Date [...] 2016 ZOSTER VACCINE (1 of 2) 2016 DEPRESSION SCREENING 05/14/2024 MEDICARE AWV CALENDAR YEAR 2024 COVID-19 VACCINE (1 - 2023-2 5 season) 2025 INFLUENZA VACCINE (#1) 2025 HIB VACCINE Aged [...] PM CDT Narrative Resulting Agency Comment [facility] [address] [facility] [id number] Murphy Valadez MD LAB - BODY FLUID ORDERABLES Fi nal Result [facility] ACCOUNT BILL [address] [place] [address] * (ABNORMAL) LIPID PROFILE (02/02/2011 1:27 PM [...] PM CDT Narrative Resulting Agency Comment [facility] [address] [facility] [id number] Murphy Valadez MD LAB - CHEMISTRY ORDERABLES Nehemiah al Result [facility] ACCOUNT BILL [address] [place] [address] from Last 3 Months or Most Recently Relevant to Health Maintenance Insurance [facility] [place] MEDICARE DUAL ADV [place] Advance Directives * FULL RESUSCITATION (Latest Code Status on File) Date Activated Date Inactivated Comments 06/01/2011 5:59 PM 06/04/2011 12:05 AM Care Teams Retirement Actuary Relationship Specialty [place] [id number] [address] PCP - General 10/18/20
--- OUTSIDE RECORDS SUMMARY | 2025-01-28 10:30 | XMS_ITS | Clinical Summary ---
Author Organization [facility] Address [address] [place] [address] Care Team Providers Care Hand Shaker Name Role Phone Unavailable Primary Care Provider Unavailabl e Encounters Date Type Department Care Team Description 12/09/2024 Chart Note [facility] Bariatrics and General Surgery at the [facility] [address] [facility] [address] [place] [address] Marjorie Brown MD from Last [...]
--- OUTSIDE RECORDS SUMMARY | 2025-01-28 10:30 | XMS_ITS | Clinical Summary ---
Author Organization [facility] Address [address] [facility] [address] [place] [address] Phone Care Team Providers Care Airplane Navigator Name Role Phone Unavailable Primary Care Provider [...] the evening. 07/08/2020 Active ergocalciferol 1.25 MG (22785 UT) capsule Take 1 capsule by mouth [...] Comments Blood Pressure 112/68 06/06/2022 11:19 AM DELIVERY REP Pulse 81 06/06/2022 11:19 AM DELIVERY REP Temperature 36.1 C (97 F) 06/06/2022 11:19 AM DELIVERY REP Respiratory Rate 22 06/06/2022 11:1 9 AM DELIVERY REP Oxygen Saturation 95% 06/06/2022 11: 19 AM DELIVERY REP Inhaled Oxygen Concentration - - Weight 182 kg (402 lb) 06/06/2022 11:19 AM DELIVERY REP Patient in a wheelchair. Height 181.6 cm (5' 11.5) 06/06/2022 1 1:19 AM DELIVERY REP Body Mass Index 55.29 06/06/2022 11:19 AM DELIVERY REP Plan of Treatment Health Maintenance Due Date [...] 10.7 mg/dL Phosphorus, Serum 3.8 eGFR Non-Afr Italian >60 Osmolality Calc 288.0 mosm/kg Hemoglobin A1C [...]
--- NOTE | 2025-02-26 14:50 | WPDPFTINT ---
PFT Procedure Performed PFT Procedure Performed Spirometry with Pre/Post Bronchodilator Plethysmography (Lung Vol) Diffusing Cap (DLCO) Flow Vol Loop PFT Interpretation DOS: 01/28/2025 REQUESTING: Dr. Mosqueda REASON FOR TESTING: shortness of breath PULMONARY FUNCTION TESTS Results are reliable and reproducible. Repeatability of spirometry FEV1 maneuver pre and post bronchodilator is Grade A. Sunshine Cotton Dust reference equations were used. Spirometry: The pre-bronchodilator FEV1 is 2.60 L, 72%. The pre-bronchodilator FVC is 3.64 L, 80%. The FEV1/FVC ratio is 71%. After bronchodilator, the FEV1 is 2.71 L, 75%, +4%. The post-bronchodilator FVC is 3.47 L, 76%, -5%. The FEV1/FVC ratio is 78% after bronchodilator. Lung volumes: The total lung capacity is 5.58L, 80%. The functional residual capacity is 3.10 L, 97%. The residual volume is 1.89L, 78%. The RV/TLC is 34%. Airway resistance is increased. Diffusion: DLCO is 27, 89%. The DLCO/VA is 4.99, 129%. Flow volume loop: The flow volume loop normal. IMPRESSION: This study shows a mild obstructive ventilatory impairment which is more pronounced in the small airways, no significant response to bronchodilator, normal lung volumes, and normal diffusion. Lack of response to bronchodilator should not preclude use if clinically indicated. No prior studies to compare. Olya Dubois MD
== END 2025-01-28 09:36 | disposition home or self-care (01) ==
LOC: CHSCARD 09:38
PROVIDERS: PCP Nurse Practitioner Family; Visit Provider Physician Assistant
DX: J44.9 Chronic obstructive pulmonary disease, unspecified (principal); I48.0 Paroxysmal atrial fibrillation; R00.1 Bradycardia, unspecified; I44.0 Atrioventricular block, first degree
CPT/HCPCS: 71046; 93005; 94060; 94618; 94726; 94729

== ENCOUNTER 2025-02-03 09:41 | Outpatient (CLI) | payer MEDICARE, MEDICAID, SELFPAY ==
--- NOTE | 2025-02-03 10:20 | NEURO_ITS ---
Impression: # History of neuropathy affecting lower extremities more than upper extremities of unclear etiology # Superimposed left median Neuropathy with left APB neurogenic changes, could be compatible with left Carpal Tunnel Syndrome. # Bilateral Ulnar Neuropathy around the elbows, left more localizing across the elbow # Needle/ EMG exam neurogenic as outlined. Nerve Conduction Studies ?Stim Site NR Peak (ms) P-T Amp (?V) Site1 Site2 Delta-P (ms) Dist (cm) Mata (m/s) Left Median Anti Sensory (2-3nd Digit)??? NO RESPONSE Wrist NR Wrist 2-3nd Digit 14.0 Wrist NR Wrist 2-3nd Digit 14.0 Right Median Anti Sensory (2-3nd Digit)??? NO RESPONSE Wrist NR Wrist 2-3nd Digit 14.0 Wrist ? 4.7 11.4 Wrist 2-3nd Digit 14.0 Left Radial Anti Sensory (Base 1st Digit) Wrist ? 2.2 17.1 Wrist Base 1st Digit 2.2 0.0 Right Radial Anti Sensory (Base 1st Digit) Wrist ? 2.3 20.6 Wrist Base 1st Digit 2.3 0.0 Left Ulnar Anti Sensory (5th Digit) Wrist ? 2.9 11.2 Wrist 5th Digit 2.9 14.0 48 Right Ulnar Anti Sensory (5th Digit) Wrist ? 2.8 21.3 Wrist 5th Digit 2.8 14.0 50 ?Stim Site NR Onset (ms) O-P Amp (mV) Site1 Site2 Delta-0 (ms) Dist (cm) Mata (m/s) Left Median Motor (Abd Poll Brev)??? DISPERSED RESPONSE Wrist NR Elbow Wrist 32.0 Elbow ? 14.5 0.0 Right Median Motor (Abd Poll Brev) Wrist ? 3.3 0.4 Elbow Wrist 7.5 28.0 37 Elbow ? 10.8 0.7 Left Ulnar Motor (Abd Dig Minimi) Wrist ? 3.7 3.7 A Elbow Wrist 7.8 32.0 41 A Elbow ? 11.5 8.0 B Elbow Wrist 4.3 24.0 56 B Elbow ? 8.0 1.7 Right Ulnar Motor (Abd Dig Minimi) Wrist ? 2.5 6.4 A Elbow Wrist 6.7 32.0 48 A Elbow ? 9.2 5.7 B Elbow Wrist 5.2 24.0 46 B Elbow ? 7.7 2.5 F Wave Studies ?NR F-Lat (ms) L-R F-Lat (ms) Left Median (Mrkrs) (Abd Poll Brev)??? DISPERSED RESPONSE NR Right Median (Mrkrs) (Abd Poll Brev)??? DISPERSED RESPONSE NR Left Ulnar (Mrkrs) (Abd Dig Min) ? 37.50 5.43 Right Ulnar (Mrkrs) (Abd Dig Min) ? 32.07 5.43 Electromyography ?Side Muscle Nerve Root Ins Act Fibs Amp Dur Recrt Comment Right 1stDorInt Ulnar C8-T1 Nml Nml Nml >12ms Nml Left 1stDorInt Ulnar C8-T1 Nml Nml Nml >12ms Nml Right ABD Dig Min Ulnar C8-T1 Nml Nml Nml >12ms Nml Left ABD Dig Min Ulnar C8-T1 Nml Nml Nml >12ms Nml Left Abd Poll Brev Median C8-T1 Nml Nml Incr >12ms Nml Right Abd Poll Brev Median C8-T1 Nml Nml Incr >12ms +1 Right Abd Poll Long Radial (Post Int) C7-8 Nml Nml Nml Nml Nml Left Abd Poll Long Radial (Post Int) C7-8 Nml Nml Nml Nml Nml Left BrachioRad Radial C5-6 Nml Nml Nml Nml Nml Right BrachioRad Radial C5-6 Nml Nml Nml Nml Nml Right Ext Digitorum Radial (Post Int) C7-8 Nml Nml Nml Nml Nml Left Ext Digitorum Radial (Post Int) C7-8 Nml Nml Nml Nml Nml Left Ext Indicis Radial (Post Int) C7-8 Nml Nml Nml Nml Nml Right Ext Indicis Radial (Post Int) C7-8 Nml Nml Nml Nml Nml Left FlexPolLong Median (Ant Int) C7-8 Nml Nml Nml Nml Nml Right FlexPolLong Median (Ant Int) C7-8 Nml Nml Nml Nml Nml Right PronatorTeres Median C6-7 Nml Nml Nml Nml Nml Left PronatorTeres Median C6-7 Nml Nml Nml Nml Nml
--- OUTSIDE RECORDS SUMMARY | 2025-02-03 10:27 | XMS_ITS | Clinical Summary ---
Author Organization [facility] Address [address] [place] [address] Care Team Providers Care Nurses Assistant Name Role Phone Jose Naidu MD Primary Care Prov ider Source Comments [facility],non-owned Affiliates and Associated Physician Practices is amultiple site organization consisting of ambulatory clinics and hospital sitesin [place], [place], [place] and [place]. This disclosure is being madepursuant to the Care Everywhere program and may not contain all information available regarding this patient. Last updated 18.[facility] Allergies Active Allergy Reactions Criticality Noted Date Comments Penicillins 02/02/2011 Medications * Be aware that medications may not be up to date on this document. Alwaysverify current medications with the patient. mometasone (NASONEX) 50 MCG/ACT nasal sprayIndication s:Congestion,AR (allergic rhinitis) [place] 2 Sprays into each nostril once daily. [...] on file Legal Sex Male 11:47 AM DISTRICT LEADER Gender Identity Not on file Sexual Orientation Not on file Last Filed Vital Signs Vital Sign Reading Time Taken Comments Blood Pressure 121/81 06/03/2011 7:14 AM DISTRICT LEADER Pulse 55 06/03/2011 7:14 AM DISTRICT LEADER Temperature 36.4 C (97.6 F) 06/03/2011 7:14 AM DISTRICT LEADER Respiratory Rate 20 06/03/2011 7:14 AM DISTRICT LEADER Oxygen Saturation 96% 06/03/2011 7:14 AM DISTRICT LEADER Inhaled Oxygen Concentration - - Weight 117.9 kg (260 lb) 06/01/2011 11:54 AM DISTRICT LEADER Height 185.4 cm (6' 1) 06/01/2011 11:54 AM DISTRICT LEADER Body Mass Index 34.3 06/01/2011 11:54 AM DISTRICT LEADER Plan of Treatment Health Maintenance Due Date [...] PM CDT Narrative Resulting Agency Comment [facility] [address] [facility] [id number] Murphy Valadez MD LAB - BODY FLUID ORDERABLES Fi nal Result [facility] ACCOUNT BILL [address] [place] [address] * (ABNORMAL) LIPID PROFILE (02/02/2011 1:27 PM [...] PM CDT Narrative Resulting Agency Comment [facility] [address] [facility] [id number] Murphy Valadez MD LAB - CHEMISTRY ORDERABLES Nehemiah al Result [facility] ACCOUNT BILL [address] [place] [address] from Last 3 Months or Most Recently Relevant to Health Maintenance Insurance [facility] [place] MEDICARE DUAL ADV [place] Advance Directives * FULL RESUSCITATION (Latest Code Status on File) Date Activated Date Inactivated Comments 06/01/2011 5:59 PM 06/04/2011 12:05 AM Care Teams Nurses Assistant Relationship Specialty [place] [id number] [address] PCP - General 10/18/20
--- OUTSIDE RECORDS SUMMARY | 2025-02-03 10:27 | XMS_ITS | Clinical Summary ---
Author Organization [facility] Address [address] [place] [address] Care Team Providers Care Tank Worker Name Role Phone Unavailable Primary Care Provider Unavailabl e Encounters Date Type Department Care Team Description 12/09/2024 Chart Note [facility] Bariatrics and General Surgery at the [facility] [address] [address] [place] [address] Marjorie Brown MD from Last [...]
--- OUTSIDE RECORDS SUMMARY | 2025-02-03 10:28 | XMS_ITS | Clinical Summary ---
Author Organization [facility] , [facility] Address [address] [facility] [address] [place] [address] Phone Care Team Providers Care Print Journalist Name Role Phone Unavailable Primary Care Provider [...] the evening. 07/08/2020 Active ergocalciferol 1.25 MG (80700 UT) capsule Take 1 capsule by mouth [...] Comments Blood Pressure 112/68 06/06/2022 11:19 AM BIAS BINDING CUTTER Pulse 81 06/06/2022 11:19 AM BIAS BINDING CUTTER Temperature 36.1 C (97 F) 06/06/2022 11:19 AM BIAS BINDING CUTTER Respiratory Rate 22 06/06/2022 11:1 9 AM BIAS BINDING CUTTER Oxygen Saturation 95% 06/06/2022 11: 19 AM BIAS BINDING CUTTER Inhaled Oxygen Concentration - - Weight 182 kg (402 lb) 06/06/2022 11:19 AM BIAS BINDING CUTTER Patient in a wheelchair. Height 181.6 cm (5' 11.5) 06/06/2022 1 1:19 AM BIAS BINDING CUTTER Body Mass Index 55.29 06/06/2022 11:19 AM BIAS BINDING CUTTER Plan of Treatment Health Maintenance Due Date [...]
== END 2025-02-03 09:42 | disposition home or self-care (01) ==
PROVIDERS: PCP Nurse Practitioner Family; Visit Provider Psychiatry & Neurology Neurology
DX: G62.9 Polyneuropathy, unspecified (principal); M54.2 Cervicalgia; M47.816 Spondylosis without myelopathy or radiculopathy, lumbar region; I48.0 Paroxysmal atrial fibrillation; G56.03 Carpal tunnel syndrome, bilateral upper limbs; G56.23 Lesion of ulnar nerve, bilateral upper limbs
CPT/HCPCS: 95886; 95911

== ENCOUNTER 2025-02-24 10:13 | Outpatient (CLI) | payer MEDICARE, MEDICAID, SELFPAY ==
--- NOTE | 2025-02-24 10:26 | ECG_ITS ---
Test Date: 2025-02-24 10:35:20 Measurements Intervals [place] Rate: 67 P: 50 ID: 224 QRS: 49 QRSD: 105 T: 19 QT: 398 QTc: 421 Interpretive Statements SINUS RHYTHM WITH FIRST DEGREE AV BLOCK NONSPECIFIC ST-T WAVE ABNORMALITY- INFERIOR LEADS BORDERLINE ECG Compared to ECG 01/28/2025 09:50:19 HEART RATE HAS INCREASED Electronically Signed On 02-24-2025 11:41:30 CDT by Moose Zelaya D.O.
[2025-02-24 10:31] LABS: Hematocrit 34.7 % (40.0-54.0); Hemoglobin 11.6 g/dL (14.0-18.0); Mean Corpuscular HGB Conc 33.4 g/dL (32-36); Mean Corpuscular Hemoglobin 29.1 pg (27.0-31.0); Mean Corpuscular Volume 87.0 fL (78.0-102.0); Platelet Count Result 251 K/mm3 (150-420); Red Blood Count 3.99 M/mm3 (4.70-6.10); White Blood Count 8.9 K/mm3 (4.8-10.8)
[2025-02-24 10:52] LABS: Iron 83 ug/dL (49-181)
--- OUTSIDE RECORDS SUMMARY | 2025-02-24 11:45 | XMS_ITS | Clinical Summary ---
Author Organization [facility] Address [address] [address] Care Team Providers Care Executive Steward Name Role Phone Unavailable Primary Care Provider Unavailabl e Encounters Date Type Department Care Team Description 12/09/2024 Chart Note [facility] Bariatrics and General Surgery at the [facility] [address] [facility] [facility] [address] [address] [place] [address] Marjorie Brown MD from Last [...]
--- OUTSIDE RECORDS SUMMARY | 2025-02-24 11:45 | XMS_ITS | Clinical Summary ---
Author Organization [facility] Address [address] [facility] [address] [place] [address] Phone Care Team Providers Care Barista Name Role Phone Unavailable Primary Care Provider [...] the evening. 07/08/2020 Active ergocalciferol 1.25 MG (01893 UT) capsule Take 1 capsule by mouth [...] Comments Blood Pressure 112/68 06/06/2022 11:19 AM RAIL LOADER Pulse 81 06/06/2022 11:19 AM RAIL LOADER Temperature 36.1 C (97 F) 06/06/2022 11:19 AM RAIL LOADER Respiratory Rate 22 06/06/2022 11:1 9 AM RAIL LOADER Oxygen Saturation 95% 06/06/2022 11: 19 AM RAIL LOADER Inhaled Oxygen Concentration - - Weight 182 kg (402 lb) 06/06/2022 11:19 AM RAIL LOADER Patient in a wheelchair. Height 181.6 cm (5' 11.5) 06/06/2022 1 1:19 AM RAIL LOADER Body Mass Index 55.29 06/06/2022 11:19 AM RAIL LOADER Plan of Treatment Health Maintenance Due Date [...] 10.7 mg/dL Phosphorus, Serum 3.8 eGFR Non-Afr Sierra Leonean >60 Osmolality Calc 288.0 mosm/kg Hemoglobin A1C [...]
--- OUTSIDE RECORDS SUMMARY | 2025-02-24 11:45 | XMS_ITS | Clinical Summary ---
Author Organization [facility] Address [address] [place] [address] Care Team Providers Care Lehr Stripper Name Role Phone Jose Naidu MD Primary Care Prov ider Source Comments [facility],non-owned Affiliates and Associated Physician Practices is amultiple site organization consisting of ambulatory clinics and hospital sitesin [place], [place], [place] and [place]. This disclosure is being madepursuant to the Care Everywhere program and may not contain all information available regarding this patient. Last updated 18.[facility] Allergies Active Allergy Reactions Criticality Noted Date Comments Penicillins 02/02/2011 Medications * Be aware that medications may not be up to date on this document. Alwaysverify current medications with the patient. mometasone (NASONEX) 50 MCG/ACT nasal sprayIndication s:Congestion,AR (allergic rhinitis) [place] 2 Sprays into each nostril once daily. [...] on file Legal Sex Male 11:47 AM PERSONAL LINES AGENT Gender Identity Not on file Sexual Orientation Not on file Last Filed Vital Signs Vital Sign Reading Time Taken Comments Blood Pressure 121/81 06/03/2011 7:14 AM PERSONAL LINES AGENT Pulse 55 06/03/2011 7:14 AM PERSONAL LINES AGENT Temperature 36.4 C (97.6 F) 06/03/2011 7:14 AM PERSONAL LINES AGENT Respiratory Rate 20 06/03/2011 7:14 AM PERSONAL LINES AGENT Oxygen Saturation 96% 06/03/2011 7:14 AM PERSONAL LINES AGENT Inhaled Oxygen Concentration - - Weight 117.9 kg (260 lb) 06/01/2011 11:54 AM PERSONAL LINES AGENT Height 185.4 cm (6' 1) 06/01/2011 11:54 AM PERSONAL LINES AGENT Body Mass Index 34.3 06/01/2011 11:54 AM PERSONAL LINES AGENT Plan of Treatment Health Maintenance Due Date [...] PM CDT Narrative Resulting Agency Comment [facility] [place] [address] [facility] [id number] Murphy Valadez MD LAB - BODY FLUID ORDERABLES Fi nal Result [facility] ACCOUNT BILL [address] [place] [address] * (ABNORMAL) LIPID PROFILE (02/02/2011 1:27 PM [...] PM CDT Narrative Resulting Agency Comment [facility] [place] [address] [facility] [id number] Murphy Valadez MD LAB - CHEMISTRY ORDERABLES Nehemiah al Result [facility] ACCOUNT BILL [address] [place] [address] from Last 3 Months or Most Recently Relevant to Health Maintenance Insurance [facility] [place] MEDICARE DUAL ADV [place] Advance Directives * FULL RESUSCITATION (Latest Code Status on File) Date Activated Date Inactivated Comments 06/01/2011 5:59 PM 06/04/2011 12:05 AM Care Teams Lehr Stripper Relationship Specialty [place] [address] [address] PCP - General 10/18/20
[2025-02-24 12:33] LABS: Percent Iron Saturation 33 % (20-50)
[2025-02-24 16:26] LABS: Ferritin 155.00 ng/mL (11.1-264)
== END 2025-02-24 10:14 | disposition home or self-care (01) ==
LOC: CHSLAB 10:15
PROVIDERS: Psychiatry & Neurology Neurology; PCP Nurse Practitioner Family; Visit Provider Internal Medicine Cardiovascular Disease
DX: I48.0 Paroxysmal atrial fibrillation (principal); D50.9 Iron deficiency anemia, unspecified; G62.9 Polyneuropathy, unspecified; M54.9 Dorsalgia, unspecified; M54.2 Cervicalgia; M47.816 Spondylosis without myelopathy or radiculopathy, lumbar region; I44.0 Atrioventricular block, first degree; Z68.41 Body mass index [BMI] 40.0-44.9, adult
CPT/HCPCS: 36415; 82306; 82728; 83540; 83550; 84466; 85027; 93005

== ENCOUNTER 2025-03-06 10:18 | Emergency (ER) | payer MEDICARE, MEDICAID, SELFPAY ==
--- NOTE | ~2025-03-06 | XR_ITS ---
EXAMINATION: XR shoulder LT min 2V, 03/06/2025 10:41 CDT HISTORY: Fall last PM, Posterior Lt. shoulder pain COMPARISON: No comparisons available. Findings: No acute fracture or malalignment. No significant degenerative changes. Soft tissues unremarkable. Impression: No acute fracture or malalignment. Reviewed, dictated and finalized at location P. Impression: No acute fracture or malalignment.
[2025-03-06 10:18] VITALS: BP 134/76; PULSE 68; RESP 18; TEMP 36.4; O2SAT 98
--- NOTE | 2025-03-06 10:38 | ED.UPPEXIN ---
HPI - Extremity Injury (Upper) General Chief Complaint: Extremity Injury, Upper Stated Complaint: left shoulder pain Time Seen by Provider: 03/06/25 10:38 Source: patient Mode of arrival: ambulatory Limitations: no limitations History of Present Illness HPI narrative: 59 years old white male tripped on a rug at home last night landed on the left hand, jammed left shoulder. Denies other injuries. History of peripheral neuropathy, and AFib on anticoagulant medications. Related Data Home Medications ?Medication ?Instructions ?Recorded ?Confirmed ?Last Taken ?Type multivitamin 1 tablet PO DAILY 12/08/24 02/16/25 Unknown History tamsulosin 0.4 mg capsule 0.4 mg PO QHS 12/08/24 02/16/25 Unknown History Allergies Allergy/AdvReac Type Severity Reaction Status Date / Time Penicillins AdvReac unknown Verified 03/06/25 10:33 Review of Systems Review of Systems: All systems reviewed & are unremarkable except as noted in HPI and below PMFSH Past Medical History Medical History Bilateral carpal tunnel syndrome Colon polyp Neck pain Back pain PAF (paroxysmal atrial fibrillation) Right heart failure EF 65-70% Obstructive sleep apnea on CPAP Peripheral neuropathy Borderline diabetes Hemoglobin A1c in 2020 was 6.1%. Essential hypertension Anxiety and depression (~2017) Surgical History Surgical History History of right inguinal hernia repair History of arthroscopy of right knee History of appendectomy Family History Family History Father Acute myocardial infarction, Onset Age: 48 Mother Family history of malignant neoplasm, Onset Age: 61 Grandparent Family history of malignant neoplasm, Onset Age: 58 Carcinoma of colon, Onset Age: 71 Family history of renal failure, Onset Age: 65 Cerebrovascular accident, Onset Age: 68 Social History Social History Social History: The patient lives in his own home in [place], [place]. 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 He is a lifelong nonsmoker. He drinks alcohol socially and in moderation. He denies drug use. He designates his significant other, Martita Fernández, is his surrogate decision maker and he wishes to be a full code. 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 Gender identity (if verbalized by the patient): Male Sexual Orientation (if Verbalized by the Patient): Straight or Heterosexual Spiritual care concerns: No Agree to blood products: Yes Exam Narrative: General appearance: Well-developed, well-nourished Skin: Normal color Head: Normocephalic, nontraumatic Eyes: Clear conjunctiva ENT: Oropharynx normal, ears normal, nose normal Neck: Supple, nontender Chest and respiratory: Airway patent, no respiratory distress, no accessory muscle use Heart: Regular rate/rhythm Abdomen: Soft, nontender, no organomegaly, quiet bowel sounds Vascular: Normal peripheral pulses, normal capillary refill. Musculoskeletal: Left shoulder exam showed diffuse tenderness, limited range of motion, patient is able to abduct left shoulder up to 60 degree. No deformity, no bruises, no swelling. Neurologic: Alert and oriented ?3, ARTILLERY OFFICER is normal as tested, no gross motor deficit Course Vital Signs Vital signs: Vital Signs Temperature 36.4 C 03/06/25 10:18 Pulse Rate 68 03/06/25 10:18 Respiratory Rate 18 03/06/25 10:18 Blood Pressure 134/76 03/06/25 10:18 Pulse Oximetry 98 03/06/25 10:18 Oxygen Delivery Room Air 03/06/25 10:18 Temperature 36.4 C 03/06/25 10:18 Pulse Rate 68 03/06/25 10:18 Respiratory Rate 18 03/06/25 10:18 Blood Pressure 134/76 03/06/25 10:18 Pulse Oximetry 98 03/06/25 10:18 Oxygen Delivery Room Air 03/06/25 10:18 MDM - Extremity Injury (Upper) Differential Diagnosis Differential diagnosis: Likely fracture of humerus and other (Rotator cuff injury) Imaging Data My impression: Left shoulder x-ray showed no acute osseous abnormality Critical Care Time Critical Care Time Critical Care Time: No Discharge Plan Discharge Clinical Impression: Acute pain of left shoulder Patient Disposition: Home Condition: Stable Instructions: Shoulder Sprain (ED) Additional Instructions: Return if symptoms are worsening , call your family physician for appointment, take Tylenol as as needed for aches and pain, continue home medications. Patient Language: Thai Prescriptions: New diclofenac sodium 75 mg tablet,delayed release (DR/EC) 75 mg PO BID PRN (Reason: pain) Qty: 10 0RF omeprazole 20 mg capsule,delayed release(DR/EC) 20 mg PO DAILY Qty: 10 0RF cyclobenzaprine 7.5 mg tablet 7.5 mg PO TID Qty: 20 0RF No Action duloxetine 30 mg capsule,delayed release(DR/EC) 30 mg PO DAILY Qty: 60 7RF Rx Instructions: start with 1 capsule daily for 1 week in the morning and then 2 capsule daily to continue monitor heart rate and blood pressure daily for 1st 2 weeks albuterol sulfate 90 mcg/actuation HFA aerosol inhaler 1 - 2 puff inhalation Q4-6H PRN (Reason: shortness of breath or wheezing) Qty: 8.5 2RF tamsulosin 0.4 mg capsule 0.4 mg PO QHS multivitamin Tablet 1 tablet PO DAILY furosemide 40 mg tablet See Rx Instructions .ROUTE .COMPLEX Qty: 90 2RF Dose Instruction: TAKE 1 TABLET BY MOUTH EVERY MORNING Rx Instructions: TAKE 1 TABLET BY MOUTH EVERY MORNING Xarelto 20 mg tablet See Rx Instructions .ROUTE .COMPLEX Qty: 30 5RF Dose Instruction: 20 MG ORALLY DAILY MUST ADMINISTER WITH EVENING MEAL Rx Instructions: 20 MG ORALLY DAILY MUST ADMINISTER WITH EVENING MEAL rosuvastatin 40 mg tablet See Rx Instructions .ROUTE .COMPLEX Qty: 90 1RF Dose Instruction: TAKE 1 TABLET BY MOUTH EVERY DAY Rx Instructions: TAKE 1 TABLET BY MOUTH EVERY DAY azelastine 137 mcg (0.1 %) spray,non-aerosol See Rx Instructions .ROUTE .COMPLEX Qty: 90 1RF Dose Instruction: 2 SPRAY INTRANASALLY TWICE A DAY Rx Instructions: 2 SPRAY INTRANASALLY TWICE A DAY lisinopril 40 mg tablet See Rx Instructions .ROUTE .COMPLEX Qty: 90 2RF Dose Instruction: TAKE 1 TABLET BY MOUTH EVERY DAY Rx Instructions: TAKE 1 TABLET BY MOUTH EVERY DAY spironolactone 25 mg tablet See Rx Instructions .ROUTE .COMPLEX Qty: 90 2RF Dose Instruction: TAKE 1 TABLET BY MOUTH EVERY DAY Rx Instructions: TAKE 1 TABLET BY MOUTH EVERY DAY fluticasone propionate 50 mcg/actuation spray,suspension 2 spray intranasal BID Qty: 48 3RF Rx Instructions: administer into each nostril, aim back/up/out diltiazem HCl [Tiazac] 120 mg capsule,extended release 24 hr 120 mg PO DAILY Qty: 30 5RF nitroglycerin 0.4 mg tablet, sublingual See Rx Instructions .ROUTE .COMPLEX Qty: 25 2RF Dose Instruction: 0.4 MG SUBLINGUALLY EVERY 5 MINUTES NEEDED FOR CHEST PAIN Rx Instructions: 0.4 MG SUBLINGUALLY EVERY 5 MINUTES NEEDED FOR CHEST PAIN ammonium lactate 12 % cream See Rx Instructions .ROUTE .COMPLEX Qty: 280 0RF Dose Instruction: APPLY TOPICALLY TWICE A DAY Rx Instructions: APPLY TOPICALLY TWICE A DAY dofetilide 125 mcg capsule 125 mcg PO BID Qty: 60 5RF ferrous sulfate 325 mg (65 mg iron) tablet 325 mg PO DAILY Qty: 90 0RF Follow-up/Referrals: Wilmer Aguilar APRN [Primary Care Provider, Family Practice]
--- OUTSIDE RECORDS SUMMARY | 2025-03-06 10:45 | XMS_ITS | Clinical Summary ---
Author Organization [facility] , [facility] Address [address] [place] [address] Phone Care Team Providers Care Equities Trader Name Role Phone Unavailable Primary Care Provider [...] the evening. 07/08/2020 Active ergocalciferol 1.25 MG (25603 UT) capsule Take 1 capsule by mouth [...] Comments Blood Pressure 112/68 06/06/2022 11:19 AM LEGAL BILLING COORDINATOR Pulse 81 06/06/2022 11:19 AM LEGAL BILLING COORDINATOR Temperature 36.1 C (97 F) 06/06/2022 11:19 AM LEGAL BILLING COORDINATOR Respiratory Rate 22 06/06/2022 11:1 9 AM LEGAL BILLING COORDINATOR Oxygen Saturation 95% 06/06/2022 11: 19 AM LEGAL BILLING COORDINATOR Inhaled Oxygen Concentration - - Weight 182 kg (402 lb) 06/06/2022 11:19 AM LEGAL BILLING COORDINATOR Patient in a wheelchair. Height 181.6 cm (5' 11.5) 06/06/2022 1 1:19 AM LEGAL BILLING COORDINATOR Body Mass Index 55.29 06/06/2022 11:19 AM LEGAL BILLING COORDINATOR Plan of Treatment Health Maintenance Due Date [...] 10.7 mg/dL Phosphorus, Serum 3.8 eGFR Non-Afr Kenyan >60 Osmolality Calc 288.0 mosm/kg Hemoglobin A1C [...]
--- OUTSIDE RECORDS SUMMARY | 2025-03-06 10:45 | XMS_ITS | Clinical Summary ---
Author Organization [facility] Address [address] [place] [address] Care Team Providers Care Paper Rewinder Operator Name Role Phone Jose Naidu MD Primary Care Prov ider Source Comments [facility],non-owned Affiliates and Associated Physician Practices is amultiple site organization consisting of ambulatory clinics and hospital sitesin [place], [place], [place] and [place]. This disclosure is being madepursuant to the Care Everywhere program and may not contain all information available regarding this patient. Last updated 18.[facility] Allergies Active Allergy Reactions Criticality Noted Date Comments Penicillins 02/02/2011 Medications * Be aware that medications may not be up to date on this document. Alwaysverify current medications with the patient. mometasone (NASONEX) 50 MCG/ACT nasal sprayIndication s:Congestion,AR (allergic rhinitis) [place] 2 Sprays into each nostril once daily. [...] on file Legal Sex Male 11:47 AM BRAND SALES CONSULTANT Gender Identity Not on file Sexual Orientation Not on file Last Filed Vital Signs Vital Sign Reading Time Taken Comments Blood Pressure 121/81 06/03/2011 7:14 AM BRAND SALES CONSULTANT Pulse 55 06/03/2011 7:14 AM BRAND SALES CONSULTANT Temperature 36.4 C (97.6 F) 06/03/2011 7:14 AM BRAND SALES CONSULTANT Respiratory Rate 20 06/03/2011 7:14 AM BRAND SALES CONSULTANT Oxygen Saturation 96% 06/03/2011 7:14 AM BRAND SALES CONSULTANT Inhaled Oxygen Concentration - - Weight 117.9 kg (260 lb) 06/01/2011 11:54 AM BRAND SALES CONSULTANT Height 185.4 cm (6' 1) 06/01/2011 11:54 AM BRAND SALES CONSULTANT Body Mass Index 34.3 06/01/2011 11:54 AM BRAND SALES CONSULTANT Plan of Treatment Health Maintenance Due Date [...] PM CDT Narrative Resulting Agency Comment [facility] [address] [id number] Murphy Valadez MD LAB - BODY FLUID ORDERABLES Fi nal Result [facility] ACCOUNT BILL [address] [place] [address] * (ABNORMAL) LIPID PROFILE (02/02/2011 1:27 PM [...] PM CDT Narrative Resulting Agency Comment [facility] [address] [id number] Murphy Valadez MD LAB - CHEMISTRY ORDERABLES Nehemiah al Result [facility] ACCOUNT BILL [address] [place] [address] from Last 3 Months or Most Recently Relevant to Health Maintenance Insurance [facility] [place] MEDICARE DUAL ADV [place] Advance Directives * FULL RESUSCITATION (Latest Code Status on File) Date Activated Date Inactivated Comments 06/01/2011 5:59 PM 06/04/2011 12:05 AM Care Teams Paper Rewinder Operator Relationship Specialty [place] [id number] [address] PCP - General 10/18/20
--- OUTSIDE RECORDS SUMMARY | 2025-03-06 10:45 | XMS_ITS | Clinical Summary ---
Author Organization [facility] Address [address] [place] [address] Care Team Providers Care Centrex Radio Operator Name Role Phone Unavailable Primary Care Provider Unavailabl e Encounters Date Type Department Care Team Description 12/09/2024 Chart Note [facility] Bariatrics and General Surgery at the [facility] [address] [place] [address] Marjorie Brown MD from Last [...]
--- OUTSIDE RECORDS SUMMARY | 2025-03-06 10:45 | XMS_ITS | Clinical Summary ---
Author Organization [facility] Address [address] [place] [address] Care Team Providers Care Cell Geneticist Name Role Phone Jeniffer Veras NP Primary Care Provider [phone] Allergies Active Allergy Reactions Criticality Noted Date [...] 2 - PCV) 12/16/2020 12/17/2019 COVID-19 Vaccine (2024- season) 2025 03/16/2022, 09/09/2020, 08/20/2020, Additional history exists Influenza Adult (#1) 2025 03/16/2022, 04/25/2021, 02/14/2020, Additional history exists DTaP, Tdap and Td Vaccines (4 - Td or Tdap) 10/12/2030 10/12/2020, 12/07/2019, 07/05/2016, Additional history exists Zoster Vaccines Completed 05/11/2020, 02/13/2020 Hepatitis A Vaccines Aged Out No long er eligible based on patient's age to complete this topic Meningococcal B Vaccine Aged Out No l onger eligible based on patient's age to complete this topic Meningococcal Vaccine Aged Out No nakul robinson eligible based on patient's age to complete this topic RSV Immunizations Under 20 Months Aged Out No longer eligible based on patient's age to complete this topic Insurance [place] MED[place] Advance Directives * Full Code (Latest Code Status on File) Date Activated Date Inactivated Comments 11/24/2021 2:21 PM Care Teams Cell Geneticist Relationship Specialty Start Date End Date Jeniffer Veras NP [facility] [place] [phone] PCP - General NURSE PRACTITIONER 09/01/21
[2025-03-06] MEDS: ACETAMINOPHEN 325 MG TABLET 650 MG PO (10:53)
[2025-03-06] MEDS: IBUPROFEN 600 MG TABLET PO (10:53)
--- OUTSIDE RECORDS SUMMARY | 2025-03-06 11:20 | XMS_ITS | Clinical Summary ---
Author Organization [facility] Address [address] [place] [address] Care Team Providers Care Medical Laboratory Technologist Name Role Phone Jeniffer Veras NP Primary Care Provider [phone] Allergies Active Allergy Reactions Criticality Noted Date [...] Inactivated Comments 11/24/2021 2:21 PM Care Teams Medical Laboratory Technologist Relationship Specialty Start Date End Date Jeniffer Veras NP [facility] [place] [phone] PCP - General NURSE PRACTITIONER 09/01/21
--- OUTSIDE RECORDS SUMMARY | 2025-03-06 11:20 | XMS_ITS | Clinical Summary ---
Author Organization [facility] Address [address] [place] [address] Care Team Providers Care Fire Management Officer Name Role Phone Jose Naidu MD Primary Care Prov ider Source Comments [facility],non-owned Affiliates and Associated Physician Practices is amultiple site organization consisting of ambulatory clinics and hospital sitesin [place], [place], [place] and [place]. This disclosure is being madepursuant to the Care Everywhere program and may not contain all information available regarding this patient. Last updated 18.[facility] Allergies Active Allergy Reactions Criticality Noted Date Comments Penicillins 02/02/2011 Medications * Be aware that medications may not be up to date on this document. Alwaysverify current medications with the patient. mometasone (NASONEX) 50 MCG/ACT nasal sprayIndication s:Congestion,AR (allergic rhinitis) [place] 2 Sprays into each nostril once daily. [...] on file Legal Sex Male 11:47 AM PSYCH SOCIAL WORKER Gender Identity Not on file Sexual Orientation Not on file Last Filed Vital Signs Vital Sign Reading Time Taken Comments Blood Pressure 121/81 06/03/2011 7:14 AM PSYCH SOCIAL WORKER Pulse 55 06/03/2011 7:14 AM PSYCH SOCIAL WORKER Temperature 36.4 C (97.6 F) 06/03/2011 7:14 AM PSYCH SOCIAL WORKER Respiratory Rate 20 06/03/2011 7:14 AM PSYCH SOCIAL WORKER Oxygen Saturation 96% 06/03/2011 7:14 AM PSYCH SOCIAL WORKER Inhaled Oxygen Concentration - - Weight 117.9 kg (260 lb) 06/01/2011 11:54 AM PSYCH SOCIAL WORKER Height 185.4 cm (6' 1) 06/01/2011 11:54 AM PSYCH SOCIAL WORKER Body Mass Index 34.3 06/01/2011 11:54 AM PSYCH SOCIAL WORKER Plan of Treatment Health Maintenance Due [...] PM CDT Narrative Resulting Agency Comment [facility] [address] [id number] Murphy Valadez MD LAB - BODY FLUID ORDERABLES Fi nal Result [facility] ACCOUNT BILL [address] [place] [address] * (ABNORMAL) LIPID PROFILE (02/02/2011 1:27 PM [...] PM CDT Narrative Resulting Agency Comment [facility] [address] [id number] Murphy Valadez MD LAB - CHEMISTRY ORDERABLES Nehemiah al Result [facility] ACCOUNT BILL [address] [place] [address] from Last 3 Months or Most Recently Relevant to Health Maintenance Insurance [facility] [place]OLINA MEDICARE DUAL ADV [place] Advance Directives * FULL RESUSCITATION (Latest Code Status on File) Date Activated Date Inactivated Comments 06/01/2011 5:59 PM 06/04/2011 12:05 AM Care Teams Fire Management Officer Relationship Specialty [place] [address] [address] PCP - General 10/18/20
--- OUTSIDE RECORDS SUMMARY | 2025-03-06 11:20 | XMS_ITS | Clinical Summary ---
Author Organization [facility] Address [address] [place] [address] Care Team Providers Care Shotblaster Name Role Phone Unavailable Primary Care Provider Unavailabl e Encounters Date Type Department Care Team Description 12/09/[address] [facility] Bariatrics and General Surgery at the [facility] [address] [place] [address] Marjorie Brown MD from Last [...]
--- OUTSIDE RECORDS SUMMARY | 2025-03-06 11:20 | XMS_ITS | Clinical Summary ---
Author Organization [facility] Address [address] [place] [address] Phone Care Team Providers Care Human Factors Specialist Name Role Phone Unavailable Primary Care Provider [...] the evening. 07/08/2020 Active ergocalciferol 1.25 MG (52436 UT) capsule Take 1 capsule by mouth [...] Comments Blood Pressure 112/68 06/06/2022 11:19 AM SLICING MACHINE TENDER Pulse 81 06/06/2022 11:19 AM SLICING MACHINE TENDER Temperature 36.1 C (97 F) 06/06/2022 11:19 AM SLICING MACHINE TENDER Respiratory Rate 22 06/06/2022 11:1 9 AM SLICING MACHINE TENDER Oxygen Saturation 95% 06/06/2022 11: 19 AM SLICING MACHINE TENDER Inhaled Oxygen Concentration - - Weight 182 kg (402 lb) 06/06/2022 11:19 AM SLICING MACHINE TENDER Patient in a wheelchair. Height 181.6 cm (5' 11.5) 06/06/2022 1 1:19 AM SLICING MACHINE TENDER Body Mass Index 55.29 06/06/2022 11:19 AM SLICING MACHINE TENDER Plan of Treatment Health Maintenance [...] 10.7 mg/dL Phosphorus, Serum 3.8 eGFR Non-Afr Bahraini >60 Osmolality Calc 288.0 mosm/kg Hemoglobin A1C [...]
== END 2025-03-06 11:03 | disposition home or self-care (01) ==
LOC: CHSED 11:00
PROVIDERS: Emergency Provider Emergency Medicine; PCP Nurse Practitioner Family
DX: M25.512 Pain in left shoulder (principal); I48.0 Paroxysmal atrial fibrillation; I10 Essential (primary) hypertension; Z79.01 Long term (current) use of anticoagulants; W01.0XXA Fall on same level from slipping, tripping and stumbling without subsequent striking against object, initial encounter
CPT/HCPCS: 73030; 99283; A9270

== ENCOUNTER 2025-04-02 14:03 | Outpatient (CLI) | payer MEDICARE, MEDICAID, SELFPAY ==
--- NOTE | ~2025-04-02 | MR_ITS ---
EXAMINATION: MR knee LT wo con DATE: 04/02/2025 14:49 INDICATION: Left knee instability TECHNIQUE: Magnetic resonance imaging (MRI) of the left knee was performed without intravenous contrast. Sequences included coronal PD-weighted FSE, coronal PD-weighted FS FSE, sagittal T2-weighted FSE, sagittal PD-weighted FS FSE and axial PD weighted fat saturated FSE. COMPARISON: None. FINDINGS: Medial compartment: Medial extrusion of the medial meniscal body which along with the posterior horn appears small consistent with meniscal tear and loss of meniscal tissue. Small tears of the remaining meniscus with increased signal extending to contact the superior articular surface posterior horn and the inferior articular surface at the posterior body of the meniscus. There is extensive full and near full- thickness cartilage loss along the anterior to central weightbearing medial femoral condyle and at the central, medial and posterior aspect of the medial tibial plateau. There is very early remodeling of the articular cortex of the medial tibial plateau with mild underlying subarticular edema-like signal change. Less severe partial thickness chondral ulceration and fissuring at the posterior aspect of the weightbearing medial femoral condyle. Lateral compartment: Lateral meniscus is normal. Mild partial-thickness chondral ulceration and fissuring without degenerative subchondral changes along the posterior aspect lateral tibial plateau. Mild partial-thickness cartilage loss with smooth chondral surface along the lateral aspect of the weightbearing lateral femoral condyle. Patellofemoral compartment: Deep chondral ulceration at the central aspect of the lateral patellar facet and apical ridge. Less severe partial thickness at the medial patellar facet. Trochlear cartilage appears relatively preserved. Ligaments and tendons: Anterior cruciate ligament is thickened with amorphous mild increased signal but which maintains normal angle relative to the most outlined and without discrete fluid signal intensity tear defect this be most consistent with mucoid degeneration. Thickening and prominent increased intrasubstance signal within the posterior cruciate ligament which could be consistent with at least partial tear. The medial collateral ligament and fibular collateral ligament complex are normal. Small enthesophytes at the patellar insertions of the otherwise unremarkable distal quadriceps and proximal patellar tendons. The visualized medial and lateral hamstring tendons as well as the iliotibial band are normal. Fluid: Moderate-sized left knee joint effusion with mild synovitis at the suprapatellar pouch. No loose osteochondral bodies identified. Osseous/other: No fracture or pathologic marrow replacing process. IMPRESSION: 1. There are small tears at the body and posterior horn of the medial meniscus which are both small which could be due to either prior partial meniscectomy, displacement of torn meniscal tissue or more chronic degeneration. 2. Tricompartmental osteoarthritis, severe with extensive high-grade chondromalacia and remodeling of the tibial plateau in the medial compartment and mild in the lateral and patellofemoral compartments. 3. At least partial tear of the posterior cruciate ligament and medial degeneration without discrete tear of the anterior cruciate ligament. Correlate with physical exams to assess for degree of residual functional integrity of both ligaments. 4. Moderate-sized left knee joint effusion. Reviewed, dictated and finalized at location A. UREUX PRINTER IMPRESSION: 1. There are small tears at the body and posterior horn of the medial meniscus which are both small which could be due to either prior partial meniscectomy, d isplacement of torn meniscal tissue or more chronic degeneration. 2. Tricompartmental osteoarthritis, severe with extensive high-grade chondromal acia and remodeling of the tibial plateau in the medial compartment and mild in the lateral and patellofemoral compartments. 3. At least partial tear of the posterior cruciate ligament and medial degenera tion without discrete tear of the anterior cruciate ligament. Correlate with ph ysical exams to assess for degree of residual functional integrity of both liga ments. 4. Moderate-sized left knee joint effusion.
--- OUTSIDE RECORDS SUMMARY | 2025-04-02 17:19 | XMS_ITS | Clinical Summary ---
Author Organization [facility] Address [address] [place] [address] Care Team Providers Care Senior Sql Database Developer Name Role Phone Jose Naidu MD Primary Care Prov ider Source Comments [facility],non-owned Affiliates and Associated Physician Practices is amultiple site organization consisting of ambulatory clinics and hospital sitesin [place], [place], [place] and [place]. This disclosure is being madepursuant to the Care Everywhere program and may not contain all information available regarding this patient. Last updated 18.[facility] Allergies Active Allergy Reactions Criticality Noted Date Comments Penicillins 02/02/2011 Medications * Be aware that medications may not be up to date on this document. Alwaysverify current medications with the patient. mometasone (NASONEX) 50 MCG/ACT nasal sprayIndication s:Congestion,AR (allergic rhinitis) [place] 2 Sprays into each nostril once daily. [...] on file Legal Sex Male 11:47 AM BAGGAGE SECURITY CHECKER Gender Identity Not on file Sexual Orientation Not on file Last Filed Vital Signs Vital Sign Reading Time Taken Comments Blood Pressure 121/81 06/03/2011 7:14 AM BAGGAGE SECURITY CHECKER Pulse 55 06/03/2011 7:14 AM BAGGAGE SECURITY CHECKER Temperature 36.4 C (97.6 F) 06/03/2011 7:14 AM BAGGAGE SECURITY CHECKER Respiratory Rate 20 06/03/2011 7:14 AM BAGGAGE SECURITY CHECKER Oxygen Saturation 96% 06/03/2011 7:14 AM BAGGAGE SECURITY CHECKER Inhaled Oxygen Concentration - - Weight 117.9 kg (260 lb) 06/01/2011 11:54 AM BAGGAGE SECURITY CHECKER Height 185.4 cm (6' 1) 06/01/2011 11:54 AM BAGGAGE SECURITY CHECKER Body Mass Index 34.3 06/01/2011 11:54 AM BAGGAGE SECURITY CHECKER Plan of Treatment Health Maintenance Due Date [...] CALENDAR YEAR 2024 COVID-19 VACCINE (1 - 2024-2 6 season) 2025 INFLUENZA VACCINE (#1) 2025 HIB [...] PM CDT Narrative Resulting Agency Comment [facility] [place] [address] [id number] Murphy Valadez MD LAB - BODY FLUID ORDERABLES Fi nal Result [facility] ACCOUNT BILL [address] [place] [address] * (ABNORMAL) LIPID PROFILE (02/02/2011 1:27 PM [...] PM CDT Narrative Resulting Agency Comment [facility] [place] [address] [id number] Murphy Valadez MD LAB - CHEMISTRY ORDERABLES Nehemiah al Result [facility] ACCOUNT BILL [address] [place] [address] from Last 3 Months or Most Recently Relevant to Health Maintenance Insurance [facility] [place] MEDICARE DUAL ADV [place] Advance Directives * FULL RESUSCITATION (Latest Code Status on File) Date Activated Date Inactivated Comments 06/01/2011 5:59 PM 06/04/2011 12:05 AM Care Teams Senior Sql Database Developer Relationship Specialty [place] [address] [address] PCP - General 10/18/20
--- OUTSIDE RECORDS SUMMARY | 2025-04-02 17:19 | XMS_ITS | Clinical Summary ---
Author Organization [facility] renan [facility] [place] Address [address] [place] [address] Care Team Providers Care Internet Merchant Name Role Phone Unavailable Primary Care Provider [...]
--- OUTSIDE RECORDS SUMMARY | 2025-04-02 17:19 | XMS_ITS | Data Portability ---
Author Organization [facility], Main Office Address [address] [place] [address] Assessment Encounter Date Assessment Date Assessment LastModified by Organization Details LastModified Time 09/27/2022 09/27/2022 WEA- 11/17/21 Cscope- Colonoscopy 09/2020- Nyazee- WNL- repeat 2030 PSA-08/02/21 Call office if worse, ER if life threatening illness RTC 3 months He voices understanding of plan and agrees Not available 09/27/2022 15:24:07 12/19/2022 12/19/2022 Spent [...] panel, arterial blood 2022 023 [email or web address] 25 [facility], [address] [place], [address], 3 12:02:11 HbA1c (hemoglobin A1c), blood [address] (Lab), [address] [place], [address], 3 14:42:58 microalbumi n/creatinin e, mass ratio, urine [address] (Lab), [address] [place], [address], 3 14:42:58 lipid panel, serum 2022 023 [facility] (Lab), [address] [place], [address], 3 19:15:11 TSH, serum or plasma 2022 023 [facility] (Lab), [address] [place], [address], 3 19:34:59 T4, free, serum 2022 023 [facility] (Lab), [address] [place], [address], 3 19:17:26 vitamin B12 + folate, serum or blood [address] (Lab), [address] [place], [address], 3 14:42:58 vitamin D, 25-hydroxy, total, serum 2022 023 [email or web address] [facility] (Lab), [address] [place], [address], 3 14:42:58 CMP, serum or plasma 2022 023 [facility] (Lab), [address] [place], [address], 3 19:15:08 CBC w/ auto diff 2022 023 [facility] (Lab), [address] [place], [address], 3 18:21:37 Referral neurologist referral - Lizzie Winter- Neurology [address] [place], [place] 2022 023 [email or web address] Not available 4 10:44:46 cardiologis t referral 2022 023 [email or web address] Moose Zelaya DO, [address] [facility] [address], [place], [address], 4 10:44:25 Procedures None recorded. Surgeries None recorded. Imaging None recorded. Medication Orders None recorded. Patient TargetsNo targets recorded. Patient Instructions Encounter Date Encounter Id Patient Instructions Last Modified By Organization Details Last Modified Time 01/31/2023 [id number] Due to the COVID-19 (Novel Coronavirus) pandemic, it is within this context (and with the understanding that this method of patient encounter is in the patient s best interest as well as the health and safety of other patients and the public) that t [facility] is being provided for this patient encounter rather than a thhl-xa-[id number] visit. 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 Referring Physician: Jeniffer Veras, Internal Medicine, Encounter Date: 09/27/2022 Neurologist Referral for Carmelo yneuropathy Lizzie Winter- [id number] [facility], [phone] Referring Physician: Jeniffer Veras, Internal Medicine, Encounter Date: 09/27/2022 Results Created Date Observation Date Name Description Value Unit Range Abnormal Flag Note LastModifiedBy Organization Detail LastModifiedTime 09/28/1909/27/2022 CBC/C OMPLE TE BLD COUNT W/DIF F white blood cells 8.5 x10'3 /uL 4.2-10 .8 Not Available [facility] (Lab) [address] [place], [address], 09/27/2022 18:21:37 09/28/19 23 09/27/2022 CBC/C OMPLE TE BLD COUNT W/DIF F red blood cells 3.88 x10'6 /uL 4.10-5 .80 low Not Available [facility] (Lab) [address] [place], [address], 09/27/2022 18:21:37 09/28/1909/27/2022 CBC/C OMPLE TE BLD COUNT W/DIF F hemoglobin 11.4 g/dL 13.2-1 7.0 low Not Available [facility] (Lab) [address] [place], [address], 09/27/2022 18:21:37 09/28/19 23 09/27/2022 CBC/C OMPLE TE BLD COUNT W/DIF F hematocrit 37.9 % 39.3-5 0.0 low Not Available [facility] (Lab) [address] [place], [address], 09/27/2022 18:21:37 09/28/19 23 09/27/2022 CBC/C OMPLE TE BLD COUNT W/DIF F mean red cell volume 97.7 fL 80.0-9 7.0 high Not Available [facility] (Lab) [address] [place], [address], 09/27/2022 18:21:37 09/28/19 23 09/27/2022 CBC/C OMPLE TE BLD COUNT W/DIF F mean red cell hemoglobin 29.4 pg 27.0-3 3.0 Not Available [facility] (Lab) [address] [place], [address], 09/27/2022 18:21:37 09/28/19 23 09/27/2022 CBC/C OMPLE TE BLD COUNT W/DIF F mean RBC HGB concentratio n 30.1 g/dL 31.0-3 6.0 low Not Available [facility] (Lab) [address] [place], [address], 09/27/2022 18:21:37 09/28/19 23 09/27/2022 CBC/C OMPLE TE BLD COUNT W/DIF F red cell distribution width 14.7 % 11.8-1 5.5 Not Available [facility] (Lab) [address] [place], [address], 09/27/2022 18:21:37 09/28/19 23 09/27/2022 CBC/C OMPLE TE BLD COUNT W/DIF F platelets 197 x10'3 /uL 150-40 0 Not Available [facility] (Lab) [address] [place], [address], 09/27/2022 18:21:37 09/28/19 23 09/27/2022 CBC/C OMPLE TE BLD COUNT W/DIF F mean platelet volume 10.6 fL 9.0-12 .4 Not Available [facility] (Lab) [address] [place], [address], 09/27/2022 18:21:37 09/28/19 23 09/27/2022 CBC/C OMPLE TE BLD COUNT W/DIF F neutrophils 80.0 % 39.0-7 2.0 high Not Available [facility] (Lab) [address] [place], [address], 09/27/2022 18:21:37 09/28/19 23 09/27/2022 CBC/C OMPLE TE BLD COUNT W/DIF F lymphocytes 9.3 % 16.0-4 7.0 low Not Available [facility] (Lab) [address] [place], [address], 09/27/2022 18:21:37 09/28/19 23 09/27/2022 CBC/C OMPLE TE BLD COUNT W/DIF F monocytes 5.3 % 5.0-12 .0 Not Available [facility] (Lab) [address] [place], [address], 09/27/2022 18:21:37 09/28/19 23 09/27/2022 CBC/C OMPLE TE BLD COUNT W/DIF F eosinophils 4.4 % 1.0-7. 0 Not Available [facility] (Lab) [address] [place], [address], 09/27/2022 18:21:37 09/28/19 23 09/27/2022 CBC/C OMPLE TE BLD COUNT W/DIF F basophils 0.4 % 0.0-2. 0 Not Available [facility] (Lab) [address] [place], [address], 09/27/2022 18:21:37 09/28/19 23 09/27/2022 CBC/C OMPLE TE BLD COUNT W/DIF F immature granulocytes 0.6 % 0.00-0 .50 high Not Available [facility] (Lab) [address] [place], [address], 09/27/2022 18:21:37 09/28/19 23 09/27/2022 CBC/C OMPLE TE BLD COUNT W/DIF F neutrophils, absolute count 6.77 x10'3 /uL 1.5-8. 0 Not Available [facility] (Lab) [address] [place], [address], 09/27/2022 18:21:37 09/28/19 23 09/27/2022 CBC/C OMPLE TE BLD COUNT W/DIF F lymphocytes, absolute count 0.79 x10'3 /uL 1.07-3 .43 low Not Available [facility] (Lab) [address] [place], [address], 09/27/2022 18:21:37 09/28/19 23 09/27/2022 CBC/C OMPLE TE BLD COUNT W/DIF F monocytes, absolute count 0.45 x10'3 /uL 0.29-0 .99 Not Available [facility] (Lab) [address] [place], [address], 09/27/2022 18:21:37 09/28/19 23 09/27/2022 CBC/C OMPLE TE BLD COUNT W/DIF F eosinophils, absolute count 0.37 x10'3 /uL 0.02-0 .53 Not Available [facility] (Lab) [address] [place], [address], 09/27/2022 18:21:37 09/28/19 23 09/27/2022 CBC/C OMPLE TE BLD COUNT W/DIF F basophils, absolute count 0.03 x10'3 /uL 0.01-0 .08 Not Available [facility] (Lab) [address] [place], [address], 09/27/2022 18:21:37 09/28/19 23 09/27/2022 CBC/C OMPLE TE BLD COUNT W/DIF F immature granulocytes ,absolute 0.05 x10'3 /uL 0.00-0 .05 Not Available [facility] (Lab) [address] [place], [address], 09/27/2022 18:21:37 09/28/19 23 09/27/2022 CBC/C OMPLE TE BLD COUNT W/DIF F nucleated red blood cells 0.0 % -0 Not Available [facility] (Lab) [address] [place], [address], 09/27/2022 18:21:37 09/28/19 23 09/27/2022 CBC/C OMPLE TE BLD COUNT W/DIF F NRBC# 0.00 x10'3 /uL Not Available [facility] (Lab) [address] [place], [address], 09/27/2022 18:21:37 09/28/19 23 09/27/2022 COMPR EHENS ESTEFANIA METAB OLIC PANEL sodium 134 mmol/ L 137-14 5 low Not Available [facility] (Lab) [address] [place], [address], 09/27/2022 19:15:08 09/28/19 23 09/27/2022 COMPR EHENS ESTEFANIA METAB OLIC PANEL potassium 4.3 mmol/ L 3.5-5. 1 Not Available [facility] (Lab) [address] [place], [address], 09/27/2022 19:15:08 09/28/19 23 09/27/2022 COMPR EHENS ESTEFANIA METAB OLIC PANEL chloride 93 mmol/ L 98-107 low Not Available [facility] (Lab) [address] [place], [address], 09/27/2022 19:15:08 09/28/19 23 09/27/2022 COMPR EHENS ESTEFANIA METAB OLIC PANEL carbon dioxide 36 mmol/ L 22-30 high Not Available [facility] (Lab) [address] [place], [address], 09/27/2022 19:15:08 09/28/19 23 09/27/2022 COMPR EHENS ESTEFANIA METAB OLIC PANEL anion gap 9.3 mmol/ L 14-22 low Not Available [facility] (Lab) [address] [place], [address], 09/27/2022 19:15:08 09/28/19 23 09/27/2022 COMPR EHENS ESTEFANIA METAB OLIC PANEL glucose 118 mg/dL 70-99 high Not Available [facility] (Lab) [address] [place], [address], 09/27/2022 19:15:08 09/28/19 23 09/27/2022 COMPR EHENS ESTEFANIA METAB OLIC PANEL BUN 13 mg/dL 8-19 Not Available [facility] (Lab) [address] [place], [address], 09/27/2022 19:15:08 09/28/19 23 09/27/2022 COMPR EHENS ESTEFANIA METAB OLIC PANEL creatinine 0.69 mg/dL 0.66-1 .25 Not Available [facility] (Lab) [address] [place], [address], 09/27/2022 19:15:08 09/28/19 23 09/27/2022 COMPR EHENS ESTEFANIA METAB OLIC PANEL GFR >60 Refer ence Range : [place] ge GFR Healt hy Adult : >60 [...] or ethni c subgr oups, such as Hischeko nics. Outsi de the valid ated maribel [...] calcu lator is avail able on the [facility] websi te: https :[email or web address] silverio.tash calvillo.dahiana rg/pr ofess ional s/kdo qi/gf r_cal culat or Not Available [facility] (Lab) [address] [place], [address], 09/27/2022 19:15:08 09/28/19 23 09/27/2022 COMPR EHENS ESTEFANIA METAB OLIC PANEL alkaline phosphatase 77 U/L 38-126 Not Available [facility] (Lab) [address] [place], [address], 09/27/2022 19:15:08 09/28/19 23 09/27/2022 COMPR EHENS ESTEFANIA METAB OLIC PANEL alanine aminotransfe rase 20 U/L 0-50 Not Available [facility] (Lab) [address] [place], [address], 09/27/2022 19:15:08 09/28/19 23 09/27/2022 COMPR EHENS ESTEFANIA METAB OLIC PANEL aspartate aminotransfe rase 42 U/L 15-46 Not Available [facility] (Lab) [address] [place], [address], 09/27/2022 19:15:08 09/28/19 23 09/27/2022 COMPR EHENS ESTEFANIA METAB OLIC PANEL bilirubin, total 0.40 mg/dL 0.20-1 .30 Not Available [facility] (Lab) [address] [place], [address], 09/27/2022 19:15:08 09/28/19 23 09/27/2022 COMPR EHENS ESTEFANIA METAB OLIC PANEL calcium 8.5 mg/dL 8.4-10 .2 Not Available [facility] (Lab) [address] [place], [address], 09/27/2022 19:15:08 09/28/19 23 09/27/2022 COMPR EHENS ESTEFANIA METAB OLIC PANEL total protein 7.5 g/dL 6.3-8. 2 Not Available [facility] (Lab) [address] [place], [address], 09/27/2022 19:15:08 09/28/19 23 09/27/2022 COMPR EHENS ESTEFANIA METAB OLIC PANEL albumin 3.7 g/dL 3.4-5. 0 Not Available [facility] (Lab) [address] [place], [address], 09/27/2022 19:15:08 09/28/19 23 09/27/2022 COMPR EHENS ESTEFANIA METAB OLIC PANEL globulin 3.8 g/dL 2.6-4. 2 Not Available [facility] (Lab) [address] [place], [address], 09/27/2022 19:15:08 09/28/19 23 09/27/2022 COMPR EHENS ESTEFANIA METAB OLIC PANEL A/G ratio 1.0 ratio 1.0-2. 0 Not Available [facility] (Lab) [address] [place], [address], 09/27/2022 19:15:08 09/28/19 23 09/27/2022 LIPID PANEL cholesterol 145 mg/dL 140-19 9 NIH SANDI NSUS RECOM MENDA TION FOR DAYANARA STERO L: ADULT CHILD LOW RISK: <200 <170 BORDE RLINE : <200- 239 ----- HIGH RISK: >240 >200 Not Available [facility] (Lab) [address] [place], [address], 09/27/2022 19:15:11 09/28/19 23 09/27/2022 LIPID PANEL triglyceride s 113 mg/dL 0-150 NIH SANDI NSUS REPOR T RECOM MENDA TION FOR TRIGL YCERI JIMI: ADULT CHILD LOW RISK: <150 ----- BODER LINE: 150-1 99 ----- HIGH RISK: >200 ----- Not Available [facility] (Lab) [address] [place], [address], 09/27/2022 19:15:11 09/28/1909/27/2022 LIPID PANEL HDL cholesterol 65 mg/dL 40- Not Available [facility] (Lab) [address] [place], [address], 09/27/2022 19:15:11 09/28/19 23 09/27/2022 LIPID PANEL [...] WILL NOT BE REPOR PADDY. Not Available [facility] (Lab) [address] [place], [address], 09/27/2022 19:15:11 09/28/19 23 09/27/2022 T4 FREE free T4 1.06 NG/dL 0.78-2 .19 Not Available [facility] (Lab) [address] [place], [address], 09/27/2022 19:17:26 09/28/19 23 09/27/2022 TSH thyroid-stim ulating hormone 3.250 uIU/m L 0.465- 4.680 Not Available [facility] (Lab) [address] [place], [address], 09/27/2022 19:34:59 09/28/19 23 09/27/2022 MICRO ALBUM N RNDM W/CRE AT RATIO ur creat 200.90 mg/dL REFER ENCE RANGE NOT ESTAB LISHE D FOR RANDO M URINE CREAT ININE Not Available [facility] (Lab) [address] [place], [address], 09/27/2022 20:10:17 09/28/19 23 09/27/2022 MICRO ALBUM N RNDM W/CRE AT RATIO microalbumin , urine 144.0 mg/L 0.0-16 .6 high Not Available [facility] (Lab) [address] [place], [address], 09/27/2022 20:10:17 09/28/19 23 09/27/2022 MICRO ALBUM [...] DIABE BRENDA CARE, VOL. 26: S94-S 96, MARY RIBERA 2002 Not Available [facility] (Lab) [address] [place], [address], 09/27/2022 20:10:17 09/28/19 23 09/27/2022 VITAM IN D 25-HY DROXY vd25oh 27.8 NG/mL 30-100 low Vitam in D Statu s: Defic ient: <20 ng/mL Insuf ficie nt: 20-29 ng/mL Suffi cient : 30-10 0 ng/mL Not Available [facility] (Lab) [address] [place], [address], 09/27/2022 20:11:01 09/28/19 23 09/27/2022 HEMOG LOBIN A1C HA1C 5.9 % 4.0-6. 0 Diabe brenda Scree ester Crite clyde: <5.7% Consi stent with absen ce of diabe brenda 5.7-6 .4% Consi stent with incre ased risk for diabe brenda (pred iabet es) >OR=6 .5% Consi stent with diabe brenda REFER ENCE: Diabe brenda Care 2016, 39(Samson ppl.1 ):s13 -s22 Not Available [facility] (Lab) [address] [place], [address], 09/27/2022 20:17:56 09/28/19 23 09/27/2022 VITAM IN B12 (SARAH STEFANIE ) vb12 424 pg/mL 239-93 1 Not Available [facility] (Lab) [address] [place], [address], 09/27/2022 21:05:12 09/28/19 23 09/27/2022 FOLAT E, SERUM /PLAS MA folate 14.5 NG/mL 2.76-2 0.0 Not Available [facility] (Lab) [address] [place], [address], 09/27/2022 21:05:13 11/18/19 23 11/10/2022 compl ete PFT w/ post [facility] hodil ator samantha metry * No observ ation record ed. [email or web address] Not Available 11/23 11:31:45 11/18/1911/10/2022 six min walk test w/ O2 titra tion* No observ ation record ed. [email or web address] Not Available 05/2022 18:36:39 11/25/1911/10/2022 PFT, compl ete No observ ation record ed. [email or web address] [address], [place], [address], 12/04/2022 10:28:30 12/13/1912/12/2022 XR, chest , 2 view No observ ation record ed. [address] [facility], [place], [address], 12/13/2022 10:21:14 12/14/19 23 12/13/2022 US, echo ardio gram No observ ation record ed. [address], [place], [address], 12/14/2022 11:49:41 12/15/19 23 12/13/2022 US, debbie brandon smargy, compl ete No observ ation record ed. [address], [place], [address], 12/14/2022 11:50:06 12/26/19 23 12/25/2022 US, echo ardio gram No observ ation record ed. [address], [place], [address], 01/01/2023 16:55:53 Result Notes None recorded. Problems Name Problem SNOMED Code Status Onset Date Resolution Date Notes Provider Name and Address Organization Details Recorded Time Diabetes mellitus 81019729 Active 2020 Not Available [facility] 09:39:48 Chronic obstructiv e pulmonary disease 17047538 Active 2020 Not Available [facility] 3 09:39:48 Dyspnea on exertion 68927891 Active 2020 Not Available [facility] 3 09:39:48 Obstructiv e sleep apnea syndrome 23419971 Active 2021 Not Available [facility] 3 09:39:48 Cobalamin deficiency 161026545 Active 2021 Not Available [facility] 3 09:39:48 Vitamin D deficiency 83203254 Active 2021 Not Available [facility] 3 09:39:48 Open wound of right lower leg 2049468620752 9101 Active 2021 Not Available [facility] 3 09:39:48 Onychomyco sis 335147175 Active 2021 Not Available [facility] 3 09:39:48 Serum vitamin B12 below reference range 562941977 Active 2021 Not Available [facility] 3 09:39:48 Anemia 818556031 Active 2021 Not Available [facility] 3 09:39:48 Posterior rhinorrhea 04844436 Active 2022 Not Available [facility] 3 09:39:48 Paroxysmal atrial fibrillati on 271596906 Active 2022 Not Available [facility] 3 09:39:48 Congestive heart failure 79565561 Active 2022 Not Available [facility] 3 09:39:48 Morbid obesity 208080735 Active 2022 Not Available [facility] 3 09:39:48 Essential hypertensi on 96188063 Active 2022 Not Available [facility] 3 09:39:48 Testostero ne level below reference range 807972135 Active 2022 Not Available [facility] 3 09:39:48 Peripheral vascular disease 143522086 Active 2022 Not Available [facility] 3 09:39:48 Deficiency of vitamin D3 212623742 Active 2022 Not Available [facility] 3 09:39:48 Vitamin B12 deficiency (non anemic) 77374540 Active 2022 Not Available [facility] 3 09:39:48 Major depressive disorder 123802677 Active 2022 Not Available [facility] 3 09:39:48 Asthma 106591418 Active 2022 Not Available [facility] 3 09:39:48 Hyperlipid emia 83148193 Active 2022 Not Available [facility] 3 09:39:48 Iron deficiency anemia 68203267 Active 2022 Not Available [facility] 3 09:39:48 Dry skin dermatitis 228653523 Active 2022 Not Available [facility] 3 09:39:48 Proteinuri a 41989201 Active 2022 Not Available [facility] 3 09:39:48 Foot callus 948803538 Active 2022 Not Available [facility] 3 09:39:48 Polyneurop athy 15579771 Active 2022 Not Available [facility] 3 09:39:48 Type 2 diabetes mellitus 27584230 Active 2022 Not Available [facility] 3 09:39:48 Gastroesop hageal reflux disease 313301054 Active 2022 Not Available [facility] 3 09:39:48 Upper respirator y infection 38684473 Active 2022 Sadia adams [employer] [facility] 3 14:39:45 Chronic hypercapni c respirator y failure 926882471 Active 2022 JEANIE Lacey-ALBINO [address] [facility] [address], [place], [address] , [employer] [facility] [employer] [facility] 3 14:43:19 Open wound of toe of right foot 7805449980168 9100 Active 2022 Sadia adams [facility] [employer] [facility] 3 13:45:40 Pain of left shoulder joint 6565868685875 9109 Active 2022 VINNIE Grissom [address] [address], [place], [address] , [facility] [employer] [facility] 3 11:24:22 Neck pain 72790178 Active 2022 Sadia adams, [facility] [employer] [facility] 3 14:05:56 Problem Notes None recorded. Procedures Surgical History Date Name Laterality Status Provider Name and Address Organization Details Recorded Time Appendectomy completed Not Available [facility] 07/12/2022 00:43:19 Orthopedic Surgery completed Not Available [facility] 07/12/2022 00:43:19 Imaging Results None recorded. Procedure Notes None recorded. Medical Equipment None Reported. Allergies Allergen ID Allergen Name Allergen Category Reaction Reaction Severity Criticality Documentation Date Start Date Code Code System Note Provider Name and Address Organization Details Recorded Time 304 Product containin g penicilli n (product) medicatio n anaphylax is Not available Not available 07/12/2022 33331 8001 SNOMED Not Available [facility] 3 00:50:58 56678 penicilli n V Not available Not available Not available Not available 09/17/2023 7984 RxNorm Other react ions and sever ities : 'Adve rse react ion to subst ance - Sever e'. Hilda Morel APRN [address] [address], [place], [address], [facility] [employer] [facility] 4 08:06:02 Medications Name [...] Not Available Not Available BD Regular Bevel Prospect 21 gauge x 1 1/2 USE TO INJECT ONCE MONTHLY active Not Available Not Available No t Available Aloe [place] Antifunga l (miconazo le) 2 % topical [...] Vitals Date Recorded Body height Oxygen saturation Heart rate Body temperature Systolic And Diastolic Provider Name and Address Organization Details Last Updated DateTime 3 180.34 cm 97 % 80 /min 97.8 [degF] 136/80 mm[Hg] Not Available [facility] 3 00:45:03 Date Recorded Body height Oxygen saturation Heart rate Body temperature Systolic And Diastolic Provider Name and Address Organization Details Last Updated DateTime 3 180.34 cm 95 % 83 /min 96.3 [degF] 122/74 mm[Hg] Not Available [facility] 3 00:45:03 Date Recorded Body height Body temperature Heart rate Oxygen saturation Inhaled oxygen flow rate Systolic And Diastolic Provider Name and Address Organization Details Last Updated DateTime 3 180.34 cm 98.4 [degF] 76 /min 98 % 5 L/min 134/74 mm[Hg] Nilda Corbett MA [facility] [employer] 3 14:26:19 Date Recorded Body height Body temperature Heart rate Oxygen saturation Inhaled oxygen flow rate Provider Name and Address Organization Details Last Updated DateTime 12/19/2022 180.34 cm 98.9 [degF] 80 /min 94 % 4 L/min Anaid Flynn RN [facility] 3 14:13:14 Date Recorded Body height Provider Name an d Address Organization Details Last Updated DateTime 01/31/2023 180.34 cm Nilda Corbett MA [facility] 01/31/2023 10:43:04 Social History Question Answer Notes LastModified by Organizat ion Details LastModified Time Tobacco Smoking Status Never Smoker Not Available [facility] 07/12/2022 00:42:46 Do You Have An Advance Directive? Yes Living Will [id number] Information not available 07/12/2022 What Is Your Level Of Caffeine Consumption? Moderate [id number] Information not available 07/12/2022 How Much Tobacco Do You Chew? None [id number] Information not available 07/12/2022 In The 14 Days Before Symptom Onset, Have You Had Close Contact With A Laboratory-confir med COVID-19 While That Case Was Ill? No [id number] Information not available 07/12/2022 In The 14 Days Before Symptom Onset, Have You Had Close Contact With A Person Who Is Under Investigation For COVID-19 While That Person Was Ill? No [id number] Information not available 07/12/2022 What Type Of Diet Are You Following? CARBOHYDRATE Low Carb [id number].[id number] Information not available 07/12/2022 Which Illicit Or Recreational Drugs Have You Used? None [id number].12140 [id number] Information not available 07/12/2022 What Is The Highest Grade Or Level Of School You Have Completed Or The Highest Degree You Have Received? [id number] MIGRATION.96251 36402 Information not available 07/12/2022 Have There Been Any Changes To Your Family Or Social Situation? Yes Break Up MIGRATION.19699 [id number] Information not available 07/12/2022 What Is The Fluoride Status Of Your Home? Unknown MIGRATION.91126 62951 Information not available 07/12/2022 Are There Any Guns Present In Your Home? No MIGRATION.07949 30661 Information not available 07/12/2022 Do You Use Insect Repellent Routinely? No MIGRATION.06200 10040 Information not available 07/12/2022 [address] Do You Live? [place] MIGRATION.19682 94395 Information not available 07/12/2022 What Was The Date Of Your Most Recent Tobacco Screening? 01/31/2023 Information not available 01/31/2023 Do You Have Any Pets? Yes MIGRATION.10145 83214 Information not available 07/12/2022 What Is Your Relationship Status? Single MIGRATION.82031 82510 Information not available 07/12/2022 Do You Use Your Seat Belt Or Car Seat Routinely? Yes [id number] Information not available 07/12/2022 Do You Have Smoke And Carbon Monoxide Detectors In Your Home? Yes MIGRATION.80433 72893 Information not available 07/12/2022 Are You Passively Exposed To Smoke? Yes MIGRATION.21223 02275 Information not available 07/12/2022 Are There Any Smokers In Your House? No MIGRATION.61304 80522 Information not available 07/12/2022 How Much Tobacco Do You Smoke? No MIGRATION.04751 54696 Information not available 07/12/2022 Do You Use Sunscreen Routinely? No MIGRATION.20834 20526 Information not available 07/12/2022 How Many Years Have You Smoked Tobacco? 0 MIGRATION.05325 45693 Information not available 07/12/2022 Have You Recently Traveled Abroad? No MIGRATION.35128 62270 Information not available 07/12/2022 Sex: Male Functional Status Question Answer Note LastModified by Echoing Greenat ion Details LastModified Time Do you use any illicit or recreational drugs? No MIGRATION.560134 5021 Information not available 07/12/2022 What is your level of alcohol consumption? None MIGRATION.292469 9899 Information not available 07/12/2022 Do you or have you ever used smokeless tobacco? Never used smokeless tobacco MIGRATION.622832 2060 Information not available 07/12/2022 What is your occupation? Disabled MIGRATION.827641 1513 Information not available 07/12/2022 Do you or have you ever used e-cigarettes or vape? Never used electronic cigarettes MIGRATION.586628 9693 Information not available 07/12/2022 What is your exercise level? Occasional MIGRATION.093596 5250 Information not available 07/12/2022 Mental Status Question Answer Note LastModified by Organizat ion Details LastModified Time Do you feel stressed (tense, restless, nervous, or anxious, or unable to sleep at night)? [id number] [id number] Information not available 07/12/2022 Family History Relationship Description Onset Age of this Age Resolved Age Notes LastModified by Organization Details LastModified Time Mother Malignant neoplasm of colon deceas ed MIGRATION.[id number] Not available 07/12/2022 00:43:23 Mother Diabetes mellitus MIGRATION.854 [id number] Not available 07/12/2022 00:43:23 Unspecified Relation Family history of Hypertension both sides MIGRATION.050 [id number] Not available 07/12/2022 00:43:23 Medical History Condition Response CHEST XRAY N NERVE DISEASE Y BLINDNESS N BLADDER PROBLEMS N OTHER # 1 Y POLIO N LUNG DISEASE/DISORDER N RADIATION / CHEMOTHERAPY N COPD N Other # 2 N BLOOD DISEASES N SURGERY N EAR OR HEARING PROBLEMS N BOWEL PROBLEMS N FEMALE PROBLEMS / INFECTIONS N DEPRESSION (INCLUDING POST ) Y STROKE/TIA N CHEST CT N ULCERS N [...] PF 0 completed Hilda Morel APRN [address] [facility], [facility] [address], [place], [address], [facility] [employer] [facility] 09/17/2023 08:05:42 COVID-19, mRNA, LNP-S, PF, 100 mcg/0.5mL dose or 50 mcg/0.25mL dose 1 completed Hilda Morel APRN [address] [facility], [address], [place], [address], [facility] [employer] [facility] 09/17/2023 08:05:42 COVID-19, mRNA, LNP-S, PF, 100 mcg/0.5mL dose or 50 mcg/0.25mL dose 1 completed Hilda Morel APRN [address], [address], [place], [address], [facility] 09/17/2023 08:05:42 COVID-19, mRNA, LNP-S, bivalent, PF, 30 mcg/0.3 mL dose 2 completed Hilda Morel APRN [address], [address], [place], [address], [facility] [employer] [facility] 09/17/2023 08:05:42 influenza, unspecified formulation 3 completed Hilda Morel APRN [address], [address], [place], [address], [facility] [employer] [facility] 09/17/2023 08:05:43 Tdap 7 completed Hilda Morel APRN [address], [address], [place], [address], [facility] [employer] [facility] 09/17/2023 08:05:43 Tdap 0 completed Hilda Morel APRN [address], [address], [place], [address], [facility] [employer] [facility] 09/17/2023 08:05:43 tetanus toxoid, adsorbed 1 completed Hilda Morel APRN [address], [address], [place], [address], [facility] [employer] [facility] 09/17/2023 08:05:43 Influenza, split virus, quadrivalent, PF 7 constance Morel APRN [address], [address], [place], [address], [facility] [employer] [facility] 09/17/2023 08:05:43 Influenza, split virus, quadrivalent, PF 5 completed Hilda Morel APRN [address], [address], [place], [address], [employer] [facility] [employer] [facility] 09/17/2023 08:05:43 Influenza, split virus, quadrivalent, PF 6 completed Hilda Morel APRN [address], [address], [place], [address], [employer] [facility] [employer] [facility] 09/17/2023 08:05:43 Influenza, split virus, quadrivalent, PF 2 completed Hilda Morel APRN [address], [address], [place], [address], [employer] [facility] [employer] [facility] 09/17/2023 08:05:43 influenza, unspecified formulation 2 completed Hilda Morel APRN [address], [address], [place], [address], [employer] [facility] [employer] [facility] 09/17/2023 08:05:43 COVID-19, mRNA, LNP-S, PF, 30 mcg/0.3 mL dose 1 completed Hilda Morel APRN [address], [address], [place], [address], [employer] [facility] [employer] [facility] 09/17/2023 08:05:42 Influenza, split virus, quadrivalent, preservative 0 completed Hilda Morel APRN [address], [address], [place], [address], [employer] [facility] [employer] [facility] 09/17/2023 08:05:42 tetanus toxoid, unspecified formulation 1 completed Not Available [facility] 10/19/2022 09:39:50 COVID-19, mRNA, LNP-S, PF, 100 mcg/0.5mL dose or 50 mcg/0.25mL dose 1 completed Hilda Morel APRN [address], [address], [place], [address], [employer] [facility] [employer] [facility] 09/17/2023 08:05:42 zoster recombinant 0 completed Hilda Morel APRN [address], [address], [place], [address], [place] [facility] [employer] 09/17/2023 08:05:42 Influenza, split virus, quadrivalent, preservative 0 completed Hilda Morel, ACCOUNT UNDERWRITER [address], [address], [place], [address], [facility] [employer] 09/17/2023 08:05:42 zoster recombinant 0 completed Hilda Morel, ACCOUNT UNDERWRITER [address], [address], [place], [address], [facility] [employer] 09/17/2023 08:05:42 Influenza, split virus, quadrivalent, PF 1 completed Not Available [facility] 10/19/2022 09:39:50 pneumococcal polysaccharide PPV23 0 completed Not Available [facility] 10/19/2022 09:39:50 Past Encounters Encounter ID Performer Location Encounter Start Date Encounter Closed Date Diagnosis/Indication Diagnosis SNOMED-CT Code Diagnosis ICD10 Code Diagnosis IMO Codes Diagnosis Note [id number] VINNIE Grissom AHS_GMG Internal Med [facility] 15 2043 [facility], [facility] [address] [place] [address] 07/29/2020 00:00:00 07/29/2020 12:49:19 [id number] Nicholas rodriguez MD S_GMG Internal Med Halle cifuentes [facility]1 [facility] , [facility] [place] [place] [address] 10/13/2020 00:00:00 11/11/2020 17:16:57 [id number] A[facility]Histor ic[facility]way [facility] [place] [facility] [place] [address] [place] [address] 10/20/2020 00:00:00 10/20/2020 14:00:37 [id number] A[facility]Histor [facility] [place] [address] [place] [address] 11/19/2020 00:00:00 11/19/2020 14:47:24 [id number] Nicholas rodriguez MD [facility] Internal Med [facility] [address] [facility], [address] [place] [address] 01/31/2021 00:00:00 01/31/2021 14:10:02 [id number] A[facility]_Histor ic[facility]Gateway A[facility] [place] [address] [place] [address] 02/23/2021 00:00:00 02/23/2021 15:04:13 [id number] Nicholas rodriguez MD A[facility]G Internal Med [place] cifuentes [address] [place] [address] [place] [address] 04/25/2021 00:00:00 04/25/2021 13:11:03 [id number] AHS_Histor ic_Gateway A[facility]G [place] [address] [place] [address] 06/01/2021 00:00:00 06/01/2021 16:22:35 [id number] Nicholas rodriguez MD A[facility]G Internal Med [place] [address] [place] [address] y , [place] [address] 08/03/2021 00:00:00 08/03/2021 13:19:02 [id number] AHS_Histor ic[facility]Gateway A[facility]G [place] [facility] [place] [address] [place] [address] 08/03/2021 00:00:00 08/03/2021 11:45:55 [id number] AHS_Histor ic[facility]Gateway A[facility]G Podiatry [place] [address] [place] [address] 08/22/2021 00:00:00 08/23/2021 11:01:51 [id number] Belinda Alonzo [facility] AHS_GMG Pul[place] gy [place] [address] [place] [address] 2021 00:00:00 2021 13:52:34 [id number] Nicholas rodriguez MD [facility] Internal [facility] [address] [facility] [address] [address] 11/17/2021 00:00:00 11/17/2021 11:06:30 [id number] Nicholas rodriguez MD [facility] Internal Med Halle hancock [address] [place] [address] [place] [address] 01/11/2022 00:00:00 01/11/2022 13:46:47 [id number] Nicholas rodriguez MD [facility] Internal Med [facility] 2043 [facility], [address] [address] 06/06/2022 00:00:00 06/06/2022 16:36:20 [id number] Belinda Alonzo, [facility] [place] [facility] [place] [address] [facility] [address] [place] [address] 06/20/2022 00:00:00 06/20/2022 11:54:13 [id number] Nicholas rodriguez MD [facility] [address] [place] [address] [place] [address] 09/27/2022 14:06:36 09/27/2022 14:50:02 Paroxysmal atrial fibrillation 822706960 I48.0 on cardizem, xarelto, digoxin, follows cardiology - Dr. Fang referral to Dr. Zelaya as requested Congestive heart failure 66010196 I50.9 as above Morbid obesity 924726657 E66.01 he has decided against bariatric surgeryHe is considerin g surgery again, he wants to do some research as to where he would like to be referred and he will call us when he is ready for a referralco ntinue diet/exerc ise efforts Polyneuropathy 46133200 G62.9 follows neurology- ESTEBAN Rizvi at [facility] t a new neurology referral per his request-Dinh Winter with [facility] Essential hypertension 74377890 I10 on lisinopril , lasix, follows cardiology as above Testostero ne level below reference range 966040647 R89.1 on testostero ne, follows urology- Dr. Dunham Obstructiv e sleep apnea syndrome 50356348 G47.33 on CPAP- follows pulm for compliance - Belinda Alonzo Peripheral vascular disease 377439434 I73.9 follows cardiology as aboveappt with podiatry as above Type 2 roro betes mellitus 50485335 E11.9 now off metformin, working on lifestyle measuresfo [facility] podiatry for foot care Vitamin D deficiency 347 58380 E55.9 on supplement Vitamin B1 2 deficiency (non anemic) 16612207 E53.8 on supplement Gastroesop hageal reflux disease 699727808 K21.9 on omeprazole Major depr essive disorder 949512815 F32.9 on sertraline call office if any change in mood or behaviorde clines psychiatry referral at this time Asthma 236811771 J45.90 9 on Trelegy, follows pulm as above, on home O2 of 5L with activity and at night Hyperlipidemia 18756499 E78.5 on rosuvastat in Iron defic iency anemia 16454519 D50.9 on supplement now following hematology - Dr. Carrillo- has his 1st appointmen t later this month Dry skin dermatitis 2600 79981 L85.3 on ammonium lactate lotion to BLE Proteinuria 61367058 R80 .9 follows nephrology - Dr. Santana/George ack Foot callus 956373242 L8 4 get appt with podiatry as above [id number] Belinda Alonzo, [facility]GM[facility] Pulmon[place] gy [place] [address] [place] [address] 12/19/2022 14:07:55 12/19/2022 15:08:45 Chronic hypercapnic respiratory failure 552667971 J96.12 PFT 10/2022 with FEV1 31%CO2 inpatient [...] at rest Chronic ob structive pulmonary disease 93615371 J44.9 PFT 03/2020 [facility] with FEV1 40%Repeat 10/2022 with FEV1 31% - in chartConti nue Bevespi and FloventHe is aware to rinse and spitDiscus sed reportable signs and symptomsRT C in 3-4 weeks, PRN for concernsOr jade for POC with strap today Dependence on supplemental oxygen [id number] 07 Z99.81 He has good use and benefit Obstructiv e sleep apnea syndrome 83832988 G47.33 NIV order as above [id number] Nicholas rodriguez MD AHS_GMG Internal Med [place] c[address]es [address] , [place] [address] 01/31/2023 10:36:22 01/31/2023 11:36:45 Paroxysmal atrial fibrillation 846237614 I48.0 on cardizem, xarelto, digoxin, follows cardiology - Dr. Zelaya Congestive heart failure 52057937 I50.9 as aboveon lasix and spironolac tone from cardiology Morbid obesity 935952975 E66.01 he has decided against bariatric surgeryHe is considerin g surgery again, he wants to do some research as to where he would like to be referred and he will call us when he is ready for a referralco ntinue diet/exerc ise efforts Polyneuropathy 66729051 G62.9 follows neurology- -Lizzie Winter with [facility] Essential hypertension 42225584 I10 on lisinopril , lasix, follows cardiology as above Testostero ne level below reference range 698195318 R89.1 on testostero ne, follows urology- Dr. Dunham Obstructiv e sleep apnea syndrome 79726379 G47.33 on CPAP- follows pulm for compliance - Belinda Alonzo Peripheral vascular disease 998457656 I73.9 follows cardiology as aboveappt with podiatry as above Type 2 roro betes mellitus 94678529 E11.9 now off metformin, working on lifestyle measuresfo [facility] podiatry for foot care Vitamin D deficiency 347 26249 E55.9 on supplement Vitamin B1 2 deficiency (non anemic) 48475426 E53.8 on supplement Gastroesop hageal reflux disease 907925003 K21.9 on omeprazole Major depr essive disorder 652048551 F32.9 on sertraline call office if any change in mood or behaviorde clines psychiatry referral at this time Asthma 737424875 J45.90 9 on Trelegy, follows pulm as above, on home O2 of 5L with activity and at night Hyperlipidemia 07352189 E78.5 on rosuvastat in Iron defic iency anemia 57845688 D50.9 on supplement now following hematology - Dr. Carrillo Dry skin dermatitis 2600 81753 L85.3 on ammonium lactate lotion to BLE Proteinuria 16117645 R80 .9 follows nephrology - Dr. Santana/George ack Foot callus 837729009 L8 4 get appt with podiatry as above Pain of le ft shoulder joint [id number] 7242428 M25.512 He will call us with the name of the Ortho he wants to see, he does not want a referral at this time, wants to find someone in [place] or [facility] Concerns Section Related Observation LastModified by Organization Detai ls LastModified Time None Recorded Concern Status LastModified by Organization Details LastModified Time None Recorded Advance Directives Directive Y: living will Payers Insurance Date Sequence Insurance Name Policy Number Policy Marroquin Covered Member ID Marroquin Member ID Guarantor Name 01/31/2023 1 [facility] (MEDICARE - MEDICAID REPLACEMENT HMO) [id number] Justo Hancock Jr [id number] Justo Hancock 09/27/2022 1 [facility] (MEDICAID HMO) [id number] Justo Hancock [id number] Justo Hancock 09/27/2022 1 [place] Justo aHncock [id number] Justo Hancock Notes Date Note Type Note [...] Zelaya for cardiology and Lizzie Best in [place] for neurology. He follows up again with [...] lab work today. Jeniffer Veras, JEANIE-C [address] [facility], [address], [place], [address], [email or web address] 09/27/2022 15:25:53 12/19/2022 text/html Mr Hancock presents today to follow up on recent hospitalization [...] is unable to lie flat Belinda Alonzo, JEANIE-BC [address], [address], [place], [address], [email or web address] 12/19/2022 15:55:31 01/31/2023 text/html This is a telehealth visit conducted via telephone audio only. Patient agrees to telehealth visit. Justo presents today via telephone audio for follow-up. He was unable to make it into the office as he was unable to get a ride. He was hospitalized at [facility] beginning of December for acute on chronic respiratory failure and CHF. He was placed on BiPAP. He had never had to be intubated. He is now on home BiPAP. 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 Zelaya. He reports they started him [...] wants to see. Jeniffer Veras, JEANIE-C [address] [facility], [facility] [address], [place], [address], [facility] 01/31/2023 14:04:00
== END 2025-04-02 14:04 | disposition home or self-care (01) ==
PROVIDERS: PCP Nurse Practitioner Family; Visit Provider Nurse Practitioner Family
DX: M25.362 Other instability, left knee (principal); M23.8X2 Other internal derangements of left knee; M17.11 Unilateral primary osteoarthritis, right knee; M25.462 Effusion, left knee
CPT/HCPCS: 73721

== ENCOUNTER 2025-04-23 12:57 | Outpatient (CLI) | payer MEDICARE, MEDICAID, SELFPAY ==
--- NOTE | ~2025-04-23 | US_ITS ---
EXAMINATION: US arterial ankle brachial ind DATE: 04/23/2025 13:56 INDICATION: Other specified and symptoms and signs involving the circulatory system. Peripheral vascular disease risk factors of obesity, hyperlipidemia and hypertension TECHNIQUE: Segmental pressures and plethysmographic and Doppler waveforms of the brachial and lower extremity arteries were obtained. COMPARISON: None. FINDINGS: Right and left brachial artery pressures of 90 mm Hg and 93 mm Hg, respectively, are concordant (normal difference <= 30 mmHg). The right ankle-brachial index (PENNY) is 1.52 (normal >= 0.9-1.0). The right great toe-brachial index (TBI) is 1.13 (normal >= 0.65). Arterial Doppler waveforms are triphasic with brisk systolic upstrokes at both right posterior tibial and dorsalis pedis arteries. The left PENNY is 1.34. The left TBI is 0.96. Arterial Doppler waveforms are triphasic with brisk systolic upstrokes at both left posterior tibial and dorsalis pedis arteries. IMPRESSION: 1. No significant arterial occlusive disease to either lower limb with normal bilateral ABIs and TBIs. Reviewed, dictated and finalized at location A. SURGERY TECHNICIAN IMPRESSION: 1. No significant arterial occlusive disease to either lower limb with normal b ilateral ABIs and TBIs.
== END 2025-04-23 12:58 | disposition home or self-care (01) ==
LOC: CHSIMG 13:00
PROVIDERS: PCP Nurse Practitioner Family; Visit Provider Orthopaedic Surgery
DX: R09.89 Other specified symptoms and signs involving the circulatory and respiratory systems (principal)
CPT/HCPCS: 93922